=== PATIENT | female | born 1955 | race Caucasian/White ===

== ENCOUNTER → 2019-05-02 13:11 | Outpatient (CLI) | payer OTHER, SELFPAY ==
--- NOTE | ~2019-05-02 | MM_ITS ---
EXAMINATION: MM screening boo BI w jocelyn HISTORY: Screening mammogram TECHNIQUE: Craniocaudal and mediolateral oblique 3-D tomosynthesis images were obtained and synthetic 2-D images were generated. CAD analysis was submitted and interpreted. COMPARISON: No prior mammogram is available for comparison at this institution. BREAST PARENCHYMAL COMPOSITION: The breasts are heterogeneously dense, which may obscure small masses . FINDINGS: Scattered bilateral benign calcifications. There is no evidence of suspicious mass, calcifi cation, or architectural distortion to suggest malignancy in either breast. There has been no suspici ous interval change. IMPRESSION: 1. No mammographic evidence of malignancy. 2. Recommend routine screening mammography in one year. BI-RADS Category 2: Benign finding(s). Reviewed, dictated and finalized at location A. RIBUTION DRIVER
--- NOTE | ~2019-05-02 | DEXA_ITS ---
Bone Density Report Name: Yessenia Wallis Age: 63 Sex: Female Ethnicity: White Date of : 1955 Indication: postmenopausal; screening for osteoporosis; parental hip fracture; height loss; hysterectomy; Referring Provider: Domo, Rosette Study: Bone densitometry was performed. Exam Date: May 02, 2019 Accession number: [id number] Bone Density: Region BMD T-score Z-score Classification AP Spine (L1-L4) 0.911 -1.2 0.5 Osteopenia Femoral Neck (Left) 0.848 0.0 1.5 Normal Total Hip (Left) 0.998 0.5 1.6 Normal Femoral Neck (Right) 0.786 -0.6 0.9 Normal Total Hip (Right) 0.979 0.3 1.5 Normal Total Hip Mean 0.989 0.4 1.6 Normal World Health Organization criteria for BMD impression classify patients as: Normal (T-score at or above -1.0), Osteopenia (T-score between -1.0 and -2.5), or Osteoporosis (T-score at or below -2.5). 10-year Fracture Risk: FRAX not reported because: Treated for osteoporosis Clinical Information Provided by Patient: Parent has had a hip fracture Smokes Is being treated for osteoporosis Has used the following medications: HRT (i.e. estrogen/hormone therapy) Has the following medical conditions: Hysterectomy Patient maximum height was 69 Menopause Age: 41 No regular weight bearing exercise Drinks caffeinated beverages Onset of menses at age 14 Number of children 1 Impression: The patient has low bone mass, based on the Total Spine T-score. The patient has risk factors, including: parental hip fracture, smoking. Discussion: It is important to ask patients whether they are taking their medications and to encourage continued and appropriate compliance with their osteoporosis therapies to reduce fracture risk. It is also important to review their risk factors and encourage appropriate calcium and vitamin D intakes, exercise, fall prevention and other lifestyle measures. Follow-Up: Consider a repeat BMD and Vertebral Fracture Assessment (VFA) exam in 2 years or sooner if medically necessary, to reassess this patient's status. Reported by: DUDLEY on 05/02/2019 1:47:00 PM. Reviewed, dictated and finalized at location AAisha AVINA
== END ==
PROVIDERS: Visit Provider Nurse Practitioner Family
DX: M85.88 Other specified disorders of bone density and structure, other site (principal); Z78.0 Asymptomatic menopausal state; Z12.31 Encounter for screening mammogram for malignant neoplasm of breast
CPT/HCPCS: 77063; 77067; 77080

== ENCOUNTER 2020-01-08 10:59 | Outpatient (CLI) | payer MEDICARE, OTHER, SELFPAY ==
--- NOTE | ~2020-01-08 | CT_ITS ---
EXAMINATION:CT lung screening DATE: 01/08/2020 11:23 INDICATION: Personal history of tobacco dependence. Current smoker with 40 pack year history. TECHNIQUE: Computed tomography (CT) of the chest was performed without intravenous contrast. Automate d exposure control and iterative reconstruction technique were employed. The dose-length product (DLP ) was 73.13 mGy-cm. COMPARISON: None. FINDINGS: There is mild scarring at the lung apices. There is mild emphysema. There is a 3.4 x 2.8 cm mass in the lingula, consistent with primary bronchogenic carcinoma. There is a 15 mm nodule in left upper lobe, consistent with primary bronchogenic carcinoma versus metastatic disease. There are grea ter than 15 other scattered nodules in the lungs measuring up to 7 mm, consistent with granulomatous disease versus metastatic disease. A calcified right lung nodule and calcified hilar lymph nodes are consistent with old granulomatous disease. There are a few small scattered groundglass opacities in t he lungs, likely benign. No pleural effusion. The heart size is normal. No pericardial effusion. Ther e are changes of cholecystectomy. There is a 13 mm calcified nodule in the thyroid, likely not clinic ally significant. There is mild thoracic spondylosis. IMPRESSION: 1. Lung-RADS category 4X: Very suspicious. CT-guided biopsy of the lingular mass is recommended. I ca lled this result to Dr. Lewis on 01/08/20 at 11:38 AM. Reviewed, dictated and finalized at location A. IMPRESSION: 1. Lung-RADS category 4X: Very suspicious. CT-guided biopsy of the lingular mas s is recommended. I called this result to Dr. Lewis on 01/08/20 at 11:38 AM.
== END 2020-01-08 11:00 | disposition home or self-care (01) ==
PROVIDERS: PCP Internal Medicine Gastroenterology; Visit Provider Internal Medicine Hematology & Oncology
DX: Z12.2 Encounter for screening for malignant neoplasm of respiratory organs (principal); Z87.891 Personal history of nicotine dependence
CPT/HCPCS: G0297

== ENCOUNTER 2020-01-10 07:28 | Outpatient (CLI) | payer MEDICARE, OTHER, SELFPAY ==
--- NOTE | ~2020-01-10 | US_ITS ---
US abdomen complete EXAMINATION: US Abdomen Complete INDICATION: Increased SGOT PROCEDURE: Realtime High Resolution abdomen ultrasound. COMPARISON: No prior studies for comparison FINDINGS: Gallbladder is surgically absent. Common bile duct measures 4 mm. Liver echotexture within normal limits without focal mass. Liver surface is a nodular appearance, master picious for cirrhosis. Pancreas within normal limits. Pancreatic tail is obscured by bowel gas. Spl een is unremarkeable. Renal echotexture is within normal limits bilaterally without hydronephrosis, c ontour deforming mass or renal stone. Right kidney measures 10.6 cm. Left kidney measures 11.1 cm. Visualized aspects of the aorta and IVC are within normal limits. Portal vein is patent. No sonograph ic Ott's sign indicated by the technologist. IMPRESSION: 1: Nodular appearing liver surface, suspicious for cirrhosis. Reviewed, dictated and finalized at location B.
== END 2020-01-10 07:29 | disposition home or self-care (01) ==
PROVIDERS: PCP Internal Medicine Gastroenterology; Visit Provider Nurse Practitioner Adult Health
DX: R74.01 Elevation of levels of liver transaminase levels (principal)
CPT/HCPCS: 76700

== ENCOUNTER 2020-01-17 02:46 | Outpatient (CLI) | payer MEDICARE, OTHER, SELFPAY ==
[2020-01-17 18:02] LABS: SARS-CoV-2 RNA PCR Negative
== END 2020-01-17 02:47 | disposition home or self-care (01) ==
LOC: ANHCOVIDDT 02:46
PROVIDERS: PCP Internal Medicine Gastroenterology; Visit Provider Internal Medicine Hematology & Oncology
DX: Z01.812 Encounter for preprocedural laboratory examination (principal); Z20.828 Contact with and (suspected) exposure to other viral communicable diseases
CPT/HCPCS: 87635; C9803; U0003

== ENCOUNTER 2020-01-20 09:25 | Outpatient (CLI) | payer MEDICARE, OTHER, SELFPAY ==
[2020-01-13 09:50] VITALS: BMI 24.0
[2020-01-20] VITALS (10 sets, daily range): BP systolic 131–154; BP diastolic 73–92; PULSE 72–110; RESP 16–19; O2SAT 95–99
--- NOTE | ~2020-01-20 | XR_ITS ---
EXAMINATION: XR chest 1V DATE: 01/20/2020 12:07 INDICATION: Status post left lung biopsy TECHNIQUE: frontal view of the chest was obtained. COMPARISON: CT dated 01/08/2020 FINDINGS: The biopsied lingular mass projects over the left midlung zone. There is a smaller left upper lobe no dule projecting slightly cephalad to the aortic arch. No other airspace opacities, pulmonary edema, p leural effusion or pneumothorax. The cardiomediastinal silhouette is normal. IMPRESSION: 1. Nodules at the left upper lobe and lingula which are concerning for malignancy. No pneumothorax or other acute cardiopulmonary disease post biopsy of the larger lingular nodule. Reviewed, dictated and finalized at location A. ITY MAINTENANCE WORKER IMPRESSION: 1. Nodules at the left upper lobe and lingula which are concerning for malignan cy. No pneumothorax or other acute cardiopulmonary disease post biopsy of the l arger lingular nodule.
--- NOTE | ~2020-01-20 | CT_ITS ---
EXAMINATION: CT biopsy lung DATE: 01/20/2020 12:18 INDICATION: Left lung mass TECHNIQUE: The procedure including the risks and benefits was discussed with the patient. Risks discu ssed included infection, approximately 1/20 risk of symptomatic hemorrhage beyond mild hemoptysis, ap proximately 1/3 risk of pneumothorax, and approximately 1/10 risk of pneumothorax severe enough to wa rrant chest tube placement. The patient understood the risks and agreed to proceed. The patient was p laced supine in a slight RPO position. The skin overlying the lateral left chest wall was prepped an d draped in sterile fashion. Anesthetic was administered with 1% lidocaine subcutaneously. A 19 gau ge outer needle was advanced under CT guidance to the lesion of interest. A 20 gauge core biopsy need le was then used to obtain 5 core biopsy specimens. The needle was removed and the entry site was turner aned and dressed. There were no immediate complications. The dose-length product was 98.04 mGy-cm. FINDINGS: CT images demonstrate the outer needle tip adjacent to a 3.2 x 2.7 cm spiculated mass at th e posterior lingula. IMPRESSION: 1. Successful CT-guided biopsy of 3.2 cm mass at the lingula. Reviewed, dictated and finalized at location A. NESS SERVICES SPECIALIST SALES
--- NOTE | ~2020-01-20 | XR_ITS ---
EXAMINATION: XR chest 1V portable DATE: 01/20/2020 14:52 INDICATION: Left lung mass status post percutaneous biopsy. TECHNIQUE: A single frontal view of the chest was obtained. COMPARISON: Chest single view at 100 p.m. FINDINGS: There is a mass in lingula. There is a nodule in left upper lobe. No pleural effusion or pn eumothorax. The heart size is normal. IMPRESSION: 1. Mass and nodule in left lung suspicious for malignancy. Reviewed, dictated and finalized at location A. STRATION SPECIALIST
--- NOTE | ~2020-01-20 | XR_ITS ---
EXAMINATION: XR chest 1V portable DATE: 01/20/2020 13:10 INDICATION: Left lung mass status post percutaneous biopsy. TECHNIQUE: A single frontal view of the chest was obtained on 2 radiographs. COMPARISON: Chest single view at 12:02 PM FINDINGS: There is a mass in the lingula. There is a nodule in left upper lobe. No pleural effusion o r pneumothorax. The heart size is normal. IMPRESSION: 1. Mass and nodule in left lung suspicious for malignancy. Reviewed, dictated and finalized at location A. ICER
[2020-01-20 09:47] LABS: Basophils Absolute Auto 0.1 K/mm3 (0.0-0.1); Basophils Percent Auto 1.1 % (0.2-1.2); Eosinophils Absolute Auto 0.1 K/mm3 (0-0.3); Eosinophils Percent Auto 0.8 % (0-4.4); Hematocrit 50.5 % (37.0-47.0); Hemoglobin 17.2 g/dL (12.0-15.0); Immature Granulocyte Absolute 0.01 K/mm3 (0.00-0.031); Immature Granulocyte Percent A 0.1 % (0-0.5); Lymphocytes Absolute Auto 2.07 K/mm3 (0.9-3.2); Lymphocytes Percent Auto 27.8 % (18.3-44.2); Mean Corpuscular HGB Conc 34.1 g/dl (32-36); Mean Corpuscular Hemoglobin 33.5 pg (26-34); Mean Corpuscular Volume 98.4 fl (80-100); Mean Platelet Volume 9.7 fl (7.4-10.4); Monocytes Absolute Auto 0.6 K/mm3 (0.1-0.6); Monocytes Percent Auto 7.4 % (2.6-8.5); Neutrophils Absolute Auto 4.7 K/mm3 (1.3-6.7); Neutrophils Percent Auto 62.8 % (45.5-73.1); Platelet Count Result 266 k/mm3 (150-375); Red Blood Count 5.13 M/mm3 (4.2-5.4); Red Cell Distribution Width 12.1 % (11.5-14.5); White Blood Count 7.5 K/mm3 (4.5-10.0)
[2020-01-20 09:59] LABS: Prothrombin Time 13.2 Seconds (11.1-14.7)
--- NOTE | 2020-01-20 13:13 | SUR.PHASEII ---
PORTABLE CXR DONE.
--- NOTE | 2020-01-20 13:18 | SUR.PHASEII ---
1300; pt awake and alert. denies pain to lt chest. c/o headache. asking for coffee. cxr done at bedside. e 1305; report given to elvin lucero
--- NOTE | 2020-01-20 13:29 | SUR.PHASEII ---
DR. POLI GENTILE'S PT TO HAVE COFFEE ONCE 1300 XRAY IS DONE AND NO PNEUMOTHORAX.
--- NOTE | 2020-01-20 15:40 | SUR.PHASEII ---
DR. ASHTON CAME TO SEE PT PRIOR TO DISCHARGE.
== END 2020-01-20 15:30 | disposition home or self-care (01) ==
PROVIDERS: Radiology Diagnostic Radiology; PCP Internal Medicine Gastroenterology; Visit Provider Internal Medicine Hematology & Oncology
DX: C34.92 Malignant neoplasm of unspecified part of left bronchus or lung (principal)
CPT/HCPCS: 32405; 36415; 71045; 77012; 85025; 85610; 88305; 88342

== ENCOUNTER 2020-02-18 10:24 | Outpatient (CLI) | payer MEDICARE, OTHER, SELFPAY ==
--- NOTE | ~2020-02-18 | MR_ITS ---
EXAMINATION: MR brain/brain stem wo/w con DATE: 02/18/2020 11:47 INDICATION: Non-small cell cancer of left lung. TECHNIQUE: Magnetic resonance imaging (MRI) of the brain and brainstem was performed without with 13 mL MultiHance intravenous contrast. Sequences included sagittal and axial T1-weighted FSE, axial diff usion-weighted FS EPI, axial T2*-weighted GRE, axial T2-weighted FLAIR Propeller, and axial T2-weight ed Propeller. Postcontrast sequences included axial, sagittal, and coronal T1-weighted FSE. Apparent diffusion coefficient (ADC) maps were created. COMPARISON: None. FINDINGS: There is no intracranial hemorrhage, acute infarction, or abnormal intracranial mass lesion . 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 The ventricles are normal in size. The re is mild mucosal thickening in right maxillary sinus. The mastoid air cells are normal. The orbits are normal. IMPRESSION: 1. Normal brain. No evidence of metastatic disease. Reviewed, dictated and finalized at location A. ER THIRD
[2020-02-18 11:22] LABS: Estimated Glomerular Filt Rate > 60
== END 2020-02-18 10:25 | disposition home or self-care (01) ==
PROVIDERS: PCP Internal Medicine Gastroenterology; Visit Provider Internal Medicine Hematology & Oncology
DX: C34.92 Malignant neoplasm of unspecified part of left bronchus or lung (principal)
CPT/HCPCS: 70553; A9577

== ENCOUNTER 2020-03-05 08:56 | Outpatient (CLI) | payer MEDICARE, OTHER, SELFPAY ==
--- NOTE | ~2020-03-05 | PE_ITS ---
EXAMINATION: PET skull to mid thigh DATE: 03/05/2020 11:05 INDICATION: Non-small cell cancer of the left lung TECHNIQUE: mCi of 18-fluorodeoxyglucose (18-FDG) was administered i.v. Low dose computed tomography ( CT) images were acquired from the base of the brain to the proximal thighs for attenuation correction and anatomic localization. Positron emission tomography (PET) images were acquired after injection. Images including fused PET/CT images were reconstructed in axial, coronal, and sagittal planes. Autom atic exposure control is employed as a dose reduction technique. COMPARISON: CT dated 01/08/2020 FINDINGS: Head/neck: There is mild symmetric mucosal uptake in the neck without associated mass, likely physiologic. No ce rvical lymphadenopathy. Chest: There is a 1.4 cm left upper lobe nodule with maximum SUV of 6.4. There is a 3.7 x 2.9 cm lingular ma ss with maximum SUV of 7.34. Mild emphysema. There are additional scattered pulmonary nodules measuri ng up to 7 mm without abnormal FDG uptake there are areas of FDG uptake in the extrapleural fat poste riorly, likely physiologic. No associated mass. No thoracic lymphadenopathy. Scattered groundglass op acities are nonspecific, although likely benign. No significant pleural or pericardial effusion. Ther e is FDG uptake overlying multiple left posterior ribs. Considerations include misregistration artifa ct from adjacent uptake in the fat or less likely osseous metastases. No associated sclerotic or danica tic lesions are identified. Abdomen/pelvis/proximal thighs: No hypermetabolic activity is identified in the abdomen or pelvis. There are cholecystectomy clips. T he liver, spleen, pancreas, adrenal glands and kidneys are unremarkable. Nonobstructive bowel gas pat tern. No abnormal pelvic masses or fluid collections. IMPRESSION: 1. Left upper lobe masses are identified, largest in the lingula measuring 3.7 cm maximum axial dimen shelley. Both masses exhibit abnormal FDG uptake, consistent with malignancy, likely primary bronchogeni c carcinoma and/or metastatic disease. Multiple additional smaller pulmonary nodules measuring 7 mm o r less are identified without associated FDG uptake. This finding is nonspecific, although due to the ir small size. 2: FDG uptake overlying multiple left posterior ribs. Considerations include misregistration artifact from adjacent uptake in the fat or less likely osseous metastases. No associated sclerotic or blasti c lesions are identified. Consider correlation with nuclear bone scan. Reviewed, dictated and finalized at location A. GER FIBER IMPRESSION: 1. Left upper lobe masses are identified, largest in the lingula measuring 3.7 cm maximum axial dimension. Both masses exhibit abnormal FDG uptake, consistent with malignancy, likely primary bronchogenic carcinoma and/or metastatic disea se. Multiple additional smaller pulmonary nodules measuring 7 mm or less are id entified without associated FDG uptake. This finding is nonspecific, although d ue to their small size. 2: FDG uptake overlying multiple left posterior ribs. Considerations include mi sregistration artifact from adjacent uptake in the fat or less likely osseous m etastases. No associated sclerotic or blastic lesions are identified. Consider correlation with nuclear bone scan.
[2020-03-05 09:29] LABS: Glucose Point of Care 105 (65-105)
== END 2020-03-05 08:57 | disposition home or self-care (01) ==
PROVIDERS: PCP Internal Medicine Gastroenterology; Visit Provider Internal Medicine Hematology & Oncology
DX: C34.12 Malignant neoplasm of upper lobe, left bronchus or lung (principal)
CPT/HCPCS: 78815; A9552

== ENCOUNTER 2020-03-18 08:30 | Outpatient (CLI) | payer MEDICARE, OTHER, SELFPAY ==
--- NOTE | ~2020-03-18 | NM_ITS ---
EXAMINATION: NM bone scan whole body DATE: 03/18/2020 12:35 INDICATION: Malignant neoplasm of the left upper lobe TECHNIQUE: 25.2 mCi Tc-99m HDP was administered intravenously. Delayed whole-body scintigrams were o btained. COMPARISON: There are no relevant imaging studies at our institution. FINDINGS: Mild likely degenerative facet joint centered uptake on the left at C4-C5 and on the right at C2-C3. No abnormal uptake at the medial aspect of the bilateral posterior ribs at the sites of prior increas ed FDG uptake. Small focus of increased uptake in the region of the left ethmoid sinus likely related to sinus disease. Small focus of uptake at the left antecubital fossa likely at the site of radiotra cer injection. Mild lumbar levocurvature. IMPRESSION: 1. No evident metastatic disease. Reviewed, dictated and finalized at location A. H MIXER HELPER
== END 2020-03-18 08:31 | disposition home or self-care (01) ==
PROVIDERS: PCP Internal Medicine Gastroenterology; Visit Provider Internal Medicine Hematology & Oncology
DX: C34.12 Malignant neoplasm of upper lobe, left bronchus or lung (principal)
CPT/HCPCS: 78306; A9561

== ENCOUNTER 2020-03-30 00:38 | Outpatient (CLI) | payer MEDICARE, OTHER, SELFPAY ==
[2020-03-30 19:06] LABS: SARS-CoV-2 RNA PCR Positive
== END 2020-03-30 00:39 | disposition home or self-care (01) ==
LOC: ANHCOVIDDT 00:38
PROVIDERS: PCP Internal Medicine Gastroenterology; Visit Provider Surgery
DX: U07.1 COVID-19 (principal); Z01.812 Encounter for preprocedural laboratory examination
CPT/HCPCS: C9803; U0003

== ENCOUNTER 2020-03-31 09:30 | Outpatient (CLI) | payer MEDICARE, OTHER, SELFPAY ==
--- NOTE | 2020-03-31 09:34 | ECG_ITS ---
Measurements Intervals [place] Rate: 78 P: 78 SD: 161 QRS: -3 QRSD: 123 T: 98 QT: 389 QTc: 444 Interpretive Statements SINUS RHYTHM ATRIAL PREMATURE COMPLEXES LEFT BUNDLE BRANCH BLOCK ANTEROSEPTAL INFARCT OR DUE TO LBBB BASELINE ARTIFACT- I, II, AVR ABNORMAL ECG Electronically Signed On 03-31-2020 9:52:35 DIGITAL HARDWARE DESIGN ENGINEER by Jesus Garcia D.O.
[2020-03-31 10:02] LABS: Basophils Percent Auto 0.8 % (0.2-1.2); Eosinophils Percent Auto 0.8 % (0-4.4); Hematocrit 48.9 % (37.0-47.0); Hemoglobin 16.6 g/dL (12.0-15.0); Immature Granulocyte Absolute 0.02 K/mm3 (0.00-0.031); Immature Granulocyte Percent A 0.4 % (0-0.5); Lymphocytes Absolute Auto 1.47 K/mm3 (0.9-3.2); Lymphocytes Percent Auto 29.5 % (18.3-44.2); Mean Corpuscular HGB Conc 33.9 g/dl (32-36); Mean Corpuscular Volume 94.2 fl (80-100); Mean Platelet Volume 10.4 fl (7.4-10.4); Monocytes Absolute Auto 0.4 K/mm3 (0.1-0.6); Monocytes Percent Auto 8.8 % (2.6-8.5); Neutrophils Percent Auto 59.7 % (45.5-73.1); Platelet Count Result 156 k/mm3 (150-375); Red Blood Count 5.19 M/mm3 (4.2-5.4); Red Cell Distribution Width 13.9 % (11.5-14.5)
[2020-03-31 10:08] LABS: INR 0.9
[2020-03-31 10:09] LABS: Partial Thromboplastin Time 26.3 SECONDS (22.3-36.8)
== END 2020-03-31 09:31 | disposition home or self-care (01) ==
LOC: ANHSURGERY 09:34
PROVIDERS: PCP Internal Medicine Gastroenterology; Visit Provider Surgery
DX: Z01.818 Encounter for other preprocedural examination (principal); C34.90 Malignant neoplasm of unspecified part of unspecified bronchus or lung; Z51.81 Encounter for therapeutic drug level monitoring; Z79.899 Other long term (current) drug therapy; I44.7 Left bundle-branch block, unspecified
CPT/HCPCS: 36415; 85025; 85610; 85730; 93005

== ENCOUNTER 2020-05-11 00:26 | Day surgery (SDC) | payer MEDICARE, OTHER, SELFPAY ==
[2020-03-30 13:25] VITALS: BMI 23.6
[2020-04-30 14:00] VITALS: BMI 23.6
--- NOTE | ~2020-05-11 | XR_ITS ---
EXAMINATION: XR fl guide central line place EXAM DATE: 05/11/2020 13:00 INDICATION: Xander catheter insertion. TECHNIQUE: Fluoroscopy used during XR fl guide central line place performed by Dr. Jose Angel Washington MD. The DAP for this procedure was 1.6 mGym2. FINDINGS: Single frontal image demonstrating right-sided portacatheter, tip projecting over the expe cted location of the cavoatrial junction. Correlate with procedure note. IMPRESSION: Fluoroscopy used during XR fl guide central line place. Reviewed, dictated and finalized at location B. CE SUPPORT CLERK
--- NOTE | ~2020-05-11 | XR_ITS ---
EXAMINATION: XR chest port-a-cath/central EXAM DATE: 05/11/2020 13:23 INDICATION: Xander catheter insertion. TECHNIQUE: Portable AP frontal chest x-ray was obtained. Comparison is made to prior examination from 01/20/2020. FINDINGS: There is a right-sided portacatheter, tip projecting over the SVC, adequate. There is appro ximately 3 cm left midlung zone masslike density. Severe chronic hyperinflation. There is no pneumoth orax suspected. There are no pleural effusions. Cardiomediastinal silhouette is normal. IMPRESSION: 1. No evidence postprocedure pneumothorax. 2. Left midlung zone mass. Reviewed, dictated and finalized at location B. TERER HELPER
[2020-05-11 10:08] VITALS: BP 140/79; PULSE 88; RESP 18; TEMP 37.3; O2SAT 97
[2020-05-11] MEDS: LACTATED RINGERS 1,000 ML 30 ML IV CONT (10:25)
--- NOTE | 2020-05-11 11:31 | WPDANESEPPF ---
Anes - Initial Pre Proc Eval Procedure: Operation Date: 05/11/20 12:00 Proposed Procedures p Insertion Xander Cath - Jose Angel [place] MD Date/Time: 05/11/20 11:31 Surgeon: Jose Angel [place] MD Pre Op Diagnosis: Malignant Neoplasm Upper Lobe of Left Lung Patient Data Age: 64 Gender: F Height: 5 ft 8 in Weight: 68.8 kg Last Vital Signs Temp 37.3 C 05/11/20 10:08 Pulse 88 05/11/20 10:08 Resp 18 05/11/20 10:08 BP 140/79 05/11/20 10:08 Pulse Ox 97 05/11/20 10:08 Allergies Allergy/AdvReac Type Severity Reaction Status Date / Time pentazocine [From Anjali] Allergy Irritable Verified 05/11/20 10:31 Home Medications Medication Instructions Recorded Confirmed Type acetaminophen [Tylenol] 325 mg PO DAILY PRN 11/15/19 05/11/20 History aspirin 81 mg PO DAILY 11/15/19 05/11/20 History ibuprofen [Advil] 200 mg PO Q6H PRN 11/15/19 05/11/20 History lisinopril 5 mg PO DAILY 11/15/19 05/11/20 History fluticasone propionate [Flonase] 1 spray INTRANASAL DAILY 01/13/20 05/11/20 History ascorbic acid (vitamin C) [Vitamin 1 g PO DAILY 04/16/20 05/11/20 History C] zinc 50 mg PO DAILY 04/16/20 05/11/20 History alprazolam [Xanax] 0.25 mg PO BID 04/30/20 05/11/20 History dexamethasone See Rx Instructions .ROUTE .COMPLEX 04/30/20 05/11/20 History folic acid 1 mg PO DAILY 04/30/20 05/11/20 History ondansetron HCl [Zofran] 4 mg PO Q8H PRN 04/30/20 05/11/20 History Patient hx anesthesia problems: none Family hx anesthesia problems: none PMFSH Past Medical History Medical History Erythrocytosis HTN (hypertension) Lung cancer Family History Family History Grandparent Lung cancer Mother Breast cancer Small bowel cancer FH: kidney cancer Skin cancer Mother No problems noted. Father Skin cancer Social History Social History Smoking packs per day: 2 Smoking cigarettes per day: 40.0 Years smoked: 40 Smoking pack-years: 80.00 Smoking status: Current every day smoker Tobacco type: cigarettes Second hand tobacco smoke exposure: No Additional smoking assessment comments: cutting back since diagnosis Substance use: never Substance use type: does not use Living arrangements: with family Gender identity (if verbalized by the patient): Female Spiritual care concerns: No Anes - Eval Final PreProcedure Day of Procedure 05/11/20 11:31 Patient weight: normal Heart: regular rate and rhythm Lungs: decreased breath sounds Airway: Mallampati scale class II Neurological: alert and oriented Last oral intake: >/= 8 hours ASA classification: III Emergent: no Anesthetic plan: proceed Anesthesia type and monitoring: general GIVS and standard monitoring Informed Consent: The patient's anesthetic plan and its attendant risks and benefits were discussed with the patient/family/POA. Questions were solicited and answers provided to the satisfaction of the patient/family/POA.
--- NOTE | 2020-05-11 11:49 | PM.HPGS ---
History of Present Illness History of Present Illness Consent: Risks, benefits, and alternatives f placement of a Port-A-Cath have been discussed and questions answered. Patient agrees to proceed with procedure. Chief complaint: Malignant Neoplasm Upper Lobe of Left Lung Narrative: Yessenia Wallis is a 64 year old female who initially presented with an abnormal CT lung screening on 01/08/2020 which showed a 3.4 x 2.8 cm mass in the lingula, consistent with primary bronchogenic carcinoma. There is a 15 mm nodule in left upper lobe, consistent with primary bronchogenic carcinoma versus metastatic disease. There are greater than 15 other scattered nodules in the lungs measuring up to 7 mm, consistent with granulomatous disease versus metastatic disease. A calcified right lung nodule and calcified hilar lymph nodes are consistent with old granulomatous disease. Of note, she has a smoking history of 1 pack of cigarettes per day for over 40 years. She was being followed by Dr. Lewis for erythrocytosis. On 01/20/2020, she underwent a CT-guided biopsy of the left lung mass which revealed non-small cell carcinoma, favor adenocarcinoma. MRI of the brain on 02/18/2020 was negative for metastatic disease. PET scan on 03/05/2020 showed a 1.4 cm left upper lobe nodule with maximum SUV of 6.4, as well as a 3.7 x 2.9 cm lingular mass with maximum SUV of 7.34. There were no other FDG-avid lung findings. Multiple additional smaller pulmonary nodules did not have FDG uptake. There was some concern of FDG uptake overlying ribs, thought however to be misregistration artifact. Bone scan on 03/18/2020 confirmed no evidence of metastatic disease. She is referred now for a discussion regarding her radiotherapy options. Clinically, she is asymptomatic of her lung cancer and has a good performance status. She continues to smoke but has been cutting back since her diagnosis. She denies shortness of breath, chest pain, cough, headaches, numbness and weakness. She does have anxiety related to her diagnosis and upcoming treatment. She presents today for placement of a Port-A-Cath so that she could have combined chemo and radiation. Review of Systems Constitutional: Constitutional: Reports no additional constitutional complaints, Reports fatigue and Denies malaise Eyes: Eyes: Denies change in vision and Denies loss of vision ENT: Reports Normal hearing present, Denies change in voice, Denies dizziness, Denies hoarseness and Denies sore throat Cardiovascular: Cardiovascular: Denies chest pain, Denies leg edema and Denies dyspnea Respiratory: Respiratory: Denies cough, Denies dyspnea and Denies wheezing Comments: Patient has a 40 pack-year history of smoking cigarettes. Gastrointestinal: Gastrointestinal: Denies hematochezia, Denies change in bowel habits and Denies heartburn Comments: History of previos Lap caridad and ALEXANDRA BSO. Had no anesthesia problems. Genitourinary: Genitourinary: Denies urinary frequency and Denies urinary incontinence Neurologic: Reports Normal hearing present, Denies confusion, Denies dizziness, Denies loss of vision, Denies memory loss and Denies seizure-like activity Psychiatric: Psychiatric: Denies confusion, Denies depression and Denies memory loss Endocrine: Endocrine: Denies cold intolerance and Reports fatigue Hematologic/Lymphatic: Hematologic/Lymphatic: Denies easy bleeding and Denies easy bruising Allergic/Immunologic: Allergic/Immunologic: Denies wheezing PMFSH Past Medical History Medical History (Updated 05/11/20 @ 11:56 by Jose Angel Washington MD) Erythrocytosis HTN (hypertension) Lung cancer Family History Family History Grandparent Lung cancer Mother Breast cancer Small bowel cancer FH: kidney cancer Skin cancer Mother No problems noted. Father Skin cancer Social History Social History Smoking packs per
[2020-05-11] MEDS: KETOROLAC 15 MG/ML VIAL (*BKC) IV PUSH (12:03)
--- NOTE | 2020-05-11 12:10 | WPDHPUPDATE1 ---
History and Physical Update Update Date/Time: 05/11/20 12:10 History and Physical has been reviewed, including an updated exam of the patient. There are NO changes in the patient's condition. Risks, benefits, and alternatives have been discussed and questions answered. Patient agrees to proceed with procedure.
[2020-05-11] MEDS: ceFAZolin 2 GM/D5W 50 ML 2 GM/50 ML BAG IVPB (12:14)
[2020-05-11] MEDS: BUPIVACAINE/EPINEPHRINE 0.5% 30 ML VIAL INFILTRATE (12:42)
[2020-05-11] MEDS: HEPARIN SODIUM 5,000 UNITS/ML VIAL 5000 UNITS IRRIGATION (12:43)
[2020-05-11 13:09] VITALS: BP 158/72; PULSE 72; RESP 12; O2SAT 100
--- NOTE | 2020-05-11 13:21 | PM.PROC ---
Procedure Note - Detailed Date of procedure: 05/11/20 Pre-op diagnosis: Malignant Neoplasm Upper Lobe of Left Lung Procedure performed: Ultrasound-guided placement of Port-A-Cath Description of procedure: Patient was seen and marked in the pre-op area prior to coming to the OR. Patient was brought to the operating room. He was placed supine on the operating table and general IV sedation was induced. The nurse cost and sales record supervisor provided oxygen and IV sedation. Patient's head was carefully turned to the left side while in the supine position and the patient's entire neck and anterior chest on both sides was prepped and draped in the usual sterile fashion. Following this the appropriate time-out was completed confirming procedure and patient. We confirmed that all the needed equipment was present in the room. Following this the ultrasound probe was draped into the field and using the probe we carefully identified the carotid artery and jugular vein on the right neck. I marked the skin directly over the Rt. internal jugular vein. Following this, using the continuous ultrasound guidance, a Cook needle was placed through the skin into this vein. I then was able to draw back good dark blood. Once this was completed a guidewire using a J-tip was advanced through the needle and then the needle and the guidewire cover were withdrawn. C-arm fluoroscopy was used to confirm that the guidewire was nicely in the venous system. Once this was confirmed with the C - arm I preceded on by making the pocket for the port on the patient's anterior right chest approximately 3 centimeters below the clavicle overlying the chest wall. Local anesthetic was infiltrated into the skin where there was a transverse incision marked out. Incision was made and we made a pocket inferior to the incision with just a little dissection superior. The low-profile port was tried in the pocket and seemed to fit well. Following this the catheter which had been placed on a tunneling device was tunneled from the port site on the anterior right chest up to the right neck where a small incision had been made with an #11 blade knife. Then the catheter was pulled through so that we would have 15 centimeters to put into the central venous system once the dilation took place. Following this we placed the dilator and sheath over the guidewire in the jugular vein and carefully dilated the tract into the central venous system. The guidewire and dilator were then removed, carefully covering the end of the sheath to prevent air embolus. The end of the catheter which had been cut off straight across and the tip checked was then inserted into the sheath and into the neck. I then carefully pulled the 2 arms of the tear-away sheath away as the manufacturing assistant held the catheter in position with a DeBakey forceps. Following this we checked the position of the catheter with C-arm fluoroscopy confirming that the tip seemed to be in the distal superior vena cava near the junction with the right atrium. I felt that it was in good position and so the rest of the catheter was pulled down toward the feet into the port site. We then measured to the appropriate position to cut the catheter to attach it to the port stem. Then the connector sealing device for the catheter port was placed onto the catheter and then the catheter cut to the appropriate length and inserted onto the stem of the port. Then the connector was advanced onto the stem over the catheter sealing it to the port. A single 3- 0 Prolene suture was also used during this to suture the connector to the port and to the underlying musculature. Following this at one other site the port was sutured to the underlying musculature with the 3-0 Proline. Both prior to connecting the catheter to the port and then using a straight Jang needle following this connection, the port was aspirated of good dark blood and flushed with heparinized saline to keep the catheter from having any air in it
[2020-05-11 13:25] VITALS: BP 161/89; PULSE 55; RESP 16; O2SAT 100
--- NOTE | 2020-05-11 13:45 | SUR.PHASEII ---
1345- Dr. Carvalho notified patient's HR into 30's but not sustaining. Patient asymptomatic at this time. Dr. Carvalho to bedside to assess patient who denies symptoms and HR noted to be in the 80's. No new orders.
[2020-05-11 13:50] VITALS: BP 176/96; PULSE 85; RESP 16; O2SAT 100
[2020-05-11 14:10] VITALS: BP 179/83; PULSE 72; RESP 16
== END 2020-05-11 14:22 | disposition home or self-care (01) ==
PROVIDERS: PCP Internal Medicine Gastroenterology; Visit Provider Surgery
PROC: (CPT 36561; principal; 2020-05-11 12:00)
DX: C34.12 Malignant neoplasm of upper lobe, left bronchus or lung (principal); Z79.82 Long term (current) use of aspirin; I10 Essential (primary) hypertension; D75.1 Secondary polycythemia; F17.210 Nicotine dependence, cigarettes, uncomplicated
CPT/HCPCS: 36561; 77001; C1788; J0690; J1644; J1885; J2250; J2704; J3010; J7040; J7120

== ENCOUNTER 2020-07-20 07:31 | Outpatient (CLI) | payer MEDICARE, OTHER, SELFPAY ==
--- NOTE | ~2020-07-20 | CT_ITS ---
EXAMINATION: CT diagnostic chest w con DATE: 07/20/2020 08:07 INDICATION: Non-small cell cancer of the left lung TECHNIQUE: Transaxial computed tomographic images of the chest were obtained after the administration of 75 cc of Omnipaque 350 intravenous contrast. The dose-length product (DLP) was 146.05 mGy-cm. Ite rative reconstruction was used. COMPARISON: 01/08/2020 FINDINGS: A 4.7 x 3.4 cm mass of the lingula previously measured 3.4 x 2.8 cm. A 1.5 cm nodule of the left upper lobe is stable. There are multiple additional nodules scattered throughout the lungs. Sev eral of the nodules have increased in size. For instance a 6 mm nodule of the right middle lobe on im age 89 previously measured 5 mm and an 11 mm nodule of the right lower lobe previously measured 7 mm. There is no pleural effusion or pneumothorax. There is mild emphysema. A few stable groundglass nodu les are seen throughout the lungs. The heart size is normal. No pathologically enlarged thoracic lymp h nodes are identified. A right internal jugular Port-A-Cath ends with its tip in the distal superior vena cava. There is mild thoracic spondylosis. IMPRESSION: 1. Enlarging lingular mass and multiple enlarging pulmonary nodules, consistent with history of non-s mall cell lung cancer with likely metastatic disease. Reviewed, dictated and finalized at location A. IMPRESSION: 1. Enlarging lingular mass and multiple enlarging pulmonary nodules, consistent with history of non-small cell lung cancer with likely metastatic disease.
== END 2020-07-20 07:32 | disposition home or self-care (01) ==
PROVIDERS: PCP Internal Medicine Gastroenterology; Visit Provider Internal Medicine Hematology & Oncology
DX: C34.92 Malignant neoplasm of unspecified part of left bronchus or lung (principal)
CPT/HCPCS: 71260; Q9967

== ENCOUNTER 2020-09-17 06:33 | Outpatient (CLI) | payer MEDICARE, OTHER, SELFPAY ==
--- NOTE | ~2020-09-17 | CT_ITS ---
EXAMINATION: CT diagnostic chest w con DATE: 09/17/2020 07:00 INDICATION: Lung cancer TECHNIQUE: Transaxial computed tomographic images of the chest were obtained after the administration of 75 cc of Omnipaque 350 intravenous contrast. The dose-length product (DLP) was 150.82 mGy-cm. Ite rative reconstruction was used. COMPARISON: 07/20/2020 FINDINGS: A 4.3 x 3.2 cm mass of the lingula is not significantly changed since the comparison examin ation. A 1.5 cm spiculated nodule of the left upper lobe is also not significantly changed. There are several additional stable solid and groundglass nodules scattered throughout the lungs. No new pulmo nary nodules are identified. There is mild atelectasis of the lower lobes. No pleural effusion or pne umothorax is identified. There is mild emphysema. No pathologically enlarged thoracic lymph nodes are identified. The heart size is normal. Calcified nodules of the left thyroid are noted. A right inter nal jugular Port-A-Cath ends with its tip in the distal superior vena cava. There is mild thoracic sp ondylosis. Cholecystectomy clips are noted. IMPRESSION: 1. Stable lingular mass and multiple stable pulmonary nodules, consistent with history of non-small c ell lung cancer and metastatic disease. Reviewed, dictated and finalized at location B. IMPRESSION: 1. Stable lingular mass and multiple stable pulmonary nodules, consistent with history of non-small cell lung cancer and metastatic disease.
== END 2020-09-17 06:34 | disposition home or self-care (01) ==
LOC: ANHIMG 06:39
PROVIDERS: PCP Internal Medicine Gastroenterology; Visit Provider Internal Medicine Hematology & Oncology
DX: C34.92 Malignant neoplasm of unspecified part of left bronchus or lung (principal)
CPT/HCPCS: 71260; Q9967

== ENCOUNTER 2020-12-21 07:01 | Outpatient (CLI) | payer MEDICARE, OTHER, SELFPAY ==
--- NOTE | ~2020-12-21 | CT_ITS ---
EXAMINATION: CT diagnostic chest w con EXAM DATE: 12/21/2020 07:36 INDICATION: NSCC of the left lung. TECHNIQUE: Spiral CT of the chest following intravenous injection of 75 mL Omnipaque 350. Axial, cor onal and sagittal images of the chest were reviewed. Coronal maximum intensity pixel images of chest reviewed. The dose-length product (DLP) for this examination was 154.79 mGy-cm. The exposure was t ailored according to patient size (auto mA exposure control), and iterative reconstruction (ASIR) was used as additional dose reduction technique. Comparison is made to prior examination from 09/17/2020. FINDINGS: Mild interval decrease in the volume of the lingular mass now measuring about 3.4 x 2.3 cm . The spiculated nodule in the left upper lobe measures about 1.1 cm, also slight interval decrease i n volume suspected. There is a right-sided portacatheter. Some scattered basilar predominant nodules probably metastatic disease have also slightly decreased in size. There is mild to moderate emphysema and hyperinflation. There are no pleural or pericardial effusions . Tracheobronchial tree is patent. There is no mediastinal, hilar or axillary lymphadenopathy. There is no pneumothorax. Heart normal in size. No evidence of coronary arterial calcification. There are cholecystectomy clips. There is thoracic spondylosis without osteoblastic or osteolytic le sions identified. IMPRESSION: 1. Lingular mass, scattered pulmonary metastases with modest interval improvement in sizes. 2. Mild to moderate emphysema and hyperinflation. Reviewed, dictated and finalized at location A. IMPRESSION: 1. Lingular mass, scattered pulmonary metastases with modest interval improvem ent in sizes. 2. Mild to moderate emphysema and hyperinflation.
== END 2020-12-21 07:02 | disposition home or self-care (01) ==
LOC: ANHIMG 07:04
PROVIDERS: PCP Internal Medicine Gastroenterology; Visit Provider Internal Medicine Hematology & Oncology
DX: C34.92 Malignant neoplasm of unspecified part of left bronchus or lung (principal); J43.9 Emphysema, unspecified; R91.8 Other nonspecific abnormal finding of lung field
CPT/HCPCS: 71260; Q9967

== ENCOUNTER 2021-04-05 07:23 | Outpatient (CLI) | payer MEDICARE, OTHER, SELFPAY ==
--- NOTE | ~2021-04-05 | CT_ITS ---
EXAMINATION:CT diagnostic chest w con DATE: 04/05/2021 08:06 INDICATION: Non-small cell cancer of lung. TECHNIQUE: Computed tomography (CT) of the chest was performed with 75 mL Omnipaque 350 intravenous c ontrast. Automated exposure control and iterative reconstruction technique were employed. The dose-le ngth product (DLP) was 151.17 mGy-cm. COMPARISON: CT chest 12/21/2020, 01/08/2020 FINDINGS: There is mild scarring at the lung apices. There is mild emphysema. Calcified right lung no dules and calcified right hilar lymph nodes are consistent with old granulomatous disease. There is a 5.5 x 2.8 cm airspace and groundglass mass with air bronchograms in left upper lobe. There are great er than 10 scattered nodules in the lungs. For example, an 8 mm nodule in left lower lobe is unchange d. A 10 mm nodular in right lower lobe is unchanged. No pleural effusion. A 12 mm nodule in left uppe r lobe is unchanged. Again seen are a few scattered groundglass opacities in the lungs. No acute grou ndglass opacities to correlate with the recent positive COVID-19 test. No pleural effusion. The heart size is normal. No pericardial effusion. There is a right internal jugular port with tip in superior vena cava. There is mild thoracic spondylosis. IMPRESSION: 1. Stable mass in left lung upper lobe, consistent with primary breast carcinoma and changes of radia tion therapy. 2. Greater than 10 scattered pulmonary nodules measuring up to 12 mm, stable from 12/21/2020, but wors ened from 01/08/2020, consistent with metastatic disease. 3. Mild emphysema. Reviewed, dictated and finalized at location A. PROCESSOR IMPRESSION: 1. Stable mass in left lung upper lobe, consistent with primary breast carcinom a and changes of radiation therapy. 2. Greater than 10 scattered pulmonary nodules measuring up to 12 mm, stable fr om 12/21/2020, but worsened from 01/08/2020, consistent with metastatic disease. 3. Mild emphysema.
== END 2021-04-05 07:24 | disposition home or self-care (01) ==
LOC: ANHIMG 07:28
PROVIDERS: PCP Internal Medicine Gastroenterology; Visit Provider Internal Medicine Hematology & Oncology
DX: C34.92 Malignant neoplasm of unspecified part of left bronchus or lung (principal); J43.9 Emphysema, unspecified; R91.8 Other nonspecific abnormal finding of lung field
CPT/HCPCS: 71260; Q9967

== ENCOUNTER 2021-06-28 06:34 | Outpatient (CLI) | payer MEDICARE, OTHER, SELFPAY ==
--- NOTE | ~2021-06-28 | CT_ITS ---
EXAMINATION: CT diagnostic chest w con DATE: 06/28/2021 07:00 INDICATION: Non-small cell cancer of the left lung TECHNIQUE: Transaxial computed tomographic images of the chest were obtained after the administration of 75 cc of Omnipaque 350 intravenous contrast. The dose-length product (DLP) was 156.01 mGy-cm. Ite rative reconstruction was used. COMPARISON: 04/05/2021 FINDINGS: There is a stable mass of the left upper lobe measuring approximately 5.2 x 2.8 cm. Again n oted are multiple additional nodules scattered throughout the lungs measuring up to 12 mm in the left upper lobe. No new pulmonary nodules are identified. Groundglass opacities scattered throughout the lungs are also stable. There is no pleural effusion or pneumothorax. A right internal jugular Port-A- Cath ends with its tip in the distal superior vena cava. No pathologically enlarged thoracic lymph no laureano are identified. The heart size is normal. There is mild emphysema. The gallbladder is surgically absent. There is mild thoracic spondylosis. IMPRESSION: 1. Stable left upper lobe mass, consistent with primary bronchogenic carcinoma. 2. Multiple stable nodules scattered throughout the lungs, consistent with metastatic disease. Reviewed, dictated and finalized at location A. IMPRESSION: 1. Stable left upper lobe mass, consistent with primary bronchogenic carcinoma. 2. Multiple stable nodules scattered throughout the lungs, consistent with meta static disease.
== END 2021-06-28 06:35 | disposition home or self-care (01) ==
PROVIDERS: PCP Internal Medicine Gastroenterology; Visit Provider Internal Medicine Hematology & Oncology
DX: C34.92 Malignant neoplasm of unspecified part of left bronchus or lung (principal); R91.8 Other nonspecific abnormal finding of lung field
CPT/HCPCS: 71260; Q9967

== ENCOUNTER 2021-09-16 06:37 | Outpatient (CLI) | payer MEDICARE, OTHER, SELFPAY ==
--- NOTE | ~2021-09-16 | CT_ITS ---
EXAMINATION: CT diagnostic chest w con DATE: 09/16/2021 07:05 INDICATION: Non-small cell cancer of the left lung TECHNIQUE: Computed tomography (CT) of the chest was performed with 75 CC Omnipaque 350 intravenous c ontrast. Automated exposure control and iterative reconstruction technique were employed. Exam dose: 151.48 mGy-cm total exam DLP. COMPARISON: 06/28/2021 CT chest FINDINGS: Moderate emphysematous changes of the lungs. Interval mild increased size of lingular irregular mass lesion and mild interval increase of left upp er lobe mass, previously 12 mm, currently up to 13.7 mm. Stable peripheral 3.5 mm right upper lobe nodule. There are 5 stable up to proxy 4 mm middle lobe opacities Occasional stable right lower lobe masses measuring up to 7 mm and 9.7 mm. Stable approximate 5 mm peripheral left upper lobe nodule. Stable occasional additional smaller perip heral left upper lobe opacities. Slightly increased size of a posterolateral peripheral left lower lobe nodule (series 4 image 95), me asuring approximately 6.1 mm compared to 5.3 mm on 06/28/2021. There are at least 6 additional 8 mm or smaller left lower lobe opacities which are stable since 06/28. Normal heart size. No pericardial effusion. No thoracic aortic aneurysm or dissection. No hilar or me diastinal mass lesion or lymphadenopathy. Calcified right hilar nodes consistent with old granulomato us disease. Right Port-A-Cath catheter tip in lower aspect of superior vena cava. Normal morphology of the adrenal glands. Status post cholecystectomy No suspicious osteolytic or osteoblastic lesions are noted. Osteopenia. IMPRESSION: Interval mild increased size of irregular lingular mass and interval slight increased si ze of left upper lobe mass since 06/28/2021 Slightly increased size of the posterolateral peripheral left lower lobe nodule from 5.3 mm on 022 to 6.1 mm currently Multiple additional bilateral pulmonary nodules are stable Moderate emphysema Right Port-A-Cath catheter in superior vena cava Reviewed, dictated and finalized at Location A. Reviewed, dictated and finalized at location B. IMPRESSION: Interval mild increased size of irregular lingular mass and interv al slight increased size of left upper lobe mass since 06/28/2021 Slightly increased size of the posterolateral peripheral left lower lobe nodule from 5.3 mm on 06/28/2021 to 6.1 mm currently Multiple additional bilateral pulmonary nodules are stable Moderate emphysema Right Port-A-Cath catheter in superior vena cava
== END 2021-09-16 06:38 | disposition home or self-care (01) ==
PROVIDERS: PCP Internal Medicine Gastroenterology; Visit Provider Internal Medicine Hematology & Oncology
DX: C34.92 Malignant neoplasm of unspecified part of left bronchus or lung (principal); J43.9 Emphysema, unspecified
CPT/HCPCS: 71260; Q9967

== ENCOUNTER 2021-11-23 06:36 | Outpatient (CLI) | payer MEDICARE, OTHER, SELFPAY ==
--- NOTE | ~2021-11-23 | CT_ITS ---
EXAMINATION: CT diagnostic chest w con DATE: 11/23/2021 07:23 INDICATION: Non-small cell cancer of the left lung TECHNIQUE: Transaxial computed tomographic images of the chest were obtained after the administration of 75 cc of Omnipaque 350 intravenous contrast. The dose-length product (DLP) was 150.37 mGy-cm. Ite rative reconstruction was used. COMPARISON: 09/16/2021 FINDINGS: There is a stable mass of the left orbital lobe/lingula measuring up to 5.5 cm. A 1.4 cm no dule of the left upper lobe previously measured 1.2 cm. A 9 mm nodule in the medial aspect of the rig ht lower lobe previously measured 5 mm (image 82). There are multiple additional stable solid and tarik undglass nodules throughout the lungs. No pleural effusion or pneumothorax. A right internal jugular Port-A-Cath ends with its tip in the distal superior vena cava. No pathologically enlarged thoracic l ymph nodes are identified. The heart size is normal. The gallbladder is surgically absent. There is m ild thoracic spondylosis. IMPRESSION: 1. Stable left upper lobe mass, consistent with primary bronchogenic carcinoma. 2. Interval increase in size of nodules in the left upper lobe and right lower lobe. 3. Multiple additional stable nodules, consistent with metastatic disease. 4. Multiple stable groundglass nodules. Reviewed, dictated and finalized at location B.
== END 2021-11-23 06:37 | disposition home or self-care (01) ==
PROVIDERS: PCP Internal Medicine Gastroenterology; Visit Provider Internal Medicine Hematology & Oncology
DX: C34.92 Malignant neoplasm of unspecified part of left bronchus or lung (principal); R91.8 Other nonspecific abnormal finding of lung field
CPT/HCPCS: 71260; Q9967

== ENCOUNTER 2022-01-25 06:35 | Outpatient (CLI) | payer MEDICARE, OTHER, SELFPAY ==
--- NOTE | ~2022-01-25 | CT_ITS ---
EXAMINATION: CT diagnostic chest w con DATE: 01/25/2022 06:53 INDICATION: Non-small cell cancer of the left lung TECHNIQUE: Transaxial computed tomographic images of the chest were obtained after the administration of 75 cc of Omnipaque 350 intravenous contrast. The dose-length product (DLP) was 151.26 mGy-cm. Ite rative reconstruction was used. COMPARISON: 11/23/2021 FINDINGS: Again seen is a stable mass of the left lower lobe/lingula measuring up to 5.5 cm. A 1.4 cm nodule in the medial aspect of the left upper lobe is stable. A 1.6 cm nodule in the medial aspect o f the right lower lobe previously measured 9 mm. Again noted are multiple smaller stable solid and gr oundglass nodules throughout the lungs. There is mild emphysema. No pleural effusion or pneumothorax. No pathologically enlarged thoracic lymph nodes are identified. The heart size is normal. A right in ternal jugular Port-A-Cath ends with its tip in the distal superior vena cava. There is mild thoracic spondylosis. The gallbladder is surgically absent. IMPRESSION: 1. Stable left upper lobe mass, consistent with primary bronchogenic carcinoma. 2. Stable right upper lobe nodule and enlarging right lower lobe nodule as well as multiple additiona l stable solid nodules, consistent with metastatic disease 3. Multiple stable groundglass nodules. Reviewed, dictated and finalized at location B. IFE PRACTITIONER IMPRESSION: 1. Stable left upper lobe mass, consistent with primary bronchogenic carcinoma. 2. Stable right upper lobe nodule and enlarging right lower lobe nodule as well as multiple additional stable solid nodules, consistent with metastatic diseas e 3. Multiple stable groundglass nodules.
== END 2022-01-25 06:36 | disposition home or self-care (01) ==
LOC: ANHIMG 06:38
PROVIDERS: PCP Internal Medicine Gastroenterology; Visit Provider Internal Medicine Hematology & Oncology
DX: C34.92 Malignant neoplasm of unspecified part of left bronchus or lung (principal); R91.8 Other nonspecific abnormal finding of lung field
CPT/HCPCS: 71260; Q9967

== ENCOUNTER 2022-05-31 06:33 | Outpatient (CLI) | payer MEDICARE, OTHER, SELFPAY ==
--- NOTE | ~2022-05-31 | CT_ITS ---
EXAMINATION:CT diagnostic chest w con DATE: 05/31/2022 07:16 INDICATION: Non-small cell lung cancer on the left. TECHNIQUE: Computed tomography (CT) of the chest was performed with 75 mL Omnipaque 350 intravenous c ontrast. Automated exposure control and iterative reconstruction technique were employed. The dose-le ngth product (DLP) was 147.19 mGy-cm. COMPARISON: Chest CT 01/25/2022, 07/20/20, 01/08/20, PET/CT 03/05/20 FINDINGS: There is mild scarring at the lung apices. There is mild emphysema. Calcified right lung no dules and calcified right hilar lymph nodes are consistent with old granulomatous disease. There is m ild atelectasis bilaterally. There is a 6.1 x 3.3 cm mass in with air bronchograms in lingula that pr eviously measured 5.9 x 2.9 cm. Again seen are scattered small groundglass opacities in the lungs. Th ere is a 1.4 cm nodule in left upper lobe without change. There are greater than 10 other scattered n odules in the lungs measuring up to 10 mm in right lower lobe without change. No pleural effusion. Th e heart size is normal. No pericardial effusion. There is a 14 mm mass in right adrenal gland measuri ng soft tissue attenuation. There is 11 mm mass in left adrenal gland measuring soft tissue attenuati on. These masses are stable from 03/05/2021 when PET was negative for increased activity, likely shaji omas. There is mild thoracic spondylosis. IMPRESSION: 1. Stable mass in lingula and multiple stable pulmonary nodules, consistent with primary bronchogenic carcinoma and metastatic disease. Reviewed, dictated and finalized at location A. IMPRESSION: 1. Stable mass in lingula and multiple stable pulmonary nodules, consistent wit h primary bronchogenic carcinoma and metastatic disease.
== END 2022-05-31 06:34 | disposition home or self-care (01) ==
PROVIDERS: PCP Internal Medicine Gastroenterology; Visit Provider Internal Medicine Hematology & Oncology
DX: C34.92 Malignant neoplasm of unspecified part of left bronchus or lung (principal)
CPT/HCPCS: 71260; Q9967

== ENCOUNTER 2022-09-01 08:50 | Outpatient (CLI) | payer MEDICARE, OTHER, SELFPAY ==
--- NOTE | ~2022-09-01 | CT_ITS ---
EXAMINATION: CT abdomen pelvis w con DATE: 09/01/2022 09:37 INDICATION: Non-small cell cancer of left lung. TECHNIQUE: Computed tomography (CT) of the abdomen and pelvis was performed with 100 mL Omnipaque 350 intravenous contrast. Automated exposure control and iterative reconstruction technique were employe d. The dose-length product was 453.53 mGy-cm. COMPARISON: Chest CT 05/31/2022, 01/25/2022, 01/08/20, PET CT 03/05/2020 FINDINGS: The visualized portions of the lung bases demonstrate greater than 10 scattered pulmonary n odules measuring up to 9 mm in right lower lobe. No pleural effusion. The heart size is normal. No pe ricardial effusion. The liver is normal. There are changes of cholecystectomy. The spleen and pancrea s are normal. There is chronic thickening of the adrenal glands, likely benign. The kidneys are malik l. There are no dilated loops of bowel. The appendix is normal. Aortic atherosclerosis is noted. Ther e are no pathologically enlarged lymph nodes. There is no free intraperitoneal fluid. There is mild l umbar spondylosis. IMPRESSION: 1. Pulmonary nodules in the visualized portions of the lung bases, stable from 01/08/2020, consistent with granulomatous disease and/or metastatic disease. Reviewed, dictated and finalized at location A.
== END 2022-09-01 08:51 | disposition home or self-care (01) ==
PROVIDERS: PCP Internal Medicine Gastroenterology; Visit Provider Internal Medicine Hematology & Oncology
DX: C34.92 Malignant neoplasm of unspecified part of left bronchus or lung (principal); R91.8 Other nonspecific abnormal finding of lung field
CPT/HCPCS: 74177; Q9967

== ENCOUNTER 2022-09-28 06:37 | Outpatient (CLI) | payer MEDICARE, OTHER, SELFPAY ==
--- NOTE | ~2022-09-28 | CT_ITS ---
Clinical Indication: Lung cancer CT Scan of the Chest with Contrast: Technique: Contiguous sections were acquired throughout the chest after intravenous administration of 75 cc of Omnipaque 350. Dose reduction technique was used on this scan by utilizing automated exposu re control and iterative reconstruction technique. The dose-length product (DLP) was 169.19 mGy-cm. COMPARISON: 05/31/2022 Findings: There is no evidence of any significant mediastinal, hilar or axillary lymphadenopathy. There is no f illing defect in the pulmonary arterial tree to suggest pulmonary embolus. There is no evidence of ao rtic dissection or aneurysm. There is no evidence of pleural or pericardial effusion. Dominant irregular masslike consolidation at the lingula is similar to prior exam, measuring approxim ately 5.5 cm in maximum diameter (axial image 74). 1.3 cm left upper lobe anteromedially pulmonary no dule is essentially unchanged from prior exam (axial image 39). Multiple bilateral subcentimeter asira d and groundglass pulmonary nodules/opacities are also stable from prior exam. Mild emphysema noted. Images through the upper abdomen reveal stable probable small bilateral adrenal nodules. Impression: Dominant masslike consolidation in the lingula is similar to prior exam. Numerous additional smaller pulmonary nodules, both solid and groundglass lesions, are also essentially stable from prior exam. F indings are consistent with neoplasm and/or metastatic disease. Mild emphysema. Stable small bilateral adrenal nodules. Reviewed, dictated and finalized at location . Impression: Dominant masslike consolidation in the lingula is similar to prior exam. Rober us additional smaller pulmonary nodules, both solid and groundglass lesions, ar e also essentially stable from prior exam. Findings are consistent with neoplas m and/or metastatic disease. Mild emphysema. Stable small bilateral adrenal nodules.
== END 2022-09-28 06:38 | disposition home or self-care (01) ==
PROVIDERS: PCP Internal Medicine Gastroenterology; Visit Provider Internal Medicine Hematology & Oncology
DX: C34.92 Malignant neoplasm of unspecified part of left bronchus or lung (principal); J43.9 Emphysema, unspecified; D35.01 Benign neoplasm of right adrenal gland; D35.02 Benign neoplasm of left adrenal gland
CPT/HCPCS: 71260; Q9967

== ENCOUNTER 2022-12-27 06:37 | Outpatient (CLI) | payer MEDICARE, OTHER, SELFPAY ==
--- NOTE | ~2022-12-27 | CT_ITS ---
Clinical Indication: Non-small cell carcinoma left lung CT Scan of the Chest, Abdomen, and Pelvis with Contrast: Technique: Contiguous sections were acquired throughout the chest, abdomen, and pelvis after intraven ous administration of 100 cc of Omnipaque 350. Dose reduction technique was used on this scan by uti lizing automated exposure control and iterative reconstruction technique. The dose-length product (DL P) was 609.31 mGy-cm. COMPARISON: 09/28/2022 and 09/01/2022 Findings: Right-sided Mediport present. There is no evidence of any significant mediastinal, hilar or axillary lymphadenopathy. The mediastin al soft tissues appear normal. There is no evidence of pleural or pericardial effusion. Irregular lingular pulmonary mass is similar to prior exam, measuring approximately 4.8 x 4.2 cm in t ransverse dimensions (axial image 71). Additional 1.4 cm left upper lobe pulmonary nodule is essentia lly unchanged (axial image 39). Stable 5 mm groundglass pulmonary nodule left upper lobe (axial image 48). Several additional tiny subcentimeter left lung pulmonary nodules are unchanged. Additional tarik undglass nodules in the left lower lobe are unchanged. There is mild emphysema. 1.1 cm right lower lo be pulmonary nodules unchanged (axial image 110). The liver, spleen, pancreas, adrenals and kidneys are within normal limits. Cholecystectomy clips are present. No evidence of aortic aneurysm. No lymphadenopathy. No bowel obstruction or bowel wall thickening. There is no evidence to suggest acute appendicitis. Urinary bladder is unremarkable. No pelvic mass evident. No ascites. Impression: 4.8 cm dominant lingular pulmonary mass is similar to prior exam. Multiple additional pulmonary nodul es and groundglass pulmonary lesions are also essentially stable from prior exam, as detailed above. Findings are consistent with neoplastic/metastatic disease. Mild emphysema. Reviewed, dictated and finalized at [facility]. Impression: 4.8 cm dominant lingular pulmonary mass is similar to prior exam. Multiple kelly tional pulmonary nodules and groundglass pulmonary lesions are also essentially stable from prior exam, as detailed above. Findings are consistent with neopla stic/metastatic disease. Mild emphysema.
[2022-12-27 07:17] LABS: Estimated Glomerular Filt Rate > 60
== END 2022-12-27 06:38 | disposition home or self-care (01) ==
LOC: ANHIMG 06:37
PROVIDERS: PCP Internal Medicine Gastroenterology; Visit Provider Internal Medicine Hematology & Oncology
DX: C34.92 Malignant neoplasm of unspecified part of left bronchus or lung (principal); J43.9 Emphysema, unspecified
CPT/HCPCS: 71260; 74177; Q9967

== ENCOUNTER 2023-04-03 06:37 | Outpatient (CLI) | payer MEDICARE, OTHER, SELFPAY ==
--- NOTE | ~2023-04-03 | CT_ITS ---
Clinical Indication: Lung cancer CT Scan of the Chest with Contrast: Technique: Contiguous sections were acquired throughout the chest after intravenous administration of 75 cc of Omnipaque 350. Dose reduction technique was used on this scan by utilizing automated exposu re control and iterative reconstruction technique. The dose-length product (DLP) was 151.26 mGy-cm. COMPARISON: 12/27/2022 Findings: There is no evidence of any significant mediastinal, hilar or axillary lymphadenopathy. There is no f illing defect in the pulmonary arterial tree to suggest pulmonary embolus. There is no evidence of ao rtic dissection or aneurysm. There is no evidence of pleural or pericardial effusion. There are stable subcentimeter nodules at the right lower lobe and right middle lobe, largest the rig ht lower lobe measuring 8 mm. Multiple subcentimeter pulmonary nodules in the left lower lobe are unc hanged. Pulmonary mass at the lingula is essentially unchanged, measuring up to approximately 5.7 cm in maximum diameter. Additional subcentimeter left upper lobe pulmonary nodules are unchanged. Stable 1.6 cm spiculated nodule at the medial left upper lobe (axial image 33). Mild emphysema noted. Images through the upper abdomen reveal no abnormalities. Impression: Stable dominant lingular pulmonary mass with numerous additional bilateral pulmonary nodules. Finding s are consistent with neoplastic/metastatic disease. Mild emphysema. Reviewed, dictated and finalized at location . [facility] [employer] Impression: Stable dominant lingular pulmonary mass with numerous additional bilateral pulm onary nodules. Findings are consistent with neoplastic/metastatic disease. Mild emphysema.
[2023-04-03 08:30] LABS: Estimated Glomerular Filt Rate > 60
== END 2023-04-03 06:38 | disposition home or self-care (01) ==
PROVIDERS: PCP Internal Medicine Gastroenterology; Visit Provider Internal Medicine Hematology & Oncology
DX: C34.92 Malignant neoplasm of unspecified part of left bronchus or lung (principal); J43.9 Emphysema, unspecified
CPT/HCPCS: 71260; Q9967

== ENCOUNTER 2023-06-19 06:32 | Outpatient (CLI) | payer MEDICARE, OTHER, SELFPAY ==
--- NOTE | ~2023-06-19 | CT_ITS ---
Clinical Indication: Non-small cell carcinoma of the left lung CT Scan of the Chest with Contrast: Technique: Contiguous sections were acquired throughout the chest after intravenous administration of 75 cc of Omnipaque 350. Dose reduction technique was used on this scan by utilizing automated exposu re control and iterative reconstruction technique. The dose-length product (DLP) was 168.18 mGy-cm. COMPARISON: 04/03/2023 Findings: There is no evidence of any significant mediastinal, hilar or axillary lymphadenopathy. There is no f illing defect in the pulmonary arterial tree to suggest pulmonary embolus. There is no evidence of ao rtic dissection or aneurysm. There is no evidence of pleural or pericardial effusion. 1.4 cm left upper lobe pulmonary nodule (axial image 46), essentially unchanged. Stable vague subcent imeter nodules peripherally in the left upper lobe (axial image 56, 58). Additional subcentimeter nod ules or inferiorly in the left upper lobe are also unchanged (axial image 70, 72, 75). Dominant left upper lobe mass measuring 5.3 x 3.7 cm is overall similar to prior exam, probably without significant interval change. Subcentimeter left lower lobe pulmonary nodules are unchanged. Right lower lobe pul monary nodule measuring 9 mm is unchanged (axial image 116). Additional subcentimeter right lower lob e pulmonary nodules also unchanged. Mild emphysema. Images through the upper abdomen reveal no abnormalities. Impression: Overall, no significant change from prior exam. Dominant left upper lobe mass inferiorly measures jorge roximately 5.3 x 3.7 cm in size. Multiple additional scattered subcentimeter pulmonary nodules bilate rally are unchanged, suggestive of metastatic disease. Reviewed, dictated and finalized at [facility]. Impression: Overall, no significant change from prior exam. Dominant left upper lobe mass i nferiorly measures approximately 5.3 x 3.7 cm in size. Multiple additional scat tered subcentimeter pulmonary nodules bilaterally are unchanged, suggestive of metastatic disease.
[2023-06-20 08:54] LABS: Estimated Glomerular Filt Rate 55
== END 2023-06-19 06:33 | disposition home or self-care (01) ==
PROVIDERS: PCP Internal Medicine Gastroenterology; Visit Provider Internal Medicine Hematology & Oncology
DX: C34.92 Malignant neoplasm of unspecified part of left bronchus or lung (principal)
CPT/HCPCS: 71260; Q9967

== ENCOUNTER 2023-09-25 06:32 | Outpatient (CLI) | payer MEDICARE, OTHER, SELFPAY ==
--- NOTE | ~2023-09-25 | CT_ITS ---
Clinical Indication: Lung cancer CT Scan of the Chest, Abdomen, and Pelvis with Contrast: Technique: Contiguous sections were acquired throughout the chest, abdomen, and pelvis after intraven ous administration of 100 cc of Omnipaque 350. Dose reduction technique was used on this scan by uti lizing automated exposure control and iterative reconstruction technique. The dose-length product (DL P) was 936.52 mGy-cm. COMPARISON: 06/19/2023, 12/27/2022 Findings: There is no evidence of any significant mediastinal, hilar or axillary lymphadenopathy. The mediastin al soft tissues appear normal. Small to small moderate left pleural effusion present, new from prior exam. No right pleural effusion . No pericardial effusion. Dominant lingular mass is increased in size from prior exam, now measuring approximately 5.5 cm in di ameter, abutting the left pleural surface, now extending to the left hilum. There are several subcent imeter satellite nodules of the dominant lesion which are similar to prior exam. 1.8 cm spiculated no dule in the medial left upper lobe abutting the mediastinum is mildly increased from prior exam (axia l image 44). Mild emphysema present. Stable 5 mm nodule in the superior segment right lower lobe. Sta ble 4 mm nodule in the right middle lobe. Stable pleural-based nodule right lower lobe (axial image 9 4). Stable additional subcentimeter right middle lobe pulmonary nodules. Stable 1 cm right lower lobe pulmonary nodule (axial image 112). Several subcentimeter left basilar pulmonary nodules or unchange d. Probable diffuse hepatic steatosis with heterogeneous hepatic parenchyma, but no distinct hepatic mas s identified. The spleen, pancreas, gallbladder, adrenals and kidneys are within normal limits. There are atherosclerotic calcifications of the aorta. No lymphadenopathy. No bowel obstruction or bowel wall thickening. There is no evidence to suggest acute appendicitis. Urinary bladder is unremarkable. No pelvic mass seen. No ascites. Impression: Probable mild interval progression of disease. Dominant lingular mass is mildly increased in extent f rom prior exam. Additional 1.8 cm spiculated left upper lobe nodule is also mildly increased. Numerou s additional bilateral pulmonary nodules measuring up to maximum 1 cm in diameter are otherwise simil ar to prior exam. New small to small moderate left pleural effusion. Mild emphysema. No definite metastatic disease in the abdomen or pelvis. Probable diffuse hepatic steatosis. Reviewed, dictated and finalized at location M. Impression: Probable mild interval progression of disease. Dominant lingular mass is mildly increased in extent from prior exam. Additional 1.8 cm spiculated left upper l obe nodule is also mildly increased. Numerous additional bilateral pulmonary no dules measuring up to maximum 1 cm in diameter are otherwise similar to prior e xam. New small to small moderate left pleural effusion. Mild emphysema. No definite metastatic disease in the abdomen or pelvis. Probable diffuse hepatic steatosis.
[2023-09-25 07:11] LABS: Estimated Glomerular Filt Rate > 60
== END 2023-09-25 06:33 | disposition home or self-care (01) ==
PROVIDERS: PCP Internal Medicine Gastroenterology; Visit Provider Internal Medicine Hematology & Oncology
DX: C34.92 Malignant neoplasm of unspecified part of left bronchus or lung (principal); J90 Pleural effusion, not elsewhere classified; J43.9 Emphysema, unspecified
CPT/HCPCS: 71260; 74177; Q9967

== ENCOUNTER 2023-10-12 07:32 | Outpatient (CLI) | payer MEDICARE, OTHER, SELFPAY ==
--- NOTE | ~2023-10-12 | PE_ITS ---
EXAMINATION: PET skull to mid thigh DATE: 10/12/2023 10:31 INDICATION: Lung cancer TECHNIQUE: Blood glucose level was 107 mg/dL. 10.836 mCi of 18-fluorodeoxyglucose (18-FDG) was admini stered i.v. Low dose computed tomography (CT) images were acquired from the base of the brain to the proximal thighs for attenuation correction and anatomic localization. Positron emission tomography (P ET) images were acquired in the same distribution beginning 57 minutes after injection. Images includ ing fused PET/CT images were reconstructed in axial, coronal, and sagittal planes. Automated exposure control technique was employed. The dose-length product was 781.35mGy-cm. COMPARISON: None FINDINGS: Head/neck: There is symmetric increased activity in the oral cavity, palatine tonsils and ocular muscles without CT correlate, likely physiologic. No pathologically enlarged cervical lymphadenopathy or suspicious foci of increased FDG uptake in the visualized head or neck. Chest: Mild emphysema. 1.8 x 1.6 cm FDG avid spiculated left upper lobe nodule with maximal SUV of 5.2 with spiculations abutting the mediastinum. There is a larger 5.3 x 4.8 cm spiculated mass at the lingula with maximal SUV of 12.5. There is a projection of the region of increased FDG activity which extends centrally towards the right hilum, it is unclear whether this represents a direct extension of the m ass were potentially a metastatic left hilar lymph node. There is consolidation extending peripherall y from the mass in the posterior lingula within which are couple small regions of mildly increased up take relative to the adjacent collapsed lung which could represent either additional metastatic lesio ns or postobstructive pneumonia. There are several additional pulmonary nodules with smooth margins m ay be pleural-based or subpleural in the bilateral lower lungs which are without increased FDG uptake or more likely sequela of old granulomatous disease. There are also a few unchanged groundglass nodu les the largest in the right upper lobe and in the left lower lobe which are all without appreciable increased FDG uptake. Small left pleural effusion. Small calcified nodules in the collapsed portion o f the lingula along with calcified right hilar lymph nodes consistent with old granulomatous disease. Heart size is normal. Small pericardial effusion. Right internal jugular central venous port cathete r with distal tip at the caudal superior vena cava. Abdomen/pelvis/proximal thighs: Physiologic renal accumulation and excretion of FDG activity in the kidneys, bladder and along portio ns of ureters. Normal degree and heterogenous pattern of increased uptake throughout the liver withou t radiologic correlate or dominant FDG avid lesion. Cholecystectomy clips at the gallbladder fossa. T he pancreas, spleen and bilateral adrenal glands are normal. Minimal to mild uptake scattered through out the bowels without radiologic correlate, also likely physiologic. No other abnormal foci of incre ased FDG uptake or pathologically enlarged lymphadenopathy in the abdomen, pelvis or proximal thighs. Musculoskeletal: Mild increased FDG uptake associated with severe arthrosis at the right C4-C5 facet joint. Mild uptak e overlying the right greater trochanter consistent with trochanteric bursitis. No suspicious lytic, blastic or other PSMA avid bone lesions. IMPRESSION: 1. Moderate increased uptake associated with a 5.3 cm mass at the lingula with extension of small reg ion of increased uptake towards the left hilum which could represent either direct extension of the m ass or potentially metastatic left hilar lymph nodes. 2. 1.8 cm spiculated left upper lobe nodule consistent with primary lung cancer in either metastatic disease or second synchronous primary cancer. 3. Partial collapse of the posterior lingula peripheral to the mass with a couple small regions of re latively increase
[2023-10-12 07:57] LABS: Glucose Point of Care 107 mg/dl (65-105)
== END 2023-10-12 07:33 | disposition home or self-care (01) ==
PROVIDERS: PCP Internal Medicine Gastroenterology; Visit Provider Internal Medicine Hematology & Oncology
DX: C34.12 Malignant neoplasm of upper lobe, left bronchus or lung (principal)
CPT/HCPCS: 78815; A9552

== ENCOUNTER 2023-10-14 10:51 | Inpatient (IN) | payer MEDICARE, OTHER, SELFPAY ==
[2023-10-14] VITALS (24 sets, daily range): BP systolic 100–139; BP diastolic 47–105; PULSE 86–141; RESP 18–33; TEMP 36.1–36.8; O2SAT 83–100; BMI 24.1
--- NOTE | ~2023-10-14 | XR_ITS ---
EXAMINATION: XR chest 1V portable DATE: 10/18/2023 08:39 INDICATION: Congestive heart failure. TECHNIQUE: A single frontal view of the chest was obtained. COMPARISON: Chest 2 views 10/14/2023, chest CT 10/14/2023 FINDINGS: The patient is rotated to her left. There are lucencies in the lungs, consistent with emphy sema. There is mild scarring at the lung apices. A nodule and a mass are noted in the left upper lobe . There are airspace opacities in the lower lung zones. There are small pleural effusions. Jessy B-l darrin are noted, consistent with mild pulmonary edema. No pneumothorax. The heart size is normal. Ther e is a right internal jugular port with tip in superior vena cava. IMPRESSION: 1. Mild pulmonary edema with small pleural effusions. 2. Airspace opacities in the lower lung zones with worsening on the left, consistent with atelectasis or less likely pneumonia. 3. Nodule and mass in left lung, consistent with metastatic disease. 4. Emphysema. Reviewed, dictated and finalized at location A. IMPRESSION: 1. Mild pulmonary edema with small pleural effusions. 2. Airspace opacities in the lower lung zones with worsening on the left, consi stent with atelectasis or less likely pneumonia. 3. Nodule and mass in left lung, consistent with metastatic disease. 4. Emphysema.
--- NOTE | ~2023-10-14 | XR_ITS ---
XR chest 2V 10/14/2023 13:26 Indication: Dyspnea. Non-small cell lung cancer. Procedure: AP and lateral views of the chest Comparison: Comparison to multiple prior studies sequentially, with oldest reviewed study dated 04/2019. Findings: Portacatheter tip in the SVC. Cardiomegaly with interstitial edema. There is a mass in the left mid thorax, consistent with known malignancy. No pneumothorax. Impression: 1: Cardiomegaly with interstitial edema. 2: Mass left mid thorax, consistent with known malignancy. Reviewed, dictated and finalized at location B. Impression: 1: Cardiomegaly with interstitial edema. 2: Mass left mid thorax, consistent with known malignancy.
--- NOTE | ~2023-10-14 | CT_ITS ---
EXAMINATION: CTA chest PE protocol DATE: 10/14/2023 13:32 CDT INDICATION: History of atrial fibrillation. Non-small cell lung cancer. TECHNIQUE: Computed tomographic angiography (CTA) of the chest was performed with 100 mL Omnipaque-35 0 intravenous contrast. The dose-length product was 295.33 mGy-cm. Maximum intensity projection 3D-re constructions of the aorta and other arteries were constructed by the technologist on a separate work station. COMPARISON: CT dated 09/25/2023. FINDINGS: Study technically adequate without evidence for pulmonary embolism. Moderate pleural effusi ons. Cardiomegaly. There is a left upper lobe mass which extends to the left hilum, consistent with k nown malignancy. There are groundglass opacities in the upper lobes with interlobular septal thickeni ng, suspicious for edema versus pneumonia. There is a 9 mm right lower lobe nodule, stable there are additional scattered nodules in both lungs, consistent with metastatic disease.. IMPRESSION: 1. No evidence for pulmonary embolism. 2: Moderate pleural effusions. 3: Left upper lobe mass, consistent with known malignancy. Multiple additional scattered nodules are present in both lungs, consistent with metastatic disease. 4: Scattered groundglass opacities with interlobular septal thickening which may reflect edema or pne umonia. Reviewed, dictated and finalized at location B. IMPRESSION: 1. No evidence for pulmonary embolism. 2: Moderate pleural effusions. 3: Left upper lobe mass, consistent with known malignancy. Multiple additional scattered nodules are present in both lungs, consistent with metastatic diseas e. 4: Scattered groundglass opacities with interlobular septal thickening which ma y reflect edema or pneumonia.
--- NOTE | ~2023-10-14 | US_ITS ---
US venous doppler [facility] DATE: 10/15/2023 07:51 INDICATION: Bilateral lower extremity edema TECHNIQUE: Real-time and color flow imaging and Doppler analysis of the veins of both lower extremiti es COMPARISON: None FINDINGS: The greater saphenous veins are patent. There is spontaneous and phasic flow and normal aug mentation and color flow signal and normal compression of the deep veins of both lower extremities. IMPRESSION: No evidence of deep venous thrombosis in the lower extremities Reviewed, dictated and finalized at Location A. Reviewed, dictated and finalized at location J.
--- NOTE | 2023-10-14 11:27 | ECG_ITS ---
Test Date: 2023-10-14 11:28:51 Measurements Intervals [place] Rate: 142 P: 0 MD: 0 QRS: 101 QRSD: 129 T: 58 QT: 315 QTc: 484 Interpretive Statements ATRIAL FIBRILLATION WITH RAPID VENTRICULAR RESPONSE RIGHT AXIS DEVIATION LEFT BUNDLE BRANCH BLOCK BASELINE ARTIFACT- I, III, AVR, AVL, AVF, V1 ABNORMAL ECG No previous ECG available for comparison Electronically Signed On 10-14-2023 19:41:49 CDT by Jesus Garcia D.O.
[2023-10-14 11:56] LABS: Basophils Percent Auto 0.5 % (0.2-1.2); Eosinophils Percent Auto 0.3 % (0-4.4); Hematocrit 47.6 % (37.0-47.0); Immature Granulocyte Absolute 0.02 K/mm3 (0.00-0.031); Immature Granulocyte Percent A 0.3 % (0-0.5); Lymphocytes Absolute Auto 0.77 K/mm3 (0.9-3.2); Lymphocytes Percent Auto 12.6 % (18.3-44.2); Mean Corpuscular HGB Conc 33.6 g/dl (32-36); Mean Corpuscular Hemoglobin 34.8 pg (26-34); Mean Corpuscular Volume 103.5 fl (80-100); Mean Platelet Volume 10.2 fl (7.4-10.4); Monocytes Absolute Auto 0.4 K/mm3 (0.1-0.6); Neutrophils Absolute Auto 4.9 K/mm3 (1.3-6.7); Neutrophils Percent Auto 80.3 % (45.5-73.1); Platelet Count Result 186 k/mm3 (150-375); Red Cell Distribution Width 14.7 % (11.5-14.5); White Blood Count 6.1 K/mm3 (4.5-10.0)
[2023-10-14] MEDS: dilTIAZem HCl INJ 25 MG/5 ML VIAL 18 MG IV PUSH (12:02)
[2023-10-14] MEDS: LACTATED RINGERS 1,000 ML 999 ML IV CONT (12:03)
--- NOTE | 2023-10-14 12:07 | ECG_ITS ---
Test Date: 2023-10-14 14:46:12 Measurements Intervals [place] Rate: 102 P: 0 [place]: 0 QRS: 112 QRSD: 126 T: 76 QT: 381 QTc: 497 Interpretive Statements SINUS RHYTHM CHANGES TO ATRIAL TACHYCARDIA THEN CHANGES TO SINUS RHYTHM RIGHT AXIS DEVIATION LEFT BUNDLE BRANCH BLOCK BASELINE ARTIFACT- I, II, III, AVR, AVL, AVF, V1 ABNORMAL ECG Compared to ECG 10/14/2023 11:28:51 CHANGES IN RHYTHM NOW PRESENT Electronically Signed On 10-14-2023 19:34:20 CDT by Jesus Garcia D.O.
[2023-10-14 12:13] LABS: Alanine Aminotransferase 25 U/L (6-35); Albumin Level 3.9 g/dL (3.5-5.1); Alkaline Phosphatase 89 U/L (38-126); Anion Gap 6 mmol/L (4-12); Aspartate Amino Transferase 610 U/L (14-36); Blood Urea Nitrogen 19 mg/dL (7-17); Calcium 8.7 mg/dL (8.4-10.2); Carbon Dioxide 29 mmol/L (22-30); Chloride 93 mmol/L (98-107); Estimated CRCL calculation 77 ml/min; Estimated Glomerular Filt Rate > 60; Glucose 142 mg/dL (65-110); Potassium 4.5 mmol/L (3.4-5.0); Sodium 128 mmol/L (137-145)
[2023-10-14] MEDS: ENOXAPARIN 80 MG/0.8 ML SYRINGE 70 MG SUB-Q (12:48)
[2023-10-14] MEDS: dilTIAZem HCL 30 MG TABLET PO (13:33)
[2023-10-14] MEDS: dilTIAZem HCl INJ 25 MG/5 ML VIAL IV PUSH (14:01)
[2023-10-14] MEDS: dilTIAZem 100 MG/100 ML 100 MG/100 ML BAG IV CONT (14:04)
[2023-10-14 14:11] LABS: NT Pro B Type Natriuretic Pept 16400 pg/mL (19.9-100); Troponin I 0.013 ng/mL (0.000-0.034)
--- NOTE | 2023-10-14 14:30 | ED.SOB ---
HPI - SOB/Dyspnea General Chief Complaint: Shortness of Breath/Dyspnea Stated Complaint: trouble breathing, b/l LE edema Time Seen by Provider: 10/14/23 11:43 History of Present Illness HPI Narrative: This is a 67-year-old female with a past medical history including stage IV non-small cell lung cancer. Today she presents to the emergency department with a chief complaint of dyspnea ongoing for last 1 month radiation associated with worsening swelling in her legs and subjective shortness of breath has worsened over last few days. She denies any chest pain or discomfort sensation is as well as denies any nauseousness, vomiting, headache, vision changes. She has recently underwent PET scans and is monitoring CT scans of her chest which showed small progression of her lung cancer despite chemotherapy and radiation therapy. Patient states that her shortness of breath is worse with exertion but not worse with lying flat or positional changes otherwise. She has a history of DVT or PE or atrial fibrillation in her past but is in atrial fibrillation with RVR initial triage vitals. Denies any other recent illnesses and states that she feels like she is having a cold. Related Data Home Medications Medication Instructions Recorded Confirmed acetaminophen 325 mg tablet 325 mg PO DAILY PRN Pain 11/15/19 09/12/22 (Tylenol) aspirin 81 mg tablet,delayed 81 mg PO DAILY 11/15/19 09/12/22 release ibuprofen 200 mg tablet (Advil) 200 mg PO Q6H PRN Pain 11/15/19 09/12/22 lisinopril 5 mg tablet 5 mg PO DAILY 11/15/19 09/12/22 fluticasone propionate 50 1 spray intranasal DAILY 01/13/20 09/12/22 mcg/actuation nasal spray,suspension ascorbic acid (vitamin C) 1,000 mg 1 g PO DAILY 04/16/20 09/12/22 tablet (Vitamin C) alprazolam 0.25 mg tablet (Xanax) 0.25 mg PO BID 04/30/20 09/12/22 gabapentin 300 mg tablet 300 mg PO HS 06/06/22 09/12/22 Allergies Allergy/AdvReac Type Severity Reaction Status Date / Time pentazocine [From Anjali] Allergy Irritable Verified 10/14/23 11:19 Review of Systems Review of Systems: As reviewed above in the HPI [facility] Past Medical History Medical History Erythrocytosis HTN (hypertension) Lung cancer Family History Family History Grandparent Lung cancer Mother Breast cancer Small bowel cancer FH: kidney cancer Skin cancer Mother No problems noted. Father Skin cancer Social History Social History Smoking packs per day: 2 Smoking cigarettes per day: 40.0 Years smoked: 40 Smoking pack-years: 80.00 Smoking status: Current every day smoker Tobacco type: cigarettes Second hand tobacco smoke exposure: No Additional smoking assessment comments: cutting back since diagnosis Substance use: never Substance use type: does not use Living arrangements: with family Gender identity (if verbalized by the patient): Female Spiritual care concerns: No Exam Narrative: GENERAL: [Well-appearing, well-nourished, and in no acute distress.] HEAD: [Normocephalic, atraumatic.] EYES: [PERRLA and EOMI.] ENT: Nares clear, no rhinorrhea or epistaxis. Mucous membranes moist. NECK: Supple. CHEST: [Clear to auscultation. No respiratory distress.] HEART: Irregular rate and rhythm, rapid ventricular response. No murmur heard. [Normal peripheral pulses.] ABDOMEN: [Soft, nondistended], [nontender], [No rigidity or guarding] EXTREMITIES: Normal range of motion. 2+ peripheral edema, no asymmetry in the legs SKIN: Warm, dry, no rash. NEURO: [No focal deficits]. Alert and oriented [x3.] PSYCH: [Normal mood and affect.] Course Vital Signs Vital signs: Vital Signs Temperature 36.8 C 10/14/23 11:16 Pulse Rate 110 H 10/14/23 11:16 Respiratory Rate 20 10/14/23 11:16 Blood Pressure 130
[2023-10-14] MEDS: FUROSEMIDE INJ 40 MG/4 ML VIAL IV PUSH (14:32)
--- NOTE | 2023-10-14 15:14 | PM.IMHP ---
H&P: HPI History of Present Illness Date/Time: 10/14/23 16:00 Chief Complaint: Shortness of breath. Narrative: This is a pleasant 67-year-old female smoker with non-small cell carcinoma arising status post chemoradiation and immunotherapy, hypertension, peripheral neuropathy, and anxiety who presented to the emergency department for evaluation of shortness of breath. The patient provides the following history. About a month ago she had a chest cold and the cough never went away and it is still occasionally productive of clear sputum. She has felt more short of breath than normal since that infection and that seems to have gotten worse over the last several days. Her legs have been swelling and she feels short of breath when lying supine. She denies fever, chills, sweats, chest pain, pleuritic pain, sensations of racing heart, palpitations, nausea, vomiting, syncope, near syncope, and calf pain. She has no known history of cardiac disease, cardiac dysrhythmia, or venous thromboembolism. In the ED: She was in rapid atrial fibrillation with a rate of 135 on arrival which is a new diagnosis for her. She has been afebrile and blood pressures are stable. Labs were significant for WBC count of 6.1, hemoglobin 16.0, platelet 186, sodium 128, chloride 93, BUN 19, creatinine 0.60, AST 610, proBNP 66188, troponin 0.013. Chest CTA was negative for PE but showed moderate pleural effusions, findings of edema or pneumonia, and left upper lobe mass this is with no malignancy with multiple metastases to both lungs. She was started on a diltiazem drip with improvement in her rates and was given 1 mg/kg enoxaparin and she is being admitted in this setting for further treatment and evaluation. Review of Systems Review of Systems: 12 systems were reviewed and are negative except for as per HPI. [facility] Past Medical History Medical History (Updated 10/14/23 @ 21:48 by Rossi Will PA-C) Anxiety Hypertension Non-small cell lung cancer (02/2020) Arising in the left lung with multiple pulmonary lesions (no extrapulmonary disease) status post chemo radiation and immunotherapy. Tobacco dependence Surgical History Surgical History (Updated 10/14/23 @ 15:25 by Rossi Will PA-C) History of cholecystectomy (1998) History of hysterectomy (1997) History of laparoscopy History of tonsillectomy (1965) Family History Family History Grandparent Lung cancer Mother Breast cancer Small bowel cancer FH: kidney cancer Skin cancer Mother No problems noted. Father Skin cancer Social History Social History (Updated 10/14/23 @ 21:41 by Rossi Will PA-C) Social History: Surrogate medical decision maker: Elliott Wallis, spouse Code status: Do not resuscitate. Smoking packs per day: 1 Smoking cigarettes per day: 20.0 Years smoked: 40 Smoking pack-years: 40.00 Smoking status: Current every day smoker Tobacco type: cigarettes Second hand tobacco smoke exposure: No Additional smoking assessment comments: cutting back since diagnosis Alcohol intake: never Substance use: never Substance use type: does not use Do You Feel Safe in your Home?: Yes Lack of Transportation: No Lack of Food: Never True Current Housing: I Have Housing Concerned About Future Housing: No Difficulty Paying Gas/Electric Bills: No Difficulty Paying for Meds: No Currently Unemployed: No Education: High School Diploma/GED Difficulty w/ Childcare or Family Care: No Living arrangements: with family Spiritual care concerns: No Meds Home Medications and Allergies Home Medications Medication Instructions Recorded Confirmed Type aspirin 81 mg tablet,delayed 81 mg PO DAILY 11/15/19 10/14/23 History release ibuprofen 200 mg tablet (Advil) 200 mg PO Q6H PRN Pain 11/15/19 10/14/23 History lisinopril 5 mg tablet 5 mg PO DAILY 11/15/19 10/14/23 History fl
[2023-10-14 15:25] LABS: Troponin I 0.016 ng/mL (0.000-0.034)
--- NOTE | 2023-10-14 15:49 | ADMGEN ---
This patient, Yessenia Wallis, was admitted to IMU Room 202-. Patient/family oriented to hospital policies and general routines including ID bracelet, bed and alarms, visiting hours, pain management, procedures, bathroom and other care routines, personal items, smoking policy, room service/diet, and visiting hours. Information on how to activate the Rapid Response Team has been discussed. Patient/Family are encouraged to report perceived risks to care and to ask questions if they do not understand what they are told or what they should do.
--- NOTE | 2023-10-14 18:56 | ECG_ITS ---
Test Date: 2023-10-14 19:36:17 Measurements Intervals [place] Rate: 127 P: -31 [place]: 217 QRS: 105 QRSD: 126 T: 23 QT: 342 QTc: 498 Interpretive Statements ATRIAL TACHYCARDIA WITH RAPID VENTRICULAR RESPONSE RIGHT AXIS DEVIATION LEFT BUNDLE BRANCH BLOCK BASELINE ARTIFACT- I, II, III, AVR, AVL, V1 ABNORMAL ECG Compared to ECG 10/14/2023 14:46:12 ATRIAL TACHYCARDIA NOW PRESENT Electronically Signed On 10-15-2023 07:59:53 CDT by Jesus Garcia D.O.
[2023-10-14] MEDS: NICOTINE (*PBKC) 21 MG PATCH 1 PATCH TRANSDERM (20:03)
[2023-10-14] MEDS: CENTRAL LINE FLUSH 10 ML IV PUSH (20:09)
[2023-10-14 20:27] LABS: Anion Gap 5 mmol/L (4-12); Blood Urea Nitrogen 19 mg/dL (7-17); Calcium 8.6 mg/dL (8.4-10.2); Carbon Dioxide 35 mmol/L (22-30); Chloride 90 mmol/L (98-107); Estimated CRCL calculation 67 ml/min; Estimated Glomerular Filt Rate > 60; Glucose 104 mg/dL (65-110); Magnesium 1.6 mg/dL (1.6-2.3); Sodium 130 mmol/L (137-145)
[2023-10-14] MEDS: diphenhydrAMINE HCl CAP 25 MG CAPSULE PO (20:47)
[2023-10-14] MEDS: GABAPENTIN 300 MG CAPSULE PO (20:47)
[2023-10-14] MEDS: IBUPROFEN 200 MG TABLET PO (20:47)
[2023-10-14] MEDS: ALPRAZolam (*CRX) 0.25 MG TABLET PO (21:51)
[2023-10-15] VITALS (24 sets, daily range): BP systolic 80–108; BP diastolic 56–78; PULSE 74–135; RESP 16–20; TEMP 36.1–36.8; O2SAT 88–99
[2023-10-15] MEDS: CENTRAL LINE FLUSH 10 ML IV PUSH ×2 (04:41→20:43)
[2023-10-15 04:45] LABS: Hemoglobin 15.4 g/dL (12.0-15.0); Mean Corpuscular HGB Conc 34.2 g/dl (32-36); Mean Corpuscular Hemoglobin 35.1 pg (26-34); Mean Corpuscular Volume 102.5 fl (80-100); Mean Platelet Volume 10.4 fl (7.4-10.4); Platelet Count Result 163 k/mm3 (150-375); Red Blood Count 4.39 M/mm3 (4.2-5.4); Red Cell Distribution Width 14.7 % (11.5-14.5); White Blood Count 4.9 K/mm3 (4.5-10.0)
[2023-10-15 05:09] LABS: Alanine Aminotransferase 23 U/L (6-35); Albumin Level 3.3 g/dL (3.5-5.1); Alkaline Phosphatase 83 U/L (38-126); Anion Gap 4 mmol/L (4-12); Aspartate Amino Transferase 545 U/L (14-36); Bilirubin,Total 0.8 mg/dL (0.2-1.3); Blood Urea Nitrogen 16 mg/dL (7-17); Calcium 8.5 mg/dL (8.4-10.2); Carbon Dioxide 33 mmol/L (22-30); Chloride 91 mmol/L (98-107); Estimated CRCL calculation 67 ml/min; Estimated Glomerular Filt Rate > 60; Glucose 84 mg/dL (65-110); Magnesium 1.7 mg/dL (1.6-2.3); Potassium 3.8 mmol/L (3.4-5.0); Sodium 128 mmol/L (137-145)
[2023-10-15] MEDS: NICOTINE (*PBKC) 21 MG PATCH 1 PATCH TRANSDERM (08:23)
[2023-10-15] MEDS: FUROSEMIDE INJ 40 MG/4 ML VIAL IV PUSH ×2 (08:23→17:13)
[2023-10-15] MEDS: ALPRAZolam (*CRX) 0.25 MG TABLET PO ×2 (08:25→22:03)
[2023-10-15] MEDS: ASCORBIC ACID 500 MG TABLET 1000 MG PO (08:25)
[2023-10-15] MEDS: dilTIAZem 100 MG/100 ML 100 MG/100 ML BAG IV CONT (08:25)
[2023-10-15] MEDS: lisinopriL 5 MG TABLET PO (08:25)
[2023-10-15] MEDS: FLUTICASONE PROPIONATE 0.05% NA SPR 16 GM BTL (*BKC) 1 SPRAY NASAL (08:25)
[2023-10-15] MEDS: ASPIRIN 81 MG ENTERIC TABLET PO (08:26)
--- NOTE | 2023-10-15 10:07 | PM.IMPN ---
Progress Note: A&P Assessment and Plan (1) Atrial fibrillation with rapid ventricular response: Code(s): I48.91 - Unspecified atrial fibrillation Status: Acute (2) Congenital heart failure: Code(s): I50.9 - Heart failure, unspecified Status: Acute (3) Hyponatremia: Code(s): E87.1 - Hypo-osmolality and hyponatremia Status: Acute (4) Elevated aspartate aminotransferase level: Code(s): R74.01 - Elevation of levels of liver transaminase levels Status: Acute (5) Non-small cell lung cancer: Onset Date: 02/2020 Code(s): C34.90 - Malignant neoplasm of unspecified part of unspecified bronchus or lung Status: Acute (6) Hypertension: Code(s): I10 - Essential (primary) hypertension Status: Acute (7) Anxiety: Code(s): F41.9 - Anxiety disorder, unspecified Status: Acute (8) Tobacco dependence: Code(s): F17.200 - Nicotine dependence, unspecified, uncomplicated Status: Acute Plan The patient presented to the emergency department for evaluation of increasing shortness of breath, orthopnea, and lower extremity edema AFib RVR She was in rapid atrial fibrillation on arrival to the ED and has been started on a diltiazem drip. At times it appears that she reverts to a sinus rhythm before returning back into atrial fibrillation Chest CTA was negative for pulmonary embolism. Director Pharmacology recommended continuing the Cardizem drip overnight, no changed to metoprolol 25 mg b.i.d. Pending echocardiogram in the morning. Check TSH Director Pharmacology considers cardioversion congestive heart failure Patient has orthopnea, lower extremity edema, pleural effusions, and pulmonary edema with a markedly elevated proBNP. Continue Lasix 40 mg b.i.d. IV push Follow-up input output Monitor renal function, and electrolytes. Hyponatremia Possible hypervolemic hyponatremia Sodium low and stable Transaminitis AST is high however has been running high for quite some time and she is being followed by liver specialist at [facility] thus no further workup is being pursued at this time. She has been cutting back on smoking and smoking cessation is imperative and was discussed. Nicotine patch ordered for patient request. Her home medications will be reviewed and resumed as appropriate. Findings and treatment plan were discussed with the patient. Questions were solicited and answered to satisfaction. The patient's medical management will be taken over by the hospitalist team in a.m. Subjective Date/time seen: 10/15/23 10:07 Interval history: I saw examined the patient in presents of patient's son with patient's permission. Patient still has palpitation, but the shortness breath is improving. Patient has a cough without phlegm. And patient is afebrile, blood pressure stable. Patient denies lightheadedness and chest pain Exam Narrative: GENERAL: Pleasant, in no acute distress. Well-nourished. - EYES: EOMI. Anicteric. - HENT: Moist mucous membranes. - LUNGS: Coarse breath sound bilateral base, - CARDIOVASCULAR: Irregular irregular rhythm, tachycardia, No murmur. No JVD. - ABDOMEN: Soft, non-tender and non-distended. No palpable masses. - EXTREMITIES: No edema. Peripheral pulses 2+. Non-tender. - NEUROLOGIC: No focal neurological deficits. CN II-XII grossly intact. - PSYCHIATRIC: Awake, Alert and oriented x 3. Appropriate mood and affect. - SKIN: No rashes or lesions. Warm. - LYMPH: No cervical lymphadenopathy. Objective Data Vital Signs Vital Signs: Vital Signs - 24 hr 10/14/23 11:16 10/14/23 11:48 10/14/23 12:51 Temperature 98.2 F Pulse Rate 110 H 140 H Respiratory Rate 20 Blood Pressure 130/95 H Pulse Oximetry 96 92 Oxygen Delivery Room Air Room Air Oxygen Flow Rate Fraction of Inspired Oxygen 10/14/23 11:31 10/14/23 11:46 10/14/23 12:03 Temperature Pulse Rate 141 H 141 H 97 Respiratory Rate 24 H 29 H 23 H Bl
--- NOTE | 2023-10-15 13:16 | PM.CNCAR ---
Assessment and Plan Assessment and plan (1) Atrial fibrillation with rapid ventricular response: Code(s): I48.91 - Unspecified atrial fibrillation Status: Acute Plan Acute on chronic congestive heart failure AFib/atrial flutter with RVR Smoker History of lung cancer with chemo radiotherapy 2021 in remission Hypertension Plan Lasix 40 mg IV b.i.d. Change diltiazem to metoprolol 25 mg q.i.d. Consider cardioversion if the patient is not optimally controlled, ANGELA guided Transthoracic echocardiogram Continue anticoagulation with Lovenox and plan shift to oral anticoagulation Follow-up kidney function electrolytes History of Present Illness History of Present Illness Consult date/time: 10/15/23 13:16 Reason For Visit: Afib RVR Narrative: 67-year-old female patient presented to the hospital with progressive shortness of breath. Shortness of breath was moderate to severe present with mild activity. There was no shortness of breath at rest. She also noted bilateral lower extremity swelling for last 1 week. She has been having symptoms of upper respiratory tract infection for 1 month associated with dry cough. She was admitted to the hospital with an with CHF started on Lasix with improvement in her symptoms. She also mentions he had midsternal chest pain radiating burning in character moderate in severity happened 2 times in the last month. Review of Systems Review of Systems: All systems reviewed & are unremarkable except as noted in HPI and below PMFSH Past Medical History Medical History (Updated 10/14/23 @ 21:48 by Rossi Will PA-C) Anxiety Hypertension Non-small cell lung cancer (02/2020) Arising in the left lung with multiple pulmonary lesions (no extrapulmonary disease) status post chemo radiation and immunotherapy. Tobacco dependence Surgical History Surgical History (Updated 10/14/23 @ 15:25 by Rossi Will PA-C) History of cholecystectomy (1998) History of hysterectomy (1997) History of laparoscopy History of tonsillectomy (1965) Family History Family History Grandparent Lung cancer Mother Breast cancer Small bowel cancer FH: kidney cancer Skin cancer Mother No problems noted. Father Skin cancer Social History Social History (Updated 10/14/23 @ 21:41 by Rossi Will PA-C) Social History: Surrogate medical decision maker: Elliott Wallis, spouse Code status: Do not resuscitate. Smoking packs per day: 1 Smoking cigarettes per day: 20.0 Years smoked: 40 Smoking pack-years: 40.00 Smoking status: Current every day smoker Tobacco type: cigarettes Second hand tobacco smoke exposure: No Additional smoking assessment comments: cutting back since diagnosis Alcohol intake: never Substance use: never Substance use type: does not use Do You Feel Safe in your Home?: Yes Lack of Transportation: No Lack of Food: Never True Current Housing: I Have Housing Concerned About Future Housing: No Difficulty Paying Gas/Electric Bills: No Difficulty Paying for Meds: No Currently Unemployed: No Education: High School Diploma/GED Difficulty w/ Childcare or Family Care: No Living arrangements: with family Spiritual care concerns: No Meds Home Medications and Allergies Home Medications Medication Instructions Recorded Confirmed Type aspirin 81 mg tablet,delayed 81 mg PO DAILY 11/15/19 10/14/23 History release ibuprofen 200 mg tablet (Advil) 200 mg PO Q6H PRN Pain 11/15/19 10/14/23 History lisinopril 5 mg tablet 5 mg PO DAILY 11/15/19 10/14/23 History fluticasone propionate 50 1 spray intranasal DAILY 01/13/20 10/14/23 History mcg/actuation nasal spray,suspension ascorbic acid (vitamin C) 1,000 mg 1 g PO DAILY 04/16/20 10/14/23 History tablet (Vitamin C) alprazolam 0.25 mg tablet (Xanax) 0.25 mg PO BID PRN Anxiety 04/30/20 10/14/23 History
[2023-10-15] MEDS: METOPROLOL TARTRATE 25 MG TABLET PO ×2 (13:47→19:33)
[2023-10-15] MEDS: diphenhydrAMINE HCl CAP 25 MG CAPSULE PO (20:42)
[2023-10-15] MEDS: GABAPENTIN 300 MG CAPSULE PO (20:42)
[2023-10-16] VITALS (20 sets, daily range): BP systolic 86–101; BP diastolic 64–79; PULSE 65–129; RESP 16–28; TEMP 36.3–37.2; O2SAT 92–100
--- NOTE | 2023-10-16 | ECHO_ITS ---
Patient Info Name: Yessenia Wallis Age: 67 years : 1955 Gender: Female Ht: 68 in Wt: 155 lbs BSA: 1.84 m2 HR: 57 bpm BP: 101 / 77 mmHg Heart Rhythm: Sinus Rhythm Technical Quality: Good Exam Date: 10/16/2023 8:10 AM Exam Location: Echo Lab Patient Status: Inpatient Admit Date: 10/14/2023 Staff Ordering Physician: Rossi Will PA-C Nursing Unit Clerk: Lyndsay Ely RDCS Attending Provider: Pastor Lou MD Referring Physician: Nicolette GALLOWAY; Exam Type: CA echo doppler color flow Study Info Indications - new onset afib, and chf Complete two-dimensional, color flow and Doppler transthoracic echocardiogram is performed. Strain analysis performed. Summary 1. Complete two-dimensional, color flow and Doppler transthoracic echocardiogram is performed. 2. Mild left ventricular enlargement with severe global systolic hypokinesia and low ejection fraction. 3. Mild to moderate mitral regurgitation. 4. Trivial aortic regurgitation. 5. Right ventricular systolic dysfunction. 6. No significant pericardial effusion seen. Left Ventricle Left ventricular chamber dimension is mildly enlarged. Left ventricular systolic function is severely reduced, estimated at 20-25%. The left ventricular diastolic function is normal. Right Ventricle Right ventricular chamber dimension is mildly enlarged. Right ventricular systolic function is reduced. Left Atria Left atrial chamber dimension is moderately enlarged. Right Atria Right atrial chamber dimension is mildly enlarged. Aortic Valve The aortic valve is normal. There is trace aortic valve regurgitation. Pulmonic Valve The pulmonic valve is not well visualized. Mitral Valve The mitral valve has normal leaflets. There is mild to moderate mitral valve regurgitation. Tricuspid Valve The tricuspid valve leaflets are normal. There is mild tricuspid valve regurgitation. Pericardium/Pleural The pericardium appears normal. Aorta The aortic root size at the sinus of Valsalva is normal. Left Ventricular Outflow Tract Name Value Normal LVOT 2D LVOT Diameter 2.0 cm LVOT Doppler LVOT Peak Gradient 2 mmHg LVOT Mean Gradient 1 mmHg LVOT VTI 10 cm LVOT VTI/AV VTI Ratio 0.8 LVOT Stroke Volume 30 ml LVOT CO 2.4 l/min LVOT CI 1.3 l/min/m2 Pulmonic Valve Name Value Normal RVOT Doppler RVOT Peak Gradient 1 mmHg PV Doppler PV Peak Gradient 2 mmHg Mitral Valve Name Value Normal MV Doppler -----
[2023-10-16] MEDS: CENTRAL LINE FLUSH 10 ML IV PUSH ×2 (06:13→20:37)
[2023-10-16] MEDS: METOPROLOL TARTRATE 25 MG TABLET PO (06:13)
[2023-10-16] MEDS: ALPRAZolam (*CRX) 0.25 MG TABLET PO ×2 (09:18→22:01)
[2023-10-16] MEDS: NICOTINE (*PBKC) 21 MG PATCH 1 PATCH TRANSDERM (09:18)
[2023-10-16] MEDS: FUROSEMIDE INJ 40 MG/4 ML VIAL IV PUSH (09:21)
[2023-10-16] MEDS: ASCORBIC ACID 500 MG TABLET 1000 MG PO (09:21)
[2023-10-16] MEDS: ASPIRIN 81 MG ENTERIC TABLET PO (09:21)
[2023-10-16] MEDS: FLUTICASONE PROPIONATE 0.05% NA SPR 16 GM BTL (*BKC) 1 SPRAY NASAL (09:21)
--- NOTE | 2023-10-16 10:04 | PM.IMPN ---
Progress Note: A&P Assessment and Plan (1) Atrial fibrillation with rapid ventricular response: Code(s): I48.91 - Unspecified atrial fibrillation Status: Acute (2) Congenital heart failure: Code(s): I50.9 - Heart failure, unspecified Status: Acute (3) Hyponatremia: Code(s): E87.1 - Hypo-osmolality and hyponatremia Status: Acute (4) Elevated aspartate aminotransferase level: Code(s): R74.01 - Elevation of levels of liver transaminase levels Status: Acute (5) Non-small cell lung cancer: Onset Date: 02/2020 Code(s): C34.90 - Malignant neoplasm of unspecified part of unspecified bronchus or lung Status: Acute (6) Hypertension: Code(s): I10 - Essential (primary) hypertension Status: Acute (7) Anxiety: Code(s): F41.9 - Anxiety disorder, unspecified Status: Acute (8) Tobacco dependence: Code(s): F17.200 - Nicotine dependence, unspecified, uncomplicated Status: Acute Plan The patient presented to the emergency department for evaluation of increasing shortness of breath, orthopnea, and lower extremity edema AFib RVR She was in rapid atrial fibrillation on arrival to the ED and has been started on a diltiazem drip. At times it appears that she reverts to a sinus rhythm before returning back into atrial fibrillation Chest CTA was negative for pulmonary embolism. Circus Performer recommended continuing the Cardizem drip overnight, on metoprolol 25 mg b.i.d. per medical intern Pending echocardiogram in the morning. Check TSH Hold metoprolol and start sotalol medical intern congestive heart failure Patient has orthopnea, lower extremity edema, pleural effusions, and pulmonary edema with a markedly elevated proBNP. Continue Lasix 40 mg b.i.d. IV push Follow-up input output Monitor renal function, and electrolytes. Blood pressure is low Hold furosemide Hyponatremia Possible hypervolemic hyponatremia Sodium low and stable Transaminitis AST is high however has been running high for quite some time and she is being followed by liver specialist at [facility] thus no further workup is being pursued at this time. Hypotension Patient has history of hypertension No blood pressure is low Hold lisinopril, She has been cutting back on smoking and smoking cessation is imperative and was discussed. Nicotine patch ordered for patient request. Her home medications will be reviewed and resumed as appropriate. Findings and treatment plan were discussed with the patient. Questions were solicited and answered to satisfaction. The patient's medical management will be taken over by the hospitalist team in a.m. Subjective Date/time seen: 10/16/23 10:04 Interval history: I saw examined the patient . Patient has no new issue even overnight, patient has intermittent palpitation, denies shortness breath Patient has a cough without phlegm. And patient is afebrile, blood pressure stable. Patient denies lightheadedness and chest pain Exam Narrative: GENERAL: Pleasant, in no acute distress. Well-nourished. - EYES: EOMI. Anicteric. - HENT: Moist mucous membranes. - LUNGS: Coarse breath sound bilateral base, - CARDIOVASCULAR: Irregular irregular rhythm, tachycardia, No murmur. No JVD. - ABDOMEN: Soft, non-tender and non-distended. No palpable masses. - EXTREMITIES: No edema. Peripheral pulses 2+. Non-tender. - NEUROLOGIC: No focal neurological deficits. CN II-XII grossly intact. - PSYCHIATRIC: Awake, Alert and oriented x 3. Appropriate mood and affect. - SKIN: No rashes or lesions. Warm. - LYMPH: No cervical lymphadenopathy. Objective Data Vital Signs Vital Signs: Vital Signs - 24 hr 10/15/23 12:00 10/15/23 12:00 10/15/23 12:00 Temperature 98.2 F Pulse Rate 104 H 130 H Respiratory Rate 18 Blood Pressure 101/71 Pulse Oximetry 99 93 Oxygen Delivery Room Air Fraction of Inspired Oxygen 10/15/23 13:47 10/15/23
--- NOTE | 2023-10-16 10:15 | PC.NURSE ---
Updated Dr. Lou on vital signs, hold on AM Lisinopril and patient transfer to room 200.
--- NOTE | 2023-10-16 10:56 | PM.PNCARD ---
Progress Note: A&P Assessment and Plan (1) Atrial fibrillation with rapid ventricular response: Code(s): I48.91 - Unspecified atrial fibrillation Status: Acute Plan 67-year-old lady with paroxysmal atrial fibrillation almost certainly a consequence of her chest malignancy. Will transition her from metoprolol to sotalol today in hopes of more effectively maintaining sinus rhythm. She should be systemic anticoagulated as well I am going to start her on apixaban today. Obviously her prognosis is very poor with respect to her malignancy. Regan Peraza MD [facility] Subjective Date/time seen: Date of service: 10/16/23 10:56 Interval history: Follow-up visit in this 67-year-old lady with: Paroxysmal atrial fibrillation in the setting of metastatic non-small cell lung cancer. Despite metoprolol she still is going in and out of atrial fib although she is essentially asymptomatic of her arrhythmia. Exam Const: General: comfortable and no acute distress Other: Able to lie flat HENMT: Face/Nose/Sinus: Normal nares present and no epistaxis Mouth: Yes moist mucous membranes Eyes: Sclera: sclerae normal Pupils: Equal, round and reactive pupils present Neck: Neck: supple and no JVD Carotids: no bruits Resp: Auscultation: clear to auscultation bilaterally and lung sounds not diminished Other: No chest wall tenderness Cardio: Rate: regular rate Rhythm: regular rhythm Heart sounds: no gallops, no murmurs and no rubs GI: Auscultation: normal bowel sounds Skin: General skin exam: normal color, rashes and/or lesions noted and no erythema Other: Warm Neuro: Cranial nerves: Yes Equal, round and reactive pupils present Speech: normal speech Other: No obvious focal deficit or facial asymmetry Extrem: General: no edema Other: Normal capillary refills Intact distal pulses. Objective Data Vital Signs Vital Signs: Vital Signs - 24 hr 10/15/23 12:00 10/15/23 12:00 10/15/23 12:00 Temperature 36.8 C Pulse Rate 104 H 130 H Respiratory Rate 18 Blood Pressure 101/71 Pulse Oximetry 99 93 Oxygen Delivery Room Air Fraction of Inspired Oxygen 10/15/23 13:47 10/15/23 14:00 10/15/23 14:00 Temperature Pulse Rate 130 H 120 H 135 H Respiratory Rate Blood Pressure 105/78 Pulse Oximetry Oxygen Delivery Fraction of Inspired Oxygen 10/15/23 14:00 10/15/23 16:00 10/15/23 16:00 Temperature 36.1 C L Pulse Rate 106 H Respiratory Rate 18 Blood Pressure 105/78 82/68 L Pulse Oximetry 99 97 Oxygen Delivery Room Air Fraction of Inspired Oxygen 10/15/23 16:00 10/15/23 16:50 10/15/23 18:00 Temperature Pulse Rate 74 126 H Respiratory Rate Blood Pressure 105/70 Pulse Oximetry Oxygen Delivery Fraction of Inspired Oxygen 10/15/23 19:33 10/15/23 19:37 10/15/23 20:00 Temperature 36.5 C Pulse Rate 128 H 127 H 126 H Respiratory Rate 20 Blood Pressure 93/74 L Pulse Oximetry 94 Oxygen Delivery Fraction of Inspired Oxygen 10/15/23 20:00 10/15/23 22:00 10/15/23 23:54 Temperature Pulse Rate 126 H 104 H 106 H Respiratory Rate 20 Blood Pressure Pulse Oximetry 94 Oxygen Delivery Room Air Fraction of Inspired Oxygen 10/15/23 23:54 10/15/23 23:54 10/16/23 02:00 Temperature 36.6 C Pulse Rate 106 H 106 H 111 H Respiratory Rate 20 20 Blood Pressure 80/56 L Pulse Oximetry 94 98 Oxygen Delivery Room Air Fraction of Inspired Oxygen 10/16/23 04:00 10/16/23 04:00 10/16/23 04:00 Temperature 36.9 C Pulse Rate 114 H 76 76 Respiratory Rate 16 16 Blood Pressure 86/64 L Pulse Oximetry 98 98 Oxygen Delivery Room Air Fraction of Inspired Oxygen 10/16/23 06:09 10/16/23 06:13 10/16/23 06:00 Temperature Pulse Rate 122 H 122 H Respiratory Rate Blood Pressure 101/77 Pulse Oximetry Oxygen Delivery Fraction of Inspired Oxygen
[2023-10-16] MEDS: SOTALOL HCL 80 MG TABLET PO ×2 (11:38→20:37)
--- NOTE | 2023-10-16 20:32 | ECG_ITS ---
Test Date: 2023-10-16 20:53:48 Measurements Intervals [place] Rate: 68 P: 76 TX: 186 QRS: 104 QRSD: 136 T: 118 QT: 445 QTc: 476 Interpretive Statements SINUS RHYTHM WITH SINUS ARRHYTHMIA RIGHT AXIS DEVIATION POSSIBLE LEFT ATRIAL ENLARGEMENT LEFT BUNDLE BRANCH BLOCK BASELINE WANDER- AVR, AVL, AVF, V2 ABNORMAL ECG Compared to ECG 10/14/2023 19:36:17 SINUS RHYTHM NOW PRESENT Electronically Signed On 10-17-2023 06:16:38 CDT by Jesus Garcia D.O.
[2023-10-16] MEDS: diphenhydrAMINE HCl CAP 25 MG CAPSULE PO (20:37)
[2023-10-16] MEDS: GABAPENTIN 300 MG CAPSULE PO (20:37)
[2023-10-16] MEDS: APIXABAN 5 MG TABLET PO (20:37)
[2023-10-17] VITALS (14 sets, daily range): BP systolic 94–115; BP diastolic 63–71; PULSE 56–81; RESP 14–20; TEMP 36.4–37; O2SAT 83–98
[2023-10-17] MEDS: CENTRAL LINE FLUSH 10 ML IV PUSH ×3 (04:03→21:43)
[2023-10-17] MEDS: NICOTINE (*PBKC) 21 MG PATCH 1 PATCH TRANSDERM (08:26)
[2023-10-17] MEDS: APIXABAN 5 MG TABLET PO ×2 (08:27→20:24)
[2023-10-17] MEDS: FLUTICASONE PROPIONATE 0.05% NA SPR 16 GM BTL (*BKC) 1 SPRAY NASAL (08:27)
[2023-10-17] MEDS: SOTALOL HCL 80 MG TABLET PO (08:27)
[2023-10-17] MEDS: ASCORBIC ACID 500 MG TABLET 1000 MG PO (08:27)
--- NOTE | 2023-10-17 08:56 | PM.IMPN ---
Progress Note: A&P Assessment and Plan (1) Atrial fibrillation with rapid ventricular response: Code(s): I48.91 - Unspecified atrial fibrillation Status: Acute (2) Congenital heart failure: Code(s): I50.9 - Heart failure, unspecified Status: Acute (3) Hyponatremia: Code(s): E87.1 - Hypo-osmolality and hyponatremia Status: Acute (4) Elevated aspartate aminotransferase level: Code(s): R74.01 - Elevation of levels of liver transaminase levels Status: Acute (5) Non-small cell lung cancer: Onset Date: 02/2020 Code(s): C34.90 - Malignant neoplasm of unspecified part of unspecified bronchus or lung Status: Acute (6) Hypertension: Code(s): I10 - Essential (primary) hypertension Status: Acute (7) Anxiety: Code(s): F41.9 - Anxiety disorder, unspecified Status: Acute (8) Tobacco dependence: Code(s): F17.200 - Nicotine dependence, unspecified, uncomplicated Status: Acute Plan The patient presented to the emergency department for evaluation of increasing shortness of breath, orthopnea, and lower extremity edema AFib RVR She was in rapid atrial fibrillation on arrival to the ED Chest CTA was negative for pulmonary embolism. echocardiogram Complete two-dimensional, color flow and Doppler transthoracic echocardiogram is performed. 2. Mild left ventricular enlargement with severe global systolic hypokinesia and low ejection fraction. 3. Mild to moderate mitral regurgitation. 4. Trivial aortic regurgitation. 5. Right ventricular systolic dysfunction. 6. No significant pericardial effusion seen. Left Ventricle Left ventricular chamber dimension is mildly enlarged. Left ventricular systolic function is severely reduced, estimated at 20-25%. The left ventricular diastolic function is normal. Patient has sinus rhythm now Sizing Machine And Drier Operator recommend to stop Sotalol (had received only total of 3 doses). Start back low dose Metoprolol. s/w Amiodarone 200mg once daily for maintenance of sinus rhythm. Continue Eliquis. congestive heart failure Patient has orthopnea, lower extremity edema, pleural effusions, and pulmonary edema with a markedly elevated proBNP. Received Lasix 40 mg b.i.d. IV push Follow-up input output Monitor renal function, and electrolytes. Blood pressure is low Euvolemic Continue Lasix 40 mg daily p.o. Hyponatremia Possible hypervolemic hyponatremia Sodium low and stable Transaminitis AST is high however has been running high for quite some time and she is being followed by liver specialist at [facility] thus no further workup is being pursued at this time. Hypotension Patient has history of hypertension Blood pressure stable now lung cancer Left upper lobe mass, consistent with known malignancy. Multiple additional scattered nodules are present in both lungs, consistent with metastatic disease. No sign of infection Patient will follow-up with oncologist in the office Subjective Date/time seen: 10/17/23 08:56 Interval history: I saw examined the patient . Patient has no new issue even overnight, patient denies palpitation, shortness of breath breath Patient has a cough without phlegm. And patient is afebrile, blood pressure stable. Patient denies lightheadedness and chest pain Exam Narrative: GENERAL: Pleasant, in no acute distress. Well-nourished. - EYES: EOMI. Anicteric. - HENT: Moist mucous membranes. - LUNGS: Lungs clear - CARDIOVASCULAR: Irregular irregular rhythm, tachycardia, No murmur. No JVD. - ABDOMEN: Soft, non-tender and non-distended. No palpable masses. - EXTREMITIES: No edema. Peripheral pulses 2+. Non-tender. - NEUROLOGIC: No focal neurological deficits. CN II-XII grossly intact. - PSYCHIATRIC: Awake, Alert and oriented x 3. Appropriate mood and affect. - SKIN: No rashes or lesions. Warm. - LYMPH: No cervical lymphadenopathy. Objective Data Vital Signs
--- NOTE | 2023-10-17 09:30 | ECG_ITS ---
Test Date: 2023-10-17 09:31:33 Measurements Intervals [place] Rate: 88 P: 48 MS: 192 QRS: 97 QRSD: 134 T: 122 QT: 457 QTc: 555 Interpretive Statements SINUS RHYTHM RIGHT AXIS DEVIATION POSSIBLE LEFT ATRIAL ENLARGEMENT LEFT BUNDLE BRANCH BLOCK ABNORMAL ECG Compared to ECG 10/16/2023 20:53:48 NO SIGNIFICANT CHANGE Electronically Signed On 10-17-2023 09:39:07 CDT by Jesus Garcia D.O.
--- NOTE | 2023-10-17 10:00 | PM.PNCARD ---
Progress Note: A&P Assessment and Plan (1) Acute heart failure with reduced ejection fraction (HFrEF, <= 40%): Code(s): I50.21 - Acute systolic (congestive) heart failure Status: Acute Assessment and Plan: Admitted with decompensated heart failure. Diuresed well on IV Lasix, now appears euvolemic. Will start Lasix 40mg once daily to maintain euvolemia. Echocardiogram shows LVEF 20-25%. Will start low-dose Toprol. Will see how her pressures do with the Lasix and Toprol. Her blood pressures are currently on the lower side, and may not tolerate heart failure GDMT. (2) Atrial fibrillation with rapid ventricular response: Code(s): I48.91 - Unspecified atrial fibrillation Status: Acute Assessment and Plan: Given her decompensated heart failure with severely reduced LVEF, not an appropriate candidate for Sotalol. Will stop Sotalol (had received only total of 3 doses). Start back low dose Metoprolol. Will do Amiodarone 200mg once daily for maintenance of sinus rhythm. Continue Eliquis. (3) HTN (hypertension): Code(s): I10 - Essential (primary) hypertension Status: Acute Assessment and Plan: Will see how her pressures do with the Lasix and Toprol. Her blood pressures are currently on the lower side, and may not tolerate heart failure GDMT. Plan Recommendations and plan discussed with Hospitalist. Subjective Date/time seen: 10/17/23 10:00 Interval history: Reason for visit: Atrial fibrillation with RVR, cardiomyopathy HPI: 67-year-old female patient presented to the hospital with progressive shortness of breath. Shortness of breath was moderate to severe present with mild activity. There was no shortness of breath at rest. She also noted bilateral lower extremity swelling for last 1 week. She has been having symptoms of upper respiratory tract infection for 1 month associated with dry cough. She was admitted to the hospital with an with CHF started on Lasix with improvement in her symptoms. She also mentions he had midsternal chest pain radiating burning in character moderate in severity happened 2 times in the last month. Date of service 10/15: Paroxysmal atrial fibrillation in the setting of metastatic non-small cell lung cancer. Despite metoprolol she still is going in and out of atrial fib although she is essentially asymptomatic of her arrhythmia. Date of service 10/16: Feeling much better today. No longer having shortness of breath. Tele with sinus rhythm. Review of Systems Review of Systems: All systems reviewed & are unremarkable except as noted in HPI and below (HPI) Exam Const: General: comfortable and no acute distress HENMT: Mouth: Yes moist mucous membranes Eyes: General: appearance normal, both eyes and all related structures Sclera: sclerae normal Resp: Effort & Inspection: normal respiratory effort Auscultation: clear to auscultation bilaterally Cardio: Rate: regular rate Rhythm: regular rhythm Heart sounds: no murmurs Other: Trace bilateral lower extremity edema Skin: General skin exam: normal color Neuro: Speech: normal speech Psych: Mental Status: mental status grossly normal Affect: normal affect Objective Data Vital Signs Vital Signs: Vital Signs - 24 hr 10/16/23 11:38 10/16/23 11:59 10/16/23 12:00 Temperature 36.7 C Pulse Rate 129 H 122 H 125 H Respiratory Rate 28 H Blood Pressure 91/76 L Pulse Oximetry 92 Oxygen Delivery Oxygen Flow Rate Fraction of Inspired Oxygen 10/16/23 12:00 10/16/23 14:00 10/16/23 15:40 Temperature 36.3 C L Pulse Rate 69 71 Respiratory Rate 20 Blood Pressure 92/66 L Pulse Oximetry 92 100 Oxygen Delivery Room Air Oxygen Flow Rate Fraction of Inspired Oxygen 10/16/23 16:00 10/16/23 16:00 10/16/23 18:00 Temperature Pulse Rate 76 74 Respiratory Rate Blood Pressure Pulse Oximetry 93 Oxygen Delivery Room Air Oxygen Flow Rate F
[2023-10-17] MEDS: FUROSEMIDE 40 MG TABLET PO (10:52)
[2023-10-17] MEDS: METOPROLOL SUCCINATE EXT REL 25 MG TABCR PO (10:52)
[2023-10-17 17:55] LABS: Basophils Absolute Auto 0.1 K/mm3 (0.0-0.1); Basophils Percent Auto 0.9 % (0.2-1.2); Eosinophils Absolute Auto 0.2 K/mm3 (0-0.3); Eosinophils Percent Auto 3.1 % (0-4.4); Hematocrit 45.6 % (37.0-47.0); Hemoglobin 15.6 g/dL (12.0-15.0); Immature Granulocyte Absolute 0.02 K/mm3 (0.00-0.031); Immature Granulocyte Percent A 0.3 % (0-0.5); Lymphocytes Absolute Auto 1.34 K/mm3 (0.9-3.2); Lymphocytes Percent Auto 20.8 % (18.3-44.2); Mean Corpuscular HGB Conc 34.2 g/dl (32-36); Mean Corpuscular Hemoglobin 35.1 pg (26-34); Mean Corpuscular Volume 102.7 fl (80-100); Mean Platelet Volume 10.5 fl (7.4-10.4); Monocytes Absolute Auto 0.5 K/mm3 (0.1-0.6); Monocytes Percent Auto 7.9 % (2.6-8.5); Neutrophils Absolute Auto 4.3 K/mm3 (1.3-6.7); Platelet Count Result 186 k/mm3 (150-375); Red Blood Count 4.44 M/mm3 (4.2-5.4); Red Cell Distribution Width 14.3 % (11.5-14.5); White Blood Count 6.4 K/mm3 (4.5-10.0)
--- NOTE | 2023-10-17 18:03 | PC.NURSE ---
This patient, Yessenia Wallis, was received from IMU on 10/17/23 at 1803. Patient/family oriented to unit policies and routines. Report from Gracia OCASIO.
[2023-10-17 18:05] LABS: Anion Gap 6 mmol/L (4-12); Blood Urea Nitrogen 25 mg/dL (7-17); Calcium 8.9 mg/dL (8.4-10.2); Carbon Dioxide 35 mmol/L (22-30); Chloride 88 mmol/L (98-107); Estimated CRCL calculation 59 ml/min; Estimated Glomerular Filt Rate > 60; Glucose 173 mg/dL (65-110); Potassium 3.9 mmol/L (3.4-5.0); Sodium 129 mmol/L (137-145)
--- NOTE | 2023-10-17 18:34 | PC.NURSE ---
This patient, Yessenia Wallis, was transferred to [facility] on 10/17/23 at 1755. Personal belongings sent with patient. Report given to Jeane. Appropriate documentation sent with patient.
[2023-10-17] MEDS: diphenhydrAMINE HCl CAP 25 MG CAPSULE PO (20:24)
[2023-10-17] MEDS: GABAPENTIN 300 MG CAPSULE PO (20:25)
[2023-10-17] MEDS: ALPRAZolam (*CRX) 0.25 MG TABLET PO (21:43)
[2023-10-18] VITALS: PULSE 68
[2023-10-18 04:00] VITALS: BP 107/68; PULSE 60; PULSE 65; RESP 18; TEMP 36.5; O2SAT 91
[2023-10-18] MEDS: CENTRAL LINE FLUSH 10 ML IV PUSH (05:56)
--- NOTE | 2023-10-18 07:38 | PM.IMPN ---
Progress Note: A&P Assessment and Plan (1) Atrial fibrillation with rapid ventricular response: Code(s): I48.91 - Unspecified atrial fibrillation Status: Acute (2) Congenital heart failure: Code(s): I50.9 - Heart failure, unspecified Status: Acute (3) Hyponatremia: Code(s): E87.1 - Hypo-osmolality and hyponatremia Status: Acute (4) Elevated aspartate aminotransferase level: Code(s): R74.01 - Elevation of levels of liver transaminase levels Status: Acute (5) Non-small cell lung cancer: Onset Date: 02/2020 Code(s): C34.90 - Malignant neoplasm of unspecified part of unspecified bronchus or lung Status: Acute (6) Hypertension: Code(s): I10 - Essential (primary) hypertension Status: Acute (7) Anxiety: Code(s): F41.9 - Anxiety disorder, unspecified Status: Acute (8) Tobacco dependence: Code(s): F17.200 - Nicotine dependence, unspecified, uncomplicated Status: Acute Plan The patient presented to the emergency department for evaluation of increasing shortness of breath, orthopnea, and lower extremity edema AFib RVR She was in rapid atrial fibrillation on arrival to the ED Chest CTA was negative for pulmonary embolism. echocardiogram Complete two-dimensional, color flow and Doppler transthoracic echocardiogram is performed. 2. Mild left ventricular enlargement with severe global systolic hypokinesia and low ejection fraction. 3. Mild to moderate mitral regurgitation. 4. Trivial aortic regurgitation. 5. Right ventricular systolic dysfunction. 6. No significant pericardial effusion seen. Left Ventricle Left ventricular chamber dimension is mildly enlarged. Left ventricular systolic function is severely reduced, estimated at 20-25%. The left ventricular diastolic function is normal. Patient has sinus rhythm now Sealing Machine Operator recommend to stop Sotalol (had received only total of 3 doses). Start back low dose Metoprolol. s/w Amiodarone 200mg once daily for maintenance of sinus rhythm. Continue Eliquis. congestive heart failure Patient has orthopnea, lower extremity edema, pleural effusions, and pulmonary edema with a markedly elevated proBNP. Received Lasix 40 mg b.i.d. IV push Follow-up input output Monitor renal function, and electrolytes. Blood pressure is low Euvolemic Continue Lasix 40 mg daily p.o. Hyponatremia Possible hypervolemic hyponatremia Sodium low and stable Transaminitis AST is high however has been running high for quite some time and she is being followed by liver specialist at [facility] thus no further workup is being pursued at this time. Hypotension Patient has history of hypertension Blood pressure stable now lung cancer Left upper lobe mass, consistent with known malignancy. Multiple additional scattered nodules are present in both lungs, consistent with metastatic disease. No sign of infection Patient will follow-up with oncologist in the office Subjective Date/time seen: 10/18/23 07:38 Interval history: I saw examined the patient . Patient has no new issue or events overnight, patient denies palpitation, shortness of breath breath. patient is afebrile, blood pressure stable. Exam Narrative: GENERAL: Pleasant, in no acute distress. Well-nourished. - EYES: EOMI. Anicteric. - HENT: Moist mucous membranes. - LUNGS: Clear to auscultation bilaterally, no wheezing, rhonchi, or rales. - CARDIOVASCULAR: Regular rate and rhythm. No murmur. No JVD. - ABDOMEN: Soft, non-tender and non-distended. No palpable masses. - EXTREMITIES: No edema. Peripheral pulses 2+. Non-tender. - NEUROLOGIC: No focal neurological deficits. CN II-XII grossly intact. - PSYCHIATRIC: Awake, Alert and oriented x 3. Appropriate mood and affect. - SKIN: No rashes or lesions. Warm. - LYMPH: No cervical lymphadenopathy. Objective Data Vital Signs Vital Signs: Vital Signs - 24 hr 07
[2023-10-18 08:00] VITALS: BP 109/72; PULSE 90; RESP 18; TEMP 36.1; O2SAT 93
[2023-10-18 08:40] VITALS: PULSE 75; O2SAT 94
[2023-10-18] MEDS: ASCORBIC ACID 500 MG TABLET 1000 MG PO (08:40)
[2023-10-18] MEDS: APIXABAN 5 MG TABLET PO (08:40)
[2023-10-18] MEDS: METOPROLOL SUCCINATE EXT REL 25 MG TABCR PO (08:40)
[2023-10-18] MEDS: NICOTINE (*PBKC) 21 MG PATCH 1 PATCH TRANSDERM (08:40)
[2023-10-18] MEDS: AMIODARONE HCL 200 MG TABLET PO (08:40)
[2023-10-18] MEDS: FUROSEMIDE 40 MG TABLET PO (08:40)
[2023-10-18] MEDS: ALPRAZolam (*CRX) 0.25 MG TABLET PO (08:47)
[2023-10-18 09:16] LABS: NT Pro B Type Natriuretic Pept 13100 pg/mL (19.9-100)
--- NOTE | 2023-10-18 09:42 | PM.PNCARD ---
Progress Note: A&P Assessment and Plan (1) Acute heart failure with reduced ejection fraction (HFrEF, <= 40%): Code(s): I50.21 - Acute systolic (congestive) heart failure Status: Acute Assessment and Plan: Admitted with decompensated heart failure. Diuresed well on IV Lasix, now appears euvolemic. Started Lasix 40mg once daily to maintain euvolemia. Echocardiogram shows LVEF 20-25%. Started low-dose Toprol. Will see how her pressures do with the Lasix and Toprol. Her blood pressures are currently on the lower side, and may not tolerate heart failure GDMT. Thus far, she is tolerating them well. Will do optimization of heart failure regimen as an outpatient. (2) Atrial fibrillation with rapid ventricular response: Code(s): I48.91 - Unspecified atrial fibrillation Status: Acute Assessment and Plan: Given her decompensated heart failure with severely reduced LVEF, not an appropriate candidate for Sotalol. Stopped Sotalol (had received only total of 3 doses). Started back low dose Metoprolol. Will do Amiodarone 200mg once daily for maintenance of sinus rhythm. Continue Eliquis. (3) HTN (hypertension): Code(s): I10 - Essential (primary) hypertension Status: Acute Assessment and Plan: Stable Plan Okay to discharge home from a cardiology standpoint. Will arrange follow up in our office. Recommendations and plan discussed with Hospitalist. Subjective Date/time seen: 10/18/23 09:42 Interval history: Reason for visit: Atrial fibrillation with RVR, cardiomyopathy HPI: 67-year-old female patient presented to the hospital with progressive shortness of breath. Shortness of breath was moderate to severe present with mild activity. There was no shortness of breath at rest. She also noted bilateral lower extremity swelling for last 1 week. She has been having symptoms of upper respiratory tract infection for 1 month associated with dry cough. She was admitted to the hospital with an with CHF started on Lasix with improvement in her symptoms. She also mentions he had midsternal chest pain radiating burning in character moderate in severity happened 2 times in the last month. Date of service 10/15: Paroxysmal atrial fibrillation in the setting of metastatic non-small cell lung cancer. Despite metoprolol she still is going in and out of atrial fib although she is essentially asymptomatic of her arrhythmia. Date of service 10/16: Feeling much better today. No longer having shortness of breath. Tele with sinus rhythm. Date of service 10/17: Feeling well today, wants to go home. Review of Systems Review of Systems: All systems reviewed & are unremarkable except as noted in HPI and below (HPI) Exam Const: General: comfortable and no acute distress HENMT: Mouth: Yes moist mucous membranes Eyes: General: appearance normal, both eyes and all related structures Sclera: sclerae normal Resp: Effort & Inspection: normal respiratory effort Cardio: Rate: regular rate Rhythm: regular rhythm Skin: General skin exam: normal color Neuro: Speech: normal speech Psych: Mental Status: mental status grossly normal Affect: normal affect Objective Data Vital Signs Vital Signs: Vital Signs - 24 hr 10/17/23 10:00 10/17/23 11:34 10/17/23 12:00 Temperature 36.4 C L Pulse Rate 81 63 66 Respiratory Rate 17 Blood Pressure 102/63 Pulse Oximetry 92 Oxygen Delivery 10/17/23 15:44 10/17/23 16:00 10/17/23 20:00 Temperature 36.6 C 37.0 C Pulse Rate 67 69 65 Respiratory Rate 16 18 Blood Pressure 115/71 98/66 L Pulse Oximetry 93 90 Oxygen Delivery 10/17/23 20:00 10/17/23 20:00 10/17/23 23:54 Temperature 36.5 C Pulse Rate 65 63 Respiratory Rate 18 Blood Pressure 100/67 Pulse Oximetry 83 L Oxygen Delivery Room Air 10/18/23 00:00 10/18/23 04:00 10/18/23 04:00 Temperature 36.5 C Pulse Rate 68 60 65 Respiratory Rate 18 Blood Pressure 1
--- NOTE | 2023-10-18 09:54 | PM.DS ---
DS: Admitting Diagnosis Discharge Date 10/17 Admitting Diagnosis (1) Atrial fibrillation with rapid ventricular response: Code(s): I48.91 - Unspecified atrial fibrillation Status: Acute (2) Congenital heart failure: Code(s): I50.9 - Heart failure, unspecified Status: Acute (3) Hyponatremia: Code(s): E87.1 - Hypo-osmolality and hyponatremia Status: Acute (4) Elevated aspartate aminotransferase level: Code(s): R74.01 - Elevation of levels of liver transaminase levels Status: Acute (5) Non-small cell lung cancer: Onset Date: 02/2020 Code(s): C34.90 - Malignant neoplasm of unspecified part of unspecified bronchus or lung Status: Acute (6) Hypertension: Code(s): I10 - Essential (primary) hypertension Status: Acute (7) Anxiety: Code(s): F41.9 - Anxiety disorder, unspecified Status: Acute (8) Tobacco dependence: Code(s): F17.200 - Nicotine dependence, unspecified, uncomplicated Status: Acute DS: Discharge Diagnosis Discharge Diagnosis (1) Atrial fibrillation with rapid ventricular response: Code(s): I48.91 - Unspecified atrial fibrillation Status: Acute (2) Congenital heart failure: Code(s): I50.9 - Heart failure, unspecified Status: Acute (3) Hyponatremia: Code(s): E87.1 - Hypo-osmolality and hyponatremia Status: Acute (4) Elevated aspartate aminotransferase level: Code(s): R74.01 - Elevation of levels of liver transaminase levels Status: Acute (5) Non-small cell lung cancer: Onset Date: 02/2020 Code(s): C34.90 - Malignant neoplasm of unspecified part of unspecified bronchus or lung Status: Acute (6) Hypertension: Code(s): I10 - Essential (primary) hypertension Status: Acute (7) Anxiety: Code(s): F41.9 - Anxiety disorder, unspecified Status: Acute (8) Tobacco dependence: Code(s): F17.200 - Nicotine dependence, unspecified, uncomplicated Status: Acute DS: Summary Hospital Course Hospital Course: Per H&P, 67-year-old female smoker with non-small cell carcinoma arising status post chemoradiation and immunotherapy, hypertension, peripheral neuropathy, and anxiety who presented to the emergency department for evaluation of shortness of breath. The patient provides the following history. About a month ago she had a chest cold and the cough never went away and it is still occasionally productive of clear sputum. She has felt more short of breath than normal since that infection and that seems to have gotten worse over the last several days. Her legs have been swelling and she feels short of breath when lying supine. In the ED: She was in rapid atrial fibrillation with a rate of 135 on arrival which is a new diagnosis for her. She has been afebrile and blood pressures are stable. Labs were significant for WBC count of 6.1, hemoglobin 16.0, platelet 186, sodium 128, chloride 93, BUN 19, creatinine 0.60, AST 610, proBNP 76335, troponin 0.013. Chest CTA was negative for PE but showed moderate pleural effusions, findings of edema or pneumonia, and left upper lobe mass this is with no malignancy with multiple metastases to both lungs. She was started on a diltiazem drip with improvement in her rates and was given 1 mg/kg enoxaparin and she is being admitted in this setting for further treatment and evaluation. The following med issues have been addressed during hospitalization AFib RVR She was in rapid atrial fibrillation on arrival to the ED Chest CTA was negative for pulmonary embolism. echocardiogram Complete two-dimensional, color flow and Doppler transthoracic echocardiogram is performed. 2. Mild left ventricular enlargement with severe global systolic hypokinesia and low ejection fraction. 3. Mild to moderate mitral regurgitation. 4. Trivial aortic regurgitation. 5. Right ventricular systolic dysfunctio
[2023-10-18] MEDS: HEPARIN SODIUM LOCK FLUSH 500 UNITS/5 ML SYRINGE IV PUSH (11:57)
== END 2023-10-18 12:20 | disposition home or self-care (01) | DRG 308 ==
LOC: ANHED 14:30 → ANHIMU 15:48 → ANH2MED 10-17 17:45
PROVIDERS: Emergency Medicine; Physician Assistant; Admitting Provider Hospitalist; Emergency Provider Student in an Organized Health Care Education/Training Program; PCP Internal Medicine Gastroenterology; Visit Provider Hospitalist
DX: I48.0 Paroxysmal atrial fibrillation (principal); I50.23 Acute on chronic systolic (congestive) heart failure; C34.90 Malignant neoplasm of unspecified part of unspecified bronchus or lung; E87.1 Hypo-osmolality and hyponatremia; I11.0 Hypertensive heart disease with heart failure; F41.9 Anxiety disorder, unspecified; F17.210 Nicotine dependence, cigarettes, uncomplicated; G62.9 Polyneuropathy, unspecified; I95.9 Hypotension, unspecified; R74.01 Elevation of levels of liver transaminase levels; Z66 Do not resuscitate; Z79.82 Long term (current) use of aspirin; Z92.21 Personal history of antineoplastic chemotherapy
CPT/HCPCS: 36415; 71045; 71046; 71275; 78815; 80048; 80053; 83735; 83880; 84443; 84484; 85025; 85027; 93005; 93306; 93970; 96361; 96365; 96372; 96376; 99285; A9270; A9552; J1642; J1650; J1940; J7120; Q9967

== ENCOUNTER 2024-03-25 06:34 | Outpatient (CLI) | payer MEDICARE, OTHER, SELFPAY ==
--- NOTE | ~2024-03-25 | CT_ITS ---
Clinical Indication: Lung cancer CT Scan of the Chest with Contrast: Technique: Contiguous sections were acquired throughout the chest after intravenous administration of 75 cc of Omnipaque 350. Dose reduction technique was used on this scan by utilizing automated exposu re control and iterative reconstruction technique. The dose-length product (DLP) was 151.64 mGy-cm. COMPARISON: 10/14/2023 Findings: There is no evidence of any significant mediastinal, hilar or axillary lymphadenopathy. There is no f illing defect in the pulmonary arterial tree to suggest pulmonary embolus. There is no evidence of ao rtic dissection or aneurysm. There is no evidence of pleural or pericardial effusion. 1.7 cm spiculated nodule in the medial left upper lobe is similar to prior exam (axial image 34). Lar kutr mass seen on prior exam towards the lingula is significantly decreased in size, measuring approxi mately 2.6 cm in diameter on the current exam, with surrounding somewhat wedgelike consolidation, whi ch could reflect posttreatment change or chronic atelectasis. Stable left lower lobe pleural-based no dule measuring 1 cm (axial image 94). Several additional subcentimeter left lower lobe pulmonary nodu les are also present (axial images 101-105). Stable 8 mm right lower lobe pulmonary nodule (axial ced ge 107). Several subcentimeter right middle lobe pulmonary nodules are similar to prior exam. There i s mild emphysema. Images through the upper abdomen reveal no abnormalities. Impression: Dominant left upper lobe mass/nodule is significantly decreased in size, now measuring approximately 2.6 cm in diameter, with surrounding chronic atelectasis or post obstructive pneumonia. Additional smaller pulmonary nodules bilaterally are essentially unchanged, suspicious for metastatic disease, with largest such nodule measuring 1.7 cm in the medial left upper lobe. Mild emphysema. Reviewed, dictated and finalized at location [facility] Impression: Dominant left upper lobe mass/nodule is significantly decreased in size, now me asuring approximately 2.6 cm in diameter, with surrounding chronic atelectasis or post obstructive pneumonia. Additional smaller pulmonary nodules bilaterally are essentially unchanged, master picious for metastatic disease, with largest such nodule measuring 1.7 cm in th e medial left upper lobe. Mild emphysema.
[2024-03-25 07:06] LABS: Estimated Glomerular Filt Rate > 60
== END 2024-03-25 06:35 | disposition home or self-care (01) ==
PROVIDERS: PCP Internal Medicine Hematology & Oncology; Visit Provider Internal Medicine Hematology & Oncology
DX: C34.92 Malignant neoplasm of unspecified part of left bronchus or lung (principal); J43.9 Emphysema, unspecified
CPT/HCPCS: 71260; Q9967

== ENCOUNTER 2024-04-07 16:01 | Emergency (ER) | payer MEDICARE, OTHER, SELFPAY ==
[2024-04-07] VITALS (7 sets, daily range): BP systolic 154–164; BP diastolic 84–93; PULSE 80–95; RESP 16–25; TEMP 37.1; O2SAT 95–100
--- NOTE | ~2024-04-07 | XR_ITS ---
EXAMINATION: XR ribs BI 3V w CXR 2V Exam Date/Time: 04/07/2024 16:52 [facility] HISTORY: Bilateral lower chest pain Comparison: 10/18/2023; CT chest 03/25/2024. RESULT: Lines, tubes, and devices: Right chest implanted port terminating in the SVC. Lungs and pleura: Left midlung pulmonary mass. Subcentimeter left lower lung pulmonary nodules. Subc entimeter right lower lung pulmonary nodule. Cardiothymic silhouette: Stable. Other: Osteopenia. No rib fracture detected. Mild anterior wedge deformity of a lower thoracic verteb ral body, likely T10. No acute upper abdominal finding. IMPRESSION: Redemonstration of a left midlung mass with multiple pulmonary nodules. No acute osseous finding in the ribs. Mild anterior wedge deformity of a lower thoracic vertebral body, likely T10, correlate for pain/tend erness. Reviewed, dictated and finalized at location [facility] IMPRESSION: Redemonstration of a left midlung mass with multiple pulmonary nodules. No acute osseous finding in the ribs. Mild anterior wedge deformity of a lower thoracic vertebral body, likely T10, c orrelate for pain/tenderness.
[2024-04-07 16:30] LABS: Hematocrit 47.9 % (37.0-47.0); Hemoglobin 15.4 g/dL (12.0-15.0); Mean Corpuscular HGB Conc 32.2 g/dl (32-36); Mean Corpuscular Volume 115.1 fl (80-100); Mean Platelet Volume 9.5 fl (7.4-10.4); Platelet Count Result 178 k/mm3 (150-375); Red Blood Count 4.16 M/mm3 (4.2-5.4); Red Cell Distribution Width 12.7 % (11.5-14.5); White Blood Count 5.9 K/mm3 (4.5-10.0)
[2024-04-07 16:44] LABS: Alanine Aminotransferase 17 U/L (6-35); Albumin Level 4.2 g/dL (3.5-5.1); Alkaline Phosphatase 88 U/L (38-126); Anion Gap 10 mmol/L (4-12); Aspartate Amino Transferase 623 U/L (14-36); Bilirubin,Total 0.7 mg/dL (0.2-1.3); Blood Urea Nitrogen 18 mg/dL (7-17); Calcium 8.6 mg/dL (8.4-10.2); Carbon Dioxide 28 mmol/L (22-30); Chloride 101 mmol/L (98-107); Estimated CRCL calculation 67 ml/min; Estimated Glomerular Filt Rate > 60; Glucose 110 mg/dL (65-110); Lipase 80 U/L (23-300); Potassium 3.8 mmol/L (3.4-5.0); Sodium 139 mmol/L (137-145)
[2024-04-07 16:49] LABS: Add Urine Microscopic? YES; Appearance Urine Clear (Clear); Bacteria Urine None Seen /hpf; Bilirubin Urine Negative (Negative); Blood Urine Non-Hemolyzed Trace (Negative); Color Urine Yellow (Yellow); Glucose Urine UA Negative (Negative); Ketones Urine Negative (Negative); Leukocyte Esterase Ur Negative LEU/UL (Negative); Nitrate Urine Negative (Negative); Non Pathogenic Casts 0-2; Protein Urine Trace mg/dL (Negative); Specific Grav Ur 1.015 (1.001-1.035); Squamous Epithelial Cell Urine None Seen /hpf (Few); Urobilinogen Urine 0.2 mg/dL (<2.0); WBC Urine 0-5 /hpf (0-3)
--- NOTE | 2024-04-07 16:51 | ED.ABDPAIN ---
HPI - Abdominal Pain General Chief Complaint: Abdominal Pain Stated Complaint: abd pain? Time Seen by Provider: 04/07/24 16:10 Source: patient Mode of arrival: ambulatory Limitations: no limitations History of Present Illness HPI narrative: This is a 68-year-old female with history of hypertension, non-small cell lung cancer and anxiety, who presents emergency department complaining of bilateral inferior rib margin pain for the past 3 days. She describes pain as sharp, aggravated by specific movements and alleviated by remaining still. She states in the 4 days leading up to her symptoms, she had been moving heavy boxes, disassembling [employer] decorations and carrying other heavy equipment. she denies trauma, fevers, chills, cough or other chest pain. She has no other complaints at this time. Related Data Home Medications ?Medication ?Instructions ?Recorded ?Confirmed ?Last Taken ?Type aspirin 81 mg tablet,delayed 81 mg PO DAILY 11/15/19 10/14/23 01/12/20 History release fluticasone propionate 50 1 spray intranasal DAILY 01/13/20 10/14/23 Unknown History mcg/actuation nasal spray,suspension ascorbic acid (vitamin C) 1,000 mg 1 g PO DAILY 04/16/20 10/14/23 Unknown History tablet (Vitamin C) alprazolam 0.25 mg tablet (Xanax) 0.25 mg PO BID PRN Anxiety 04/30/20 10/14/23 Unknown History diphenhydramine HCl 25 mg capsule 25 mg PO HS 10/14/23 10/14/23 Unknown History (Benadryl) gabapentin 300 mg capsule 300 mg PO HS 10/14/23 10/14/23 Unknown History hydrocodone 5 mg-acetaminophen 325 1 tablet PO Q6H PRN Pain (Scale 10/14/23 10/14/23 Unknown History mg tablet Score 7-10) Allergies Allergy/AdvReac Type Severity Reaction Status Date / Time pentazocine (From Anjali) Allergy Irritable Verified 04/07/24 16:08 Review of Systems Review of Systems: All systems reviewed & are unremarkable except as noted in HPI and below PMFSH Past Medical History Medical History Anxiety Tobacco dependence Non-small cell lung cancer (02/2020) Arising in the left lung with multiple pulmonary lesions (no extrapulmonary disease) status post chemo radiation and immunotherapy. Hypertension Surgical History Surgical History History of laparoscopy History of hysterectomy (1997) History of tonsillectomy (1965) History of cholecystectomy (1998) Family History Family History Grandparent Lung cancer Mother Breast cancer Small bowel cancer FH: kidney cancer Skin cancer Mother No problems noted. Father Skin cancer Social History Social History Social History: Surrogate medical decision maker: Elliott Wallis, spouse Code status: Do not resuscitate. Smoking packs per day: 1 Smoking cigarettes per day: 20.0 Years smoked: 40 Smoking pack-years: 40.00 Smoking status: Current every day smoker Tobacco type: cigarettes Second hand tobacco smoke exposure: No Additional smoking assessment comments: cutting back since diagnosis Alcohol intake: never Substance use: never Substance use type: does not use Do You Feel Safe in your Home?: Yes Lack of Transportation: No Lack of Food: Never True Current Housing: I Have Housing Concerned About Future Housing: No Difficulty Paying Gas/Electric Bills: No Difficulty Paying for Meds: No Currently Unemployed: No Education: High School Diploma/GED Difficulty w/ Childcare or Family Care: No Living arrangements: with family Spiritual care concerns: No Exam Narrative: GENERAL: Well-developed, well-nourished, and in no acute distress. Appears uncomfortable HEAD: Normocephalic, atraumatic. EYES: PERRLA and EOMI. CHEST: Clear to auscultation. No respiratory distress. No wheezes rales or rhonchi. Mild tenderness to palpation at the inferior costal margin bilaterally without step-off or crepitus. HEART: Regular rate and rhythm. No murmur heard. Normal peripheral pulses. ABDOMEN: Soft, mild tenderness to palpation at the inferior costal margin as noted above, otherwise nontender, nondistended, normal active bowel sounds. no CVA tenderness EXTREMITIES: Normal range of motion. No edema. SKIN: Warm, dry, no rash. NEURO: Alert and oriented x3. No focal deficit. Moving all 4 limbs spontaneously PSYCH: Normal mood and affect. Course Course Emergency Course: 17:50 - Urinalysis demonstrates 3-5 RBCs but is otherwise unremarkable. Chemistries demonstrate chronically elevated AST but is otherwise unremarkable. CBC demonstrates chronically elevated hemoglobin of 15.4 but is otherwise unremarkable. The patient's chest x-ray and rib series demonstrate left midlung mass with multiple pulmonary nodules as well as a anterior wedge deformity of T10 but are otherwise not concerning for fracture, acute consolidation or pneumothorax. I suspect musculoskeletal strain as the cause of the patient's pain. Will discharge with pain medications, muscle relaxers, lidocaine patches and recommendation for primary care follow-up. I advised the patient of the importance of deep breathing to reduce risk of pneumonia. I discussed the findings and recommendations with the patient. Discussed return and emergency precautions including signs/symptoms of ACS, pneumonia respiratory distress. The patient voiced understanding and agreement with the plan. All questions answered to her satisfaction. Vital Signs Vital signs: Vital Signs Temperature 98.7 F 04/07/24 16:04 Pulse Rate 85 04/07/24 16:04 Respiratory Rate 16 04/07/24 16:04 Blood Pressure 159/93 H 04/07/24 16:04 Pulse Oximetry 100 04/07/24 16:04 Oxygen Delivery Room Air 04/07/24 16:04 Temperature 98.7 F 04/07/24 16:04 Pulse Rate 80 04/07/24 17:46 Respiratory Rate 19 04/07/24 17:46 Blood Pressure 154/84 H 04/07/24 17:46 Pulse Oximetry 97 04/07/24 17:46 Oxygen Delivery Room Air 04/07/24 16:04 MDM - Abdominal Pain MDM Narrative Medical decision making narrative: Plan: Imaging, labs, pain control, reassess Differential Diagnosis Differential diagnosis: Likely other ( UTI, pyelonephritis, pneumothorax, costochondritis, musculoskeletal strain, other) Lab Data 04/07/24 16:24 04/07/24 16:24 Labs: Lab Results 04/07/24 Range/Units 16:24 WBC 5.9 (4.5-10.0) K/mm3 RBC 4.16 L (4.2-5.4) M/mm3 Hgb 15.4 H (12.0-15.0) g/dL Hct 47.9 H (37.0-47.0) % MCV 115.1 H (80-100) fl MCH 37.0 H (26-34) pg MCHC 32.2 (32-36) g/dl RDW 12.7 (11.5-14.5) % Plt Count 178 (150-375) k/mm3 MPV 9.5 (7.4-10.4) fl Immature Gran % (Auto) Not Reportable Neut % (Auto) Not Reportable Lymph % (Auto) Not Reportable Nicholas % (Auto) Not Reportable Eos % (Auto) Not Reportable Baso % (Auto) Not Reportable Lymph # (Auto) Not Reportable Nicholas # (Auto) Not Reportable Eos # (Auto) Not Reportable Baso # (Auto) Not Reportable Abs Immat Gran (auto) Not Reportable Absolute Neuts (auto) Not Reportable Absolute Nucleated RBC Not Reportable Total Counted 100 Neutrophils % (Manual) 73 (46-73) % Band Neutrophils % 5 (0-6) % Lymphocytes % (Manual) 16.0 L (18-44) % Monocytes % (Manual) 6 (3-9) % Nucleated RBC % Not Reportable Abs Neuts (Manual) 4.60 (1.7-7.2) K/mm3 Abs Lymphs (Manual) 0.94 L (1.1-4.5) K/mm3 Abs Monocytes (Manual) 0.35 (0.1-0.90) K/mm3 Platelet Estimate Adequate (Adequate) Macrocytosis 1+ (NORMAL) Schistocytes None seen Sodium 139 (137-145) mmol/L Potassium 3.8 (3.4-5.0) mmol/L Chloride 101 (98-107) mmol/L Carbon Dioxide 28 (22-30) mmol/L Anion Gap 10 (4-12) mmol/L BUN 18 H (7-17) mg/dL Creatinine 0.69 L (0.7-1.0) mg/dL Estim Creat Clear Calc 67 ml/min Estimated GFR > 60 (59 - ) Glucose 110 (65-110) mg/dL Calcium 8.6 (8.4-10.2) mg/dL Total Bilirubin 0.7 (0.2-1.3) mg/dL AST 623 H (14-36) U/L ALT 17 (6-35) U/L Alkaline Phosphatase 88 (38-126) U/L Total Protein 7.0 (6.3-8.2) g/dL Albumin 4.2 (3.5-5.1) g/dL Lipase 80 (23-300) U/L Urine Color Yellow (Yellow) Urine Appearance Clear (Clear) Urine pH 6.0 (5.0-9.0) Ur Specific [place] 1.015 (1.001-1.035) Urine Protein Trace (Negative) mg/dL Urine Glucose (UA) Negative (Negative) mg/dL Urine Ketones Negative (Negative) mg/dL Ur Blood (Man) Non-hemolyzed trace H (Negative) Urine Nitrate Negative (Negative) Urine Bilirubin Negative (Negative) Urine Urobilinogen 0.2 (<2.0) mg/dL Leukocyte Esterase Rfl Negative (Negative) ISHAN/UL Urine RBC 3-5 H (0-2) /hpf Urine WBC 0-5 (0-3) /hpf Ur Squamous Epith Cells None seen (Few) /hpf Urine Bacteria None seen /hpf Urine Casts 0-2 Imaging Data Radiologist's impression: ITS Impressions Ribs w/Chest X-Ray 04/07/24 17:16 IMPRESSION: Redemonstration of a left midlung mass with multiple pulmonary nodules. No acute osseous finding in the ribs. Mild anterior wedge deformity of a lower thoracic vertebral body, likely T10, correlate for pain/tenderness. Discharge Plan Discharge Clinical Impression: Acute costochondritis, Wedge deformity on x-ray of spine Strain of abdominal wall Qualifiers: Encounter type: initial encounter Qualified Code(s): S39.011A - Strain of muscle, fascia and tendon of abdomen, initial encounter Patient Disposition: Home, Self-Care Condition: Stable Instructions: Antibiotic Form, Costochondritis (ED) Additional Instructions: You were seen in the emergency department. Your labs show a chronic, slightly elevated hemoglobin of 15. Your liver and kidney function tests demonstrate a chronic elevation of AST without other concerning changes. A chest x-ray was not concerning for rib fracture in showed a deformity in the T10 vertebra. If you develop new or worsening chest pain, shortness of breath, loss of consciousness, or if you have other emergent concerns for life, limb, or eyesight, return to the emergency department. Patient Language: Armenian Prescriptions: New hydrocodone-acetaminophen 5-325 mg tablet 1 tablet PO BID PRN (Reason: pain, severe) Qty: 8 0RF cyclobenzaprine 5 mg tablet 5 mg PO BID PRN (Reason: muscle spasm) Qty: 10 0RF lidocaine 5 % adhesive patch,medicated 2 patch topical DAILY Qty: 30 0RF Rx Instructions: leave on most painful area for up to 12 hrs No Action aspirin 81 mg Tablet,Delayed Release (Dr/Ec) 81 mg PO DAILY ascorbic acid (vitamin C) [Vitamin C] 1,000 mg Tablet 1 g PO DAILY alprazolam [Xanax] 0.25 mg Tablet 0.25 mg PO BID PRN (Reason: Anxiety) gabapentin 300 mg Capsule 300 mg PO HS hydrocodone-acetaminophen 5-325 mg tablet 1 tablet PO Q6H PRN (Reason: Pain (Scale Score 7-10)) diphenhydramine HCl [Benadryl] 25 mg Capsule 25 mg PO HS amiodarone [Pacerone] 200 mg Tablet 200 mg PO DAILY@0800 Qty: 30 1RF Eliquis 5 mg Tablet 5 mg PO Q12HR Qty: 60 1RF furosemide 40 mg Tablet 40 mg PO DAILY Qty: 30 0RF metoprolol succinate [Toprol XL] 25 mg Tablet Extended Release 24 Hr 25 mg PO QAM Qty: 30 0RF fluticasone propionate 50 mcg/actuation Murray,Suspension 1 spray INTRANASAL DAILY Follow-up/Referrals: Malik Lewis MD [Primary Care Provider] - 2 Weeks Time of Disposition: 17:50
[2024-04-07 16:53] LABS: Band Neutrophils Percent 5 % (0-6); Lymphocytes Absolute Manual 0.94 K/mm3 (1.1-4.5); Monocytes Absolute Manual 0.35 K/mm3 (0.1-0.90); Monocytes Percent Manual 6 % (3-9); Neutrophils Percent Manual 73 % (46-73); Platelet Estimate Adequate (Adequate); Total Cells Counted 100
[2024-04-07 16:54] LABS: Macrocytosis 1+ (NORMAL); Schistocytes None Seen
[2024-04-07] MEDS: KETOROLAC 30 MG/ML VIAL (*BKC) IV PUSH (17:12)
[2024-04-07] MEDS: CYCLOBENZAPRINE HCL 5 MG TABLET PO (17:12)
--- OUTSIDE RECORDS SUMMARY | 2024-04-11 10:47 | XMS_ITS | Data Portability ---
Author Organization [facility] Address [address] [place] [address] Assessment No assessment recorded. Plan of Treatment Reminders Order Date Submit Date Provider Last Modified By Organization Details Last Modified Time Details Appointments None recorded. Lab CMP, serum or plasma 2019 [facility], [address] [place] [address], [address], [place], [address], 0 07:08:45 CBC 2019 [facility], [address] [place] [address], [address], [place], [address], 0 07:08:46 lipid panel, serum 2019 [facility], [address] [place] [address], [address], [place], [address], 0 07:08:46 TSH, ultra-sens itive, serum 2019 [facility], [address] [place] [address], [address], [place], [address], 0 14:50:00 TSH + free T4, serum 2019 [facility], [address] [place] [address], [address], [place], [address], 0 07:08:45 T3, free, serum or plasma 2019 020 [facility], [address] [facility], [address], [place], [address], 0 07:08:47 Referral None recorded. Procedures None recorded. Surgeries None recorded. Imaging None recorded. Medication Orders hydrochlor othiazide 12.5 mg capsule 2019 020 [facility], [address] [place], [address], 0 12:10:54 lisinopril 5 mg tablet 2019 020 [facility][id number], [address], [place], [place], [id number], 0 13:02:45 hydroxyzin e HCl 25 mg tablet 2019 020 [facility] #[id number], [address], [place], [place], [id number], 2 15:58:36 lisinopril 5 mg tablet 2021 022 [facility][id number], [address], [place], [place], [id number], 2 16:31:34 Patient TargetsNo targets recorded. Patient Instructions Encounter Date Encounter Id Patient Instructions Last Modified By Organization Details Last Modified Time 08/18/2022 [id number] learning about high blood pressure [email or web address] Not available 08/18/2022 13:29:19 Reason for Referral None Reported. Results Created Date Observation Date Name Description Value Unit Range Abnormal Flag Note LastModifiedBy Organization Detail LastModifiedTime 06/17/19 20 06/18/2019 TSH + free T4, serum TSH 1.630 uIU/m L 0.450- 4.500 Not Available [facility] ([facility]) [address], [place], [address], 06/18/2019 07:08:45 06/17/19 20 06/18/2019 TSH + free T4, serum T4,free(dire ct) 1.43 NG/dL 0.82-1 .77 Not Available [facility] ([facility]) [address] [place], [address], 06/18/2019 07:08:45 06/17/19 20 06/18/2019 CMP, serum or plasm a glucose 94 mg/dL 65-99 Not Available [facility] ([facility]) [address] [place], [address], 06/18/2019 07:08:45 06/17/19 20 06/18/2019 CMP, serum or plasm a BUN 13 mg/dL 8-27 Not Available [facility] ([facility]) [address] [place], [address], 06/18/2019 07:08:45 06/17/19 20 06/18/2019 CMP, serum or plasm a creatinine 0.85 mg/dL 0.57-1 .00 Not Available [facility] ([facility]) [address] [place], [address], 06/18/2019 07:08:45 06/17/19 20 06/18/2019 CMP, serum or plasm a eGFR if nonafricn AM 73 mL/mi n/1.7 3 >59 Not Available [facility] ([facility]) [address] [place], [address], 06/18/2019 07:08:45 06/17/19 20 06/18/2019 CMP, serum or plasm a eGFR if africn AM 84 mL/mi n/1.7 3 >59 Not Available [facility] ([facility]) [address] [place], [address], 06/18/2019 07:08:45 06/17/19 20 06/18/2019 CMP, serum or plasm a BUN/creatini ne ratio 15 12-28 Not Available [facility] ([facility]) [address] [place], [address], 06/18/2019 07:08:45 06/17/1906/18/2019 CMP, serum or plasm a sodium 140 mmol/ L 134-14 4 Not Available [facility] ([facility]) [address] [place], [address], 06/18/2019 07:08:45 06/17/1906/18/2019 CMP, serum or plasm a potassium 4.5 mmol/ L 3.5-5. 2 Not Available [facility] ([facility]) [address] [place], [address], 06/18/2019 07:08:45 06/17/1906/18/2019 CMP, serum or plasm a chloride 100 mmol/ L 96-106 Not Available [facility] ([facility]) [address] [place], [address], 06/18/2019 07:08:45 06/17/1906/18/2019 CMP, serum or plasm a carbon dioxide, total 25 mmol/ L 20- Not Available [facility] ([facility]) [address] [place], [address], 06/18/2019 07:08:45 06/17/1906/18/2019 CMP, serum or plasm a calcium 9.2 mg/dL 8.7-10 .3 Not Available [facility] ([facility]) [address] [place], [address], 06/18/2019 07:08:45 06/17/1906/18/2019 CMP, serum or plasm a protein, total 6.5 g/dL 6.0-8. 5 Not Available [facility] ([facility]) [address] [place], [address], 06/18/2019 07:08:45 06/17/1906/18/2019 CMP, serum or plasm a albumin 4.1 g/dL 3.8-4. 8 Not Available [facility] ([facility]) [address] [facility] [place], [address], 06/18/2019 07:08:45 06/17/19 20 06/18/2019 CMP, serum or plasm a globulin, total 2.4 g/dL 1.5-4. 5 Not Available [facility] ([facility]) [address] [place], [address], 06/18/2019 07:08:45 06/17/19 20 06/18/2019 CMP, serum or plasm a A/G ratio 1.7 1.2-2. 2 Not Available [facility] ([facility]) [address] [facility] [place], [address], 06/18/2019 07:08:45 06/17/19 20 06/18/2019 CMP, serum or plasm a bilirubin, total 0.3 mg/dL 0.0-1. 2 Not Available [facility] ([facility]) [address] [facility] [place], [address], 06/18/2019 07:08:45 06/17/19 20 06/18/2019 CMP, serum or plasm a alkaline phosphatase 66 IU/L 39-117 Not Available [facility]) [address] [place], [address], 06/18/2019 07:08:45 06/17/19 20 06/18/2019 CMP, serum or plasm a AST (SGOT) 21 IU/L 0-40 Not Available [facility] ([facility]) [address] [facility] [place], [address], 06/18/2019 07:08:45 06/17/19 20 06/18/2019 CMP, serum or plasm a ALT (SGPT) 11 IU/L 0-32 Not Available [facility] ([facility]) [address] [place], [address], 06/18/2019 07:08:45 06/17/19 20 06/18/2019 CBC WBC 7.3 x10e3 /uL 3.4-10 .8 Not Available [facility] ([facility]) [address] [facility] [place], [address], 06/18/2019 07:08:46 06/17/19 20 06/18/2019 CBC RBC 4.96 x10e6 /uL 3.77-5 .28 Not Available [facility] ([facility]) [address] [facility] [place], [address], 06/18/2019 07:08:46 06/17/19 20 06/18/2019 CBC hemoglobin 17.0 g/dL 11.1-1 5.9 above high normal Not Available [facility] ([facility]) [address] [facility] [place], [address], 06/18/2019 07:08:46 06/17/19 20 06/18/2019 CBC hematocrit 48.9 % 34.0-4 6.6 above high normal Not Available [facility] ([facility]) [address] [facility] [place], [address], 06/18/2019 07:08:46 06/17/19 20 06/18/2019 CBC MCV 99 fL 79-97 above high normal Not Available [facility] ([facility]) [address] [facility] [place], [address], 06/18/2019 07:08:46 06/17/19 20 06/18/2019 CBC MCH 34.3 pg 26.6-3 3.0 above high normal Not Available [facility] ([facility]) [address] [facility] [place], [address], 06/18/2019 07:08:46 06/17/19 20 06/18/2019 CBC MCHC 34.8 g/dL 31.5-3 5.7 Not Available [facility] ([facility]) [address] [place], [address], 06/18/2019 07:08:46 06/17/19 20 06/18/2019 CBC RDW 11.8 % 11.7-1 5.4 Not Available [facility] ([facility]) [address], [place], [address], 06/18/2019 07:08:46 06/17/19 20 06/18/2019 CBC platelets 190 x10e3 /uL 150-45 0 Not Available [facility] ([facility]) [address], [place], [address], 06/18/2019 07:08:46 06/17/19 20 06/18/2019 CBC NRBC BIOSTATISTICS DIRECTOR Not Available [facility] ([facility]) [address], [place], [address], 06/18/2019 07:08:46 06/17/19 20 06/18/2019 lipid panel , serum cholesterol, total 177 mg/dL 100-19 9 Not Available [facility] ([facility]) [address], [place], [address], 06/18/2019 07:08:46 06/17/19 20 06/18/2019 lipid panel , serum triglyceride s 74 mg/dL 0-149 Not Available [facility] ([facility]) [address], [place], [address], 06/18/2019 07:08:46 06/17/19 20 06/18/2019 lipid panel , serum HDL cholesterol 66 mg/dL >39 Not Available [facility] ([facility]) [address], [place], [address], 06/18/2019 07:08:46 06/17/19 20 06/18/2019 lipid panel , serum VLDL cholesterol po 15 mg/dL 5-40 Not Available [facility] ([facility]) [address], [place], [address], 06/18/2019 07:08:46 03/30/20 20 06/18/2019 lipid panel , serum LDL cholesterol calc 96 mg/dL 0-99 Not Available [facility] ([facility]) [address] [place], [address], 06/18/2019 07:08:46 06/17/19 20 06/18/2019 lipid panel , serum comment: BIOSTATISTICS DIRECTOR Not Available [facility] ([facility]) [address] [facility], [place], [address], 06/18/2019 07:08:46 06/17/19 20 06/18/2019 lipid panel , serum LDL/HDL ratio 1.5 ratio 0.0-3. 2 LDL/H DL Ratio Men Women 1/2 Avg.R isk 1.0 1.5 Avg.R isk 3.6 3.2 2X Avg.R isk 6.2 5.0 3X Avg.R isk 8.0 6.1 Not Available [facility] ([facility]) [address] [facility], [place], [address], 06/18/2019 07:08:46 06/17/19 20 06/18/2019 T3, free, serum or plasm a triiodothyro nine (T3), free 2.5 pg/mL 2.0-4. 4 Not Available [facility] ([facility]) [address] [place], [address], 06/18/2019 07:08:47 01/09/20 20 01/08/2020 CT, chest , w/o contr ast No observ ation record ed. [address], [place], [address], 01/14/2020 12:32:15 01/10/20 20 01/10/2020 US, liver No observ ation record ed. [facility] [address] [facility] [address], [place], [address], 01/14/2020 12:32:16 01/15/20 20 01/08/2020 LDCT, chest , for lung cance r alix bhatti No observ ation record ed. [email or web address] Not Available 2019 12:48:24 01/20/20 20 01/20/2020 XR, chest No observ ation record ed. [address] [address], [place], [address], 01/24/2020 13:38:28 01/20/20 20 01/20/2020 biops y, lung, ct lizandro nce (PROC ) No observ ation record ed. [address] [address], [place], [address], 01/24/2020 13:38:17 01/20/20 20 01/20/2020 XR, chest No observ ation record ed. [address] [address], [place], [address], 01/24/2020 13:37:58 01/24/20 20 01/20/2020 XR, chest No observ ation record ed. [email or web address] Not Available 2019 12:48:25 02/18/20 20 02/18/2020 MRI, brain + brain stem, w/wo contr ast No observ ation record ed. [address] [address], [place], [address], 03/05/2020 18:03:36 03/05/20 20 03/05/2020 PET-C T, skull base to mid-t high scan No observ ation record ed. [address] (Imaging) [address] [place] [address], [place], [address], 03/05/2020 20:23:44 03/18/20 20 03/18/2020 NM, bone scan No observ ation record ed. [address] [address], [place], [address], 03/19/2020 11:08:17 05/27/19 21 05/11/2020 fluor oscop y (PROC ) No observ ation record ed. [email or web address] [id number] Not Available 2020 17:35:41 05/27/19 21 05/11/2020 XR, chest No observ ation record ed. [email or web address] Not Available 2020 17:35:56 07/21/19 21 07/20/2020 CT, chest , w/ contr ast No observ ation record ed. [address], [address], 07/29/2020 14:29:30 09/18/19 21 09/17/2020 CT, chest , w/ contr ast No observ ation record ed. [address], [address], 10/07/2020 18:18:43 12/22/19 21 12/21/2020 CT, chest , w/ contr ast No observ ation record ed. [address], [address], 12/24/2020 11:13:51 04/05/19 22 04/05/2021 imagi ng/di agnos tic resul t No observ ation record ed. [address] [address], [place], [address], 04/26/2021 16:15:38 06/29/19 22 06/28/2021 CT, angio gram, chest , w/ contr ast No observ ation record ed. [address] [facility], [place], [address], 06/29/2021 09:22:34 09/17/19 22 09/16/2021 CT, chest , w/ contr ast No observ ation record ed. [address] [address], [place], [address], 10/04/2021 12:53:12 09/20/19 22 09/16/2021 CT, chest , w/ contr ast No observ ation record ed. [address], [place], [address], 10/04/2021 12:53:40 11/24/19 22 11/23/2021 CT, angio gram, chest , w/ contr ast No observ ation record ed. [address], [place], [address], 11/25/2021 11:09:08 01/26/20 22 01/25/2022 CT, angio gram, chest , w/ contr ast No observ ation record ed. [address] [facility], [place], [address], 01/25/2022 14:27:42 06/01/19 23 05/31/2022 CT, chest , w/ contr ast No observ ation record ed. [address] [address], [place], [address], 06/07/2022 10:02:02 09/03/19 23 09/01/2022 CT, abdom en + pelvi s, w/ contr ast No observ ation record ed. [address] [address], [place], [address], 09/06/2022 16:43:15 09/29/19 23 09/28/2022 CT, chest , w/ contr ast No observ ation record ed. [address] [facility], [place], [address], 10/01/2022 16:09:11 12/28/19 23 12/27/2022 CT, chest + abdom en + pelvi s, w/ contr ast No observ ation record ed. [address] [address], [place], [address], 12/27/2022 14:15:52 04/03/19 24 04/03/2023 CT, chest , w/ contr ast No observ ation record ed. [address] [address], [place], [address], 04/12/2023 05:40:43 06/21/19 24 06/19/2023 CT, chest , w/ contr ast No observ ation record ed. [address] [address], [place], [address], 07/07/2023 10:11:02 06/22/19 24 06/19/2023 CT, chest , w/ contr ast No observ ation record ed. [address] [address], [place], [address], 07/07/2023 10:13:20 09/25/19 24 09/25/2023 CT, abdom en + pelvi s, w/ contr ast No observ ation record ed. [address] [address], [place], [address], 10/04/2023 05:18:05 10/13/19 24 10/12/2023 PET, skull base to mid-t high No observ ation record ed. [address] [address], [place], [address], 10/16/2023 10:39:34 10/14/19 24 10/14/2023 XR, chest , 2 view No observ ation record ed. [address] [address], [place], [address], 10/16/2023 10:42:31 10/14/19 24 10/14/2023 CT, angio gram, chest , w/ contr ast No observ ation record ed. [address] [address], [place], [address], 10/16/2023 10:42:52 10/15/19 24 10/15/2023 US, duple x, venou s, lower extre mity No observ ation record ed. [address] [address], [place], [address], 10/16/2023 10:43:07 10/16/19 24 10/16/2023 CT, heart , w/o contr ast, w/ coron andrea calci um score No observ ation record ed. [address], [place], [address], 10/16/2023 17:48:39 10/18/19 24 10/18/2023 XR, chest , 2 view No observ ation record ed. [place] [id number] [facility] [address], [place], [address], 10/29/2023 07:39:48 Result Notes None recorded. Problems Name Problem SNOMED Code Status Onset Date Resolution Date Notes Provider Name and Address Organization Details Recorded Time Essential hypertension 39457871 Active 2019 Freddy Gallagher MD Attn: Dionte han,[address] [facility], [place], [address], [place] [facility] 0 14:45:57 Multiple bruising 131461213 Active 2019 Freddy Gallagher MD Attn: Dionte han,[address] [facility], [place], [address], [place] [facility] 0 14:47:00 Palmar erythema 59818617 Active 2019 Freddy Gallagher MD Attn: Dionte han,[address] [facility], [place], [address], [place] [facility] 0 14:47:22 Erythrocytosis 775173270 Active 2019 Freddy Gallagher MD Attn: Dionte han,[address] [facility], [place], [address], [place] [facility] 0 18:03:17 Disease of liver 332452113 Active 2019 Freddy Gallagher MD Attn: Dionte han,[address] [facility], [place], [address], [place] [facility] 0 11:30:11 Anxiety 87412989 Active 2019 Freddy Gallagher MD Attn: Dionte han,[address], [place], [address], [facility] 0 12:59:08 Adenocarcinoma of lung 709689376 Active 2022 Freddy Gallagher MD Attn: Dionte han,[address], [place], [address], [facility] - [facility] 3 13:24:53 Problem Notes None recorded. Procedures Surgical History Date Name Laterality Status Provider Name and Address Organization Details Recorded Time Tonsillectomy completed Esmer Wallis [place] [facility] 06/17/2019 13:57:56 Total hysterectomy completed Esmer Wallis MA [place] [facility] 06/17/2019 13:58:01 cholecystectomy completed Esmer vázquez MA [place] - [facility] 06/17/2019 13:58:20 Imaging Results Imaging Date Name Status [facility]Modified by [email or web address] Details LastModified Time 01/08/2020 CT, chest, w/o contrast completed [address], [address], 01/14/2020 12:32:15 01/10/2020 US, liver completed [address], [address], 01/14/2020 12:32:16 01/08/2020 LDCT, chest, for lung cancer screening [email or web address] [id number] Information not available 01/24/2020 12:48:24 01/20/2020 XR, chest completed [address], [address], 01/24/2020 13:38:28 01/20/2020 biopsy, lung, ct guidance (PROC) completed [address], [address], 01/24/2020 13:38:17 01/20/2020 XR, chest completed [address], [address], 01/24/2020 13:37:58 01/20/2020 XR, chest completed [email or web address] Information no t available 01/24/2020 12:48:25 02/18/2020 MRI, brain + brain stem, w/wo contrast completed [address] [facility], [place], [address], 03/05/2020 18:03:36 03/05/2020 PET-CT, skull base to mid-thigh scan completed [address] (Imaging) [address] [place] [address] [address] [facility], [place], [address], 03/05/2020 20:23:44 03/18/2020 NM, bone scan completed [address] [address], [place], [address], 03/19/2020 11:08:17 05/11/2020 fluoroscopy (PROC) completed Information not available 06/04/2020 17:35:41 05/11/2020 XR, chest completed [email or web address] Information no t available 06/04/2020 17:35:56 07/20/2020 CT, chest, w/ contrast completed [address] [facility], [place], [address], 07/29/2020 14:29:30 09/17/2020 CT, chest, w/ contrast completed [address] [facility], [place], [address], 10/07/2020 18:18:43 12/21/2020 CT, chest, w/ contrast completed [address] [place] [address], [address], 12/24/2020 11:13:51 04/05/2021 imaging/diagnos tic result completed [address], [place], [address], 04/26/2021 16:15:38 06/28/2021 CT, angiogram, chest, w/ contrast completed [address], [place], [address], 06/29/2021 09:22:34 09/16/2021 CT, chest, w/ contrast completed [address], [place], [address], 10/04/2021 12:53:12 09/16/2021 CT, chest, w/ contrast completed [address], [place], [address], 10/04/2021 12:53:40 11/23/2021 CT, angiogram, chest, w/ contrast completed [address], [place], [address], 11/25/2021 11:09:08 01/25/2022 CT, angiogram, chest, w/ contrast completed [address], [place], [address], 01/25/2022 14:27:42 05/31/2022 CT, chest, w/ contrast completed [address], [place], [address], 06/07/2022 10:02:02 09/01/2022 CT, abdomen + pelvis, w/ contrast completed [address], [place], [address], 09/06/2022 16:43:15 09/28/2022 CT, chest, w/ contrast completed [address], [place], [address], 10/01/2022 16:09:11 12/27/2022 CT, chest + abdomen + pelvis, w/ contrast completed [address], [place], [address], 12/27/2022 14:15:52 04/03/2023 CT, chest, w/ contrast completed [address], [place], [address], 04/12/2023 05:40:43 06/19/2023 CT, chest, w/ contrast completed [address], [place], [address], 07/07/2023 10:11:02 06/19/2023 CT, chest, w/ contrast completed [address], [place], [address], 07/07/2023 10:13:20 09/25/2023 CT, abdomen + pelvis, w/ contrast completed [address] [address], [place], [address], 10/04/2023 05:18:05 10/12/2023 PET, skull base to mid-thigh completed [address] [facility], [place], [address], 10/16/2023 10:39:34 10/14/2023 XR, chest, 2 view completed [address] [facility], [place], [address], 10/16/2023 10:42:31 10/14/2023 CT, angiogram, chest, w/ contrast completed [address] [facility], [place], [address], 10/16/2023 10:42:52 10/15/2023 US, duplex, venous, lower extremity completed [address] [place] [address], [address], 10/16/2023 10:43:07 10/16/2023 CT, heart, w/o contrast, w/ coronary calcium score completed [address] [place] [address], [address], 10/16/2023 17:48:39 10/18/2023 XR, chest, 2 view completed [address], [place], [address], 10/29/2023 07:39:48 Procedure Notes None recorded. Medical Equipment None Reported. Allergies Allergen ID Allergen Name Allergen Category Reaction Reaction Severity Criticality Documentation Date Start Date Code Code System Note Provider Name and Address Organization Details Recorded Time [id number] sertralin e medicatio n abdominal pain severe Not available 01/28/2020 40314 RxNorm Not Available Not Available Not Available Medications Name Sig Start Date Stop Date Status Note LastModified by Organization Details LastModified Time amoxicillin 500 mg capsule 05/04 completed Not Available Not Available Not Available hydrocodone 5 mg-acetamin ophen 325 mg tablet TAKE 1 TABLET BY MOUTH EVERY 4-6 HOURS NEEDED PAIN 08/18 completed Not Available Not Available Not Available penicillin V potassium 500 mg tablet TAKE 1 TABLET BY MOUTH FOUR TIMES DAILY 08/18 completed Not Available Not Available Not Available aspirin 81 mg tablet,herbert yed release Take 1 tablet every day by oral route. active Not Available Not Available No t Available alprazolam 0.25 mg tablet TAKE 1 TABLET BY MOUTH EVERY 6 TO 8 HOURS NEEDED active Not Available Not Available No t Available potassium chloride ER 20 mEq tablet,exte nded release(par t/cryst) 05/04 completed Not Available Not Available Not Available PreviDent 1.1 % gel 01/27 completed Not Available Not Available Not Available hydrochloro thiazide 12.5 mg capsule Take 1 capsule every day by oral route. 01/27 completed Not Available Not Available Not Available gabapentin 300 mg capsule TAKE 1 CAPSULE BY MOUTH DAILY AT BEDTIME active Not Available Not Available No t Available folic acid 1 mg tablet 05/04 completed Not Available Not Available Not Available hydroxyzine HCl 25 mg tablet Take 1 tablet twice a day by oral route as needed. 05/04 completed Not Available Not Available Not Available lisinopril 5 mg tablet TAKE 1 TABLET BY MOUTH DAILY active Not Available Not Available No t Available methylpredn isolone 4 mg tablets in a dose pack FOLLOW PACKAGE DIRECTION S 06/01 /2023 completed Not Available Not Available Not Available ondansetron 4 mg disintegrat ing tablet DISSOLVE ONE TABLET ON TOP OF TONGUE EVERY 8 HOURS NEEDED FOR NAUSEA /EMESIS 05/04 completed Not Available Not Available Not Available Premarin 1.25 mg tablet 01/27 completed Not Available Not Available Not Available Vitals Date Recorded Body height Provider Name an d Address Organization Details Last Updated DateTime 06/17/2019 172.72 cm Esmer Wallis MA [facility] 0 13:56:48 Date Recorded Body mass index (BMI) Body weight Provider Name and Address Organization Details Last Updated DateTime 06/17/2019 27.5 kg/m2 61991.22 g Esmer Wallis MA [facility] 0 06/17/2019 13:56:50 Date Recorded Body temperature Provider Name a nd Address Organization Details Last Updated DateTime 06/17/2019 98.1 [degF] Esmer Wallis MA [facility] 06/17/19 20 13:56:55 Date Recorded Oxygen saturation Oxygen saturation in Arterial blood by Pulse oximetry Provider Name and Address Organization Details Last Updated DateTime 06/17/2019 96 % 96 % Esmer Wallis MA [facility] 06/17/2019 13:58:59 Date Recorded Heart rate Provider Name an d Address Organization Details Last Updated DateTime 06/17/2019 81 /min Esmer Wallis MA [facility] JANICE 0 13:59:03 Date Recorded Body height Provider Name an d Address Organization Details Last Updated DateTime 01/28/2020 172.72 cm Esmer Wallis MA [facility] 0 12:09:47 Date Recorded Body height Provider Name an d Address Organization Details Last Updated DateTime 05/04/2021 172.72 cm Esmer Wallis MA [place] [facility] 2 15:53:48 Date Recorded Body mass index (BMI) Body weight Provider Name and Address Organization Details Last Updated DateTime 05/04/2021 23 kg/m2 67209.45 g Esmer Wallis [place] 15:57:50 Date Recorded Body temperature Provider Name a nd Address Organization Details Last Updated DateTime 05/04/2021 98.1 [degF] Esmer [place]is [place] 05/04/19 22 15:57:56 Date Recorded Heart rate Provider Name an d Address Organization Details Last Updated DateTime 05/04/2021 108 /min Esmer Wallis [place] [facility] 2 15:58:07 Date Recorded Oxygen saturation Oxygen saturation in Arterial blood by Pulse oximetry Provider Name and Address Organization Details Last Updated DateTime 05/04/2021 99 % 99 % Esmer Wallis [place] 05/04/2021 15:58:10 Date Recorded Body height Provider Name an d Address Organization Details Last Updated DateTime 08/18/2022 172.72 cm Esmer [place]is [place] 12:35:47 Date Recorded Body mass index (BMI) Body weight Provider Name and Address Organization Details Last Updated DateTime 08/18/2022 23.1 kg/m2 22458.04 g Esmer Wallis MA [facility] 0 08/18/2022 12:49:44 Date Recorded Heart rate Provider Name an d Address Organization Details Last Updated DateTime 08/18/2022 101 /min Esmer [place]is [place] 12:50:53 Date Recorded Body temperature Provider Name a nd Address Organization Details Last Updated DateTime 08/18/2022 98.1 [degF] Esmer [place]is [place] 08/19/19 12:50:57 Date Recorded Oxygen saturation Oxygen saturation in Arterial blood by Pulse oximetry Provider Name and Address Organization Details Last Updated DateTime 08/18/2022 98 % 98 % Esmer [place]is [place] [facility] [place] 08/18/2022 12:51:03 Date Recorded Systolic blood pressure Diastolic blood pressure Provider Name and Address Organization Details Last Updated DateTime 06/17/2019 138 mm[Hg] 92 mm[Hg] Esmer [place]is [place] [facility] [place] 06/17/2019 13:59:53 Date Recorded Systolic blood pressure Diastolic blood pressure Provider Name and Address Organization Details Last Updated DateTime 05/04/2021 110 mm[Hg] 60 mm[Hg] Esmer [place]is [place] 05/04/2021 16:00:04 Date Recorded Systolic blood pressure Diastolic blood pressure Provider Name and Address Organization Details Last Updated DateTime 08/18/2022 126 mm[Hg] 78 mm[Hg] Esmer [place]is [place] [facility] 08/18/2022 12:50:49 Social History Question Answer Notes LastModified by Organizat ion Details LastModified Time Tobacco Smoking Status Current Every Day Smoker Esmer Wallis MA null, [facility] 06/17/2019 13:57:04 What Was The Date Of Your Most Recent Tobacco Screening? 08/18/2022 Information not available 08/18/2022 How Much Tobacco Do You Smoke? 1 PPD Information not available 06/17/2019 Has Tobacco Cessation Counseling Been Provided? Yes Information not available 08/18/2022 On What Date Was Tobacco Cessation Counseling Provided? 08/18/2022 Information not available 08/18/2022 How Many Years Have You Smoked Tobacco? 40 Information not available 06/17/2019 Do You Or Have You Ever Used Any Other Forms Of Tobacco Or Nicotine? No Information not available 08/18/2022 Sex: Unknown Functional Status None recorded. Mental Status None recorded. Family History Relationship Description Onset Age of this Age Resolved Age Notes LastModified by Organization Details LastModified Time Mother Heart disease [email or web address] Not available 2019 13:57:26 Mother Hypertensive disorder [email or web address] Not available 2019 13:57:42 Father Heart disease [email or web address] Not available 2019 13:57:26 Father Spinal stenosis [email or web address] Not available 2019 13:57:36 Medical History No medical history recorded. Gynecological HistoryNo gynecological history recorded. Obstetrics History GPAL:G 0 P 0 0 0 0 Past Encounters Encounter ID Performer Location Encounter Start Date Encounter Closed Date Diagnosis/Indication Diagnosis SNOMED-CT Code Diagnosis ICD10 Code Diagnosis Note [id number] [facility] [address] [place] [phone] 06/17/2019 13:44:23 06/18/2019 16:59:43 Essential hypertension 26231030 I10 Newly diagnosed Will start HCTZ 12.5 mg/d Multiple bruising 514836 006 T14.8XXA Palmar erythema 16481369 L53.8 [id number] MD Severiano Butterfield (Adult Med) [address] [place] [phone] 07/15/2019 12:28:58 07/16/2019 16:42:08 Essential hypertension 19462706 I10 Stop HCTZ. Check BP daily. Call in three days. Reevaluate [id number] MD Severiano Butterfield (Adult Med) [address] [place] [address] [phone] 01/28/2020 11:39:06 01/29/2020 11:05:44 Essential hypertension 00318804 I10 Disease of liver 3292923 03 K76.9 Anxiety 03575768 F41.9 [id number] MD Severiano Butterfield (Adult Med) [address] [place] [address] [phone] 05/04/2021 15:50:21 05/05/2021 14:24:36 Essential hypertension 30737835 I10 Cont current regime [id number] [facility] [address] [place] [address] [phone] 08/18/2022 12:33:29 08/19/2022 13:57:28 Essential hypertension 11454093 I10 Cont current regime Labs drawn regularly by oncology Disease of liver 2102225 03 K76.9 Adenocarci noma of lung 555978365 C34.90 F/U oncology as scheduled Health Concerns Section Related Observation LastModified by Organization Detai ls LastModified Time None Recorded Concern Status LastModified by Organization Details LastModified Time None Recorded Advance Directives Directive None Recorded Payers Encounter Date Sequence Insurance Name Policy Number Policy Hensley Covered Member ID Hensley Member ID Guarantor Name 06/17/2019 1 [employer] (POS) [id number] Yessenia Wallis [id number] Yessenia Wallis 07/15/2019 1 [employer] (POS) [id number] Yessenia Wallis [id number] Yessenia Wallis 01/28/2020 1 *SELF PAY* Dayana Wallis 01/28/2020 1 [place] Yessenia Wallis [id number] Yessenia Wallis 05/04/2021 1 [place] Yessenia Wallis [id number] Yessenia Wallis 05/04/2021 [place] [facility] Yessenia Wallis [id number] Yessenia Wallis 08/18/2022 1 [place] Yessenia Wallis [id number] Yessenia Wallis 08/18/2022 [address] [facility] [place]MEDICARE SUPPLE[place]) Yessenia Wallis [id number] Yessenia Wallis Notes Date Note Type Note Provider Name and Address Organization Details Recorded Time 06/17/2019 text/html Concerned about alternating blood pressure readings. Her BP at the dentist's office in Mar was 168/100. She has been checking her BP since then and noticed a mild headache occasionally when the BP is high. Pressure has ranged from 121/77 to175/105. No abnormal sensations Freddy Gallagher MD Attn: [address] [facility], [place], [address], [facility] - [facility] 06/17/2019 15:01:07 07/15/2019 text/html Telephone visit due to Covid-19 precautions. Pt has been unable to tolerate 12.5 mg HCTZ. Feels weak, lightheaded about four hours after med is taken. She takes her BP daily. Systolic averages 130's while diastolic 85 - 92. Freddy Gallagher MD Attn: [address] [place], [address], [facility] - [facility] 07/15/2019 13:09:34 01/28/2020 text/html Telephone visit due to Covid-19 precautions. She is requesting refills on BP meds. Recently diagnosed with non-small cell ca lung. Experiencing anxiety off and on Freddy Gallagher MD Attn: [address] [facility], [place], [address], [place] [facility] 01/28/2020 13:03:03 05/04/2021 text/html Needs refills on BP meds. Currently being treaed for adenoca left lung Freddy Gallagher MD Attn: [address] [place], [address], [place] [facility] 05/04/2021 16:31:53 08/18/2022 text/html Here for regular visit. She feels good Freddy Gallagher MD Attn: [address] [place], [address], [facility] - [facility] 08/18/2022 13:30:20 OBGyn Episode No OBEpisode recorded.
--- OUTSIDE RECORDS SUMMARY | 2024-04-11 10:49 | XMS_ITS | Encounter Summary ---
Author Organization [facility] [employer] Address [address] [place] [address] Care Team Providers Care Automation And Control Engineer Name Role Phone Freddy Gallagher MD Primary Care Provider Reason for Visit * Reason Onset Date Comments Medication Refill 09/05/2022 Encounter Details Date Type Department Care Team ([facility] Contact Info) Description 09/05/2022 Telephone [facility] Oncology and Hematology - [place] [place] [address] Malik Lewis MD [address] [place], [place] [address] [place] [phone] Medication Refill Social History Tobacco Use Types Packs/Day Years Used Date Smoking Tobacco: Every Day Cigarettes 1 40 Smokeless Tobacco: Never Alcohol Use Standard Drinks/Week Comments Yes 0 (1 standard drink = 0.6 oz pur e alcohol) Comments No Sex and Gender Information Value Date Recorded Sex Assigned at Not on file Legal Sex Female 11:18 AM CDT Gender Identity Not on file Sexual Orientation Not on file documented as of this encounter Plan of Treatment Upcoming Encounters Date Type Department Care Team ([facility] Contact Info) Description 05/16/2024 9:15 AM DIE SINKER Office Visit [facility] Oncology and Hematology - [place] [address] [place] [address] Malik Lewis MD [facility] [employer] [address] [place] [phone] documented as of this encounter Visit Diagnoses Not on filedocumented in this encounter Care Teams Automation And Control Engineer Relationship Specialty Start Date End Date Freddy Gallagher MD [address] [place] [phone] PCP - General Gastroenterology 09/24/19 documented as of this encounter
--- OUTSIDE RECORDS SUMMARY | 2024-04-11 10:49 | XMS_ITS | Continuity of Care Document ---
Author Organization [facility] Address [address] [place] [address] Phone Care Team Providers Care Core Machine Tender Name Role Phone Beronica Morgan Unavailable Unavailable Advance Directives Directive Yes / No Effective Date File Name No Information Encounters Encounter Description Practice Location Reason(s) For Visit Diagnoses Date Provider Providers Copied on Encounter [facility], [address], [place], [place], [id number], [place] tel:[phone] [facility] No Information Apr-3 0-200 1 Cathy Loco. [address] , [address], [place], [address], [place]. tel:[phone] Family History Family Member Type Diagnosis Age [...]
--- OUTSIDE RECORDS SUMMARY | 2024-04-11 10:49 | XMS_ITS | Referral Summary ---
Author Organization [facility] Address [address] [place] [address] Care Team Providers Care Marketing Support Manager Name Role Phone Freddy Gallagher MD Primary Care Provider Malik Lewis MD Unavailable [phone] Source Comments [facility],non-owned Affiliates and Associated Physician Practices is amultiple site organization consisting of ambulatory clinics and hospital sitesin [place], [place], [place] and [place]. This disclosure is being madepursuant to the Care Everywhere program and may not contain all information available regarding this patient. Last updated 17.[facility] Allergies No known active allergies Medications * Be aware that medications may not be up to date on this document. Alwaysverify current medications with the patient. Medication Sig Dispensed Refills Start Date End Date Status ascorbic acid (Vitamin C) 500 MG tablet Take 1 (one) tablet by mouth once daily Active ALPRAZolam (Xanax) 0.25 MG tablet Take 1 (one) tablet by mouth 2 times daily 07/06/2023 Active gabapentin (Neurontin) 300 MG capsule Take 1 (one) capsule by mouth at bedtime 07/03/2023 Active docusate sodium (Colace) 50 MG capsule Take 1 (one) capsule by mouth once daily as needed Active amiodarone (Cordarone) 200 MG tablet Take 1 (one) tablet by mouth once daily 10/18/2023 Active furosemide (Lasix) 40 MG tablet Take 1 (one) tablet by mouth once daily 10/18/2023 Active metoprolol succinate XL 24hr (Toprol XL) 25 MG tablet Take 1 (one) tablet by mouth once daily 10/18/2023 Active apixaban (Eliquis) 5 MG tablet Take 1 (one) tablet by mouth 2 times daily Active Active Problems Problem Noted Date Diagnosed Date Non-small cell cancer of left lung 03/27/2020 Elevated SGOT (AST) 11/15/2019 Encounter for screening for lung cancer 11/15/19 20 Erythrocytosis 11/15/2019 Social History Tobacco Use Types Packs/Day Years Used Date Smoking Tobacco: Former Cigarettes Q uit: 10/14/2023 Alcohol Use Standard Drinks/Week Comments Never 0 (1 standard drink = 0.6 oz pur e alcohol) Sex and Gender Information Value Date Recorded Sex Assigned at Not on file Gender Identity Not on file Sexual Orientation Not on file Last Filed Vital Signs Vital Sign Reading Time Taken Comments Blood Pressure 122/73 11/01/2023 3:03 PM CDT Pulse 66 11/01/2023 3:03 PM CDT Temperature 36.6 ??C (97.8 ??F) 11/01/2023 3:03 PM CD T Respiratory Rate 20 02/03/2016 4:24 PM SUBMARINE DIVER Oxygen Saturation 96% 11/01/2023 3:03 PM CDT Inhaled Oxygen Concentration - - Weight 63.2 kg (139 lb 6.4 oz) 11/01/2023 3:03 P M CDT Height 172.7 cm (5' 8 ) 11/01/2023 3:03 PM CDT Body Mass Index 21.2 11/01/2023 3:03 PM CDT Plan of Treatment Upcoming Encounters Date Type Department Care Team (Late st Contact Info) Description 11/07/2024 12:00 PM CDT Office Visit [facility] - [facility] [address] [place] [address] Crissy Kowalski MD [address] [place] [phone] Goals Goal Patient Goal Type Associated Problems Recent Progress Patient-Stated? Author Medication Management General No Maryjane Bazan, RN Note: Expected end date: Ongoing Interventions: Take all medications as prescribed Let your doctor know right away about any changes in your medications Make sure to request a refill of your medication at least one week prior to your last dose Care Teams Marketing Support Manager Relationship Specialty Start Date End Date Freddy Gallagher MD [address] [place] [address] PCP - General 01/28/20 Malik Lewis MD [address] [place] [address] [place] [phone] Medical Oncology 01/11/24
--- OUTSIDE RECORDS SUMMARY | 2024-04-11 10:49 | XMS_ITS | Patient Health Summary ---
Author Organization [facility] Address [address] [place] [address] Care Team Providers Care Imaging Administrator Name Role Phone Freddy Gallagher MD Primary Care Provider [phone] Malik Lewis MD Unavailable [phone] Note from [facility],non-owned Affiliates and Associated Physician Practices is amultiple site organization consisting of ambulatory clinics and hospital sitesin [place], [place], [place] and [place]. This disclosure is being madepursuant to the Care Everywhere program and may not contain all information available regarding this patient. Last updated 17.[facility] Allergies No known active allergies Medications * Be aware that medications may not be up to date on this document. Alwaysverify current medications with the patient. * ascorbic acid (Vitamin C) 500 MG tablet Take 1 (one) tablet by mouth once daily * ALPRAZolam (Xanax) 0.25 MG tablet(Started 07/06/2023) Take 1 (one) tablet by mouth 2 times daily * gabapentin (Neurontin) 300 MG capsule(Started 07/03/2023) Take 1 (one) capsule by mouth at bedtime * docusate sodium (Colace) 50 MG capsule Take 1 (one) capsule by mouth once daily as needed * amiodarone (Cordarone) 200 MG tablet(Started 10/18/2023) Take 1 (one) tablet by mouth once daily * furosemide (Lasix) 40 MG tablet(Started 10/18/2023) Take 1 (one) tablet by mouth once daily * metoprolol succinate XL 24hr (Toprol XL) 25 MG tablet(Started 10/18/2023) Take 1 (one) tablet by mouth once daily * apixaban (Eliquis) 5 MG tablet Take 1 (one) tablet by mouth 2 times daily Active Problems Problem Noted Date Diagnosed Date [...] T Respiratory Rate 20 02/03/2016 4:24 PM ELECTRONICS PROCESSOR Oxygen Saturation 96% 11/01/2023 3:03 PM CDT Inhaled Oxygen Concentration - - Weight 63.2 kg (139 lb 6.4 oz) 11/01/2023 3:03 P M CDT Height 172.7 cm (5' 8 ) 11/01/2023 3:03 PM CDT Body Mass Index 21.2 11/01/2023 3:03 PM CDT Procedures * LAB MISC TEST(Performed 11/01/2023) Performed for High serum aspartate aminotransferase (AST) level, Elevation of levels of liver transaminase levels * COMPREHENSIVE METABOLIC PANEL(Performed 11/01/2023) Performed for High serum aspartate aminotransferase (AST) level * IGM BLOOD(Performed 08/03/2023) Performed for Elevation of levels of liver transaminase levels * IGG BLOOD(Performed 08/03/2023) Performed for Elevation of levels of liver transaminase levels * LAB MISC TEST(Performed 08/03/2023) Performed for Elevation of levels of liver transaminase levels * GGT(Performed 08/03/2023) Performed for Elevated liver function tests, Elevation of levels of liver transaminase levels * CK BLOOD(Performed 08/03/2023) Performed for Elevated liver function tests * COMPREHENSIVE METABOLIC PANEL(Performed 08/03/2023) Performed for Elevated liver function tests * CBC W AUTO DIFFERENTIAL(Performed 08/03/2023) Performed for Elevated liver function tests Results * LAB MISC TEST (11/01/2023 4:30 PM CDT) Only the most recent of2 resultswithin the time period is included. [facility] Test Name Mis Chemistry Test 11/09/2023 10:48 AM CDT Checkout10 Test Result See Scanned Report 11/09/2023 10:48 AM CDT Checkout10 Comment Ref Lab WINTERS 11/09/2023 10:48 AM CDT Checkout10 Blood BLOOD SPECIMEN / Unknown Lab Venipuncture / Unknown 11/01/2023 4:30 PM CDT 11/01/2023 4:58 PM CDT Crissy Kowalski MD LAB SEND OUT [employer] [address] [place] [address] * (ABNORMAL) COMPREHENSIVE METABOLIC PANEL (11/01/2023 4:30 PM CDT) Only the most recent of2 resultswithin the time period is included. [facility] BUN 18 7 - 26 mg/dL 11/01/2023 5:32 PM CDT [facility] Creatinine 1.00(H) 0.56 - 0.96 mg/dL 11/01/2023 5:32 PM [facility] Sodium 137 136 - 145 mmol/L 11/01/2023 5:32 PM [facility] Potassium 4.2 3.5 - 4.5 mmol/L 11/01/2023 5:32 PM [facility] Chloride 97(L) 98 - 107 mmol/L 11/01/2023 5:32 PM [facility] CO2 31(H) 22 - 29 mmol/L 11/01/2023 5:32 PM [facility] Glucose 89 70 - 115 mg/dL 11/01/2023 5:32 PM [facility] Calcium 9.4 8.4 - 10.2 mg/dL 11/01/2023 5:32 PM [facility] Protein Total 6.8 6.0 - 8.3 g/dL 11/01/2023 5:32 PM [facility] Albumin 3.8 3.4 - 5.0 g/dL 11/01/2023 5:32 PM [facility] Bilirubin Total 0.5 0.2 - 1.2 mg/dL 11/01/2023 5:32 PM [facility] Alkaline Phosphatase 86 40 - 150 U/L 11/01/2023 5:32 PM [facility] ALT 15 5 - 55 U/L 11/01/2023 5:32 PM [facility] AST 152(H) 5 - 34 U/L 11/01/2023 5:32 PM [facility] Anion Gap 9 6 - 16 11/01/2023 5:32 PM [facility] BUN/Creatinine Ratio 18 7 - 23 11/01/2023 5:32 PM [facility] Osmolality Calculated 285 275 - 295 mOsm/kg 11/01/2023 5:32 PM [facility] Albumin/Globulin Ratio 1.3 1.1 - 2.3 11/01/2023 5:32 PM [facility] eGFR by CKD-EPI 61(L) >=90 mL/min/1.7 3 m2 11/01/2023 5:32 PM [facility] Blood BLOOD SPECIMEN / Unknown Lab Venipuncture / Unknown 11/01/2023 4:30 PM CDT 11/01/2023 5:03 PM CDT Crissy Kowalski MD LAB - CHEMISTRY LEIGHANN COUCH [address] [address], [facility] [phone] * (ABNORMAL) CBC W/ DIFFERENTIAL (08/03/2023 3:42 PM CDT) WBC 7.1 4.0 - 10.7 x10E9/L 08/03/2023 4:40 PM [facility] RBC Count 5.06 3.90 - 5.20 x10E12/L 08/03/2023 4:40 PM [facility] Hemoglobin 17.2(H) 11.9 - 15.8 g/dL 08/03/2023 4:40 PM [facility] Hematocrit 50.5(H) 34.8 - 46.1 % 08/03/2023 4:40 PM [facility] MCV 99.8(H) 80.0 - 98.0 fL 08/03/2023 4:40 PM [facility] MCH 34.0(H) 26.7 - 33.6 pg 08/03/2023 4:40 PM [facility] MCHC 34.1 31.7 - 36.3 g/dL 08/03/2023 4:40 PM [facility] RDW-CV 14.6 11.3 - 14.8 % 08/03/2023 4:40 PM [facility] Platelet Count 164 150 - 420 x10E9/L 08/03/2023 4:40 PM [facility] MPV 10.9 7.8 - 11.4 fL 08/03/2023 4:40 PM [facility] Neutrophil % 77.9(H) 41.0 - 74.0 % 08/03/2023 4:40 PM [facility] Lymphocyte % 12.1(L) 17.0 - 47.0 % 08/03/2023 4:40 PM [facility] Monocyte % 6.5 3.0 - 11.0 % 08/03/2023 4:40 PM [facility] Eosinophil % 2.4 0.0 - 7.0 % 08/03/2023 4:40 PM [facility] Basophil % 0.8 0.0 - 1.6 % 08/03/2023 4:40 PM [facility] Immature Granulocytes % 0.3 0.0 - 1.0 % 08/03/2023 4:40 PM [facility] Neutrophil Absolute 5.55 1.60 - 7.50 x10E9/L 08/03/2023 4:40 PM CDT [facility] Lymphocyte Absolute 0.86(L) 1.00 - 4.40 x10E9/L 08/03/2023 4:40 PM CDT [facility] Monocyte Absolute 0.46 0.15 - 1.00 x10E9/L 08/03/2023 4:40 PM CDT [facility] Eosinophil Absolute 0.17 0.00 - 0.60 x10E9/L 08/03/2023 4:40 PM CDT [facility] Basophil Absolute 0.06 0.00 - 0.13 x10E9/L 08/03/2023 4:40 PM CDT [facility] Blood BLOOD SPECIMEN / Unknown Lab Venipuncture / Unknown 08/03/2023 3:42 PM CDT 08/03/2023 4:36 PM CDT Crissy Kowalski MD LAB - HEMATOLOGY ORD ERABLES [address] [address], [facility] [phone] * GGT (08/03/2023 3:42 PM CDT) GGT 20 9 - 64 Units/L 08/03/2023 5:04 PM CDT [facility] Blood BLOOD SPECIMEN / Unknown Lab Venipuncture / Unknown 08/03/2023 3:42 PM CDT 08/03/2023 4:36 PM CDT Crissy Kowalski MD LAB - CHEMISTRY ORDE RABABDULLAHI [address] [address], [place] [phone] * (ABNORMAL) CK BLOOD (08/03/2023 3:42 PM CDT) CK Total 17(L) 30 - 200 U/L 08/03/2023 5:04 PM CDT [facility] Blood BLOOD SPECIMEN / Unknown Lab Venipuncture / Unknown 08/03/2023 3:42 PM CDT 08/03/2023 4:36 PM CDT Crissy Kowalski MD LAB - CHEMISTRY LEIGHANN COUCH Performing Organization Address City/[facility]/ZIP Co de Phone Number [address] [address], [place] [phone] * IGM BLOOD (08/03/2023 3:42 PM CDT) IgM 82 37 - 286 mg/dL 08/03/2023 5:00 PM CDT [facility] Blood BLOOD SPECIMEN / Unknown Lab Venipuncture / Unknown 08/03/2023 3:42 PM CDT 08/03/2023 4:32 PM CDT Crissy Kowalski MD LAB - CHEMISTRY LEIGHANN COUCH Performing Organization Address [facility] Co de Phone Number [address] [address], [place] [phone] * IGG BLOOD (08/03/2023 3:42 PM CDT) IgG 828 767 - 1,590 mg/dL 08/03/2023 5:00 PM CDT [facility] Blood BLOOD SPECIMEN / Unknown Lab Venipuncture / Unknown 08/03/2023 3:42 PM CDT 08/03/2023 4:32 PM CDT Crissy Kowalski MD LAB - CHEMISTRY LEIGHANN COUCH Performing Organization Address City/[facility]/ZIP Co de Phone Number [address] [address], [place] [phone] Care Teams Imaging Administrator Relationship Specialty Start Date End Date Freddy Gallagher MD [facility] [place] [address] PCP - General 01/28/20 Malik Lewis MD [address] [place] [phone] Medical Oncology 01/11/24
--- OUTSIDE RECORDS SUMMARY | 2024-04-11 10:49 | XMS_ITS | Encounter Summary ---
Author Organization [email or web address] Address [address] [place] [address] Care Team Providers Care Stitcher Around Name Role Phone Freddy Gallagher MD Primary Care Provider Encounter Details Date Type Department Care Team (Late st Contact Info) Description 03/25/2020 Chart Note [facility] Radiation Therapy [address] [place] [address] [place] [address] [place] [address] Social History Tobacco Use Types Packs/Day Years [...] on file Sexual Orientation Not on file COVID-19 Exposure Response Date Recorded In the last month, have you been in contact with someone who was confirmed or suspected to have Coronavirus / COVID-19? 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 FRONT OFFICE JAVA DEVELOPER documented as of this encounter Plan of Treatment Upcoming Encounters Date Type Department Care Team (Late st Contact Info) Description 05/16/2024 9:15 AM FRONT OFFICE JAVA DEVELOPER Office Visit [facility] Oncology and Hematology - [place] [address] [address] [place] [address] Malik Lewis MD [address] [place] [address] documented as of this encounter Visit Diagnoses Not on filedocumented in this encounter Care Teams Stitcher Around Relationship Specialty Start Date End Date Freddy Gallagher MD [address] [place] [address] PCP - General Gastroenterology 09/24/19 documented as of this encounter
--- OUTSIDE RECORDS SUMMARY | 2024-04-11 10:49 | XMS_ITS | Clinical Summary ---
Author Organization [facility] Address [address] [place] [address] Care Team Providers Care Metal Slitter Name Role Phone Freddy Gallagher MD Primary Care Provider Malik Lewis MD Unavailable Source Comments [facility],non-owned Affiliates and Associated Physician Practices is amultiple site organization consisting of ambulatory clinics and hospital sitesin [place], [place], [place] and [place]. This disclosure is being madepursuant to the Care Everywhere program and may not contain all information available regarding this patient. Last updated 17.[facility] Allergies No known active allergies Medications * [...] T Respiratory Rate 20 02/03/2016 4:24 PM MEAT SUPERVISOR Oxygen Saturation 96% 11/01/2023 3:03 PM CDT [...] - GI [address] [place] [address] Crissy Kowalski MD [address] [facility] [address] [place] [phone] Health Maintenance Due Date Last Done Comments BONE DENSITY TESTING 1954 COLOGUARD (AGES 45-75) - COL ON CA SCREENING 1954 COLON MONITORING 1954 COLONOSCOPY - COLON CA SCREENING 1954 CT COLONOGRAPHY - COLON CA SCREENING 1954 Colorectal Cancer Screening 1954 FIT - COLON CA SCREENING 1954 FLEX SIG - COLON CA SCREENING 1954 LIPID TESTING 1954 MAMMOGRAM 1954 MEDICARE AWV ? 12 MONTHS 1954 HEPATITIS C SCREENING 12/18/1972 DTAP/TDAP/TD VACCINES (1 - Tdap) 1973 PNEUMOCOCCAL VACCINE 50+ (1 of 1 - PCV) 2004 ZOSTER VACCINE (1 of 2) 2004 COVID-19 VACCINE (1 - 2023-2 5 season) 2023 INFLUENZA VACCINE (#1) 2023 DEPRESSION SCREENING 03/20/2024 Respiratory Syncytial Virus (RSV) Vaccine Pt: or over 60 yrs (1 - 1-dose 75+ series) 2029 HEPATITIS B VACCINE Aged Out No longe r eligible based on patient's age to complete this topic HIB VACCINE Aged Out No longer eligi ble based on patient's age to complete this topic HPV VACCINE Aged Out No longer eligi ble based on patient's age to complete this topic MENINGOCOCCAL (Group B) VACCINE Aged Out No longer eligible based on patient's age to complete this topic MENINGOCOCCAL VACCINE Aged Out No susu kurt eligible based on patient's age to complete this topic Goals Goal Patient Goal Type Associated Problems Recent Progress Patient-Stated? Author Medication Management General No Maryjane Bazan, RN Note: Expected end date: Ongoing Interventions: Take all medications as prescribed Let your doctor know right away about any changes in your medications Make sure to request a refill of your medication at least one week prior to your last dose Care Teams Metal Slitter Relationship Specialty Start Date End Date Freddy Gallagher MD [facility] [place] [address] PCP - General 01/28/20 Malik Lewis MD [address] [place] [phone] Medical Oncology 01/11/24
--- OUTSIDE RECORDS SUMMARY | 2024-04-11 10:49 | XMS_ITS | Encounter Summary ---
Author Organization [facility] Address [address] [place] [address] Care Team Providers Care Manager Erp Name Role Phone Freddy Gallagher MD Primary Care Provider Encounter Details Date Type Department Care Team (Late Contact Info) Description 04/02/2024 Orders Only [facility] Oncology and Hematology [facility] [address] [place] [address] Malik Lewis MD [address] [facility] [address] [place] [phone] Social History Tobacco Use Types Packs/Day Years Used Date Smoking Tobacco: Some Days Cigarettes 1 40.5 Started: 10/02/2023 Smokeless Tobacco: Never Alcohol Use Standard Drinks/Week [...] st Contact Info) Description 05/16/2024 9:15 AM JUDO TEACHER Office Visit [facility] Oncology and Hematology - Tadeo Alda Arre[address] [place] [address] Malik Lewis MD [address] [facility] [address] [place] [address] documented as of this encounter Procedures Procedure Name Priority Date/Time Associated Diagnosis Comments COMPREHENSIVE METABOLIC PANEL Routine 04/01/2024 2:06 PM JUDO TEACHER CBC WITH DIFFERENTIAL Routine 04/01/2024 1:42 PM JUDO TEACHER documented in this encounter Results * COMPREHENSIVE METABOLIC PANEL (04/01/2024 2:06 PM JUDO TEACHER) Blood us Malik Lewis MD CHEMISTRY ORDERABLES Final Resu lt * CBC WITH DIFFERENTIAL (04/01/2024 1:42 PM JUDO TEACHER) Blood us Malik Lewis MD HEMATOLOGY ORDERABLES Final Res ult documented in this encounter Visit Diagnoses Not on filedocumented in this encounter Care Teams Manager Erp Relationship Specialty Start Date End Date Freddy Gallagher MD [address] [place] [address] PCP - General Gastroenterology 09/24/19 documented as of this encounter
--- OUTSIDE RECORDS SUMMARY | 2024-04-11 10:49 | XMS_ITS | Clinical Summary ---
Author Organization [facility] Forrest pandey Bennie Address [address] [address] Care Team Providers Care Resident Care Aide Name Role Phone Freddy Gallagher MD Primary Care Provider Allergies No known active allergies Medications acetaminophen (TYLENOL) 325 mg tablet Take 325 mg by mouth every 4 hours as needed. Active lidocaine-lynn locaine (EMLA) 2.5-2.5 % Cream Apply to affected area see administration instructions. 25 Gram 1 021 Active ascorbic acid, vitamin C, (VITAMIN C) 500 mg tablet Take 500 mg by mouth daily. Active apixaban (Eliquis) 5 mg tablet Take 5 mg by mouth 2 times daily. Active metoprolol succinate (TOPROL XL) 25 mg Extended Release 24 hour tablet Take 25 mg by mouth daily in the morning. Active furosemide (LASIX) 40 mg tablet Take 1 Tablet by mouth daily. Active sacubitriL-va lsartan (Entresto) 24-26 mg Tablet Take 1 Tablet by mouth 2 times daily. Active simvastatin (ZOCOR) 20 mg tablet Take 20 mg by mouth daily. 024 Active sotorasib (LUMAKRAS) 320 mg Tablet Take 3 Tablets (960 mg) by mouth daily. 90 Tablet 3 024 Active ALPRAZolam (XANAX) 0.25 mg tabletIndicat ions:Anxiety state TAKE 1 TABLET BY MOUTH EVERY 6 TO 8 HOURS NEEDED 90 Tablet 025 Active gabapentin (NEURONTIN) 300 mg capsuleIndica tions:Non-sma ll cell cancer of left lung (CMS/HCC) TAKE 1 CAPSULE BY MOUTH DAILY AT BEDTIME 30 Capsule 2 01/15/2 025 Active gabapentin (NEURONTIN) 300 mg capsuleIndica tions:Non-sma ll cell cancer of left lung (CMS/HCC) Take 1 capsule by mouth daily at bedtime. 30 Capsule 2 024 2024 Discontinued ALPRAZolam (XANAX) 0.25 mg tabletIndicat ions:Anxiety state TAKE 1 TABLET BY MOUTH EVERY 6 TO 8 HOURS NEEDED 90 Tablet 024 2024 Discontinued(R eorder) Active Problems Problem Noted Date Diagnosed Date Non-small cell cancer of left lung 03/27/2020 Erythrocytosis 11/15/2019 Encounter for screening for lung cancer 11/15/19 Elevated SGOT (AST) 11/15/2019 Encounters Date Type Department Care Team Description 04/08/2024 Abstract [facility] Oncology and Hematology - [place] [address] [place] [phone] Malik Lewis MD 04/08/2024 Orders Only [facility] Oncology and Hematology [facility] [address] [place] [phone] Scanning, Provider 04/02/2024 4:30 PM MOBILE LOUNGE DRIVER OR OPERATOR Telephone Check Up [facility] Oncology and Hematology [facility] [address] [place] [phone] Malik Lewis MD Non-small cell cancer of left lung (CMS/HCC) (Primary Dx) 04/02/2024 External Device Data STL ABSTRACTION Provider, Abstract 04/02/2024 Refill [facility] Oncology and Hematology [facility] [address] [place] [address] Malik Lewis MD Non-small cell cancer of left lung (CMS/HCC) 04/02/2024 Orders Only [facility] Oncology and Hematology - [place] [address] [place] [address] Malik Lewis MD 03/29/2024 Orders Only [facility] Oncology and Hematology - [place] [address] [place] [address] Malik Lewis MD 03/28/2024 Refill [facility] Oncology and Hematology - [place] [address] Malik Lewis MD Anxiety state 03/28/2024 Orders Only [facility] Oncology and Hematology - [place] [address] [place] [phone] Malik Lewis MD 03/05/2024 Refill [facility] Oncology and Hematology - [place] [address] [place] [phone] Malik Lewis MD 02/20/2024 Orders Only [facility] Oncology and Hematology - [place] Bennie [address] Malik Lewis MD 02/19/2024 9:00 AM MOBILE LOUNGE DRIVER OR OPERATOR Office Visit [facility] Oncology and Hematology - [place] Bennie [address] [place] [phone] Malik Lewis MD Non-small cell cancer of left lung (CMS/HCC) (Primary Dx) 02/14/2024 Refill [facility] Oncology and Hematology - [place] [address]ie [address] [place] [phone] Malik Lewis MD Anxiety state 01/22/2024 Telephone [facility] Oncology and Hematology - [place] Alda [address] [place] [phone] Malik Lewis MD Research facility missed call from Last 3 Months Family History Medical History Relation Name Comments Cancer Father Heart Disease Father Cancer Mother Heart Disease Mother Relation Name Status Comments Brother Alive Father Mother Sister Alive Social History Tobacco Use Types Packs/Day Years Used Date Smoking Tobacco: Some Days Cigarettes 1 40.5 Started: 10/02/2023 Smokeless Tobacco: Never Tobacco Cessation:Ready to Q uit: Not Asked; Counseling Given: Not Answered Alcohol Use Standard Drinks/Week Comments Yes 0 (1 standard drink = 0.6 oz pur e alcohol) Comments No Sex and Gender Information Value Date Recorded Sex Assigned at Not on file Legal Sex Female 11:18 AM CDT Gender Identity Not on file Sexual Orientation Not on file Last Filed Vital Signs Vital Sign Reading Time Taken Comments Blood Pressure 129/76 02/19/2024 8:45 AM MOBILE LOUNGE DRIVER OR OPERATOR Pulse 71 02/19/2024 8:45 AM MOBILE LOUNGE DRIVER OR OPERATOR Temperature 36.4 ??C (97.6 ??F) 02/19/2024 8:45 AM CS T Respiratory Rate 16 02/19/2024 8:45 AM MOBILE LOUNGE DRIVER OR OPERATOR Oxygen Saturation 94% 02/19/2024 8:45 AM MOBILE LOUNGE DRIVER OR OPERATOR Inhaled Oxygen Concentration - - Weight 72.5 kg (159 lb 12.8 oz) 02/19/2024 8:45 AM MOBILE LOUNGE DRIVER OR OPERATOR Height 172.7 cm (5' 8 ) 01/10/2022 10:3 3 AM CDT Body Mass Index 24.3 01/10/2022 10:33 AM CDT Plan of Treatment Upcoming Encounters Date Type Department Care Team (Late st Contact Info) Description 05/16/2024 9:15 AM MOBILE LOUNGE DRIVER OR OPERATOR Office Visit [facility] Oncology and Hematology - [place] [address] [facility] [address] [place] [address] Malik Lewis MD [address] [facility] [address] [place] [address] Health Maintenance Due Date Last Done Comments DTAP/TDAP/TD VACCINES (1 - Tdap) 1973 PNEUMOCOCCAL VACCINE 65+ YEARS (1 of 2 - PCV) 12/23/18 74 Traditional Medicare (O) Annual Wellness Visit 12/23 BREAST CANCER SCREENING 1994 COLORECTAL SCREENING 12/24/1999 Colorectal Cancer Screening 12/24/1999 FIT-DNA Q 3 years 12/24/1999 FIT/FOBT Q 1 year 12/24/1999 Flex Sig/CT Colonography Q 5 years 12/24/1999 ZOSTER VACCINE (1 of 2) 2004 OSTEOPOROSIS SCREENING 12/24/2019 INFLUENZA VACCINE (#1) 2023 RSV VACCINE (60+ or ) (1 - 1-dose 75+ series) 2029 Procedures Procedure Name Priority Date/Time Associated Diagnosis Comments COMPREHENSIVE METABOLIC PANEL Routine 04/07/2024 11:39 AM MOBILE LOUNGE DRIVER OR OPERATOR URINE CULTURE Routine 04/07/2024 11:34 AM MOBILE LOUNGE DRIVER OR OPERATOR COMPREHENSIVE METABOLIC PANEL Routine 04/01/2024 2:06 PM MOBILE LOUNGE DRIVER OR OPERATOR CBC WITH DIFFERENTIAL Routine 04/01/2024 1:42 PM MOBILE LOUNGE DRIVER OR OPERATOR CT CHEST W CONTRAST Routine 03/25/2024 1 :11 PM MOBILE LOUNGE DRIVER OR OPERATOR CREATININE Routine 03/25/2024 12:47 PM MOBILE LOUNGE DRIVER OR OPERATOR COMPREHENSIVE METABOLIC PANEL Routine 02/19/2024 11:44 AM MOBILE LOUNGE DRIVER OR OPERATOR CBC WITH DIFFERENTIAL Routine 02/19/2024 11:04 AM MOBILE LOUNGE DRIVER OR OPERATOR from Last 3 Months Results * COMPREHENSIVE METABOLIC PANEL (04/07/2024 11:39 AM MOBILE LOUNGE DRIVER OR OPERATOR) Only the most recent of3 resultswithin the time period is included. Blood us Malik Lewis MD CHEMISTRY ORDERABLES Final Resu lt * URINE CULTURE (04/07/2024 11:34 AM MOBILE LOUNGE DRIVER OR OPERATOR) Urine Provider Scanning MICROBIOLOGY - GENERAL ORDERAB LES Final Result * CBC WITH DIFFERENTIAL (04/01/2024 1:42 PM MOBILE LOUNGE DRIVER OR OPERATOR) Only the most recent of2 resultswithin the time period is included. Blood us Malik Lewis MD HEMATOLOGY ORDERABLES Final Res ult * CT CHEST W CONTRAST (03/25/2024 1:11 PM MOBILE LOUNGE DRIVER OR OPERATOR) Anatomical Region Laterality Modality Chest Other us Malik Lewis MD CT ORDERABLES Final Result * CREATININE (03/25/2024 12:47 PM MOBILE LOUNGE DRIVER OR OPERATOR) Blood Malik Lewis MD CHEMISTRY ORDERABLES Final Resu lt from Last 3 Months Insurance MEDICARE PART A AND B [employer] Medicare Part D Care Teams Resident Care Aide Relationship Specialty [place] [address] [place] [phone] PCP - General Gastroenterology 09/24/19
== END 2024-04-07 18:05 | disposition home or self-care (01) ==
PROVIDERS: Emergency Provider Preventive Medicine Aerospace Medicine; PCP Internal Medicine Hematology & Oncology
DX: M94.0 Chondrocostal junction syndrome [Tietze] (principal); S39.011A Strain of muscle, fascia and tendon of abdomen, initial encounter; R93.7 Abnormal findings on diagnostic imaging of other parts of musculoskeletal system; I10 Essential (primary) hypertension; F41.9 Anxiety disorder, unspecified; F17.210 Nicotine dependence, cigarettes, uncomplicated; Z66 Do not resuscitate; Z85.118 Personal history of other malignant neoplasm of bronchus and lung; Z92.3 Personal history of irradiation; Z92.21 Personal history of antineoplastic chemotherapy; Z90.710 Acquired absence of both cervix and uterus; Z90.49 Acquired absence of other specified parts of digestive tract; X50.0XXA Overexertion from strenuous movement or load, initial encounter
CPT/HCPCS: 36415; 71046; 71110; 80053; 81001; 83690; 85025; 96374; 99284; A9270; J1885

== ENCOUNTER 2024-06-20 06:32 | Outpatient (CLI) | payer MEDICARE, OTHER, SELFPAY ==
--- NOTE | ~2024-06-20 | CT_ITS ---
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 Dose reduction technique was used on this scan by utilizing automated exposu re control and iterative reconstruction technique. The dose-length product (DLP) was 154.06 mGy-cm. COMPARISON: 03/25/2024 Findings: There is no evidence of any significant mediastinal, hilar or axillary lymphadenopathy. There is no f illing defect in the pulmonary arterial tree to suggest pulmonary embolus. There is no evidence of ao rtic dissection or aneurysm. There is no evidence of pleural or pericardial effusion. Moderate emphysema present. Anteromedial left upper lobe pulmonary nodule measures 1.5 cm similar to prior exam (axial image 42). Probable 3.7 cm left upper lobe mass abutting the fissure with adjacent consolidation, similar overall to prior exam (axial image 67). Additional 4 mm lingular nodules uncha nged (axial image 76). Left lower lobe pulmonary nodules (axial images 82, 88, 91, 103) are stable fr om prior exam. Stable 9 mm right lower lobe nodule (axial image 101). Stable additional 8 mm pleural- based nodule medial right lower lobe (axial image 82). Images through the upper abdomen reveal no abnormalities. There is new severe compression fracture deformity of T10. There is new mild compression fracture for a T9. Impression: Dominant 3.7 cm left upper lobe mass with adjacent consolidation, with numerous additional bilateral pulmonary nodules, as detailed above. These finds are similar to prior exam, compatible with neoplast ic/metastatic disease. New severe compression fracture deformity of T10 with new mild compression fracture of T9. Reviewed, dictated and finalized at [facility]. Impression: Dominant 3.7 cm left upper lobe mass with adjacent consolidation, with numerous additional bilateral pulmonary nodules, as detailed above. These finds are sim ilar to prior exam, compatible with neoplastic/metastatic disease. New severe compression fracture deformity of T10 with new mild compression frac ture of T9.
--- OUTSIDE RECORDS SUMMARY | 2024-06-20 06:35 | XMS_ITS | Encounter Summary ---
Author Organization [facility] [employer] Address [address] [place] [address] Care Team Providers Care Front Edger Name Role Phone Freddy Gallagher MD Primary Care Provider Reason for Visit * Reason Onset Date Comments Medication Refill 09/05/2022 Encounter Details Date Type Department Care Team ([facility] Contact Info) Description 09/05/2022 Telephone [facility] Oncology and Hematology - [place] [address] [place] [address] Malik Lewis MD [address] [place], [place] [address] [address] [place] [address] Medication Refill Social History Tobacco Use [...] Care Team ([facility] Contact Info) Description 07/04/2024 2:00 PM CDT Office Visit [facility] Oncology and Hematology - [place] [address] [place] [address] Malik Lewis MD [facility] [employer] [address] [place] [address] documented as of this encounter Visit Diagnoses Not on filedocumented in this encounter Care Teams Front Edger Relationship Specialty Start Date End Date Freddy Gallagher MD [address] [place] [phone] PCP - General Gastroenterology 09/24/19 05/15/24 documented as of this encounter
--- OUTSIDE RECORDS SUMMARY | 2024-06-20 06:35 | XMS_ITS | Encounter Summary ---
Author Organization [facility] Address [address] [place] [address] Care Team Providers Care Supervisor Doping Name Role Phone Freddy Gallagher MD Primary Care Provider Encounter Details Date Type Department Care Team (Late st Contact Info) Description 03/25/2020 Chart Note [facility] Radiation Therapy [address] [place] [address] [place] [address] [place] [address] Social History Tobacco Use Types [...] COVID-19? 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 ARTIFICIAL FLOWERS DYER documented as of this encounter Plan of Treatment Upcoming Encounters Date Type Department Care Team (Late st Contact Info) Description 07/04/2024 2:00 PM CDT Office Visit [facility] Oncology and Hematology - [place] [address] [facility] [address] [place] [address] Malik Lewis MD [address] [facility] [address] [place] [address] documented as of this encounter Visit Diagnoses Not on filedocumented in this encounter Care Teams Supervisor Doping Relationship Specialty Start Date End Date Freddy Gallagher MD [address] [place] [address] PCP - General Gastroenterology 09/24/19 05/15/24 documented as of this encounter
--- OUTSIDE RECORDS SUMMARY | 2024-06-20 06:35 | XMS_ITS | Clinical Summary ---
Author Organization [facility] Forrest pandey Roshniferedward Address [address] [place] [address] Care Team Providers Care Refrigeration Service Technician Name Role Phone Unavailable Primary Care Provider Unavailabl e Allergies No known active allergies Medications acetaminophen (TYLENOL) 325 mg tablet Take 325 mg by mouth every 4 hours as needed. Active lidocaine-pril ocaine (EMLA) 2.5-2.5 % Cream Apply to affected area see administration instructions. 25 Gram 1 1 Active ascorbic acid, vitamin C, (VITAMIN C) 500 mg tablet Take 500 mg by mouth daily. Active apixaban (Eliquis) 5 mg tablet Take 5 mg by mouth 2 times daily. Active metoprolol succinate (TOPROL XL) 25 mg Extended Release 24 hour tablet Take 25 mg by mouth daily in the morning. 4 Active furosemide (LASIX) 40 mg tablet Take 1 Tablet by mouth daily. 4 Active sacubitriL-tonny sartan (Entresto) 24-26 mg Tablet Take 1 Tablet by mouth 2 times daily. Active simvastatin (ZOCOR) 20 mg tablet Take 20 mg by mouth daily. 4 Active sotorasib (LUMAKRAS) 320 mg Tablet Take 3 Tablets (960 mg) by mouth daily. 90 Tablet 3 4 Active gabapentin (NEURONTIN) 300 mg capsuleIndicat ions:Non-small cell cancer of left lung (CMS/HCC) TAKE 1 CAPSULE BY MOUTH DAILY AT BEDTIME 30 Capsule 2 5 Active ALPRAZolam (XANAX) 0.25 mg tabletIndicati ons:Anxiety state TAKE 1 TABLET BY MOUTH EVERY 6 TO 8 HOURS NEEDED 90 Tablet 5 Active OTHER 2 times daily. CBD pain relief cream Active lidocaine (LIDODERM) 5 % Adhesive Patch, Medicated Apply 1 Patch to affected area every 24 hours. Active HYDROcodone-ac etaminophen (NORCO) 5-325 mg tabletIndicati ons:Non-small cell cancer of left lung (CMS/HCC) Take 1 Tablet by mouth every 4 hours as needed for Pain, Moderate. Max Daily Amount: 6 Tablets 20 Tablet 5 Active naloxone (NARCAN) 4 mg/spray [place], Non-Aerosol EMERGENCY USE ONLY: Administer 1 spray (4 mg) in one nostril one time. May repeat in alternating nostrils every 2-3 min until responsive or EMS arrives. 2 Each 3 5 Active Active Problems Problem Noted Date Diagnosed Date Non-small cell cancer of left lung 03/27/2020 Erythrocytosis 11/15/2019 Encounter for screening for lung cancer 11/15/19 20 Elevated SGOT (AST) 11/15/2019 Encounters Date Type Department Care Team Description 05/27/2024 Orders Only [facility] Oncology [facility] Hematology [facility] [address] [place] [address] Malik Lewis MD 05/21/2024 External Device Data STL ABSTRACTION Provider, Abstract 05/16/2024 9:15 AM NURSING PROGRAM COORDINATOR Office Visit [facility] Oncology [facility] Hematology [facility] [address] [place] [address] Malik Lewis MD Non-small cell cancer of left lung (CMS/HCC) (Primary Dx) 05/13/2024 Refill [facility] Oncology and Hematology [facility] [address] [place] [address] Malik Lewis MD Anxiety state 05/12/2024 Refill [facility] Oncology and Hematology [facility] [address] [place] [address] Malik Lewis MD Anxiety state 05/10/2024 Abstract [facility] Oncology [facility] Hematology [facility] [address] [place] [address] Malik Lewis MD 05/08/2024 External Device Data STL ABSTRACTION Provider, Abstract 05/08/2024 External Device Data STL ABSTRACTION Provider, Abstract 04/16/2024 External Device Data STL ABSTRACTION Provider, Abstract 04/08/2024 Abstract [facility] Oncology and Hematology - [place] [address] [place] [phone] Malik Lewis MD 04/08/2024 Orders Only [facility] Oncology and Hematology - [place] [address] [place] [address] Scanning, Provider 04/02/2024 4:30 PM NURSING PROGRAM COORDINATOR Telephone Check Up [facility] Oncology and Hematology - [place] [address] [place] [address] Malik Lewis MD Non-small cell cancer of left lung (CMS/HCC) (Primary Dx) 04/02/2024 External Device Data STL ABSTRACTION Provider, Abstract 04/02/2024 Refill [facility] Oncology and Hematology - [place] [address] [place] [phone] Malik Lewis MD Non-small cell cancer of left lung (CMS/HCC) 04/02/2024 Orders Only [facility] Oncology and Hematology - [place] [address] Malik Lewis MD 03/29/2024 Orders Only [facility] Oncology and Hematology - [place] [address] Malik Lewis MD 03/28/2024 Refill [facility] Oncology and Hematology - [place] [address] Malik Lewis MD Anxiety state 03/28/2024 Orders Only [facility] Oncology and Hematology - [place] [address] Malik Lewis MD from Last 3 Months Family History Medical History Relation Name Comments Cancer Father Heart Disease Father Cancer Mother Heart Disease Mother Relation Name Status Comments Brother Alive Father Mother Sister Alive Social History Tobacco Use Types Packs/Day Years Used Date Smoking Tobacco: Some Days Cigarettes 1 40.7 Started: 10/02/2023 Smokeless Tobacco: Never Tobacco Cessation:Ready [...] Sign Reading Time Taken Comments Blood Pressure 127/85 05/16/2024 9:33 AM NURSING PROGRAM COORDINATOR Pulse 83 05/16/2024 9:27 AM NURSING PROGRAM COORDINATOR Temperature 36.9 C (98.5 F) 05/16/2024 9:27 AM NURSING PROGRAM COORDINATOR Respiratory Rate 15 05/16/2024 9:27 AM NURSING PROGRAM COORDINATOR Oxygen Saturation 94% 05/16/2024 9:27 AM NURSING PROGRAM COORDINATOR Inhaled Oxygen Concentration - - Weight 68.7 kg (151 lb 6.4 oz) 05/16/2024 9:27 A M NURSING PROGRAM COORDINATOR Height 172.7 cm (5' 8 ) 01/10/2022 10:33 AM CDT Body Mass Index 23.02 01/10/2022 10:33 AM CDT Plan of Treatment Upcoming Encounters Date Type Department Care Team (Late st Contact Info) Description 07/04/2024 2:00 PM CDT Office Visit [facility] Oncology and Hematology [facility] [address] [place] [address] [facility] [address] [place] [address] Malik Lewis MD [address] [facility] [address] [place] [address] Health Maintenance Due Date Last Done Comments DTAP/TDAP/TD VACCINES (1 - Tdap) 1973 PNEUMOCOCCAL VACCINE 50+ YEARS (1 of 2 - PCV) 12/23/18 74 Traditional Medicare (ACO) Annual Wellness Visit 12/23 BREAST CANCER SCREENING [...] Procedure Name Priority Date/Time Associated Diagnosis Comments CBC WITH DIFFERENTIAL Routine 05/14/2024 4:26 PM NURSING PROGRAM COORDINATOR COMPREHENSIVE METABOLIC PANEL Routine 04/07/2024 11:39 AM NURSING PROGRAM COORDINATOR URINE CULTURE Routine 04/07/2024 11:34 AM NURSING PROGRAM COORDINATOR COMPREHENSIVE METABOLIC PANEL Routine 04/01/2024 2:06 PM NURSING PROGRAM COORDINATOR CBC WITH DIFFERENTIAL Routine 04/01/2024 1:42 PM [address] PROGRAM COORD[address] CT CHEST W CONTRAST Routine 03/25/2024 1 :11 PM NURSING PROGRAM COORDINATOR CREATININE Routine 03/25/2024 12:47 PM NURSING PROGRAM COORDINATOR from Last 3 Months Results * CBC WITH DIFFERENTIAL (05/14/2024 4:26 PM NURSING PROGRAM COORDINATOR) Only the most recent of2 resultswithin the time period is included. Blood Malik Lewis MD HEMATOLOGY ORDERABLES Final Res ult * COMPREHENSIVE METABOLIC PANEL (04/07/2024 11:39 AM NURSING PROGRAM COORDINATOR) Only the most recent of2 resultswithin the time period is included. Blood Malik Lewis MD CHEMISTRY ORDERABLES Final Resu lt * URINE CULTURE (04/07/2024 11:34 AM NURSING PROGRAM COORDINATOR) Urine us Provider Scanning MICROBIOLOGY - GENERAL ORDERAB LES Final Result * CT CHEST W CONTRAST (03/25/2024 1:11 PM NURSING PROGRAM COORDINATOR) Anatomical Region Laterality Modality Chest Computed Tomogra phy us Malik Lewis MD CT ORDERABLES Final Result * CREATININE (03/25/2024 12:47 PM NURSING PROGRAM COORDINATOR) Blood Malik Lewis MD CHEMISTRY ORDERABLES Final Resu lt from Last 3 Months Insurance MEDICARE PART A AND B [facility] RX [employer] Medicare Part D
--- OUTSIDE RECORDS SUMMARY | 2024-06-20 06:35 | XMS_ITS | Referral Summary ---
Author Organization [facility] [address] [facility] [address] Address [address] [place] [address] Care Team Providers Care Bosom Presser Name Role Phone Freddy Gallagher MD Primary Care Provider Encounters Date Type Department Care Team Description 05/21/2024 10:45 AM DUMP ATTENDANT Office Visit [facility] Cardiology at [address] [place] [address] Regan Peraza MD HFrEF (heart failure with reduced ejection fraction) (HCC) (Primary Dx); Dilated cardiomyopathy (HCC); Paroxysmal atrial fibrillation (HCC) from Last 3 Months Allergies Active Allergy Reactions Criticality Noted Date Comments Pentazocine Itching Low 11/14/2023 Medications ALPRAZolam (XANAX) 0.25 mg tablet TAKE 1 TABLET BY MOUTH EVERY 6 TO 8 HOURS NEEDED Active ascorbic acid 500 mg tablet,chewable Take 1 tablet/chew tab (500 mg total) by mouth daily Active gabapentin (NEURONTIN) 300 mg capsule TAKE 1 CAPSULE BY MOUTH DAILY AT BEDTIME Active sotorasib (LUMAKRAS) 320 mg tablet Take 3 tablets (960 mg total) by mouth daily 11/15/19 24 Active simvastatin (ZOCOR) 20 mg tabletIndications: Lipid screening,Coronary artery disease involving [place] coronary artery of [place] heart without angina pectoris Take 1 tablet (20 mg total) by mouth nightly 30 tablet 11 01/10/20 24 025 Active metoprolol XL (TOPROL-XL) 25 mg extended release tablet TAKE 1 TABLET(25 MG) BY MOUTH EVERY MORNING 90 tablet 3 02/12/20 24 Active sacubitriL-valsart an (Entresto) 24-26 mg tabletIndications: Dilated cardiomyopathy (HCC) TAKE 1 TABLET BY MOUTH TWICE DAILY 180 tablet 1 03/26/19 25 Active Eliquis 5 mg tablet TAKE 1 TABLET(5 MG) BY MOUTH EVERY 12 HOURS 180 tablet 1 06/12/19 25 Active Eliquis 5 mg tablet Take 1 tablet (5 mg total) by mouth every 12 (twelve) hours 180 tablet 1 12/14/19 24 025 Discontinued Active Problems Problem Noted Date Diagnosed Date Hospital discharge follow-up 11/29/2023 HFrEF (heart failure with reduced ejection fract ion) 11/29/2023 Dilated cardiomyopathy 11/29/2023 Paroxysmal atrial fibrillation 11/29/2023 Social History Tobacco Use Types Packs/Day Years Used Date Smoking Tobacco: Former Cigarettes Smokeless Tobacco: Never Tobacco Cessation:Counseling Given: Not Answered Comments Unknown Sex and Gender Information Value Date Recorded Sex Assigned at Not on file Legal Sex Female 6:00 AM DUMP ATTENDANT Gender Identity Not on file Sexual Orientation Not on file Last Filed Vital Signs Vital Sign Reading Time Taken Comments Blood Pressure 128/82 05/21/2024 10:59 AM DUMP ATTENDANT Pulse 86 05/21/2024 10:59 AM DUMP ATTENDANT Temperature - - Respiratory Rate - - Oxygen Saturation 90% 05/21/2024 10:59 AM DUMP ATTENDANT Inhaled Oxygen Concentration - - Weight 68.9 kg (152 lb) 05/21/2024 10:59 AM DUMP ATTENDANT Height 172.7 cm (5' 8 ) 05/21/2024 10:59 AM DUMP ATTENDANT Body Mass Index 23.11 05/21/2024 10:59 AM DUMP ATTENDANT Plan of Treatment Not on file Insurance MEDICARE [employer] Care Teams Bosom Presser Relationship Specialty Start Date End Date Freddy Gallagher MD [address] [address] PCP - General Gastroenterology 10/14/23
--- OUTSIDE RECORDS SUMMARY | 2024-06-20 06:35 | XMS_ITS | Continuity of Care Document ---
Author Organization [facility] Address [address] [place] [address] Phone Care Team Providers Care Tire Servicer Name Role Phone Beronica Morgan Unavailable Unavailable Advance Directives Directive Yes / No Effective Date File Name No Information Encounters Encounter Description Practice Location Reason(s) For Visit Diagnoses Date Provider Providers Copied on Encounter [facility], [address], [place], [place], [id number], [place] tel:[phone] [facility] No Information Apr-3 0-200 1 Cathy Loco. [address] [facility] , [address], [place], [address], [place]. tel:[phone] Family History Family Member Type Diagnosis Age [...]
--- OUTSIDE RECORDS SUMMARY | 2024-06-20 06:35 | XMS_ITS | Clinical Summary ---
Author Organization [facility] Address [address] [place] [address] Care Team Providers Care Landcare Facilitator Name Role Phone Freddy Gallagher MD Primary Care Provider [phone] Malik Lewis MD Unavailable [phone] Source Comments [facility],non-owned Affiliates and Associated Physician Practices is amultiple site organization consisting of ambulatory clinics and hospital sitesin [place], [place], [place] and [place]. This disclosure is being madepursuant to the Care Everywhere program and may not contain all information available regarding this patient. Last updated 17.[facility] Allergies No known active allergies Medications * [...] 65 11/01/2023 3:03 PM CDT Temperature 36.6 C (97.8 F) 11/01/2023 3:03 PM CDT Respiratory Rate 20 02/03/2016 4:24 PM SPECIAL SHOPPER Oxygen Saturation 96% 11/01/2023 3:03 PM CDT [...] Visit [facility] [address] [place] [address] Crissy Kowalski MD [address] [place] [id number] Health Maintenance Due Date Last Done Comments BONE DENSITY TESTING 1954 COLOGUARD (AGES 45-75) - COL ON CA SCREENING 1954 COLON MONITORING 1954 COLONOSCOPY - COLON CA SCREENING 1954 CT COLONOGRAPHY - COLON CA SCREENING 1954 Colorectal Cancer Screening 1954 FIT - COLON CA SCREENING 1954 FLEX SIG - COLON CA SCREENING 1954 MAMMOGRAM 1954 MEDICARE AWV 12 MONTHS 1954 HEPATITIS C SCREENING 12/18/1972 DTAP/TDAP/TD VACCINES (1 - Tdap) 1973 PNEUMOCOCCAL VACCINE 50+ (1 of 1 - PCV) 2004 ZOSTER VACCINE (1 of 2) 2004 COVID-19 VACCINE (1 - 2023-2 5 season) 2023 INFLUENZA VACCINE (#1) 2023 DEPRESSION SCREENING 03/20/2024 LIPID TESTING 01/09/2029 01/10/2024 Respiratory Syncytial Virus (RSV) Vaccine Pt: or [...] to complete this topic MENINGOCOCCAL (Group B) VACC INE SHARED DECISION-MAKING Aged Out No longer eligibl e based on patient's age to complete this topic MENINGOCOCCAL GROUPS A/C/Y/W VACCINE Aged Out No longer eligible b ased on patient's age to complete this topic [...] prior to your last dose Care Teams Landcare Facilitator Relationship Specialty Start Date End Date Freddy Gallagher MD [address] [place] [phone] PCP - General 01/28/20 [place] [address] [place] [phone] Medical Oncology 01/11/24
--- OUTSIDE RECORDS SUMMARY | 2024-06-20 06:35 | XMS_ITS | Clinical Summary ---
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 pectoris Take 1 tablet [...] Dilated cardiomyopathy 11/29/2023 Paroxysmal atrial fibrillation 11/29/2023 Encounters Date Type Department Care Team Description 05/21/2024 10:45 AM CREEL CLERK Office Visit [facility] Cardiology at [address] [place] [address] Regan Peraza MD HFrEF (heart failure with reduced ejection fraction) (HCC) (Primary Dx); Dilated cardiomyopathy (HCC); Paroxysmal atrial fibrillation (HCC) from Last 3 Months Surgical History Surgery Date Site/Laterality Comments TONSILLECTOMY Bilateral HYSTERECTOMY CHOLECYSTECTOMY Medical History Medical History Date Comments Hypertension Cardiac rhythm disturbance COPD (chronic obstructive pulmonary disease) (HC C) Family History Medical History Relation Name Comments Blood Clot Sister Relation Name Status Comments Father Mother Sister Social History Tobacco Use Types Packs/Day Years Used Date Smoking Tobacco: Former Cigarettes Smokeless Tobacco: Never Tobacco Cessation:Counseling Given: Not Answered Comments Unknown Sex and Gender Information Value Date Recorded Sex Assigned at Not on file Legal Sex Female 6:00 AM CREEL CLERK Gender Identity Not on file Sexual Orientation Not on file Obstetrics History Last Filed Vital Signs Vital Sign Reading Time Taken Comments Blood Pressure 128/82 05/21/2024 10:59 AM CREEL CLERK Pulse 86 05/21/2024 10:59 AM CREEL CLERK Temperature - - Respiratory Rate - - Oxygen Saturation 90% 05/21/2024 10:59 AM CREEL CLERK Inhaled Oxygen Concentration - - Weight 68.9 kg (152 lb) 05/21/2024 10:59 AM CREEL CLERK Height 172.7 cm (5' 8 ) 05/21/2024 10:59 AM CREEL CLERK Body Mass Index 23.11 05/21/2024 10:59 AM CREEL CLERK Plan of Treatment Health Maintenance Due Date Last Done Comments Breast Cancer Screening-Mammogram 1954 Colon Cancer Screening-Colonoscopy 1954 Depression Screening 1954 Fall Risk Assessment 1954 Hepatitis C Screening 1954 Osteoporosis Screening-Bone Density Scan 1954 DTaP/Tdap/Td Vaccine (1 - Tdap) 1965 Hepatitis B Screening 1972 Pneumococcal vaccine 65+ (1 of 2 - PCV) 1973 Zoster Vaccine (1 of 2) 1973 Well Visit 65+ 12/24/2019 Influenza Vaccine Completed 11/22/2023, , 12/30/2021, Additional history exists Insurance [facility] Care Teams Accounting Manager Cpa Relationship Specialty Start Date End Date Freddy Gallagher MD [address] [place] [id number] PCP - General Gastroenterology 10/14/23
--- OUTSIDE RECORDS SUMMARY | 2024-06-20 06:35 | XMS_ITS | Data Portability ---
Author Organization [facility] Address [address] [place] [address] Assessment No assessment recorded. Plan of Treatment Reminders Order Date Submit Date Provider Last Modified By Organization Details Last Modified Time Details Appointments None recorded. Lab CMP, serum or plasma 2019 [facility], [address] [place] [address], [address], [place], [address], 0 07:08:45 CBC [facility], [address] [place] [address], [address], [place], [address], 0 07:08:46 lipid panel, serum 2019 [facility], [address] [place] [address], [address], [place], [address], 0 07:08:46 TSH, ultra-sens itive, serum 2019 [facility], [address] [place] [address], [address], [place], [address], 0 14:50:00 TSH + free T4, serum 2019 [facility], [address] [place] [address], [address], [place], [address], 0 07:08:45 T3, free, serum or plasma 2019 020 [facility], [address] [facility], [address], [place], [address], 0 07:08:47 Referral None recorded. Procedures None recorded. Surgeries None recorded. Imaging None recorded. Medication Orders lisinopril 5 mg tablet 2021 022 [facility][id number], [address], [place], [place], [id number], 2 16:31:34 lisinopril 5 mg tablet 2019 020 [facility] #[id number], [address], [place], [place], [id number], 0 13:02:45 hydroxyzin e HCl 25 mg tablet 2019 020 [facility] #[id number], [address], [place], [place], [id number], 2 15:58:36 hydrochlor othiazide 12.5 mg capsule 2019 020 [facility], [address] [place], [address], 0 12:10:54 Patient TargetsNo targets recorded. Patient Instructions Encounter Date Encounter Id Patient Instructions Last Modified By Organization Details Last Modified Time 08/18/2022 [id number] learning about high blood pressure [email or web address] Not available 08/18/2022 13:29:19 Reason for Referral None Reported. Results Created Date Observation Date Name Description Value Unit Range Abnormal Flag Note LastModifiedBy Organization Detail LastModifiedTime 06/17/19 20 06/18/2019 TSH + free T4, serum TSH 1.630 uIU/m L 0.450- 4.500 Not Available [facility] ([facility]) [address], [place], [address], 06/18/2019 07:08:45 06/17/19 20 06/18/2019 TSH + free T4, serum T4,free(dire ct) 1.43 NG/dL 0.82-1 .77 Not Available [facility] ([facility]) [address] [place], [address], 06/18/2019 07:08:45 06/17/19 20 06/18/2019 CMP, serum or plasm a glucose 94 mg/dL 65-99 Not Available [facility] ([facility]) [address] [place], [address], 06/18/2019 07:08:45 06/17/19 20 06/18/2019 CMP, serum or plasm a BUN 13 mg/dL 8-27 Not Available [facility] ([facility]) [address] [place], [address], 06/18/2019 07:08:45 06/17/19 20 06/18/2019 CMP, serum or plasm a creatinine 0.85 mg/dL 0.57-1 .00 Not Available [facility] ([facility]) [address] [place], [address], 06/18/2019 07:08:45 06/17/19 20 06/18/2019 CMP, serum or plasm a eGFR if nonafricn AM 73 mL/mi n/1.7 3 >59 Not Available [facility] ([facility]) [address] [place], [address], 06/18/2019 07:08:45 06/17/19 20 06/18/2019 CMP, serum or plasm a eGFR if africn AM 84 mL/mi n/1.7 3 >59 Not Available [facility] ([facility]) [address] [place], [address], 06/18/2019 07:08:45 06/17/19 20 06/18/2019 CMP, serum or plasm a BUN/creatini ne ratio 15 12-28 Not Available [facility] ([facility]) [address] [place], [address], 06/18/2019 07:08:45 06/17/1906/18/2019 CMP, serum or plasm a sodium 140 mmol/ L 134-14 4 Not Available [facility] ([facility]) [address] [place], [address], 06/18/2019 07:08:45 06/17/1906/18/2019 CMP, serum or plasm a potassium 4.5 mmol/ L 3.5-5. 2 Not Available [facility] ([facility]) [address] [place], [address], 06/18/2019 07:08:45 06/17/1906/18/2019 CMP, serum or plasm a chloride 100 mmol/ L 96-106 Not Available [facility] ([facility]) [address] [place], [address], 06/18/2019 07:08:45 06/17/1906/18/2019 CMP, serum or plasm a carbon dioxide, total 25 mmol/ L 20- Not Available [facility] ([facility]) [address] [place], [address], 06/18/2019 07:08:45 06/17/1906/18/2019 CMP, serum or plasm a calcium 9.2 mg/dL 8.7-10 .3 Not Available [facility] ([facility]) [address] [place], [address], 06/18/2019 07:08:45 06/17/1906/18/2019 CMP, serum or plasm a protein, total 6.5 g/dL 6.0-8. 5 Not Available [facility] ([facility]) [address] [place], [address], 06/18/2019 07:08:45 06/17/1906/18/2019 CMP, serum or plasm a albumin 4.1 g/dL 3.8-4. 8 Not Available [facility] ([facility]) [address] [facility] [place], [address], 06/18/2019 07:08:45 06/17/19 20 06/18/2019 CMP, serum or plasm a globulin, total 2.4 g/dL 1.5-4. 5 Not Available [facility] ([facility]) [address] [place], [address], 06/18/2019 07:08:45 06/17/19 20 06/18/2019 CMP, serum or plasm a A/G ratio 1.7 1.2-2. 2 Not Available [facility] ([facility]) [address] [facility] [place], [address], 06/18/2019 07:08:45 06/17/19 20 06/18/2019 CMP, serum or plasm a bilirubin, total 0.3 mg/dL 0.0-1. 2 Not Available [facility] ([facility]) [address] [facility] [place], [address], 06/18/2019 07:08:45 06/17/19 20 06/18/2019 CMP, serum or plasm a alkaline phosphatase 66 IU/L 39-117 Not Available [facility]) [address] [place], [address], 06/18/2019 07:08:45 06/17/19 20 06/18/2019 CMP, serum or plasm a AST (SGOT) 21 IU/L 0-40 Not Available [facility] ([facility]) [address] [facility] [place], [address], 06/18/2019 07:08:45 06/17/19 20 06/18/2019 CMP, serum or plasm a ALT (SGPT) 11 IU/L 0-32 Not Available [facility] ([facility]) [address] [place], [address], 06/18/2019 07:08:45 06/17/19 20 06/18/2019 CBC WBC 7.3 x10e3 /uL 3.4-10 .8 Not Available [facility] ([facility]) [address] [facility] [place], [address], 06/18/2019 07:08:46 06/17/19 20 06/18/2019 CBC RBC 4.96 x10e6 /uL 3.77-5 .28 Not Available [facility] ([facility]) [address] [facility] [place], [address], 06/18/2019 07:08:46 06/17/19 20 06/18/2019 CBC hemoglobin 17.0 g/dL 11.1-1 5.9 above high normal Not Available [facility] ([facility]) [address] [facility] [place], [address], 06/18/2019 07:08:46 06/17/19 20 06/18/2019 CBC hematocrit 48.9 % 34.0-4 6.6 above high normal Not Available [facility] ([facility]) [address] [facility] [place], [address], 06/18/2019 07:08:46 06/17/19 20 06/18/2019 CBC MCV 99 fL 79-97 above high normal Not Available [facility] ([facility]) [address] [facility] [place], [address], 06/18/2019 07:08:46 06/17/19 20 06/18/2019 CBC MCH 34.3 pg 26.6-3 3.0 above high normal Not Available [facility] ([facility]) [address] [facility] [place], [address], 06/18/2019 07:08:46 06/17/19 20 06/18/2019 CBC MCHC 34.8 g/dL 31.5-3 5.7 Not Available [facility] ([facility]) [address] [place], [address], 06/18/2019 07:08:46 06/17/19 20 06/18/2019 CBC RDW 11.8 % 11.7-1 5.4 Not Available [facility] ([facility]) [address], [place], [address], 06/18/2019 07:08:46 06/17/19 20 06/18/2019 CBC platelets 190 x10e3 /uL 150-45 0 Not Available [facility] ([facility]) [address], [place], [address], 06/18/2019 07:08:46 06/17/19 20 06/18/2019 CBC NRBC LOSS PREVENTION REPRESENTATIVE Not Available [facility] ([facility]) [address], [place], [address], 06/18/2019 07:08:46 06/17/19 20 06/18/2019 lipid panel , serum cholesterol, total 177 mg/dL 100-19 9 Not Available [facility] ([facility]) [address], [place], [address], 06/18/2019 07:08:46 06/17/19 20 06/18/2019 lipid panel , serum triglyceride s 74 mg/dL 0-149 Not Available [facility] ([facility]) [address], [place], [address], 06/18/2019 07:08:46 06/17/19 20 06/18/2019 lipid panel , serum HDL cholesterol 66 mg/dL >39 Not Available [facility]) [address], [place], [address], 06/18/2019 07:08:46 06/17/19 20 06/18/2019 lipid panel , serum VLDL cholesterol po 15 mg/dL 5-40 Not Available [facility] ([facility]) [address], [place], [address], 06/18/2019 07:08:46 03/30/20 20 06/18/2019 lipid panel , serum LDL cholesterol calc 96 mg/dL 0-99 Not Available [facility] ([facility]) [address] [place], [address], 06/18/2019 07:08:46 06/17/19 20 06/18/2019 lipid panel , serum comment: LOSS PREVENTION REPRESENTATIVE Not Available [facility] ([facility]) [address] [facility], [place], [address], 06/18/2019 07:08:46 06/17/19 20 06/18/2019 lipid panel , serum LDL/HDL ratio 1.5 ratio 0.0-3. 2 LDL/H DL Ratio Men Women 1/2 Avg.R isk 1.0 1.5 Avg.R isk 3.6 3.2 2X Avg.R isk 6.2 5.0 3X Avg.R isk 8.0 6.1 Not Available [facility] ([facility]) [address] [facility], [place], [address], 06/18/2019 07:08:46 06/17/19 20 06/18/2019 T3, free, serum or plasm a triiodothyro nine (T3), free 2.5 pg/mL 2.0-4. 4 Not Available [facility] ([facility]) [address] [place], [address], 06/18/2019 07:08:47 01/09/20 20 01/08/2020 CT, chest , w/o contr ast No observ ation record ed. [address], [place], [address], 01/14/2020 12:32:15 01/10/20 20 01/10/2020 US, liver No observ ation record ed. [facility] [address] [facility] [address], [place], [address], 01/14/2020 12:32:16 01/15/20 20 01/08/2020 LDCT, chest , for lung cance r alix bhatti No observ ation record ed. [email or web address] Not Available 2019 12:48:24 01/20/20 20 01/20/2020 XR, chest No observ ation record ed. [address] [address], [place], [address], 01/24/2020 13:38:28 01/20/20 20 01/20/2020 biops y, lung, ct lizandro nce (PROC ) No observ ation record ed. [address] [address], [place], [address], 01/24/2020 13:38:17 01/20/20 20 01/20/2020 XR, chest No observ ation record ed. [address] [address], [place], [address], 01/24/2020 13:37:58 01/24/20 20 01/20/2020 XR, chest No observ ation record ed. [email or web address] Not Available 2019 12:48:25 02/18/20 20 02/18/2020 MRI, brain + brain stem, w/wo contr ast No observ ation record ed. [address] [address], [place], [address], 03/05/2020 18:03:36 03/05/20 20 03/05/2020 PET-C T, skull base to mid-t high scan No observ ation record ed. [address] (Imaging) [address] [place] [address], [place], [address], 03/05/2020 20:23:44 03/18/20 20 03/18/2020 NM, bone scan No observ ation record ed. [address] [address], [place], [address], 03/19/2020 11:08:17 05/27/19 21 05/11/2020 fluor oscop y (PROC ) No observ ation record ed. [email or web address] Not Available 2020 17:35:41 05/27/19 21 05/11/2020 XR, chest No observ ation record ed. [email or web address] Not Available 2020 17:35:56 07/21/19 21 07/20/2020 CT, chest , w/ contr ast No observ ation record ed. [address], [address], 07/29/2020 14:29:30 09/18/19 21 09/17/2020 CT, chest , w/ contr ast No observ ation record ed. [address], [address], 10/07/2020 18:18:43 12/22/19 21 12/21/2020 CT, chest , w/ contr ast No observ ation record ed. [address], [address], 12/24/2020 11:13:51 04/05/19 22 04/05/2021 imagi ng/di agnos tic resul t No observ ation record ed. [address] [address], [place], [address], 04/26/2021 16:15:38 06/29/19 22 06/28/2021 CT, angio gram, chest , w/ contr ast No observ ation record ed. [address] [facility], [place], [address], 06/29/2021 09:22:34 09/17/19 22 09/16/2021 CT, chest , w/ contr ast No observ ation record ed. [address] [address], [place], [address], 10/04/2021 12:53:12 09/20/19 22 09/16/2021 CT, chest , w/ contr ast No observ ation record ed. [address], [place], [address], 10/04/2021 12:53:40 11/24/19 22 11/23/2021 CT, angio gram, chest , w/ contr ast No observ ation record ed. [address], [place], [address], 11/25/2021 11:09:08 01/26/20 22 01/25/2022 CT, angio gram, chest , w/ contr ast No observ ation record ed. [address] [facility], [place], [address], 01/25/2022 14:27:42 06/01/19 23 05/31/2022 CT, chest , w/ contr ast No observ ation record ed. [address] [address], [place], [address], 06/07/2022 10:02:02 09/03/19 23 09/01/2022 CT, abdom en + pelvi s, w/ contr ast No observ ation record ed. [address] [address], [place], [address], 09/06/2022 16:43:15 09/29/19 23 09/28/2022 CT, chest , w/ contr ast No observ ation record ed. [address] [facility], [place], [address], 10/01/2022 16:09:11 12/28/19 23 12/27/2022 CT, chest + abdom en + pelvi s, w/ contr ast No observ ation record ed. [address] [address], [place], [address], 12/27/2022 14:15:52 04/03/19 24 04/03/2023 CT, chest , w/ contr ast No observ ation record ed. [address] [address], [place], [address], 04/12/2023 05:40:43 06/21/19 24 06/19/2023 CT, chest , w/ contr ast No observ ation record ed. [address] [address], [place], [address], 07/07/2023 10:11:02 06/22/19 24 06/19/2023 CT, chest , w/ contr ast No observ ation record ed. [address] [address], [place], [address], 07/07/2023 10:13:20 09/25/19 24 09/25/2023 CT, abdom en + pelvi s, w/ contr ast No observ ation record ed. [address] [address], [place], [address], 10/04/2023 05:18:05 10/13/19 24 10/12/2023 PET, skull base to mid-t high No observ ation record ed. [address] [address], [place], [address], 10/16/2023 10:39:34 10/14/19 24 10/14/2023 XR, chest , 2 view No observ ation record ed. [address] [address], [place], [address], 10/16/2023 10:42:31 10/14/19 24 10/14/2023 CT, angio gram, chest , w/ contr ast No observ ation record ed. [address] [address], [place], [address], 10/16/2023 10:42:52 10/15/19 24 10/15/2023 US, duple x, venou s, lower extre mity No observ ation record ed. [address] [address], [place], [address], 10/16/2023 10:43:07 10/16/19 24 10/16/2023 CT, heart , w/o contr ast, w/ coron andrea calci um score No observ ation record ed. [address], [place], [address], 10/16/2023 17:48:39 10/18/19 24 10/18/2023 XR, chest , 2 view No observ ation record ed. [id number] [facility] [address], [place], [address], 10/29/2023 07:39:48 Result Notes None recorded. Problems Name Problem SNOMED Code Status Onset Date Resolution Date Notes Provider Name and Address Organization Details Recorded Time Essential hypertension 05272320 Active 2019 Freddy Gallagher MD Attn: Dionte han,[address] [facility], [place], [address], [place] [facility] 0 14:45:57 Multiple bruising 529257541 Active 2019 Freddy Gallagher MD Attn: Dionte han,[address] [facility], [place], [address], [place] [facility] 0 14:47:00 Palmar erythema 15569986 Active 2019 Freddy Gallagher MD Attn: Dionte han,[address] [facility], [place], [address], [place] [facility] 0 14:47:22 Erythrocytosis 253704041 Active 2019 Freddy Gallagher MD Attn: Dionte han,[address] [facility], [place], [address], [place] [facility] 0 18:03:17 Disease of liver 775153175 Active 2019 Freddy Gallagher MD Attn: Dionte han,[address] [facility], [place], [address], [place] [facility] 0 11:30:11 Anxiety 74564081 Active 2019 Freddy Gallagher MD Attn: Dionte han,[address], [place], [address], [facility] 0 12:59:08 Adenocarcinoma of lung 280548911 Active 2022 Freddy Gallagher MD Attn: Dionte han,[address], [place], [address], [facility] - [facility] 3 13:24:53 Problem Notes None recorded. Procedures Surgical History Date Name Laterality Status Provider Name and Address Organization Details Recorded Time Tonsillectomy completed Esmer Wallis [facility] 06/17/2019 13:57:56 Total hysterectomy completed Esmer Wallis [facility] 06/17/2019 13:58:01 cholecystectomy completed Esmer vázquez MA [facility] 06/17/2019 13:58:20 Imaging Results Imaging Date Name Status LastModified by Organ [facility] Details LastModified Time 01/08/2020 CT, chest, w/o contrast completed [address], [address], 01/14/2020 12:32:15 01/10/2020 US, liver completed [address], [address], 01/14/2020 12:32:16 01/08/2020 LDCT, chest, for lung cancer screening [place] [email or web address] Information not available 01/24/2020 12:48:24 01/20/2020 XR, chest completed [address], [address], 01/24/2020 13:38:28 01/20/2020 biopsy, lung, ct guidance (PROC) completed [address], [address], 01/24/2020 13:38:17 01/20/2020 XR, chest completed [address], [address], 01/24/2020 13:37:58 01/20/2020 XR, chest completed [email or web address] Information no t available 01/24/2020 12:48:25 02/18/2020 MRI, brain + brain stem, w/wo contrast completed [address] [facility], [place], [address], 03/05/2020 18:03:36 03/05/2020 PET-CT, skull base to mid-thigh scan completed [address] (Imaging) [address] [place] [address] [address] [facility], [place], [address], 03/05/2020 20:23:44 03/18/2020 NM, bone scan completed [address] [address], [place], [address], 03/19/2020 11:08:17 05/11/2020 fluoroscopy (PROC) completed [email or web address] Information not available 06/04/2020 17:35:41 05/11/2020 XR, chest completed [email or web address] Information no t available 06/04/2020 17:35:56 07/20/2020 CT, chest, w/ contrast completed [address] [facility], [place], [address], 07/29/2020 14:29:30 09/17/2020 CT, chest, w/ contrast completed [address] [facility], [place], [address], 10/07/2020 18:18:43 12/21/2020 CT, chest, w/ contrast completed [address] [place] [address], [address], 12/24/2020 11:13:51 04/05/2021 imaging/diagnos tic result completed [address], [address], 04/26/2021 16:15:38 06/28/2021 CT, angiogram, chest, w/ contrast completed [address], [place], [address], 06/29/2021 09:22:34 09/16/2021 CT, chest, w/ contrast completed [address], [place], [address], 10/04/2021 12:53:12 09/16/2021 CT, chest, w/ contrast completed [address], [place], [address], 10/04/2021 12:53:40 11/23/2021 CT, angiogram, chest, w/ contrast completed [address], [place], [address], 11/25/2021 11:09:08 01/25/2022 CT, angiogram, chest, w/ contrast completed [address], [place], [address], 01/25/2022 14:27:42 05/31/2022 CT, chest, w/ contrast completed [address], [place], [address], 06/07/2022 10:02:02 09/01/2022 CT, abdomen + pelvis, w/ contrast completed [address], [place], [address], 09/06/2022 16:43:15 09/28/2022 CT, chest, w/ contrast completed [address], [place], [address], 10/01/2022 16:09:11 12/27/2022 CT, chest + abdomen + pelvis, w/ contrast completed [address], [place], [address], 12/27/2022 14:15:52 04/03/2023 CT, chest, w/ contrast completed [address], [place], [address], 04/12/2023 05:40:43 06/19/2023 CT, chest, w/ contrast completed [address], [place], [address], 07/07/2023 10:11:02 06/19/2023 CT, chest, w/ contrast completed [address], [place], [address], 07/07/2023 10:13:20 09/25/2023 CT, abdomen + pelvis, w/ contrast completed [address] [address], [place], [address], 10/04/2023 05:18:05 10/12/2023 PET, skull base to mid-thigh completed [address] [facility], [place], [address], 10/16/2023 10:39:34 10/14/2023 XR, chest, 2 view completed [address] [facility], [place], [address], 10/16/2023 10:42:31 10/14/2023 CT, angiogram, chest, w/ contrast completed [address] [facility], [place], [address], 10/16/2023 10:42:52 10/15/2023 US, duplex, venous, lower extremity completed [address] [place] [address], [address], 10/16/2023 10:43:07 10/16/2023 CT, heart, w/o contrast, w/ coronary calcium score completed [address] [place] [address], [address], 10/16/2023 17:48:39 10/18/2023 XR, chest, 2 view completed [address], [place], [address], 10/29/2023 07:39:48 Procedure Notes None recorded. Medical Equipment None Reported. Allergies Allergen ID Allergen Name Allergen Category Reaction Reaction Severity Criticality Documentation Date Start Date Code Code System Note Provider Name and Address Organization Details Recorded Time 451751 sertralin e medicatio n abdominal pain severe Not available 01/28/2020 42957 RxNorm Not Available Not Available Not Available [...] a dose pack FOLLOW PACKAGE DIRECTION S 08/18 completed Not Available Not Available Not Available ondansetron 4 mg disintegrat ing tablet DISSOLVE ONE TABLET ON TOP OF TONGUE EVERY 8 HOURS NEEDED FOR NAUSEA /EMESIS 05/04 completed Not Available Not Available Not Available Premarin 1.25 mg tablet 01/27 completed Not Available Not Available Not Available Vitals Date Recorded Body height Body mass index (BMI) Body weight Body temperature Oxygen saturation Oxygen saturation in Arterial blood by Pulse oximetry Heart rate Systolic blood pressure Diastolic blood pressure Provider Name and Address Organization Details Last Updated DateTime 0 172.72 cm 27.5 kg/m2 92586.2 2 g 98.1 [degF] 96 % 96 % 81 /min 138 mm[Hg] 92 mm[Hg] Esmer Wallis MA [facility] 0 13:59:53 Date Recorded Body height Provider Name an d Address Organization Details Last Updated DateTime 01/28/2020 172.72 cm Esmer Wallis MA [facility] 0 12:09:47 Date Recorded Body height Body mass index (BMI) Body weight Body temperature Heart rate Oxygen saturation Oxygen saturation in Arterial blood by Pulse oximetry Systolic blood pressure Diastolic blood pressure Provider Name and Address Organization Details Last Updated DateTime 2 172.72 cm 23 kg/m2 06035.4 5 g 98.1 [degF] 108 /min 99 % 99 % 110 mm[Hg] 60 mm[Hg] Esmer Wallis MA [facility] 2 16:00:04 Date Recorded Body height Body mass index (BMI) Body weight Heart rate Body temperature Oxygen saturation Oxygen saturation in Arterial blood by Pulse oximetry Systolic blood pressure Diastolic blood pressure Provider Name and Address Organization Details Last Updated DateTime 3 172.72 cm 23.1 kg/m2 10105.0 4 g 101 /min 98.1 [degF] 98 % 98 % 126 mm[Hg] 78 mm[Hg] Esmer Wallis MA [facility] 3 12:50:49 Social History Question Answer Notes LastModified by Organizat ion Details LastModified Time Tobacco Smoking Status Current Every Day Smoker Esmer Wallis MA [facility] 06/17/2019 13:57:04 What Was The Date Of [...] SNOMED-CT Code Diagnosis ICD10 Code Diagnosis Note [id number] [facility] [address] [place] [phone] 06/17/2019 13:44:23 06/18/2019 16:59:43 Essential hypertension 43006474 I10 Newly diagnosed Will start HCTZ 12.5 mg/d Multiple bruising 043740 006 T14.8XXA Palmar erythema 52908083 L53.8 [id number] MD Severiano Butterfield (Adult Med) [address] [place] [phone] 07/15/2019 12:28:58 07/16/2019 16:42:08 Essential hypertension 99597039 I10 Stop HCTZ. Check BP daily. Call in three days. Reevaluate [id number] MD Severiano Butterfield (Adult Med) [address] [place] [phone] 01/28/2020 11:39:06 01/29/2020 11:05:44 Essential hypertension [id number] I10 Disease of liver 7816227 03 K76.9 Anxiety [id number] F41.9 [id number] MD Severiano Butterfield (Adult Med) [address] [place] [phone] 05/04/2021 15:50:21 05/05/2021 14:24:36 Essential hypertension 17809699 I10 Cont current regime [id number] MD Severiano Butterfield (Adult Med) [address] [place] [phone] 0 08/18/2022 12:33:29 08/19/2022 13:57:28 Essential hypertension 28825109 I10 Cont current regime Labs drawn regularly by oncology Disease of liver 1297399 03 K76.9 Adenocarci noma of lung 287768202 C34.90 F/U oncology as scheduled Health Concerns Section Related Observation LastModified by Organization Detai ls LastModified Time None Recorded Concern Status LastModified by Organization Details LastModified Time None Recorded Advance Directives Directive None Recorded Payers Encounter Date Sequence Insurance Name Policy Number Policy Hensley Covered Member ID Hensley Member ID Guarantor Name 06/17/2019 1 [employer] (POS) [id number] Yessenia Wallis [id number] Yessenia Wallis 07/15/2019 1 [employer] (POS) [id number] Yessenia Wallis [id number] Yessenia Wallis 01/28/2020 1 *SELF PAY* Dayana Wallis 01/28/2020 1 [place] Yessenia Wallis [id number] Yessenia Wallis 05/04/2021 1 [place] Yessenia Wallis [id number] Yessenia Wallis 05/04/2021 [place] N[place] - RHC - FQ Yessenia Wallis [id number] Yessenia Wallis 08/18/2022 1 [place] Yessenia Wallis [id number] Yessenia Wallis 08/18/2022 2 [employer] (MEDICARE SUPPLEMENT) Yessenia Wallis [id number] Yessenia Wallis Notes Date Note Type [...] Gallagher MD Attn: Accounting,[address] [facility], [place], [address], [place] [facility] 06/17/2019 15:01:07 07/15/2019 text/html Telephone visit due to Covid-19 precautions. Pt has been unable to tolerate 12.5 mg HCTZ. Feels weak, lightheaded about four hours after med is taken. She takes her BP daily. Systolic averages 130's while diastolic 85 - 92. Freddy Gallagher MD Attn: Accounting,[address] [facility], [place], [address], [place] [facility] 07/15/2019 13:09:34 01/28/2020 text/html Telephone visit due to Covid-19 precautions. She is requesting refills on BP meds. Recently diagnosed with non-small cell ca lung. Experiencing anxiety off and on Freddy Gallagher MD Attn: Accounting,[address] [facility], [place], [address], [place] [facility] 01/28/2020 13:03:03 05/04/2021 text/html Needs refills on BP meds. Currently being treaed for adenoca left lung Freddy Gallagher MD Attn: Accounting[address] [place], [address], [place] [facility] 05/04/2021 16:31:53 08/18/2022 text/html Here for regular visit. She feels good Freddy Gallagher MD Attn: Accounting,[address] [facility], [place], [address], [place] [facility] 08/18/2022 13:30:20 OBGyn Episode No OBEpisode recorded.
[2024-06-20 07:02] LABS: Estimated Glomerular Filt Rate > 60
== END 2024-06-20 06:33 | disposition home or self-care (01) ==
PROVIDERS: PCP Internal Medicine Hematology & Oncology; Visit Provider Internal Medicine Hematology & Oncology
DX: R91.8 Other nonspecific abnormal finding of lung field (principal); C34.91 Malignant neoplasm of unspecified part of right bronchus or lung
CPT/HCPCS: 71260; Q9967

== ENCOUNTER 2024-07-25 06:43 | Outpatient (CLI) | payer MEDICARE, OTHER, SELFPAY ==
--- NOTE | ~2024-07-25 | MR_ITS ---
Procedure: MR thoracic spine wo/w con Ordering provider: Malik Lewis MD History: . COMPRESSION FX OF T10 VERTEBRA INITIAL ENCOUNTER . Comparison: None. Technique: MRI thoracic spine with and without contrast. 14 mL of ProHance was given IV. The FINDINGS: SPINAL CORD: Normal. No abnormal enhancement of the spinal cord or spinal canal. VERTEBRAL BODIES: Compression fracture is seen in T9 and T10 with loss of height by about 50% in T9 a nd 70% in T10. No retropulsed fragments seen. Areas of hypointense signal is seen on T1-weighted imag es with hyperintense signal on T2 and STIR weighted images in the 2 vertebrae. Postcontrast enhanceme nt is seen which raises the possibility of pathological fractures most likely due to metastatic disea se. Follow-up and further evaluation is advised. Extension of the edema and enhancement throughout th e the pedicles is noted. DISK SPACES: Narrowing of the disc T9-T10 and T10-T11 is noted. Otherwise, normal. STENOSIS: None. PARASPINOUS SOFT TISSUES: Minimal enhancement is seen anterior to the T9 and T10 vertebrae. Minimal e nhancement seen anterior to T12. IMPRESSION: Compression fracture of T9 and T10 with postcontrast enhancement which raises the possibility of pat hological fractures. Further evaluation and follow-up advised Reviewed, dictated and finalized at location A. IMPRESSION: Compression fracture of T9 and T10 with postcontrast enhancement which raises the possibility of pathological fractures. Further evaluation and follow-up adv ised
--- OUTSIDE RECORDS SUMMARY | 2024-07-25 06:46 | XMS_ITS | Encounter Summary ---
Author Organization [employer] Address [address] [place] [address] Care Team Providers Care Advisory Internship Name Role Phone Freddy Gallagher MD Primary Care Provider Encounter Details Date Type Department Care Team (Late st Contact Info) Description 03/25/2020 Chart Note [facility] Radiation Therapy [address] [place] [phone] [place] [address] [place] [address] Social History Tobacco Use Types [...] COVID-19? 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
--- OUTSIDE RECORDS SUMMARY | 2024-07-25 06:46 | XMS_ITS | Clinical Summary ---
Author Organization [facility] [email or web address] Address [address] [place] [address] Care Team Providers Care Apparel Trimmings Sales Representative Name Role Phone Freddy Gallagher MD Primary Care Provider Malik Lewis MD Unavailable [phone] Source Comments [facility],non-owned Affiliates and Associated Physician Practices is amultiple site organization consisting of ambulatory clinics and hospital sitesin [place], [place], [place] and [place]. This disclosure is being madepursuant to the Care Everywhere program and may not contain all information available regarding this patient. Last updated 17.[facility] [email or web address] Allergies No known active allergies Medications * Be aware that medications may not be up to date on this document. Alwaysverify current medications with the patient. 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 [place] [address] Crissy Kowalski MD [address] [facility] [address] [place] [address] Health Maintenance Due Date Last Done Comments [...] VACCINE (1 - 2023-2 5 season) 2023 DEPRESSION SCREENING 03/20/2024 INFLUENZA VACCINE (Season Ended) 2024 LIPID TESTING 01/09/2029 01/10/2024 Respiratory Syncytial Virus [...] Recent Progress Patient-Stated? Author Medication Management General Maryjane Ospina, RN Note: Expected end date: Ongoing Interventions: Take all medications as prescribed Let your doctor know right away about any changes in your medications Make sure to request a refill of your medication at least one week prior to your last dose Insurance MEDICARE MEDICARE [employer] Care Teams [employer] Sales Representative Relationship Specialty Start Date End Date Freddy Gallagher MD [address] [place] [phone] PCP - General 01/28/20 Malik Lewis MD [address] [place] [phone] Medical Oncology 01/11/24
--- OUTSIDE RECORDS SUMMARY | 2024-07-25 06:46 | XMS_ITS | Encounter Summary ---
Author Organization [facility] [employer] Address [address] [place] [address] Care Team Providers Care Funeral Workers Name Role Phone Freddy Gallagher MD Primary Care Provider Reason for Visit * Reason Onset Date Comments Medication Refill 09/05/2022 Encounter Details Date Type Department Care Team (Late st Contact Info) Description 09/05/2022 Telephone [facility] Oncology and Hematology - [place] [address] [facility] [address] [place] [address] Malik Lewis MD [address] [facility] [address] [place] [address] Medication Refill Social History Tobacco Use [...] on filedocumented in this encounter Care Teams Funeral Workers Relationship Specialty Start Date End Date Freddy Gallagher MD [address] [place] [phone] PCP - General Gastroenterology 09/24/19 05/15/24 documented as of this encounter
--- OUTSIDE RECORDS SUMMARY | 2024-07-25 06:46 | XMS_ITS | Data Portability ---
Author Organization [facility] Address [address] [place] [address] Assessment No assessment recorded. Plan of Treatment Reminders Order Date Submit Date Provider Last Modified By Organization Details Last Modified Time Details Appointments None recorded. Lab CMP, serum or plasma 2019 [facility], [address] [place] [address], [address], [place], [address], 0 07:08:45 CBC 2019 [facility], [address] [place] [address], [address], [place], [address], 0 07:08:46 lipid panel, serum 2019 [facility], [address] [place] [address], [address], [place], [address], 0 07:08:46 TSH, ultra-sens itive, serum 2019 [facility], [address] [place] [address], [address], [place], [address], 0 14:50:00 TSH + free T4, serum 2019 [facility], [address] [place] [address], [address], [place], [address], 0 07:08:45 T3, free, serum or plasma 2019 020 [facility], [address] [facility], [address], [place], [address], 0 07:08:47 Referral None recorded. Procedures None recorded. Surgeries None recorded. Imaging None recorded. Medication Orders lisinopril 5 mg tablet 2021 022 [facility][id number], [address], [place], [place], [id number], 2 16:31:34 lisinopril 5 mg tablet 2019 020 [facility] #[id number], [address], [place], [place], [id number], 0 13:02:45 hydroxyzin e HCl 25 mg tablet 2019 020 [facility][id number], [address], [place], [place], [id number], 2 15:58:36 hydrochlor othiazide 12.5 mg capsule 2019 020 [facility], [address] [place], [address], 0 12:10:54 Patient TargetsNo targets recorded. Patient Instructions Encounter Date Encounter Id Patient Instructions Last Modified By Organization Details Last Modified Time 08/18/2022 [id number] learning about high blood pressure Not available 08/18/2022 13:29:19 Reason for Referral None Reported. Results Created Date Observation Date Name Description Value Unit Range Abnormal Flag Note LastModifiedBy Organization Detail LastModifiedTime 06/17/19 20 06/18/2019 TSH + free T4, serum TSH 1.630 uIU/m L 0.450- 4.500 Not Available [facility] ([facility]) [address], [place], [address], 06/18/2019 07:08:45 06/17/19 20 06/18/2019 TSH + free T4, serum T4,free(dire ct) 1.43 NG/dL 0.82-1 .77 Not Available [facility] ([facility]) [address] [place], [address], 06/18/2019 07:08:45 06/17/19 20 06/18/2019 CMP, serum or plasm a glucose 94 mg/dL 65-99 Not Available [facility] ([facility]) [address] [place], [address], 06/18/2019 07:08:45 06/17/19 20 06/18/2019 CMP, serum or plasm a BUN 13 mg/dL 8-27 Not Available [facility] ([facility]) [address] [place], [address], 06/18/2019 07:08:45 06/17/19 20 06/18/2019 CMP, serum or plasm a creatinine 0.85 mg/dL 0.57-1 .00 Not Available [facility] ([facility]) [address] [place], [address], 06/18/2019 07:08:45 06/17/19 20 06/18/2019 CMP, serum or plasm a eGFR if nonafricn AM 73 mL/mi n/1.7 3 >59 Not Available [facility] ([facility]) [address] [place], [address], 06/18/2019 07:08:45 06/17/19 20 06/18/2019 CMP, serum or plasm a eGFR if africn AM 84 mL/mi n/1.7 3 >59 Not Available [facility] ([facility]) [address] [place], [address], 06/18/2019 07:08:45 06/17/19 20 06/18/2019 CMP, serum or plasm a BUN/creatini ne ratio 15 12-28 Not Available [facility] ([facility]) [address] [place], [address], 06/18/2019 07:08:45 06/17/1906/18/2019 CMP, serum or plasm a sodium 140 mmol/ L 134-14 4 Not Available [facility] ([facility]) [address] [place], [address], 06/18/2019 07:08:45 06/17/1906/18/2019 CMP, serum or plasm a potassium 4.5 mmol/ L 3.5-5. 2 Not Available [facility] ([facility]) [address] [place], [address], 06/18/2019 07:08:45 06/17/1906/18/2019 CMP, serum or plasm a chloride 100 mmol/ L 96-106 Not Available [facility] ([facility]) [address] [place], [address], 06/18/2019 07:08:45 06/17/1906/18/2019 CMP, serum or plasm a carbon dioxide, total 25 mmol/ L 20- Not Available [facility] ([facility]) [address] [place], [address], 06/18/2019 07:08:45 06/17/1906/18/2019 CMP, serum or plasm a calcium 9.2 mg/dL 8.7-10 .3 Not Available [facility] ([facility]) [address] [place], [address], 06/18/2019 07:08:45 06/17/1906/18/2019 CMP, serum or plasm a protein, total 6.5 g/dL 6.0-8. 5 Not Available [facility] ([facility]) [address] [place], [address], 06/18/2019 07:08:45 06/17/1906/18/2019 CMP, serum or plasm a albumin 4.1 g/dL 3.8-4. 8 Not Available [facility] ([facility]) [address] [facility] [place], [address], 06/18/2019 07:08:45 06/17/19 20 06/18/2019 CMP, serum or plasm a globulin, total 2.4 g/dL 1.5-4. 5 Not Available [facility] ([facility]) [address] [place], [address], 06/18/2019 07:08:45 06/17/19 20 06/18/2019 CMP, serum or plasm a A/G ratio 1.7 1.2-2. 2 Not Available [facility] ([facility]) [address] [facility] [place], [address], 06/18/2019 07:08:45 06/17/19 20 06/18/2019 CMP, serum or plasm a bilirubin, total 0.3 mg/dL 0.0-1. 2 Not Available [facility] ([facility]) [address] [facility] [place], [address], 06/18/2019 07:08:45 06/17/19 20 06/18/2019 CMP, serum or plasm a alkaline phosphatase 66 IU/L 39-117 Not Available [facility] ([facility]) [address] [place], [address], 06/18/2019 07:08:45 06/17/19 20 06/18/2019 CMP, serum or plasm a AST (SGOT) 21 IU/L 0-40 Not Available [facility] ([facility]) [address] [facility] [place], [address], 06/18/2019 07:08:45 06/17/19 20 06/18/2019 CMP, serum or plasm a ALT (SGPT) 11 IU/L 0-32 Not Available [facility] ([facility]) [address] [place], [address], 06/18/2019 07:08:45 06/17/19 20 06/18/2019 CBC WBC 7.3 x10e3 /uL 3.4-10 .8 Not Available [facility] ([facility]) [address] [facility] [place], [address], 06/18/2019 07:08:46 06/17/19 20 06/18/2019 CBC RBC 4.96 x10e6 /uL 3.77-5 .28 Not Available [facility] ([facility]) [address] [facility] [place], [address], 06/18/2019 07:08:46 06/17/19 20 06/18/2019 CBC hemoglobin 17.0 g/dL 11.1-1 5.9 above high normal Not Available [facility] ([facility]) [address] [facility] [place], [address], 06/18/2019 07:08:46 06/17/19 20 06/18/2019 CBC hematocrit 48.9 % 34.0-4 6.6 above high normal Not Available [facility] ([facility]) [address] [facility] [place], [address], 06/18/2019 07:08:46 06/17/19 20 06/18/2019 CBC MCV 99 fL 79-97 above high normal Not Available [facility] ([facility]) [address] [facility] [place], [address], 06/18/2019 07:08:46 06/17/19 20 06/18/2019 CBC MCH 34.3 pg 26.6-3 3.0 above high normal Not Available [facility] ([facility]) [address] [facility] [place], [address], 06/18/2019 07:08:46 06/17/19 20 06/18/2019 CBC MCHC 34.8 g/dL 31.5-3 5.7 Not Available [facility] ([facility]) [address] [place], [address], 06/18/2019 07:08:46 06/17/19 20 06/18/2019 CBC RDW 11.8 % 11.7-1 5.4 Not Available [facility] ([facility]) [address], [place], [address], 06/18/2019 07:08:46 06/17/19 20 06/18/2019 CBC platelets 190 x10e3 /uL 150-45 0 Not Available [facility] ([facility]) [address], [place], [address], 06/18/2019 07:08:46 06/17/19 20 06/18/2019 CBC NRBC LABOR CONCILIATOR Not Available [facility] ([facility]) [address], [place], [address], 06/18/2019 07:08:46 06/17/19 20 06/18/2019 lipid panel , serum cholesterol, total 177 mg/dL 100-19 9 Not Available [facility] ([facility]) [address], [place], [address], 06/18/2019 07:08:46 06/17/19 20 06/18/2019 lipid panel , serum triglyceride s 74 mg/dL 0-149 Not Available [facility] ([facility]) [address], [place], [address], 06/18/2019 07:08:46 06/17/19 20 06/18/2019 lipid panel , serum HDL cholesterol 66 mg/dL >39 Not Available [facility] ([facility]) [address], [place], [address], 06/18/2019 07:08:46 06/17/19 20 06/18/2019 lipid panel , serum VLDL cholesterol po 15 mg/dL 5-40 Not Available [facility] ([facility]) [address], [place], [address], 06/18/2019 07:08:46 03/30/20 20 06/18/2019 lipid panel , serum LDL cholesterol calc 96 mg/dL 0-99 Not Available [facility] ([facility]) [address] [place], [address], 06/18/2019 07:08:46 06/17/19 20 06/18/2019 lipid panel , serum comment: LABOR CONCILIATOR Not Available [facility] ([facility]) [address] [facility], [place], [address], 06/18/2019 07:08:46 06/17/19 20 06/18/2019 lipid panel , serum LDL/HDL ratio 1.5 ratio 0.0-3. 2 LDL/H DL Ratio Men Women 1/2 Avg.R isk 1.0 1.5 Avg.R isk 3.6 3.2 2X Avg.R isk 6.2 5.0 3X Avg.R isk 8.0 6.1 Not Available [facility] ([facility]) [address] [facility], [place], [address], 06/18/2019 07:08:46 06/17/19 20 06/18/2019 T3, free, serum or plasm a triiodothyro nine (T3), free 2.5 pg/mL 2.0-4. 4 Not Available [facility] ([facility]) [address] [place], [address], 06/18/2019 07:08:47 01/09/20 20 01/08/2020 CT, chest , w/o contr ast No observ ation record ed. [address], [place], [address], 01/14/2020 12:32:15 01/10/20 20 01/10/2020 US, liver No observ ation record ed. [facility] [address] [facility] [address], [place], [address], 01/14/2020 12:32:16 01/15/20 20 01/08/2020 LDCT, chest , for lung cance r alix bhatti No observ ation record ed. [email or web address] Not Available 2019 12:48:24 01/20/20 20 01/20/2020 XR, chest No observ ation record ed. [address] [address], [place], [address], 01/24/2020 13:38:28 01/20/20 20 01/20/2020 biops y, lung, ct lizandro nce (PROC ) No observ ation record ed. [address] [address], [place], [address], 01/24/2020 13:38:17 01/20/20 20 01/20/2020 XR, chest No observ ation record ed. [address] [address], [place], [address], 01/24/2020 13:37:58 01/24/20 20 01/20/2020 XR, chest No observ ation record ed. [email or web address] Not Available 2019 12:48:25 02/18/20 20 02/18/2020 MRI, brain + brain stem, w/wo contr ast No observ ation record ed. [address] [address], [place], [address], 03/05/2020 18:03:36 03/05/20 20 03/05/2020 PET-C T, skull base to mid-t high scan No observ ation record ed. [address] (Imaging) [address] [place] [address], [place], [address], 03/05/2020 20:23:44 03/18/20 20 03/18/2020 NM, bone scan No observ ation record ed. [address] [address], [place], [address], 03/19/2020 11:08:17 05/27/19 21 05/11/2020 fluor oscop y (PROC ) No observ ation record ed. [place] [id number] Not Available 2020 17:35:41 05/27/19 21 05/11/2020 XR, chest No observ ation record ed. [email or web address] Not Available 2020 17:35:56 07/21/19 21 07/20/2020 CT, chest , w/ contr ast No observ ation record ed. [address], [address], 07/29/2020 14:29:30 09/18/19 21 09/17/2020 CT, chest , w/ contr ast No observ ation record ed. [address], [address], 10/07/2020 18:18:43 12/22/19 21 12/21/2020 CT, chest , w/ contr ast No observ ation record ed. [address], [address], 12/24/2020 11:13:51 04/05/19 22 04/05/2021 imagi ng/di agnos tic resul t No observ ation record ed. [address] [address], [place], [address], 04/26/2021 16:15:38 06/29/19 22 06/28/2021 CT, angio gram, chest , w/ contr ast No observ ation record ed. [address] [facility], [place], [address], 06/29/2021 09:22:34 09/17/19 22 09/16/2021 CT, chest , w/ contr ast No observ ation record ed. [address] [address], [place], [address], 10/04/2021 12:53:12 09/20/19 22 09/16/2021 CT, chest , w/ contr ast No observ ation record ed. [address], [place], [address], 10/04/2021 12:53:40 11/24/19 22 11/23/2021 CT, angio gram, chest , w/ contr ast No observ ation record ed. [address], [place], [address], 11/25/2021 11:09:08 01/26/20 22 01/25/2022 CT, angio gram, chest , w/ contr ast No observ ation record ed. [address] [facility], [place], [address], 01/25/2022 14:27:42 06/01/19 23 05/31/2022 CT, chest , w/ contr ast No observ ation record ed. [address] [address], [place], [address], 06/07/2022 10:02:02 09/03/19 23 09/01/2022 CT, abdom en + pelvi s, w/ contr ast No observ ation record ed. [address] [address], [place], [address], 09/06/2022 16:43:15 09/29/19 23 09/28/2022 CT, chest , w/ contr ast No observ ation record ed. [address] [facility], [place], [address], 10/01/2022 16:09:11 12/28/19 23 12/27/2022 CT, chest + abdom en + pelvi s, w/ contr ast No observ ation record ed. [address] [address], [place], [address], 12/27/2022 14:15:52 04/03/19 24 04/03/2023 CT, chest , w/ contr ast No observ ation record ed. [address] [address], [place], [address], 04/12/2023 05:40:43 06/21/19 24 06/19/2023 CT, chest , w/ contr ast No observ ation record ed. [address] [address], [place], [address], 07/07/2023 10:11:02 06/22/19 24 06/19/2023 CT, chest , w/ contr ast No observ ation record ed. [address] [address], [place], [address], 07/07/2023 10:13:20 09/25/19 24 09/25/2023 CT, abdom en + pelvi s, w/ contr ast No observ ation record ed. [address] [address], [place], [address], 10/04/2023 05:18:05 10/13/19 24 10/12/2023 PET, skull base to mid-t high No observ ation record ed. [address] [address], [place], [address], 10/16/2023 10:39:34 10/14/19 24 10/14/2023 XR, chest , 2 view No observ ation record ed. [address] [address], [place], [address], 10/16/2023 10:42:31 10/14/19 24 10/14/2023 CT, angio gram, chest , w/ contr ast No observ ation record ed. [address] [address], [place], [address], 10/16/2023 10:42:52 10/15/19 24 10/15/2023 US, duple x, venou s, lower extre mity No observ ation record ed. [address] [address], [place], [address], 10/16/2023 10:43:07 10/16/19 24 10/16/2023 CT, heart , w/o contr ast, w/ coron andrea calci um score No observ ation record ed. [address], [place], [address], 10/16/2023 17:48:39 10/18/19 24 10/18/2023 XR, chest , 2 view No observ ation record ed. [place] [id number] [facility] [address], [place], [address], 10/29/2023 07:39:48 Result Notes None recorded. Problems Name Problem SNOMED Code Status Onset Date Resolution Date Notes Provider Name and Address Organization Details Recorded Time Essential hypertension 30722800 Active 2019 Freddy Gallagher MD Attn: Dionte han,[address] [facility], [place], [address], [place] [facility] 0 14:45:57 Multiple bruising 490659763 Active 2019 Freddy Gallagher MD Attn: Dionte han,[address] [facility], [place], [address], [place] [facility] 0 14:47:00 Palmar erythema 23085674 Active 2019 Freddy Gallagher MD Attn: Dionte han,[address] [facility], [place], [address], [place] [facility] 0 14:47:22 Erythrocytosis 331154703 Active 2019 Freddy Gallagher MD Attn: Dionte han,[address] [facility], [place], [address], [place] [facility] 0 18:03:17 Disease of liver 678869635 Active 2019 Freddy Gallagher MD Attn: Dionte han,[address] [facility], [place], [address], [place] [facility] 0 11:30:11 Anxiety 30861885 Active 2019 Freddy Gallagher MD Attn: Dionte han,[address], [place], [address], [facility] 0 12:59:08 Adenocarcinoma of lung 170811465 Active 2022 Freddy Gallagher MD Attn: Dionte han,[address], [place], [address], [facility] - [facility] 3 13:24:53 Problem Notes None recorded. Procedures Surgical History Date Name Laterality Status Provider Name and Address Organization Details Recorded Time Tonsillectomy completed Esmer Wallis [place] [facility] 06/17/2019 13:57:56 Total hysterectomy completed Esmer Wallis MA [place] [facility] 06/17/2019 13:58:01 cholecystectomy completed Esmer vázquez MA [place] - [facility] 06/17/2019 13:58:20 Imaging Results Imaging Date Name Status [facility]Modified by [facility] Details LastModified Time 01/08/2020 CT, chest, w/o contrast completed [address], [address], 01/14/2020 12:32:15 01/10/2020 US, liver completed [address], [address], 01/14/2020 12:32:16 01/08/2020 LDCT, chest, for lung cancer screening [place] [id number] Information not available 01/24/2020 12:48:24 01/20/2020 XR, chest completed [address], [address], 01/24/2020 13:38:28 01/20/2020 biopsy, lung, ct guidance (PROC) completed [address], [address], 01/24/2020 13:38:17 01/20/2020 XR, chest completed [address], [address], 01/24/2020 13:37:58 01/20/2020 XR, chest completed [email or web address] Information no t available 01/24/2020 12:48:25 02/18/2020 MRI, brain + brain stem, w/wo contrast completed [address] [facility], [place], [address], 03/05/2020 18:03:36 03/05/2020 PET-CT, skull base to mid-thigh scan completed [address] (Imaging) [address] [place] [address] [address] [facility], [place], [address], 03/05/2020 20:23:44 03/18/2020 NM, bone scan completed [address] [address], [place], [address], 03/19/2020 11:08:17 05/11/2020 fluoroscopy (PROC) completed [email or web address] Information not available 06/04/2020 17:35:41 05/11/2020 XR, chest completed [email or web address] Information no t available 06/04/2020 17:35:56 07/20/2020 CT, chest, w/ contrast completed [address] [facility], [place], [address], 07/29/2020 14:29:30 09/17/2020 CT, chest, w/ contrast completed [address] [facility], [place], [address], 10/07/2020 18:18:43 12/21/2020 CT, chest, w/ contrast completed [address] [place] [address], [address], 12/24/2020 11:13:51 04/05/2021 imaging/diagnos tic result completed [address], [address], 04/26/2021 16:15:38 06/28/2021 CT, angiogram, chest, w/ contrast completed [address], [place], [address], 06/29/2021 09:22:34 09/16/2021 CT, chest, w/ contrast completed [address], [place], [address], 10/04/2021 12:53:12 09/16/2021 CT, chest, w/ contrast completed [address], [place], [address], 10/04/2021 12:53:40 11/23/2021 CT, angiogram, chest, w/ contrast completed [address], [place], [address], 11/25/2021 11:09:08 01/25/2022 CT, angiogram, chest, w/ contrast completed [address], [place], [address], 01/25/2022 14:27:42 05/31/2022 CT, chest, w/ contrast completed [address], [place], [address], 06/07/2022 10:02:02 09/01/2022 CT, abdomen + pelvis, w/ contrast completed [address], [place], [address], 09/06/2022 16:43:15 09/28/2022 CT, chest, w/ contrast completed [address], [place], [address], 10/01/2022 16:09:11 12/27/2022 CT, chest + abdomen + pelvis, w/ contrast completed [address], [place], [address], 12/27/2022 14:15:52 04/03/2023 CT, chest, w/ contrast completed [address], [place], [address], 04/12/2023 05:40:43 06/19/2023 CT, chest, w/ contrast completed [address], [place], [address], 07/07/2023 10:11:02 06/19/2023 CT, chest, w/ contrast completed [address], [place], [address], 07/07/2023 10:13:20 09/25/2023 CT, abdomen + pelvis, w/ contrast completed [address] [address], [place], [address], 10/04/2023 05:18:05 10/12/2023 PET, skull base to mid-thigh completed [address] [facility], [place], [address], 10/16/2023 10:39:34 10/14/2023 XR, chest, 2 view completed [address] [facility], [place], [address], 10/16/2023 10:42:31 10/14/2023 CT, angiogram, chest, w/ contrast completed [address] [facility], [place], [address], 10/16/2023 10:42:52 10/15/2023 US, duplex, venous, lower extremity completed [address] [place] [address], [address], 10/16/2023 10:43:07 10/16/2023 CT, heart, w/o contrast, w/ coronary calcium score completed [address] [place] [address], [address], 10/16/2023 17:48:39 10/18/2023 XR, chest, 2 view completed [address], [place], [address], 10/29/2023 07:39:48 Procedure Notes None recorded. Medical Equipment None Reported. Allergies Allergen ID Allergen Name Allergen Category Reaction Reaction Severity Criticality Documentation Date Start Date Code Code System Note Provider Name and Address Organization Details Recorded Time 172982 sertralin e medicatio n abdominal pain severe Not available 01/28/2020 20662 RxNorm Freddy Gallagher MD Attn: Dionte han,[address], [place], [address], [facility] - [facility] 0 12:48:26 Medications Name Sig Start Date Stop Date [...] Updated DateTime 0 172.72 cm 27.5 kg/m2 30911.2 2 g 98.1 [degF] 96 % 96 % 81 /min 138 mm[Hg] 92 mm[Hg] Esmer Wallis MA [facility] 0 13:59:53 Date Recorded Body height Provider Name an d Address Organization Details Last Updated DateTime 01/28/2020 172.72 cm Esmer Wallis MA [facility] 0 12:09:47 Date Recorded Body height Body mass index (BMI) Body weight Body temperature Heart rate Oxygen saturation Oxygen saturation in Arterial blood by Pulse oximetry Systolic blood pressure Diastolic blood pressure Provider Name and Address Organization Details Last Updated DateTime 2 172.72 cm 23 kg/m2 24815.4 5 g 98.1 [degF] 108 /min 99 % 99 % 110 mm[Hg] 60 mm[Hg] Esmer Wallis MA [facility] 2 16:00:04 Date Recorded Body height Body mass index (BMI) Body weight Heart rate Body temperature Oxygen saturation Oxygen saturation in Arterial blood by Pulse oximetry Systolic blood pressure Diastolic blood pressure Provider Name and Address Organization Details Last Updated DateTime 3 172.72 cm 23.1 kg/m2 85695.0 4 g 101 /min 98.1 [degF] 98 % 98 % 126 mm[Hg] 78 mm[Hg] Esmer Wallis MA [facility] 3 12:50:49 Social History Question Answer Notes LastModified by Organizat ion Details LastModified Time Tobacco Smoking Status Current Every Day Smoker Esmer Wallis MA null, [facility] 06/17/2019 13:57:04 What Was The Date Of [...] SNOMED-CT Code Diagnosis ICD10 Code Diagnosis Note [id number] [facility] [address] [place] [phone] 06/17/2019 13:44:23 06/18/2019 16:59:43 Essential hypertension 07696853 I10 Newly diagnosed Will start HCTZ 12.5 mg/d Multiple bruising 535424 006 T14.8XXA Palmar erythema 52714232 L53.8 [id number] MD Severiano Butterfield (Adult Med) [address] [place] [phone] 07/15/2019 12:28:58 07/16/2019 16:42:08 Essential hypertension 35797384 I10 Stop HCTZ. Check BP daily. Call in three days. Reevaluate [id number] MD Severiano Butterfield (Adult Med) [address] [place] [address] 01/28/2020 11:39:06 01/29/2020 11:05:44 Essential hypertension 76382509 I10 Disease of liver 0317481 03 K76.9 Anxiety 25242486 F41.9 [id number] MD Severiano Butterfield (Adult Med) [address] [place] [phone] 05/04/2021 15:50:21 05/05/2021 14:24:36 Essential hypertension [id number] I10 Cont current regime [id number] MD Severiano Butterfield (Adult Med) [address] [place] [id number] 08/18/2022 12:33:29 08/19/2022 13:57:28 Essential hypertension [id number] I10 Cont current regime Labs drawn regularly by oncology Disease of liver 5521504 03 K76.9 Adenocarci noma of lung 593524556 C34.90 F/U oncology as scheduled Health Concerns Section Related Observation LastModified by Organization Detai ls LastModified Time None Recorded Concern Status LastModified by Organization Details LastModified Time None Recorded Advance Directives Directive None Recorded Payers Encounter Date Sequence Insurance Name Policy Number Policy Hensley Covered Member ID Hensley Member ID Guarantor Name 06/17/2019 1 [employer] (POS) [id number] Yessenia Wallis [id number] Yessenia Wallis 07/15/2019 1 [employer] (POS) [id number] Yessenia Wallis [id number] Yessenia Wallis 01/28/2020 1 *SELF PAY* Dayana Wallis 01/28/2020 1 [place] Yessenia Wallis [id number] Yessenia Wallis 05/04/2021 1 [place] Yessenia Wallis [id number] Yessenia Wallis 05/04/2021 [place] [facility] Yessenia Wallis [id number] Yessenia Wallis 08/18/2022 1 [place] Yessenia Wallis [id number] Yessenia Wallis 08/18/2022 2 [employer] (MEDICARE SUPPLEMENT) Yessenia Wallis [id number] Yessenia Wallis Notes Date Note Type [...] No abnormal sensations Freddy Gallagher MD Attn: Accounting, [address] [facility], [place], [address], [facility] - [facility] 06/17/2019 15:01:07 07/15/2019 text/html Telephone visit due to Covid-19 precautions. Pt has been unable to tolerate 12.5 mg HCTZ. Feels weak, lightheaded about four hours after med is taken. She takes her BP daily. Systolic averages 130's while diastolic 85 - 92. Freddy Gallagher MD Attn: Accounting, [address] [place], [address], [facility] - [facility] 07/15/2019 13:09:34 01/28/2020 text/html Telephone visit due to Covid-19 precautions. She is requesting refills on BP meds. Recently diagnosed with non-small cell ca lung. Experiencing anxiety off and on Freddy Gallagher MD Attn: Accounting, [address] [place], [address], [place] 01/28/2020 13:03:03 05/04/2021 text/html Needs refills on BP meds. Currently being treaed for adenoca left lung Freddy Gallagher MD Attn: Accounting, [address] [place], [address], [place] 05/04/2021 16:31:53 08/18/2022 text/html Here for regular visit. She feels good Freddy Gallagher MD Attn: Accounting, [address] [place], [address], [place] 08/18/2022 13:30:20 OBGyn Episode No OBEpisode recorded.
--- OUTSIDE RECORDS SUMMARY | 2024-07-25 06:46 | XMS_ITS | Continuity of Care Document ---
Author Organization [facility] Address [address] [place] [address] Phone Care Team Providers Care Guest Room Attendant Name Role Phone Beronica Morgan Unavailable Unavailable Advance Directives Directive Yes / No Effective Date File Name No Information Encounters Encounter Description Practice Location Reason(s) For Visit Diagnoses Date Provider Providers Copied on Encounter [facility], [address], [place], [place], [id number], [place] tel:[phone] [facility] No Information Apr-3 0-200 1 Cathy Loco. [address] [facility] , [address], [place], [address], [place]. tel:[phone] Family History Family Member Type Diagnosis Age At Onset No Information Payers Payer name Insurance type Covered green party ID Authoriza tion(s) No Information Social [...]
--- OUTSIDE RECORDS SUMMARY | 2024-07-25 06:46 | XMS_ITS | Clinical Summary ---
Author Organization [facility] Address [address] [place] [address] Care Team Providers Care Golf Player Assistant Name Role Phone Unavailable Primary Care Provider Unavailabl e Allergies No known active allergies Medications acetaminophen (TYLENOL) 325 mg tablet Take 325 mg by mouth every 4 hours as needed. Active lidocaine-lynn locaine (EMLA) 2.5-2.5 % Cream Apply to affected area see administration instructions. 25 Gram 1 03/27/19 21 Active ascorbic acid, vitamin C, (VITAMIN C) 500 mg tablet Take 500 mg by mouth daily. Active apixaban (Eliquis) 5 mg tablet Take 5 mg by mouth 2 times daily. Active metoprolol succinate (TOPROL XL) 25 mg Extended Release 24 hour tablet Take 25 mg by mouth daily in the morning. 10/18/19 24 Active furosemide (LASIX) 40 mg tablet Take 1 Tablet by mouth daily. 10/18/19 24 Active sacubitriL-va lsartan (Entresto) 24-26 mg Tablet Take 1 Tablet by mouth 2 times daily. Active simvastatin (ZOCOR) 20 mg tablet Take 20 mg by mouth daily. 01/10/20 24 Active sotorasib (LUMAKRAS) 320 mg Tablet Take 3 Tablets (960 mg) by mouth daily. 90 Tablet 3 03/05/20 24 Active OTHER 2 times daily. CBD pain relief cream Active lidocaine (LIDODERM) 5 % Adhesive Patch, Medicated Apply 1 Patch to affected area every 24 hours. Active naloxone (NARCAN) 4 mg/spray [place], Non-Aerosol EMERGENCY USE ONLY: Administer 1 spray (4 mg) in one nostril one time. May repeat in alternating nostrils every 2-3 min until responsive or EMS arrives. 2 Each 3 05/16/19 25 Active ALPRAZolam (XANAX) 0.25 mg tabletIndicat ions:Anxiety state TAKE 1 TABLET BY MOUTH EVERY 6 TO 8 HOURS NEEDED 90 Tablet 06/21/19 25 Active HYDROcodone-a cetaminophen (NORCO) 5-325 mg tabletIndicat ions:Non-smal l cell cancer of left lung (CMS/HCC) Take 1 Tablet by mouth every 4 hours as needed for Pain, Moderate. Max Daily Amount: 6 Tablets 20 Tablet 06/21/19 25 Active gabapentin (NEURONTIN) 300 mg capsuleIndica tions:Non-sma ll cell cancer of left lung (CMS/HCC) TAKE 1 CAPSULE BY MOUTH DAILY AT BEDTIME 30 Capsule 2 07/05/19 25 Active gabapentin (NEURONTIN) 300 mg capsuleIndica tions:Non-sma ll cell cancer of left lung (CMS/HCC) TAKE 1 CAPSULE BY MOUTH DAILY AT BEDTIME 30 Capsule 2 04/03/19 25 2024 Discontinued Active Problems Problem Noted Date Diagnosed Date Non-small cell cancer of left lung 03/27/2020 Erythrocytosis 11/15/2019 Encounter for screening for lung cancer 11/15/19 20 Elevated SGOT (AST) 11/15/2019 Encounters Date Type Department Care Team Description 07/04/2024 2:00 PM CDT Office Visit [facility] On[facility]ology [facility] [address] [place] [address] Malik Lewis MD Compression fracture of T9 vertebra with routine healing, subsequent encounter (Primary Dx) 07/04/2024 Refill [facility] [place] [address] [place] [address] Malik Lewis MD Non-small cell cancer of left lung (CMS/HCC) 07/03/2024 Orders Only [facility] Hematology [place] [place] [address] Malik Lewis MD Compression fracture of T10 vertebra, initial encounter ([facility]) (Primary Dx) 07/02/2024 External Device Data STL ABSTRACTION Provider, Abstract 07/02/2024 Orders Only [facility] H[facility]ology [place] [place] [id number] Malik Lewis MD 06/20/2024 Orders Only [facility] Oncology and Hematology - [place] [address] [place] [address] Malik Lewis MD 06/20/2024 Refill [facility] and Hematology - [place] [address] Malik Lewis MD Anxiety state; Non-small cell cancer of left lung (CMS/HCC) 05/27/2024 Orders Only [facility]ematology - [place] [address] Malik Lewis MD 05/21/2024 External Device Data STL ABSTRACTION Provider, Abstract 05/16/2024 9:15 AM FRINGE MAKER Office Visit [facility] Hematology - [place] [address] [place] [address] Malik Lewis MD Non-small cell cancer of left lung (CMS/HCC) (Primary Dx) 05/13/2024 Refill [facility]ology - [place] [address] [place] [address] Malik Lewis MD Anxiety state 05/12/2024 Refill [facility]ematology - [place] [address] [place] [address] Malik Lewis MD Anxiety state 05/10/2024 Abstract [facility] - [place] [address] [place] [address] Malik Lewis MD 05/08/2024 External Device Data STL ABSTRACTION Provider, Abstract 05/08/2024 External Device Data STL ABSTRACTION Provider, Abstract from Last 3 Months Family History Medical History Relation Name Comments Cancer Father Heart Disease Father Cancer Mother Heart Disease Mother Relation Name Status Comments Brother Alive Father Mother Sister Alive Social History Tobacco Use Types Packs/Day Years Used Date Smoking Tobacco: Some Days Cigarettes 1 40.8 Started: 10/02/2023 Smokeless Tobacco: Never Tobacco Cessation:Ready [...] Sign Reading Time Taken Comments Blood Pressure 137/85 07/04/2024 1:49 PM CDT Pulse 84 07/04/2024 1:49 PM CDT Temperature 36.5 C (97.7 F) 07/04/2024 1:49 PM CDT Respiratory Rate 15 07/04/2024 1:49 PM CDT Oxygen Saturation 93% 07/04/2024 1:49 PM CDT Inhaled Oxygen Concentration - - Weight 67.9 kg (149 lb 12.8 oz) 07/04/2024 1:49 PM CDT Height 172.7 cm (5' 8 ) 01/10/2022 10:3 3 AM CDT Body Mass Index 22.78 01/10/2022 10:33 AM CDT Plan of Treatment Health Maintenance Due Date Last Done Comments DTAP/TDAP/TD VACCINES (1 - Tdap) 1974 PNEUMOCOCCAL VACCINE 50+ YEARS (1 of 2 - PCV) 12/23/18 74 BREAST CANCER SCREENING 1994 COLORECTAL SCREENING 12/24/1999 Colorectal Cancer Screening 12/24/1999 FIT-DNA Q 3 years 12/24/1999 FIT/FOBT Q 1 year 12/24/1999 Flex Sig/CT Colonography Q 5 years 12/24/1999 ZOSTER VACCINE (1 of 2) 2004 OSTEOPOROSIS SCREENING 12/24/2019 INFLUENZA VACCINE (#1) 2023 RSV VACCINE (60+ or ) (1 - 1-dose 75+ series) 2029 Procedures Procedure Name Priority Date/Time Associated Diagnosis Comments CBC MIXED CELL DIFFERENTIAL Routine 07/02/2024 3:44 PM CDT COMPREHENSIVE METABOLIC PANEL Routine 07/02/2024 7:59 AM CDT CREATININE Routine 06/20/2024 3:[address] CHEST W CONTRAST Routine 06/20/2024 1 0:42 AM CDT CBC WITH DIFFERENTIAL Routine 05/14/2024 4:26 PM FRINGE MAKER from Last 3 Months Results * CBC MIXED CELL DIFFERENTIAL (07/02/2024 3:44 PM CDT) Blood us Malik Lewis MD HEMATOLOGY ORDERABLES Final Res ult * COMPREHENSIVE METABOLIC PANEL (07/02/2024 7:59 AM CDT) Blood us Malik Lewis MD CHEMISTRY ORDERABLES Final Resu lt * CREATININE (06/20/2024 3:09 PM CDT) Blood us Malik Lewis MD CHEMISTRY ORDERABLES Final Resu lt * CT CHEST W CONTRAST (06/20/2024 10:42 AM CDT) Anatomical Region Laterality Modality Chest Computed Tomogra phy us Malik Lewis MD CT ORDERABLES Final Result * CBC WITH DIFFERENTIAL (05/14/2024 4:26 PM FRINGE MAKER) Blood us Malik Lewis MD HEMATOLOGY ORDERABLES Final Res ult from Last 3 Months Insurance MEDICARE PART A AND B [employer] Medicare Part D
--- OUTSIDE RECORDS SUMMARY | 2024-07-25 06:47 | XMS_ITS | Referral Summary ---
Author Organization [facility] [address] [facility] [address] Address [address] [place] [address] Care Team Providers Care Shafting Cleaner Name Role Phone Melida Ibarra NP Primary Care Provider [phone] Encounters Date Type Department Care Team Description 05/21/2024 10:45 AM TIMBER CRUISER Office Visit [facility] Cardiology at [address] [place] [address] Regan Peraza MD HFrEF (heart [...] tablets (960 mg total) by mouth daily 4 Active simvastatin (ZOCOR) 20 mg tabletIndications:L ipid screening,Coronary artery disease involving [place] coronary artery of [place] heart without angina pectoris Take 1 tablet (20 mg total) by mouth nightly 30 tablet 11 4 01/10/20 25 Active metoprolol XL (TOPROL-XL) 25 mg extended release tablet TAKE 1 TABLET(25 MG) BY MOUTH EVERY MORNING 90 tablet 3 4 Active sacubitriL-valsarta n (Entresto) 24-26 mg tabletIndications:D ilated cardiomyopathy (HCC) TAKE 1 TABLET BY MOUTH TWICE DAILY 180 tablet 1 5 Active Eliquis 5 mg tablet TAKE 1 TABLET(5 MG) BY MOUTH EVERY 12 HOURS 180 tablet 1 5 Active Active Problems Problem Noted Date [...] on file Legal Sex Female 6:00 AM TIMBER CRUISER Gender Identity Not on file Sexual Orientation Not on file Last Filed Vital Signs Vital Sign Reading Time Taken Comments Blood Pressure 128/82 05/21/2024 10:59 AM TIMBER CRUISER Pulse 86 05/21/2024 10:59 AM TIMBER CRUISER Temperature - - Respiratory Rate - - Oxygen Saturation 90% 05/21/2024 10:59 AM TIMBER CRUISER Inhaled Oxygen Concentration - - Weight 68.9 kg (152 lb) 05/21/2024 10:59 AM TIMBER CRUISER Height 172.7 cm (5' 8 ) 05/21/2024 10:59 AM TIMBER CRUISER Body Mass Index 23.11 05/21/2024 10:59 AM TIMBER CRUISER Plan of Treatment Not on file Insurance MEDICARE PH[employer]ICIANS [facility] [place] Care Teams Shafting Cleaner Relationship Specialty Start Date End Date Melida Ibarra NP [address] [place] [address] [address] PCP - General Cardiovascular Disease 07/02/24
--- OUTSIDE RECORDS SUMMARY | 2024-07-25 06:47 | XMS_ITS | Clinical Summary ---
Author Organization [facility] [address] Address [address] [place] [address] Care Team Providers Care Bone Cooking Operator Name Role Phone Melida Ibarra NP Primary Care Provider [phone] Allergies Active Allergy Reactions Criticality Noted Date [...] mg tabletIndications:L ipid screening,Coronary artery disease involving [place] coronary artery of [place] heart without angina pectoris Take 1 tablet [...] Department Care Team Description 05/21/2024 10:45 AM DIRECTOR SOCIAL SERVICE Office Visit [facility] Medical [facility] Cardiology at [address] [place] [address] Regan Peraza MD HFrEF (heart [...] on file Legal Sex Female 6:00 AM DIRECTOR SOCIAL SERVICE Gender Identity Not on file Sexual Orientation Not on file Obstetrics History Last Filed Vital Signs Vital Sign Reading Time Taken Comments Blood Pressure 128/82 05/21/2024 10:59 AM DIRECTOR SOCIAL SERVICE Pulse 86 05/21/2024 10:59 AM DIRECTOR SOCIAL SERVICE Temperature - - Respiratory Rate - - Oxygen Saturation 90% 05/21/2024 10:59 AM DIRECTOR SOCIAL SERVICE Inhaled Oxygen Concentration - - Weight 68.9 kg (152 lb) 05/21/2024 10:59 AM DIRECTOR SOCIAL SERVICE Height 172.7 cm (5' 8 ) 05/21/2024 10:59 AM DIRECTOR SOCIAL SERVICE Body Mass Index 23.11 05/21/2024 10:59 AM DIRECTOR SOCIAL SERVICE Plan of Treatment Health Maintenance Due Date [...] 12/30/2021, Additional history exists Insurance MEDICARE [facility] [place] Care Teams Bone Cooking Operator Relationship Specialty Start Date End Date Melida Ibarra NP [address] [place] [address] [address] PCP - General Cardiovascular Disease 07/02/24
== END 2024-07-25 06:44 | disposition home or self-care (01) ==
PROVIDERS: PCP Clinical Nurse Specialist; Visit Provider Internal Medicine Hematology & Oncology
DX: S22.070A Wedge compression fracture of T9-T10 vertebra, initial encounter for closed fracture (principal); X58.XXXA Exposure to other specified factors, initial encounter
CPT/HCPCS: 72157; A9579

== ENCOUNTER 2024-08-12 14:56 | Inpatient (IN) | payer MEDICARE, OTHER, SELFPAY ==
[2024-08-12] VITALS (13 sets, daily range): BP systolic 110–152; BP diastolic 59–100; PULSE 103–159; RESP 16–26; TEMP 36.7–37.3; O2SAT 78–98; BMI 22.3
--- NOTE | ~2024-08-12 | CT_ITS ---
EXAMINATION: CTA chest PE protocol DATE: 08/13/2024 11:15 INDICATION: Tachycardia. Acute hypoxia. TECHNIQUE: Computed tomography (CT) pulmonary angiogram of the chest was performed with 100 mL Omnipa que-350 intravenous contrast. Additional 3D reconstructions utilizing coronal maximum intensity proje ction (MIP) were performed. Automated exposure control and iterative reconstruction technique were em ployed. The dose-length product was 341.51 mGy-cm. COMPARISON: Chest CT dated 08/12/2024 FINDINGS: No pulmonary embolism. Moderate emphysema. There are small bilateral pleural effusions. Left perihila r masslike region of consolidation in the dependent left lower lobe in size since CT dated 09/25/2023 c onsistent with response to reported treatment of a primary non-small cell lung cancer. There are nadine ons of tree-in-bud opacities in the lingula and bilateral lower lobes along with small regions of dep endent consolidation the bilateral lower lobes which is new since recent CT dated 06/20/2024 and most c onsistent with pneumonia. There are a few larger pulmonary nodules probably smooth margins in the victorino ateral lower lobes the largest in the right lower lobe measuring 8-9 mm which are without significant interval change since 12/27/2022 consistent with old granulomatous disease. Heart size is normal. No pericardial effusion. Right internal jugular central venous port catheter with distal tip at the sup erior cavoatrial junction. Thoracic aorta is normal in caliber with no dissection. No pathologically enlarged thoracic lymphadenopathy. Cholecystectomy clips the gallbladder fossa. Visualized upper abdo men is otherwise unremarkable. Again seen are relatively recent-appearing T9 and T10 compression frac tures. IMPRESSION: 1. No pulmonary embolism. 2. Moderate emphysema. 3. Mass in the posterior lingula consistent with treated lung cancer. 4. Increasing tree-in-bud opacities in the lingula and bilateral lower lobes bladder with small regio ns of dependent consolidation consistent with worsening pneumonia. 5. Small bilateral pleural effusions. Reviewed, dictated and finalized at location A. IMPRESSION: 1. No pulmonary embolism. 2. Moderate emphysema. 3. Mass in the posterior lingula consistent with treated lung cancer. 4. Increasing tree-in-bud opacities in the lingula and bilateral lower lobes bl adder with small regions of dependent consolidation consistent with worsening p neumonia. 5. Small bilateral pleural effusions.
--- NOTE | ~2024-08-12 | XR_ITS ---
XR chest 1V portable Ordering provider: Demarcus Khan MD History: 68 years Female with . SOB . Comparison: April 07, 2024 FINDINGS: MEDIASTINUM: The cardiac silhouette is slightly enlarged. Right permacath with the tip overlying the superior vena cava. Device is projected over the left hemithorax. Congestive belem. LUNGS: No effusions or pneumothorax. Bilateral interstitial and alveolar opacification suggestive of pulmonary edema versus pneumonia. Clinical correlation advised. OTHER: No free air under the diaphragm. Degenerative changes of the spine. IMPRESSION: Bilateral pneumonia versus pulmonary edema. Reviewed, dictated and finalized at location A.
--- NOTE | ~2024-08-12 | CT_ITS ---
CT diagnostic chest wo con Ordering provider: Minh Watson MD History: 68 years Female with . Shortness of breath . Comparison: July 17, 2024 Technique: CT chest without IV contrast. Radiation reduction technique utilized. The dose-length product was 172.44 mGy-cm. FINDINGS: VISUALIZED THORACIC INLET: Right Port-A-Cath with the tip in the superior vena cava. MEDIASTINUM: Aorta/coronary arteries: Mild atheromatous disease. Heart/other: The heart is not enlarged. Trace of pericardial effusion seen anteriorly. Lymph nodes: No mediastinal or hilar adenopathy. LUNGS: Atelectasis versus pneumonia is seen in the left upper lobe with underlying mass is marked exc luded. Right lower lobe and to a lesser extent the left lower lobe atelectasis is versus pneumonia l aterally.. Nodule is seen in the lingula, right lower lobe, and left lower lobe which are unchanged f rom previous examination on the largest in the left upper lobe measures 1.5 cm suggestive of metastat ic lesions.. No pulmonary masses. No effusions. No pneumothorax. Underlying emphysematous changes. VISUALIZED UPPER ABDOMEN: Status post cholecystectomy. Otherwise, the visualized upper abdomen is nor mal. MUSCULOSKELETAL: Soft tissues: The superficial soft tissues are normal. Bones: Compression fracture of T9 and T10 with sclerotic changes is noted in the superior endplate of T9 which is not seen in the previous study suggestive of acute compression fracture.. No change in t he compression fracture of T10.. MRI evaluation advised. Age appropriate degenerative changes of the spine. IMPRESSION: 1. Atelectasis versus pneumonia seen in the left upper lobe unchanged from previous examination. Und erlying mass is not excluded. 2. Focal areas of atelectasis versus pneumonia seen in the right and left lower lobe. 3. Multiple nodules unchanged from previous examination. 4. Underlying emphysematous changes. 5. Compression fractures of T9 and T10 with increased compression and T9 compared to previous study. Reviewed, dictated and finalized at location A. IMPRESSION: 1. Atelectasis versus pneumonia seen in the left upper lobe unchanged from pre vious examination. Underlying mass is not excluded. 2. Focal areas of atelectasis versus pneumonia seen in the right and left lowe r lobe. 3. Multiple nodules unchanged from previous examination. 4. Underlying emphysematous changes. 5. Compression fractures of T9 and T10 with increased compression and T9 mihai red to previous study.
--- NOTE | ~2024-08-12 | XR_ITS ---
CHEST RADIOGRAPH, PA AND LATERAL CLINICAL HISTORY: pneumonia . COMPARISON: 08/12/2024 TECHNIQUE: PA and lateral views of the chest. FINDINGS The cardiomediastinal silhouette is unremarkable. Redemonstration of bilateral asymmetry, pulmonary nodules, and hyperexpansion, consistent with patien t's history. Small bilateral pleural effusions persist, along with interstitial thickening bilaterally. Right internal jugular central venous port catheter identified with its tip projecting over the cavoa trial junction. Generator for a pacemaker projects over the left mid chest wall, with absence of the pacemaker leads. IMPRESSION: Small bilateral pleural effusions (unchanged) with a bilateral interstitial thickening, asymmetry and hyperexpansion. Reviewed, dictated and finalized at location A. IMPRESSION: Small bilateral pleural effusions (unchanged) with a bilateral interstitial thi ckening, asymmetry and hyperexpansion.
--- OUTSIDE RECORDS SUMMARY | 2024-08-12 14:58 | XMS_ITS | Continuity of Care Document ---
Author Organization [facility] Address [address] [place] [address] Phone Care Team Providers Care Associate Professor Of Art History Name Role Phone Beronica Morgan Unavailable Unavailable Advance Directives Directive Yes / No Effective Date File Name No Information Encounters Encounter Description Practice Location Reason(s) For Visit Diagnoses Date Provider Providers Copied on Encounter [facility], [address], [place], [place], [id number], [place] tel:[phone] [facility] No Information Apr-3 0-200 1 Cathy Loco. [address] , [address], [place], [address], [place]. tel:[phone] Family History Family Member Type Diagnosis Age [...]
--- OUTSIDE RECORDS SUMMARY | 2024-08-12 14:58 | XMS_ITS | Data Portability ---
Author Organization [facility] Address [address] [place] [address] Assessment No assessment recorded. Plan of Treatment Reminders Order Date Submit Date Provider Last Modified By Organization Details Last Modified Time Details Appointments None recorded. Lab CMP, serum or plasma 2019 [facility], [address] [place] [address], [address], [place], [address], 0 07:08:45 CBC 2019 [facility], [address] [place] [address], [address], [place], [address], 0 07:08:46 lipid panel, serum 2019 [facility], [address] [place] [address], [address], [place], [address], 0 07:08:46 TSH, ultra-sens itive, serum 2019 [facility], [address] [place] [address], [address], [place], [address], 0 14:50:00 TSH + free T4, serum 2019 [facility], [address] [place] [address], [address], [place], [address], 0 07:08:45 T3, free, serum or plasma 2019 020 [facility], [address] [facility], [address], [place], [address], 0 07:08:47 Referral None recorded. Procedures None recorded. Surgeries None recorded. Imaging None recorded. Medication Orders lisinopril 5 mg tablet 2021 022 [facility][id number], [address], [place], [place], [id number], 2 16:31:34 lisinopril 5 mg tablet [address] [facility] #[id number], [address], [place], [place], [id number], 0 13:02:45 hydroxyzin e HCl 25 mg tablet 2019 020 [facility] #[id number], [address], [place], [place], [id number], 2 15:58:36 hydrochlor othiazide 12.5 mg capsule 2019 020 [facility], [address] [place], [address], 0 12:10:54 Patient TargetsNo targets recorded. Patient Instructions Encounter Date Encounter Id Patient Instructions Last Modified By Organization Details Last Modified Time 08/18/2022 [id number] learning about high blood pressure [email or web address] Not available 08/18/2022 13:29:19 Reason for Referral None Reported. Results Created Date Observation Date Name Description Value Unit Range Abnormal Flag Note LastModifiedBy Organization Detail LastModifiedTime 06/17/19 20 06/18/2019 TSH + free T4, serum TSH 1.630 uIU/m L 0.450- 4.500 Not Available [facility] ([facility]) [address], [place], [address], 06/18/2019 07:08:45 06/17/19 20 06/18/2019 TSH + free T4, serum T4,free(dire ct) 1.43 NG/dL 0.82-1 .77 Not Available [facility] ([facility]) [address] [place], [address], 06/18/2019 07:08:45 06/17/19 20 06/18/2019 CMP, serum or plasm a glucose 94 mg/dL 65-99 Not Available [facility] ([facility]) [address] [place], [address], 06/18/2019 07:08:45 06/17/19 20 06/18/2019 CMP, serum or plasm a BUN 13 mg/dL 8-27 Not Available [facility] ([facility]) [address] [place], [address], 06/18/2019 07:08:45 06/17/19 20 06/18/2019 CMP, serum or plasm a creatinine 0.85 mg/dL 0.57-1 .00 Not Available [facility] ([facility]) [address] [place], [address], 06/18/2019 07:08:45 06/17/19 20 06/18/2019 CMP, serum or plasm a eGFR if nonafricn AM 73 mL/mi n/1.7 3 >59 Not Available [facility] ([facility]) [address] [place], [address], 06/18/2019 07:08:45 06/17/19 20 06/18/2019 CMP, serum or plasm a eGFR if africn AM 84 mL/mi n/1.7 3 >59 Not Available [facility] ([facility]) [address] [place], [address], 06/18/2019 07:08:45 06/17/19 20 06/18/2019 CMP, serum or plasm a BUN/creatini ne ratio 15 12-28 Not Available [facility] ([facility]) [address] [place], [address], 06/18/2019 07:08:45 06/17/1906/18/2019 CMP, serum or plasm a sodium 140 mmol/ L 134-14 4 Not Available [facility] ([facility]) [address] [place], [address], 06/18/2019 07:08:45 06/17/1906/18/2019 CMP, serum or plasm a potassium 4.5 mmol/ L 3.5-5. 2 Not Available [facility] ([facility]) [address] [place], [address], 06/18/2019 07:08:45 06/17/1906/18/2019 CMP, serum or plasm a chloride 100 mmol/ L 96-106 Not Available [facility] ([facility]) [address] [place], [address], 06/18/2019 07:08:45 06/17/1906/18/2019 CMP, serum or plasm a carbon dioxide, total 25 mmol/ L 20- Not Available [facility] ([facility]) [address] [place], [address], 06/18/2019 07:08:45 06/17/1906/18/2019 CMP, serum or plasm a calcium 9.2 mg/dL 8.7-10 .3 Not Available [facility] ([facility]) [address] [place], [address], 06/18/2019 07:08:45 06/17/1906/18/2019 CMP, serum or plasm a protein, total 6.5 g/dL 6.0-8. 5 Not Available [facility] ([facility]) [address] [place], [address], 06/18/2019 07:08:45 06/17/1906/18/2019 CMP, serum or plasm a albumin 4.1 g/dL 3.8-4. 8 Not Available [facility] ([facility]) [address] [place], [address], 06/18/2019 07:08:45 06/17/19 20 06/18/2019 CMP, serum or plasm a globulin, total 2.4 g/dL 1.5-4. 5 Not Available [facility] ([facility]) [address] [place], [address], 06/18/2019 07:08:45 06/17/19 20 06/18/2019 CMP, serum or plasm a A/G ratio 1.7 1.2-2. 2 Not Available [facility] ([facility]) [address] [place], [address], 06/18/2019 07:08:45 06/17/19 20 06/18/2019 CMP, serum or plasm a bilirubin, total 0.3 mg/dL 0.0-1. 2 Not Available [facility] ([facility]) [address] [place], [address], 06/18/2019 07:08:45 06/17/19 20 06/18/2019 CMP, serum or plasm a alkaline phosphatase 66 IU/L 39-117 Not Available [facility] ([facility]) [address] [place], [address], 06/18/2019 07:08:45 06/17/19 20 06/18/2019 CMP, serum or plasm a AST (SGOT) 21 IU/L 0-40 Not Available [facility] ([facility]) [address] [place], [address], 06/18/2019 07:08:45 06/17/19 20 06/18/2019 CMP, serum or plasm a ALT (SGPT) 11 IU/L 0-32 Not Available [facility] ([facility]) [address] [place], [address], 06/18/2019 07:08:45 06/17/19 20 06/18/2019 CBC WBC 7.3 x10e3 /uL 3.4-10 .8 Not Available [facility] ([facility]) [address] [place], [address], 06/18/2019 07:08:46 06/17/19 20 06/18/2019 CBC RBC 4.96 x10e6 /uL 3.77-5 .28 Not Available [facility] ([facility]) [address] [place], [address], 06/18/2019 07:08:46 06/17/19 20 06/18/2019 CBC hemoglobin 17.0 g/dL 11.1-1 5.9 above high normal Not Available [facility] ([facility]) [address] [place], [address], 06/18/2019 07:08:46 06/17/19 20 06/18/2019 CBC hematocrit 48.9 % 34.0-4 6.6 above high normal Not Available [facility] ([facility]) [address] [place], [address], 06/18/2019 07:08:46 06/17/19 20 06/18/2019 CBC MCV 99 fL 79-97 above high normal Not Available [facility] ([facility]) [address] [place], [address], 06/18/2019 07:08:46 06/17/19 20 06/18/2019 CBC MCH 34.3 pg 26.6-3 3.0 above high normal Not Available [facility] ([facility]) [address] [place], [address], 06/18/2019 07:08:46 06/17/19 20 06/18/2019 CBC MCHC 34.8 g/dL 31.5-3 5.7 Not Available [facility] ([facility]) [address] [place], [address], 06/18/2019 07:08:46 06/17/19 20 06/18/2019 CBC RDW 11.8 % 11.7-1 5.4 Not Available [facility] ([facility]) [address], [place], [address], 06/18/2019 07:08:46 06/17/19 20 06/18/2019 CBC platelets 190 x10e3 /uL 150-45 0 Not Available [facility] ([facility]) [address], [place], [address], 06/18/2019 07:08:46 06/17/19 20 06/18/2019 CBC NRBC HEAD 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 ENGINEER Not Available [facility] ([facility]) [address], [place], [address], 06/18/2019 07:08:46 06/17/19 20 06/18/2019 lipid panel , serum cholesterol, total 177 mg/dL 100-19 9 Not Available [facility] ([facility]) [address], [place], [address], 06/18/2019 07:08:46 06/17/19 20 06/18/2019 lipid panel , serum triglyceride s 74 mg/dL 0-149 Not Available [facility] ([facility]) [address], [place], [address], 06/18/2019 07:08:46 06/17/19 20 06/18/2019 lipid panel , serum HDL cholesterol 66 mg/dL >39 Not Available [facility] ([facility]) [address], [place], [address], 06/18/2019 07:08:46 06/17/19 20 06/18/2019 lipid panel , serum VLDL cholesterol po 15 mg/dL 5-40 Not Available [facility] ([facility]) [address], [place], [address], 06/18/2019 07:08:46 03/30/20 20 06/18/2019 lipid panel , serum LDL cholesterol calc 96 mg/dL 0-99 Not Available [facility] ([facility]) [address] [place], [address], 06/18/2019 07:08:46 06/17/19 20 06/18/2019 lipid panel , serum comment: HEAD 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 ENGINEER Not Available [facility] ([facility]) [address] [facility], [place], [address], 06/18/2019 07:08:46 06/17/19 20 06/18/2019 lipid panel , serum LDL/HDL ratio 1.5 ratio 0.0-3. 2 LDL/H DL Ratio Men Women 1/2 Avg.R isk 1.0 1.5 Avg.R isk 3.6 3.2 2X Avg.R isk 6.2 5.0 3X Avg.R isk 8.0 6.1 Not Available [facility] ([facility]) [address] [facility], [place], [address], 06/18/2019 07:08:46 06/17/19 20 06/18/2019 T3, free, serum or plasm a triiodothyro nine (T3), free 2.5 pg/mL 2.0-4. 4 Not Available [facility] ([facility]) [address] [place], [address], 06/18/2019 07:08:47 01/09/20 20 01/08/2020 CT, chest , w/o contr ast No observ ation record ed. [address], [place], [address], 01/14/2020 12:32:15 01/10/20 20 01/10/2020 US, liver No observ ation record ed. [facility] [address] [facility] [address], [place], [address], 01/14/2020 12:32:16 01/15/20 20 01/08/2020 LDCT, chest , for lung cance r alix bhatti No observ ation record ed. [email or web address] Not Available 2019 12:48:24 01/20/20 20 01/20/2020 XR, chest No observ ation record ed. [address] [address], [place], [address], 01/24/2020 13:38:28 01/20/20 20 01/20/2020 biops y, lung, ct lizandro nce (PROC ) No observ ation record ed. [address] [address], [place], [address], 01/24/2020 13:38:17 01/20/20 20 01/20/2020 XR, chest No observ ation record ed. [address] [address], [place], [address], 01/24/2020 13:37:58 01/24/20 20 01/20/2020 XR, chest No observ ation record ed. [email or web address] Not Available 2019 12:48:25 02/18/20 20 02/18/2020 MRI, brain + brain stem, w/wo contr ast No observ ation record ed. [address] [address], [place], [address], 03/05/2020 18:03:36 03/05/20 20 03/05/2020 PET-C T, skull base to mid-t high scan No observ ation record ed. [address] (Imaging) [address] [place] [address], [place], [address], 03/05/2020 20:23:44 03/18/20 20 03/18/2020 NM, bone scan No observ ation record ed. [address] [address], [place], [address], 03/19/2020 11:08:17 05/27/19 21 05/11/2020 fluor oscop y (PROC ) No observ ation record ed. [id number] Not Available 2020 17:35:41 05/27/19 21 05/11/2020 XR, chest No observ ation record ed. Not Available 2020 17:35:56 07/21/19 21 07/20/2020 CT, chest , w/ contr ast No observ ation record ed. [address], [address], 07/29/2020 14:29:30 09/18/19 21 09/17/2020 CT, chest , w/ contr ast No observ ation record ed. [address], [address], 10/07/2020 18:18:43 12/22/19 21 12/21/2020 CT, chest , w/ contr ast No observ ation record ed. [address], [address], 12/24/2020 11:13:51 04/05/19 22 04/05/2021 imagi ng/di agnos tic resul t No observ ation record ed. [address] [address], [place], [address], 04/26/2021 16:15:38 06/29/19 22 06/28/2021 CT, angio gram, chest , w/ contr ast No observ ation record ed. [address] [facility], [place], [address], 06/29/2021 09:22:34 09/17/19 22 09/16/2021 CT, chest , w/ contr ast No observ ation record ed. [address] [address], [place], [address], 10/04/2021 12:53:12 09/20/19 22 09/16/2021 CT, chest , w/ contr ast No observ ation record ed. [address], [place], [address], 10/04/2021 12:53:40 11/24/19 22 11/23/2021 CT, angio gram, chest , w/ contr ast No observ ation record ed. [address], [place], [address], 11/25/2021 11:09:08 01/26/20 22 01/25/2022 CT, angio gram, chest , w/ contr ast No observ ation record ed. [address] [facility], [place], [address], 01/25/2022 14:27:42 06/01/19 23 05/31/2022 CT, chest , w/ contr ast No observ ation record ed. [address] [address], [place], [address], 06/07/2022 10:02:02 09/03/19 23 09/01/2022 CT, abdom en + pelvi s, w/ contr ast No observ ation record ed. [address] [address], [place], [address], 09/06/2022 16:43:15 09/29/19 23 09/28/2022 CT, chest , w/ contr ast No observ ation record ed. [address] [facility], [place], [address], 10/01/2022 16:09:11 12/28/19 23 12/27/2022 CT, chest + abdom en + pelvi s, w/ contr ast No observ ation record ed. [address] [address], [place], [address], 12/27/2022 14:15:52 04/03/19 24 04/03/2023 CT, chest , w/ contr ast No observ ation record ed. [address] [address], [place], [address], 04/12/2023 05:40:43 06/21/19 24 06/19/2023 CT, chest , w/ contr ast No observ ation record ed. [address] [address], [place], [address], 07/07/2023 10:11:02 06/22/19 24 06/19/2023 CT, chest , w/ contr ast No observ ation record ed. [address] [address], [place], [address], 07/07/2023 10:13:20 09/25/19 24 09/25/2023 CT, abdom en + pelvi s, w/ contr ast No observ ation record ed. [address] [address], [place], [address], 10/04/2023 05:18:05 10/13/19 24 10/12/2023 PET, skull base to mid-t high No observ ation record ed. [address] [address], [place], [address], 10/16/2023 10:39:34 10/14/19 24 10/14/2023 XR, chest , 2 view No observ ation record ed. [address] [address], [place], [address], 10/16/2023 10:42:31 10/14/19 24 10/14/2023 CT, angio gram, chest , w/ contr ast No observ ation record ed. [address] [address], [place], [address], 10/16/2023 10:42:52 10/15/19 24 10/15/2023 US, duple x, venou s, lower extre mity No observ ation record ed. [address] [address], [place], [address], 10/16/2023 10:43:07 10/16/19 24 10/16/2023 CT, heart , w/o contr ast, w/ coron andrea calci um score No observ ation record ed. [address], [place], [address], 10/16/2023 17:48:39 10/18/19 24 10/18/2023 XR, chest , 2 view No observ ation record ed. [id number] [facility] [address], [place], [address], 10/29/2023 07:39:48 Result Notes None recorded. Problems Name Problem SNOMED Code Status Onset Date Resolution Date Notes Provider Name and Address Organization Details Recorded Time Essential hypertension 06898767 Active 2019 Freddy Gallagher MD Attn: Dionte han,[address] [facility], [place], [address], [place] [facility] 0 14:45:57 Multiple bruising 966317713 Active 2019 Freddy Gallagher MD Attn: Dionte han,[address] [facility], [place], [address], [place] [facility] 0 14:47:00 Palmar erythema 41579922 Active 2019 Freddy Gallagher MD Attn: Dionte han,[address] [facility], [place], [address], [place] [facility] 0 14:47:22 Erythrocytosis 561793385 Active 2019 Freddy Gallagher MD Attn: Dionte han,[address] [facility], [place], [address], [place] [facility] 0 18:03:17 Disease of liver 786162099 Active 2019 Freddy Gallagher MD Attn: Dionte han,[address] [facility], [place], [address], [place] [facility] 0 11:30:11 Anxiety 47904773 Active 2019 Freddy Gallagher MD Attn: Dionte han,[address] [place], [address], [facility] 0 12:59:08 Adenocarcinoma of lung 023080417 Active 2022 Freddy Gallagher MD Attn: Dionte han,[address] [facility], [place], [address], [facility] 3 13:24:53 Problem Notes None recorded. Procedures Surgical History Date Name Laterality Status Provider Name and Address Organization Details Recorded Time Tonsillectomy completed Esmer Wallis MA [facility] 06/17/2019 13:57:56 Total hysterectomy completed Esmer Wallis MA [facility] 06/17/2019 13:58:01 cholecystectomy completed Esmer vázquez MA [facility] 06/17/2019 13:58:20 Imaging Results None recorded. Procedure Notes None recorded. Medical Equipment None Reported. Allergies Allergen ID Allergen Name Allergen Category Reaction Reaction Severity Criticality Documentation Date Start Date Code Code System Note Provider Name and Address Organization Details Recorded Time 602593 sertralin e medicatio n abdominal pain severe Not available 01/28/2020 73112 RxNorm Freddy Gallagher MD Attn: Dionte han,[address] [facility], [place], [address], [facility] 0 12:48:26 Medications Name Sig Start Date [...] in Arterial blood by Pulse oximetry Systolic And Diastolic Provider Name and Address Organization Details Last Updated DateTime 2 172.72 cm 23 kg/m2 01252.4 5 g 98.1 [degF] 108 /min 99 % 99 % 110/60 mm[Hg] Esmer Wallis MA [facility] 2 16:00:04 Date Recorded Body height Body mass index (BMI) Body weight Body temperature Oxygen saturation Oxygen saturation in Arterial blood by Pulse oximetry Heart rate Systolic And Diastolic Provider Name and Address Organization Details Last Updated DateTime 0 172.72 cm 27.5 kg/m2 87211.2 2 g 98.1 [degF] 96 % 96 % 81 /min 138/92 mm[Hg] Esmer Wallis MA [facility] 0 13:59:53 Date Recorded Body height Body mass index (BMI) Body weight Heart rate Body temperature Oxygen saturation Oxygen saturation in Arterial blood by Pulse oximetry Systolic And Diastolic Provider Name and Address Organization Details Last Updated DateTime 3 172.72 cm 23.1 kg/m2 93002.0 4 g 101 /min 98.1 [degF] 98 % 98 % 126/78 mm[Hg] Esmer Wallis MA [facility] 3 12:50:49 Date Recorded Body height Provider Name an d Address Organization Details Last Updated DateTime 01/28/2020 172.72 cm Esmer Wallis MA [facility] 0 12:09:47 Social History Question Answer Notes LastModified by Organizat ion Details LastModified Time Tobacco Smoking Status Current Every Day Smoker Esmer Wallis MA null, [facility] 06/17/2019 13:57:04 What Was The Date [...] Smoked Tobacco? 40 Information not available 06/17/2019 Sex: Unknown Functional Status Question Answer Note LastModified by Organization D etails LastModified Time Do you or have you ever used any other forms of tobacco or nicotine? No Information not available 08/18/2022 Mental Status None recorded. Family History Relationship [...] SNOMED-CT Code Diagnosis ICD10 Code Diagnosis Note [id number] MD Severiano Butterfield (Adult Med) [address] [place] [address] 06/17/2019 13:44:23 06/18/2019 16:59:43 Essential hypertension 09114233 I10 Newly diagnosed Will start HCTZ 12.5 mg/d Multiple bruising 009676 006 T14.8XXA Palmar erythema 23455128 L53.8 [id number] MD Severiano Butterfield (Adult Med) [address] [place] [address] 07/15/2019 12:28:58 07/16/2019 16:42:08 Essential hypertension 43585028 I10 Stop HCTZ. Check BP daily. Call in three days. Reevaluate [id number] MD Severiano Butterfield (Adult Med) [address] [place] [address] 01/28/2020 11:39:06 01/29/2020 11:05:44 Essential hypertension 74855072 I10 Disease of liver 6070127 03 K76.9 Anxiety 90317523 F41.9 [id number] MD Severiano Butterfield (Adult Med) [address] [place] [address] 05/04/2021 15:50:21 05/05/2021 14:24:36 Essential hypertension 64119020 I10 Cont current regime [id number] MD Severiano Butterfield (Adult Med) [address] [place] [address] 08/18/2022 12:33:29 08/19/2022 13:57:28 Essential hypertension 42624068 I10 Cont current regime Labs drawn regularly by oncology Disease of liver 5484948 03 K76.9 Adenocarci noma of lung 900644649 C34.90 F/U oncology as scheduled Health Concerns Section Related Observation LastModified by Organization Detai ls LastModified Time None Recorded Concern Status LastModified by Organization Details LastModified Time None Recorded Advance Directives Directive None Recorded Payers Encounter Date Sequence Insurance Name Policy Number Policy Hensley Covered Member ID Hensley Member ID Guarantor Name 06/17/2019 1 [employer] (POS) [id number] Yessenia Wallis [id number] Yessenia Wallis 07/15/2019 1 [employer] (POS) [id number] Yessenia Wallis [id number] Yessenia Wallis 01/28/2020 1 *SELF PAY* Dayana Wallis 01/28/2020 1 [place] Yessenia Wallis [id number] Yessenia Wallis 05/04/2021 1 [place] Yessenia Wallis [id number] Yessenia Wallis 05/04/2021 [place] [facility] - [facility] Yessenia Wallis [id number] Yessenia Wallis 08/18/2022 1 [place] Yessenia Wallis [id number] Yessenia Wallis 08/18/2022 2 [employer] (MEDICARE SUPPLEMENT) Yessenia Wallis [id number] Yessenia Wallis Notes Date Note Type [...] sensations Freddy Gallagher MD Attn: Accounting,[address] [facility], [place], [address], [facility] 06/17/2019 15:01:07 07/15/2019 text/html Telephone visit due to Covid-19 precautions. Pt has been unable to tolerate 12.5 mg HCTZ. Feels weak, lightheaded about four hours after med is taken. She takes her BP daily. Systolic averages 130's while diastolic 85 - 92. Freddy Gallagher MD Attn: Accounting,[address] [facility], [place], [address], [place] [facility] 07/15/2019 13:09:34 01/28/2020 text/html Telephone visit due to Covid-19 precautions. She is requesting refills on BP meds. Recently diagnosed with non-small cell ca lung. Experiencing anxiety off and on Freddy Gallagher MD Attn: Accounting,[address] [facility], [place], [address], [place] [facility] 01/28/2020 13:03:03 05/04/2021 text/html Needs refills on BP meds. Currently being treaed for adenoca left lung Freddy Gallagher MD Attn: Accounting,[address] [facility], [place], [address], [facility] 05/04/2021 16:31:53 08/18/2022 text/html Here for regular visit. She feels good Freddy Gallagher MD Attn: Accounting[address] [facility], [place], [address], [facility] 08/18/2022 13:30:20 OBGyn Episode No OBEpisode recorded.
--- OUTSIDE RECORDS SUMMARY | 2024-08-12 14:58 | XMS_ITS | Encounter Summary ---
Author Organization [employer] Address [address] [place] [address] Care Team Providers Care Box Blank Machine Operator Name Role Phone Freddy Gallagher MD Primary Care Provider Encounter Details Date Type Department Care Team (Late st Contact Info) Description 03/25/2020 Chart Note [facility] Radiation Therapy [address] [place] [phone] [place] [address] [place] [address] Social History Tobacco Use Types [...] COVID-19? 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
--- OUTSIDE RECORDS SUMMARY | 2024-08-12 14:58 | XMS_ITS | Clinical Summary ---
Author Organization [facility] Address [address] [address] Care Team Providers Care Front Clerk Name Role Phone Unavailable Primary Care Provider Unavailabl e Allergies Active Allergy Reactions Criticality Noted Date Comments Rhteufj-Ljp-Ivl Reductase Inhibitors Muscle Pain Low 08/09/2024 Medications acetaminophen (TYLENOL) 325 mg tablet Take [...] daily in the morning. 10/18/19 24 Active sacubitriL-tonny sartan (Entresto) 24-26 mg Tablet Take 1 Tablet by mouth 2 times daily. Active sotorasib (LUMAKRAS) 320 mg Tablet Take 3 Tablets (960 mg) by mouth daily. 90 Tablet 3 03/05/20 24 Active OTHER 2 times daily. CBD pain relief cream Active lidocaine (LIDODERM) 5 % Adhesive Patch, Medicated Apply 1 Patch to affected area every 24 hours. Active naloxone (NARCAN) 4 mg/spray [place], Non-Aerosol EMERGENCY USE ONLY: Administer 1 spray (4 mg) in one nostril one time. May repeat in alternating nostrils every 2-3 min until responsive or EMS arrives. 2 Each 3 05/16/19 25 Active HYDROcodone-ac etaminophen (NORCO) 5-325 mg tabletIndicati ons:Non-small cell cancer of left lung (CMS/HCC) Take 1 Tablet by mouth every 4 hours as needed for Pain, Moderate. Max Daily Amount: 6 Tablets 20 Tablet 06/21/19 25 Active gabapentin (NEURONTIN) 300 mg capsuleIndicat ions:Non-small cell cancer of left lung (CMS/HCC) TAKE 1 CAPSULE BY MOUTH DAILY AT BEDTIME 30 Capsule 2 07/05/19 25 Active ibuprofen (ADVIL;MOTRIN) 100 mg/5 mL suspension Take 200 mg by mouth every 6 hours as needed for Pain, Mild. Active OTHER THC pain relief salve. Active ALPRAZolam (XANAX) 0.25 mg tabletIndicati ons:Anxiety state TAKE 1 TABLET BY MOUTH EVERY 6 TO 8 HOURS NEEDED 90 Tablet 08/06/19 25 Active ALPRAZolam (XANAX) 0.25 mg tabletIndicati ons:Anxiety state TAKE 1 TABLET BY MOUTH EVERY 6 TO 8 HOURS NEEDED 90 Tablet 06/21/19 25 025 Discontin ued(Reord er) Active Problems Problem Noted Date Diagnosed Date Low back pain 08/09/2024 Heart failure with reduced ejection fraction History of lung cancer 08/09/2024 Anxiety 08/09/2024 Atrial flutter 08/09/2024 Non-small cell cancer of left lung 03/27/2020 Erythrocytosis 11/15/2019 Encounter for screening for lung cancer 11/15/19 20 Elevated SGOT (AST) 11/15/2019 Resolved Problems Problem Noted Date Diagnosed Date Resolved Date Paroxysmal atrial fibrillati on with rapid ventricular response 08/09/2024 08/09/2024 Encounters Date Type Department Care Team Description 08/09/2024 11:07 AM CDT - 08/10/2024 4:42 PM CDT Hospital Encounter [facility] Unit [address] [place] [address] Amanuel Loredo MD Habtu, Danni Yemane, DO Gravely, Sean Eric, DO Paroxysmal atrial fibrillation with rapid ventricular response ([facility]/HCC) Discharge Disposition: Home or Self Care 08/09/2024 10:59 AM CDT Anesthesia Event [facility] Interventional Radiology S [facility] [address] [place] [address] Kae Gomez MD 08/09/2024 9:38 AM CDT - 08/09/2024 10:55 AM CDT Hospital Encounter [facility] [address] [place] [id number] Malik Lewis MD 5, [facility], [facility] Ir Sandy, Karissa Ramirez, FRANKY-C Kae Gomez MD Compression fracture of T9 vertebra with routine healing, subsequent encounter Discharge Disposition: Home or Self Care 08/09/2024 Travel 08/07/2024 External Device Data STL ABSTRACTION Provider, Abstract 08/06/2024 External Device Data [facility] ABSTRACTION Provider, Abstract 08/05/2024 Refill [facility] - [address] [place] [address] Malik Lewis MD Anxiety state 07/26/2024 Orders Only [facility] - [address] [place] [address] Malik Lewis MD 07/04/2024 2:00 PM CDT Office Visit [facility] - [address] [place] [address] Malik Lewis MD Compression fracture of T9 vertebra with routine healing, subsequent encounter (Primary Dx) 07/04/2024 Refill [facility] - [address] [place] [address] Malik Lewis MD Non-small cell cancer of left lung (CMS/HCC) 07/03/2024 Orders Only [facility] - [address] [place] [address] Malik Lewis MD Compression fracture of T10 vertebra, initial encounter (CMS/HCC) (Primary Dx) 07/02/2024 External Device Data STL ABSTRACTION Provider, Abstract 07/02/2024 Orders Only [facility] - [address] [place] [phone] Malik Lewis MD 06/20/2024 Orders Only [facility] - [address] [place] [phone] Malik Lewis MD 06/20/2024 Refill [facility] - [address] Malik Lewis MD Anxiety state; Non-small cell cancer of left lung (CMS/HCC) 05/27/2024 Orders Only [facility] - [address] Malik Lewis MD 05/21/2024 External Device Data STL ABSTRACTION Provider, Abstract 05/16/2024 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 Office Visit [facility] - [address] [place] [phone] Malik Lewis MD Non-small cell cancer of left lung (CMS/HCC) (Primary Dx) from Last 3 Months Family History Medical History Relation Name Comments Cancer Father Heart Disease Father Cancer Mother Heart Disease Mother Relation Name Status Comments Brother Alive Father Mother Sister Alive Social History Tobacco Use Types Packs/Day Years Used Date Smoking Tobacco: Some Days Cigarettes 1 40.9 Started: 10/02/2023 Smokeless Tobacco: Never Tobacco Cessation:Ready to Q uit: Not Asked; Counseling Given: Not Answered Alcohol Use Standard Drinks/Week Comments Not Currently 0 (1 standard drink = 0.6 oz pur e alcohol) Feeling Safe Answer Date Recorded Are you in a relationship wi th someone who hurts you emotionally and/or physically? No 08/09/2024 Food Insecurity Answer Date Recorded Patient needs follow up regardin 08/10/2024 Transportation Needs Answer Date Record ed Patient needs follow up regardin 08/10/2024 Utility Needs Answer Date Recorded Patient needs follow up regardin 08/10/2024 Comments No Sex and Gender Information Value Date Recorded Sex Assigned at Not on file Legal Sex Female 11:18 AM CDT Gender Identity Not on file Sexual Orientation Not on file Last Filed Vital Signs Vital Sign Reading Time Taken Comments Blood Pressure 133/81 08/10/2024 12:28 PM CDT Pulse 76 08/10/2024 8:31 AM CDT Temperature 37.1 C (98.7 F) 08/10/2024 12:28 PM CDT Respiratory Rate 20 08/10/2024 12:28 PM CDT Oxygen Saturation 95% 08/10/2024 12:28 PM CDT Inhaled Oxygen Concentration - - Weight 66.7 kg (147 lb) 08/09/2024 9:55 AM CDT Height 172.7 cm (5' 8) 01/10/2022 10:33 AM CDT Body Mass Index 22.35 01/10/2022 10:33 AM CDT Plan of Treatment Health Maintenance Due Date Last Done Comments DTAP/TDAP/TD VACCINES (1 - Tdap) 1973 PNEUMOCOCCAL VACCINE 50+ YEARS (1 of 2 - PCV) 12/23/18 74 Traditional Medicare ([facility]) Annual Wellness Visit 12/23 BREAST CANCER SCREENING [...] Procedure Name Priority Date/Time Associated Diagnosis Comments ECHO COMPLETE Pending Discharge 08/10/2024 8:33 AM CDT CBC WITHOUT DIFFERENTIAL Routine 08/10/2024 2:11 AM CDT MAGNESIUM LEVEL Routine 08/10/2024 2:11 AM CDT BASIC METABOLIC PANEL Routine 08/10/2024 2:11 AM CDT LIPID PANEL Routine 08/10/2024 2:11 AM CDT EKG 12-LEAD Stat 08/09/2024 12:54 PM CDT XR CHEST PA OR AP 1 VW Stat 08/09/2024 12:48 PM CDT EXTRA TUBE (URINE CONTAINER) Stat 08/09/2024 12:42 PM CDT EKG 12-LEAD Stat 08/09/2024 12:19 PM CDT CRITICAL CARE Routine 08/09/2024 11:24 AM CDT EKG 12-LEAD Stat 08/09/2024 11:01 AM CDT TSH Routine 08/09/2024 10:07 AM CDT HEMOGLOBIN A1C Stat 08/09/2024 10:07 AM CDT MAGNESIUM LEVEL Stat 08/09/2024 10:07 AM CDT BASIC METABOLIC PANEL Stat 08/09/2024 10:07 AM CDT CBC WITH DIFFERENTIAL Stat 08/09/2024 10:07 AM CDT MRI THORACIC W WO CONTRAST Routine 07/25/2024 8:40 AM CDT CBC MIXED CELL DIFFERENTIAL Routine 07/02/2024 3:44 PM CDT COMPREHENSIVE METABOLIC PANEL Routine 07/02/2024 7:59 AM CDT CREATININE Routine 06/20/2024 3:[address] CHEST W CONTRAST Routine 06/20/2024 1 0:42 AM CDT from Last 3 Months Results * ECHO COMPLETE - CONTRAST AND STRAIN IF INDICATED (08/10/2024 8:33 AM CDT) EJECTION FRACTION 52 INTERFACE SYSTEM 08/10/2024 6:58 AM CDT Narrative INTERFACE SYSTEM - 08/10/2024 10:48 AM CDT [address] [place] [address] [email or web address] Transthoracic Echocardiogram Patient: Yessenia Clement Study ID: ECHO COMPLETE - Gender: F : 1955 Age: 68 Race: ROBERT Height 172.7cm Study Date: 08/10/2024 Weight: 66.7kg Access. #: [id number] BP: *Referring Physician:* Manuel Bryan *Ordering Physician:* Manuel Bryan gear keeper: Nurse: Indications: Atrial fibrillation/flutter. STUDY CONCLUSIONS: SUMMARY: - Left ventricle: The cavity size was normal. Wall thickness was normal. Global systolic function is normal. For Epic reporting: the left ventricular ejection fraction is 52% . Diastolic function assessment consistent with abnormal left ventricular relaxation (grade 1 diastolic dysfunction). - Ventricular septum: Paradoxical septal motion. - Mitral valve: Mild regurgitation. - Left atrium: The atrium is normal in size. - Right ventricle: The cavity size is normal. Systolic function is normal. - Tricuspid valve: Trivial regurgitation. - Pulmonary arteries: The peak systolic pressure is 29mm Hg. Cardiac Anatomy: LEFT VENTRICLE: The cavity size was normal. Wall thickness was normal. Global systolic function is normal. For Epic reporting: the left ventricular ejection fraction is 52% . Global longitudinal strain was -15.6% (GLS is abnormal if greater than -16, i.e. -15). Diastolic function assessment consistent with abnormal left ventricular relaxation (grade 1 diastolic dysfunction). AORTIC VALVE: Structurally normal valve. Trileaflet. No significant regurgitation. The mean systolic gradient is 8mm Hg. The peak systolic gradient is 14mm Hg. The LVOT to aortic valve VTI ratio is 0.82. The valve area is 2.6cm^2. The ratio of LVOT to aortic valve peak velocity is 0.81. AORTA: Aortic root: The root is normal-sized. MITRAL VALVE: Mild regurgitation. The mean diastolic gradient is 2mm Hg. The peak diastolic gradient is 6mm Hg. LEFT ATRIUM: The atrium is normal in size. RIGHT VENTRICLE: The cavity size is normal. Systolic function is normal. VENTRICULAR SEPTUM: Paradoxical septal motion. PULMONIC VALVE: Structurally normal valve. No significant regurgitation. TRICUSPID VALVE: Trivial regurgitation. RIGHT ATRIUM: The atrium was normal in size. SYSTEMIC VEINS: Inferior vena cava: The IVC is normal-sized. PERICARDIUM: There is no pericardial effusion. Measurements Left ventricle Value Ref GLS, 2D -15.6 % --------- IVS, ED, LAX (N) 0.9 cm 0.6 - 0.9 NANY, LAX (L) 3.5 cm 3.8 - 5.2 NANY/bsa, LAX (L) 2.0 cm/m^2 2.3 - 3.1 NANY, LAX chord (N) 4.8 cm 3.8 - 5.2 ESD, LAX chord (N) 3.5 cm 2.2 - 3.5 NANY/bsa, LAX chord (N) 2.7 cm/m^2 2.3 - 3.1 ESD/bsa, LAX chord (N) 2.0 cm/m^2 1.3 - 2.1 FS, LAX chord (N) 27 % 27 - 45 IVS, ED (N) 0.9 cm 0.6 - 0.9 PW, ED (N) 0.8 cm 0.6 - 0.9 EDV, 2-p (H) 150 ml 46 - 106 ESV, 2-p (H) 52 ml 14 - 42 SV, 2-p 98 ml --------- SV/bsa, 2-p 54.7 ml/m^2 --------- E', lat ashwin, TDI (L) 9.3 cm/sec >=10.0 E/e', lat aswhin, TDI (N) 9 <=13 E', med ashwin, TDI (L) 6.2 cm/sec >=7.0 E/e', med ashwin, TDI 14 --------- E', avg, TDI 7.7 cm/sec --------- E/e', avg, TDI (N) 11 <=14 LVOT Value Ref Diam, S 2.0 cm --------- Area 3.1 cm^2 --------- Peak omari, S 1.54 m/sec --------- VTI, S 30.1 cm --------- Peak grad, S 9 mm Hg --------- Right ventricle Value Ref NANY minor ax, A4C base (H) 4.3 cm 2.5 - 4.1 NANY minor ax, A4C mid (N) 3.2 cm 1.9 - 3.5 NANY major ax, A4C (H) 9.0 cm 5.9 - 8.3 TAPSE, MM (N) 2.5 cm >=1.7 Pressure, S 33 mm Hg --------- S' lateral (N) 13.7 cm/sec >=9.5 Left atrium Value Ref AP dim, ES (N) 2.9 cm 2.7 - 3.8 AP dim index, ES (N) 1.6 cm/m^2 1.5 - 2.3 SI dim, A4C 6.1 cm --------- Area ES, A4C (N) 19 cm^2 <=20 Area/bsa ES, A4C 10.56 cm^2/m^2 --------- SI dim, A2C 5.7 cm --------- SI dim, shorter 5.7 cm --------- Vol, ES, 1-p A2C (N) 51 ml 22 - 52 Vol/bsa, ES, 1-p A2C (N) 29 ml/m^2 13 - 40 Vol, ES, 2-p 51 ml --------- Vol/bsa, ES, 2-p (N) 29 ml/m^2 16 - 34 LA/Ao root ratio 0.97 --------- Right atrium Value Ref SI dim, ES, A4C (N) 5.0 cm 3.4 - 5.3 SI dim/bsa, ES, A4C (N) 2.8 cm/m^2 1.9 - 3.1 Area, ES, A4C (N) 15 cm^2 10 - 18 Vol, ES, 1-p A4C 35 ml --------- Vol/bsa, ES, 1-p A4C (N) 20 ml/m^2 9 - 33 Aortic valve Value Ref Peak v, S 1.9 m/sec --------- Mean v, S 1.27 m/sec --------- VTI, S 36.5 cm --------- Mean grad, S 8 mm Hg --------- Peak grad, S 14 mm Hg --------- LVOT/AV, VTI ratio 0.82 --------- JABIER, VTI 2.6 cm^2 --------- JABIER/bsa, VTI 1.45 cm^2/m^2 --------- LVOT/AV, Vpeak ratio 0.81 --------- JABIER, Vmax 2.6 cm^2 --------- JABIER/bsa, Vmax 1.43 cm^2/m^2 --------- Mitral valve Value Ref Mean v, D 0.73 m/sec --------- Peak E 0.86 m/sec --------- Peak A 1.11 m/sec --------- Decel time 185 ms --------- Mean grad, D 2 mm Hg --------- Peak grad, D 6 mm Hg --------- Peak E/A ratio 0.8 --------- A-VTI 27.6 cm --------- Pulmonic valve Value Ref Peak v, S 1.04 m/sec --------- Peak grad, S 4 mm Hg --------- Tricuspid valve Value Ref TR peak v (N) 2.4 m/sec <=2.8 Peak RV-RA grad, S 23 mm Hg --------- Aortic root Value Ref Root diam, 3.0 cm --------- Ascending aorta Value Ref AAo AP diam, S 3.3 cm --------- AAo AP diam/bsa, S 1.8 cm/m^2 --------- Pulmonary artery Value Ref Pressure, S 29 mm Hg --------- Systemic veins Value Ref Estimated RA pressure 10 mm Hg --------- Legend: (L) and (H) rony values outside specified reference range. (N) gutierrez values inside specified reference range. Procedure data: Procedure information: A transthoracic echocardiogram was performed. Scanning was performed from the parasternal, apical, and subcostal acoustic windows. Transthoracic echocardiogram. Complete 2D, complete spectral Doppler, and color Doppler. Birthdate: Patient birthdate: 1955. Age: Patient is 68year(s) old. Sex: gender: female. Height: 172.7cm. 68in. Weight: 66.7kg. 147lb. Body mass index: 22.4kg/m^2. Body surface area: 1.79m^2. Study date: Study date: 08/10/2024. Study time: 06:58 AM. Prepared and Electronically Authenticated Khloe Wilkes Bruce [id number] Procedure Note Eder Wilkes MD - 08/10/2024 [place] [address] [email or web address] Transthoracic Echocardiogram Patient: Yessenia Clement Study ID: ECHO COMPLETE - Gender: F : 1955 Age: 68 Race: CAU Height 172.7cm Study Date: 08/10/2024 Weight: 66.7kg Access. #: [id number] BP: *Referring Physician:* Manuel Bryan *Ordering Physician:* Manuel Bryan gear keeper: Nurse: Indications: Atrial fibrillation/flutter. STUDY CONCLUSIONS: SUMMARY: - Left ventricle: The cavity size was normal. Wall thickness was normal. Global systolic function is normal. For Epic reporting: the leftventricular ejection fraction is 52% . Diastolic function assessment consistentwith abnormal left ventricular relaxation (grade 1 diastolic dysfunction). - Ventricular septum: Paradoxical septal motion. - Mitral valve: Mild regurgitation. - Left atrium: The atrium is normal in size. - Right ventricle: The cavity size is normal. Systolic function isnormal. - Tricuspid valve: Trivial regurgitation. - Pulmonary arteries: The peak systolic pressure is 29mm Hg. Cardiac Anatomy: LEFT VENTRICLE: The cavity size was normal. Wall thickness was normal.Global systolic function is normal. For Epic reporting: the left ventricularejection fraction is 52% . Global longitudinal strain was -15.6% (GLS is abnormalif greater than -16, i.e. -15). Diastolic function assessment consistentwith abnormal left ventricular relaxation (grade 1 diastolic dysfunction). AORTIC VALVE: Structurally normal valve. Trileaflet. No significant regurgitation. The mean systolic gradient is 8mm Hg. The peak systolic gradient is 14mm Hg. The LVOT to aortic valve VTI ratio is 0.82. Thevalve area is 2.6cm^2. The ratio of LVOT to aortic valve peak velocity is0.81. AORTA: Aortic root: The root is normal-sized. MITRAL VALVE: Mild regurgitation. The mean diastolic gradient is 2mm Hg.The peak diastolic gradient is 6mm Hg. LEFT ATRIUM: The atrium is normal in size. RIGHT VENTRICLE: The cavity size is normal. Systolic function isnormal. VENTRICULAR SEPTUM: Paradoxical septal motion. PULMONIC VALVE: Structurally normal valve. No significantregurgitation. TRICUSPID VALVE: Trivial regurgitation. RIGHT ATRIUM: The atrium was normal in size. SYSTEMIC VEINS: Inferior vena cava: The IVC is normal-sized. PERICARDIUM: There is no pericardial effusion. Measurements Left ventricle Value Ref GLS, 2D -15.6 % --------- IVS, ED, LAX (N) 0.9 cm 0.6 - 0.9 NANY, LAX (L) 3.5 cm 3.8 - 5.2 NANY/bsa, LAX (L) 2.0 cm/m^2 2.3 - 3.1 NANY, LAX chord (N) 4.8 cm 3.8 - 5.2 ESD, LAX chord (N) 3.5 cm 2.2 - 3.5 NANY/bsa, LAX chord (N) 2.7 cm/m^2 2.3 - 3.1 ESD/bsa, LAX chord (N) 2.0 cm/m^2 1.3 - 2.1 FS, LAX chord (N) 27 % 27 - 45 IVS, ED (N) 0.9 cm 0.6 - 0.9 PW, ED (N) 0.8 cm 0.6 - 0.9 EDV, 2-p (H) 150 ml 46 - 106 ESV, 2-p (H) 52 ml 14 - 42 SV, 2-p 98 ml --------- SV/bsa, 2-p 54.7 ml/m^2 --------- E', lat ashwin, TDI (L) 9.3 cm/sec >=10.0 E/e', lat ashwin, TDI (N) 9 <=13 E', med ashwin, TDI (L) 6.2 cm/sec >=7.0 E/e', med ashwin, TDI 14 --------- E', avg, TDI 7.7 cm/sec --------- E/e', avg, TDI (N) 11 <=14 LVOT Value Ref Diam, S 2.0 cm --------- Area 3.1 cm^2 --------- Peak omari, S 1.54 m/sec --------- VTI, S 30.1 cm --------- Peak grad, S 9 mm Hg --------- Right ventricle Value Ref NANY minor ax, A4C base (H) 4.3 cm 2.5 - 4.1 NANY minor ax, A4C mid (N) 3.2 cm 1.9 - 3.5 NANY major ax, A4C (H) 9.0 cm 5.9 - 8.3 TAPSE, MM (N) 2.5 cm >=1.7 Pressure, S 33 mm Hg --------- S' lateral (N) 13.7 cm/sec >=9.5 Left atrium Value Ref AP dim, ES (N) 2.9 cm 2.7 - 3.8 AP dim index, ES (N) 1.6 cm/m^2 1.5 - 2.3 SI dim, A4C 6.1 cm --------- Area ES, A4C (N) 19 cm^2 <=20 Area/bsa ES, A4C 10.56 cm^2/m^2 --------- SI dim, A2C 5.7 cm --------- SI dim, shorter 5.7 cm --------- Vol, ES, 1-p A2C (N) 51 ml 22 - 52 Vol/bsa, ES, 1-p A2C (N) 29 ml/m^2 13 - 40 Vol, ES, 2-p 51 ml --------- Vol/bsa, ES, 2-p (N) 29 ml/m^2 16 - 34 LA/Ao root ratio 0.97 --------- Right atrium Value Ref SI dim, ES, A4C (N) 5.0 cm 3.4 - 5.3 SI dim/bsa, ES, A4C (N) 2.8 cm/m^2 1.9 - 3.1 Area, ES, A4C (N) 15 cm^2 10 - 18 Vol, ES, 1-p A4C 35 ml --------- Vol/bsa, ES, 1-p A4C (N) 20 ml/m^2 9 - 33 Aortic valve Value Ref Peak v, S 1.9 m/sec --------- Mean v, S 1.27 m/sec --------- VTI, S 36.5 cm --------- Mean grad, S 8 mm Hg --------- Peak grad, S 14 mm Hg --------- LVOT/AV, VTI ratio 0.82 --------- JABIER, VTI 2.6 cm^2 --------- JABIER/bsa, VTI 1.45 cm^2/m^2 --------- LVOT/AV, Vpeak ratio 0.81 --------- JABIER, Vmax 2.6 cm^2 --------- JABIER/bsa, Vmax 1.43 cm^2/m^2 --------- Mitral valve Value Ref Mean v, D 0.73 m/sec --------- Peak E 0.86 m/sec --------- Peak A 1.11 m/sec --------- Decel time 185 ms --------- Mean grad, D 2 mm Hg --------- Peak grad, D 6 mm Hg --------- Peak E/A ratio 0.8 --------- A-VTI 27.6 cm --------- Pulmonic valve Value Ref Peak v, S 1.04 m/sec --------- Peak grad, S 4 mm Hg --------- Tricuspid valve Value Ref TR peak v (N) 2.4 m/sec <=2.8 Peak RV-RA grad, S 23 mm Hg --------- Aortic root Value Ref Root diam, 3.0 cm --------- Ascending aorta Value Ref AAo AP diam, S 3.3 cm --------- AAo AP diam/bsa, S 1.8 cm/m^2 --------- Pulmonary artery Value Ref Pressure, S 29 mm Hg --------- Systemic veins Value Ref Estimated RA pressure 10 mm Hg --------- Legend: (L) and (H) rony values outside specified reference range. (N) gutierrez values inside specified reference range. Procedure data: Procedure information: A transthoracic echocardiogram was performed.Scanning was performed from the parasternal, apical, and subcostal acousticwindows. Transthoracic echocardiogram. Complete 2D, complete spectralDoppler, and color Doppler. Birthdate: Patient birthdate: 1955. Age:Patient is 68year(s) old. Sex: gender: female. Height: 172.7cm. 68in. Weight: 66.7kg. 147lb. Body mass index: 22.4kg/m^2. Body surfacearea: 1.79m^2. Study date: Study date: 08/10/2024. Study time: 06:58 AM. Prepared and Electronically Authenticated Khloe Wilkes Bruce [id number] us Manuelbillie Bryan MD ORDERABLES Tawny durham Result INTERFACE SYSTEM Refer to clinic/hospital department * (ABNORMAL) CBC WITHOUT DIFFERENTIAL (08/10/2024 2:11 AM CDT) WBC 5.5 4.0 - 9.8 K/uL 08/10/2024 2:55 AM CDT [facility] RBC 3.99 3.90 - 4.90 M/uL 08/10/2024 2:55 AM CDT [facility] HEMOGLOBIN 14.1 11.8 - 14.8 g/dL 08/10/2024 2:55 AM CDT [facility] HEMATOCRIT 44.4(H) 35.5 - 44.0 % 08/10/2024 2:55 AM CDT [facility] MCV 111.3(H) 82.0 - 99.0 fL 08/10/2024 2:55 AM CDT [facility] MCH 35.3(H) 27.2 - 32.6 pg 08/10/2024 2:55 AM CDT [facility] MCHC 31.8 31.5 - 35.5 g/dL 08/10/2024 2:55 AM CDT [facility] PLATELETS 210 140 - 350 K/uL 08/10/2024 2:55 AM CDT [facility] MPV 9.4 9.3 - 12.4 fL 08/10/2024 2:55 AM CDT [facility] [facility] RDW 13.8 11.5 - 14.5 % 08/10/2024 2:55 AM CDT [facility] RDW-STDEV 57.5(H) 37.1 - 48.7 fL 08/10/2024 2:55 AM CDT [facility] Blood Venipuncture / Unknown 08/10/2024 2:11 AM CDT 08/10/2024 2:32 AM CDT us Manuel Bryan MD HEMATOLOGY ORDERABLE S Final Result [facility] [id number] [address] [place] [address] * MAGNESIUM LEVEL (08/10/2024 2:11 AM CDT) Only the most recent of2 resultswithin the time period is included. MAGNESIUM 1.8 1.6 - 2.4 mg/dL 08/10/2024 3:28 AM CDT [facility] [employer] [facility] Blood Venipuncture / Unknown 08/10/2024 2:11 AM CDT 08/10/2024 2:31 AM CDT Manuel Bryan MD CHEMISTRY ORDERABLES Final Result Performing Organization Address City/State/[facility] Co de Phone Number [facility] [employer] [facility] [id number] [address] [place] [address] * (ABNORMAL) LIPID PANEL (08/10/2024 2:11 AM CDT) CHOLESTEROL 167 <200 mg/dL 08/10/2024 3:28 AM CDT [facility] [employer] [facility] TRIGLYCERIDE 78 <150 mg/dL 08/10/2024 3:28 AM CDT [facility] [employer] [facility] HDL 43 40 - 59 mg/dL 08/10/2024 3:28 AM CDT [facility] [employer] [facility] LDL CALCULATED 108(H) <100 mg/dL 08/10/2024 3:28 AM CDT [facility] [employer] [facility] NON-HDL CHOLESTEROL 124 <130 mg/dL 08/10/2024 3:28 AM CDT [facility] [employer] [facility] Blood Venipuncture / Unknown 08/10/2024 2:11 AM CDT 08/10/2024 2:31 AM CDT Narrative [facility] - 08/10/2024 3:28 AM CDT TOTAL CHOLESTEROL mg/dL Desirable <200 Borderline high 200-239 High >=240 TRIGLYCERIDES mg/dL Normal <150 Borderline high 150-199 High 200-499 Very high >=500 HDL CHOLESTEROL mg/dL Low <40 Normal 40-59 Desirable >=60 NON HDL CHOLESTEROL mg/dL Optimal <130 Near Optimal 130-159 Borderline High 160-189 Very High >=190 CALCULATED LDL mg/dL LDL <70, OPTIMAL if have Atherosclerotic cardiovascular disease (ASCVD) or intermediate or higher (>7.5%) 10 year risk of ASCVD including most adults with diabetes. LDL <100, Optimal in adult patients with low (<7.5%) 10 year ASCVD risk LDL 100-160, Suboptimal LDL >160, High LDL >190, Very high LDL calculated using the Friedewald equation. ATPIII Guidelines Reference Ranges for Lipid Panels (NCEP/AMA) . Manuel Bryan MD CHEMISTRY ORDERABLES Final Result [facility]# [id number] 5 [facility] [address] * BASIC METABOLIC PANEL (08/10/2024 2:11 AM CDT) Only the most recent of2 resultswithin the time period is included. SODIUM 136 136 - 145 mmol/L 08/10/2024 3:28 AM T [facility] - . [place] POTASSIUM 4.7 3.5 - 5.0 mmol/L 08/10/2024 3:28 AM T [facility] - . [facility] CHLORIDE 100 98 - 107 mmol/L 08/10/2024 3:28 AM CDT [facility] - [facility] CO2 28 22 - 29 mmol/L 08/10/2024 3:28 AM CDT [facility] - . [place] CALCIUM 9.2 8.6 - 10.2 mg/dL 08/10/2024 3:28 AM CDT [facility] - [facility] BUN 13 8 - 23 mg/dL 08/10/2024 3:28 AM T [facility] - . [place] CREATININE 0.75 0.51 - 0.95 mg/dL 08/10/2024 3:28 AM CDT [facility] - . [place] GLUCOSE 76 74 - 99 mg/dL 08/10/2024 3:28 AM CDT [facility] GFR >60 >=60 mL/min/1.7 3 sq meter 08/10/2024 3:28 AM CDT [facility] Comment:eGFR calculated with 2020 CKD-EPI equation. Vegetarian diet, extremely high or low muscle mass, and may affect results. Cystatin C with Glomerular Filtration Rate is a suitable alternative for these patients. ANION GAP 8 8 - 16 mmol/L 08/10/2024 3:28 AM CDT [facility] Blood Venipuncture / Unknown 08/10/2024 2:11 AM CDT 08/10/2024 2:31 AM CDT us Manuel Bryan MD CHEMISTRY ORDERABLES Final Result [facility] CLIA# [id number] [address] [place] [address] * EKG 12-LEAD (08/09/2024 12:54 PM CDT) Only the most recent of3 resultswithin the time period is included. 08/09/2024 12:5 4 PM CDT Narrative INTERFACE SYSTEM - 08/09/2024 5:03 PM CDT [facility] [address] [place] [address] Test Date: 2024-08-09 Pat Name: YESSENIA CLEMENT Department: 40 Room: 3080 Gender: F Low Voltage Electrician: [email or web address] : 1955 Requested By: AMANUEL Jolley Order Number: [id number] Reading MD: Ian Cottrell Measurements Intervals [place] Rate: 75 P: 61 DC: 175 QRS: -64 QRSD: 114 T: 87 QT: 407 QTc: 455 Interpretive Statements Sinus rhythm Left anterior fascicular block Anterior infarct, old Electronically Signed On 08-09-2024 17:03:44 CDT by Ian Cottrell Procedure Note Ian Cottrell MD - 08/09/2024 [facility] [address] , [place] [address] Test Date: 2024-08-09 Pat Name: YESSENIA CLEMENT Department: 40 Room: 3080 Gender: F Low Voltage Electrician: [email or web address] : 1955 Requested By: AMANUEL Jolley Order Number: [id number] Reading MD: Ian Cottrell Measurements Intervals [place] Rate: 75 P: 61 DC: 175 QRS: -64 QRSD: 114 T: 87 QT: 407 QTc: 455 Interpretive Statements Sinus rhythm Left anterior fascicular block Anterior infarct, old Electronically Signed On 08-09-2024 17:03:44 CDT by Ian Cottrell us Amanuel Loredo MD ECG ORDERABLES Final Result INTERFACE SYSTEM Refer to clinic/hospital department * XR CHEST PA OR AP 1 VW (08/09/2024 12:48 PM CDT) Anatomical Region Laterality Modality Chest Computed Radiogr aphy 08/09/2024 12:4 8 PM CDT Impressions 08/09/2024 12:58 PM CDT IMPRESSION: Interstitial and nodular opacities seen at the right lung base. Prior CT chest demonstrated subcentimeter right lower lobe nodules and scarring/atelectasis. Findings could represent worsening of these findings. A 4.7 cm left midlung masslike opacity corresponds with the masslike opacity along the fissure seen on prior CTs. Consider follow-up with CT chest as indicated. DICTATION LOCATION: Location 4 Narrative 08/09/2024 12:58 PM CDT AP VIEW OF THE CHEST DATE: 08/09/2024 12:48 PM HISTORY: Palpitations COMPARISON: Outside facility CT chest 06/20/2024 and 09/25/2023 FINDINGS: The right Port-A-Cath terminates in SVC. There are mild interstitial and somewhat nodular opacities at the right lung base. There is a masslike opacity in the left midlung measuring up to 4.7 cm. No pleural effusion or pneumothorax is identified. The cardiomediastinal silhouette is within normal limits. Procedure Note Maegan Ovalle MD - 08/09/2024 AP VIEW OF THE CHEST DATE: 08/09/2024 12:48 PM HISTORY: Palpitations COMPARISON: Outside facility CT chest 06/20/2024 and 09/25/2023 FINDINGS: The right Port-A-Cath terminates in SVC. There are mild interstitial and somewhat nodular opacities at the right lung base. There is a masslike opacity in the left midlung measuring up to 4.7 cm. No pleural effusion or pneumothorax is identified. The cardiomediastinal silhouette is within normal limits. IMPRESSION: Interstitial and nodular opacities seen at the right lung base. Prior CT chest demonstrated subcentimeter right lower lobe nodules and scarring/atelectasis. Findings could represent worsening of these findings. A 4.7 cm left midlung masslike opacity corresponds with the masslike opacity along the fissure seen on prior CTs. Consider follow-up with CT chest as indicated. DICTATION LOCATION: Location 4 us Amanuel Loredo MD DIAGNOSTIC IMAGING ORDERABLE S Final Result * EXTRA TUBE (URINE CONTAINER) (08/09/2024 12:42 PM CDT) Urine URINE SPECIMEN OBTAINED BY CLEAN CATCH PROCEDURE / Unknown Collection / Unknown 08/09/2024 12:42 PM CDT 08/09/2024 12:42 PM CDT us Protocol [facility] MD URINE ORDERABLES Fin al Result Performing Organization Address [facility]/State/[facility] Co de Phone Number [facility]# [id number] [address] [facility] [place] [address] * Critical Care (08/09/2024 11:24 AM CDT) Narrative Amanuel Loredo MD - 08/09/2024 11:24 AM CDT Amanuel Loredo MD 08/10/2024 11:22 PM Critical Care Performed by: Amanuel Loredo MD Authorized by: Amanuel Loredo MD Critical care provider statement: Critical care time (minutes): 35 Critical care time was exclusive of: Separately billable procedures and treating other patients Critical care was necessary to treat or prevent imminent or life-threatening deterioration of the following conditions: Cardiac failure Critical care was time spent personally by me on the following activities: Development of treatment plan with patient or surrogate, discussions with consultants, evaluation of patient's response to treatment, examination of patient, ordering and performing treatments and interventions, ordering and review of laboratory studies, ordering and review of radiographic studies, pulse oximetry, re-evaluation of patient's condition, review of old charts and obtaining history from patient or surrogate I assumed direction of critical care for this patient from another provider in my specialty: no Care discussed with: admitting provider us Amanuel Loredo MD PROCEDURE/MINOR SURGICAL ORD ERABLES Final Result * (ABNORMAL) CBC WITH DIFFERENTIAL (08/09/2024 10:07 AM CDT) [facility] WBC 5.5 4.0 - 9.8 K/uL 08/09/2024 10:35 AM CDT [facility] - [facility] RBC 4.55 3.90 - 4.90 M/uL 08/09/2024 10:35 AM CDT [facility] - [facility] HEMOGLOBIN 16.0(H) 11.8 - 14.8 g/dL 08/09/2024 10:35 AM CDT [facility] - [facility] HEMATOCRIT 50.2(H) 35.5 - 44.0 % 08/09/2024 10:35 AM CDT [facility] - [facility] MCV 110.3(H) 82.0 - 99.0 fL 08/09/2024 10:35 AM CDT [facility] - [facility] MCH 35.2(H) 27.2 - 32.6 pg 08/09/2024 10:35 AM CDT [facility] - [facility] MCHC 31.9 31.5 - 35.5 g/dL 08/09/2024 10:35 AM CDT [facility] RDW 13.9 11.5 - 14.5 % 08/09/2024 10:35 AM CDT [facility] - [facility] RDW-STDEV 57.7(H) 37.1 - 48.7 fL 08/09/2024 10:35 AM CDT [facility] PLATELETS 232 140 - 350 K/uL 08/09/2024 10:35 AM CDT [facility] MPV 9.7 9.3 - 12.4 fL 08/09/2024 10:35 AM CDT [facility] - . [facility] NEUTROPHILS 71 % 08/09/2024 10:35 AM CDT [facility] - . [facility] LYMPHOCYTES 21 % 08/09/2024 10:35 AM CDT [facility] - . [place] MONOCYTES 8 % 08/09/2024 10:35 AM CDT [facility] - . [place] EOSINOPHILS 0 % 08/09/2024 10:35 AM CDT [facility] - . [place] BASOPHILS 0 % 08/09/2024 10:35 AM CDT [facility] - [facility] IMMATURE GRANULOCYTES 0 % 08/09/2024 10:35 AM CDT [facility] [facility] - . [facility] NEUTROPHIL ABSOLUTE 3.88 1.90 - 7.00 K/uL 08/09/2024 10:35 AM CDT [facility] - . [facility] LYMPHOCYTE ABSOLUTE 1.16 0.70 - 4.50 K/uL 08/09/2024 10:35 AM CDT [facility] - . [facility] MONOCYTE ABSOLUTE 0.41 0.10 - 1.30 K/uL 08/09/2024 10:35 AM CDT [facility] - . [place] EOSINOPHIL ABSOLUTE 0.01 0.00 - 0.70 K/uL 08/09/2024 10:35 AM CDT [facility] - . [place] BASOPHILS ABSOLUTE 0.01 0.00 - 0.20 K/uL 08/09/2024 10:35 AM T [facility] - . [facility] IMMATURE GRANULOCYTES ABSOLUTE 0.02 0.00 - 0.03 K/uL 08/09/2024 10:35 AM T [facility] - [facility] Blood Venipuncture / Unknown 08/09/2024 10:07 AM CDT 08/09/2024 10:21 AM CDT us Mejia Davila MD HEMATOLOGY ORDERABLES Final R esult [facility] [employer] [facility] - [facility]# [id number] [address] [place] [address] * TSH (08/09/2024 10:07 AM CDT) Pathologist [facility] TSH 1.24 0.27 - 4.20 uIU/mL 08/09/2024 6:19 PM CDT [facility] Blood Venipuncture / Unknown 08/09/2024 10:07 AM CDT 08/09/2024 10:21 AM CDT Katlin Quesada DO CHEMISTRY ORDERABLES Final Result Performing Organization Address [facility]/ZIP Co de Phone Number [facility]# [id number] [address] [place] [address] * HEMOGLOBIN A1C (08/09/2024 10:07 AM CDT) [facility] HEMOGLOBIN A1C 5.6 <5.7 % 08/09/2024 3:58 PM CDT [facility] EST. AVG GLUCOSE, A1C 114 mg/dL 08/09/2024 3:58 PM CDT [facility] Blood Venipuncture / Unknown 08/09/2024 10:07 AM CDT 08/09/2024 10:21 AM CDT Narrative [facility] - 08/09/2024 3:58 PM CDT HGB A1C INTERPRETATION NORMAL: <5.7% PRE-DIABETES: 5.7 - 6.4% DIABETES: 6.5% OR GREATER Manuel Bryan MD CHEMISTRY ORDERABLES Final Result Performing Organization Address City/[facility]/ZIP Co de Phone Number [facility]# [id number] [address] [place] [address] * MRI THORACIC W WO CONTRAST (07/25/2024 8:40 AM CDT) Anatomical Region Laterality Modality Spine Magnetic Resonan ce us Malik Lewis MD MR ORDERABLES Final Result * CBC MIXED CELL DIFFERENTIAL (07/02/2024 3:44 [...] Malik Lewis MD CT ORDERABLES Final Result from Last 3 Months Insurance MEDICARE PART A AND B PH[employer]ICIANS [facility] [employer] Medicare Part D MEDICARE PART A AND B [employer] [facility] Advance Directives For more information, please contact: [phone] * Full Code (Latest Code Status on File) Date Activated Date Inactivated Comments 08/09/2024 2:42 PM 08/10/2024 6:47 PM
--- OUTSIDE RECORDS SUMMARY | 2024-08-12 14:58 | XMS_ITS | Encounter Summary ---
Author Organization [facility] [employer] Address [address] [place] [address] Care Team Providers Care Photoengraving Photographer Name Role Phone Freddy Gallagher MD Primary Care Provider Reason for Visit * Reason Onset Date Comments Medication Refill 09/05/2022 Encounter Details Date Type Department Care Team (Late st Contact Info) Description 09/05/2022 Telephone [facility] Oncology and Hematology - [place] [address] [facility] [address] [place] [address] Malik Lewis MD [address] [facility] [address] [place] [address] Medication Refill Social History Tobacco [...] on filedocumented in this encounter Care Teams Photoengraving Photographer Relationship Specialty Start Date End Date Freddy Gallagher MD [address] [place] [id number] PCP - General Gastroenterology 09/24/19 05/15/24 documented as of this encounter
--- OUTSIDE RECORDS SUMMARY | 2024-08-12 14:59 | XMS_ITS | Clinical Summary ---
Author Organization [facility] [employer] Address [address] [place] [address] Care Team Providers Care Patient Accounts Specialist Name Role Phone Freddy Gallagher MD Primary Care Provider [phone] Malik Lewis MD Unavailable [phone] Source Comments [facility],non-owned Affiliates and Associated Physician Practices is amultiple site organization consisting of ambulatory clinics and hospital sitesin [place], [place], [place]. This disclosure is being madepursuant to the Care Everywhere program and may not contain all information available regarding this patient. 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 FARE COLLECTOR Oxygen Saturation 96% 11/01/2023 3:03 PM CDT Inhaled Oxygen Concentration - - Weight 63.2 kg (139 lb 6.4 oz) 11/01/2023 3:03 P M CDT Height 172.7 cm (5' 8) 11/01/2023 3:03 PM CDT Body Mass Index 21.2 11/01/2023 3:03 PM CDT Plan of Treatment Upcoming Encounters Date Type Department Care Team (Late st Contact Info) Description 11/07/2024 12:00 PM CDT Office Visit [facility] - [facility] [address] [facility] [place] [address] Crissy Kowalski MD [address] [facility] [address] [place] [phone] Health Maintenance Due Date Last Done Comments [...] last dose Insurance MEDICARE MEDICARE [employer] Member Subscriber Plan / Payer (Ef fective 2019-Present) Name:ClementYessenia Relation to Subscriber:Self Name:Dayana Clementyce Grisel Payer ID:Not on file Group ID:Not on file Type:[employer] Address: [address] [place] [address] Care Teams Patient Accounts Specialist Relationship Specialty Start Date End Date Freddy Gallagher MD [address] [place] [phone] PCP - General 01/28/20 Malik Lewis MD [address] [place] [address] Medical Oncology 01/11/24
--- NOTE | 2024-08-12 15:01 | ECG_ITS ---
Test Date: 2024-08-12 15:09:02 Measurements Intervals [place] Rate: 111 P: 77 VA: 172 QRS: -20 QRSD: 132 T: 68 QT: 347 QTc: 472 Interpretive Statements SINUS TACHYCARDIA POSSIBLE LEFT ATRIAL ENLARGEMENT [-0.1mV P WAVE IN V1/V2] LEFT BUNDLE BRANCH BLOCK Compared to ECG 10/17/2023 09:31:33 NO SIGNIFICANT CHANGES Electronically Signed On 08-12-2024 20:34:19 CDT by Franco Perdomo M.D.
[2024-08-12 15:31] LABS: Hematocrit 44.8 % (37.0-47.0); Hemoglobin 14.2 g/dL (12.0-15.0); Mean Corpuscular HGB Conc 31.7 g/dl (32-36); Mean Corpuscular Hemoglobin 34.9 pg (26-34); Mean Corpuscular Volume 110.1 fl (80-100); Platelet Count Result 168 k/mm3 (150-375); Red Blood Count 4.07 M/mm3 (4.2-5.4); Red Cell Distribution Width 13.6 % (11.5-14.5); White Blood Count 6.3 K/mm3 (4.5-10.0)
[2024-08-12 15:40] LABS: Alanine Aminotransferase 20 U/L (6-35); Albumin Level 3.4 g/dL (3.5-5.1); Alkaline Phosphatase 92 U/L (38-126); Anion Gap 8 mmol/L (4-12); Aspartate Amino Transferase 389 U/L (14-36); Bilirubin,Total 0.6 mg/dL (0.2-1.3); Blood Urea Nitrogen 10 mg/dL (7-17); Calcium 8.4 mg/dL (8.4-10.2); Carbon Dioxide 27 mmol/L (22-30); Chloride 98 mmol/L (98-107); Estimated CRCL calculation 83 ml/min; Estimated Glomerular Filt Rate > 60; Glucose 136 mg/dL (65-110); Sodium 133 mmol/L (137-145)
[2024-08-12 16:04] LABS: Band Neutrophils Percent 11 % (0-6); Lymphocytes Absolute Manual 0.44 K/mm3 (1.1-4.5); Monocytes Absolute Manual 0.63 K/mm3 (0.1-0.90); Monocytes Percent Manual 10 % (3-9); Neutrophils Absolute Manual 5.22 K/mm3 (1.7-7.2); Neutrophils Percent Manual 72 % (46-73); Total Cells Counted 100
[2024-08-12 16:05] LABS: Anisocytosis 1+; Hypochromasia 1+; Macrocytosis 1+ (NORMAL); Platelet Estimate Adequate (Adequate); Schistocytes None Seen
--- NOTE | 2024-08-12 18:06 | ED.SOB ---
HPI - SOB/Dyspnea General Chief Complaint: Shortness of Breath/Dyspnea Stated Complaint: SOB Time Seen by Provider: 08/12/24 18:01 Source: patient Mode of arrival: ambulatory Limitations: no limitations History of Present Illness HPI Narrative: 68 years old white female came to the ED by private car from home complaining of sudden onset of shortness of breath last night with productive cough if yellowish sputum. She denies any fever or chills or nausea or vomiting or chest pain. Patient is not on oxygen at home. History of hyperlipidemia not taking medicine, AFib on Eliquis, congestive heart failure,, T9 and T10 compression fracture, diagnosed on June 2024, nontraumatic currently on hydrocodone. , lung cancer is stage III, on chemotherapy finished radiation therapy, Dr. dixon. Patient went to [facility] days ago for kyphoplasty, had tachyarrhythmia at that time and was discharged on event monitor without surgery. Related Data Home Medications ?Medication ?Instructions ?Recorded ?Confirmed ?Last Taken ?Type alprazolam 0.25 mg tablet (Xanax) 0.25 mg PO BID PRN Anxiety 04/30/20 08/12/24 Unknown History diphenhydramine HCl 25 mg capsule 25 mg PO HS 10/14/23 08/12/24 Unknown History (Benadryl) gabapentin 300 mg capsule 300 mg PO HS 10/14/23 08/12/24 Unknown History fluticasone propionate 50 1 spray intranasal DAILY PRN 06/28/24 08/12/24 Unknown History mcg/actuation nasal allergy symptoms spray,suspension ibuprofen 200 mg tablet (Advil) 400 mg PO Q6H PRN fever or pain 06/28/24 08/12/24 08/12/24 History sacubitril 24 mg-valsartan 26 mg 1 tablet PO BID 06/28/24 08/12/24 Unknown History tablet (Entresto) sotorasib 320 mg tablet (Lumakras) 960 mg PO QHS 06/28/24 08/12/24 Unknown History lidocaine 5 % topical patch 2 patch topical DAILY 08/12/24 08/12/24 Unknown History Allergies Allergy/AdvReac Type Severity Reaction Status Date / Time pentazocine (From Anjali) Allergy Irritable Verified 08/12/24 14:57 [facility] Past Medical History Medical History Chronic anticoagulation Due to atrial fibrillation Paroxysmal atrial fibrillation 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 Hypertension Surgical History Surgical History History of insertion of tunneled central venous catheter (CVC) with port (04/2020) History of laparoscopy History of hysterectomy (1997) History of tonsillectomy (1965) History of cholecystectomy (1998) Family History Family History Grandparent Lung cancer Mother Breast cancer Small bowel cancer FH: kidney cancer Skin cancer Mother No problems noted. Father Skin cancer Social History Social History Social History: Patient lives at home with her of 50 years. She has 1 son. 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 She used to smoke a some much as 2 packs of cigarettes per day and started smoking around age 19. She cut back significantly on her smoking after cancer diagnosis in 2020. She still smokes 1 or 2 cigarettes a day. She denies any history of alcohol use or illicit substance use. Surrogate medical decision maker: Elliott Wallis, spouse Code status: DNR/DNI Smoking packs per day: 0.5 Smoking cigarettes per day: 10.0 Years smoked: 40 Smoking pack-years: 20.00 Smoking status: Current some day smoker Tobacco type: cigarettes Second hand tobacco smoke exposure: No Additional smoking assessment comments: cutting back since diagnosis Alcohol intake: never Substance use: never Substance use type: does not use Do You Feel Safe in your Home?: Yes Lack of Transportation: No Lack of Food: Never True Current Housing: I Have Housing Concerned About Future Housing: No Difficulty Paying Gas/Electric Bills: No Difficulty Paying for Meds: No Currently Unemployed: No Education: Trade/Vocational Certificate Difficulty w/ Childcare or Family Care: No Living arrangements: with family Spiritual care concerns: No Exam Narrative: General appearance: Well-developed, well-nourished Skin: Normal color Head: Normocephalic, nontraumatic Eyes: Clear conjunctiva ENT: Oropharynx normal, ears normal, nose normal Neck: Supple, nontender Chest and respiratory: Airway patent, mild respiratory distress, diminution of air entry bilaterally, no rhonchi or wheezing Heart: Tachycardia Abdomen: Soft, nontender, no organomegaly, quiet bowel sounds Vascular: Normal peripheral pulses, normal capillary refill. Musculoskeletal: Normal range of motion, nontender back Neurologic: Alert and oriented ?3, GAS DESULFURIZER is normal as tested, no gross motor deficit Course Vital Signs Vital signs: Vital Signs Temperature 36.7 C 08/12/24 15:00 Pulse Rate 111 H 08/12/24 15:00 Respiratory Rate 26 H 08/12/24 15:00 Blood Pressure 141/100 H 08/12/24 15:00 Pulse Oximetry 78 L 08/12/24 15:00 Oxygen Delivery Room Air 08/12/24 15:00 Temperature 36.8 C 08/13/24 20:00 Pulse Rate 77 08/13/24 22:00 Respiratory Rate 97 H 08/13/24 20:35 Blood Pressure 112/60 08/13/24 22:00 Pulse Oximetry 97 08/13/24 20:01 Oxygen Delivery Nasal Cannula 08/13/24 20:01 Oxygen Flow Rate 2 08/13/24 20:01 Fraction of Inspired Oxygen 28 08/13/24 20:01 MDM - SOB/Dyspnea MDM Narrative Medical decision making narrative: 68 years old white female came with shortness of breath started yesterday Vital signs showing blood pressure 141/100, heart rate 111 AFib with RVR, respiratory rate 26, saturation on room air 78%. Physical examination showing labored breathing, restless complaining of back pain and would like to as some pain medication. Differential diagnosis include coronary artery disease, pneumonia, pleural effusion, pneumothorax, congestive heart failure. Blood workup today includes CBC, CMP, troponin, proBNP, blood culture, CRP showed sodium 133,, AST 389, proBNP 2930, Blood gas on 2 L showing pH 7.35, pCO2 48.3, PO2 53.6, bicarb 26.4, oxygen saturation on 2 L 86.2. Oxygen increased to 4 liter/minute. Chest x-ray showed bilateral pneumonia versus CHF In the ED patient received Rocephin 1 g, zihraomycin 500 mg, Lasix 60 mg, Dilaudid 0.5 mg, Zofran 4 mg IV. Diagnosis CHF versus pneumonia Admit to hospitalist. Differential Diagnosis Differential diagnosis: Likely other (As above) Medical Records Attestation: I reviewed the patient's medical records. Lab Data Attestation: I reviewed the patient's lab results. 08/13/24 06:05 08/13/24 06:05 Labs: Lab Results 08/12/24 08/12/24 08/12/24 Range/Units 15:26 18:35 23:43 WBC 6.3 (4.5-10.0) K/mm3 RBC 4.07 L (4.2-5.4) M/mm3 Hgb 14.2 (12.0-15.0) g/dL Hct 44.8 (37.0-47.0) % MCV 110.1 H (80-100) fl MCH 34.9 H (26-34) pg MCHC 31.7 L (32-36) g/dl RDW 13.6 (11.5-14.5) % Plt Count 168 (150-375) k/mm3 MPV 9.0 (7.4-10.4) fl Immature Gran % (Auto) Not Reportable Neut % (Auto) Not Reportable Lymph % (Auto) Not Reportable [place] % (Auto) Not Reportable Eos % (Auto) Not Reportable Baso % (Auto) Not Reportable Lymph # (Auto) Not Reportable [place] # (Auto) Not Reportable Eos # (Auto) Not Reportable Baso # (Auto) Not Reportable Abs Immat Gran (auto) Not Reportable Absolute Neuts (auto) Not Reportable Absolute Nucleated RBC Not Reportable Total Counted 100 Neutrophils % (Manual) 72 (46-73) % Band Neutrophils % 11 H (0-6) % Lymphocytes % (Manual) 7.0 L (18-44) % Monocytes % (Manual) 10 H (3-9) % Nucleated RBC % Not Reportable Abs Neuts (Manual) 5.22 (1.7-7.2) K/mm3 Abs Lymphs (Manual) 0.44 L (1.1-4.5) K/mm3 Abs Monocytes (Manual) 0.63 (0.1-0.90) K/mm3 Platelet Estimate Adequate (Adequate) Hypochromasia 1+ Anisocytosis 1+ Macrocytosis 1+ (NORMAL) Schistocytes None seen Sodium 133 L (137-145) mmol/L Potassium 4.0 (3.4-5.0) mmol/L Chloride 98 (98-107) mmol/L Carbon Dioxide 27 (22-30) mmol/L Anion Gap 8 (4-12) mmol/L BUN 10 D (7-17) mg/dL Creatinine 0.54 L (0.7-1.0) mg/dL Estim Creat Clear Calc 83 ml/min Estimated GFR > 60 (59 - ) Glucose 136 H (65-110) mg/dL Lactic Acid 0.9 (0.7-2.0) mmol/L Calcium 8.4 (8.4-10.2) mg/dL Magnesium (1.6-2.3) mg/dL Total Bilirubin 0.6 (0.2-1.3) mg/dL AST 389 H (14-36) U/L ALT 20 (6-35) U/L Alkaline Phosphatase 92 (38-126) U/L NT-Pro-B Natriuret Pep 2930 H (19.9-100) pg/mL Total Protein 6.0 L (6.3-8.2) g/dL Albumin 3.4 L (3.5-5.1) g/dL Nasal MRSA (PCR) Not detected (NOT DETECTE) Influenza A (RT-PCR) Negative (Negative) Influenza B (RT-PCR) Negative (Negative) SARS-CoV-2 RNA (RT-PCR) Negative (Negative) 08/13/24 08/13/24 Range/Units 06:05 06:05 WBC 3.9 L (4.5-10.0) K/mm3 RBC 3.73 L (4.2-5.4) M/mm3 Hgb 13.2 (12.0-15.0) g/dL Hct 41.4 (37.0-47.0) % MCV 111.0 H (80-100) fl MCH 35.4 H (26-34) pg MCHC 31.9 L (32-36) g/dl RDW 13.7 (11.5-14.5) % Plt Count 165 (150-375) k/mm3 MPV 9.3 (7.4-10.4) fl Immature Gran % (Auto) 0.3 Neut % (Auto) 67.4 Lymph % (Auto) 13.2 L [place] % (Auto) 18.8 H Eos % (Auto) 0.0 Baso % (Auto) 0.3 Lymph # (Auto) 0.52 L [place] # (Auto) 0.7 H Eos # (Auto) 0.0 Baso # (Auto) 0.0 Abs Immat Gran (auto) 0.01 Absolute Neuts (auto) 2.7 Absolute Nucleated RBC 0.000 Total Counted Neutrophils % (Manual) (46-73) % Band Neutrophils % Not Reportable (0-6) % Lymphocytes % (Manual) (18-44) % Monocytes % (Manual) (3-9) % Nucleated RBC % 0.0 Abs Neuts (Manual) (1.7-7.2) K/mm3 Abs Lymphs (Manual) (1.1-4.5) K/mm3 Abs Monocytes (Manual) (0.1-0.90) K/mm3 Platelet Estimate Adequate (Adequate) Hypochromasia 1+ Anisocytosis Macrocytosis 1+ (NORMAL) Schistocytes None seen Sodium 133 L (137-145) mmol/L Potassium 4.0 (3.4-5.0) mmol/L Chloride 96 L (98-107) mmol/L Carbon Dioxide 33 H (22-30) mmol/L Anion Gap 4 (4-12) mmol/L BUN 11 (7-17) mg/dL Creatinine 0.68 L (0.7-1.0) mg/dL Estim Creat Clear Calc 68 ml/min Estimated GFR > 60 (59 - ) Glucose 94 (65-110) mg/dL Lactic Acid (0.7-2.0) mmol/L Calcium 7.8 L (8.4-10.2) mg/dL Magnesium 1.6 Cancelled (1.6-2.3) mg/dL Total Bilirubin (0.2-1.3) mg/dL AST (14-36) U/L ALT (6-35) U/L Alkaline Phosphatase (38-126) U/L NT-Pro-B Natriuret Pep (19.9-100) pg/mL Total Protein (6.3-8.2) g/dL Albumin (3.5-5.1) g/dL Nasal MRSA (PCR) (NOT DETECTE) Influenza A (RT-PCR) (Negative) Influenza B (RT-PCR) (Negative) SARS-CoV-2 RNA (RT-PCR) (Negative) ABG Data ABG results: 08/12/24 18:19 Puncture Site Right brachial ABG pH 7.355 ABG pCO2 48.3 H ABG pO2 53.6 L ABG PO2/FiO2 Ratio 1.91 ABG HCO3 26.4 H ABG O2 Saturation 86.2 L* ABG O2 Content 17.5 ABG Base Excess 0.2 A-a Gradient 89.0 Oxyhemoglobin 85.0 L* Total Hemoglobin 14.7 O2 Delivery Device Nasal cannula O2 Liters/Min 2.0 FiO2 28 Attestation: I personally reviewed and interpreted this ABG as follows: Interpretation: Acute hypoxic respiratory failure Imaging Data Attestation: I personally reviewed and interpreted this imaging study as follows: Radiologist's impression: Impressions Chest X-Ray 08/12/24 15:32 IMPRESSION: Bilateral pneumonia versus pulmonary edema. ECG Data EKG #1: Attestation: I personally reviewed and interpreted this ECG as follows: ECG completion date: 08/12/24 Interpretation: AFib, RVR at 111 a.m., left atrial enlargement, anterior myocardial infarction of indeterminate age, compared to EKG on 10/17/2023 interventricular conduction delay now present. Myocardial infarction finding now present, sinus rhythm no longer present Critical Care Time Critical Care Time Critical Care Time: Yes Total Critical Care Time: 30 Discharge Plan Discharge Clinical Impression: CHF (congestive heart failure) Qualifiers: Heart failure type: biventricular Qualified Code(s): I50.82 - Biventricular heart failure Pneumonia Qualifiers: Pneumonia type: due to unspecified organism Laterality: bilateral Lung location: unspecified part of lung Qualified Code(s): J18.9 - Pneumonia, unspecified organism Patient Disposition: Still a Patient Condition: Guarded Prognosis
[2024-08-12 18:22] LABS: Base Excess ABG 0.2 mEq/l (+/-2.0); Fractional Inspired Oxygen 28 %; HCO3 ABG 26.4 mEq/l (22.0-26.0); Oxygen Content ABG 17.5 %vol (16.0-22.0); PCO2 ABG 48.3 mmHg (35.0-45.0); PO2 ABG 53.6 mmHg (80.0-100.0); PO2 FiO2 Ratio Arterial Blood 1.91 %; Total Hemoglobin 14.7 g/dL (12.0-18.0); pH ABG 7.355 (7.350-7.450)
[2024-08-12 18:23] LABS: NT Pro B Type Natriuretic Pept 2930 pg/mL (19.9-100)
[2024-08-12 18:23] LABS: Oxygen Saturation ABG 86.2 % (95.0-100.0); Site Drawn RIGHT BRACHIAL
[2024-08-12 18:24] LABS: Device NASAL CANNULA
--- OUTSIDE RECORDS SUMMARY | 2024-08-12 18:47 | XMS_ITS | Clinical Summary ---
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 Take 1 tablet [...] Date Type Department Care Team Description 08/09/2024 Telephone [facility] Medical [facility] Cardiology [address] [place] [address] Regan Peraza MD 05/21/2024 10:45 AM ADMISSION DISCHARGE RN Office Visit [facility] Medical [facility] Cardiology at [address] [place] [address] Regan Peraza MD HFrEF (heart [...] on file Legal Sex Female 6:00 AM ADMISSION DISCHARGE RN Gender Identity Not on file Sexual Orientation Not on file Obstetrics History Last Filed Vital Signs Vital Sign Reading Time Taken Comments Blood Pressure 128/82 05/21/2024 10:59 AM ADMISSION DISCHARGE RN Pulse 86 05/21/2024 10:59 AM ADMISSION DISCHARGE RN Temperature - - Respiratory Rate - - Oxygen Saturation 90% 05/21/2024 10:59 AM ADMISSION DISCHARGE RN Inhaled Oxygen Concentration - - Weight 68.9 kg (152 lb) 05/21/2024 10:59 AM ADMISSION DISCHARGE RN Height 172.7 cm (5' 8) 05/21/2024 10:59 AM ADMISSION DISCHARGE RN Body Mass Index 23.11 05/21/2024 10:59 AM ADMISSION DISCHARGE RN Plan of Treatment Health Maintenance Due Date [...] 12/30/2021, Additional history exists Insurance MEDICARE [facility] [place] Care Teams Automotive Painter Relationship Specialty Start Date End Date Melida Ibarra NP [address] [place] [address] [address] PCP - General Cardiovascular Disease 07/02/24
--- OUTSIDE RECORDS SUMMARY | 2024-08-12 18:47 | XMS_ITS | Continuity of Care Document ---
Author Organization [facility] Address [address] [place] [address] Phone Care Team Providers Care Manager Shell Name Role Phone Beronica Morgan Unavailable Unavailable Advance Directives Directive Yes / No Effective Date File Name No Information Encounters Encounter Description Practice Location Reason(s) For Visit Diagnoses Date Provider Providers Copied on Encounter [facility], [address], [place], [place], [id number], [place] tel:[phone] [facility] No Information Apr-3 0-200 1 Cathy Loco. [address] , [address], [place], [address], [place]. tel:[phone] Family History Family Member Type Diagnosis Age [...]
--- OUTSIDE RECORDS SUMMARY | 2024-08-12 18:47 | XMS_ITS | Encounter Summary ---
Author Organization [facility] Address [address] [place] [address] Care Team Providers Care Resolute Professional Name Role Phone Melida Ibarra NP Primary Care Provider Encounter Details Date Type Department Care Team (Late st Contact Info) Description 08/09/[address] [facility] Medical Group Cardiology [address] [facility] [address] [place] [address] Regan Peraza MD [address] [facility] [address] [place] [address] Social History Tobacco Use Types Packs/Day Years Used Date Smoking Tobacco: Former Cigarettes Smokeless Tobacco: Never Comments Unknown Sex and Gender Information Value Date Recorded Sex Assigned at Not on file Legal Sex Female 6:00 AM ICE CREAM FREEZER HELPER Gender Identity Not on file Sexual Orientation Not on file documented as of this encounter Miscellaneous Notes * Telephone Encounter - Kae Ramirez RN - 08/09/2024 3:30 PM CDT Spoke with Breann. Breann states the physician that called is gone for the day but she was just calling to notify us that pt was there in the ER. * Telephone Encounter - Breann Hargrove - 08/09/2024 3:22 PM CDT Breann called back as she said when she spoke to Kae Ramon While I was waiting to see if Kaewas available she hung up. Please advise thank you Contact: opt 2 * Telephone Encounter - Kae Ramirez RN - 08/09/2024 3:05 PM CDT Called [facility], staff state that the physician is currently in doing a procedure and will call back once available. * Telephone Encounter - Breann Hargrove - 08/09/2024 12:31 PM CDT Ayde hunter/ Mariama called the pt is there for an abnormal EKG and Dr. Loredo at [facility] is asking to speak with either MJF or an TERRAZZO MECHANIC HELPER. Please advise thank you Contact: opt 2 documented in this encounter Plan of Treatment Not on file documented as of this encounter Visit Diagnoses Not on filedocumented in this encounter Care Teams Resolute Professional Relationship Specialty Start Date End Date Melida Ibarra, TERRAZZO MECHANIC HELPER [facility] [place] [address] [place] [address] PCP - General Cardiovascular Disease 07/02/24 documented as of this encounter
--- OUTSIDE RECORDS SUMMARY | 2024-08-12 18:47 | XMS_ITS | Clinical Summary ---
Author Organization [facility] Address [address] [place] [address] Care Team Providers Care Pastrycook Name Role Phone Freddy Gallagher MD Primary Care Provider [phone] Malik Lewis MD Unavailable Source Comments [facility],non-owned Affiliates and Associated Physician Practices is amultiple site organization consisting of ambulatory clinics and hospital sitesin [place], [place], [place] and [place]. This disclosure is being madepursuant to the Care Everywhere program and may not contain all information available regarding this patient. Last updated 17.[facility] Allergies No known active allergies Medications * [...] on file Legal Sex Female 11:10 AM RISK INVESTIGATOR Gender Identity Not on file Sexual Orientation Not on file Last Filed Vital Signs Vital Sign Reading Time Taken Comments Blood Pressure 122/73 11/01/2023 3:03 PM CDT Pulse 66 11/01/2023 3:03 PM CDT Temperature 36.6 C (97.8 F) 11/01/2023 3:03 PM CDT Respiratory Rate 20 02/03/2016 4:24 PM RISK INVESTIGATOR Oxygen Saturation 96% 11/01/2023 3:03 PM CDT [...] Visit [facility] [address] [facility] [place] [address] Crissy Kowalski MD [address] [facility] [address] [place] [address] Health Maintenance Due Date Last Done Comments [...] Insurance MEDICARE [employer] Care Teams Pastrycook Relationship Specialty Start Date End Date Freddy Gallagher MD [address] [place] [phone] PCP - General 01/28/20 Malik Lewis MD [address] [place] [phone] Medical Oncology 01/11/24
--- OUTSIDE RECORDS SUMMARY | 2024-08-12 18:47 | XMS_ITS | Encounter Summary ---
Author Organization [facility] Address [address] [place] [address] Care Team Providers Care Vehicle Inspector Name Role Phone Freddy Gallagher MD Primary Care Provider Encounter Details Date Type Department Care Team (Late st Contact Info) Description 03/25/2020 Chart Note [facility] Radiation Therapy [address] [place] [phone] [place] [address] [place] [address] Social History Tobacco Use Types [...] COVID-19? 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 MEDICAL INSURANCE COLLECTOR documented as of this encounter Plan of Treatment Not on file documented as of this encounter Visit Diagnoses Not on filedocumented in this encounter Care Teams Vehicle Inspector Relationship Specialty Start Date End Date Freddy Gallagher MD [address] [place] [address] PCP - General Gastroenterology 09/24/19 05/15/24 documented as of this encounter
--- OUTSIDE RECORDS SUMMARY | 2024-08-12 18:47 | XMS_ITS | Clinical Summary ---
Author Organization [facility] Forrest Reddyedward Address [address] [place] [address] Care Team Providers Care Perlite Grinder Name Role Phone Unavailable Primary Care Provider Unavailabl e Allergies Active Allergy Reactions Criticality Noted Date Comments Mgmqakd-Uav-Vmy Reductase Inhibitors Muscle Pain Low 08/09/2024 Medications [...] 24 hours. Active naloxone (NARCAN) 4 mg/spray Hunter, Non-Aerosol EMERGENCY USE ONLY: Administer 1 spray [...] - 08/10/2024 4:42 PM CDT Hospital Encounter [facility] [address] [place] [address] Amanuel Loredo MD Habtu, Danni Yemane, DO Gravely, Sean Eric, DO Paroxysmal atrial fibrillation with rapid ventricular response ([facility]/HCC) Discharge Disposition: Home or Self Care 08/09/2024 10:59 AM CDT Anesthesia Event [facility] Interventional Radiology S [facility] [address] [place] [address] Kae Gomez MD 08/09/2024 9:38 AM CDT - 08/09/2024 10:55 AM CDT Hospital Encounter [facility] [address] [place] [address] Malik Lewis MD 5, [facility], [facility] Ir Sandy, Karissa Ramirez, FRANKY-C Kae Gomez MD Compression fracture of T9 vertebra with routine healing, subsequent encounter Discharge Disposition: Home or Self Care 08/09/2024 Travel 08/07/2024 External Device Data STL ABSTRACTION Provider, Abstract 08/06/2024 External Device Data STL ABSTRACTION Provider, Abstract 08/05/2024 Refill [facility] Oncology and Hematology - Tadeo [address] [place] [address] Malik Lewis MD Anxiety state 07/26/2024 Orders Only [facility] Oncology and Hematology - Tadeo [address] [place] [address] Malik Lewis MD 07/04/2024 2:00 PM CDT Office Visit [facility] Oncology and Hematology - [address]ade[address] [place] [address] Malik Lewis MD Compression fracture of T9 vertebra with routine healing, subsequent encounter (Primary Dx) 07/04/2024 Refill [facility] Oncology and Hematology - Tadeo [address] [place] [address] Malik Lewis MD Non-small cell cancer of left lung (CMS/HCC) 07/03/2024 Orders Only [facility] Oncology and Hematology - Tadeo [address] [place] [address] Malik Lewis MD Compression fracture of T10 vertebra, initial encounter (CMS/HCC) (Primary Dx) 07/02/2024 External Device Data STL ABSTRACTION Provider, Abstract 07/02/2024 Orders Only [facility] Oncology and Hematology - Tadeo [address] [place] [phone] Malik Lewis MD 06/20/2024 Orders Only [facility] Oncology and Hematology - Tadeo [address] [place] [phone] Malik Lewis MD 06/20/2024 Refill [facility] Oncology and Hematology - [address]adeo [address] Malik Lewis MD Anxiety state; Non-small cell cancer of left lung (CMS/HCC) 05/27/2024 Orders Only [facility] Oncology and Hematology - [address]adeo [address] Malik Lewis MD 05/21/2024 External Device Data STL ABSTRACTION Provider, Abstract 05/16/2024 9:15 AM RESEARCH MECHANIC Office Visit [facility] Oncology and Hematology - Tadeo [address] [place] [phone] Malik Lewis MD Non-small cell cancer of [...] 2 - PCV) 12/23/18 74 Traditional Medicare ([facility]) Annual Wellness Visit 12/23 BREAST CANCER SCREENING [...] INTERFACE SYSTEM - 08/10/2024 10:48 AM CDT [address] [place] [address] [email or web address] Transthoracic Echocardiogram Patient: Yessenia Clement Study ID: ECHO COMPLETE - Gender: F : 1955 Age: 68 Race: ROBERT Height 172.7cm Study Date: 08/10/2024 Weight: 66.7kg Access. #: [id number] BP: *Referring Physician:* Manuel Bryan *Ordering Physician:* Manuel Bryan client service and consulting manager: Nurse: Indications: Atrial fibrillation/flutter. STUDY CONCLUSIONS: SUMMARY: [...] Prepared and Electronically Authenticated Khloe Wilkes Bruce [id number] Procedure Note Eder Wilkes MD - 08/10/2024 [place] [address] [email or web address] Transthoracic Echocardiogram Patient: Yessenia Clement Study ID: ECHO COMPLETE - Gender: F : 1955 Age: 68 Race: CAU Height 172.7cm Study Date: 08/10/2024 Weight: 66.7kg Access. #: [id number] BP: *Referring Physician:* Manuel Bryan *Ordering Physician:* Manuel Bryan client service and consulting manager: Nurse: Indications: Atrial fibrillation/flutter. STUDY CONCLUSIONS: SUMMARY: [...] Prepared and Electronically Authenticated Khloe Wilkes Bruce [id number] us Manuelbillie Bryan MD ORDERABLES Tawny durham Result INTERFACE SYSTEM Refer to clinic/hospital department * (ABNORMAL) CBC WITHOUT DIFFERENTIAL (08/10/2024 2:11 AM CDT) WBC 5.5 4.0 - 9.8 K/uL 08/10/2024 2:55 AM CDT [facility] RBC 3.99 3.90 - 4.90 M/uL 08/10/2024 2:55 AM CDT [facility] HEMOGLOBIN 14.1 11.8 - 14.8 g/dL 08/10/2024 2:55 AM CDT [facility] HEMATOCRIT 44.4(H) 35.5 - 44.0 % 08/10/2024 2:55 AM CDT [facility] MCV 111.3(H) 82.0 - 99.0 fL 08/10/2024 2:55 AM CDT [facility] MCH 35.3(H) 27.2 - 32.6 pg 08/10/2024 2:55 AM CDT [facility] MCHC 31.8 31.5 - 35.5 g/dL 08/10/2024 2:55 AM CDT [facility] PLATELETS 210 140 - 350 K/uL 08/10/2024 2:55 AM CDT [facility] MPV 9.4 9.3 - 12.4 fL 08/10/2024 2:55 AM CDT [facility] [employer] - [facility] RDW 13.8 11.5 - 14.5 % 08/10/2024 2:55 AM CDT [facility] RDW-STDEV 57.5(H) 37.1 - 48.7 fL 08/10/2024 2:55 AM CDT [facility] Blood Venipuncture / Unknown 08/10/2024 2:11 AM CDT 08/10/2024 2:32 AM CDT us Manuel Bryan MD HEMATOLOGY ORDERABLE S Final Result [facility] [id number] [address] [place] [address] * MAGNESIUM LEVEL (08/10/2024 2:11 AM CDT) Only the most recent of2 resultswithin the time period is included. MAGNESIUM 1.8 1.6 - 2.4 mg/dL 08/10/2024 3:28 AM CDT [facility] Blood Venipuncture / Unknown 08/10/2024 2:11 AM CDT 08/10/2024 2:31 AM CDT Manuel Bryan MD CHEMISTRY ORDERABLES Final Result Performing Organization Address City/State/[facility] Co de Phone Number [facility] [id number] [address] [place] [address] * (ABNORMAL) LIPID PANEL (08/10/2024 2:11 AM CDT) CHOLESTEROL 167 <200 mg/dL 08/10/2024 3:28 AM CDT [facility] TRIGLYCERIDE 78 <150 mg/dL 08/10/2024 3:28 AM CDT [facility] HDL 43 40 - 59 mg/dL 08/10/2024 3:28 AM CDT [facility] LDL CALCULATED 108(H) <100 mg/dL 08/10/2024 3:28 AM CDT [facility] NON-HDL CHOLESTEROL 124 <130 mg/dL 08/10/2024 3:28 AM CDT [facility] Blood Venipuncture / Unknown 08/10/2024 2:11 AM CDT 08/10/2024 2:31 AM CDT Narrative [facility] - 08/10/2024 3:28 AM CDT TOTAL CHOLESTEROL [...] Manuel Bryan MD CHEMISTRY ORDERABLES Final Result [facility]OR[facility] SERVICES [facility]# [id number] [address] [facility] [place] [address] * BASIC METABOLIC PANEL (08/10/2024 2:11 AM CDT) Only the most recent of2 resultswithin the time period is included. SODIUM 136 136 - 145 mmol/L 08/10/2024 3:28 AM T [facility] - . [facility] POTASSIUM 4.7 3.5 - 5.0 mmol/L 08/10/2024 3:28 AM T [facility] - . [facility] CHLORIDE 100 98 - 107 mmol/L 08/10/2024 3:28 AM CDT [facility] CO2 28 22 - 29 mmol/L 08/10/2024 3:28 AM CDT [facility] - . [facility] CALCIUM 9.2 8.6 - 10.2 mg/dL 08/10/2024 3:28 AM CDT [facility] BUN 13 8 - 23 mg/dL 08/10/2024 3:28 AM T [facility] - . [facility] CREATININE 0.75 0.51 - 0.95 mg/dL 08/10/2024 3:28 AM CDT [facility] - . [facility] GLUCOSE 76 74 - 99 mg/dL 08/10/2024 3:[address] [facility] GFR >60 >=60 mL/min/1.7 3 sq meter 08/10/2024 3:[address] [facility] Comment:eGFR calculated with 2020 CKD-EPI equation. Vegetarian diet, extremely high or low muscle mass, and may affect results. Cystatin C with Glomerular Filtration Rate is a suitable alternative for these patients. ANION GAP 8 8 - 16 mmol/L 08/10/2024 3:[address] [facility] Blood Venipuncture / Unknown 08/10/2024 2:11 AM CDT 08/10/2024 2:31 AM CDT us Manuel Bryan MD CHEMISTRY ORDERABLES Final Result [facility] CLIA# [id number] [address] [place] [address] * EKG 12-LEAD (08/09/2024 12:54 PM CDT) Only the most recent of3 resultswithin the time period is included. 08/09/2024 12:5 4 PM CDT Narrative INTERFACE SYSTEM - 08/09/2024 5:03 PM CDT [facility] [address] [place] [address] Test Date: 2024-08-09 Pat Name: YESSENIA CLEMENT Department: 40 Room: 3080 Gender: F [employer] Intermediary: [email or web address] : 1955 Requested By: AMANUEL Jolley Order Number: [id number] Reading MD: Ian Cottrell Measurements Intervals [place] Rate: 75 P: 61 HI: 175 QRS: -64 QRSD: 114 T: 87 QT: 407 QTc: 455 Interpretive Statements Sinus rhythm Left anterior fascicular block Anterior infarct, old Electronically Signed On 08-09-2024 17:03:44 CDT by Ian Cottrell Procedure Note Ian Cottrell MD - 08/09/2024 [facility] [address] , [place] [address] Test Date: 2024-08-09 Pat Name: YESSENIA CLEMENT Department: 40 Room: 3080 Gender: F [employer] Intermediary: [email or web address] : 1955 Requested By: AMANUEL Jolley Order Number: [id number] Reading MD: Ian Cottrell Measurements Intervals [place] Rate: 75 P: 61 HI: 175 QRS: -64 QRSD: 114 T: 87 [...] CDT 08/09/2024 12:42 PM CDT us Protocol [facility] Emergency MD URINE ORDERABLES Fin al Result Performing Organization Address [facility]/State/[facility] Co de Phone Number [facility]ATORY [facility]# [id number] [address] [facility] [place] [address] * Critical Care (08/09/2024 11:24 AM CDT) [...] CBC WITH DIFFERENTIAL (08/09/2024 10:07 AM CDT) [facility] WBC 5.5 4.0 - 9.8 K/uL 08/09/2024 10:35 AM CDT [facility] RBC 4.55 3.90 - 4.90 M/uL 08/09/2024 10:35 AM CDT [facility] HEMOGLOBIN 16.0(H) 11.8 - 14.8 g/dL 08/09/2024 10:35 AM CDT [facility] HEMATOCRIT 50.2(H) 35.5 - 44.0 % 08/09/2024 10:35 AM CDT [facility] MCV 110.3(H) 82.0 - 99.0 fL 08/09/2024 10:35 AM CDT [facility] MCH 35.2(H) 27.2 - 32.6 pg 08/09/2024 10:35 AM CDT [facility] MCHC 31.9 31.5 - 35.5 g/dL 08/09/2024 10:35 AM CDT [facility] RDW 13.9 11.5 - 14.5 % 08/09/2024 10:35 AM CDT [facility] RDW-STDEV 57.7(H) 37.1 - 48.7 fL 08/09/2024 10:35 AM CDT [facility] PLATELETS 232 140 - 350 K/uL 08/09/2024 10:35 AM CDT [facility] MPV 9.7 9.3 - 12.4 fL 08/09/2024 10:35 AM CDT [facility] - . [facility] NEUTROPHILS 71 % 08/09/2024 10:35 AM CDT [facility] - . [facility] LYMPHOCYTES 21 % 08/09/2024 10:35 AM CDT [facility] - . [facility] MONOCYTES 8 % 08/09/2024 10:35 AM CDT [facility] - . [facility] EOSINOPHILS 0 % 08/09/2024 10:35 AM CDT [facility] - . [facility] BASOPHILS 0 % 08/09/2024 10:35 AM CDT [facility] - [facility] IMMATURE GRANULOCYTES 0 % 08/09/2024 10:35 AM CDT [facility] - . [facility] NEUTROPHIL ABSOLUTE 3.88 1.90 - 7.00 K/uL 08/09/2024 10:35 AM CDT [facility] - . [facility] LYMPHOCYTE ABSOLUTE 1.16 0.70 - 4.50 K/uL 08/09/2024 10:35 AM CDT [facility] - . [facility] MONOCYTE ABSOLUTE 0.41 0.10 - 1.30 K/uL 08/09/2024 10:35 AM CDT [facility] - . [facility] EOSINOPHIL ABSOLUTE 0.01 0.00 - 0.70 K/uL 08/09/2024 10:35 AM CDT [facility] - . [facility] BASOPHILS ABSOLUTE 0.01 0.00 - 0.20 K/uL 08/09/2024 10:35 AM T [facility] - . [facility] IMMATURE GRANULOCYTES ABSOLUTE 0.02 0.00 - 0.03 K/uL 08/09/2024 10:35 AM T [facility] - [facility] Blood Venipuncture / Unknown 08/09/2024 10:07 AM CDT 08/09/2024 10:21 AM CDT us Mejia Davila MD HEMATOLOGY ORDERABLES Final R esult [facility] SERVICES - [facility]# [id number] [address] [place] [address] * TSH (08/09/2024 10:07 AM CDT) Pathologist [facility] TSH 1.24 0.27 - 4.20 uIU/mL 08/09/2024 6:19 PM CDT [facility] Blood Venipuncture / Unknown 08/09/2024 10:07 AM CDT 08/09/2024 10:21 AM CDT Katlin Quesada DO CHEMISTRY ORDERABLES Final Result Performing Organization Address [facility]/ZIP Co de Phone Number [facility]# [id number] [address] [place] [address] * HEMOGLOBIN A1C (08/09/2024 10:07 AM CDT) [facility] HEMOGLOBIN A1C 5.6 <5.7 % 08/09/2024 3:58 PM CDT [facility] EST. AVG GLUCOSE, A1C 114 mg/dL 08/09/2024 3:58 PM CDT [facility] Blood Venipuncture / Unknown 08/09/2024 10:07 AM CDT 08/09/2024 10:21 AM CDT Narrative [facility] - 08/09/2024 3:58 PM CDT HGB A1C INTERPRETATION NORMAL: <5.7% PRE-DIABETES: 5.7 - 6.4% DIABETES: 6.5% OR GREATER Manuel Bryan MD CHEMISTRY ORDERABLES Final Result Performing Organization Address City/[facility]/ZIP Co de Phone Number [facility]# [id number] [address] [place] [address] * MRI THORACIC W WO CONTRAST (07/25/2024 [...] Insurance MEDICARE PART A AND B PH[facility]ICIANS [facility] [employer] Medicare Part D MEDICARE PART A AND B PH[employer] [facility] Advance Directives For more information, please contact: [phone] * Full Code (Latest Code Status on File) Date Activated Date Inactivated Comments 08/09/2024 2:42 PM 08/10/2024 6:47 PM
--- OUTSIDE RECORDS SUMMARY | 2024-08-12 18:47 | XMS_ITS | Encounter Summary ---
Author Organization [facility] [employer] Address [address] [place] [address] Care Team Providers Care Cable Engineer Name Role Phone Freddy Gallagher MD Primary Care Provider Reason for Visit * Reason Onset Date Comments Medication Refill 09/05/2022 Encounter Details Date Type Department Care Team (Late st Contact Info) Description 09/05/2022 Telephone [facility] Oncology and Hematology - Tadeo [address] [facility] [address] [place] [address] Malik Lewis MD [address] [facility] [address] [place] [address] Medication Refill Social History Tobacco [...] on filedocumented in this encounter Care Teams Cable Engineer Relationship Specialty Start Date End Date Freddy Gallagher MD [address] [place] [phone] PCP - General Gastroenterology 09/24/19 05/15/24 documented as of this encounter
--- OUTSIDE RECORDS SUMMARY | 2024-08-12 18:47 | XMS_ITS | Referral Summary ---
Author Organization [facility] [address] [facility] [address] Address [address] [place] [address] Care Team Providers Care Hand I Cutter Name Role Phone Melida Ibarra NP Primary Care Provider [phone] Encounters Date Type Department Care Team Description 08/09/2024 Telephone [facility] Cardiology [address] [facility] [address] [place] [address] Regan Peraza MD 05/21/2024 10:45 AM ART CONSULTANT Office Visit [facility] Cardiology at [address] [place] [address] Regan Peraza MD HFrEF (heart [...] mg tabletIndications:L ipid screening,Coronary artery disease involving [place] coronary artery of [place] heart without angina pectoris Take 1 tablet [...] on file Legal Sex Female 6:00 AM ART CONSULTANT Gender Identity Not on file Sexual Orientation Not on file Last Filed Vital Signs Vital Sign Reading Time Taken Comments Blood Pressure 128/82 05/21/2024 10:59 AM ART CONSULTANT Pulse 86 05/21/2024 10:59 AM ART CONSULTANT Temperature - - Respiratory Rate - - Oxygen Saturation 90% 05/21/2024 10:59 AM ART CONSULTANT Inhaled Oxygen Concentration - - Weight 68.9 kg (152 lb) 05/21/2024 10:59 AM ART CONSULTANT Height 172.7 cm (5' 8) 05/21/2024 10:59 AM ART CONSULTANT Body Mass Index 23.11 05/21/2024 10:59 AM ART CONSULTANT Plan of Treatment Not on file Insurance MEDICARE [employer] Care Teams Hand I Cutter Relationship Specialty Start Date End Date Melida Ibarra NP [address] [place] [phone] [address] PCP - General Cardiovascular Disease 07/02/24
[2024-08-12 19:03] LABS: Lactic Acid Reflex 0.9 mmol/L (0.7-2.0)
[2024-08-12] MEDS: ONDANSETRON INJ 4 MG/2 ML VIAL IV PUSH (19:32)
[2024-08-12] MEDS: HYDROmorphone HCL INJ (*CRX) 2 MG/ML VIAL 0.5 MG IV PUSH (19:34)
[2024-08-12] MEDS: FUROSEMIDE INJ 40 MG/4 ML VIAL 60 MG IV PUSH (19:38)
[2024-08-12] MEDS: AZITHROMYCIN 500 MG/NS 250 ML 500 MG/250 ML BAG 250 MG IVPB (19:39)
--- NOTE | 2024-08-12 20:24 | P.HP_ITS ---
H&P: HPI History of Present Illness Date/Time: 08/12/24 20:24 Chief Complaint: Shortness of breath Narrative: 68-year-old female with a past medical history of dilated cardiomyopathy resulting in biventricular congestive heart failure with EF of 20-25%, paroxysmal atrial fibrillation/flutter, non-small cell lung cancer status post chemo, radiation and immunotherapy, essential hypertension, peripheral neuropathy and anxiety who presents to the ER via private vehicle for evaluation of shortness of breath. In triage patient was noted to be satting 70% on room air. Patient does not use supplemental oxygen at baseline. She reports that she developed cough productive of yellow sputum yesterday. She has been having intermittent hot flashes with some episodes of feeling chilled but she reports that she frequently feels chilled at baseline. She denies any recent ill contacts. She denies noticing having any wheezing but on exam was noted to have some anterior wheezes end-expiratory. She reports that when she had her lung biopsy the radiologist told her that she did not have any evidence of emphysema which she is unsure if she has COPD. Does not use inhalers at home. She is still on a oral oncologic medication for her lung cancer. She had to stop Keytruda last year due to Keytruda affecting unintended organ systems. She reports chronic back pain since March of this year. She has known compression fractures of T9-T10. She went to [facility] last week to have a kyphoplasty but the procedure had to be canceled due to rapid heart rate. She had an event monitor placed. She is supposed to follow-up with Dr. Peraza as outpatient she denies any chest pain or palpitations. In the ER patient was noted to have several brief episodes of a flutter RVR. X-ray in the ER demonstrated pulmonary edema versus pneumonia. Patient was initially given a 60 mg IV push of Lasix due to elevated BNP. After arrival to the intermediate unit patient did have more prolonged episodes of a flutter with heart rates in the 140s and 150s. One episode was approximately hour long. A gave order for IV Lopressor 5 mg with improvement in heart rate. Patient was sent for CT scan of the chest without contrast which demonstrated findings more consistent with pneumonia. Patient had a normal white count but had bandemia. She was given doses of Rocephin and azithromycin in the ER for empiric coverage of community-acquired pneumonia. She has a history of dilated cardiomyopathy presumed due to chemotherapeutic agents. Her EF in 2023 was 20-25%. She had a stress test in November of 2023 which demonstrated improved ejection fraction up to 52%. Review of Systems 2 Review of Systems: 12 systems were reviewed with pertinent positives and negatives per HPI. Except as documented in the HPI, all other systems were reviewed and are negative. [facility] Past Medical History Medical History Chronic anticoagulation Due to atrial fibrillation Paroxysmal atrial fibrillation 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 Hypertension Surgical History Surgical History History of insertion of tunneled central venous catheter (CVC) with port (04/2020) History of laparoscopy History of hysterectomy (1997) History of tonsillectomy (1965) History of cholecystectomy (1998) Family History Family History Grandparent Lung cancer Mother Breast cancer Small bowel cancer FH: kidney cancer Skin cancer Mother No problems noted. Father Skin cancer Social History Social History Social History: Patient lives at home with her of 50 years. She has 1 son. 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 She used to smoke a some much as 2 packs of cigarettes per day and started smoking around age 19. She cut back significantly on her smoking after cancer diagnosis in 2020. She still smokes 1 or 2 cigarettes a day. She denies any history of alcohol use or illicit substance use. Surrogate medical decision maker: Elliott Wallis, spouse Code status: DNR/DNI Smoking packs per day: 0.5 Smoking cigarettes per day: 10.0 Years smoked: 40 Smoking pack-years: 20.00 Smoking status: Current some day smoker Tobacco type: cigarettes Second hand tobacco smoke exposure: No Additional smoking assessment comments: cutting back since diagnosis Alcohol intake: never Substance use: never Substance use type: does not use Do You Feel Safe in your Home?: Yes Lack of Transportation: No Lack of Food: Never True Current Housing: I Have Housing Concerned About Future Housing: No Difficulty Paying Gas/Electric Bills: No Difficulty Paying for Meds: No Currently Unemployed: No Education: Trade/Vocational Certificate Difficulty w/ Childcare or Family Care: No Living arrangements: with family Spiritual care concerns: No Meds Home Medications and Allergies Home Medications ?Medication ?Instructions ?Recorded ?Confirmed ?Type alprazolam 0.25 mg tablet (Xanax) 0.25 mg PO BID PRN Anxiety 04/30/20 08/12/24 History diphenhydramine HCl 25 mg capsule 25 mg PO HS 10/14/23 08/12/24 History (Benadryl) gabapentin 300 mg capsule 300 mg PO HS 10/14/23 08/12/24 History apixaban 5 mg tablet (Eliquis) 5 mg PO Q12HR #60 tabs 10/18/23 08/12/24 Rx metoprolol succinate 25 mg 25 mg PO QAM #30 tabs 10/18/23 08/12/24 Rx tablet,extended release 24 hr (Toprol XL) fluticasone propionate 50 1 spray intranasal DAILY PRN 06/28/24 08/12/24 History mcg/actuation nasal allergy symptoms spray,suspension ibuprofen 200 mg tablet (Advil) 400 mg PO Q6H PRN fever or pain 06/28/24 08/12/24 History sacubitril 24 mg-valsartan 26 mg 1 tablet PO BID 06/28/24 08/12/24 History tablet (Entresto) sotorasib 320 mg tablet (Lumakras) 960 mg PO QHS 06/28/24 08/12/24 History hydrocodone 5 mg-acetaminophen 325 1 tablet PO BID PRN pain, severe 07/15/24 08/12/24 Rx mg tablet #60 tabs lidocaine 5 % topical patch 2 patch topical DAILY 08/12/24 08/12/24 History Allergies Allergy/AdvReac Type Severity Reaction Status Date / Time pentazocine (From Anjali) Allergy Irritable Verified 08/12/24 14:57 Vital Signs Vital Signs - 24 hr 08/12/24 15:00 08/12/24 15:05 08/12/24 15:11 Temperature 98.0 F Pulse Rate 111 H Respiratory Rate 26 H Blood Pressure 141/100 H Pulse Oximetry 78 L 85 L 96 Oxygen Delivery Room Air Room Air Nasal Cannula Oxygen Flow Rate 2 08/12/24 15:17 08/12/24 19:00 Temperature Pulse Rate 104 H 103 H Respiratory Rate 20 16 Blood Pressure 152/89 H 147/87 H Pulse Oximetry 94 93 Oxygen Delivery Oxygen Flow Rate Exam 2 Narrative: Weight 66.5 kg BMI 22.3 Const: Other: Mildly ill-appearing but otherwise No overt distress, well-developed well- nourished HENMT: Other: Mucous membranes are dry, no oral pharyngeal erythema Eyes: Other: No scleral icterus, no conjunctival pallor Neck: Other: No JVD, no lymphadenopathy Resp: Other: Wheezing in anterior lung broderick, coarse crackles at bilateral base Cardio: Other: Mildly tachycardic, 2+ bilateral radial pedal pulses, no JVD GI: Other: Soft, nontender, nondistended, positive bowel sounds Back/Spine/Pelvis: Other: Marked thoracic kyphosis Skin: Other: No pallor, non jaundice Neuro: Other: Alert orient x4, speech is clear, no facial asymmetry, no localizing neurologic deficits noted during the course of conversation Extrem: Other: No clubbing, cyanosis or edema Psych: Other: Appropriate mood and affect, pleasant and cooperative, judgment and insight intact H&P: Results Labs Labs: Laboratory Tests 08/12/24 15:26 08/12/24 15:26 08/12/24 08/12/24 08/12/24 15:26 18:19 18:35 WBC 6.3 RBC 4.07 L Hgb 14.2 Hct 44.8 MCV 110.1 H MCH 34.9 H MCHC 31.7 L RDW 13.6 Plt Count 168 MPV 9.0 Immature Gran % (Auto) Not Reportable Neut % (Auto) Not Reportable Lymph % (Auto) Not Reportable [place] % (Auto) Not Reportable Eos % (Auto) Not Reportable Baso % (Auto) Not Reportable Lymph # (Auto) Not Reportable [place] # (Auto) Not Reportable Eos # (Auto) Not Reportable Baso # (Auto) Not Reportable Abs Immat Gran (auto) Not Reportable Absolute Neuts (auto) Not Reportable Absolute Nucleated RBC Not Reportable Total Counted 100 Neutrophils % (Manual) 72 Band Neutrophils % 11 H Lymphocytes % (Manual) 7.0 L Monocytes % (Manual) 10 H Nucleated RBC % Not Reportable Abs Neuts (Manual) 5.22 Abs Lymphs (Manual) 0.44 L Abs Monocytes (Manual) 0.63 Platelet Estimate Adequate Hypochromasia 1+ Anisocytosis 1+ Macrocytosis 1+ Schistocytes None seen Puncture Site Right brachial ABG pH 7.355 ABG pCO2 48.3 H ABG pO2 53.6 L ABG PO2/FiO2 Ratio 1.91 ABG HCO3 26.4 H ABG O2 Saturation 86.2 L* ABG O2 Content 17.5 ABG Base Excess 0.2 A-a Gradient 89.0 Oxyhemoglobin 85.0 L* Total Hemoglobin 14.7 O2 Delivery Device Nasal cannula O2 Liters/Min 2.0 FiO2 28 Sodium 133 L Potassium 4.0 Chloride 98 Carbon Dioxide 27 Anion Gap 8 BUN 10 D Creatinine 0.54 L Estim Creat Clear Calc 83 Estimated GFR > 60 Glucose 136 H Lactic Acid 0.9 Calcium 8.4 Total Bilirubin 0.6 AST 389 H ALT 20 Alkaline Phosphatase 92 NT-Pro-B Natriuret Pep 2930 H Total Protein 6.0 L Albumin 3.4 L Impressions Chest X-Ray 08/12/24 15:32 IMPRESSION: Bilateral pneumonia versus pulmonary edema. EKG: Sinus tachycardia rate 111, left atrial enlargement, intraventricular conduction delay, anterior WA indeterminate age with new intraventricular conduction delay and WA finding compared to prior EKG from September 2023 prior EKG had also demonstrated right axis deviation S2 no longer present and left bundle- branch block no longer present. EKG awaiting cardiology interpretation All imaging and EKGs personally reviewed and interpreted. And unless stated otherwise agree with radiologic and cardiology interpretation. Assessment and Plan Assessment and plan (1) Acute hypoxic on chronic hypercapnic respiratory failure: Code(s): J96.01 - Acute respiratory failure with hypoxia; J96.12 - Chronic respiratory failure with hypercapnia Status: Acute (2) CHF (congestive heart failure): Qualifiers: Heart failure type: biventricular Qualified Code(s): I50.82 - Biventricular heart failure Code(s): I50.9 - Heart failure, unspecified Status: Acute (3) Chronic anticoagulation: Code(s): Z79.01 - [facility] (current) use of anticoagulants Status: Acute (4) Non-small cell lung cancer: Onset Date: 02/2020 Qualifiers: Laterality: unspecified laterality Qualified Code(s): C34.90 - Malignant neoplasm of unspecified part of unspecified bronchus or lung Code(s): C34.90 - Malignant neoplasm of unspecified part of unspecified bronchus or lung Status: Acute Assessment and Plan: On immunotherapy (5) Pneumonia: Qualifiers: Laterality: bilateral Lung location: unspecified part of lung P neumonia type: due to unspecified organism Qualified Code(s): J18.9 - Pneumonia, unspecified organism Code(s): J18.9 - Pneumonia, unspecified organism Status: Acute Plan The patient has acute hypoxic respiratory failure due to pneumonia. Patient been placed on empiric antibiotic therapy with Rocephin and azithromycin. Blood cultures have been obtained and are pending. Will obtain urine Legionella pneumococcal antigen studies. Will wean oxygen as tolerated. Patient appear to have some mild hypercapnic respiratory failure at baseline. No evidence of acute exacerbation but the patient is actively wheezing. Will add scheduled nebulizer treatment to help with pulmonary toilet. Will send sputum for Gram stain and culture. Patient does have a history of dilated cardiomyopathy the with systolic dysfunction however her EF is significantly improved compared to initial diagnosis re if is 52%. The patient had received Lasix in the ER but the patient actually appears intervascular volume depleted and mucous membranes are dry.The patient is having intermittent bouts of tachycardia. I suspect underlying episodes of atrial flutter. Although there may be some component of sinus tachycardia underlying due to sepsis and volume depletion. I did give the patient 1 dose of IV Lopressor with improvement in her heart rate. Several hours later she she did develop hypotension. Given that she appeared intervascular volume depleted in the setting tachycardia hypotension a 1 L fluid bolus was given over 2 hours. The patient did have significant improvement in her blood pressures. Her pediatric pathologist CC more consistent with sinus tachycardia at that time and given her good response fluids an additional 1 Liter over 4 hours. Will monitor strict I&O's and re-evaluate fluid status. The patient has had 1.4 L of urine output since arrival to the IMU. If she still appears volume depleted she may benefit from 1 more L. the patient is established with Dr. Peraza and I feel the patient would benefit from evaluation given that she has had also been having these episodes of tachycardia prior to her kyphoplasty last week. The hospitalist group pad requested a CTA of the chest to rule out pulmonary embolism from the ER but test was ordered in the ER. The patient is on chronic anticoagulation with Eliquis but she did have her Eliquis held for possible procedure. I do not really want to expose patient to more radiation but the risks of a missed PE much higher than the risks of radiation exposure. Will order CTA of the chest with PE protocol. Patient could still have come some component of CHF exacerbation better clinical picture seems more consistent with infectious process. Although her bandemia could very well be due to her antineoplastic medication. Will repeat CBC and electrolyte panel in a.m.. Quality VTE Prophylaxis VTE prophylaxis: pharmacologic ordered (Continue home Eliquis.) Hospitalist MIPS Advance Care Plan I have confirmed that the patient's Advanced Care Plan is present, code status is documented, or surrogate decision maker is listed in patient medical record.: Yes Medication Reconciliation I have utilized all available resources to obtain, update and review the patients current medications (includes all prescriptions, OTC, herbals, cannabis, and nutritional supplements).: Yes
[2024-08-12] MEDS: IPRATROPIUM 0.5 MG/ALBUTEROL SULFATE 2.5 MG AMPUL.NEB 3 ML INHALATION (20:25)
--- NOTE | 2024-08-12 20:56 | PCRCNOTE ---
Breathing Tx was unacknowledged and called pharmacy.
--- NOTE | 2024-08-12 21:25 | ADMGEN ---
This patient, Yessenia Wallis, was admitted to IMU Room 210-01. Patient/family oriented to hospital policies and general routines including ID bracelet, bed and alarms, visiting hours, pain management, procedures, bathroom and other care routines, personal items, smoking policy, room service/diet, and visiting hours. Information on how to activate the Rapid Response Team has been discussed. Patient/Family are encouraged to report perceived risks to care and to ask questions if they do not understand what they are told or what they should do.
[2024-08-12] MEDS: SACUBITRIL/VALSARTAN 24-26 MG TABLET 1 TAB PO (21:58)
[2024-08-12] MEDS: APIXABAN 5 MG TABLET PO (21:58)
[2024-08-12] MEDS: GABAPENTIN 300 MG CAPSULE PO (21:58)
--- NOTE | 2024-08-12 22:41 | ECG_ITS ---
Test Date: 2024-08-12 22:50:48 Measurements Intervals [place] Rate: 114 P: 82 CA: 161 QRS: -41 QRSD: 130 T: 76 QT: 347 QTc: 479 Interpretive Statements SINUS TACHYCARDIA POSSIBLE LEFT ATRIAL ENLARGEMENT [-0.1mV P WAVE IN V1/V2] MARKED LEFT AXIS DEVIATION [QRS AXIS < -30] INCOMPLETE LEFT BUNDLE BRANCH BLOCK Compared to ECG 08/12/2024 15:09:02 NO SIGNIFICANT CHANGES Electronically Signed On 08-13-2024 14:03:05 CDT by Kayli Doe M.D.
[2024-08-12] MEDS: METOPROLOL TARTRATE INJ 5 MG/5 ML VIAL IV PUSH (23:02)
[2024-08-13] VITALS (29 sets, daily range): BP systolic 77–115; BP diastolic 51–67; PULSE 60–159; RESP 18–97; TEMP 36.7–37.4; O2SAT 86–100; BMI 22.3
[2024-08-13] MEDS: HYDROcodone/acetaminophen (*CRX) 5-325 MG TABLET 1 TAB PO ×3 (00:05→20:49)
[2024-08-13 00:30] LABS: Influenza A QL RT-PCR Negative (Negative); Influenza B QL RT-PCR Negative (Negative); SARS-CoV-2 RNA PCR Negative (Negative)
[2024-08-13 01:05] LABS: MRSA (PCR) NOT DETECTED (NOT DETECTE)
[2024-08-13] MEDS: LEVALBUTEROL NEB 1.25 MG/3 ML INHALATION ×4 (03:08→19:58)
[2024-08-13] MEDS: IPRATROPIUM BR 0.02% INH SOLN 0.5 MG/2.5 ML VIAL INHALATION ×4 (03:08→19:58)
[2024-08-13] MEDS: SODIUM CHLORIDE 0.9% IV 1,000 ML 500 ML IV CONT (03:15)
[2024-08-13] MEDS: SODIUM CHLORIDE 0.9% IV 1,000 ML 250 ML IV CONT (05:32)
[2024-08-13 06:22] LABS: Basophils Percent Auto 0.3 % (0.2-1.2); Hematocrit 41.4 % (37.0-47.0); Hemoglobin 13.2 g/dL (12.0-15.0); Immature Granulocyte Absolute 0.01 K/mm3 (0.00-0.031); Immature Granulocyte Percent A 0.3 % (0-0.5); Lymphocytes Absolute Auto 0.52 K/mm3 (0.9-3.2); Lymphocytes Percent Auto 13.2 % (18.3-44.2); Mean Corpuscular HGB Conc 31.9 g/dl (32-36); Mean Corpuscular Hemoglobin 35.4 pg (26-34); Mean Platelet Volume 9.3 fl (7.4-10.4); Monocytes Absolute Auto 0.7 K/mm3 (0.1-0.6); Monocytes Percent Auto 18.8 % (2.6-8.5); Neutrophils Absolute Auto 2.7 K/mm3 (1.3-6.7); Neutrophils Percent Auto 67.4 % (45.5-73.1); Platelet Count Result 165 k/mm3 (150-375); Red Blood Count 3.73 M/mm3 (4.2-5.4); Red Cell Distribution Width 13.7 % (11.5-14.5); White Blood Count 3.9 K/mm3 (4.5-10.0)
[2024-08-13 06:46] LABS: Anion Gap 4 mmol/L (4-12); Blood Urea Nitrogen 11 mg/dL (7-17); Calcium 7.8 mg/dL (8.4-10.2); Carbon Dioxide 33 mmol/L (22-30); Chloride 96 mmol/L (98-107); Estimated CRCL calculation 68 ml/min; Estimated Glomerular Filt Rate > 60; Glucose 94 mg/dL (65-110); Sodium 133 mmol/L (137-145)
[2024-08-13 06:47] LABS: Platelet Estimate Adequate (Adequate)
[2024-08-13 06:48] LABS: Hypochromasia 1+; Macrocytosis 1+ (NORMAL); Schistocytes None Seen
[2024-08-13 06:52] LABS: Magnesium 1.6 mg/dL (1.6-2.3)
[2024-08-13] MEDS: APIXABAN 5 MG TABLET PO ×2 (09:19→20:46)
[2024-08-13] MEDS: LIDOCAINE 5% PATCH 2 PATCH TOPICAL (09:19)
[2024-08-13] MEDS: METOPROLOL SUCCINATE EXT REL 25 MG TABCR PO (09:35)
--- NOTE | 2024-08-13 09:42 | P.CONCA_ITS ---
Assessment and Plan Assessment and plan (1) Paroxysmal atrial fibrillation with rapid ventricular response: Code(s): I48.0 - Paroxysmal atrial fibrillation Status: Acute Plan 1. Paroxysmal atrial fibrillation with RVR 2. Pneumonia 3. Heart failure with improved LVEF (52% per nuclear stress test 11/2023) 4. Non-small cell lung cancer s/p chemoradiation/immunotherapy 5. Hypertension 6. Peripheral neuropathy 7. Anxiety PLAN: -Continue Toprol 25mg once daily. -Given soft blood pressures, will start IV Amiodarone drip for RVR. -Continue Eliquis 5mg BID. -Of note, if patient does need to undergo cardioversion during this hospitalization, it will need to be ANGELA-guided DCCV as patient was required to hold her Eliquis for planned kyphoplasty last week. -Given soft blood pressures, will hold her Entresto for now. Resume when blood pressures improve. -Antibiotic management for pneumonia as per Hospitalist. Anticipate her AFIB will improve as her pneumonia improves. Recommendations and plan discussed with Hospitalist. History of Present Illness History of Present Illness Consult date/time: 08/13/24 09:42 Requesting physician: Rocío Emmanuel DO Consult reason: atrial fibrillation Reason For Visit: CHF, Pneumonia, Acute hypoxic respiratory failure Narrative: Yessenia is a 68 year old female with heart failure with improved LVEF (52% per nuclear stress test 11/2023), paroxysmal atrial fibrillation, non-small cell lung cancer s/p chemoradiation/immunotherapy, hypertension, peripheral neuropathy, anxiety who presented to [facility] for evaluation of shortness of breath. She was supposed to get kyphoplasty done last week, however, had elevated heart rates, so was sent to the ER instead, where she was discharged from a few hours later once she returned to normal sinus. Has developed a productive cough. She is currently admitted for treatment of pneumonia. In the ED, patient noted to have episodes of atrial flutter with RVR. Given IV Metoprolol with improvement. Workup here shows: CT Chest: Atelectasis versus pneumonia seen in the left upper lobe unchanged from previous examination. Underlying mass is not excluded. Focal areas of atelectasis versus pneumonia seen in the right and left lower lobe. Multiple nodules unchanged from previous examination. Underlying emphysematous changes. Compression fractures of T9 and T10 with increased compression and T9 compared to previous study. EKGs with sinus tachycardia, however, telemetry currently shows atrial fibrillation with RVR with heart rates in the 160s. Review of Systems 2 Review of Systems: All systems reviewed & are unremarkable except as noted in HPI and below (HPI) [facility] Past Medical History Medical History Chronic anticoagulation Due to atrial fibrillation Paroxysmal atrial fibrillation 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 Hypertension Surgical History Surgical History History of insertion of tunneled central venous catheter (CVC) with port (04/2020) History of laparoscopy History of hysterectomy (1997) History of tonsillectomy (1965) History of cholecystectomy (1998) Family History Family History Grandparent Lung cancer Mother Breast cancer Small bowel cancer FH: kidney cancer Skin cancer Mother No problems noted. Father Skin cancer Social History Social History Social History: Patient lives at home with her of 50 years. She has 1 son. 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 She used to smoke a some much as 2 packs of cigarettes per day and started smoking around age 19. She cut back significantly on her smoking after cancer diagnosis in 2020. She still smokes 1 or 2 cigarettes a day. She denies any history of alcohol use or illicit substance use. Surrogate medical decision maker: Elliott Wallis, spouse Code status: DNR/DNI Smoking packs per day: 0.5 Smoking cigarettes per day: 10.0 Years smoked: 40 Smoking pack-years: 20.00 Smoking status: Current some day smoker Tobacco type: cigarettes Second hand tobacco smoke exposure: No Additional smoking assessment comments: cutting back since diagnosis Alcohol intake: never Substance use: never Substance use type: does not use Do You Feel Safe in your Home?: Yes Lack of Transportation: No Lack of Food: Never True Current Housing: I Have Housing Concerned About Future Housing: No Difficulty Paying Gas/Electric Bills: No Difficulty Paying for Meds: No Currently Unemployed: No Education: Trade/Vocational Certificate Difficulty w/ Childcare or Family Care: No Living arrangements: with family Spiritual care concerns: No Meds Home Medications and Allergies Home Medications ?Medication ?Instructions ?Recorded ?Confirmed ?Type alprazolam 0.25 mg tablet (Xanax) 0.25 mg PO BID PRN Anxiety 04/30/20 08/12/24 History diphenhydramine HCl 25 mg capsule 25 mg PO HS 10/14/23 08/12/24 History (Benadryl) gabapentin 300 mg capsule 300 mg PO HS 10/14/23 08/12/24 History apixaban 5 mg tablet (Eliquis) 5 mg PO Q12HR #60 tabs 10/18/23 08/12/24 Rx metoprolol succinate 25 mg 25 mg PO QAM #30 tabs 10/18/23 08/12/24 Rx tablet,extended release 24 hr (Toprol XL) fluticasone propionate 50 1 spray intranasal DAILY PRN 06/28/24 08/12/24 History mcg/actuation nasal allergy symptoms spray,suspension ibuprofen 200 mg tablet (Advil) 400 mg PO Q6H PRN fever or pain 06/28/24 08/12/24 History sacubitril 24 mg-valsartan 26 mg 1 tablet PO BID 06/28/24 08/12/24 History tablet (Entresto) sotorasib 320 mg tablet (Lumakras) 960 mg PO QHS 06/28/24 08/12/24 History hydrocodone 5 mg-acetaminophen 325 1 tablet PO BID PRN pain, severe 07/15/24 08/12/24 Rx mg tablet #60 tabs lidocaine 5 % topical patch 2 patch topical DAILY 08/12/24 08/12/24 History Allergies Allergy/AdvReac Type Severity Reaction Status Date / Time pentazocine (From Anjali) Allergy Irritable Verified 08/12/24 14:57 Vital Signs Vital Signs - 24 hr 08/12/24 15:00 08/12/24 15:05 08/12/24 15:11 Temperature 36.7 C Pulse Rate 111 H Respiratory Rate 26 H Blood Pressure 141/100 H Pulse Oximetry 78 L 85 L 96 Oxygen Delivery Room Air Room Air Nasal Cannula Oxygen Flow Rate 2 Fraction of Inspired Oxygen 08/12/24 15:17 08/12/24 19:00 08/12/24 20:27 Temperature Pulse Rate 104 H 103 H 120 H Respiratory Rate 20 16 20 Blood Pressure 152/89 H 147/87 H Pulse Oximetry 94 93 Oxygen Delivery Oxygen Flow Rate Fraction of Inspired Oxygen 08/12/24 20:29 08/12/24 20:46 08/12/24 20:54 Temperature Pulse Rate 124 H 124 H Respiratory Rate 25 H 25 H Blood Pressure 143/85 H 143/85 H Pulse Oximetry 98 97 97 Oxygen Delivery Nasal Cannula Oxygen Flow Rate 4 Fraction of Inspired Oxygen 36 08/12/24 21:17 08/12/24 22:00 08/12/24 23:02 Temperature 36.8 C Pulse Rate 131 H 122 H 151 H Respiratory Rate 22 H Blood Pressure 110/59 L Pulse Oximetry 93 Oxygen Delivery Oxygen Flow Rate Fraction of Inspired Oxygen 08/12/24 23:15 08/13/24 00:00 08/13/24 00:00 Temperature 37.3 C Pulse Rate 159 H 92 92 Respiratory Rate 22 H 22 H Blood Pressure 111/60 Pulse Oximetry 92 92 Oxygen Delivery Nasal Cannula Oxygen Flow Rate 2 Fraction of Inspired Oxygen 08/13/24 00:03 08/13/24 02:00 08/13/24 02:58 Temperature Pulse Rate 159 H 148 H 148 H Respiratory Rate 22 H Blood Pressure Pulse Oximetry 86 L Oxygen Delivery Nasal Cannula Oxygen Flow Rate 2 Fraction of Inspired Oxygen 08/13/24 02:58 08/13/24 02:58 08/13/24 03:10 Temperature Pulse Rate 148 H 147 H 126 H Respiratory Rate 24 H 20 Blood Pressure 88/53 L Pulse Oximetry 86 L Oxygen Delivery Oxygen Flow Rate Fraction of Inspired Oxygen 08/13/24 03:12 08/13/24 03:19 08/13/24 04:00 Temperature Pulse Rate 123 H 147 H 153 H Respiratory Rate 20 20 20 Blood Pressure Pulse Oximetry 90 96 Oxygen Delivery Nasal Cannula Nasal Cannula Oxygen Flow Rate 4 4 Fraction of Inspired Oxygen 36 08/13/24 04:00 08/13/24 04:00 08/13/24 06:00 Temperature 37.4 C Pulse Rate 153 H 153 H 149 H Respiratory Rate 22 H Blood Pressure 115/67 Pulse Oximetry 96 Oxygen Delivery Oxygen Flow Rate Fraction of Inspired Oxygen 08/13/24 08:00 08/13/24 08:23 08/13/24 08:24 Temperature 37.1 C Pulse Rate 152 H 156 H 156 H Respiratory Rate 20 20 20 Blood Pressure 77/51 L Pulse Oximetry 93 94 Oxygen Delivery Nasal Cannula Oxygen Flow Rate 4 Fraction of Inspired Oxygen 36 08/13/24 09:12 Temperature Pulse Rate Respiratory Rate Blood Pressure 95/65 L Pulse Oximetry Oxygen Delivery Oxygen Flow Rate Fraction of Inspired Oxygen Exam 2 Const: General: no acute distress HENMT: Mouth: Yes moist mucous membranes Eyes: General: appearance normal, both eyes and all related structures S clera: sclerae normal Resp: Effort & Inspection: normal respiratory effort Cardio: Rate: tachycardic Rhythm: abnormal rhythm irregularly irregular Heart sounds: no murmurs Skin: General skin exam: normal color Psych: Mental Status: mental status grossly normal Affect: normal affect Results Labs and Meds 08/13/24 06:05 08/13/24 06:05 Lab results: Cardiac Enzymes 08/12/24 Range/Units 15:26 AST 389 H (14-36) U/L CBC 08/12/24 08/13/24 Range/Units 15:26 06:05 WBC 6.3 3.9 L (4.5-10.0) K/mm3 RBC 4.07 L 3.73 L (4.2-5.4) M/mm3 Hgb 14.2 13.2 (12.0-15.0) g/dL Hct 44.8 41.4 (37.0-47.0) % Plt Count 168 165 (150-375) k/mm3 Lymph # (Auto) Not Reportable 0.52 L [place] # (Auto) Not Reportable 0.7 H Eos # (Auto) Not Reportable 0.0 Baso # (Auto) Not Reportable 0.0 Comprehensive Metabolic Panel 08/12/24 08/13/24 Range/Units 15:26 06:05 Sodium 133 L 133 L (137-145) mmol/L Potassium 4.0 4.0 (3.4-5.0) mmol/L Chloride 98 96 L (98-107) mmol/L Carbon Dioxide 27 33 H (22-30) mmol/L BUN 10 D 11 (7-17) mg/dL Creatinine 0.54 L 0.68 L (0.7-1.0) mg/dL Glucose 136 H 94 (65-110) mg/dL Calcium 8.4 7.8 L (8.4-10.2) mg/dL AST 389 H (14-36) U/L ALT 20 (6-35) U/L Alkaline Phosphatase 92 (38-126) U/L Total Protein 6.0 L (6.3-8.2) g/dL Albumin 3.4 L (3.5-5.1) g/dL Intake and Output 08/12/24 08/13/24 08/13/24 23:59 07:59 15:59 Intake Total 716 080 5187 Balance 658 415 5205 Intake: IV 300 1000 Sodium Chloride 0.9% IV 1,000 1000 ml @ 250 mls/hr IV CONT .Q4H ONE Rx#:[id number] Azithromycin 500 mg/Ns 250 ml 250 500 mg In 250 ml @ 250 mls/hr IVPB ONCE ONE Rx#:[id number] cefTRIAXone 1 GM/NS 50 ML 1 gm 50 In 50 ml @ 100 mls/hr IVPB ONCE ONE Rx#:[id number] Oral 200 480 Other: # Unmeasured Voids 1 Patient Weight 08/13/24 23:59 Weight 66.5 kg
[2024-08-13] MEDS: AMIODARONE 150 MG/D5W 100 ML 150 MG/100 ML BAG 600 MG IV CONT (10:26)
[2024-08-13] MEDS: AMIODARONE 360 MG/D5W 200 ML 360 MG/200 ML BAG 33.33 MG IV CONT (10:27)
--- NOTE | 2024-08-13 12:45 | P.PNIM_ITS ---
Progress Note: A&P Assessment and Plan (1) Pneumonia: Qualifiers: Laterality: bilateral Lung location: unspecified part of lung Pneumonia type: due to unspecified organism Qualified Code(s): J18.9 - Pneumonia, unspecified organism Code(s): J18.9 - Pneumonia, unspecified organism Status: Acute Assessment and Plan: * CXR: Bilateral pneumonia versus pulmonary edema * started on CAP tx: azithromycin & ceftriaxone * Viral PCR: negative for Flu/COVID/RSV * Pending legionella, mycoplasma and pneumococcal * Nasal MRSA negative * Supplemental O2 requirement: 4L NC, wean as appropriate * supportive treatment (2) Acute hypoxic on chronic hypercapnic respiratory failure: Code(s): J96.01 - Acute respiratory failure with hypoxia; J96.12 - Chronic respiratory failure with hypercapnia Status: Acute Assessment and Plan: * Symptoms: Shortness of breath * SpO2: 94% * Oxygen supplementation: 4 L nasal cannula * Suspected cause: Pneumonia * ABG: PH 7.355, pCO2 48.3, PO2 53.6, HC03 26.4, O2 saturation 86.2, oxyhemoglobin 85 * EKG: Sinus tachycardia, possible left atrial enlargement, left bundle branch block * Chest XR: Bilateral pneumonia versus pulmonary edema * Chest CTA: Atelectasis versus pneumonia in left upper lobe, focal areas of atelectasis versus pneumonia in right and left lower lobe. Multiple nodules unchanged from previous examination, underlying emphysematous changes (3) CHF (congestive heart failure): Qualifiers: Heart failure type: biventricular Qualified Code(s): I50.82 - Biventricular heart failure Code(s): I50.9 - Heart failure, unspecified Status: Acute Assessment and Plan: * Symptoms: Shortness of breath * BNP: 2930 * EKG: Sinus tachycardia, possible left atrial enlargement, left bundle branch block * Chest XR: Bilateral pneumonia versus pulmonary edema * Echo: Pending at this time * Monitor vital signs, I&Os, BUN/creatinine, daily weights, neuro status and patient is a fall risk * Monitor serum electrolytes, Keep serum Potassium>4 and serum Magnesium>2 and CBC * Cardiology consulted, appreciate recommendations (4) Paroxysmal atrial fibrillation with rapid ventricular response: Code(s): I48.0 - Paroxysmal atrial fibrillation Status: Acute Assessment and Plan: * Keep serum potassium >4 and keep magnesium >2 * Consult Cardiology for further management, appreciate assistance and recommendations * Amiodarone drip, titrate as needed per protocol * Heparin initated * Echocardiogram ordered * Start Xarelto on discharge * Continue Toprol 25 mg daily and Eliquis 5 mg b.i.d. 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 (6) Non-small cell lung cancer: Onset Date: 02/2020 Qualifiers: Laterality: unspecified laterality Qualified Code(s): C34.90 - Malignant neoplasm of unspecified part of unspecified bronchus or lung Code(s): C34.90 - Malignant neoplasm of unspecified part of unspecified bronchus or lung Status: Acute Assessment and Plan: * On immunotherapy * Imaging shows unchanged nodules and mass Time Spent With Patient Time: Subjective Date/time seen: 08/13/24 12:45 Interval history: 68-year-old female with a past medical history of dilated cardiomyopathy resulting in biventricular congestive heart failure with EF of 20-25%, paroxysmal atrial fibrillation/flutter, non-small cell lung cancer status post chemo, radiation and immunotherapy, HTN, peripheral neuropathy and anxiety who presents to the ER with SOB. 08/13/2024 Patient sitting comfortably in bed at time of examination. Reports her breat nakia has improved greatly since admission. Seen by Cardiology this morning who placed patient on amiodarone IV drip due to patient being in AFib with RVR. Her rate now in the 80s. Denies any shortness of breath, chest pain, dizziness, nausea/vomiting or abdominal pain at this time. Still has a productive cough.Will continue IV antibiotics with O2 supplementation, with the hope of weaning down supplementation over the next few days. Echocardiogram pending at this time. Cardiology following. Legionella pneumophila and pneumococcal antigen pending. Otherwise patient endorses significant improvement in overall symptoms and has no complaints at this time. Review of Systems Review of Systems: 12 systems were reviewed with pertinent positives and negatives per HPI. Except as documented in the HPI, all other systems were reviewed and are negative. Exam Narrative: Weight 66.5 kg BMI 22.3 Const: Other: Mildly ill-appearing but otherwise No overt distress, well-developed well- nourished HENMT: Other: Mucous membranes are dry, no oral pharyngeal erythema Eyes: Other: No scleral icterus, no conjunctival pallor Neck: Other: No JVD, no lymphadenopathy Resp: Other: Wheezing in anterior lung [place]der[place], coarse crackles at bilateral base Cardio: Other: Mildly tachycardic, 2+ bilateral radial pedal pulses, no JVD GI: Other: Soft, nontender, nondistended, positive bowel sounds Back/Spine/Pelvis: Other: Marked thoracic kyphosis Skin: Other: No pallor, non jaundice Neuro: Other: Alert orient x4, speech is clear, no facial asymmetry, no localizing neurologic deficits noted during the course of conversation Extrem: Other: No clubbing, cyanosis or edema Psych: Other: Appropriate mood and affect, pleasant and cooperative, judgment and insight intact Objective Data Vital Signs Vital Signs: Vital Signs - 24 hr 08/12/24 15:00 08/12/24 15:05 08/12/24 15:11 Temperature 98.0 F Pulse Rate 111 H Respiratory Rate 26 H Blood Pressure 141/100 H Pulse Oximetry 78 L 85 L 96 Oxygen Delivery Room Air Room Air Nasal Cannula Oxygen Flow Rate 2 Fraction of Inspired Oxygen 08/12/24 15:17 08/12/24 19:00 08/12/24 20:27 Temperature Pulse Rate 104 H 103 H 120 H Respiratory Rate 20 16 20 Blood Pressure 152/89 H 147/87 H Pulse Oximetry 94 93 Oxygen Delivery Oxygen Flow Rate Fraction of Inspired Oxygen 08/12/24 20:29 08/12/24 20:46 08/12/24 20:54 Temperature Pulse Rate 124 H 124 H Respiratory Rate 25 H 25 H Blood Pressure 143/85 H 143/85 H Pulse Oximetry 98 97 97 Oxygen Delivery Nasal Cannula Oxygen Flow Rate 4 Fraction of Inspired Oxygen 36 08/12/24 21:17 08/12/24 22:00 08/12/24 23:02 Temperature 98.3 F Pulse Rate 131 H 122 H 151 H Respiratory Rate 22 H Blood Pressure 110/59 L Pulse Oximetry 93 Oxygen Delivery Oxygen Flow Rate Fraction of Inspired Oxygen 08/12/24 23:15 08/13/24 00:00 08/13/24 00:00 Temperature 99.2 F Pulse Rate 159 H 92 92 Respiratory Rate 22 H 22 H Blood Pressure 111/60 Pulse Oximetry 92 92 Oxygen Delivery Nasal Cannula Oxygen Flow Rate 2 Fraction of Inspired Oxygen 08/13/24 00:03 08/13/24 02:00 08/13/24 02:58 Temperature Pulse Rate 159 H 148 H 148 H Respiratory Rate 22 H Blood Pressure Pulse Oximetry 86 L Oxygen Delivery Nasal Cannula Oxygen Flow Rate 2 Fraction of Inspired Oxygen 08/13/24 02:58 08/13/24 02:58 08/13/24 03:10 Temperature Pulse Rate 148 H 147 H 126 H Respiratory Rate 24 H 20 Blood Pressure 88/53 L Pulse Oximetry 86 L Oxygen Delivery Oxygen Flow Rate Fraction of Inspired Oxygen 08/13/24 03:12 08/13/24 03:19 08/13/24 04:00 Temperature Pulse Rate 123 H 147 H 153 H Respiratory Rate 20 20 20 Blood Pressure Pulse Oximetry 90 96 Oxygen Delivery Nasal Cannula Nasal Cannula Oxygen Flow Rate 4 4 Fraction of Inspired Oxygen 36 08/13/24 04:00 08/13/24 04:00 08/13/24 06:00 Temperature 99.3 F Pulse Rate 153 H 153 H 149 H Respiratory Rate 22 H Blood Pressure 115/67 Pulse Oximetry 96 Oxygen Delivery Oxygen Flow Rate Fraction of Inspired Oxygen 08/13/24 08:00 08/13/24 08:00 08/13/24 08:00 Temperature 98.8 F Pulse Rate 152 H 156 H Respiratory Rate 20 Blood Pressure 77/51 L Pulse Oximetry 93 96 Oxygen Delivery Nasal Cannula Oxygen Flow Rate 4 Fraction of Inspired Oxygen 08/13/24 08:23 08/13/24 08:24 08/13/24 09:12 Temperature Pulse Rate 156 H 156 H Respiratory Rate 20 20 Blood Pressure 95/65 L Pulse Oximetry 94 Oxygen Delivery Nasal Cannula Oxygen Flow Rate 4 Fraction of Inspired Oxygen 36 08/13/24 10:00 08/13/24 10:26 08/13/24 10:27 Temperature Pulse Rate 86 155 H 155 H Respiratory Rate Blood Pressure 95/65 L 95/65 L Pulse Oximetry Oxygen Delivery Oxygen Flow Rate Fraction of Inspired Oxygen 08/13/24 12:00 08/13/24 12:00 08/13/24 12:13 Temperature 98.1 F Pulse Rate 84 82 Respiratory Rate 20 Blood Pressure 85/55 L Pulse Oximetry 94 94 Oxygen Delivery Nasal Cannula Oxygen Flow Rate 4 Fraction of Inspired Oxygen Intake/Output Intake/Output: Intake & Output 08/10/24 08/11/24 08/12/24 08/13/24 23:59 23:59 23:59 23:59 Intake Total 300 1680 Balance 300 1680 Meds/Results Medications: Active Medications Generic Name Dose Route Start Last Admin Trade Name Freq PRN Reason Stop Dose Admin Acetaminophen 650 mg 08/12/24 19:52 Acetaminophen 325 Mg Tablet PO Q4H PRN Mild Pain (1-3) or Fever Hydrocodone Bitart/Acetaminophen 1 tab 08/12/24 20:35 08/13/24 06:14 Hydrocodone/Acetaminophen (*Crx) 5-325 Mg Tablet PO 1 tab Q6H PRN Administration Pain 7-10 Alprazolam 0.25 mg 08/12/24 20:35 Alprazolam (*Crx) 0.25 Mg Tablet PO BID PRN Anxiety Apixaban 5 mg 08/12/24 21:00 08/13/24 09:19 Apixaban 5 Mg Tablet PO 5 mg Q12HR BRANT Administration Diphenhydramine HCl 25 mg 08/13/24 21:00 Diphenhydramine Hcl Cap 25 Mg Capsule PO HS BRANT Fluticasone Propionate 1 spray 08/13/24 01:57 Fluticasone Propionate 0.05% Na Spr 16 Gm Btl (*Bkc) NASAL DAILY PRN allergy symptoms Gabapentin 300 mg 08/12/24 21:00 08/12/24 21:58 Gabapentin 300 Mg Capsule PO 300 mg HS BRANT Administration Heparin Sodium (Beef Lung) 50 units 08/13/24 09:00 08/13/24 09:17 Heparin Flush 50 Units/5 Ml Syringe IV PUSH Not Given QAM [facility] Heparin Sodium (Beef Lung) 50 units 08/13/24 07:42 Heparin Flush 50 Units/5 Ml Syringe IV PUSH PRN PRN after intermittent infusion Heparin Sodium (Beef Lung) 50 units 08/13/24 07:42 Heparin Flush 50 Units/5 Ml Syringe IV PUSH PRN PRN after blood draws Heparin Sodium (Porcine) 500 units 08/13/24 07:42 Heparin Sodium Lock Flush 500 Units/5 Ml Syringe IV PUSH PRN PRN see comments below Ceftriaxone Sodium 1 gm in 50 mls @ 100 mls/hr 08/13/24 20:00 Rocephin 1 Gm/Ns 50 Ml IVPB Q24H BRANT Azithromycin 500 mg in 250 mls @ 250 mls/hr 08/13/24 20:00 Zithromax IVPB Q24H BRANT Amiodarone HCl/Dextrose 360 mg in 200 mls @ 33.333 mls/hr 08/13/24 09:32 08/13/24 10:27 Nexterone 360 Mg/D5w 200 Ml IV CONT 08/13/24 15:31 1 mg/min .Q6H ONE 33.33 mls/hr Administration 1 MG/MIN Amiodarone HCl/Dextrose 360 mg in 200 mls @ 16.667 mls/hr 08/13/24 15:32 Nexterone 360 Mg/D5w 200 Ml IV CONT .Q12H BRANT 0.5 MG/MIN Ibuprofen 400 mg 08/13/24 01:57 Ibuprofen 400 Mg Tablet PO Q8H PRN Pain 4-6 or fever Ipratropium [place] 0.5 mg 08/13/24 02:00 08/13/24 08:21 Ipratropium Br 0.02% Inh Soln 0.5 Mg/2.5 Ml Vial INHALATION 0.5 mg Q6HRT BRANT Administration Levalbuterol HCl 1.25 mg 08/13/24 02:00 08/13/24 08:22 Levalbuterol Neb 1.25 Mg/3 Ml INHALATION 1.25 mg Q6HRT BRANT Administration Lidocaine 2 patch 08/13/24 09:00 08/13/24 09:19 Lidocaine 5% Patch TOPICAL 2 patch DAILY BRANT Administration Metoprolol Succinate 25 mg 08/13/24 09:00 08/13/24 09:35 Metoprolol Succinate Ext Rel 25 Mg Tabcr PO 25 mg QAM BRANT Administration Miscellaneous Information 1 each 08/13/24 00:01 Please Send Trangnina To Pharmacy For Verification When Available XX 09/12/24 00:00 CLARIFY BRANT Non-Formulary Medication 960 mg 08/12/24 21:00 Sotorasib [Lumakras] PO 09/11/24 20:59 QHS BRANT Sacubitril/Valsartan 1 tab 08/12/24 21:00 08/13/24 10:27 Sacubitril/Valsartan 24-26 Mg Tablet PO Not Given Q12HR BRANT Sodium Chloride 10 ml 08/13/24 14:00 Central Line Flush IV PUSH Q8HR BRANT Radiology Results: ITS Impressions Chest X-Ray 08/12/24 15:32 IMPRESSION: Bilateral pneumonia versus pulmonary edema. Chest CT 08/12/24 21:25 IMPRESSION: 1. Atelectasis versus pneumonia seen in the left upper lobe unchanged from pre vious examination. Underlying mass is not excluded. 2. Focal areas of atelectasis versus pneumonia seen in the right and left lower lobe. 3. Multiple nodules unchanged from previous examination. 4. Underlying emphysematous changes. 5. Compression fractures of T9 and T10 with increased compression and T9 compared to previous study. Chest CTA 08/13/24 11:23 IMPRESSION: 1. No pulmonary embolism. 2. Moderate emphysema. 3. Mass in the posterior lingula consistent with treated lung cancer. 4. Increasing tree-in-bud opacities in the lingula and bilateral lower lobes bladder with small regions of dependent consolidation consistent with worsening pneumonia. 5. Small bilateral pleural effusions. Labs Labs: Laboratory Results - last 24 hr 08/12/24 08/12/24 08/12/24 15:26 18:19 18:35 WBC 6.3 RBC 4.07 L Hgb 14.2 Hct 44.8 MCV 110.1 H MCH 34.9 H MCHC 31.7 L RDW 13.6 Plt Count 168 MPV 9.0 Immature Gran % (Auto) Not Reportable Neut % (Auto) Not Reportable Lymph % (Auto) Not Reportable [place] % (Auto) Not Reportable Eos % (Auto) Not Reportable Baso % (Auto) Not Reportable Lymph # (Auto) Not Reportable [place] # (Auto) Not Reportable Eos # (Auto) Not Reportable Baso # (Auto) Not Reportable Abs Immat Gran (auto) Not Reportable Absolute Neuts (auto) Not Reportable Absolute Nucleated RBC Not Reportable Total Counted 100 Neutrophils % (Manual) 72 Band Neutrophils % 11 H Lymphocytes % (Manual) 7.0 L Monocytes % (Manual) 10 H Nucleated RBC % Not Reportable Abs Neuts (Manual) 5.22 Abs Lymphs (Manual) 0.44 L Abs Monocytes (Manual) 0.63 Platelet Estimate Adequate Hypochromasia 1+ Anisocytosis 1+ Macrocytosis 1+ Schistocytes None seen Puncture Site Right brachial ABG pH 7.355 ABG pCO2 48.3 H ABG pO2 53.6 L ABG PO2/FiO2 Ratio 1.91 ABG HCO3 26.4 H ABG O2 Saturation 86.2 L* ABG O2 Content 17.5 ABG Base Excess 0.2 A-a Gradient 89.0 Oxyhemoglobin 85.0 L* Total Hemoglobin 14.7 O2 Delivery Device Nasal cannula O2 Liters/Min 2.0 FiO2 28 Sodium 133 L Potassium 4.0 Chloride 98 Carbon Dioxide 27 Anion Gap 8 BUN 10 D Creatinine 0.54 L Estim Creat Clear Calc 83 Estimated GFR > 60 Glucose 136 H Lactic Acid 0.9 Calcium 8.4 Magnesium Total Bilirubin 0.6 AST 389 H ALT 20 Alkaline Phosphatase 92 NT-Pro-B Natriuret Pep 2930 H Total Protein 6.0 L Albumin 3.4 L Nasal MRSA (PCR) Influenza A (RT-PCR) Influenza B (RT-PCR) SARS-CoV-2 RNA (RT-PCR) 08/12/24 08/13/24 08/13/24 23:43 06:05 06:05 WBC 3.9 L RBC 3.73 L Hgb 13.2 Hct 41.4 MCV 111.0 H MCH 35.4 H MCHC 31.9 L RDW 13.7 Plt Count 165 MPV 9.3 Immature Gran % (Auto) 0.3 Neut % (Auto) 67.4 Lymph % (Auto) 13.2 L [place] % (Auto) 18.8 H Eos % (Auto) 0.0 Baso % (Auto) 0.3 Lymph # (Auto) 0.52 L [place] # (Auto) 0.7 H Eos # (Auto) 0.0 Baso # (Auto) 0.0 Abs Immat Gran (auto) 0.01 Absolute Neuts (auto) 2.7 Absolute Nucleated RBC 0.000 Total Counted Neutrophils % (Manual) Band Neutrophils % Not Reportable Lymphocytes % (Manual) Monocytes % (Manual) Nucleated RBC % 0.0 Abs Neuts (Manual) Abs Lymphs (Manual) Abs Monocytes (Manual) Platelet Estimate Adequate Hypochromasia 1+ Anisocytosis Macrocytosis 1+ Schistocytes None seen Puncture Site ABG pH ABG pCO2 ABG pO2 ABG PO2/FiO2 Ratio ABG HCO3 ABG O2 Saturation ABG O2 Content ABG Base Excess A-a Gradient Oxyhemoglobin Total Hemoglobin O2 Delivery Device O2 Liters/Min FiO2 Sodium 133 L Potassium 4.0 Chloride 96 L Carbon Dioxide 33 H Anion Gap 4 BUN 11 Creatinine 0.68 L Estim Creat Clear Calc 68 Estimated GFR > 60 Glucose 94 Lactic Acid Calcium 7.8 L Magnesium 1.6 Cancelled Total Bilirubin AST ALT Alkaline Phosphatase NT-Pro-B Natriuret Pep Total Protein Albumin Nasal MRSA (PCR) Not detected Influenza A (RT-PCR) Negative Influenza B (RT-PCR) Negative SARS-CoV-2 RNA (RT-PCR) Negative Quality VTE Prophylaxis VTE prophylaxis: pharmacologic ordered (Continue home Eliquis.)
[2024-08-13] MEDS: IBUPROFEN 400 MG TABLET PO (12:55)
[2024-08-13] MEDS: SODIUM CHLORIDE 0.9% IV 1,000 ML 200 ML IV CONT (16:23)
[2024-08-13] MEDS: CENTRAL LINE FLUSH 10 ML IV PUSH ×2 (16:28→21:00)
[2024-08-13] MEDS: AMIODARONE 360 MG/D5W 200 ML 360 MG/200 ML BAG 16.67 MG IV CONT (16:28)
[2024-08-13] MEDS: GABAPENTIN 300 MG CAPSULE PO (20:46)
[2024-08-13] MEDS: diphenhydrAMINE HCl CAP 25 MG CAPSULE PO (20:46)
[2024-08-13] MEDS: AZITHROMYCIN 500 MG/NS 250 ML 500 MG/250 ML BAG 250 MG IVPB (20:51)
[2024-08-14] VITALS (24 sets, daily range): BP systolic 98–124; BP diastolic 54–76; PULSE 64–86; RESP 16–22; TEMP 36.4–37.2; O2SAT 92–97
--- NOTE | 2024-08-14 | ECHO_ITS ---
Patient Info Name: Yessenia Wallis Age: 68 years : 1955 Gender: Female Ht: 68 in Wt: 146 lbs BSA: 1.78 m2 HR: 90 bpm BP: 98 / 58 mmHg Technical Quality: Good Exam Date: 08/14/2024 7:54 AM Patient Status: I Admit Date: 08/13/2024 Exam Type: CA echo doppler color flow Complete two-dimensional, color flow and Doppler transthoracic echocardiogram is performed. Staff Referring Physician: Rocío Emmanuel DO Tracer Lathe Set Up Operator: Mariya Ruiz Attending Provider: Rocío Emmanuel DO Summary 1. Left ventricular chamber dimension is normal. 2. Left ventricular systolic function is normal, estimated at 50-55. 3. The left ventricular diastolic function is grade I diastolic dysfunction. 4. Right ventricular systolic function is normal. 5. There is mild to moderate mitral valve regurgitation. 6. There is mild tricuspid valve regurgitation. 7. There is trivial pericardial effusion. Left Ventricle Left ventricular chamber dimension is normal. Left ventricular systolic function is normal, estimated at 50-55. There is no increased left ventricular wall thickness. The left ventricular diastolic function is grade I diastolic dysfunction. Right Ventricle Right ventricular chamber dimension is normal. Right ventricular systolic function is normal. Left Atria Left atrial chamber dimension is normal. Right Atria Right atrial chamber dimension is normal. Atrial Septum Intact interatrial septum visualized by color flow imaging. Aortic Valve The aortic valve is probable trileaflet. There is no aortic valve stenosis. Pulmonic Valve The pulmonic valve is not well visualized. There is trace pulmonic regurgitation. Mitral Valve There is mild to moderate mitral valve regurgitation. Tricuspid Valve There is mild tricuspid valve regurgitation. Pericardium/Pleural There is trivial pericardial effusion. Inferior Vena Cava Normal inferior vena cava with >50% collapse upon inspiration consistent with normal right atrial pressure, 3 mmHg. Aorta The aortic root size at the sinus of Valsalva is normal. Left Ventricular Outflow Tract Name Value Normal LVOT 2D LVOT Diameter 1.9 cm LVOT Doppler LVOT Peak Velocity 170 cm/s LVOT Peak Gradient 12 mmHg LVOT Mean Gradient 7 mmHg LVOT VTI 32 cm LVOT VTI/AV VTI Ratio 0.8 LVOT Stroke Volume 92 ml LVOT CO 7.1 l/min LVOT CI 4.0 l/min/m2 Mitral Valve Name Value Normal MV Regurgitation Doppler MR Peak Gradient 86 mmHg MV Diastolic Function MV E Peak Velocity 102 cm/s MV A Peak Velocity 127 cm/s MV E/A 0.8 MV Decel Time (PW) 205 ms MV Annular TDI MV E/e' (Septal) 14.7 MV E/e' (Lateral) 10.6 MV E/e' (Average) 12.7 Tricuspid Valve Name Value Normal TV Regurgitation Doppler TR Peak Velocity 438 cm/s TR Peak Gradient 77 mmHg Estimated PAP/RSVP RA Pressure 3 mmHg <=5 PA Systolic Pressure 80 mmHg <36 RV Systolic Pressure 80 mmHg <36 TV Annular TDI TV Lateral Gabi s' Velocity 15.9 cm/s >=9.5 Aortic Valve Name Value Normal AV Doppler AV Peak Velocity 203 cm/s AV Peak Gradient 16 mmHg AV Mean Gradient 11 mmHg AV VTI 38 cm AV Area (Cont Eq VTI) 2.4 cm2 >=3.0 AV Area (Cont Eq [place]) 2.4 cm2 AV DI (Zenon) 0.84 AV Regurgitation 2D LVOT Area 2.9 cm2 Ventricles Name Value Normal LV Dimensions 2D/MM IVS Diastolic Thickness (2D) 1.0 cm 0.6-1.0 LVID Diastole (2D) 4.4 cm 3.8-5.2 LVIW Diastolic Thickness (2D) 0.9 cm 0.6-0.9 LVID Systole (2D) 3.3 cm 2.2-3.5 LVOT Diameter 1.9 cm LV Mass (2D Cubed) 141.76 g 67.00-162.00 LV Mass Index (2D Cubed) 79 g/m2 43-95 Relative Wall Thickness (2D) 0.42 <=0.42 LV Fractional Shortening/Ejection Fraction 2D/MM LV Fractional Shortening (2D) 26 % 27-45 LV EF (2D Teichholz) 51 % LV Diastolic Volume (4C MOD) 93 ml LV EF (4C MOD) 53 % LV Diastolic Volume (2C MOD) 125 ml LV EF (2C MOD) 67 % LV Diastolic Volume (BP MOD) 112 ml 46-106 LV Diastolic Volume Index (BP MOD) 63 ml/m2 29-61 LV Systolic Volume (BP MOD) 44 ml 14-42 LV Systolic Volume Index (BP MOD) 25 ml/m2 8-24 LV EF (BP MOD) 61 % 54-74 LV Diastolic Length (4C) 8.7 cm LV Systolic Length (4C) 6.7 cm LV Stroke Volume (4C MOD) 49 ml Atria Name Value Normal LA Dimensions LA Volume (4C A-L) 33 ml LA Volume (BP A-L) 40 ml RA Dimensions RA Systolic Major [place] Length (4C) 4.6 cm 2.2-2.8 RA Area (4C) 14.3 cm2 <=18.0 Report Signatures
[2024-08-14] MEDS: LEVALBUTEROL NEB 1.25 MG/3 ML INHALATION ×4 (01:40→20:35)
[2024-08-14] MEDS: IPRATROPIUM BR 0.02% INH SOLN 0.5 MG/2.5 ML VIAL INHALATION ×4 (01:40→20:35)
[2024-08-14] MEDS: AMIODARONE 360 MG/D5W 200 ML 360 MG/200 ML BAG 16.67 MG IV CONT (04:57)
[2024-08-14] MEDS: HYDROcodone/acetaminophen (*CRX) 5-325 MG TABLET 1 TAB PO ×3 (05:08→21:22)
[2024-08-14] MEDS: CENTRAL LINE FLUSH 10 ML IV PUSH ×3 (05:44→21:24)
--- NOTE | 2024-08-14 09:04 | PM.PNCARD ---
Progress Note: A&P Assessment and Plan (1) Paroxysmal atrial fibrillation with rapid ventricular response: Code(s): I48.0 - Paroxysmal atrial fibrillation Status: Acute Plan 1. Paroxysmal atrial fibrillation with RVR 2. Pneumonia 3. Heart failure with improved LVEF (52% per nuclear stress test 11/2023) 4. Non-small cell lung cancer s/p chemoradiation/immunotherapy 5. Hypertension 6. Peripheral neuropathy 7. Anxiety PLAN: -Continue Toprol 25mg once daily. -Given soft blood pressures, started IV Amiodarone drip. Has now converted to sinus rhythm. Will stop IV Amiodarone drip and start PO Amiodarone 200mg once daily. Please continue PO Amiodarone 200mg once daily upon discharge. -Continue Eliquis 5mg BID. -Given soft blood pressures, hold her Entresto for now. Resume when blood pressures improve. -Antibiotic management for pneumonia as per Hospitalist. Cardiology will sign off at this time, please call us back if needed. Will arrange follow up visit in the office. Recommendations and plan discussed with Hospitalist. Subjective Date/time seen: 08/14/24 09:04 Interval history: Reason for visit: Atrial fibrillation with RVR HPI: Yessenia is a 68 year old female with heart failure with improved LVEF (52% per nuclear stress test 11/2023), paroxysmal atrial fibrillation, non-small cell lung cancer s/p chemoradiation/immunotherapy, hypertension, peripheral neuropathy, anxiety who presented to [place] for evaluation of shortness of breath. She was supposed to get kyphoplasty done last week, however, had elevated heart rates, so was sent to the ER instead, where she was discharged from a few hours later once she returned to normal sinus. Has developed a productive cough. She is currently admitted for treatment of pneumonia. In the ED, patient noted to have episodes of atrial flutter with RVR. Given IV Metoprolol with improvement. Workup here shows: CT Chest: Atelectasis versus pneumonia seen in the left upper lobe unchanged from previous examination. Underlying mass is not excluded. Focal areas of atelectasis versus pneumonia seen in the right and left lower lobe. Multiple nodules unchanged from previous examination. Underlying emphysematous changes. Compression fractures of T9 and T10 with increased compression and T9 compared to previous study. EKGs with sinus tachycardia, however, telemetry currently shows atrial fibrillation with RVR with heart rates in the 160s. Date of service 08/14: Feeling better today. Converted to sinus yesterday. Review of Systems Cardiovascular: Cardiovascular: Reports as per HPI Exam Const: General: comfortable and no acute distress HENMT: Mouth: Yes moist mucous membranes Eyes: General: appearance normal, both eyes and all related structures Sclera: sclerae normal Resp: Effort & Inspection: normal respiratory effort Cardio: Rate: regular rate Rhythm: regular rhythm Skin: General skin exam: normal color Neuro: Speech: normal speech Psych: Mental Status: mental status grossly normal Affect: normal affect Objective Data Vital Signs Vital Signs: Vital Signs - 24 hr 08/13/24 09:12 08/13/24 10:00 08/13/24 10:26 Temperature Pulse Rate 86 155 H Respiratory Rate Blood Pressure 95/65 L 95/65 L Pulse Oximetry Oxygen Delivery Oxygen Flow Rate Fraction of Inspired Oxygen 08/13/24 10:27 08/13/24 12:00 08/13/24 12:00 Temperature Pulse Rate 155 H 84 Respiratory Rate Blood Pressure 95/65 L Pulse Oximetry 94 Oxygen Delivery Nasal Cannula Oxygen Flow Rate 4 Fraction of Inspired Oxygen 08/13/24 12:00 08/13/24 12:13 08/13/24 14:00 Temperature 36.7 C Pulse Rate 82 82 72 Respiratory Rate 20 Blood Pressure 85/55 L 85/55 L 109/64 Pulse Oximetry 94 Oxygen Delivery Oxygen Flow Rate Fraction of Inspired Oxygen 08/13/24 14:00 08/13/24 14:00 08/13/24 14:05 Temperature 36.8 C Pulse Rate 74 81 78 Respiratory Rate 22 H 20 Blood Pressure 109/64 Pulse Oximetry 98 Oxygen Delivery Oxygen Flow Rate Fraction of Inspired Oxygen 08/13/24 16:00 08/13/24 16:00 08/13/24 16:00 Temperature 36.9 C Pulse Rate 69 74 Respiratory Rate 21 H Blood Pressure 90/57 L 90/57 L Pulse Oximetry 90 94 Oxygen Delivery Nasal Cannula Oxygen Flow Rate 4 Fraction of Inspired Oxygen 08/13/24 16:00 08/13/24 16:28 08/13/24 18:00 Temperature Pulse Rate 71 73 73 Respiratory Rate Blood Pressure 90/57 L Pulse Oximetry Oxygen Delivery Oxygen Flow Rate Fraction of Inspired Oxygen 08/13/24 18:00 08/13/24 18:00 08/13/24 20:00 Temperature 36.7 C Pulse Rate 72 72 60 Respiratory Rate 20 97 H Blood Pressure 102/54 L 102/54 L Pulse Oximetry 100 Oxygen Delivery Oxygen Flow Rate Fraction of Inspired Oxygen 08/13/24 20:00 08/13/24 20:00 08/13/24 20:00 Temperature 36.8 C Pulse Rate 67 82 Respiratory Rate 18 Blood Pressure 115/64 115/64 Pulse Oximetry 98 97 Oxygen Delivery Nasal Cannula Oxygen Flow Rate 4 Fraction of Inspired Oxygen 08/13/24 20:00 08/13/24 20:01 08/13/24 20:35 Temperature Pulse Rate 69 72 67 Respiratory Rate 20 97 H Blood Pressure Pulse Oximetry 97 Oxygen Delivery Nasal Cannula Oxygen Flow Rate 2 Fraction of Inspired Oxygen 08/13/24 22:00 08/13/24 22:00 08/13/24 22:00 Temperature Pulse Rate 77 77 65 Respiratory Rate Blood Pressure 112/60 112/60 Pulse Oximetry Oxygen Delivery Oxygen Flow Rate Fraction of Inspired Oxygen 08/13/24 23:50 08/14/24 00:00 08/14/24 00:00 Temperature Pulse Rate 65 65 65 Respiratory Rate Blood Pressure 102/58 L Pulse Oximetry 97 Oxygen Delivery Nasal Cannula Oxygen Flow Rate 4 Fraction of Inspired Oxygen 08/14/24 00:00 08/14/24 01:41 08/14/24 01:50 Temperature 36.4 C Pulse Rate 65 65 70 Respiratory Rate 17 20 Blood Pressure 102/58 L Pulse Oximetry 96 Oxygen Delivery Oxygen Flow Rate Fraction of Inspired Oxygen 08/14/24 02:00 08/14/24 02:00 08/14/24 02:00 Temperature Pulse Rate 67 68 Respiratory Rate Blood Pressure 102/58 L Pulse Oximetry Oxygen Delivery Oxygen Flow Rate Fraction of Inspired Oxygen 08/14/24 03:31 08/14/24 04:00 08/14/24 04:00 Temperature 36.4 C Pulse Rate 68 71 81 Respiratory Rate 16 Blood Pressure 99/54 L Pulse Oximetry 96 97 Oxygen Delivery Nasal Cannula Oxygen Flow Rate 4 Fraction of Inspired Oxygen 08/14/24 04:29 08/14/24 04:57 08/14/24 05:05 Temperature Pulse Rate 83 80 78 Respiratory Rate Blood Pressure Pulse Oximetry Oxygen Delivery Oxygen Flow Rate Fraction of Inspired Oxygen 08/14/24 06:00 08/14/24 06:00 08/14/24 06:03 Temperature Pulse Rate 74 74 Respiratory Rate Blood Pressure 98/58 L 98/58 L Pulse Oximetry Oxygen Delivery Oxygen Flow Rate Fraction of Inspired Oxygen Intake/Output Intake/Output: Intake & Output 08/11/24 08/12/24 08/13/24 08/14/24 23:59 23:59 23:59 23:59 Intake Total 300 2917.3 126.1 Output Total 1150 Balance 300 2917.3 -1023.9 Meds/Results Medications: Active Medications Generic Name Dose Route Start Last Admin Trade Name Freq PRN Reason Stop Dose Admin Acetaminophen 650 mg 08/12/24 19:52 Acetaminophen 325 Mg Tablet PO Q4H PRN Mild Pain (1-3) or Fever Hydrocodone Bitart/Acetaminophen 1 tab 08/12/24 20:35 08/14/24 05:08 Hydrocodone/Acetaminophen (*Crx) 5-325 Mg Tablet PO 1 tab Q6H PRN Administration Pain 7-10 Alprazolam 0.25 mg 08/12/24 20:35 Alprazolam (*Crx) 0.25 Mg Tablet PO BID PRN Anxiety Apixaban 5 mg 08/12/24 21:00 08/13/24 20:46 Apixaban 5 Mg Tablet PO 5 mg Q12HR BRANT Administration Diphenhydramine HCl 25 mg 08/13/24 21:00 08/13/24 20:46 Diphenhydramine Hcl Cap 25 Mg Capsule PO 25 mg HS BRANT Administration Fluticasone Propionate 1 spray 08/13/24 01:57 Fluticasone Propionate 0.05% Na Spr 16 Gm Btl (*Bkc) NASAL DAILY PRN allergy symptoms Gabapentin 300 mg 08/12/24 21:00 08/13/24 20:46 Gabapentin 300 Mg Capsule PO 300 mg HS BRANT Administration Heparin Sodium (Beef Lung) 50 units 08/13/24 09:00 08/13/24 09:17 Heparin Flush 50 Units/5 Ml Syringe IV PUSH Not Given QAM BRANT Heparin Sodium (Beef Lung) 50 units 08/13/24 07:42 Heparin Flush 50 Units/5 Ml Syringe IV PUSH PRN PRN after intermittent infusion Heparin Sodium (Beef Lung) 50 units 08/13/24 07:42 Heparin Flush 50 Units/5 Ml Syringe IV PUSH PRN PRN after blood draws Heparin Sodium (Porcine) 500 units 08/13/24 07:42 Heparin Sodium Lock Flush 500 Units/5 Ml Syringe IV PUSH PRN PRN see comments below Ceftriaxone Sodium 1 gm in 50 mls @ 100 mls/hr 08/13/24 20:00 08/13/24 22:17 Rocephin 1 Gm/Ns 50 Ml IVPB 100 mls/hr Q24H BRANT Administration Azithromycin 500 mg in 250 mls @ 250 mls/hr 08/13/24 20:00 08/13/24 20:51 Zithromax IVPB 250 mls/hr Q24H BRANT Administration Ibuprofen 400 mg 08/13/24 01:57 08/13/24 12:55 Ibuprofen 400 Mg Tablet PO 400 mg Q8H PRN Administration Pain 4-6 or fever Ipratropium [place] 0.5 mg 08/13/24 02:00 08/14/24 09:04 Ipratropium Br 0.02% Inh Soln 0.5 Mg/2.5 Ml Vial INHALATION 0.5 mg Q6HRT BRANT Administration Levalbuterol HCl 1.25 mg 08/13/24 02:00 08/14/24 09:03 Levalbuterol Neb 1.25 Mg/3 Ml INHALATION 1.25 mg Q6HRT BRANT Administration Lidocaine 2 patch 08/13/24 09:00 08/13/24 09:19 Lidocaine 5% Patch TOPICAL 2 patch DAILY BRANT Administration Metoprolol Succinate 25 mg 08/13/24 09:00 08/13/24 09:35 Metoprolol Succinate Ext Rel 25 Mg Tabcr PO 25 mg QAM BRANT Administration Miscellaneous Information 1 each 08/13/24 00:01 08/14/24 01:05 Please Send Lumeliazarras To Pharmacy For Verification When Available XX 09/12/24 00:00 Not Given CLARIFY BRANT Non-Formulary Medication 960 mg 08/12/24 21:00 Sotorasib [Lumakras] PO 09/11/24 20:59 QHS BRANT Perflutren Lipid Microsphere 0 ml 08/13/24 14:38 Perflutren Lipid Microspheres 1.5 Ml Vial Diluted To 10 Ml Total Volume IV PUSH 08/16/24 14:38 ONCE PRN adequate visualization Protocol Sacubitril/Valsartan 1 tab 08/12/24 21:00 08/13/24 10:27 Sacubitril/Valsartan 24-26 Mg Tablet PO Not Given Q12HR BRANT Sodium Chloride 10 ml 08/13/24 14:00 08/14/24 05:44 Central Line Flush IV PUSH 10 ml Q8HR BRANT Administration Radiology Results: ITS Impressions Chest X-Ray 08/12/24 15:32 IMPRESSION: Bilateral pneumonia versus pulmonary edema. Chest CT 08/12/24 21:25 IMPRESSION: 1. Atelectasis versus pneumonia seen in the left upper lobe unchanged from previous examination. Underlying mass is not excluded. 2. Focal areas of atelectasis versus pneumonia seen in the right and left lower lobe. 3. Multiple nodules unchanged from previous examination. 4. Underlying emphysematous changes. 5. Compression fractures of T9 and T10 with increased compression and T9 compared to previous study. Chest CTA 08/13/24 11:23 IMPRESSION: 1. No pulmonary embolism. 2. Moderate emphysema. 3. Mass in the posterior lingula consistent with treated lung cancer. 4. Increasing tree-in-bud opacities in the lingula and bilateral lower lobes bladder with small regions of dependent consolidation consistent with worsening pneumonia. 5. Small bilateral pleural effusions.
[2024-08-14] MEDS: AMIODARONE HCL 200 MG TABLET PO (10:18)
[2024-08-14] MEDS: APIXABAN 5 MG TABLET PO ×2 (10:18→21:22)
[2024-08-14] MEDS: METOPROLOL SUCCINATE EXT REL 25 MG TABCR PO (10:18)
[2024-08-14] MEDS: LIDOCAINE 5% PATCH 2 PATCH TOPICAL (10:18)
--- NOTE | 2024-08-14 10:47 | PHAR ---
Home medication Lumakras 320mg tablets identified and returned to IMU nursing unit
--- NOTE | 2024-08-14 18:34 | PM.IMPN ---
Progress Note: A&P Assessment and Plan (1) Acute hypoxic on chronic hypercapnic respiratory failure: Code(s): J96.01 - Acute respiratory failure with hypoxia; J96.12 - Chronic respiratory failure with hypercapnia Status: Acute (2) CHF (congestive heart failure): Qualifiers: Heart failure type: biventricular Qualified Code(s): I50.82 - Biventricular heart failure Code(s): I50.9 - Heart failure, unspecified Status: Acute (3) Chronic anticoagulation: Code(s): Z79.01 - watermaster (current) use of anticoagulants Status: Acute (4) Non-small cell lung cancer: Onset Date: 02/2020 Qualifiers: Laterality: unspecified laterality Qualified Code(s): C34.90 - Malignant neoplasm of unspecified part of unspecified bronchus or lung Code(s): C34.90 - Malignant neoplasm of unspecified part of unspecified bronchus or lung Status: Acute Assessment and Plan: On immunotherapy (5) Pneumonia: Qualifiers: Laterality: bilateral Lung location: unspecified part of lung Pneumonia type: due to unspecified organism Qualified Code(s): J18.9 - Pneumonia, unspecified organism Code(s): J18.9 - Pneumonia, unspecified organism Status: Acute Plan The patient has acute hypoxic respiratory failure due to pneumonia. Patient been placed on empiric antibiotic therapy with Rocephin and azithromycin. Blood cultures have been obtained and are pending. Will obtain urine Legionella pneumococcal antigen studies. Will wean oxygen as tolerated. Patient appear to have some mild hypercapnic respiratory failure at baseline. No evidence of acute exacerbation but the patient is actively wheezing. Will add scheduled nebulizer treatment to help with pulmonary toilet. Will send sputum for Gram stain and culture. Patient does have a history of dilated cardiomyopathy the with systolic dysfunction however her EF is significantly improved compared to initial diagnosis re if is 52%. The patient had received Lasix in the ER but the patient actually appears intervascular volume depleted and mucous membranes are dry.The patient is having intermittent bouts of tachycardia. I suspect underlying episodes of atrial flutter. Although there may be some component of sinus tachycardia underlying due to sepsis and volume depletion. I did give the patient 1 dose of IV Lopressor with improvement in her heart rate. Several hours later she she did develop hypotension. Given that she appeared intervascular volume depleted in the setting tachycardia hypotension a 1 L fluid bolus was given over 2 hours. The patient did have significant improvement in her blood pressures. Her tuscarora CC more consistent with sinus tachycardia at that time and given her good response fluids an additional 1 Liter over 4 hours. Will monitor strict I&O's and re-evaluate fluid status. The patient has had 1.4 L of urine output since arrival to the IMU. If she still appears volume depleted she may benefit from 1 more L. the patient is established with Dr. Peraza and I feel the patient would benefit from evaluation given that she has had also been having these episodes of tachycardia prior to her kyphoplasty last week. The hospitalist group pad requested a CTA of the chest to rule out pulmonary embolism from the ER but test was ordered in the ER. The patient is on chronic anticoagulation with Eliquis but she did have her Eliquis held for possible procedure. I do not really want to expose patient to more radiation but the risks of a missed PE much higher than the risks of radiation exposure. Will order CTA of the chest with PE protocol. Patient could still have come some component of CHF exacerbation better clinical picture seems more consistent with infectious process. Although her bandemia could very well be due to her antineoplastic medication. Will repeat CBC and electrolyte panel in a.m.. patient with history of cardiomyopathy with EF or 20-25% presented with Atrial fib with RVR, with RVR was intially treated with amiodarone drip and converted to NSR and service technician started the patient on metoprolol. Also patient his of non-small cell lung cancer s/p chemoradiation/immunotherapy is found to have pneumonia and being treated with ceftriaxone and Zithromax, patient stats feel better compared to when she came in, will continue to monitor and have PT/OT evaluate the patient. Subjective Date/time seen: 08/14/24 18:34 Interval history: 68-year-old female with a past medical history of dilated cardiomyopathy resulting in biventricular congestive heart failure with EF of 20-25%, paroxysmal atrial fibrillation/flutter, non-small cell lung cancer status post chemo, radiation and immunotherapy, HTN, peripheral neuropathy and anxiety who presents to the ER with SOB. 08/13/2024 Patient sitting comfortably in bed at time of examination. Reports her breathing has improved greatly since admission. Seen by Cardiology this morning who placed patient on amiodarone IV drip due to patient being in AFib with RVR. Her rate now in the 80s. Denies any shortness of breath, chest pain, dizziness, nausea/vomiting or abdominal pain at this time. Still has a productive cough.Will continue IV antibiotics with O2 supplementation, with the hope of weaning down supplementation over the next few days. Echocardiogram pending at this time. Cardiology following. Legionella pneumophila and pneumococcal antigen pending. Otherwise patient endorses significant improvement in overall symptoms and has no complaints at this time. patient with history of cardiomyopathy with EF or 20-25% presented with Atrial fib with RVR, with RVR was intially treated with amiodarone drip and converted to NSR and service technician started the patient on metoprolol. Also patient his of non-small cell lung cancer s/p chemoradiation/immunotherapy is found to have pneumonia and being treated with ceftriaxone and Zithromax, patient stats feel better compared to when she came in, will continue to monitor and have PT/OT evaluate the patient. Review of Systems Review of Systems: 12 systems were reviewed with pertinent positives and negatives per HPI. Except as documented in the HPI, all other systems were reviewed and are negative. Objective Data Vital Signs Vital Signs: Vital Signs - 24 hr 08/13/24 20:00 08/13/24 20:00 08/13/24 20:00 Temperature 36.8 C Pulse Rate 60 67 82 Respiratory Rate 97 H 18 Blood Pressure 115/64 115/64 Pulse Oximetry 98 Oxygen Delivery Oxygen Flow Rate Fraction of Inspired Oxygen 08/13/24 20:00 08/13/24 20:00 08/13/24 20:01 Temperature Pulse Rate 69 72 Respiratory Rate 20 Blood Pressure Pulse Oximetry 97 97 Oxygen Delivery Nasal Cannula Nasal Cannula Oxygen Flow Rate 4 2 Fraction of Inspired Oxygen 08/13/24 20:35 08/13/24 22:00 08/13/24 22:00 Temperature Pulse Rate 67 77 77 Respiratory Rate 97 H Blood Pressure 112/60 112/60 Pulse Oximetry Oxygen Delivery Oxygen Flow Rate Fraction of Inspired Oxygen 08/13/24 22:00 08/13/24 23:50 08/14/24 00:00 Temperature Pulse Rate 65 65 65 Respiratory Rate Blood Pressure 102/58 L Pulse Oximetry 97 Oxygen Delivery Nasal Cannula Oxygen Flow Rate 4 Fraction of Inspired Oxygen 08/14/24 00:00 08/14/24 00:00 08/14/24 01:41 Temperature 36.4 C Pulse Rate 65 65 65 Respiratory Rate 17 20 Blood Pressure 102/58 L Pulse Oximetry 96 Oxygen Delivery Oxygen Flow Rate Fraction of Inspired Oxygen 08/14/24 01:50 08/14/24 02:00 08/14/24 02:00 Temperature Pulse Rate 70 67 68 Respiratory Rate Blood Pressure Pulse Oximetry Oxygen Delivery Oxygen Flow Rate Fraction of Inspired Oxygen 08/14/24 02:00 08/14/24 03:31 08/14/24 04:00 Temperature Pulse Rate 68 71 Respiratory Rate Blood Pressure 102/58 L Pulse Oximetry 96 Oxygen Delivery Nasal Cannula Oxygen Flow Rate 4 Fraction of Inspired Oxygen 08/14/24 04:00 08/14/24 04:29 08/14/24 04:57 Temperature 36.4 C Pulse Rate 81 83 80 Respiratory Rate 16 Blood Pressure 99/54 L Pulse Oximetry 97 Oxygen Delivery Oxygen Flow Rate Fraction of Inspired Oxygen 08/14/24 05:05 08/14/24 06:00 08/14/24 06:00 Temperature Pulse Rate 78 74 Respiratory Rate Blood Pressure 98/58 L Pulse Oximetry Oxygen Delivery Oxygen Flow Rate Fraction of Inspired Oxygen 08/14/24 06:03 08/14/24 08:00 08/14/24 08:00 Temperature 36.6 C Pulse Rate 74 85 Respiratory Rate 20 Blood Pressure 98/58 L 115/76 Pulse Oximetry 97 94 Oxygen Delivery Nasal Cannula Oxygen Flow Rate 4 Fraction of Inspired Oxygen 08/14/24 08:00 08/14/24 08:00 08/14/24 09:04 Temperature Pulse Rate 64 85 Respiratory Rate Blood Pressure 115/76 Pulse Oximetry 94 Oxygen Delivery Nasal Cannula Oxygen Flow Rate 2 Fraction of Inspired Oxygen 08/14/24 09:04 08/14/24 09:25 08/14/24 10:00 Temperature Pulse Rate 77 85 80 Respiratory Rate 18 18 Blood Pressure 123/68 Pulse Oximetry Oxygen Delivery Oxygen Flow Rate Fraction of Inspired Oxygen 08/14/24 10:00 08/14/24 10:00 08/14/24 11:15 Temperature Pulse Rate 78 80 82 Respiratory Rate Blood Pressure 123/68 123/68 Pulse Oximetry Oxygen Delivery Oxygen Flow Rate Fraction of Inspired Oxygen 08/14/24 12:00 08/14/24 12:00 08/14/24 15:14 Temperature 37.1 C Pulse Rate 78 84 85 Respiratory Rate 18 18 Blood Pressure 124/60 Pulse Oximetry 94 Oxygen Delivery Oxygen Flow Rate Fraction of Inspired Oxygen 08/14/24 15:41 08/14/24 16:00 08/14/24 16:00 Temperature 36.9 C Pulse Rate 86 78 81 Respiratory Rate 18 22 H Blood Pressure 99/55 L Pulse Oximetry 92 Oxygen Delivery Oxygen Flow Rate Fraction of Inspired Oxygen Intake/Output Intake/Output: Intake & Output 08/11/24 08/12/24 08/13/24 08/14/24 23:59 23:59 23:59 23:59 Intake Total 300 2917.3 1972.7 Output Total 2150 Balance 300 2917.3 -177.3 Meds/Results Medications: Active Medications Generic Name Dose Route Start Last Admin Trade Name Freq PRN Reason Stop Dose Admin Acetaminophen 650 mg 08/12/24 19:52 Acetaminophen 325 Mg Tablet PO Q4H PRN Mild Pain (1-3) or Fever Hydrocodone Bitart/Acetaminophen 1 tab 08/12/24 20:35 08/14/24 14:52 Hydrocodone/Acetaminophen (*Crx) 5-325 Mg Tablet PO 1 tab Q6H PRN Administration Pain 7-10 Alprazolam 0.25 mg 08/12/24 20:35 Alprazolam (*Crx) 0.25 Mg Tablet PO BID PRN Anxiety Amiodarone HCl 200 mg 08/14/24 09:05 08/14/24 10:18 Amiodarone Hcl 200 Mg Tablet PO 200 mg DAILY@0800 BRANT Administration Apixaban 5 mg 08/12/24 21:00 08/14/24 10:18 Apixaban 5 Mg Tablet PO 5 mg Q12HR BRANT Administration Diphenhydramine HCl 25 mg 08/13/24 21:00 08/13/24 20:46 Diphenhydramine Hcl Cap 25 Mg Capsule PO 25 mg HS BRANT Administration Fluticasone Propionate 1 spray 08/13/24 01:57 Fluticasone Propionate 0.05% Na Spr 16 Gm Btl (*Bkc) NASAL DAILY PRN allergy symptoms Gabapentin 300 mg 08/12/24 21:00 08/13/24 20:46 Gabapentin 300 Mg Capsule PO 300 mg HS BRANT Administration Heparin Sodium (Beef Lung) 50 units 08/13/24 09:00 08/14/24 14:50 Heparin Flush 50 Units/5 Ml Syringe IV PUSH Not Given QAM BRANT Heparin Sodium (Beef Lung) 50 units 08/13/24 07:42 Heparin Flush 50 Units/5 Ml Syringe IV PUSH PRN PRN after intermittent infusion Heparin Sodium (Beef Lung) 50 units 08/13/24 07:42 Heparin Flush 50 Units/5 Ml Syringe IV PUSH PRN PRN after blood draws Heparin Sodium (Porcine) 500 units 08/13/24 07:42 Heparin Sodium Lock Flush 500 Units/5 Ml Syringe IV PUSH PRN PRN see comments below Ceftriaxone Sodium 1 gm in 50 mls @ 100 mls/hr 08/13/24 20:00 08/13/24 22:17 Rocephin 1 Gm/Ns 50 Ml IVPB 100 mls/hr Q24H BRANT Administration Azithromycin 500 mg in 250 mls @ 250 mls/hr 08/13/24 20:00 08/13/24 20:51 Zithromax IVPB 250 mls/hr Q24H BRANT Administration Ibuprofen 400 mg 08/13/24 01:57 08/13/24 12:55 Ibuprofen 400 Mg Tablet PO 400 mg Q8H PRN Administration Pain 4-6 or fever Ipratropium [place] 0.5 mg 08/13/24 02:00 08/14/24 15:13 Ipratropium Br 0.02% Inh Soln 0.5 Mg/2.5 Ml Vial INHALATION 0.5 mg Q6HRT BRANT Administration Levalbuterol HCl 1.25 mg 08/13/24 02:00 08/14/24 15:13 Levalbuterol Neb 1.25 Mg/3 Ml INHALATION 1.25 mg Q6HRT BRANT Administration Lidocaine 2 patch 08/13/24 09:00 08/14/24 10:18 Lidocaine 5% Patch TOPICAL 2 patch DAILY BRANT Administration Metoprolol Succinate 25 mg 08/13/24 09:00 08/14/24 10:18 Metoprolol Succinate Ext Rel 25 Mg Tabcr PO 25 mg QAM BRANT Administration Sotorasib [Lumakras] 960 mg 08/14/24 21:00 320 Mg Tablet *Use PO 09/13/24 20:59 Home Supply* QHS BRANT Perflutren Lipid Microsphere 0 ml 08/13/24 14:38 Perflutren Lipid Microspheres 1.5 Ml Vial Diluted To 10 Ml Total Volume IV PUSH 08/16/24 14:38 ONCE PRN adequate visualization Protocol Sacubitril/Valsartan 1 tab 08/12/24 21:00 08/13/24 10:27 Sacubitril/Valsartan 24-26 Mg Tablet PO Not Given Q12HR BRANT Sodium Chloride 10 ml 08/13/24 14:00 08/14/24 14:53 Central Line Flush IV PUSH 10 ml Q8HR BRANT Administration Radiology Results: ITS Impressions Chest X-Ray 08/12/24 15:32 IMPRESSION: Bilateral pneumonia versus pulmonary edema. Chest CT 08/12/24 21:25 IMPRESSION: 1. Atelectasis versus pneumonia seen in the left upper lobe unchanged from previous examination. Underlying mass is not excluded. 2. Focal areas of atelectasis versus pneumonia seen in the right and left lower lobe. 3. Multiple nodules unchanged from previous examination. 4. Underlying emphysematous changes. 5. Compression fractures of T9 and T10 with increased compression and T9 compared to previous study. Chest CTA 08/13/24 11:23 IMPRESSION: 1. No pulmonary embolism. 2. Moderate emphysema. 3. Mass in the posterior lingula consistent with treated lung cancer. 4. Increasing tree-in-bud opacities in the lingula and bilateral lower lobes bladder with small regions of dependent consolidation consistent with worsening pneumonia. 5. Small bilateral pleural effusions. Quality VTE Prophylaxis VTE prophylaxis: pharmacologic ordered (Continue home Eliquis.)
--- NOTE | 2024-08-14 19:22 | PC.NURSE ---
1900 pt arrived from IMU in hospital bed. pt belongings at bedside appears comfortable
[2024-08-14] MEDS: GABAPENTIN 300 MG CAPSULE PO (21:22)
[2024-08-14] MEDS: ALPRAZolam (*CRX) 0.25 MG TABLET PO (21:22)
[2024-08-14] MEDS: diphenhydrAMINE HCl CAP 25 MG CAPSULE PO (21:22)
[2024-08-14] MEDS: AZITHROMYCIN 500 MG/NS 250 ML 500 MG/250 ML BAG 250 MG IVPB (21:23)
[2024-08-14] MEDS: [UNRECOGNIZED DRUG - OTHER] 960 EACH PO (21:23)
[2024-08-15] VITALS (22 sets, daily range): BP systolic 110–123; BP diastolic 56–66; PULSE 69–96; RESP 16–20; TEMP 36.6–37; O2SAT 88–96
[2024-08-15] MEDS: IPRATROPIUM BR 0.02% INH SOLN 0.5 MG/2.5 ML VIAL INHALATION ×4 (02:58→22:04)
[2024-08-15] MEDS: LEVALBUTEROL NEB 1.25 MG/3 ML INHALATION ×4 (02:58→22:04)
--- NOTE | 2024-08-15 03:09 | PCRCNOTE ---
Found pt. on room air after using the restroom, Spo2 was 88%. Nasal cannula applied at 1 LPM and Spo2 increased to 90% and bronchodilator neb treatment given. RN was notified.
[2024-08-15] MEDS: HYDROcodone/acetaminophen (*CRX) 5-325 MG TABLET 1 TAB PO ×3 (05:03→20:05)
[2024-08-15] MEDS: CENTRAL LINE FLUSH 10 ML IV PUSH ×3 (05:05→20:49)
[2024-08-15] MEDS: LIDOCAINE 5% PATCH 2 PATCH TOPICAL (08:05)
[2024-08-15] MEDS: APIXABAN 5 MG TABLET PO ×2 (08:05→20:05)
[2024-08-15] MEDS: METOPROLOL SUCCINATE EXT REL 25 MG TABCR PO (08:05)
[2024-08-15] MEDS: AMIODARONE HCL 200 MG TABLET PO (08:05)
[2024-08-15] MEDS: MAGNESIUM OXIDE 400 MG TABLET PO (11:49)
--- NOTE | 2024-08-15 14:03 | PM.IMPN ---
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 Status: Acute (4) Non-small cell lung cancer: Onset Date: 02/2020 Qualifiers: Laterality: unspecified laterality Qualified Code(s): C34.90 - Malignant neoplasm of unspecified part of unspecified bronchus or lung Code(s): C34.90 - Malignant neoplasm of unspecified part of unspecified bronchus or lung Status: Acute Assessment and Plan: On immunotherapy (5) Pneumonia: Qualifiers: Laterality: bilateral Lung location: unspecified part of lung Pneumonia type: due to unspecified organism Qualified Code(s): J18.9 - Pneumonia, unspecified organism Code(s): J18.9 - Pneumonia, unspecified organism Status: Acute Plan The patient has acute hypoxic respiratory failure due to pneumonia. Patient been placed on empiric antibiotic therapy with Rocephin and azithromycin. Blood cultures have been obtained and are pending. Will obtain urine Legionella pneumococcal antigen studies. Will wean oxygen as tolerated. Patient appear to have some mild hypercapnic respiratory failure at baseline. No evidence of acute exacerbation but the patient is actively wheezing. Will add scheduled nebulizer treatment to help with pulmonary toilet. Will send sputum for Gram stain and culture. Patient does have a history of dilated cardiomyopathy the with systolic dysfunction however her EF is significantly improved compared to initial diagnosis re if is 52%. The patient had received Lasix in the ER but the patient actually appears intervascular volume depleted and mucous membranes are dry.The patient is having intermittent bouts of tachycardia. I suspect underlying episodes of atrial flutter. Although there may be some component of sinus tachycardia underlying due to sepsis and volume depletion. I did give the patient 1 dose of IV Lopressor with improvement in her heart rate. Several hours later she she did develop hypotension. Given that she appeared intervascular volume depleted in the setting tachycardia hypotension a 1 L fluid bolus was given over 2 hours. The patient did have significant improvement in her blood pressures. Her [place] CC more consistent with sinus tachycardia at that time and given her good response fluids an additional 1 Liter over 4 hours. Will monitor strict I&O's and re-evaluate fluid status. The patient has had 1.4 L of urine output since arrival to the IMU. If she still appears volume depleted she may benefit from 1 more L. the patient is established with Dr. Peraza and I feel the patient would benefit from evaluation given that she has had also been having these episodes of tachycardia prior to her kyphoplasty last week. The hospitalist group pad requested a CTA of the chest to rule out pulmonary embolism from the ER but test was ordered in the ER. The patient is on chronic anticoagulation with Eliquis but she did have her Eliquis held for possible procedure. I do not really want to expose patient to more radiation but the risks of a missed PE much higher than the risks of radiation exposure. Will order CTA of the chest with PE protocol. Patient could still have come some component of CHF exacerbation better clinical picture seems more consistent with infectious process. Although her bandemia could very well be due to her antineoplastic medication. Will repeat CBC and electrolyte panel in a.m.. patient with history of cardiomyopathy with EF or 20-25% presented with Atrial fib with RVR, with RVR was intially treated with amiodarone drip and converted to NSR and assistant produce manager started the patient on metoprolol. Also patient his of non-small cell lung cancer s/p chemoradiation/immunotherapy is found to have pneumonia and being treated with ceftriaxone and Zithromax, today patient stats feel better compared to when she came in, will continue to monitor and repeat CXR tomorrow, have PT/OT evaluate the patient. Subjective Date/time seen: 08/15/24 14:03 Interval history: 68-year-old female with a past medical history of dilated cardiomyopathy resulting in biventricular congestive heart failure with EF of 20-25%, paroxysmal atrial fibrillation/flutter, non-small cell lung cancer status post chemo, radiation and immunotherapy, HTN, peripheral neuropathy and anxiety who presents to the ER with SOB. 08/13/2024 Patient sitting comfortably in bed at time of examination. Reports her breathing has improved greatly since admission. Seen by Cardiology this morning who placed patient on amiodarone IV drip due to patient being in AFib with RVR. Her rate now in the 80s. Denies any shortness of breath, chest pain, dizziness, nausea/vomiting or abdominal pain at this time. Still has a productive cough.Will continue IV antibiotics with O2 supplementation, with the hope of weaning down supplementation over the next few days. Echocardiogram pending at this time. Cardiology following. Legionella pneumophila and pneumococcal antigen pending. Otherwise patient endorses significant improvement in overall symptoms and has no complaints at this time. patient with history of cardiomyopathy with EF or 20-25% presented with Atrial fib with RVR, with RVR was intially treated with amiodarone drip and converted to NSR and assistant produce manager started the patient on metoprolol. Also patient his of non-small cell lung cancer s/p chemoradiation/immunotherapy is found to have pneumonia and being treated with ceftriaxone and Zithromax, today patient stats feel better compared to when she came in, will continue to monitor and repeat CXR tomorrow, have PT/OT evaluate the patient. Review of Systems Review of Systems: 12 systems were reviewed with pertinent positives and negatives per HPI. Except as documented in the HPI, all other systems were reviewed and are negative. Objective Data Vital Signs Vital Signs: Vital Signs - 24 hr 08/14/24 15:14 08/14/24 15:41 08/14/24 16:00 Temperature 36.9 C Pulse Rate 85 86 78 Respiratory Rate 18 18 22 H Blood Pressure 99/55 L Pulse Oximetry 92 Oxygen Delivery Oxygen Flow Rate Fraction of Inspired Oxygen 08/14/24 16:00 08/14/24 20:00 08/14/24 20:00 Temperature 37.2 C Pulse Rate 81 71 Respiratory Rate 18 Blood Pressure 115/59 L Pulse Oximetry 93 93 Oxygen Delivery Nasal Cannula Oxygen Flow Rate 1 Fraction of Inspired Oxygen 08/14/24 20:00 08/14/24 20:35 08/14/24 20:35 Temperature Pulse Rate 72 80 80 Respiratory Rate 18 18 Blood Pressure Pulse Oximetry 94 Oxygen Delivery Nasal Cannula Oxygen Flow Rate 1 Fraction of Inspired Oxygen 08/14/24 20:50 08/14/24 23:52 08/15/24 00:00 Temperature 36.9 C Pulse Rate 84 73 72 Respiratory Rate 18 18 Blood Pressure 110/57 L Pulse Oximetry 97 Oxygen Delivery Oxygen Flow Rate Fraction of Inspired Oxygen 08/15/24 02:58 08/15/24 02:58 08/15/24 03:15 Temperature Pulse Rate 85 85 88 Respiratory Rate 20 20 20 Blood Pressure Pulse Oximetry 88 L Oxygen Delivery Room Air Oxygen Flow Rate Fraction of Inspired Oxygen 21 08/15/24 04:00 08/15/24 05:00 08/15/24 07:56 Temperature 37.0 C Pulse Rate 69 86 Respiratory Rate 18 Blood Pressure 110/56 L Pulse Oximetry 91 Oxygen Delivery Nasal Cannula Oxygen Flow Rate 1 Fraction of Inspired Oxygen 08/15/24 07:56 08/15/24 08:00 08/15/24 08:03 Temperature 36.6 C Pulse Rate 81 85 81 Respiratory Rate 20 18 Blood Pressure 114/61 Pulse Oximetry 94 Oxygen Delivery Oxygen Flow Rate Fraction of Inspired Oxygen 08/15/24 08:05 08/15/24 08:05 08/15/24 08:08 Temperature Pulse Rate 85 85 84 Respiratory Rate 20 Blood Pressure Pulse Oximetry Oxygen Delivery Oxygen Flow Rate Fraction of Inspired Oxygen 08/15/24 08:13 08/15/24 12:00 08/15/24 12:02 Temperature 36.7 C Pulse Rate 71 82 Respiratory Rate 18 Blood Pressure 120/62 Pulse Oximetry 94 94 Oxygen Delivery Nasal Cannula Oxygen Flow Rate 1 Fraction of Inspired Oxygen Intake/Output Intake/Output: Intake & Output 08/12/24 08/13/24 08/14/24 08/15/24 23:59 23:59 23:59 23:59 Intake Total 300 3217.3 2572.7 920 Output Total 2150 Balance 300 3217.3 422.7 920 Meds/Results Medications: Active Medications Generic Name Dose Route Start Last Admin Trade Name Freq PRN Reason Stop Dose Admin Acetaminophen 650 mg 08/12/24 19:52 Acetaminophen 325 Mg Tablet PO Q4H PRN Mild Pain (1-3) or Fever Hydrocodone Bitart/Acetaminophen 1 tab 08/12/24 20:35 08/15/24 13:44 Hydrocodone/Acetaminophen (*Crx) 5-325 Mg Tablet PO 1 tab Q6H PRN Administration Pain 7-10 Alprazolam 0.25 mg 08/12/24 20:35 08/14/24 21:22 Alprazolam (*Crx) 0.25 Mg Tablet PO 0.25 mg BID PRN Administration Anxiety Amiodarone HCl 200 mg 08/14/24 09:05 08/15/24 08:05 Amiodarone Hcl 200 Mg Tablet PO 200 mg DAILY@0800 BRANT Administration Apixaban 5 mg 08/12/24 21:00 08/15/24 08:05 Apixaban 5 Mg Tablet PO 5 mg Q12HR BRANT Administration Diphenhydramine HCl 25 mg 08/13/24 21:00 08/14/24 21:22 Diphenhydramine Hcl Cap 25 Mg Capsule PO 25 mg HS BRANT Administration Fluticasone Propionate 1 spray 08/13/24 01:57 Fluticasone Propionate 0.05% Na Spr 16 Gm Btl (*Bkc) NASAL DAILY PRN allergy symptoms Gabapentin 300 mg 08/12/24 21:00 08/14/24 21:22 Gabapentin 300 Mg Capsule PO 300 mg HS BRANT Administration Heparin Sodium (Beef Lung) 50 units 08/13/24 09:00 08/15/24 08:05 Heparin Flush 50 Units/5 Ml Syringe IV PUSH 50 units QAM BRANT Administration Heparin Sodium (Beef Lung) 50 units 08/13/24 07:42 Heparin Flush 50 Units/5 Ml Syringe IV PUSH PRN PRN after intermittent infusion Heparin Sodium (Beef Lung) 50 units 08/13/24 07:42 Heparin Flush 50 Units/5 Ml Syringe IV PUSH PRN PRN after blood draws Heparin Sodium (Porcine) 500 units 08/13/24 07:42 Heparin Sodium Lock Flush 500 Units/5 Ml Syringe IV PUSH PRN PRN see comments below Ceftriaxone Sodium 1 gm in 50 mls @ 100 mls/hr 08/13/24 20:00 08/14/24 21:23 Rocephin 1 Gm/Ns 50 Ml IVPB 100 mls/hr Q24H BRANT Administration Azithromycin 500 mg in 250 mls @ 250 mls/hr 08/13/24 20:00 08/14/24 21:23 Zithromax IVPB 250 mls/hr Q24H BRANT Administration Ibuprofen 400 mg 08/13/24 01:57 08/13/24 12:55 Ibuprofen 400 Mg Tablet PO 400 mg Q8H PRN Administration Pain 4-6 or fever Ipratropium [place] 0.5 mg 08/13/24 02:00 08/15/24 07:52 Ipratropium Br 0.02% Inh Soln 0.5 Mg/2.5 Ml Vial INHALATION 0.5 mg Q6HRT BRANT Administration Levalbuterol HCl 1.25 mg 08/13/24 02:00 08/15/24 07:52 Levalbuterol Neb 1.25 Mg/3 Ml INHALATION 1.25 mg Q6HRT BRANT Administration Lidocaine 2 patch 08/13/24 09:00 08/15/24 08:05 Lidocaine 5% Patch TOPICAL 2 patch DAILY BRANT Administration Magnesium Oxide 400 mg 08/15/24 11:20 08/15/24 11:49 Magnesium Oxide 400 Mg Tablet PO 400 mg QAM BRANT Administration Metoprolol Succinate 25 mg 08/13/24 09:00 08/15/24 08:05 Metoprolol Succinate Ext Rel 25 Mg Tabcr PO 25 mg QAM BRANT Administration Sotorasib [Lumakras] 960 mg 08/14/24 21:00 08/14/24 21:23 320 Mg Tablet *Use PO 09/13/24 20:59 960 mg Home Supply* QHS BRANT Administration Perflutren Lipid Microsphere 0 ml 08/13/24 14:38 Perflutren Lipid Microspheres 1.5 Ml Vial Diluted To 10 Ml Total Volume IV PUSH 08/16/24 14:38 ONCE PRN adequate visualization Protocol Sacubitril/Valsartan 1 tab 08/12/24 21:00 08/13/24 10:27 Sacubitril/Valsartan 24-26 Mg Tablet PO Not Given Q12HR BRANT Sodium Chloride 10 ml 08/13/24 14:00 08/15/24 05:05 Central Line Flush IV PUSH 10 ml Q8HR BRANT Administration Radiology Results: ITS Impressions Chest X-Ray 08/12/24 15:32 IMPRESSION: Bilateral pneumonia versus pulmonary edema. Chest CT 08/12/24 21:25 IMPRESSION: 1. Atelectasis versus pneumonia seen in the left upper lobe unchanged from previous examination. Underlying mass is not excluded. 2. Focal areas of atelectasis versus pneumonia seen in the right and left lower lobe. 3. Multiple nodules unchanged from previous examination. 4. Underlying emphysematous changes. 5. Compression fractures of T9 and T10 with increased compression and T9 compared to previous study. Chest CTA 08/13/24 11:23 IMPRESSION: 1. No pulmonary embolism. 2. Moderate emphysema. 3. Mass in the posterior lingula consistent with treated lung cancer. 4. Increasing tree-in-bud opacities in the lingula and bilateral lower lobes bladder with small regions of dependent consolidation consistent with worsening pneumonia. 5. Small bilateral pleural effusions. Quality VTE Prophylaxis VTE prophylaxis: pharmacologic ordered (Continue home Eliquis.)
[2024-08-15] MEDS: GABAPENTIN 300 MG CAPSULE PO (20:05)
[2024-08-15] MEDS: diphenhydrAMINE HCl CAP 25 MG CAPSULE PO (20:05)
[2024-08-15] MEDS: [UNRECOGNIZED DRUG - OTHER] 960 EACH PO (20:07)
[2024-08-15] MEDS: AZITHROMYCIN 500 MG/NS 250 ML 500 MG/250 ML BAG 250 MG IVPB (20:38)
[2024-08-16] VITALS (18 sets, daily range): BP systolic 110–127; BP diastolic 57–92; PULSE 70–115; RESP 16–22; TEMP 36.7–36.8; O2SAT 91–97
[2024-08-16] MEDS: HYDROcodone/acetaminophen (*CRX) 5-325 MG TABLET 1 TAB PO ×2 (02:30→12:38)
[2024-08-16] MEDS: LEVALBUTEROL NEB 1.25 MG/3 ML INHALATION ×3 (03:07→14:27)
[2024-08-16] MEDS: IPRATROPIUM BR 0.02% INH SOLN 0.5 MG/2.5 ML VIAL INHALATION ×3 (03:07→14:27)
[2024-08-16] MEDS: CENTRAL LINE FLUSH 10 ML IV PUSH ×2 (06:12→12:38)
[2024-08-16] MEDS: METOPROLOL SUCCINATE EXT REL 25 MG TABCR PO (08:28)
[2024-08-16] MEDS: AMIODARONE HCL 200 MG TABLET PO (08:28)
[2024-08-16] MEDS: APIXABAN 5 MG TABLET PO (08:28)
[2024-08-16] MEDS: MAGNESIUM OXIDE 400 MG TABLET PO (08:28)
[2024-08-16] MEDS: LIDOCAINE 5% PATCH 2 PATCH TOPICAL (08:28)
[2024-08-16] MEDS: NICOTINE (*PBKC) 21 MG PATCH 1 PATCH TRANSDERM (08:28)
--- NOTE | 2024-08-16 15:53 | PM.DS ---
DS: Admitting Diagnosis Discharge Date 08/16/2024 Admitting Diagnosis Acute hypoxemia respiratory failure Pneumonia DS: Discharge Diagnosis Discharge Diagnosis (1) CHF (congestive heart failure): Qualifiers: Heart failure type: biventricular Qualified Code(s): I50.82 - Biventricular heart failure Code(s): I50.9 - Heart failure, unspecified Status: Acute (2) Paroxysmal atrial fibrillation with rapid ventricular response: Code(s): I48.0 - Paroxysmal atrial fibrillation Status: Acute (3) Acute heart failure with reduced ejection fraction (HFrEF, <= 40%): Code(s): I50.21 - Acute systolic (congestive) heart failure Status: Acute DS: Summary Hospital Course Reason for hospitalization: Copied from [facility] 08/12/24: 68-year-old female with a past medical history of dilated cardiomyopathy resulting in biventricular congestive heart failure with EF of 20-25%, paroxysmal atrial fibrillation/flutter, non-small cell lung cancer status post chemo, radiation and immunotherapy, essential hypertension, peripheral neuropathy and anxiety who presents to the ER via private vehicle for evaluation of shortness of breath. In triage patient was noted to be satting 70% on room air. Patient does not use supplemental oxygen at baseline. She reports that she developed cough productive of yellow sputum yesterday. She has been having intermittent hot flashes with some episodes of feeling chilled but she reports that she frequently feels chilled at baseline. She denies any recent ill contacts. She denies noticing having any wheezing but on exam was noted to have some anterior wheezes end-expiratory. She reports that when she had her lung biopsy the radiologist told her that she did not have any evidence of emphysema which she is unsure if she has COPD. Does not use inhalers at home. She is still on a oral oncologic medication for her lung cancer. She had to stop Keytruda last year due to Keytruda affecting unintended organ systems. She reports chronic back pain since March of this year. She has known compression fractures of T9-T10. She went to [facility] last week to have a kyphoplasty but the procedure had to be canceled due to rapid heart rate. She had an event monitor placed. She is supposed to follow-up with Dr. Peraza as outpatient she denies any chest pain or palpitations. In the ER patient was noted to have several brief episodes of a flutter RVR. X-ray in the ER demonstrated pulmonary edema versus pneumonia. Patient was initially given a 60 mg IV push of Lasix due to elevated BNP. After arrival to the intermediate unit patient did have more prolonged episodes of a flutter with heart rates in the 140s and 150s. One episode was approximately hour long. A gave order for IV Lopressor 5 mg with improvement in heart rate. Patient was sent for CT scan of the chest without contrast which demonstrated findings more consistent with pneumonia. Patient had a normal white count but had bandemia. She was given doses of Rocephin and azithromycin in the ER for empiric coverage of community-acquired pneumonia. She has a history of dilated cardiomyopathy presumed due to chemotherapeutic agents. Her EF in 2023 was 20-25%. She had a stress test in November of 2023 which demonstrated improved ejection fraction up to 52%. Hospital Course: The patient was admitted for a new oxygen requirement, treated for afib with RVR and pneumonia. Admitted to the IMU on an amiodarone drip. Weaned off oxygen. Previously established with Dr. Peraza and cardiology was consulted during admission. Feeling better and weaned off oxygen. No shortness of breath with activity. Planning to follow-up with PCP. Blood pressure 127 systolic. Restarted Entresto for discharge. She denies dizziness. Otherwise a portable home and will follow up with PCP. Should have PFTs if not done previously. Discussed that she likely has COPD as there was emphysema noted on CT. She denies shortness of breath with activity at home so defer starting daily inhaler such as Spiriva to outpatient provider. Acute Hypoxic respiratory failure Pneumonia Acute respiratory failure likely 2/2 AFib with RVR and possible pneumonia. CT no PE Patient started on empiric antibiotic therapy with Rocephin and azithromycin. 08/14 Urine Legionella ag not detected. Continued xopenex prn Wheezing during admission, continued xopenex prn for discharge Paroxysmal atrial fibrillation with RVR Cardiology was consulted and helped with management of Afib/Flutter. Soft blood pressures so managed with IV Amiodarone drip. Changed to PO Amiodarone 200mg once daily. -Continued Toprol 25mg once daily. -Given soft blood pressures, started IV Amiodarone drip. Has now converted to sinus rhythm. Please continue PO Amiodarone 200mg once daily upon discharge. -Continued Eliquis 5mg BID. -Initially held Entresto and resumed when blood pressures imrpoved. --Cardiology arranging follow up in the office Heart failure with improved LVEF (52% per nuclear stress test 11/2023) Likely a component of CHF 2/2 to tachycardia episode Received lasix in the ED, then fluids with improvement in blood pressures Eliquis held pending evaluation by cardiology then resumed. Non-small cell lung cancer --Continued lumakras Other medical conditions stable during admission Status at Discharge Cognitive/behavioral status at discharge: A&Ox4 Time Spent with Patient Time attestation: Total time spent providing and/or coordinating discharge services:42 minutes Exam Narrative: General - Awake and alert. No acute distress Eyes - PERRLA, EOM intact ENT - No thrush, No erythema Neck - No noticeable or palpable swelling Lymph Nodes - No lymphadenopathy Cardiovascular - RRR no m/r/g, no JVD Lungs: Clear to auscultation, No wheezing, use of accessory muscles, no crackles or wheezes. Skin - Skin warm and dry, no wounds or rashes Abdomen - Normal bowel sounds, abdomen soft and nontender Extremities - No edema, cyanosis or clubbing Musculoskeletal - 5/5 strength, normal range of motion, no swollen or erythematous joints. Neurological ? Alert and oriented x 3, CN 2-12 grossly intact. Psych: Normal mood and affect DS: Data Data Completed and Pending Labs on day of discharge: Labs from last 24 hours 08/14/24 02:33 Urine Pneumococcal Ag Not detected Preliminary micro results at discharge 08/15/24 09:53 Sputum Culture - Preliminary Sputum 08/12/24 18:35 Blood Culture - Preliminary Blood 08/12/24 18:35 Blood Culture - Preliminary Blood Discharge Plan Discharge Attending physician on discharge: Ariela Gallagher Consulting providers: Benjy Valentine; Kayli Doe; Suzette De Leon; Franco Perdomo; Eusebia Villanueva; Hal Mcgee; Calvin Garcia Discharging Clinician: Ariela Gallagher Anticipated Discharge Date/Time: 08/16/24 15:51 Patient Disposition: Home Activity: may shower Diet: as tolerated Wound Care Instructions: follow printed instructions Discharge Instructions: Follow up with your PCP in 1-2 weeks. 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 Discuss starting a daily inhaler with your PCP, could wait for pulmonary function testing. OK to take amiodarone and metoprolol together. Best to take both with meals Labs in a week to check a BMP, and magnesium Patient Instructions: Antibiotic Form, Heart Failure (GEN), Pneumonia (GEN) Patient Language: [place] Island[place] Stand Alone Forms: General Discharge Information Follow-up/Referrals: Melida Ibarra, FORM PRESSER-C [Primary Care Provider] - 1 Week Discharge Medications: New amiodarone [Pacerone] 200 mg Tablet 200 mg PO DAILY@0800 Qty: 30 0RF Continued Entresto 24-26 mg tablet 1 tablet PO BID Lumakras 320 mg tablet 960 mg PO QHS ibuprofen [Advil] 200 mg tablet 400 mg PO Q6H PRN (Reason: fever or pain) alprazolam [Xanax] 0.25 mg Tablet 0.25 mg PO BID PRN (Reason: Anxiety) gabapentin 300 mg Capsule 300 mg PO HS diphenhydramine HCl [Benadryl] 25 mg Capsule 25 mg PO HS Eliquis 5 mg Tablet 5 mg PO Q12HR Qty: 60 1RF metoprolol succinate [Toprol XL] 25 mg Tablet Extended Release 24 Hr 25 mg PO QAM Qty: 30 0RF fluticasone propionate 50 mcg/actuation spray,suspension 1 spray INTRANASAL DAILY PRN (Reason: allergy symptoms) lidocaine 5 % adhesive patch,medicated 2 patch topical DAILY Rx Instructions: leave on most painful area for up to 12 hr on ribs and back No Action oxycodone 5 mg tablet 5 mg PO Q6H PRN Patient Comments: To start after [place] done. Increased [place] freq to TID vs. BID so will run out faster. This was on 08/22/24 levalbuterol tartrate [Xopenex HFA] 45 mcg/actuation HFA aerosol inhaler 2 inh inhalation Q6H Qty: 15 1RF hydrocodone-acetaminophen 5-325 mg tablet 1 tablet PO BID PRN (Reason: pain, severe) Qty: 60 0RF Other Ambulatory Orders: Basic Metabolic Panel (Routine) Timeframe: 1 Week Location: Determined by Patient Ordered By: Ariela Gallagher Magnesium (Routine) Timeframe: 1 Week Location: Determined by Patient Ordered By: Ariela Gallagher Date of admission: 08/13/24 09:39 Primary Care Provider: Melida Ibarra Admitting Provider: Rocío Emmanuel Attending physician on admission: Ariela Gallagher Condition: Stable Hospitalist MIPS Heart Failure (Exclusion) Patient has history of Heart Transplant or Left Ventricular Assistive Device?: No IF YES, STOP HERE Heart Failure (Qualifier) Patient has current or prior documentation of LVEF less than or equal to 40%, or mod/servere depressed LVSF?: No IF NO, STOP HERE
[2024-08-16] MEDS: HEPARIN SODIUM LOCK FLUSH 500 UNITS/5 ML SYRINGE IV PUSH (16:52)
[2024-08-16 18:08] LABS: Legionella pneumophila Ag Ur. NOT DETECTED
== END 2024-08-16 17:02 | disposition home or self-care (01) | DRG 193 ==
LOC: ANHED 19:14 → ANHIMU 20:24 → ANH2MED 08-14 19:01
PROVIDERS: Emergency Medicine; Physician Assistant; Admitting Provider Internal Medicine; Emergency Provider Emergency Medicine; PCP Clinical Nurse Specialist; Visit Provider Nurse Practitioner Acute Care
DX: J18.9 Pneumonia, unspecified organism (principal); J96.01 Acute respiratory failure with hypoxia; C34.92 Malignant neoplasm of unspecified part of left bronchus or lung; I48.92 Unspecified atrial flutter; I42.0 Dilated cardiomyopathy; J96.12 Chronic respiratory failure with hypercapnia; I11.0 Hypertensive heart disease with heart failure; I50.82 Biventricular heart failure; I48.0 Paroxysmal atrial fibrillation; T45.1X5A Adverse effect of antineoplastic and immunosuppressive drugs, initial encounter; E78.5 Hyperlipidemia, unspecified; M48.54XD Collapsed vertebra, not elsewhere classified, thoracic region, subsequent encounter for fracture with routine healing; G62.9 Polyneuropathy, unspecified; F41.9 Anxiety disorder, unspecified; Z20.822 Contact with and (suspected) exposure to COVID-19; Z79.01 Long term (current) use of anticoagulants; Z72.0 Tobacco use
CPT/HCPCS: 36415; 36600; 71045; 71046; 71250; 71275; 80048; 80053; 82805; 83605; 83735; 83880; 85018; 85025; 87040; 87070; 87205; 87449; 87636; 87641; 87899; 93005; 93306; 94640; 96365; 96367; 96375; 97161; 97165; 99285; A9270; G0378; J0282; J0456; J0696; J1171; J1642; J1938; J2405; J7030; Q9967

== ENCOUNTER 2024-11-05 06:32 | Outpatient (CLI) | payer MEDICARE, OTHER, SELFPAY ==
--- OUTSIDE RECORDS SUMMARY | 2000-07-17 11:30 | XMS_ITS | Continuity of Care Document ---
Author Organization [facility] Address [address] [facility] [address] [place] [address] Phone Care Team Providers Care Project Development Manager Name Role Phone Beronica Morgan Unavailable Unavailable Advance Directives Directive Yes / No Effective Date File Name No Information Encounters Encounter Description Practice Location Reason(s) For Visit Diagnoses Date Provider Providers Copied on Encounter [facility], [address], [place], [place], [id number], [place] tel:[phone] [facility] No Information Apr-3 0-200 1 Cathy Loco. [address] [facility] , [address], [place], [address], [place]. tel:[phone] Family History Family Member Type Diagnosis Age At Onset No Information Payers Payer name Insurance type Covered democrat ID Authoriza tion(s) No Information Social History [...]
--- NOTE | ~2024-11-05 | CT_ITS ---
Clinical Indication: Lung cancer CT Scan of the Chest with Contrast: Technique: Contiguous sections were acquired throughout the chest after intravenous administration of 75 cc of Omnipaque 350. Dose reduction technique was used on this scan by utilizing automated exposure control and iterative reconstruction technique. The dose-length product (DLP) was 184.83 mGy-cm. COMPARISON: 08/13/2024 Findings: There is no evidence of any significant mediastinal, hilar or axillary lymphadenopathy. There is no filling defect in the pulmonary arterial tree to suggest pulmonary embolus. There is no evidence of aortic dissection or aneurysm. No pericardial effusion. Minimal right pleural effusion present. No left pleural effusion. 1.7 cm nodule in the medial left upper lobe is mildly increased from prior exam. Stable somewhat masslike consolidation in the posterior left upper lobe adjacent to the fissure extending towards the hilum, measuring up to approximately 4.8 x 2.5 cm in extent. Stable 7 mm lingular nodule present (axial image 81). Multiple subcentimeter left lower lobe pulmonary nodules are similar to prior exam. 1 cm right lower lobe nodule is similar to prior exam (axial image 107). Irregular nodular opacity present in the medial right lower lobe, possibly related to paravertebral osteophytes (axial image 82). There is mild to moderate emphysema. Images through the upper abdomen reveal probable 1.5 cm left hepatic lobe hypodense mass. Compression fracture findings of T9-T10 present, with intervertebral vertebroplasty. Impression: 1.7 cm medial left upper lobe nodule is probably mildly increased, which could reflect mild interval progression of disease. 1.5 cm hypodense left hepatic lobe mass, not clearly seen on prior exam. This is suspicious for a new hepatic metastasis, which would represent interval progression of disease. Masslike consolidation in the posterior left upper lobe which isn't the fissure extending towards the hilum is similar to prior exam, as detailed above. Multiple additional subcentimeter pulmonary nodules are similar to prior exam. Mild to moderate emphysema. Minimal right pleural effusion. Reviewed, dictated and finalized at [facility]. Impression: 1.7 cm medial left upper lobe nodule is probably mildly increased, which could reflect mild interval progression of disease. 1.5 cm hypodense left hepatic lobe mass, not clearly seen on prior exam. This i s suspicious for a new hepatic metastasis, which would represent interval progr ession of disease. Masslike consolidation in the posterior left upper lobe which isn't the fissure extending towards the hilum is similar to prior exam, as detailed above. Multiple additional subcentimeter pulmonary nodules are similar to prior exam. Mild to moderate emphysema. Minimal right pleural effusion.
--- OUTSIDE RECORDS SUMMARY | 2024-11-05 06:39 | XMS_ITS | Clinical Summary ---
Author Organization [facility] [employer] Address [address] [place] [address] Care Team Providers Care Coffee Taster Name Role Phone Freddy Gallagher MD Primary Care Provider Malik Lewis MD Unavailable [phone] Source Comments [facility],non-owned Affiliates and Associated Physician Practices is amultiple site organization consisting of ambulatory clinics and hospital sitesin [place], [place], [place] and [place]. This disclosure is being madepursuant to the Care Everywhere program and may not contain all information available regarding this patient. 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 MONITOR Gender Identity Not on file Sexual Orientation Not on file Last Filed Vital Signs Vital Sign Reading Time Taken Comments Blood Pressure 122/73 11/01/2023 3:03 PM CDT Pulse 66 11/01/2023 3:03 PM CDT Temperature 36.6 C (97.8 F) 11/01/2023 3:03 PM CDT Respiratory Rate 20 02/03/2016 4:24 PM YOUTH NUTRITIONAL MONITOR Oxygen Saturation 96% 11/01/2023 3:03 PM CDT Inhaled Oxygen Concentration - - Weight 63.2 kg (139 lb 6.4 oz) 11/01/2023 3:03 P M CDT Height 172.7 cm (5' 8) 11/01/2023 3:03 PM CDT Body Mass Index 21.2 11/01/2023 3:03 PM CDT Plan of Treatment Health Maintenance Due [...] season) 2023 DEPRESSION SCREENING 03/20/2024 INFLUENZA VACCINE (#1) 2024 LIPID TESTING 01/09/2029 01/10/2024 Respiratory Syncytial [...] Insurance MEDICARE [employer]ICARE [employer] Care Teams Coffee Taster Relationship Specialty Start Date End Date Freddy Gallagher MD [address] [place] [id number] PCP - General 01/28/20 Malik Lewis MD [address] [id number] Medical Oncology 01/11/24
--- OUTSIDE RECORDS SUMMARY | 2024-11-05 06:39 | XMS_ITS | Encounter Summary ---
Author Organization [facility] Healthcare Address [address] [place] [address] Care Team Providers Care Per Diem Name Role Phone Melida Ibarra NP Primary Care Provider Encounter Details Date Type Department Care Team (Late st Contact Info) Description 08/13/2024 Orders Only [facility] [place] Health Information Management [address] [place] [id number] Scanning, Provider Social History Tobacco Use Types Packs/Day Years Used Date Smoking Tobacco: Former Cigarettes Smokeless Tobacco: Never Comments Unknown Sex and Gender Information Value Date Recorded Sex Assigned at Not on file Legal Sex Female 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 Gender Identity Not on file Sexual Orientation Not on file documented as of this encounter Plan of Treatment Not on file documented as of this encounter Procedures Procedure Name Priority Date/Time Associated Diagnosis Comments SCAN - RADIOLOGY/IMAGING 08/13/2024 SCAN - LABS 08/13/2024 documented in this encounter Results * SCAN - LABS (08/13/2024) us Provider Scanning Final Result * SCAN - RADIOLOGY/IMAGING (08/13/2024) Anatomical Region Laterality Modality Other us Provider Scanning Final Result documented in this encounter Visit Diagnoses Not on filedocumented in this encounter Care Teams Per Diem Relationship Specialty Start Date End Date Melida Ibarra GENERAL DENTIST/OWNER [id number] [facility] [address] [place] [address] [place] [id number] PCP - General Cardiovascular Disease 07/02/24 documented as of this encounter
--- OUTSIDE RECORDS SUMMARY | 2024-11-05 06:39 | XMS_ITS | Encounter Summary ---
Author Organization [facility] Healthcare Address [address] [place] [address] Care Team Providers Care Account Manager [employer] Name Role Phone Freddy Gallagher MD Primary Care Provider Melida Ibarra NP Primary Care Provider [phone] Encounter Details Date Type Department Care Team (Late st Contact Info) Description 04/01/2024 Orders Only [facility] [place] [address] [place] [address] Scanning, Provider Social History Tobacco Use Types Packs/Day Years Used Date Smoking Tobacco: Former Cigarettes Comments Unknown Sex and Gender Information Value Date Recorded Sex Assigned at Not on file Legal 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 Female 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 IN Gender Identity Not on file Sexual Orientation Not on file documented as of this encounter Plan of Treatment Not on file documented as of this encounter Procedures Procedure Name Priority Date/Time Associated Diagnosis Comments SCAN - LABS 04/01/2024 documented in this encounter Results * SCAN - LABS (04/01/2024) us Provider Scanning Final Result documented in this encounter Visit Diagnoses Not on filedocumented in this encounter Care Teams Account Manager [employer] Relationship Specialty Start Date End Date Freddy Gallagher MD [address] [address] PCP - General Gastroenterology 10/14/23 07/01/24 Melida Ibarra ASSEMBLY STOCK SUPERVISOR [address] [place] [address] [address] PCP - General Cardiovascular Disease 07/02/24 documented as of this encounter
--- OUTSIDE RECORDS SUMMARY | 2024-11-05 06:39 | XMS_ITS | Encounter Summary ---
Author Organization [facility] Address [address] [place] [address] Care Team Providers Care Insole Coverer Name Role Phone Freddy Gallagher MD Primary Care Provider Encounter Details Date Type Department Care Team (Late st Contact Info) Description 03/25/2020 Chart Note [facility] Radiation Therapy [address] [place] [address] [place] [address] [place] [address] Social History Tobacco Use Types [...] COVID-19? 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 METAL GRINDER documented as of this encounter Plan of Treatment Upcoming Encounters Date Type Department Care Team (Late Contact Info) Description 11/13/2024 11:15 AM CDT Office Visit [facility] Oncology and Hematology - [place] [address] [facility] [address] [place] [address] Malik Lewis MD [address] [facility] [address] [place] [address] documented as of this encounter Visit Diagnoses Not on filedocumented in this encounter Care Teams Insole Coverer Relationship Specialty Start Date End Date Freddy Gallagher MD [address] [place] [address] PCP - General Gastroenterology 09/24/19 05/15/24 documented as of this encounter
--- OUTSIDE RECORDS SUMMARY | 2024-11-05 06:39 | XMS_ITS | Clinical Summary ---
Author Organization [facility] Forrest Avery Address [address] [address] Care Team Providers Care Mannequin Sander And Finisher Name Role Phone Unavailable Primary Care Provider Unavailabl e Allergies Active Allergy Reactions Criticality Noted Date Comments Juturgc-Zfn-Dri Reductase Inhibitors Muscle Pain Low 08/09/2024 Medications [...] mg by mouth daily in the morning. 024 Active sacubitriL-va lsartan (Entresto) 24-26 mg Tablet Take 1 Tablet by mouth 2 times daily. Active OTHER 2 times daily. CBD pain relief cream Active lidocaine (LIDODERM) 5 % Adhesive Patch, Medicated Apply 1 Patch to affected area every 24 hours. Active naloxone (NARCAN) 4 mg/spray [place], Non-Aerosol EMERGENCY USE ONLY: Administer 1 spray (4 mg) in one nostril one time. May repeat in alternating nostrils every 2-3 min until responsive or EMS arrives. 2 Each 3 025 Active ibuprofen (ADVIL;MOTRIN ) 100 mg/5 mL suspension Take 200 mg by mouth every 6 hours as needed for Pain, Mild. Active OTHER THC pain relief salve. Active oxyCODONE (ROXICODONE) 5 mg tablet Take 5 mg by mouth every 6 hours as needed for Pain. 025 Active amiodarone (CORDARONE) 200 mg tablet Take 200 mg by mouth daily. 024 Active coenzyme Q10 200 mg Capsule Take 200 mg by mouth daily. Active fluticasone-u meclidinium-v ilanterol (TRELEGY ELLIPTA) 100-62.5-25 mcg Disk with Device Take 1 Puff by inhalation daily. Active gabapentin (NEURONTIN) 300 mg capsuleIndica tions:Non-sma ll cell cancer of left lung (CMS/HCC) TAKE 1 CAPSULE BY MOUTH DAILY AT BEDTIME 30 Capsule 2 025 Active ALPRAZolam (XANAX) 0.25 mg tabletIndicat ions:Anxiety state TAKE 1 TABLET BY MOUTH EVERY 6 TO 8 HOURS NEEDED 30 Tablet 025 Active sotorasib (Lumakras) 320 mg Tablet Take 3 tablets (960 mg) by mouth daily. 90 Tablet 1 025 Active sotorasib (Lumakras) 320 mg Tablet Take 3 tablets (960 mg) by mouth daily. 90 Tablet 2 025 2024 Discontinued ALPRAZolam (XANAX) 0.25 mg tabletIndicat ions:Anxiety state TAKE 1 TABLET BY MOUTH EVERY 6 TO 8 HOURS NEEDED 30 Tablet 1 025 2024 Discontinued(R eorder) ALPRAZolam (XANAX) 0.25 mg tabletIndicat ions:Anxiety state TAKE 1 TABLET BY MOUTH EVERY 6 TO 8 HOURS NEEDED 90 Tablet 025 2024 Discontinued Active Problems Problem Noted Date [...] Encounters Date Type Department Care Team Description 10/31/[address] [facility] Oncology and Hematology - [place] [address] [place] [address] Malik Lewis MD 10/31/2024 Telephone [facility] Imaging Services [facility] [address] [place] [address] [place] [phone] Daria Cason, NADIYA Follow Up 10/30/2024 12:48 PM CDT Anesthesia Event [facility] Interventional Radiology S [facility] [address] [place] [phone] Thom Steele MD Kertz, Maria L, FRANKY-C 10/30/2024 10:09 AM CDT - 10/30/2024 5:33 PM CDT Hospital [facility] [place] [address] [place] [phone] Malik Lewis MD 14, [facility] Thom Steele MD Compression fracture of T9 vertebra with routine healing, subsequent encounter Discharge Disposition: Home or Self Care 10/25/2024 [facility] Oncology and Hematology - [place] [address] [place] [address] Malik Lewis MD Anxiety state 10/[facility] [place] [address] [place] [address] Malik Lewis MD Anxiety state 10/10/[facility] [place] [address] [place] [address] Malik Lewis MD Anxiety state 10/08/2024 9:50 AM CDT - 10/08/2024 11:59 PM CDT Hospital Encounter [facility] S [facility] [address] [place] [address] Melida Ibarra, HEALTH CARE COACH Discharge Disposition: Home or Self Care 10/04/[address] [facility] Oncology and Hematology - [place] [address] [place] [address] Malik Lewis MD Non-small cell cancer of left lung (CMS/HCC) 09/25/[address] [facility] Oncology and Hematology [facility] [address] [place] [address] Malik Lewis MD Anxiety state 09/17/2024 External Device Data STL ABSTRACTION Provider, Abstract 09/16/2024 1:00 PM CDT Office Visit [facility] Oncology and Hematology [facility] [address] [place] [address] Malik Lewis MD Non-small cell cancer of left lung ([facility]/HCC) (Primary Dx) 09/13/[address] [facility] Oncology and [facility] [address] [place] [address] Malik Lewis MD 09/10/2024 External Device Data STL ABSTRACTION Provider, Abstract 09/10/2024 External Device Data STL ABSTRACTION Provider, Abstract 08/20/[address] [facility] Oncology and [facility] [address] [place] [address] Malik Lewis MD 08/13/2024 External Device Data STL ABSTRACTION Provider, Abstract 08/13/2024 External Device Data STL ABSTRACTION Provider, Abstract 08/13/2024 External Device Data STL ABSTRACTION Provider, Abstract 08/09/2024 11:07 AM CDT - 08/10/2024 4:42 PM CDT Hospital Encounter [facility] [address] [place] [phone] Amanuel Loredo MD Habtu, Danni Yemane, DO Gravely, Sean Eric, DO Paroxysmal atrial fibrillation with rapid ventricular response ([facility]/HCC) Discharge Disposition: Home or Self Care 08/09/2024 10:59 AM CDT Anesthesia Event [facility] Interventional Radiology S [facility] [address] [place] [address] Kae Gomez MD 08/09/2024 Travel 08/07/2024 External Device Data STL ABSTRACTION Provider, Abstract 08/06/2024 External Device Data STL ABSTRACTION Provider, Abstract 08/05/[address] [facility] Oncology and Hematology - [place] [address] [place] [phone] Malik Lewis MD Anxiety state from Last 3 Months Family History Medical History Relation Name Comments Cancer Father Heart Disease Father Cancer Mother Heart Disease Mother Relation Name Status Comments Brother Alive Father Mother Sister Alive Social History Tobacco Use Types Packs/Day Years Used Date Smoking Tobacco: Some Days Cigarettes 1 41.1 Started: 10/02/2023 Smokeless Tobacco: Never Tobacco Cessation:Ready [...] Sign Reading Time Taken Comments Blood Pressure 111/60 10/30/2024 4:40 PM CDT Pulse 56 10/30/2024 4:40 PM CDT Temperature 36.4 C (97.6 F) 10/30/2024 3:45 PM CDT Respiratory Rate 18 10/30/2024 3:45 PM CDT Oxygen Saturation 94% 10/30/2024 4:40 PM CDT Inhaled Oxygen Concentration - - Weight 62.1 kg (137 lb) 10/30/2024 10:51 AM CDT Height 172.7 cm (5' 8) 10/30/2024 10:51 AM CDT Body Mass Index 20.83 10/30/2024 10:51 AM CDT Plan of Treatment Upcoming Encounters Date Type Department Care Team (Late st Contact Info) Description 11/13/2024 11:15 AM CDT Office Visit [facility] Oncology and Hematology - [place] [address] [place] [phone] Malik Lewis MD [address] [facility] [address] [place] [address] Health Maintenance Due Date Last [...] 2004 OSTEOPOROSIS SCREENING 12/24/2019 INFLUENZA VACCINE (#1) 2024 RSV VACCINE (60+ or ) (1 - 1-dose 75+ series) 2029 Medical Devices Implanted Type Area Administrative Assistant Office Manager Device Identifier Shelf Expiration Date Model / Serial / Lot Mix Kyphon Cx01b - [id number] Implanted:Qty : 1 on 10/30/2024 by Matthew Thompson MD at [facility] Cement N/A: Spine Thoracic [employer] - SPINAL fka KYPHON [id number] 07/18/2027 [id number] / / [id number] Procedures Procedure Name Priority Date/Time Associated Diagnosis Comments IR SPINAL INTERVENTION Routine 10/30/2024 2:08 PM CDT Compression fracture of T9 vertebra with routine healing, subsequent encounter PATHOLOGY Pathology 10/30/2024 1:45 PM CDT NJ ANES INSERT ENDOTRACHEAL AIRWAY Routine 10/30/2024 1:24 PM CDT BASIC METABOLIC PANEL Routine 09/12/2024 8:45 AM CDT CARDIAC EVENT MONITOR Pending Discharge 09/08/2024 5:00 AM CDT TELEMETRY REPORT 08/13/2024 3:57 PM CDT ECHO COMPLETE Pending Discharge 08/10/2024 8:33 AM [...] (URINE CONTAINER) Stat 08/09/2024 12:42 PM CDT EXTRA TUBE Stat 08/09/2024 12:42 PM CDT EKG 12-LEAD Stat 08/09/2024 12:19 PM CDT CRITICAL CARE Routine 08/09/2024 11:24 AM CDT EKG 12-LEAD Stat 08/09/2024 11:01 AM CDT TSH Routine 08/09/2024 10:07 AM CDT HEMOGLOBIN A1C Stat 08/09/2024 10:07 AM CDT MAGNESIUM LEVEL Stat 08/09/2024 10:07 AM CDT BASIC METABOLIC PANEL Stat 08/09/2024 10:07 AM CDT CBC WITH DIFFERENTIAL Stat 08/09/2024 10:07 AM CDT from Last 3 Months Results * IR SPINAL INTERVENTION (10/30/2024 2:08 PM CDT) Anatomical Region Laterality Modality Spine X-Ray Angiograph y 10/30/2024 2:10 PM CDT Impressions 10/31/2024 9:52 AM CDT IMPRESSION: 1. Fluoroscopic guided kyphoplasty of T9 and T10. 2. Fluoroscopic-guided T9 vertebral body biopsy. DICTATION LOCATION: Location 1, [facility] 10/31/2024 9:52 AM CDT 1. FLUOROSCOPIC-GUIDED PERCUTANEOUS KYPHOPLASTY OF T9 2. FLUOROSCOPIC-GUIDED PERCUTANEOUS KYPHOPLASTY OF T10 3. FLUOROSCOPIC GUIDED PERCUTANEOUS BIOPSY OF T9 DATE: 10/30/2024 2:08 PM HISTORY: 68 year-old female with history of acute T9-T10 compression fractures. Patient reports severe persistent mid to lower back pain. The patient failed conventional pain management and presents for kyphoplasty treatment. IR: Matthew Thompson MD MEDICATION: Antibiotics as documented in patient's chart. ANESTHESIA: 1% lidocaine locally and general anesthesia provided by the Department of Anesthesia. FLUOROSCOPY TIME : 11 minutes REFERENCE AIR KERMA DOSE: 160 mGy ESTIMATED BLOOD LOSS: 5 mL PROCEDURE: After explaining the procedure, benefits and risks (including the risk of bleeding, nerve damage, infection or paralysis) to the patient , informed consent was obtained. General anesthesia was initiated. The patient was then placed in a prone position on the fluoroscopy table. Pre-operative fluoroscopic evaluation of the spine was performed in a biplane fashion. Under direct fluoroscopic guidance, two osteo-introducer needles were advanced into the T9 vertebral body. A biopsy was performed. Through the needles, two balloon tamps were advanced and the fracture was reduced. The void created by the balloons were then filled with a cement mixture containing polymethylmethacrylate and barium. Attention was then turned to the T10 vertebral body. Under direct fluoroscopic guidance, a single osteointroducer needle was advanced into the T10 vertebral body.Through the needle, a balloon tamp was advanced and the fracture was reduced. The void created by the balloon was then filled with a cement mixture containing polymethylmethacrylate and barium. The patient remained in a prone position for 10 minutes. The patient tolerated the procedure well. The patient's neurologic exam was unchanged. Procedure Note Matthew Thompson MD - 10/31/2024 1. FLUOROSCOPIC-GUIDED PERCUTANEOUS KYPHOPLASTY OF T9 2. FLUOROSCOPIC-GUIDED PERCUTANEOUS KYPHOPLASTY OF T10 3. FLUOROSCOPIC GUIDED PERCUTANEOUS BIOPSY OF T9 DATE: 10/30/2024 2:08 PM HISTORY: 68 year-old female with history of acute T9-T10 compression fractures. Patient reports severe persistent mid to lower back pain. The patient failed conventional pain management and presents for kyphoplasty treatment. IR: Matthew Thompson MD MEDICATION: Antibiotics as documented in patient's chart. ANESTHESIA: 1% lidocaine locally and general anesthesia provided by the Department of Anesthesia. FLUOROSCOPY TIME : 11 minutes REFERENCE AIR KERMA DOSE: 160 mGy ESTIMATED BLOOD LOSS: 5 mL PROCEDURE: After explaining the procedure, benefits and risks (including the risk of bleeding, nerve damage, infection or paralysis) to the patient , informed consent was obtained. General anesthesia was initiated. The patient was then placed in a prone position on the fluoroscopy table. Pre-operative fluoroscopic evaluation of the spine was performed in a biplane fashion. Under direct fluoroscopic guidance, two osteo-introducer needles were advanced into the T9 vertebral body. A biopsy was performed. Through the needles, two balloon tamps were advanced and the fracture was reduced. The void created by the balloons were then filled with a cement mixture containing polymethylmethacrylate and barium. Attention was then turned to the T10 vertebral body. Under direct fluoroscopic guidance, a single osteointroducer needle was advanced into the T10 vertebral body.Through the needle, a balloon tamp was advanced and the fracture was reduced. The void created by the balloon was then filled with a cement mixture containing polymethylmethacrylate and barium. The patient remained in a prone position for 10 minutes. The patient tolerated the procedure well. The patient's neurologic exam was unchanged. IMPRESSION: 1. Fluoroscopic guided kyphoplasty of T9 and T10. 2. Fluoroscopic-guided T9 vertebral body biopsy. DICTATION LOCATION: Location 1, [facility] Malik Lewis MD IR ORDERABLES Final Result * PATHOLOGY (10/30/2024 1:45 PM CDT) CASE REPORT Surgical Pathology Report Case: [id number] Authorizing Provider: Matthew Thompson MD Collected: 10/30/2024 01:45 PM Ordering Location: [facility] St Received: 10/31/2024 07:15 AM Dequan Pathologist: Perla Gayle MD Specimen: Bone, T9 bone 5 4:44 PM CDT [facility] FINAL DIAGNOSIS Vertebral body, T9, kyphoplasty with biopsy: - Mild reactive changes and fibrosis, clinical history of fracture. 5 4:44 PM CDT [facility] at 1643 CDT GROSS DESCRIPTION Received in one container labeled Yessenia Clement and T9 bone biopsy is a 1.2 x 0.3 cm cylindrical core of firm boudreaux bone which is entirely submitted in cassette A1 following decalcification. The remaining contents of the container are filtered into a mesh bag and consists of a 1.0 x 1.0 x 0.1 cm aggregate of possible pink-boudreaux tissue which is entirely submitted in cassette A2. Cassette (A1) decalcified in decal ll at the bench. [facility] 5 4:44 PM CDT [facility] MICROSCOPIC DESCRIPTION The slides are labeled [id number] and Yessenia Clement. Sections show a bone core with mild reactive changes and fibrosis. The bone marrow shows trilineage hematopoiesis. Pancytokeratin is negative. CD3 and CD20 shows staining within reactive T and B lymphocytes and CD138 shows staining in scattered plasma cells. There is no evidence of acute inflammation, cytologic atypia or an overt malignant process. 5 4:44 PM CDT [facility] OPERATIVE PROCEDURE T9-T10 kyphoplasty of T9-T10 with biopsy 5 4:44 PM CDT [facility] CLINICAL INFORMATION T9 bone Compression Fracture 5 4:44 PM CDT [facility] COMMENT Special stain, immunohistochemical, and/or in situ hybridization results are interpreted with controls that demonstrate appropriate staining reactions. Note on use of immunohistochemistry reagents and in situ hybridization probes: These tests were developed and their performance characteristics determined by [facility], Department of Laboratory Medicine. It has not been cleared or approved by the U.S. Food and Drug Administration. The FDA has determined that such clearance or approval is not necessary. The test is used for clinical purposes. It should not be regarded as investigational or for research. This laboratory is certified to perform high complexity testing. Frozen section/operating room consultation, gross examination and dissection, and case sign out may have been performed in part or completely in the following laboratories: [facility], [place] #[id number] [address] [place] [address] [facility], [place] #[id number] [address] [place] [address] [facility], [place] #[id number] [address] [place] [address] This report was created with the toucanBox voice-activated dictation system. Inherent to this system is the possibility of syntax, grammar, punctuation and other errors that could impact the interpretation of the report. If there are interpretative questions about aspects of this report, please contact the performing pathologist. 4:44 PM CDT [facility] Tissue ENTIRE BONE ORGAN / Unknown Collection / Unknown 10/30/2024 1:45 PM CDT 10/31/2024 7:15 AM CDT Comment:T9 bone Matthew Thompson MD PATHOLOGY/CYTOLOGY ORDERABLES F inal Result [facility]# [id number] [address] [facility] [place] [address] * NJ ANES INSERT ENDOTRACHEAL AIRWAY (10/30/2024 1:24 PM CDT) Narrative Thom Steele MD - 10/30/2024 1:24 PM CDT Thom Steele MD 10/30/2024 1:25 PM Airway Date/Time: 10/30/2024 1:24 PM Location: OR Plan: elective intubation Patient Identity Confirmed by: Verbally with patient Airway: not difficult Staffing Performed: Anesthesiologist (/) Authorized by: Thom Steele MD Performed by: Thom Steele MD Indications and Patient Condition: Indications for Airway Management: Anesthesia Sedation Level: general anesthesia Preoxygenated: yes Patient Position: Sniffing Mask Difficulty Assessment: 1 - vent by mask Plan to extubate at end of case: Yes Final Airway Details: Final Airway Type: Endotracheal airway ETT Cuffed: Yes Cuff Volume (mL): 7 Technique Used for Successful ETT Placement: Direct laryngoscopy Devices/Methods Used in Placement: Intubating stylet Blade Type: curved blade Blade Size: 3 Insertion Site: Oral ETT Size (mm): 7.0 Measured from: Teeth ETT to Teeth (cm): 22 Tube secured with: Tape Placement Verified by: auscultation, end tidal CO2 and chest rise Cormack-Lehane Classification: Grade IIb - view of arytenoids or posterior of glottis only Number of Attempts at Approach: 1 Additional Procedure Information: atraumatic and dentition unchanged us Thom Steele MD PROCEDURE/MINOR SURGICAL ORD ERABLES Final Result * BASIC METABOLIC PANEL (09/12/2024 8:45 AM CDT) Only the most recent of3 resultswithin the time period is included. Blood us Malik Lewis MD CHEMISTRY ORDERABLES Final Resu lt * CARDIAC EVENT MONITOR (09/08/2024 5:00 AM CDT) 09/08/2024 5:00 AM CDT Narrative INTERFACE SYSTEM - 09/13/2024 10:21 AM CDT 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: : 1955 Requested By: AMANUEL Jolley Order Number: [id number] Poli MD: Marquis Ruiz Interpretive Statements Date Description Findings HR 08/10/2024 20:00:48 CDT Auto Trigger Sinus Rhythm with IVCD 73 08/11/2024 00:33:04 CDT Auto Trigger Sinus Rhythm with IVCD 63 08/12/2024 03:08:23 CDT Auto Trigger Sinus Tachycardia with IVCD Atrial Run(s) and PSVT Onset 166 08/12/2024 03:08:36 CDT Auto Trigger PSVT 167 08/12/2024 14:25:08 CDT Short of Breath Sinus Rhythm with IVCD and PAC(s) 99 08/12/2024 14:28:31 CDT Auto Trigger Sinus Rhythm with IVCD and PSVT Onset 16 beats, Rate 159 BPM 159 08/12/2024 14:28:37 CDT Auto Trigger PSVT 16 beats, Rate 159 BPM Offset into Sinus Rhythm with IVCD 159 08/13/2024 09:23:22 CDT Auto Trigger Supraventricular Tachycardia with IVCD 157 08/13/2024 10:11:43 CDT Heart Racing Supraventricular Tachycardia with IVCD and PVC(s) 156 08/13/2024 20:28:55 CDT Auto Trigger Sinus Rhythm with IVCD 85 08/14/2024 15:17:53 CDT Auto Trigger Sinus Rhythm with IVCD and PAC(s) 75 08/20/2024 13:48:56 CDT Auto Trigger Sinus Bradycardia with IVCD and Junctional Escape Beat(s) 40 08/21/2024 00:24:28 CDT Auto Trigger Sinus Bradycardia with IVCD and 3.0 Second Pause 28 08/22/2024 07:10:20 CDT Auto Trigger Sinus Bradycardia with IVCD and 3.0 Second Pause 36 08/24/2024 14:01:59 CDT Auto Trigger Sinus Bradycardia with 2.1 Second Pause and PAC(s) 37 08/25/2024 06:50:57 CDT Auto Trigger Sinus Arrhythmia with IVCD 2.6 Second Pause and Junctional Escape Beat(s) 29 08/28/2024 03:38:49 CDT Auto Trigger Sinus Rhythm with IVCD 75 08/29/2024 02:27:17 CDT Auto Trigger Sinus Bradycardia with IVCD and 2.4 Second Pause 41 08/31/2024 13:56:08 CDT Auto Trigger Sinus Rhythm with IVCD 63 09/02/2024 23:39:36 CDT Auto Trigger Sinus Rhythm with IVCD and PAC(s) 67 Summary: Underlying rhythm mostly sinus. several runs of SVT noted. Several episodes of sinus loraine with min HR 28bpm with pauses up to 3.0sec noted along with junctional escape beats. PAC/PVCs noted. atrial run noted. Electronically Signed On 09-13-2024 10:21:26 CDT by Marquis Ruiz Procedure Note Marquis Ruiz MD - 09/13/2024 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1955 Requested By: AMANUEL Jolley Order Number: [id number] Reading MD: Marquis Ruiz Interpretive Statements Date Description Findings HR 08/10/2024 20:00:48 CDT Auto Trigger Sinus Rhythm with IVCD 73 08/11/2024 00:33:04 CDT Auto Trigger Sinus Rhythm with IVCD 63 08/12/2024 03:08:23 CDT Auto Trigger Sinus Tachycardia with IVCD Atrial Run(s) and PSVT Onset 166 08/12/2024 03:08:36 CDT Auto Trigger PSVT 167 08/12/2024 14:25:08 CDT Short of Breath Sinus Rhythm with IVCD and PAC(s)99 08/12/2024 14:28:31 CDT Auto Trigger Sinus Rhythm with IVCD and PSVT Onset16 beats, Rate 159 BPM 159 08/12/2024 14:28:37 CDT Auto Trigger PSVT 16 beats, Rate 159 BPM Offsetinto Sinus Rhythm with IVCD 159 08/13/2024 09:23:22 CDT Auto Trigger Supraventricular Tachycardia withIVCD 157 08/13/2024 10:11:43 CDT Heart Racing Supraventricular Tachycardia withIVCD and PVC(s) 156 08/13/2024 20:28:55 CDT Auto Trigger Sinus Rhythm with IVCD 85 08/14/2024 15:17:53 CDT Auto Trigger Sinus Rhythm with IVCD and PAC(s) 75 08/20/2024 13:48:56 CDT Auto Trigger Sinus Bradycardia with IVCD and Junctional Escape Beat(s) 40 08/21/2024 00:24:28 CDT Auto Trigger Sinus Bradycardia with IVCD and 3.0 Second Pause 28 08/22/2024 07:10:20 CDT Auto Trigger Sinus Bradycardia with IVCD and 3.0 Second Pause 36 08/24/2024 14:01:59 CDT Auto Trigger Sinus Bradycardia with 2.1 SecondPause and PAC(s) 37 08/25/2024 06:50:57 CDT Auto Trigger Sinus Arrhythmia with IVCD 2.6 Second Pause and Junctional Escape Beat(s) 29 08/28/2024 03:38:49 CDT Auto Trigger Sinus Rhythm with IVCD 75 08/29/2024 02:27:17 CDT Auto Trigger Sinus Bradycardia with IVCD and 2.4 Second Pause 41 08/31/2024 13:56:08 CDT Auto Trigger Sinus Rhythm with IVCD 63 09/02/2024 23:39:36 CDT Auto Trigger Sinus Rhythm with IVCD and PAC(s) 67 Summary: Underlying rhythm mostly sinus. several runs of SVT noted.Several episodes of sinus loraine with min HR 28bpm with pauses up to 3.0sec noted along with junctional escape beats. PAC/PVCs noted. atrial run noted. Electronically Signed On 09-13-2024 10:21:26 CDT by Marquis Ruiz Damion Guzman DO CARDIAC SERVICES ORDERABLES Final Result INTERFACE SYSTEM Refer to clinic/hospital department * TELEMETRY REPORT (08/13/2024 3:57 PM CDT) us Provider Scanning ECG ORDERABLES Final Result * ECHO COMPLETE - CONTRAST AND STRAIN IF INDICATED (08/10/2024 8:33 AM CDT) EJECTION FRACTION 52 INTERFACE SYSTEM 08/10/2024 6:58 AM CDT Narrative INTERFACE SYSTEM - 08/10/2024 10:48 AM CDT [address] [place] [address] [email or web address] Echocardiogram Patient: Yessenia Clement Study ID: ECHO COMPLETE - Gender: Joya : 1955 Age: 68 Race: ROBERT Height 172.7cm Study Date: 08/10/2024 Weight: 66.7kg Access. #: [id number] BP: *Referring Physician:* Manuel Bryan *Ordering Physician:* Manuel Bryan press loader: Nurse: Indications: Atrial fibrillation/flutter. STUDY CONCLUSIONS: SUMMARY: [...] Prepared and Electronically Authenticated Khloe Wilkes Bruce [id number] Procedure Note Eder Wilkes MD - 08/10/2024 [place] [address] [email or web address] Transthoracic Echocardiogram Patient: Yessenia Clement Study ID: ECHO COMPLETE - Gender: Joya : 1955 Age: 68 Race: CAU Height 172.7cm Study Date: 08/10/2024 Weight: 66.7kg Access. #: [id number] BP: *Referring Physician:* Manuel Bryan *Ordering Physician:* Manuel Bryan press loader: Nurse: Indications: Atrial fibrillation/flutter. STUDY CONCLUSIONS: SUMMARY: [...] 06:58 AM. Prepared and Electronically Authenticated Khloe Wilkes, Eder [id number] Manuel Bryan MD ORDERABLES Tawny durham Result INTERFACE SYSTEM Refer to clinic/hospital department * (ABNORMAL) CBC WITHOUT DIFFERENTIAL (08/10/2024 2:11 AM CDT) [facility] WBC 5.5 4.0 - 9.8 K/uL 08/10/2024 2:55 AM CDT [facility] RBC 3.99 3.90 - 4.90 M/uL 08/10/2024 2:55 AM CDT [facility] - [facility] HEMOGLOBIN 14.1 11.8 - 14.8 g/dL 08/10/2024 2:55 AM CDT [facility] - [facility] HEMATOCRIT 44.4(H) 35.5 - 44.0 % 08/10/2024 2:55 AM CDT [facility] - [facility] MCV 111.3(H) 82.0 - 99.0 fL 08/10/2024 2:55 AM CDT [facility] - [facility] MCH 35.3(H) 27.2 - 32.6 pg 08/10/2024 2:55 AM CDT [facility] - [facility] MCHC 31.8 31.5 - 35.5 g/dL 08/10/2024 2:55 AM CDT [facility] - . [facility] PLATELETS 210 140 - 350 K/uL 08/10/2024 2:55 AM CDT [facility] - . [facility] MPV 9.4 9.3 - 12.4 fL 08/10/2024 2:55 AM CDT [facility] - . [facility] RDW 13.8 11.5 - 14.5 % 08/10/2024 2:55 AM CDT [facility] - [facility] RDW-STDEV 57.5(H) 37.1 - 48.7 fL 08/10/2024 2:55 AM T [facility] - [facility] Blood Venipuncture / Unknown 08/10/2024 2:11 AM CDT 08/10/2024 2:32 AM CDT us Manuel Bryan MD HEMATOLOGY ORDERABLE S Final Result [facility] CLIA# [id number] [address] [id number] * MAGNESIUM LEVEL (08/10/2024 2:11 AM CDT) Only the most recent of2 resultswithin the time period is included. MAGNESIUM 1.8 1.6 - 2.4 mg/dL 08/10/2024 3:28 AM CDT [facility] Blood Venipuncture / Unknown 08/10/2024 2:11 AM CDT 08/10/2024 2:31 AM CDT Manuel Bryan MD CHEMISTRY ORDERABLES Final Result [facility]# [id number] [address] [facility] [place] [address] * (ABNORMAL) LIPID PANEL (08/10/2024 2:11 AM CDT) [facility] CHOLESTEROL 167 <200 mg/dL 08/10/2024 3:28 AM CDT [facility] TRIGLYCERIDE 78 <150 mg/dL 08/10/2024 3:28 AM CDT [facility] HDL 43 40 - 59 mg/dL 08/10/2024 3:28 AM CDT [facility] LDL CALCULATED 108(H) <100 mg/dL 08/10/2024 3:28 AM CDT [facility] NON-HDL CHOLESTEROL 124 <130 mg/dL 08/10/2024 3:28 AM CDT [facility] Blood Venipuncture / Unknown 08/10/2024 2:11 AM CDT 08/10/2024 2:31 AM CDT Narrative [facility] - 08/10/2024 3:28 AM CDT TOTAL CHOLESTEROL [...] Reference Ranges for Lipid Panels (NCEP/AMA) . us Manuel Bryan MD CHEMISTRY ORDERABLES Final Result [facility]# [id number] [address] [facility] [place] [address] * EKG 12-LEAD (08/09/2024 12:54 PM CDT) Only the most recent of3 resultswithin the time period is included. 08/09/2024 12:5 4 PM CDT Narrative INTERFACE SYSTEM - 08/09/2024 5:03 PM CDT 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 [address] [place] [address] Test Date: 2024-08-09 Pat Name: YESSENIA CLEMENT Department: 40 Room: 3080 Gender: F Jeweler Apprentice: [email or web address] : 1955 Requested By: AMANUEL Jolley Order Number: [id number] Poli AGUIAR: Ian Cottrell Measurements Intervals [place] Rate: 75 P: 61 [place]: 175 QRS: -64 QRSD: 114 T: 87 [...] CDT 08/09/2024 12:42 PM CDT us Protocol [facility] Emergency MD URINE ORDERABLES Fin al Result Performing Organization Address [facility] Co de Phone Number [facility]# [id number] [address] [place] [address] * Critical Care (08/09/2024 11:24 AM CDT) [...] CBC WITH DIFFERENTIAL (08/09/2024 10:07 AM CDT) [facility] WBC 5.5 4.0 - 9.8 K/uL 08/09/2024 10:35 AM CDT [facility] - [facility] RBC 4.55 3.90 - 4.90 M/uL 08/09/2024 10:35 AM CDT [facility] - [facility] HEMOGLOBIN 16.0(H) 11.8 - 14.8 g/dL 08/09/2024 10:35 AM CDT [facility] - [facility] HEMATOCRIT 50.2(H) 35.5 - 44.0 % 08/09/2024 10:35 AM CDT [facility] - [facility] MCV 110.3(H) 82.0 - 99.0 fL 08/09/2024 10:35 AM CDT [facility] - [facility] MCH 35.2(H) 27.2 - 32.6 pg 08/09/2024 10:35 AM CDT [facility] - [facility] MCHC 31.9 31.5 - 35.5 g/dL 08/09/2024 10:35 AM CDT [facility] - [facility] RDW 13.9 11.5 - 14.5 % 08/09/2024 10:35 AM CDT [facility] - [facility] RDW-STDEV 57.7(H) 37.1 - 48.7 fL 08/09/2024 10:35 AM CDT [facility] - [facility] PLATELETS 232 140 - 350 K/uL 08/09/2024 10:35 AM CDT [facility] - . [facility] MPV 9.7 9.3 - 12.4 fL 08/09/2024 10:35 AM CDT [facility] - . [facility] NEUTROPHILS 71 % 08/09/2024 10:35 AM CDT [facility] - . [facility] LYMPHOCYTES 21 % 08/09/2024 10:35 AM CDT [facility] - [facility] MONOCYTES 8 % 08/09/2024 10:35 AM CDT [facility] - [facility] EOSINOPHILS 0 % 08/09/2024 10:35 AM CDT [facility] - [facility] BASOPHILS 0 % 08/09/2024 10:35 AM CDT [facility] - . [facility] IMMATURE GRANULOCYTES 0 % 08/09/2024 10:35 AM CDT [facility] - . [facility] NEUTROPHIL ABSOLUTE 3.88 1.90 - 7.00 K/uL 08/09/2024 10:35 AM CDT [facility] - . [facility] LYMPHOCYTE ABSOLUTE 1.16 0.70 - 4.50 K/uL 08/09/2024 10:35 AM CDT [facility] - [facility] MONOCYTE ABSOLUTE 0.41 0.10 - 1.30 K/uL 08/09/2024 10:35 AM CDT [facility] - . [facility] EOSINOPHIL ABSOLUTE 0.01 0.00 - 0.70 K/uL 08/09/2024 10:35 AM CDT [facility] - [facility] BASOPHILS ABSOLUTE 0.01 0.00 - 0.20 K/uL 08/09/2024 10:35 AM CDT [facility] - . [facility] IMMATURE GRANULOCYTES ABSOLUTE 0.02 0.00 - 0.03 K/uL 08/09/2024 10:35 AM T [facility] - [facility] Blood Venipuncture / Unknown 08/09/2024 10:07 AM CDT 08/09/2024 10:21 AM CDT Mejia Davila MD HEMATOLOGY ORDERABLES Final R esult [facility] [id number] [address] [facility] [address] [place], [place] [address] * TSH (08/09/2024 10:07 AM CDT) TSH 1.24 0.27 - 4.20 uIU/mL 08/09/2024 6:19 PM T [facility] - [facility] Blood Venipuncture / Unknown 08/09/2024 10:07 AM CDT 08/09/2024 10:21 AM CDT Katlin Quesada DO CHEMISTRY ORDERABLES Final Result [facility]# [id number] [address] [place] [address] * HEMOGLOBIN A1C (08/09/2024 10:07 AM CDT) HEMOGLOBIN A1C 5.6 <5.7 % 08/09/2024 3:58 PM CDT [facility] EST. AVG GLUCOSE, A1C 114 mg/dL 08/09/2024 3:58 PM CDT [facility] Blood Venipuncture / Unknown 08/09/2024 10:07 AM CDT 08/09/2024 10:21 AM CDT Narrative [facility] - 08/09/2024 3:58 PM CDT HGB A1C INTERPRETATION NORMAL: <5.7% PRE-DIABETES: 5.7 - 6.4% DIABETES: 6.5% OR GREATER Manuel Bryan MD CHEMISTRY ORDERABLES Final Result Performing Organization Address [facility] de Phone Number [facility]# [id number] [address] [place] [address] from Last 3 Months Insurance MEDICARE PART A AND B [employer] Medicare Part D MEDICARE PART A AND B [employer] Advance Directives For more information, please contact: [phone] * Full Code (Latest Code Status on File) Date Activated Date Inactivated Comments 10/30/2024 12:09 PM 10/30/2024 7:34 PM * Full Code Date Activated Date Inactivated Comments 08/09/2024 2:42 PM 08/10/2024 6:47 PM
--- OUTSIDE RECORDS SUMMARY | 2024-11-05 06:39 | XMS_ITS | Clinical Summary ---
Author Organization [facility] [address] Address [address] [place] [address] Care Team Providers Care Armature Connector Name Role Phone Melida Ibarra NP Primary Care Provider Allergies Active Allergy Reactions Criticality Noted Date Comments Pentazocine Itching Low 11/14/2023 Medications ALPRAZolam (XANAX) 0.25 mg tablet TAKE 1 TABLET BY MOUTH EVERY 6 TO 8 HOURS NEEDED Active gabapentin (NEURONTIN) 300 mg capsule TAKE 1 CAPSULE BY MOUTH DAILY AT BEDTIME Active sotorasib (LUMAKRAS) 320 mg tablet Take 3 tablets (960 mg total) by mouth daily 11/15/19 24 Active simvastatin (ZOCOR) 20 mg tabletIndications: Lipid screening,Coronary artery disease involving [place]apache coronary artery of [place]apache heart without angina pectoris Take 1 tablet (20 mg total) by mouth nightly 30 tablet 11 01/10/20 24 025 Active Additional Information Patient not taking.Reason: Side effects, Reported on 09/06/2024 metoprolol XL (TOPROL-XL) 25 mg extended release tablet TAKE 1 TABLET(25 MG) BY MOUTH EVERY MORNING 90 tablet 3 02/12/20 24 Active Eliquis 5 mg tablet TAKE 1 TABLET(5 MG) BY MOUTH EVERY 12 HOURS 180 tablet 1 06/12/19 25 Active sacubitriL-valsart an (Entresto) 24-26 mg tabletIndications: Dilated cardiomyopathy (HCC) TAKE 1 TABLET BY MOUTH TWICE DAILY 180 tablet 2 08/24/19 25 Active amiodarone (PACERONE) 200 mg tablet Take 1 tablet (200 mg total) by mouth daily 08/19/19 25 Active HYDROcodone-acetam inophen (NORCO) 5-325 mg per tablet Take 1 tablet by mouth every 6 (six) hours as needed 08/22/19 25 Active fluticasone-umecli din-vilanter (Trelegy Ellipta) 100-62.5-25 mcg inhaler Inhale 1 puff daily Active Active Problems Problem Noted Date Diagnosed Date Hospital discharge follow-up 11/29/2023 HFrEF (heart failure with reduced ejection fract ion) 11/29/2023 Dilated cardiomyopathy 11/29/2023 Paroxysmal atrial fibrillation 11/29/2023 Encounters Date Type Department Care Team Description 10/10/2024 Telephone [facility] Cardiology [address] [place] [address] [place] [phone] Susan Hucthinson NP 10/08/2024 Telephone [place] [address] [place] [phone] Regan Peraza MD 09/25/2024 Telephone [facility] Cardiology [address] [place] [address] [place] [phone] Regan Peraza MD 09/06/2024 11:30 AM CDT Office Visit [facility] Cardiology [address] [place] [address] [place] [phone] Susan Hutchinson NP Paroxysmal atrial fibrillation (HCC) (Primary Dx); Chronic anticoagulation; Hospital discharge follow-up; Preoperative cardiovascular examination 08/16/2024 Orders Only [facility] Cardiology [address] [place] [address] [place] [phone] Kayli Doe MD 08/15/2024 Orders Only [facility] Health Information Management [address] [place] [address] Scanning, Provider 08/15/2024 Orders Only [facility] Cardiology [address] [place] [address] [place] [phone] Kayli Doe MD 08/13/2024 Orders Only [facility] Health Information Management [address] [place] [address] Scanning, Provider 08/09/2024 Telephone [facility] Cardiology [address] [place] [address] Regan Peraza MD from Last 3 Months Surgical History Surgery Date Site/Laterality Comments TONSILLECTOMY Bilateral HYSTERECTOMY CHOLECYSTECTOMY Medical History Medical History Date Comments Hypertension Cardiac rhythm disturbance COPD (chronic obstructive pulmonary disease) Family History Medical History Relation Name Comments Blood Clot Sister Relation Name Status Comments Father Mother Sister Social History Tobacco Use Types Packs/Day Years Used Date Smoking Tobacco: Former Cigarettes Smokeless Tobacco: Never Tobacco Cessation:Counseling Given: Not Answered Comments Unknown Sex and Gender Information Value Date Recorded Sex Assigned at Not on file 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 Gender Identity Not on file Sexual Orientation Not on file Obstetrics History Last Filed Vital Signs Vital Sign Reading Time Taken Comments Blood Pressure 116/72 09/06/2024 11:38 AM CDT Pulse 84 09/06/2024 11:38 AM CDT Temperature - - Respiratory Rate - - Oxygen Saturation 98% 09/06/2024 11:38 AM CDT Inhaled Oxygen Concentration - - Weight 63 kg (139 lb) 09/06/2024 11:38 AM CDT Height 172.7 cm (5' 8) 09/06/2024 11:38 AM CDT Body Mass Index 21.13 09/06/2024 11:38 AM CDT Plan of Treatment Health Maintenance [...] 1974 Well Visit 65+ 12/24/2019 Influenza Vaccine (#1) 2024 4, 12/15/2022, 12/30/2021, Additional history exists Procedures Procedure Name Priority Date/Time Associated Diagnosis Comments SCAN - RADIOLOGY/IMAGING 08/15/2024 CARDIOLOGY DOCUMENT SCAN Routine 025 11:06 AM CDT CARDIOLOGY DOCUMENT SCAN Routine 08/13/2024 9:11 AM CDT SCAN - LABS 08/13/2024 SCAN - RADIOLOGY/IMAGING 08/13/2024 from Last 3 Months Results * SCAN - RADIOLOGY/IMAGING (08/15/2024) Anatomical Region Laterality Modality Other us Provider Scanning Final Result * Cardiology Document Scan (08/14/2024 11:06 AM CDT) Anatomical Region Laterality Modality Other us Ripa Fermín Doe MD [facility] PRO CEDURES Final Result * Cardiology Document Scan (08/13/2024 9:11 AM CDT) Anatomical Region Laterality Modality Other us Ripa Fermín Doe MD [facility] PRO CEDURES Final Result * SCAN - RADIOLOGY/IMAGING (08/13/2024) Anatomical Region Laterality Modality Other us Provider Scanning Final Result * SCAN - LABS (08/13/2024) us Provider Scanning Final Result from Last 3 Months Insurance MEDICARE [facility] [place] Care Teams Armature Connector Relationship Specialty Start Date End Date Melida Ibarra NP [facility] [address] [address] PCP - General Cardiovascular Disease 07/02/24
--- OUTSIDE RECORDS SUMMARY | 2024-11-05 06:39 | XMS_ITS | Encounter Summary ---
Author Organization [facility] [email or web address] Address [address] [place] [address] Care Team Providers Care Churn Operator Name Role Phone Freddy Gallagher MD Primary Care Provider Reason for Visit * Reason Onset Date Comments Medication Refill 09/05/2022 Encounter Details Date Type Department Care Team ([facility] Contact Info) Description 09/05/2022 Telephone [facility] Oncology and Hematology - [address] [place] [address] Malik Lewis MD [address] [place], [place] [address] [address] [place] [phone] Medication Refill Social History Tobacco Use [...] Upcoming Encounters Date Type Department Care Team ([facility] Contact Info) Description 11/13/2024 11:15 AM CDT Office Visit [facility] Oncology and Hematology - T[address] [place] [address] Malik Lewis MD [facility] [email or web address] [address] [place] [phone] documented as of this encounter Visit Diagnoses Not on filedocumented in this encounter Care Teams Churn Operator Relationship Specialty Start Date End Date Freddy Gallagher MD [address] [place] [phone] PCP - General Gastroenterology 09/24/19 05/15/24 documented as of this encounter
[2024-11-05 07:03] LABS: Estimated Glomerular Filt Rate > 60
== END 2024-11-05 06:33 | disposition home or self-care (01) ==
LOC: ANHIMG 06:37
PROVIDERS: PCP Clinical Nurse Specialist; Visit Provider Internal Medicine Hematology & Oncology
DX: C34.92 Malignant neoplasm of unspecified part of left bronchus or lung (principal); R91.8 Other nonspecific abnormal finding of lung field; R91.1 Solitary pulmonary nodule; R16.0 Hepatomegaly, not elsewhere classified; J43.9 Emphysema, unspecified; J90 Pleural effusion, not elsewhere classified
CPT/HCPCS: 71260; Q9967

== ENCOUNTER 2024-11-16 16:18 | Emergency (ER) | payer MEDICARE, OTHER, SELFPAY ==
--- OUTSIDE RECORDS SUMMARY | 2000-07-17 11:30 | XMS_ITS | Continuity of Care Document ---
[facility] Organization [facility] Address [address] [facility] [address] [place] [address] Phone Care Team Providers Care Rivet Driver Name Role Phone Beronica Morgan Unavailable Unavailable Advance Directives Directive Yes / No Effective Date File Name No Information Encounters Encounter Description Practice Location Reason(s) For Visit Diagnoses Date Provider Providers Copied on Encounter [facility], [address], [place], [place], [id number], [place] tel:[phone] [facility] No Information Apr-3 0-200 1 Cathy Loco. [address] , [address], [place], [address], [place]. tel:[phone] Family History Family Member Type Diagnosis Age At Onset No Information Payers Payer name Insurance type Covered republican ID Authoriza tion(s) No Information Social History Type Description Quantity Date Captured Comments Sex Female Smoking Status No Information Chief Complaint And Reason For Visit No Information Reason For Referral Reason For Referral No Information History Of Present Illness Encounter Date Complaint History Of Prese nt Illness No Information Functional Status Date Functional Assessmen t No Information Instructions Date Instruction Additional Infor mation No Information Assessments Type Assessment Date No Information Patient Care Teams Name Effective Dates (start - stop) Status Members No Information
[2024-11-16] VITALS (24 sets, daily range): BP systolic 75–137; BP diastolic 53–79; PULSE 76–87; RESP 18–31; O2SAT 80–99
--- NOTE | ~2024-11-16 | CT_ITS ---
EXAMINATION: CTA chest PE protocol, 11/16/2024 18:00 CDT HISTORY: CP with SOA COMPARISON: Comparison 11/05/2024. TECHNIQUE: CTA examination is obtained with contrast CTA examination technique is performed with arterial phase of contrast-enhancement. 3-D reconstruction with thin MIP axial and MPR coronal imaging is provided Isovue 300, 92cc injected IV. One or more of the following dose reduction techniques were used: automated exposure control, adjustment of the mA and/or kV according to patient size, use of iterative reconstruction technique. FINDINGS: No significant coronary calcification is present ([id number]) LUNGS: Trace simple appearing pleural effusions. The contrast bolus is adequate, there is no pulmonary embolism identified. No tracheomalacia. No bronchiectasis. Moderate emphysematous changes without bolus change. Bilateral micronodules are noted in the largest in the right lower lobe posteriorly measuring 8 x 9 mm. Scattered areas of groundglass attenuation are evident. Apical scarring bilaterally. Within the left upper lobe medially there is a focus of abnormal density measuring 1.7 x 1.6 cm. There is a large area of abnormal density in the left upper lobe posteriorly which is confluent with the hilum maximally measuring 4.3 x 4 cm. Within the right lower lobe medially focus of abnormal density 1.1 x 1 cm. HEART AND PERICARDIUM: Mild cardiomegaly. AORTA: Normal caliber aorta.. PULMONARY ARTERIES: No pulmonary embolism ADENOPATHY/MEDIASTINUM: None. LIMITED VIEWS OF THE ABDOMEN: Nonspecific heterogeneity of the visualized liver. OSSEOUS STRUCTURES: Kyphoplasty changes noted in the visualized spine. No acute rib fractures. OVERLYING SOFT TISSUES: Right Mediport. THYROID: Calcified left thyroid nodule 1.1 x 1 cm. IMPRESSION: Negative for pulmonary embolism. Metastatic disease detailed above relatively unchanged. There are scattered foci of minimal groundglass attenuation which slightly more prominent possibly infectious. Follow-up recommended to assess resolution Reviewed, dictated and finalized at location A. IMPRESSION: Negative for pulmonary embolism. Metastatic disease detailed above relatively u nchanged. There are scattered foci of minimal groundglass attenuation which sli ghtly more prominent possibly infectious. Follow-up recommended to assess resol ution
--- NOTE | ~2024-11-16 | US_ITS ---
EXAMINATION: US venous doppler LE RT, 11/16/2024 18:07 CDT HISTORY: swelling Comparison: None Technique: Banegas-scale and color Doppler images were attempted of the lower saphenofemoral junction, common femoral vein,superficial femoral vein, proximal deep femoral vein, proximal deep femoral vein, popliteal vein and posterior tibial veins. Findings: Deep Venous System:Normal flow, augmentation and compressibility. No echogenic thrombus identified. The contralateral saphenofemoral junction appears unremarkable. Superficial Venous SystemNo superficial thrombophlebitis. Soft tissues: Soft tissues are unremarkable. Impression: Negative for DVT. Reviewed, dictated and finalized at location A. Impression: Negative for DVT.
--- NOTE | ~2024-11-16 | XR_ITS ---
EXAMINATION: XR chest 2V, 11/16/2024 17:10 CDT HISTORY: CP COMPARISON: No comparisons available. Technique: 2 views obtained. Findings: There is a nodule in the left midlung measuring 2.5 x 2.5 cm. COPD changes are noted. No pneumothorax. Heart is normal size. Mediastinal and hilar contours are within normal limits. Kyphoplasty changes of the spine. Right Mediport terminates in the SVC. Impression: Left lung nodule, please refer to the CT obtained previously. Reviewed, dictated and finalized at location A. Impression: Left lung nodule, please refer to the CT obtained previously.
--- NOTE | 2024-11-16 16:21 | ECG_ITS ---
Test Date: 2024-11-16 16:25:20 Measurements Intervals Patten Rate: 79 P: 52 DE: 176 QRS: -58 QRSD: 132 T: 70 QT: 393 QTc: 451 Interpretive Statements SINUS RHYTHM LEFT AXIS DEVIATION BORDERLINE AV CONDUCTION DELAY LEFT BUNDLE BRANCH BLOCK BASELINE ARTIFACT- I, AVR, AVL, V1 ABNORMAL ECG Compared to ECG 08/12/2024 22:50:48 HEART RATE HAS DECREASED Electronically Signed On 11-16-2024 18:40:10 CDT by Jesus Garcia D.O.
[2024-11-16 16:35] LABS: Hematocrit 44.4 % (37.0-47.0); Hemoglobin 14.1 g/dL (12.0-15.0); Mean Corpuscular HGB Conc 31.8 g/dl (32-36); Mean Corpuscular Hemoglobin 34.7 pg (26-34); Mean Corpuscular Volume 109.4 fl (80-100); Platelet Count Result 132 k/mm3 (150-375); Red Blood Count 4.06 M/mm3 (4.2-5.4); White Blood Count 13.3 K/mm3 (4.5-10.0)
[2024-11-16 16:49] LABS: INR 1.2; Prothrombin Time 15.4 Seconds (11.1-14.7)
[2024-11-16 16:50] LABS: Partial Thromboplastin Time 29.7 Seconds (22.3-36.8)
[2024-11-16 16:51] LABS: Alanine Aminotransferase 12 U/L (6-35); Albumin Level 3.7 g/dL (3.5-5.1); Alkaline Phosphatase 84 U/L (38-126); Anion Gap 6 mmol/L (4-12); Aspartate Amino Transferase 359 U/L (14-36); Bilirubin,Total 0.5 mg/dL (0.2-1.3); Blood Urea Nitrogen 19 mg/dL (7-17); Calcium 8.8 mg/dL (8.4-10.2); Carbon Dioxide 27 mmol/L (22-30); Chloride 101 mmol/L (98-107); Estimated CRCL calculation 44 ml/min; Estimated Glomerular Filt Rate > 60; Glucose 126 mg/dL (65-110); Lipase 48 U/L (23-300); Potassium 4.2 mmol/L (3.4-5.0); Sodium 134 mmol/L (137-145); Total Protein 6.5 g/dL (6.3-8.2)
[2024-11-16 17:00] LABS: Troponin I < 0.012 ng/mL (0.000-0.034)
[2024-11-16 17:04] LABS: Band Neutrophils Percent 9 % (0-6); Lymphocytes Absolute Manual 0.53 K/mm3 (1.1-4.5); Lymphocytes Percent Manual 4.0 % (18-44); Monocytes Absolute Manual 1.19 K/mm3 (0.1-0.90); Monocytes Percent Manual 9 % (3-9); Neutrophils Absolute Manual 11.57 K/mm3 (1.3-6.7); Neutrophils Percent Manual 78 % (46-73); Total Cells Counted 100
[2024-11-16 17:05] LABS: Hypochromasia 1+; Macrocytosis 1+ (NORMAL); Schistocytes None Seen
[2024-11-16 17:06] LABS: Anisocytosis 1+
--- OUTSIDE RECORDS SUMMARY | 2024-11-16 18:32 | XMS_ITS | Encounter Summary ---
Author Organization [facility] Healthcare Address [address] [place] [address] Care Team Providers Care Wildlife Policy Professional Name Role Phone Melida Ibarra NP Primary Care Provider Encounter Details Date Type Department Care Team (Late st Contact Info) Description 08/15/2024 Orders Only [facility] Information Management [address] [place] [phone] Scanning, Provider Social History Tobacco Use Types Packs/Day Years Used Date Smoking Tobacco: Former Cigarettes Smokeless Tobacco: Never Comments Unknown Sex and Gender Information Value Date Recorded Sex Assigned at Not on file 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 Gender Identity Not on file Sexual Orientation Not on file documented as of this encounter Plan of Treatment Not on file documented as of this encounter Procedures Procedure Name Priority Date/Time Associated Diagnosis Comments SCAN - RADIOLOGY/IMAGING 08/15/2024 documented in this encounter Results * SCAN - RADIOLOGY/IMAGING (08/15/2024) Anatomical Region Laterality Modality Other us Provider Scanning Final Result documented in this encounter Visit Diagnoses Not on filedocumented in this encounter Care Teams Wildlife Policy Professional Relationship Specialty Start Date End Date Melida Ibarra NP [address] [facility] [address] [place] [address] [place] [address] PCP - General Cardiovascular Disease 07/02/24 documented as of this encounter
--- OUTSIDE RECORDS SUMMARY | 2024-11-16 18:33 | XMS_ITS | Clinical Summary ---
Author Organization [facility] [address] Address [address] [place] [address] Care Team Providers Care Party Plan Sales Unit Advisor Name Role Phone Melida Ibarra NP Primary [...] mg tabletIndications: Lipid screening,Coronary artery disease involving chevak coronary artery of chevak heart without angina pectoris Take 1 tablet [...] Type Department Care Team Description 10/10/2024 Telephone [facility] Cardiology [address] [place] [address] [place] [phone] Susan Hutchinson NP 10/08/2024 Telephone [facility] Cardiology [address] [place] [address] [place] [phone] Regan Peraza MD 09/25/2024 Telephone [facility] Cardiology [address] [place] [address] [place] [phone] Regan Peraza MD 09/06/2024 11:30 AM CDT Office Visit [facility] Cardiology [address] [place] [address] [place] [phone] Susan Hutchinson NP Paroxysmal atrial fibrillation (HCC) (Primary Dx); Chronic anticoagulation; Hospital discharge follow-up; Preoperative cardiovascular examination 08/16/2024 Orders Only [facility] Cardiology [address] [place] [address] [place] [phone] Kayli Doe MD from Last 3 Months Surgical History [...] on file 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
--- OUTSIDE RECORDS SUMMARY | 2024-11-16 18:33 | XMS_ITS | Encounter Summary ---
Author Organization [facility] [employer] Address [address] [place] [address] Care Team Providers Care Family Helper Name Role Phone Freddy Gallagher MD Primary Care Provider Reason for Visit * Reason Onset Date Comments Medication Refill 09/05/2022 Encounter Details Date Type Department Care Team ([facility] Contact Info) Description 09/05/2022 Telephone [facility] Oncology and Hematology - [place] [place] [address] Malik Lewis MD [address] [facility] [address] [place] [address] Medication Refill Social History Tobacco [...] Encounters Date Type Department Care Team ([facility] Contact Info) Description 11/27/2024 4:00 PM CDT Telephone Check Up [facility] Oncology and Hematology - [place] [address] [place] [address] Kimber Poe MD [address] [place] [address] documented as of this encounter Visit Diagnoses Not on filedocumented in this encounter Care Teams Family Helper Relationship Specialty Start Date End Date Freddy Gallagher MD [address] [place] [address] PCP - General Gastroenterology 09/24/19 05/15/24 documented as of this encounter
--- OUTSIDE RECORDS SUMMARY | 2024-11-16 18:33 | XMS_ITS | Encounter Summary ---
Author Organization [facility] Address [address] [place] [address] Care Team Providers Care Spooling Machine Operator Name Role Phone Freddy Gallagher MD Primary Care Provider Encounter Details Date Type Department Care Team (Late Contact Info) Description 03/25/2020 Chart Note [facility] Radiation Therapy [address] [place] [address] [place] [address] [place] [address] Social History Tobacco Use Types [...] COVID-19? 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 documented as of this encounter Plan of Treatment Upcoming Encounters Date Type Department Care Team (Late Contact Info) Description 11/27/2024 4:00 PM CDT Telephone Check Up [facility] Oncology and Hematology - [place] [address] [place] [address] Kimber Poe MD [address] [place] [address] documented as of this encounter Visit Diagnoses Not on filedocumented in this encounter Care Teams Spooling Machine Operator Relationship Specialty Start Date End Date Freddy Gallagher MD [address] [place] [address] PCP - General Gastroenterology 09/24/19 05/15/24 documented as of this encounter
--- OUTSIDE RECORDS SUMMARY | 2024-11-16 18:33 | XMS_ITS | Encounter Summary ---
Author Organization [facility] [employer] Address [address] [place] [address] Care Team Providers Care Telephone Technician Name Role Phone Unavailable Primary Care Provider Unavailabl e Encounter Details Date Type Department Care Team ( Contact Info) Description 11/12/2024 Orders Only [facility] Oncology and Hematology - [place] [address] [place] [address] Malik Lewis MD [address] [facility] [employer] [address] [place] [address] Social History Tobacco Use Types Packs/Day Years Used Date Smoking Tobacco: Some Days Cigarettes 1 41.1 Started: 10/02/2023 Smokeless Tobacco: Never Alcohol Use Standard Drinks/Week Comments Not Currently [...] 11/27/2024 4:00 PM CDT Telephone Check Up [facility] Oncology and Hematology - [place] [address] [place] [address] Kimber Poe MD [address] [place] [address] documented as of this encounter Procedures Procedure Name Priority Date/Time Associated Diagnosis Comments COMPREHENSIVE METABOLIC PANEL Routine 11/11/2024 10:26 AM CDT documented in this encounter Results * COMPREHENSIVE METABOLIC PANEL (11/11/2024 10:26 AM CDT) Blood Malik Lewis MD CHEMISTRY ORDERABLES Final Resu lt documented in this encounter Visit Diagnoses Not on filedocumented in this encounter
--- OUTSIDE RECORDS SUMMARY | 2024-11-16 18:33 | XMS_ITS | Encounter Summary ---
Author Organization [facility] Address [address] [place] [address] Care Team Providers Care Television Cabinet Finisher Name Role Phone Melida Ibarra NP Primary Care Provider Encounter Details Date Type Department Care Team (Late st Contact Info) Description 08/13/2024 Orders Only [facility] Health Information Management [address] [place] [address] Scanning, Provider Social History Tobacco Use Types Packs/Day Years Used Date Smoking Tobacco: Former Cigarettes Smokeless Tobacco: Never Comments Unknown Sex and Gender Information Value Date Recorded Sex Assigned at Not on file 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
--- OUTSIDE RECORDS SUMMARY | 2024-11-16 18:33 | XMS_ITS | Clinical Summary ---
Author Organization [facility] [employer] Address [address] [place] [address] Care Team Providers Care Fruit Harvest Worker Name Role Phone Freddy Gallagher MD Primary Care Provider [phone] Malik Lewis MD Unavailable [phone] Source Comments [facility],non-owned Affiliates and Associated Physician Practices is amultiple site organization consisting of ambulatory clinics and hospital sitesin [place], [place], [place] and [place]. This disclosure is being madepursuant to the Care Everywhere program and may not contain all information available regarding this patient. 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
--- OUTSIDE RECORDS SUMMARY | 2024-11-16 18:33 | XMS_ITS | Clinical Summary ---
Author Organization [facility] [employer] Address [address] [address] Care Team Providers Care Metallurgical Inspector Name Role Phone Unavailable Primary Care Provider Unavailabl e Allergies Active Allergy Reactions Criticality Noted Date Comments Vgygfva-Vqh-Mll Reductase Inhibitors Muscle Pain Low 08/09/2024 Medications [...] 24 hours. Active naloxone (NARCAN) 4 mg/spray [place], Non-Aerosol EMERGENCY USE ONLY: Administer 1 spray [...] 8 HOURS NEEDED 90 Tablet 025 Active sotorasib (Lumakras) 320 mg Tablet Take 3 tablets (960 mg) by mouth daily. 90 Tablet 025 Active sotorasib (Lumakras) 320 mg Tablet Take 3 tablets (960 mg) by mouth daily. 90 Tablet 2 025 2024 Discontinued ALPRAZolam (XANAX) 0.25 mg tabletIndicat ions:Anxiety state TAKE 1 TABLET BY MOUTH EVERY 6 TO 8 HOURS NEEDED 90 Tablet 025 2024 Discontinued ALPRAZolam (XANAX) 0.25 mg tabletIndicat ions:Anxiety state TAKE 1 TABLET BY MOUTH EVERY 6 TO 8 HOURS NEEDED 30 Tablet 025 2024 Discontinued(R eorder) sotorasib (Lumakras) 320 mg Tablet Take 3 tablets (960 mg) by mouth daily. 90 Tablet 1 025 2024 Discontinued Active Problems Problem Noted [...] Encounters Date Type Department Care Team Description 11/13/2024 11:15 AM CDT Office Visit [facility] Oncology and Hematology - [place] [address] [place] [phone] Malik Lewis MD Liver lesion (Primary Dx) 11/13/[address] [facility] Oncology and Hematology - [place] [address] [place] [address] Malik Lewis MD 11/12/[address] [facility] Oncology and Hematology - [place] [address] [place] [address] Malik Lewis MD 11/11/[address] [facility] Oncology and Hematology - [place] [address] [place] [address] Malik Lewis MD Anxiety state 11/06/2024 External Device Data ST[facility] ABSTRACTION Provider, Abstract 11/05/2024 External Device Data ST[facility] ABSTRACTION Provider, Abstract 11/05/[address] [facility] Oncology and Hematology - [place] [address] [place] [address] Malik Lewis MD 10/31/[address] [facility] Oncology and Hematology - [place] [address] [place] [phone] Malik Lewis MD 10/31/2024 Telephone [facility] Imaging Services [facility] [address] [place] [address] [phone] Daria Cason NP Follow Up 10/30/2024 12:48 PM CDT Anesthesia Event [facility] Interventional Radiology [address] [place] [phone] Thom Steele MD Kertz, Maria L, AA-C 10/30/2024 10:09 AM CDT - 10/30/2024 5:33 PM CDT Hospital Encounter [facility] Prepost Imaging [facility] [address] [place] [address] Malik Lewis MD [address], [facility], [facility] Ir Thom Steele MD Compression fracture of T9 vertebra with routine healing, subsequent encounter Discharge Disposition: Home or Self Care 10/25/[address] [facility] Oncology and Hematology - [place] [address] [place] [address] Malik Lewis MD Anxiety state 10/25/[address] [facility] Oncology and Hematology - [place] [address] [place] [phone] Malik Lewis MD Anxiety state 10/10/[address] [facility] Oncology and Hematology - [place] [address] [place] [address] Malik Lewis MD Anxiety state 10/08/2024 9:50 AM CDT - 10/08/2024 11:59 PM CDT Hospital Encounter [facility] [address] [place] [address] Melida Ibarra, [facility] Discharge Disposition: Home or Self Care 10/04/[address] [facility] Oncology and Hematology - [place] [address] [place] [phone] Malik Lewis MD Non-small cell cancer of left lung (CMS/HCC) 09/25/[address] [facility] Oncology and Hematology - [place] [address] [place] [address] Malik Lewis MD Anxiety state 09/17/2024 External Device Data STL ABSTRACTION Provider, Abstract 09/16/2024 1:00 PM CDT Office Visit [facility] Oncology and Hematology - [place] [address] [place] [phone] Malik Lewis MD Non-small cell cancer of left lung (CMS/HCC) (Primary Dx) 09/13/[address] [facility] Oncology and Hematology [facility] [address] [place] [address] Malik Lewis MD 09/10/2024 External Device Data STL ABSTRACTION Provider, Abstract 09/10/2024 External Device Data STL ABSTRACTION Provider, Abstract 08/20/[address] [facility] Oncology and Hematology [address] [place] [address] Malik Lewis MD from Last 3 Months Family History Medical History Relation Name Comments Cancer Father Heart Disease Father Cancer Mother Heart Disease Mother Relation Name Status Comments Brother Alive Father Mother Sister Alive Social History Tobacco Use Types Packs/Day Years Used Date Smoking Tobacco: Some Days Cigarettes 1 41.1 Started: 10/02/2023 Smokeless Tobacco: Never Tobacco Cessation:Ready to Q uit: Yes; Counseling Given: Yes Alcohol Use Standard Drinks/Week Comments Not Currently [...] Sign Reading Time Taken Comments Blood Pressure 142/68 11/13/2024 11:19 AM CDT Pulse 73 11/13/2024 11:13 AM CDT Temperature 36.8 C (98.3 F) 11/13/2024 11:13 AM CDT Respiratory Rate 12 11/13/2024 11:13 AM CDT Oxygen Saturation 98% 11/13/2024 11:13 AM CDT Inhaled Oxygen Concentration - - Weight 59 kg (130 lb) 11/13/2024 11:13 AM CDT Height 172.7 cm (5' 8) 10/30/2024 10:51 AM CDT Body Mass Index 19.77 10/30/2024 10:51 AM CDT Plan of Treatment Upcoming Encounters Date Type Department Care Team (Late st Contact Info) Description 11/27/2024 4:00 PM CDT Telephone Check Up [facility] Oncology and Hematology - [place] [address] [place] [address] Kimber Poe MD [address] [place] [address] Health Maintenance Due Date Last Done Comments DTAP/TDAP/TD VACCINES (1 - Tdap) 1973 PNEUMOCOCCAL VACCINE 50+ YEA RS (1 of 2 - PCV) 1973 Traditional Medicare (ACO) A nnual Wellness Visit 1973 BREAST CANCER SCREENING 1994 COLORECTAL SCREENING 12/24/1999 Colorectal Cancer Screening 12/24/1999 FIT-DNA Q 3 years 12/24/1999 FIT/FOBT Q 1 year 12/24/1999 Flex Sig/CT Colonography Q 5 years 12/24/1999 ZOSTER VACCINE (1 of 2) 2004 RSV VACCINE (60+ or ) (1 - Risk 60-74 years 1-dose series) 2014 OSTEOPOROSIS SCREENING 12/24/2019 INFLUENZA VACCINE (#1) 2024 , 12/15/2022, 12/30/2021, Additional history exists Medical Devices Implanted Type Area Auto Glass Worker Device Identifier Shelf Expiration Date Model / Serial / Lot Mix Kyphon [id number] - [id number] Implanted:Qty : 1 on 10/30/2024 by Matthew Thompson MD at [facility] Cement N/A: Spine Thoracic [employer] - SPINAL fka KYPHON [id number] 07/18/2027 [id number] / / [id number] Procedures Procedure Name Priority Date/Time Associated Diagnosis Comments COMPREHENSIVE METABOLIC PANEL Routine 11/11/2024 10:[address] CHEST W CONTRAST Routine 11/05/2024 9 :55 AM CDT IR SPINAL INTERVENTION Routine 10/30/2024 2:08 PM CDT Compression fracture of T9 vertebra with routine healing, subsequent encounter PATHOLOGY Pathology 10/30/2024 1:45 PM CDT VT ANES INSERT ENDOTRACHEAL AIRWAY Routine 10/30/2024 1:24 PM CDT BASIC METABOLIC PANEL Routine 09/12/2024 8:45 AM CDT CARDIAC EVENT MONITOR Pending Discharge 09/08/2024 5:00 AM CDT from Last 3 Months Results * COMPREHENSIVE METABOLIC PANEL (11/11/2024 10:26 AM CDT) Blood us Malik Lewis MD CHEMISTRY ORDERABLES Final Resu lt * CT CHEST W CONTRAST (11/05/2024 9:55 AM CDT) Anatomical Region Laterality Modality Chest Computed Tomogra phy us Malik Lewis MD CT ORDERABLES Final Result * IR SPINAL INTERVENTION (10/30/2024 2:08 PM CDT) Anatomical Region Laterality Modality Spine X-Ray Angiograph y 10/30/2024 2:10 PM CDT Impressions 10/31/2024 9:52 AM CDT IMPRESSION: 1. Fluoroscopic guided kyphoplasty of T9 and T10. 2. Fluoroscopic-guided T9 vertebral body biopsy. DICTATION LOCATION: Location 1, [facility] Narrative 10/31/2024 9:52 AM CDT 1. FLUOROSCOPIC-GUIDED PERCUTANEOUS [...] vertebral body biopsy. DICTATION LOCATION: Location 1, [facility] Malik Lewis MD IR ORDERABLES Final Result * PATHOLOGY (10/30/2024 1:45 PM CDT) CASE REPORT Surgical Pathology Report Case: [id number] Authorizing Provider: Matthew Thompson MD Collected: 10/30/2024 01:45 PM Ordering Location: [facility] Received: 10/31/2024 07:15 AM Dequan Pathologist: Perla Gayle MD Specimen: Bone, T9 bone 5 4:44 PM CDT [facility] [employer] [facility] FINAL DIAGNOSIS Vertebral body, T9, kyphoplasty with biopsy: - Mild reactive changes and fibrosis, clinical history of fracture. 5 4:44 PM CDT [facility] at 1643 CDT GROSS DESCRIPTION Received [...] decalcified in decal ll at the bench. [facility] 5 4:44 PM T [facility] MICROSCOPIC DESCRIPTION The slides are labeled [id number] and Yessenia Clement. Sections show a bone core with mild reactive changes and fibrosis. The bone marrow shows trilineage hematopoiesis. Pancytokeratin is negative. CD3 and CD20 shows staining within reactive T and B lymphocytes and CD138 shows staining in scattered plasma cells. There is no evidence of acute inflammation, cytologic atypia or an overt malignant process. 5 4:44 PM T [facility] OPERATIVE PROCEDURE T9-T10 kyphoplasty of T9-T10 with biopsy 5 4:44 PM [facility] CLINICAL INFORMATION T9 bone Compression Fracture 5 4:44 PM [facility] COMMENT Special stain, immunohistochemical, and/or in situ hybridization results are interpreted with controls that demonstrate appropriate staining reactions. Note on use of immunohistochemistry reagents and in situ hybridization probes: These tests were developed and their performance characteristics determined by [facility], Department of Laboratory Medicine. It has not [...] part or completely in the following laboratories: [facility], CLIA #[id number] [address] [place] [address] [facility], [place] #[id number] [address] [place] [address] [facility], [place] #[id number] [address] [place] [address] This report was created with the [place] [employer] voice-activated dictation system. Inherent to this system is the possibility of syntax, grammar, punctuation and other errors that could impact the interpretation of the report. If there are interpretative questions about aspects of this report, please contact the performing pathologist. 4:44 PM CDT [facility] Tissue ENTIRE BONE ORGAN / Unknown Collection / Unknown 10/30/2024 1:45 PM CDT 10/31/2024 7:15 AM CDT Comment:T9 bone us Matthew Thompson MD PATHOLOGY/CYTOLOGY ORDERABLES F inal Result [facility]# [id number] [address] [place] [address] * [place] ANES INSERT ENDOTRACHEAL AIRWAY (10/30/2024 1:24 PM [...] BASIC METABOLIC PANEL (09/12/2024 8:45 AM CDT) Blood us Malik Lewis MD CHEMISTRY ORDERABLES Final Resu lt * CARDIAC EVENT MONITOR (09/08/2024 5:00 AM CDT) 09/08/2024 5:00 AM CDT Narrative INTERFACE SYSTEM - 09/13/2024 10:21 AM CDT [facility] [address] [place] [address] Test Date: 2024-09-08 Pat Name: YESSENIA CLEMENT Department: Room: [facility] Gender: Female Shampooer: : 1955 Requested By: AMANUEL Jolley Order Number: [id number] Poli MD: Marquis Ruiz Interpretive Statements Date [...] Procedure Note Marquis Ruiz MD - 09/13/2024 [facility] [address] [place] [address] Test Date: 2024-09-08 Pat Name: YESSENIA CLEMENT Department: Room: 3080 1 Gender: Female Shampooer: : 1955 Requested By: AMANUEL Jolley Order Number: [id number] Reading MD: Marquis Ruiz Interpretive Statements Date [...] On 09-13-2024 10:21:26 CDT by Marquis Ruiz us Damion Guzman DO CARDIAC SERVICES ORDERABLES Final Result INTERFACE SYSTEM Refer to clinic/hospital department from Last 3 Months Insurance MEDICARE PART A AND B [facility] [employer] Medicare Part D MEDICARE PART A AND B [facility] Advance Directives For more information, please contact: [phone] * Full Code (Latest Code Status on File) Date Activated Date Inactivated Comments 10/30/2024 12:09 PM 10/30/2024 7:34 PM * Full Code Date Activated Date Inactivated Comments 08/09/2024 2:42 PM 08/10/2024 6:47 PM
--- OUTSIDE RECORDS SUMMARY | 2024-11-16 18:33 | XMS_ITS | Encounter Summary ---
Author Organization [facility] Address [address] [place] [address] Care Team Providers Care Box Covering Machine Operator Name Role Phone Freddy Gallagher MD Primary Care Provider Melida Ibarra NP Primary Care Provider [phone] Encounter Details Date Type Department Care Team (Late st Contact Info) Description 04/01/2024 Orders Only [facility] Health Information Management [address] [place] [address] Scanning, Provider Social History Tobacco Use Types Packs/Day Years Used Date Smoking Tobacco: Former Cigarettes Comments Unknown Sex and Gender Information Value Date Recorded Sex Assigned at Not on file 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
--- NOTE | 2024-11-16 19:17 | ECG_ITS ---
Test Date: 2024-11-16 19:24:56 Measurements Intervals [place]ry Rate: 77 P: 46 NM: 172 QRS: -76 QRSD: 126 T: 74 QT: 401 QTc: 455 Interpretive Statements SINUS RHYTHM LEFT AXIS DEVIATION LEFT BUNDLE BRANCH BLOCK BASELINE ARTIFACT- I, III, AVR, AVL ABNORMAL ECG Compared to ECG 11/16/2024 16:25:20 NO SIGNIFICANT CHANGE Electronically Signed On 11-17-2024 07:10:03 CDT by Jesus Garcia D.O.
[2024-11-16] MEDS: MORPHINE SULFATE (*CRX) 4 MG/ML INJ IV PUSH (19:38)
[2024-11-16 19:48] LABS: Troponin I < 0.012 ng/mL (0.000-0.034)
--- NOTE | 2024-11-16 20:00 | ED.GENADULT ---
HPI - General Adult General Chief complaint: Chest Pain Stated complaint: CHEST IS GETTING CRUSHED Time Seen by Provider: 11/16/24 17:23 History of Present Illness HPI narrative: Patient is a 68-year-old female who presents ER with central chest pain. Ongoing since this morning. Feels like pressure in the center of her chest. She has been taking oxycodone. No fevers or chills or productive cough. Known history of lung cancer. She is supposed to get a PET scan next week due to a mass in her liver that is new. She reports her oncologist says her lung nodules are stable. She had been on Keytruda. No abdominal discomfort. No history of heart disease. Patient also has edema to the right lower extremity. She reports chronic since July of this year. She is on anticoagulation but has no history DVT but does have history of AFib. Related Data Home Medications ?Medication ?Instructions ?Recorded ?Confirmed ?Last Taken ?Type alprazolam 0.25 mg tablet (Xanax) 0.25 mg PO BID PRN Anxiety 04/30/20 08/26/24 Unknown History diphenhydramine HCl 25 mg capsule 25 mg PO HS 10/14/23 08/26/24 Unknown History (Benadryl) gabapentin 300 mg capsule 300 mg PO HS 10/14/23 08/26/24 Unknown History fluticasone propionate 50 1 spray intranasal DAILY PRN 06/28/24 08/26/24 Unknown History mcg/actuation nasal allergy symptoms spray,suspension ibuprofen 200 mg tablet (Advil) 400 mg PO Q6H PRN fever or pain 06/28/24 08/26/24 08/12/24 History sacubitril 24 mg-valsartan 26 mg 1 tablet PO BID 06/28/24 08/26/24 Unknown History tablet (Entresto) sotorasib 320 mg tablet (Lumakras) 960 mg PO QHS 06/28/24 08/26/24 Unknown History lidocaine 5 % topical patch 2 patch topical DAILY 08/12/24 08/26/24 Unknown History Allergies Allergy/AdvReac Type Severity Reaction Status Date / Time pentazocine (From Anjali) Allergy Irritable Verified 11/16/24 17:19 Review of Systems Review of Systems: All systems reviewed & are unremarkable except as noted in HPI and below Constitutional: Constitutional: Reports no additional constitutional complaints Cardiovascular: Cardiovascular: Reports no additional cardiovascular complaints Respiratory: Respiratory: Reports no additional respiratory complaints Gastrointestinal: Gastrointestinal: Reports no additional gastrointestinal complaints Genitourinary: Genitourinary: Reports no additional female genitourinary complaints [facility] Past Medical History Medical History Chronic anticoagulation Due to atrial fibrillation Paroxysmal atrial fibrillation 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 Hypertension Surgical History Surgical History History of insertion of tunneled central venous catheter (CVC) with port (04/2020) History of laparoscopy History of hysterectomy (1997) History of tonsillectomy (1965) History of cholecystectomy (1998) Family History Family History Grandparent Lung cancer Mother Breast cancer Small bowel cancer FH: kidney cancer Skin cancer Mother No problems noted. Father Skin cancer Social History Social History Social History: Patient lives at home with her of 50 years. She has 1 son. 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 She used to smoke a some much as 2 packs of cigarettes per day and started smoking around age 19. She cut back significantly on her smoking after cancer diagnosis in 2020. She still smokes 1 or 2 cigarettes a day. She denies any history of alcohol use or illicit substance use. Surrogate medical decision maker: Elliott Wallis, spouse Code status: DNR/DNI Smoking packs per day: 0.5 Smoking cigarettes per day: 10.0 Years smoked: 40 Smoking pack-years: 20.00 Smoking status: Current some day smoker Tobacco type: cigarettes Second hand tobacco smoke exposure: No Additional smoking assessment comments: cutting back since diagnosis Alcohol intake: never Substance use: never Substance use type: does not use Do You Feel Safe in your Home?: Yes Lack of Transportation: No Lack of Food: Never True Current Housing: I Have Housing Concerned About Future Housing: No Difficulty Paying Gas/Electric Bills: No Difficulty Paying for Meds: No Currently Unemployed: No Education: Trade/Vocational Certificate Difficulty w/ Childcare or Family Care: No Living arrangements: with family Spiritual care concerns: No Exam Narrative: GENERAL: Well-appearing, well-nourished, and in no acute distress. HEAD: Normocephalic, atraumatic. ENT: Mucous membranes moist. NECK: Supple. CHEST: Clear to auscultation. No respiratory distress. HEART: Regular rate and rhythm. Normal peripheral pulses. ABDOMEN: Soft, nontender, nondistended. EXTREMITIES: Normal range of motion. 2+ edema right lower extremity. SKIN: Warm, dry, no rash. NEURO: Alert and oriented x3. PSYCH: Normal mood and affect. Course Course Emergency Course: Pain felt to be related to pneumonia that is developing. Will give 1st dose antibiotics here and discharged home with oral antibiotics. Recommend follow-up with PCP. No PE or DVT. Vital Signs Vital signs: Vital Signs Pulse Oximetry 80 L 11/16/24 17:17 Oxygen Delivery Room Air 11/16/24 17:17 Pulse Rate 80 11/16/24 19:03 Respiratory Rate 18 11/16/24 19:03 Blood Pressure 111/74 11/16/24 19:03 Pulse Oximetry 97 11/16/24 19:03 Oxygen Delivery Room Air 11/16/24 17:17 Medical Decision Making Vital Signs Vital Signs: Vital Signs Pulse Oximetry 80 L 11/16/24 17:17 Oxygen Delivery Room Air 11/16/24 17:17 Pulse Rate 80 11/16/24 19:03 Respiratory Rate 18 11/16/24 19:03 Blood Pressure 111/74 11/16/24 19:03 Pulse Oximetry 97 11/16/24 19:03 Oxygen Delivery Room Air 11/16/24 17:17 Lab Data 11/16/24 16:28 11/16/24 16:28 Labs: Lab Results 11/16/24 11/16/24 Range/Units 16:28 19:20 WBC 13.3 H (4.5-10.0) K/mm3 RBC 4.06 L (4.2-5.4) M/mm3 Hgb 14.1 (12.0-15.0) g/dL Hct 44.4 (37.0-47.0) % MCV 109.4 H (80-100) fl MCH 34.7 H (26-34) pg MCHC 31.8 L (32-36) g/dl RDW 13.6 (11.5-14.5) % Plt Count 132 L (150-375) k/mm3 MPV 9.4 (7.4-10.4) fl Immature Gran % (Auto) Not Reportable Neut % (Auto) Not Reportable Lymph % (Auto) Not Reportable Cocke % (Auto) Not Reportable Eos % (Auto) Not Reportable Baso % (Auto) Not Reportable Lymph # (Auto) Not Reportable Cocke # (Auto) Not Reportable Eos # (Auto) Not Reportable Baso # (Auto) Not Reportable Abs Immat Gran (auto) Not Reportable Absolute Neuts (auto) Not Reportable Absolute Nucleated RBC Not Reportable Total Counted 100 Neutrophils % (Manual) 78 H (46-73) % Band Neutrophils % 9 H (0-6) % Lymphocytes % (Manual) 4.0 L (18-44) % Monocytes % (Manual) 9 (3-9) % Nucleated RBC % Not Reportable Abs Neuts (Manual) 11.57 H (1.3-6.7) K/mm3 Abs Lymphs (Manual) 0.53 L (1.1-4.5) K/mm3 Abs Monocytes (Manual) 1.19 H (0.1-0.90) K/mm3 Platelet Estimate Slightly decreased (Adequate) Hypochromasia 1+ Anisocytosis 1+ Macrocytosis 1+ (NORMAL) Schistocytes None seen PT 15.4 H (11.1-14.7) Seconds INR 1.2 APTT 29.7 (22.3-36.8) Seconds Sodium 134 L (137-145) mmol/L Potassium 4.2 (3.4-5.0) mmol/L Chloride 101 (98-107) mmol/L Carbon Dioxide 27 (22-30) mmol/L Anion Gap 6 (4-12) mmol/L BUN 19 H (7-17) mg/dL Creatinine 0.87 (0.7-1.0) mg/dL Estim Creat Clear Calc 44 ml/min Estimated GFR > 60 (59 - ) Glucose 126 H (65-110) mg/dL Calcium 8.8 (8.4-10.2) mg/dL Total Bilirubin 0.5 (0.2-1.3) mg/dL AST 359 H (14-36) U/L ALT 12 (6-35) U/L Alkaline Phosphatase 84 (38-126) U/L Troponin I < 0.012 < 0.012 (0.000-0.034) ng/mL Total Protein 6.5 (6.3-8.2) g/dL Albumin 3.7 (3.5-5.1) g/dL Lipase 48 (23-300) U/L Imaging Data Radiologist's impression: ITS Impressions Chest X-Ray 11/16/24 17:20 Impression: Left lung nodule, please refer to the CT obtained previously. Chest CTA 11/16/24 18:41 IMPRESSION: Negative for pulmonary embolism. Metastatic disease detailed above relatively unchanged. There are scattered foci of minimal groundglass attenuation which slightly more prominent possibly infectious. Follow-up recommended to assess resolution Venous Doppler Study 11/16/24 18:41 Impression: Negative for DVT. Discharge Plan Discharge Clinical Impression: Pneumonia Patient Disposition: Home Condition: Stable Instructions: Pneumonia (ED) Additional Instructions: Please return to the emergency department if you develop severe and persistent chest pain, difficulty breathing, dizziness, leg swelling or if you are coughing up blood as these can be signs of a medical emergency. Please call your doctor for a follow up appointment to determine the need for further testing. Patient Language: Romansh Prescriptions: New doxycycline hyclate 100 mg tablet 100 mg PO BID Qty: 10 0RF amoxicillin-pot clavulanate 875-125 mg tablet 1 tablet PO Q12H Qty: 10 0RF No Action levalbuterol tartrate [Xopenex HFA] 45 mcg/actuation HFA aerosol inhaler 2 inh inhalation Q6H Qty: 15 1RF Entresto 24-26 mg tablet 1 tablet PO BID Lumakras 320 mg tablet 960 mg PO QHS ibuprofen [Advil] 200 mg tablet 400 mg PO Q6H PRN (Reason: fever or pain) alprazolam [Xanax] 0.25 mg Tablet 0.25 mg PO BID PRN (Reason: Anxiety) gabapentin 300 mg Capsule 300 mg PO HS diphenhydramine HCl [Benadryl] 25 mg Capsule 25 mg PO HS Eliquis 5 mg Tablet 5 mg PO Q12HR Qty: 60 1RF metoprolol succinate [Toprol XL] 25 mg Tablet Extended Release 24 Hr 25 mg PO QAM Qty: 30 0RF fluticasone propionate 50 mcg/actuation spray,suspension 1 spray INTRANASAL DAILY PRN (Reason: allergy symptoms) lidocaine 5 % adhesive patch,medicated 2 patch topical DAILY Rx Instructions: leave on most painful area for up to 12 hr on ribs and back amiodarone [Pacerone] 200 mg Tablet 200 mg PO DAILY@0800 Qty: 30 0RF Trelegy Ellipta 100-62.5-25 mcg blister with device 1 inh inhalation Q24H Qty: 60 1RF oxycodone 5 mg tablet 5 mg PO Q6H PRN (Reason: pain) Qty: 90 0RF Follow-up/Referrals: Melida Ibarra SUPERVISOR [employer]ULT [employer]UCATION-[employer] [Primary Care Provider, Internal Medicine]
[2024-11-16] MEDS: DOXYCYCLINE HYCLATE 100 MG TABLET PO (20:33)
== END 2024-11-16 21:07 | disposition home or self-care (01) ==
PROVIDERS: Emergency Provider Emergency Medicine; PCP Clinical Nurse Specialist
DX: J18.9 Pneumonia, unspecified organism (principal); C34.92 Malignant neoplasm of unspecified part of left bronchus or lung; I48.0 Paroxysmal atrial fibrillation; I10 Essential (primary) hypertension; R60.0 Localized edema; F41.9 Anxiety disorder, unspecified; F17.210 Nicotine dependence, cigarettes, uncomplicated; Z66 Do not resuscitate; Z92.21 Personal history of antineoplastic chemotherapy; Z92.3 Personal history of irradiation; Z90.710 Acquired absence of both cervix and uterus; Z90.49 Acquired absence of other specified parts of digestive tract; Z79.01 Long term (current) use of anticoagulants; I44.7 Left bundle-branch block, unspecified; R94.31 Abnormal electrocardiogram [ECG] [EKG]
CPT/HCPCS: 36415; 71046; 71275; 80053; 83690; 84484; 85025; 85610; 85730; 93005; 93971; 96374; 99284; A9270; J2270; Q9967

== ENCOUNTER 2024-11-19 11:55 | Outpatient (CLI) | payer MEDICARE, OTHER, SELFPAY ==
--- OUTSIDE RECORDS SUMMARY | 2000-07-17 11:30 | XMS_ITS | Continuity of Care Document ---
Author Organization [facility] Address [address] [facility] [address] [place] [address] Phone Care Team Providers Care Manager Safe Name Role Phone Beronica Morgan Unavailable Unavailable Advance Directives Directive Yes / No Effective Date File Name No Information Encounters Encounter Description Practice Location Reason(s) For Visit Diagnoses Date Provider Providers Copied on Encounter [facility], [address], [place], [place], [id number], [place] tel:[phone] [facility] No Information Apr-3 0-200 1 Cathy Loco. [address] [facility] , [address], [place], [address], [place]. tel:[phone] Family History Family Member Type Diagnosis Age [...]
--- NOTE | ~2024-11-19 | PE_ITS ---
EXAMINATION: PET skull to mid thigh DATE: 11/19/2024 15:31 INDICATION: Malignant lung neoplasm of the left upper lobe TECHNIQUE: Blood glucose level was 96 mg/dL. 11.103 mCi of 18-fluorodeoxyglucose (18-FDG) was administered i.v. Low dose computed tomography (CT) images were acquired from the base of the brain to the proximal thighs for attenuation correction and anatomic localization. Positron emission tomography (PET) images were acquired in the same distribution beginning 54 minutes after injection. Images including fused PET/CT images were reconstructed in axial, coronal, and sagittal planes. Automated exposure control technique was employed. The dose- length product was 664.65mGy-cm. COMPARISON: Chest CT dated 11/16/2024 and PET/CT dated 10/12/2023 FINDINGS: Head/neck: There is symmetric increased activity in the oral cavity, submandibular glands, laryngeal muscles and ocular muscles without CT correlate, likely physiologic. No pathologically enlarged cervical lymphadenopathy or suspicious foci of increased FDG uptake in the visualized head or neck. Chest: Decrease in size since the prior PET/CT of a previously 5.3 x 4.8 cm, currently 3.7 x 2.6 cm FDG avid mass at the posterior lingula which abuts the major fissure and with maximal SUV of 7.1 consistent with biopsy-proven primary bronchogenic carcinoma. There is also been some decrease in size of a previously 1.8 x 1.6 cm, currently 1.7 x 1.2 cm FDG avid spiculated paramediastinal left upper lobe nodule with maximal SUV of 5.7. Interval increase in size of a previously 4 mm, currently 7 mm nodule more anteroinferiorly in the lingula with minimal FDG uptake with maximal SUV of 1.1 which given the interval growth and minimal uptake raises concern for new metastatic disease. There are several additional unchanged subcentimeter pulmonary nodules with smooth margins in the bilateral lower lungs, the largest the right lower lobe measuring up to 9 mm and which are without increased FDG uptake and most likely sequela of old granulomatous disease. There are calcified right middle lobe nodules and calcified right hilar lymph nodes consistent with old granulomatous disease. Very small right pleural effusion with mild dependent compressive atelectasis in the right lower lobe. Heart size is normal. No pericardial effusion. Thoracic aorta is normal in caliber. Right internal jugular central venous port catheter with distal tip at the caudal superior vena cava. There is mild right hilar lymphadenopathy better distinguish from the adjacent vasculature on the recent prior postcontrast CT of the chest with increased FDG uptake with maximal SUV of 4.3. There are couple additional small FDG avid left infrahilar lymph nodes situated amongst the basilar pulmonary arteries and veins of the right lower lobe certainly better appreciated on prior CT and with maximal SUV of 3.8. Abdomen/pelvis/proximal thighs: 2.5 cm hypodense mass in the left hepatic lobe with prominent increased FDG uptake with maximal SUV of 7.6 consistent with metastatic disease. Cholecystectomy clips at gallbladder fossa. Physiologic renal accumulation and excretion of FDG activity in the kidneys, bladder and along portions of ureters. The pancreas, spleen and bilateral adrenal glands are normal. Mild uptake scattered throughout the bowels without radiologic correlate, also likely physiologic. The uterus is not identified and has likely been surgically resected. No other abnormal foci of increased FDG uptake or pathologically enlarged lymphadenopathy in the abdomen, pelvis or proximal thighs. Musculoskeletal: Again seen are chronic T9 and T10 compression fractures, both with change of prior vertebroplasty and some associated mild increased FDG uptake. There is increased FDG uptake associated with the right transverse process of T10 which without radiologic correlate which could be metastatic or potentially related to response to relatively recent prior vertebroplasty. No other suspicious lytic, blastic or abnormally FDG avid bone lesions. IMPRESSION: 1. Mild increased uptake associated with a 3.7 x 2.6 m mass at the lingula and 1.7 x 1.2 cm left upper lobe nodule the former corresponds to the biopsied mass demonstrating primary bronchogenic carcinoma. Both lesions have decreased in size since the prior PET/CT consistent with response to treatment. 2. Increase in size of a previously 4 mm, currently 7 mm lingular nodule with minimal increased FDG uptake which could be either metastatic or infectious/inflammatory in etiology. 3. Increased FDG uptake such with mild right hilar and infrahilar lymphadenopathy which similarly could be reactive or metastatic. 4. New 2.5 cm FDG avid mass in the left hepatic lobe consistent with metastatic disease. 5. Increased uptake at the T9 and T10 vertebral bodies likely related to compression fractures with recent vertebral plasties at both levels. Additional asymmetric increased uptake at the right transverse process of T9 is without radiologic correlate and could be either metastatic or response to the prior vertebroplasty. Reviewed, dictated and finalized at location A. IMPRESSION: 1. Mild increased uptake associated with a 3.7 x 2.6 m mass at the lingula and 1.7 x 1.2 cm left upper lobe nodule the former corresponds to the biopsied mass demonstrating primary bronchogenic carcinoma. Both lesions have decreased in s ize since the prior PET/CT consistent with response to treatment. 2. Increase in size of a previously 4 mm, currently 7 mm lingular nodule with m inimal increased FDG uptake which could be either metastatic or infectious/infl ammatory in etiology. 3. Increased FDG uptake such with mild right hilar and infrahilar lymphadenopat hy which similarly could be reactive or metastatic. 4. New 2.5 cm FDG avid mass in the left hepatic lobe consistent with metastatic disease. 5. Increased uptake at the T9 and T10 vertebral bodies likely related to compre ssion fractures with recent vertebral plasties at both levels. Additional asymm etric increased uptake at the right transverse process of T9 is without radiolo gic correlate and could be either metastatic or response to the prior vertebrop lasty.
--- OUTSIDE RECORDS SUMMARY | 2024-11-19 12:08 | XMS_ITS | Encounter Summary ---
Author Organization [facility] Healthcare Address [address] [place] [address] Care Team Providers Care Rolled Materials Worker Name Role Phone Freddy Gallagher MD Primary Care Provider Melida Ibarra NP Primary Care Provider [phone] Encounter Details Date Type Department Care Team (Late st Contact Info) Description 04/01/2024 Orders Only [facility] [place] Health Information Management [address] [place] [id number] Scanning, Provider Social History Tobacco Use Types Packs/Day Years Used Date Smoking Tobacco: Former Cigarettes Comments Unknown Sex and Gender Information Value Date Recorded Sex Assigned at Not on file 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
--- OUTSIDE RECORDS SUMMARY | 2024-11-19 12:08 | XMS_ITS | Encounter Summary ---
Author Organization [facility] Healthcare Address [address] [place] [address] Care Team Providers Care Food And Beverage Assistant Name Role Phone Melida Ibarra NP Primary Care Provider Encounter Details Date Type Department Care Team (Late st Contact Info) Description 08/13/2024 Orders Only [facility] [place] Health Information Management [address] [place] [id number] Scanning, Provider Social History Tobacco Use Types Packs/Day Years Used Date Smoking Tobacco: Former Cigarettes Smokeless Tobacco: Never Comments Unknown Sex and Gender Information Value Date Recorded Sex Assigned at Not on file 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
--- OUTSIDE RECORDS SUMMARY | 2024-11-19 12:08 | XMS_ITS | Encounter Summary ---
Author Organization [facility] Healthcare Address [address] [place] [address] Care Team Providers Care Manager Agency Name Role Phone Melida Ibarra NP Primary Care Provider [phone] Encounter Details Date Type Department Care Team (Late st Contact Info) Description 08/15/2024 Orders Only [facility] [place] Health Information Management [address] [place] [id number] Scanning, Provider Social History Tobacco Use Types Packs/Day Years Used Date Smoking Tobacco: Former Cigarettes Smokeless Tobacco: Never Comments Unknown Sex and Gender Information Value Date Recorded Sex Assigned at Not on file 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
--- OUTSIDE RECORDS SUMMARY | 2024-11-19 12:09 | XMS_ITS | Encounter Summary ---
Author Organization [facility] [employer] Address [address] [place] [address] Care Team Providers Care Stud Master/Mistress Name Role Phone Freddy Gallagher MD Primary Care Provider Reason for Visit * Reason Onset Date Comments Medication Refill 09/05/2022 Encounter Details Date Type Department Care Team ([facility] Contact Info) Description 09/05/2022 Telephone [facility] Oncology and Hematology - [place] [address] [place] [address] Malik Lewis MD [address] [facility] [address] [place] [address] Medication Refill Social History Tobacco [...] Upcoming Encounters Date Type Department Care Team ([facility] Contact Info) Description 11/27/2024 4:00 PM CDT Telephone Check Up [facility] Oncology and Hematology - [place] [address] [place] [address] Kimber Poe MD [address] [place] [address] documented as of this encounter Visit Diagnoses Not on filedocumented in this encounter Care Teams Stud Master/Mistress Relationship Specialty Start Date End Date Freddy Gallagher MD [address] [place] [address] PCP - General Gastroenterology 09/24/19 05/15/24 documented as of this encounter
--- OUTSIDE RECORDS SUMMARY | 2024-11-19 12:09 | XMS_ITS | Clinical Summary ---
Author Organization [facility] Forrest Reddyedward Address [address] [place] [address] Care Team Providers Care Cloth Hauler Name Role Phone Unavailable Primary Care Provider Unavailabl e Allergies Active Allergy Reactions Criticality Noted Date Comments Szyhunz-Cmt-Ydp Reductase Inhibitors Muscle Pain Low 08/09/2024 Medications [...] 24 hours. Active naloxone (NARCAN) 4 mg/spray [place], Non-Aerosol EMERGENCY USE ONLY: Administer 1 [...] Description 11/13/2024 11:15 AM CDT Office Visit [facility] Oncology and Hematology - [place] [address] [place] [phone] Malik Lewis MD Liver lesion (Primary Dx) 11/13/2024 Refill [facility] Oncology and Hematology - [place] [address] [place] [address] Malik Lewis MD 11/12/2024 Orders Only [facility] Oncology and Hematology - [place] [address] [place] [address] Malik Lewis MD 11/11/2024 Refill [facility] Oncology and Hematology - [place] [address] [place] [address] Malik Lewis MD Anxiety state 11/06/2024 External Device Data STL ABSTRACTION Provider, Abstract 11/05/2024 External Device Data STL ABSTRACTION Provider, Abstract 11/05/2024 Orders Only [facility] Oncology and Hematology - [place] [address] [place] [address] Malik Lewis MD 10/31/2024 Refill [facility] Oncology and Hematology - [place] [address] [place] [phone] Malik Lewis MD 10/31/2024 Telephone [facility] Imaging Services [facility] [address] [place] [address] [place] [phone] Daria Cason NP Follow Up 10/30/2024 12:48 PM CDT Anesthesia Event [facility] Interventional Radiology [address] [place] [address] [place] [phone] Thom Steele MD Kertz, Maria L, AA-C 10/30/2024 10:09 AM CDT - 10/30/2024 5:33 PM CDT Hospital Encounter [facility] Prepost Imaging [facility] [address] [place] [address] Malik Lewis MD [address], [address] Prepost [place], [facility] Ir Thom Steele MD Compression fracture of T9 vertebra with routine healing, subsequent encounter Discharge Disposition: Home or Self Care 10/25/2024 Refill [facility] Oncology and Hematology - [place] [address] [place] [address] Malik Lewis MD Anxiety state 10/25/2024 Refill [facility] Oncology and Hematology - [place] [address] [place] [address] Malik Lewis MD Anxiety state 10/10/2024 Refill [facility] Oncology and Hematology - [place] [address] [place] [address] Malik Lewis MD Anxiety state 10/08/2024 9:50 AM CDT - 10/08/2024 11:59 PM CDT Hospital Encounter [facility] [address] [place] [address] Melida Ibarra, [facility] Discharge Disposition: Home or Self Care 10/04/2024 Refill [facility] Oncology and Hematology - [place] [address] [place] [address] Malik Lewis MD Non-small cell cancer of left lung (CMS/HCC) 09/25/2024 Refill [facility] Oncology and Hematology - [place] [address] [place] [address] Malik Lewis MD Anxiety state 09/17/2024 External Device Data STL ABSTRACTION Provider, Abstract 09/16/2024 1:00 PM CDT Office Visit [facility] Oncology and Hematology - [place] [address] [place] [address] Malik Lewis MD Non-small cell cancer of left lung (CMS/HCC) (Primary Dx) 09/13/2024 Orders Only [facility] Oncology and Hematology [facility] [address] [place] [address] Malik Lewis MD 09/10/2024 External Device Data STL ABSTRACTION Provider, Abstract 09/10/2024 External Device Data STL ABSTRACTION Provider, Abstract 08/20/2024 Refill [facility] Oncology and Hematology [place] [address] [place] [address] Malik Lewis MD from Last 3 Months [...] 11/27/2024 4:00 PM CDT Telephone Check Up [facility] Oncology and Hematology - [place] [address] [place] [address] Kimber Poe MD [address] [place] [address] Health Maintenance Due Date Last [...] history exists Medical Devices Implanted Type Area Sports Nutritionist Device Identifier Shelf Expiration Date Model / Serial / Lot Mix Kyphon Cx01b - [id number] Implanted:Qty : 1 on 10/30/2024 by Matthew Thompson MD at [facility] Cement N/A: Spine Thoracic [employer] - SPINAL fka KYPHON [id number] 07/18/2027 CX01B / / [id number] Procedures Procedure Name Priority Date/Time Associated Diagnosis Comments COMPREHENSIVE METABOLIC PANEL Routine 11/11/2024 10:[address] CHEST W CONTRAST Routine 11/05/2024 9 :55 AM CDT IR SPINAL INTERVENTION Routine 10/30/2024 2:08 PM CDT Compression fracture of T9 vertebra with routine healing, subsequent encounter PATHOLOGY Pathology 10/30/2024 1:45 PM CDT OR ANES INSERT ENDOTRACHEAL AIRWAY Routine 10/30/2024 1:24 [...] vertebral body biopsy. DICTATION LOCATION: Location 1, [facility] Narrative 10/31/2024 9:52 AM CDT 1. FLUOROSCOPIC-GUIDED [...] vertebral body biopsy. DICTATION LOCATION: Location 1, [facility] Malik Lewis MD IR ORDERABLES Final Result * PATHOLOGY (10/30/2024 1:45 PM CDT) CASE REPORT Surgical Pathology Report Case: [id number] Authorizing Provider: Matthew Thompson MD Collected: 10/30/2024 01:45 PM Ordering Location: [facility] Received: 10/31/2024 07:15 AM Dequan Pathologist: Perla Gayle MD Specimen: Bone, T9 bone 5 4:44 PM CDT [facility] FINAL DIAGNOSIS Vertebral body, T9, kyphoplasty with biopsy: - Mild reactive changes and fibrosis, clinical history of fracture. 5 4:44 PM CDT [facility] at 1643 CDT GROSS DESCRIPTION Received in [...] decalcified in decal ll at the bench. [facility] 5 4:[address] [facility] MICROSCOPIC DESCRIPTION The slides are labeled [id number] and Yessenia Clement. Sections show a bone core with mild reactive changes and fibrosis. The bone marrow shows trilineage hematopoiesis. Pancytokeratin is negative. CD3 and CD20 shows staining within reactive T and B lymphocytes and CD138 shows staining in scattered plasma cells. There is no evidence of acute inflammation, cytologic atypia or an overt malignant process. 5 4:[address] [facility] OPERATIVE PROCEDURE T9-T10 kyphoplasty of T9-T10 with biopsy 5 4:44 PM [facility] CLINICAL INFORMATION T9 bone Compression Fracture 5 4:44 PM [facility] COMMENT Special stain, immunohistochemical, and/or in situ hybridization results are interpreted with controls that demonstrate appropriate staining reactions. Note on use of immunohistochemistry reagents and in situ hybridization probes: These tests were developed and their performance characteristics determined by [facility], Department of Laboratory Medicine. It has [...] part or completely in the following laboratories: [facility], CLIA #[id number] [address] [place] [address] [facility], [place] #[id number] [address] [place] [address] [facility], [place] #[id number] [address] [place] [address] This report was created with the Purple Blue Bo voice-activated dictation system. Inherent to this system is the possibility of syntax, grammar, punctuation and other errors that could impact the interpretation of the report. If there are interpretative questions about aspects of this report, please contact the performing pathologist. 4:[address] 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: : 1955 Requested By: AMANUEL Jolley Order Number: [id number] Poli MD: Marquis Ruiz Interpretive Statements Date [...] CDT by Marquis Ruiz Procedure Note Marquis Ruzi MD - 09/13/2024 [facility] [address] [place] [address] Test Date: 2024-09-08 Pat Name: YESSENIA CLEMENT Department: Room: 3080 1 Gender: Female Coal Deliverer: : 1955 Requested By: AMANUEL Jolley Order Number: [id number] Reading MD: Marquis Ruiz Interpretive Statements Date [...] Insurance MEDICARE PART A AND B PHYSICIANS [facility] RX [employer] Medicare Part D MEDICARE PART A AND B [facility] Affairs [facility] Address: [facility] [address] [id number] Advance Directives For more information, please contact: [phone] * Full Code (Latest Code Status on File) Date Activated Date Inactivated Comments 10/30/2024 12:09 PM 10/30/2024 7:34 PM * Full Code Date Activated Date Inactivated Comments 08/09/2024 2:42 PM 08/10/2024 6:47 PM
--- OUTSIDE RECORDS SUMMARY | 2024-11-19 12:09 | XMS_ITS | Clinical Summary ---
Author Organization [facility] [employer] Address [address] [place] [address] Care Team Providers Care Company Laborer Name Role Phone Freddy Gallagher MD Primary Care Provider Malik Lewis MD Unavailable Source Comments [facility],non-owned Affiliates and Associated Physician Practices is amultiple site organization consisting of ambulatory clinics and hospital sitesin [place], [place], [place] and [place]. This disclosure is being madepursuant to the Care Everywhere program and may not contain all information available regarding this patient. 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 Gender Identity Not on file Sexual Orientation Not on file Last Filed Vital Signs Vital Sign Reading Time Taken Comments Blood Pressure 122/73 11/01/2023 3:03 PM CDT Pulse 66 11/01/2023 3:03 PM CDT Temperature 36.6 C (97.8 F) 11/01/2023 3:03 PM CDT Respiratory Rate 20 02/03/2016 4:24 PM REAL ESTATE DIRECTOR Oxygen Saturation 96% 11/01/2023 3:03 PM CDT [...] Insurance MEDICARE MEDICARE [employer] Care Teams Company Laborer Relationship Specialty Start Date End Date Freddy Gallagher MD [address] [place] [phone] PCP - General 01/28/20 Malik Lewis MD [address] [address] Medical Oncology 01/11/24
--- OUTSIDE RECORDS SUMMARY | 2024-11-19 12:09 | XMS_ITS | Encounter Summary ---
Author Organization [facility] Address [address] [place] [address] Care Team Providers Care Networking Technician Name Role Phone Freddy Gallagher MD Primary Care Provider Encounter Details Date Type Department Care Team (Late Contact Info) Description 03/25/2020 Chart Note [facility] Radiation Therapy [address] [place] [address] [place] [address] [place] [address] Social History Tobacco Use Types [...] COVID-19? 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 documented as of this encounter Plan of Treatment Upcoming Encounters Date Type Department Care Team (Late Contact Info) Description 11/27/2024 4:00 PM CDT Telephone Check Up [facility] Oncology and Hematology - [place] [address] [place] [address] Kimber Poe MD [address] [place] [address] documented as of this encounter Visit Diagnoses Not on filedocumented in this encounter Care Teams Networking Technician Relationship Specialty Start Date End Date Freddy Gallagher MD [address] [place] [address] PCP - General Gastroenterology 09/24/19 05/15/24 documented as of this encounter
--- OUTSIDE RECORDS SUMMARY | 2024-11-19 12:09 | XMS_ITS | Clinical Summary ---
Author Organization [facility] [address] Address [address] [place] [address] Care Team Providers Care Skid Wrapper Name Role Phone Melida Ibarra NP Primary Care Provider [phone] Allergies Active Allergy Reactions Criticality Noted Date [...] mg tabletIndications: Lipid screening,Coronary artery disease involving [place]western [place]one coronary artery of [place]western [place]one heart without angina pectoris Take 1 tablet [...] Type Department Care Team Description 10/10/2024 Telephone [facility] Cardiology [address] [place] [address] [address] [place] [address] Susan Hutchinson NP 10/08/2024 Telephone [facility] Cardiology [address] [place] [address] [address] [place] [address] Regan Peraza MD 09/25/2024 Telephone [facility] Cardiology [address] [place] [address] [place] [address] Regan Peraza MD 09/06/2024 11:30 AM CDT Office Visit [facility] Cardiology [address] [place] [address] [address] [place] [address] Susan Hutchinson NP Paroxysmal atrial fibrillation (HCC) (Primary Dx); Chronic anticoagulation; Hospital discharge follow-up; Preoperative cardiovascular examination from Last 3 Months Surgical History Surgery [...] on file Legal 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 [address] [place] [address] PCP - General Cardiovascular Disease 07/02/24
== END 2024-11-19 11:56 | disposition home or self-care (01) ==
PROVIDERS: PCP Clinical Nurse Specialist; Visit Provider Internal Medicine Hematology & Oncology
DX: C34.12 Malignant neoplasm of upper lobe, left bronchus or lung (principal)
CPT/HCPCS: 78815; A9552

== ENCOUNTER 2025-01-10 10:04 | Outpatient (CLI) | payer MEDICARE, OTHER, SELFPAY ==
--- OUTSIDE RECORDS SUMMARY | 2025-01-10 10:24 | XMS_ITS | Encounter Summary ---
Author Organization [facility] Address [address] [place] [address] Care Team Providers Care Clinical Lab Clerk Name Role Phone Freddy Gallagher MD Primary Care Provider Melida Ibarra NP Primary Care Provider [phone] Encounter Details Date Type Department Care Team (Late st Contact Info) Description 04/01/2024 Orders Only [facility] Health Information Management [address] [place] [address] Scanning, Provider Social History Tobacco Use Types Packs/Day Years Used Date Smoking Tobacco: Former Cigarettes Comments Unknown Sex and Gender Information Value Date Recorded Sex Assigned at Not on file Legal Sex Female 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
--- OUTSIDE RECORDS SUMMARY | 2025-01-10 10:24 | XMS_ITS | Clinical Summary ---
Author Organization [facility] Address [address] [place] [address] Care Team Providers Care Academic Administrator Name Role Phone Freddy Gallagher MD Primary Care Provider [phone] Malik Lewis MD Unavailable [phone] Source Comments [facility],non-owned Affiliates and Associated Physician Practices is amultiple site organization consisting of ambulatory clinics and hospital sitesin [place], [place], [place] and [place]. This disclosure is being madepursuant to the Care Everywhere program and may not contain all information available regarding this patient. Last updated 17.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 Gender Identity Not on file Sexual Orientation Not on file Last Filed Vital Signs Vital Sign Reading Time Taken Comments Blood Pressure 122/73 11/01/2023 3:03 PM CDT Pulse 66 11/01/2023 3:03 PM CDT Temperature 36.6 C (97.8 F) 11/01/2023 3:03 PM CDT Respiratory Rate 20 02/03/2016 4:24 PM ECOLOGIST TECHNICIAN Oxygen Saturation 96% 11/01/2023 3:03 PM CDT [...] 2004 ZOSTER VACCINE (1 of 2) 2004 DEPRESSION SCREENING 03/20/2024 COVID-19 VACCINE (1 - 2023-2 5 season) 2024 INFLUENZA VACCINE (#1) 2024 LIPID TESTING 01/09/2029 [...] Insurance MEDICARE MEDICARE [employer] Care Teams Academic Administrator Relationship Specialty Start Date End Date Freddy Gallagher MD [address] [place] [phone] PCP - General 01/28/20 Malik Lewis MD [address] [address] Medical Oncology 01/11/24
--- OUTSIDE RECORDS SUMMARY | 2025-01-10 10:24 | XMS_ITS | Data Portability ---
Author Organization [facility] Address [address] [place] [address] Assessment No assessment recorded. Plan of Treatment Reminders Order Date Submit Date Provider Last Modified By Organization Details Last Modified Time Details Appointments None recorded. Lab CMP, serum or plasma 2019 [facility], [address] [place] [address], [address], [place], [address], 0 07:08:45 CBC 2019 [facility], [address] [place] [address], [address], [place], [address], 0 07:08:46 lipid panel, serum 2019 [facility], [address] [place] [address], [address], [place], [address], 0 07:08:46 TSH, ultra-sens itive, serum 2019 [facility], [address] [place] [address], [address], [place], [address], 0 14:50:00 TSH + free T4, serum 2019 [facility], [address] [place] [address], [address], [place], [address], 0 07:08:45 T3, free, serum or plasma 2019 020 [facility], [address] [facility] [address], [address], [place], [address], 0 07:08:47 Referral None recorded. Procedures None recorded. Surgeries None recorded. Imaging None recorded. Medication Orders lisinopril 5 mg tablet 2021 022 [id number], [address], [place], [place], [id number], 2 16:31:34 lisinopril 5 mg tablet 2019 020 [facility] #[id number], [address], [place], [place], [id number], 0 13:02:45 hydroxyzin e HCl 25 mg tablet 2019 020 [facility] #[id number], [address], [place], [place], [id number], 2 15:58:36 hydrochlor othiazide 12.5 mg capsule 2019 [facility], [address] [place], [address], 0 12:10:54 Patient TargetsNo targets recorded. Patient Instructions Encounter Date Encounter Id Patient Instructions Last Modified By Organization Details Last Modified Time 08/18/2022 [id number] learning about high blood pressure [email or web address] Not available 08/18/2022 13:29:19 Reason for Referral None Reported. Results Created Date Observation Date Name Description Value Unit Range Abnormal Flag Note LastModifiedBy Organization Detail LastModifiedTime 06/17/19 20 06/18/2019 TSH + free T4, serum TSH 1.630 uIU/m L 0.450- 4.500 Not Available [facility] ([facility]) [address], [place], [address], 06/18/2019 07:08:45 06/17/19 20 06/18/2019 TSH + free T4, serum T4,free(dire ct) 1.43 NG/dL 0.82-1 .77 Not Available [facility] ([facility]) [address] [place], [address], 06/18/2019 07:08:45 06/17/19 20 06/18/2019 CMP, serum or plasm a glucose 94 mg/dL 65-99 Not Available [facility] ([facility]) [address] [place], [address], 06/18/2019 07:08:45 06/17/19 20 06/18/2019 CMP, serum or plasm a BUN 13 mg/dL 8-27 Not Available [facility] ([facility]) [address] [place], [address], 06/18/2019 07:08:45 06/17/19 20 06/18/2019 CMP, serum or plasm a creatinine 0.85 mg/dL 0.57-1 .00 Not Available [facility] ([facility]) [address] [place], [address], 06/18/2019 07:08:45 06/17/19 20 06/18/2019 CMP, serum or plasm a eGFR if nonafricn AM 73 mL/mi n/1.7 3 >59 Not Available [facility] ([facility]) [address] [place], [address], 06/18/2019 07:08:45 06/17/19 20 06/18/2019 CMP, serum or plasm a eGFR if africn AM 84 mL/mi n/1.7 3 >59 Not Available [facility] ([facility]) [address] [place], [address], 06/18/2019 07:08:45 06/17/19 20 06/18/2019 CMP, serum or plasm a BUN/creatini ne ratio 15 12-28 Not Available [facility] ([facility]) [address] [place], [address], 06/18/2019 07:08:45 06/17/19 20 06/18/2019 CMP, serum or plasm a sodium 140 mmol/ L 134-14 4 Not Available [facility] ([facility]) [address] [facility] [place], [address], 06/18/2019 07:08:45 06/17/19 20 06/18/2019 CMP, serum or plasm a potassium 4.5 mmol/ L 3.5-5. 2 Not Available [facility] ([facility]) [address] [facility] [place], [address], 06/18/2019 07:08:45 06/17/19 20 06/18/2019 CMP, serum or plasm a chloride 100 mmol/ L 96-106 Not Available [facility] ([facility]) [address] [place], [address], 06/18/2019 07:08:45 06/17/1906/18/2019 CMP, serum or plasm a carbon dioxide, total 25 mmol/ L 20-29 Not Available [facility] ([facility]) [address] [place], [address], 06/18/2019 07:08:45 06/17/19 20 06/18/2019 CMP, serum or plasm a calcium 9.2 mg/dL 8.7-10 .3 Not Available [facility] ([facility]) [address] [place], [address], 06/18/2019 07:08:45 06/17/1906/18/2019 CMP, serum or plasm a protein, total 6.5 g/dL 6.0-8. 5 Not Available [facility] ([facility]) [address] [place], [address], 06/18/2019 07:08:45 06/17/19 20 06/18/2019 CMP, serum or plasm a albumin 4.1 g/dL 3.8-4. 8 Not Available [facility] ([facility]) [address] [facility] [place], [address], 06/18/2019 07:08:45 06/17/19 20 06/18/2019 CMP, serum or plasm a globulin, total 2.4 g/dL 1.5-4. 5 Not Available [facility] ([facility]) [address] [place], [address], 06/18/2019 07:08:45 06/17/19 20 06/18/2019 CMP, serum or plasm a A/G ratio 1.7 1.2-2. 2 Not Available [facility] ([facility]) [address] [facility] [place], [address], 06/18/2019 07:08:45 06/17/19 20 06/18/2019 CMP, serum or plasm a bilirubin, total 0.3 mg/dL 0.0-1. 2 Not Available [facility] ([facility]) [address] [facility] [place], [address], 06/18/2019 07:08:45 06/17/19 20 06/18/2019 CMP, serum or plasm a alkaline phosphatase 66 IU/L 39-117 Not Available [facility] ([facility]) [address] [place], [address], 06/18/2019 07:08:45 06/17/19 20 06/18/2019 CMP, serum or plasm a AST (SGOT) 21 IU/L 0-40 Not Available [facility] ([facility]) [address] [place], [address], 06/18/2019 07:08:45 06/17/19 20 06/18/2019 CMP, serum or plasm a ALT (SGPT) 11 IU/L 0-32 Not Available [facility] ([facility]) [address] [place], [address], 06/18/2019 07:08:45 06/17/19 20 06/18/2019 CBC WBC 7.3 x10e3 /uL 3.4-10 .8 Not Available [facility] ([facility]) [address] [facility] [place], [address], 06/18/2019 07:08:46 06/17/19 20 06/18/2019 CBC RBC 4.96 x10e6 /uL 3.77-5 .28 Not Available [facility] ([facility]) [address] [facility] [place], [address], 06/18/2019 07:08:46 06/17/19 20 06/18/2019 CBC hemoglobin 17.0 g/dL 11.1-1 5.9 above high normal Not Available [facility] ([facility]) [address] [facility] [place], [address], 06/18/2019 07:08:46 06/17/19 20 06/18/2019 CBC hematocrit 48.9 % 34.0-4 6.6 above high normal Not Available [facility] ([facility]) [address] [facility] [place], [address], 06/18/2019 07:08:46 06/17/19 20 06/18/2019 CBC MCV 99 fL 79-97 above high normal Not Available [facility] ([facility]) [address] [facility] [place], [address], 06/18/2019 07:08:46 06/17/19 20 06/18/2019 CBC MCH 34.3 pg 26.6-3 3.0 above high normal Not Available [facility] ([facility]) [address] [facility] [place], [address], 06/18/2019 07:08:46 06/17/19 20 06/18/2019 CBC MCHC 34.8 g/dL 31.5-3 5.7 Not Available [facility] ([facility]) [address] [facility], [place], [address], 06/18/2019 07:08:46 06/17/19 20 06/18/2019 CBC RDW 11.8 % 11.7-1 5.4 Not Available [facility] ([facility]) [address], [place], [address], 06/18/2019 07:08:46 06/17/19 20 06/18/2019 CBC platelets 190 x10e3 /uL 150-45 0 Not Available [facility] ([facility]) [address], [place], [address], 06/18/2019 07:08:46 06/17/19 20 06/18/2019 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 Not Available [facility] ([facility]) [address] [facility], [place], [address], 06/18/2019 07:08:46 06/17/19 20 06/18/2019 lipid panel , serum cholesterol, total 177 mg/dL 100-19 9 Not Available [facility] ([facility]) [address] [facility], [place], [address], 06/18/2019 07:08:46 06/17/19 20 06/18/2019 lipid panel , serum triglyceride s 74 mg/dL 0-149 Not Available [facility] ([facility]) [address] [facility], [place], [address], 06/18/2019 07:08:46 06/17/19 20 06/18/2019 lipid panel , serum HDL cholesterol 66 mg/dL >39 Not Available [facility] ([facility]) [address] [facility], [place], [address], 06/18/2019 07:08:46 06/17/19 20 06/18/2019 lipid panel , serum VLDL cholesterol po 15 mg/dL 5-40 Not Available [facility] ([facility]) [address] [facility], [place], [address], 06/18/2019 07:08:46 06/17/19 20 06/18/2019 lipid panel , serum LDL cholesterol calc 96 mg/dL 0-99 Not Available [facility] ([facility]) [address] [facility], [place], [address], 06/18/2019 07:08:46 06/17/19 20 06/18/2019 lipid panel , 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 2 LDL/H DL Ratio Men Women 1/2 Avg.R isk 1.0 1.5 Avg.R isk 3.6 3.2 2X Avg.R isk 6.2 5.0 3X Avg.R isk 8.0 6.1 Not Available [facility] ([facility]) [address] [facility], [place], [address], 06/18/2019 07:08:46 06/17/19 20 06/18/2019 T3, free, serum or plasm a triiodothyro nine (T3), free 2.5 pg/mL 2.0-4. 4 Not Available [facility] ([facility]) [address] [facility], [place], [address], 06/18/2019 07:08:47 01/09/20 20 01/08/2020 CT, chest , w/o contr ast No observ ation record ed. [address], [place], [address], 01/14/2020 12:32:15 01/10/20 20 01/10/2020 US, liver No observ ation record ed. [place] [id number] [facility] [address], [place], [address], 01/14/2020 12:32:16 01/15/20 20 01/08/2020 LDCT, chest , for lung cance r alix domingog No observ ation record ed. [email or web address] Not Available 2019 12:48:24 01/20/20 20 01/20/2020 XR, chest No observ ation record ed. [place] [address], [place], [address], 01/24/2020 13:38:28 01/20/20 20 01/20/2020 biops y, lung, ct lizandro nce (PROC ) No observ ation record ed. [address], [place], [address], 01/24/2020 13:38:17 01/20/20 20 01/20/2020 XR, chest No observ ation record ed. [place] [address], [place], [address], 01/24/2020 13:37:58 01/24/20 20 01/20/2020 XR, chest No observ ation record ed. [email or web address] Not Available 2019 12:48:25 02/18/20 20 02/18/2020 MRI, brain + brain stem, w/wo contr ast No observ ation record ed. [place] [address], [place], [address], 03/05/2020 18:03:36 03/05/20 20 03/05/2020 PET-C T, skull base to mid-t high scan No observ ation record ed. [address] (Imaging) [address] [place], [place] [address]e [facility], [place], [address], 03/05/2020 20:23:44 03/18/20 20 03/18/2020 NM, bone scan No observ ation record ed. [address] [facility], [place], [address], 03/19/2020 11:08:17 05/27/19 21 05/11/2020 fluor oscop y (PROC ) No observ ation record ed. [email or web address] Not Available 2020 17:35:41 05/27/19 21 05/11/2020 XR, chest No observ ation record ed. [place] [id number] Not Available 2020 17:35:56 07/21/19 21 07/20/2020 CT, chest , w/ contr ast No observ ation record ed. [place] [address], [place], [address], 07/29/2020 14:29:30 09/18/19 21 09/17/2020 CT, chest , w/ contr ast No observ ation record ed. [place] [address], [place], [address], 10/07/2020 18:18:43 12/22/19 21 12/21/2020 CT, chest , w/ contr ast No observ ation record ed. [place] [address], [place], [address], 12/24/2020 11:13:51 04/05/19 22 04/05/2021 imagi ng/di agnos tic resul t No observ ation record ed. [place] [address], [place], [address], 04/26/2021 16:15:38 06/29/19 22 06/28/2021 CT, angio gram, chest , w/ contr ast No observ ation record ed. [place] [address], [place], [address], 06/29/2021 09:22:34 09/17/19 22 09/16/2021 CT, chest , w/ contr ast No observ ation record ed. [place] [address], [place], [address], 10/04/2021 12:53:12 09/20/19 22 09/16/2021 CT, chest , w/ contr ast No observ ation record ed. [email or web address], [place], [address], 10/04/2021 12:53:40 11/24/19 22 11/23/2021 CT, angio gram, chest , w/ contr ast No observ ation record ed. [address], [place], [address], 11/25/2021 11:09:08 01/26/20 22 01/25/2022 CT, angio gram, chest , w/ contr ast No observ ation record ed. [address], [place], [address], 01/25/2022 14:27:42 06/01/19 23 05/31/2022 CT, chest , w/ contr ast No observ ation record ed. [place] [address], [place], [address], 06/07/2022 10:02:02 09/03/19 23 09/01/2022 CT, abdom en + pelvi s, w/ contr ast No observ ation record ed. [place] [address], [place], [address], 09/06/2022 16:43:15 09/29/19 23 09/28/2022 CT, chest , w/ contr ast No observ ation record ed. [address], [place], [address], 10/01/2022 16:09:11 12/28/19 23 12/27/2022 CT, chest + abdom en + pelvi s, w/ contr ast No observ ation record ed. [address], [place], [address], 12/27/2022 14:15:52 04/03/19 24 04/03/2023 CT, chest , w/ contr ast No observ ation record ed. [address], [place], [address], 04/12/2023 05:40:43 06/21/19 24 06/19/2023 CT, chest , w/ contr ast No observ ation record ed. [address], [place], [address], 07/07/2023 10:11:02 06/22/19 24 06/19/2023 CT, chest , w/ contr ast No observ ation record ed. [place] [address], [place], [address], 07/07/2023 10:13:20 09/25/19 24 09/25/2023 CT, abdom en + pelvi s, w/ contr ast No observ ation record ed. [place] [address], [place], [address], 10/04/2023 05:18:05 10/13/19 24 10/12/2023 PET, skull base to mid-t high No observ ation record ed. [place] [address], [place], [address], 10/16/2023 10:39:34 10/14/19 24 10/14/2023 XR, chest , 2 view No observ ation record ed. [place] [address], [place], [address], 10/16/2023 10:42:31 10/14/19 24 10/14/2023 CT, angio gram, chest , w/ contr ast No observ ation record ed. [place] [address], [place], [address], 10/16/2023 10:42:52 10/15/19 24 10/15/2023 US, duple x, venou s, lower extre mity No observ ation record ed. [place] [address], [place], [address], 10/16/2023 10:43:07 10/16/19 24 10/16/2023 CT, heart , w/o contr ast, w/ coron andrea calci um score No observ ation record ed. [address], [place], [address], 10/16/2023 17:48:39 10/18/19 24 10/18/2023 XR, chest , 2 view No observ ation record ed. [place] [address] [facility] [address], [place], [address], 10/29/2023 07:39:48 Result Notes None recorded. Problems Name Problem SNOMED Code Status Onset Date Resolution Date Notes Provider Name and Address Organization Details Recorded Time Essential hypertension 00908088 Active 2019 Freddy Gallagher MD Attn: Dionte han,[address] [facility], [place], [address], [place] [facility] 0 14:45:57 Multiple bruising 808893407 Active 2019 Freddy Gallagher MD Attn: Dionte han,[address] [facility], [place], [address], [place] [facility] 0 14:47:00 Palmar erythema 18949811 Active 2019 Freddy Gallagher MD Attn: Dionte han,[address] [facility], [place], [address], [place] [facility] 0 14:47:22 Erythrocytosis 736643851 Active 2019 Freddy Gallagher MD Attn: Dionte han,[address] [facility], [place], [address], [place] [facility] 0 18:03:17 Disease of liver 247336613 Active 2019 Freddy Gallagher MD Attn: Dionte han,[address] [facility], [place], [address], [place] [facility] 0 11:30:11 Anxiety 27131642 Active 2019 Freddy Gallagher MD Attn: Dionte han,[address] [facility], [place], [address], [facility] 0 12:59:08 Adenocarcinoma of lung 785636475 Active 2022 Freddy Gallagher MD Attn: Dionte han,[address] [facility], [place], [address], 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 Number on 12/08/2023 through Direct Message along with the following message body content: Patient Name: YESSENIA CLEMENT. Patient : 1955. Patient . Rochelle Brito [facility], [place] - [facility] 01/11/2024 12:17:21 Procedures Surgical History Date Name Laterality Status Provider Name and Address Organization Details Recorded Time Tonsillectomy completed Esmer Clement MA [place] - [facility] 06/17/2019 13:57:56 Total hysterectomy completed Esmer Clement MA [place] - [facility] 06/17/2019 13:58:01 cholecystectomy completed Esmer vázquez MA [place] - [facility] 06/17/2019 13:58:20 Imaging Results None recorded. Procedure Notes None recorded. Medical Equipment None Reported. Allergies Allergen ID Allergen Name Allergen Category Reaction Reaction Severity Criticality Documentation Date Start Date Code Code System Note Provider Name and Address Organization Details Recorded Time 921193 sertralin e medicatio n abdominal pain severe Not available 01/28/2020 19922 RxNorm Freddy Gallagher MD Attn: Dionte han,[address] [facility], [place], [address], [facility] 0 12:48:26 Medications Name Sig [...] Updated DateTime 2 172.72 cm 23 kg/m2 13289.4 5 g 98.1 [degF] 108 /min 99 % 99 % 110/60 mm[Hg] Esmer Clement MA [place] - [facility] 2 16:00:04 Date Recorded Body height Body mass index (BMI) Body weight Body temperature Oxygen saturation Oxygen saturation in Arterial blood by Pulse oximetry Heart rate Systolic And Diastolic Provider Name and Address Organization Details Last Updated DateTime 0 172.72 cm 27.5 kg/m2 17436.2 2 g 98.1 [degF] 96 % 96 % 81 /min 138/92 mm[Hg] Esmer Clement MA [facility] 0 13:59:53 Date Recorded Body height Body mass index (BMI) Body weight Heart rate Body temperature Oxygen saturation Oxygen saturation in Arterial blood by Pulse oximetry Systolic And Diastolic Provider Name and Address Organization Details Last Updated DateTime 3 172.72 cm 23.1 kg/m2 53933.0 4 g 101 /min 98.1 [degF] 98 % 98 % 126/78 mm[Hg] Esmer Clement MA [facility] 3 12:50:49 Date Recorded Body height Provider Name an d Address Organization Details Last Updated DateTime 01/28/2020 172.72 cm Esmer Clement MA [facility] 0 12:09:47 Social History Question Answer Notes LastModified by Organizat ion Details LastModified Time Tobacco Smoking Status Current Every Day Smoker Esmer Clement MA null, [facility] 06/17/2019 13:57:04 What Was The Date [...] Diagnosis SNOMED-CT Code Diagnosis ICD10 Code Diagnosis IMO Codes Diagnosis Note [id number] MD Severiano Butterfield (Adult Med) [address] [place] [phone] 06/17/2019 13:44:23 06/18/2019 16:59:43 Essential hypertension 65927716 I10 Newly diagnosed Will start HCTZ 12.5 mg/d Multiple bruising 688980 006 T14.8XXA Palmar erythema 62170518 L53.8 [id number] MD Severiano Butterfield (Adult Med) [address] [place] [phone] 07/15/2019 12:28:58 07/16/2019 16:42:08 Essential hypertension 72570134 I10 Stop HCTZ. Check BP daily. Call in three days. Reevaluate [id number] MD Severiano Butterfield (Adult Med) [address] [place] [address] 01/28/2020 11:39:06 01/29/2020 11:05:44 Essential hypertension 27550731 I10 Disease of liver 0668684 03 K76.9 Anxiety 54331212 F41.9 [id number] MD Severiano Butterfield (Adult Med) [address] [place] [phone] 05/04/2021 15:50:21 05/05/2021 14:24:36 Essential hypertension 94733694 I10 Cont current regime [id number] MD Severiano Butterfield (Adult Med) [address] [place] [address] 08/18/2022 12:33:29 08/19/2022 13:57:28 Essential hypertension 43861387 I10 Cont current regime Labs drawn regularly by oncology Disease of liver 5969629 03 K76.9 Adenocarci noma of lung 144793178 C34.90 F/U oncology as scheduled Health Concerns Section Related Observation LastModified by Organization Detai ls LastModified Time None Recorded Concern Status LastModified by Organization Details LastModified Time None Recorded Advance Directives Directive None Recorded Payers Insurance Date Sequence Insurance Name Policy Number Policy Hensley Covered Member ID Hensley Member ID Guarantor Name 01/28/2020 1 [employer] (POS) [id number] Yessenia Clement [id number] Yessenia Clement 05/04/2021 1 *SELF PAY* Dayana Clement 12/29/2023 [place] - [facility] Yessenia Clement [id number] Yessenia Clement 12/29/2023 2 [employer] (MEDICARE SUPPLEMENT) Yessenia Clement [id number] Yessenia Clement 12/29/2023 1 [place] Yessenia Clement [id number] Yessenia Clement Notes Date Note Type Note Provider Name [...] sensations Freddy Gallagher MD Attn: Accounting[address] [place], [address], [facility] 06/17/2019 15:01:07 07/15/2019 text/html Telephone visit due to Covid-19 precautions. Pt has been unable to tolerate 12.5 mg HCTZ. Feels weak, lightheaded about four hours after med is taken. She takes her BP daily. Systolic averages 130's while diastolic 85 - 92. Freddy Gallagher MD Attn: [address] [place], [address], [facility] 07/15/2019 13:09:34 01/28/2020 text/html Telephone visit due to Covid-19 precautions. She is requesting refills on BP meds. Recently diagnosed with non-small cell ca lung. Experiencing anxiety off and on Freddy Gallagher MD Attn: Accounting[address] [place], [address], [facility] 01/28/2020 13:03:03 05/04/2021 text/html Needs refills on BP meds. Currently being treaed for adenoca left lung Freddy Gallagher MD Attn: Accounting,[address] [facility], [place], [address], [facility] 05/04/2021 16:31:53 08/18/2022 text/html Here for regular visit. She feels good Freddy Gallagher MD Attn: Accounting,[address], [place], [address], [facility] 08/18/2022 13:30:20 OBGyn Episode No OBEpisode recorded.
--- OUTSIDE RECORDS SUMMARY | 2025-01-10 10:24 | XMS_ITS | Encounter Summary ---
Author Organization [facility] Healthcare Address [address] [place] [address] Care Team Providers Care Network Cable Installer Name Role Phone Melida Ibarra NP Primary Care Provider Encounter Details Date Type Department Care Team (Late st Contact Info) Description 08/15/2024 Orders Only [facility] Health Information Management [address] [place] [phone] Scanning, Provider Social History Tobacco Use Types Packs/Day Years Used Date Smoking Tobacco: Former Cigarettes Smokeless Tobacco: Never Comments Unknown Sex and Gender Information Value Date Recorded Sex Assigned at Not on file 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
--- OUTSIDE RECORDS SUMMARY | 2025-01-10 10:24 | XMS_ITS | Clinical Summary ---
Author Organization [facility] [address] Address [address] [place] [address] Care Team Providers Care Relocation Specialist Name Role Phone Melida Ibarra NP Primary Care Provider [phone] Allergies Active Allergy Reactions Criticality Noted Date Comments Pentazocine Itching Low 11/14/2023 Medications ALPRAZolam (XANAX) 0.25 mg tablet TAKE 1 TABLET BY MOUTH EVERY 6 TO 8 HOURS NEEDED Active gabapentin (NEURONTIN) 300 mg capsule TAKE 1 CAPSULE BY MOUTH DAILY AT BEDTIME Active sotorasib (LUMAKRAS) 320 mg tablet Take 3 tablets (960 mg total) by mouth daily 024 Active simvastatin (ZOCOR) 20 mg tabletIndications :Lipid screening,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 Take 1 tablet (20 mg total) by mouth nightly 30 tablet 11 024 Active Additional Information Patient not taking.Reason: Side effects, Reported on 09/06/2024 metoprolol XL (TOPROL-XL) 25 mg extended release tablet TAKE 1 TABLET(25 MG) BY MOUTH EVERY MORNING 90 tablet 3 024 Active sacubitriL-valsar boudreaux (Entresto) 24-26 mg tabletIndications :Dilated cardiomyopathy (HCC) TAKE 1 TABLET BY MOUTH TWICE DAILY 180 tablet 2 025 Active HYDROcodone-aceta minophen (NORCO) 5-325 mg per tablet Take 1 tablet by mouth every 6 (six) hours as needed 025 Active fluticasone-umecl idin-vilanter (Trelegy Ellipta) 100-62.5-25 mcg inhaler Inhale 1 puff daily Active oxyCODONE (ROXICODONE) 5 mg immediate release tablet Take by mouth every 6 (six) hours as needed Active amiodarone (PACERONE) 200 mg tablet Take 1 tablet (200 mg total) by mouth daily 30 tablet 5 025 2025 Active amiodarone (PACERONE) 200 mg tablet Take 1 tablet (200 mg total) by mouth daily 90 tablet 3 025 Active Eliquis 5 mg tablet TAKE 1 TABLET(5 MG) BY MOUTH EVERY 12 HOURS 180 tablet 1 025 Active Eliquis 5 mg tablet TAKE 1 TABLET(5 MG) BY MOUTH EVERY 12 HOURS 180 tablet 1 025 2024 Discontinued Active Problems Problem Noted Date Diagnosed Date Hospital discharge follow-up 11/29/2023 HFrEF (heart failure with reduced ejection fract ion) 11/29/2023 Dilated cardiomyopathy 11/29/2023 Paroxysmal atrial fibrillation 11/29/2023 Encounters Date Type Department Care Team Description 11/22/2024 9:45 AM CDT Office Visit [facility] Medical [facility] Cardiology [address] [place] [phone] Regan Peraza MD HFrEF (heart failure with reduced ejection fraction) (Primary Dx); Dilated cardiomyopathy (HCC); Paroxysmal atrial fibrillation (HCC) 10/10/2024 Telephone [facility] Medical [facility] Cardiology [address] [place] [phone] Susan Hutchinson NP from Last 3 Months Surgical History Surgery [...] on file 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 Gender Identity Not on file Sexual Orientation Not on file Obstetrics History Last Filed Vital Signs Vital Sign Reading Time Taken Comments Blood Pressure 130/70 11/22/2024 9:35 AM CDT Pulse 73 11/22/2024 9:35 AM CDT Temperature - - Respiratory Rate - - Oxygen Saturation 90% 11/22/2024 9:35 AM CDT Inhaled Oxygen Concentration - - Weight 62.2 kg (137 lb 3.2 oz) 11/22/2024 9:35 A M CDT Height 172.7 cm (5' 8) 11/22/2024 9:35 AM CDT Body Mass Index 20.86 11/22/2024 9:35 AM CDT Plan of Treatment Health Maintenance [...] 12/30/2021, Additional history exists Insurance [employer] [facility] [employer] Care Teams Relocation Specialist Relationship Specialty Start Date End Date Melida Ibarra NP [facility] [facility] [address] SMART [address] [place] [address] PCP - General Cardiovascular Disease 07/02/24
--- OUTSIDE RECORDS SUMMARY | 2025-01-10 10:24 | XMS_ITS | Encounter Summary ---
Author Organization [facility] Healthcare Address [address] [place] [address] Care Team Providers Care Back Order Clerk Name Role Phone Melida Ibarra NP Primary Care Provider Encounter Details Date Type Department Care Team (Late st Contact Info) Description 08/13/2024 Orders Only [facility] Health Information Management [address] [place] [address] Scanning, Provider Social History Tobacco Use Types Packs/Day Years Used Date Smoking Tobacco: Former Cigarettes Smokeless Tobacco: Never Comments Unknown Sex and Gender Information Value Date Recorded Sex Assigned at Not on file 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
--- NOTE | 2025-02-13 12:24 | P.PCNPFT_ITS ---
PFT Procedure Performed PFT Procedure Performed Spirometry with Pre/Post Bronchodilator Plethysmography (Lung Vol) Diffusing Cap (DLCO) Flow Vol Loop PFT Interpretation DOS: 01/10/2025 REQUESTING: Ana Mora MD REASON FOR TESTING: Emphysema PULMONARY FUNCTION TESTS Results are reliable and reproducible. Repeatability of spirometry FEV1 maneuver pre and post bronchodilator is Grade A. Tadeo: GLI 2012 reference equations were used. Spirometry: The pre-bronchodilator FEV1 is 1.35 L, 54%, decreased. The pre- bronchodilator FVC is 2.49 L, 76%, normal. The FEV1/FVC ratio is 54%, decreased, consistent with airflow obstruction. After bronchodilator, the FEV1 is 1.37 L, 54%, +1. After bronchodilator, the FVC is 2.38 L, 73%, -5. The FEV1/FVC ratio is 57%. Lung volumes: The total lung capacity is 6.64 L, 117%, normal. The residual volume is 4.14, 173%, elevated. The RV/TLC is 62%. Airway resistance is increased. Diffusion: DLCO is 10.3, 46%, decreased. The DLCO/VA is 2.73, 66%, decreased. Flow volume loop: The flow volume loop shows coving the expiratory limb. IMPRESSION: This study shows a moderate obstructive ventilatory impairment without significant response to bronchodilator, moderate air trapping, moderate diffusion impairment with partial correction for alveolar volume. Lack of response to bronchodilator should not preclude use if clinically indicated. Ana Mora MD
--- NOTE | 2025-02-13 12:25 | WPDSIXMINUTE ---
Six Minute Walk Procedure Procedure Performed Pulmonary Stress Test (6 min walk) Six Minute Walk Six Minute Walk: DATE OF SERVICE: 01/10/2025 REQUESTING: Ana Mora MD REASON FOR TESTING: Emphysema SIX MINUTE WALK This test was conducted per ATS guidelines. The initial saturation was 98%, and initial heart rate was 81 beats per minute. The patient walked without stopping, completing 304.8 m/1000 beat. The saturation at the end of testing was 96%, and the heart rate was 102 beats per minute. The Nasrin score for fatigue and dyspnea was 1 initially, and 1 at the end of testing. IMPRESSION: This is a normal study. The patient did not require supplemental oxygen with exertion. Ana Mora MD
== END 2025-01-10 10:05 | disposition home or self-care (01) ==
LOC: ANHPFT 10:05
PROVIDERS: PCP Clinical Nurse Specialist; Visit Provider Internal Medicine Critical Care Medicine
DX: C34.92 Malignant neoplasm of unspecified part of left bronchus or lung (principal); J43.9 Emphysema, unspecified
CPT/HCPCS: 94060; 94618; 94726; 94729

== ENCOUNTER 2025-01-17 15:13 | Inpatient (IN) | payer MEDICARE, OTHER, SELFPAY ==
--- OUTSIDE RECORDS SUMMARY | 2000-07-17 11:30 | XMS_ITS | Continuity of Care Document ---
Author Organization formerly [facility] Address [address] [facility] [address] [place] [address] Phone Care Team Providers Care Ferryboat Pilot Name Role Phone Beronica Morgan Unavailable Unavailable Advance Directives Directive Yes / No Effective Date File Name No Information Encounters Encounter Description Practice Location Reason(s) For Visit Diagnoses Date Provider Providers Copied on Encounter [facility], [address], [place], [place], [id number], [place] tel:[phone] [facility] No Information Apr-3 0-200 1 Cathy Loco. [address] , [address], [place], [address], [place]. tel:[phone] Family History Family Member Type Diagnosis Age At Onset No Information Payers Payer name Insurance type Covered alliance party ID Authoriza tion(s) No Information Social History [...]
[2025-01-17] VITALS (28 sets, daily range): BP systolic 81–107; BP diastolic 48–76; PULSE 69–144; RESP 16–33; TEMP 36.2–36.9; O2SAT 89–100; BMI 21.9
--- NOTE | ~2025-01-17 | XR_ITS ---
EXAMINATION: XR chest 2V, 01/17/2025 16:17 CDT HISTORY: shortness of breath COMPARISON: 11/16/2024 Technique: 2 views obtained. Findings: Small basilar infiltrates and effusions. There is a nodule in the left midlung measuring 2.5 x 2.5 cm. No pneumothorax. Moderate cardiomegaly. Mediastinal and hilar contours are within normal limits. Bony thorax no acute abnormality. Right Mediport terminates in the SVC. Impression: Bilateral pneumonia. Left lung nodule. CT suggested to assess. The lung nodule appears increased in size compared to previous CT. Reviewed, dictated and finalized at location P. Impression: Bilateral pneumonia. Left lung nodule. CT suggested to assess. The lung nodule appears increased in size compared to previous CT.
--- NOTE | ~2025-01-17 | US_ITS ---
EXAMINATION: US biopsy liver DATE: 01/22/2025 14:20 INDICATION: Liver mass TECHNIQUE: The procedure including the risks and benefits was discussed with the patient. Risks discussed included bleeding and infection. The patient understood the risks and agreed to proceed. The skin overlying the liver was prepped and draped in usual sterile fashion. Anesthetic was administered with 1% lidocaine subcutaneously. An 18 gauge core biopsy needle was advanced under continuous ultrasound observation to the lesion of interest. 3 core biopsy specimens were obtained. The needle was removed and the entry site was cleaned and dressed. Post procedure ultrasound demonstrated no hemorrhage. FINDINGS: Ultrasound images demonstrate a 4.0 x 3.7 x 2.7 cm slightly hyperechoic mass with hypoechoic halo in the left hepatic lobe. Subsequent images demonstrate biopsy needle advanced into the mass. IMPRESSION: 1. Successful Ultrasound-guided biopsy of a 4.0 cm mass in the left hepatic lobe. Reviewed, dictated and finalized at location A. ENT AFFAIRS DEAN IMPRESSION: 1. Successful Ultrasound-guided biopsy of a 4.0 cm mass in the left hepatic lob e.
--- NOTE | ~2025-01-17 | CT_ITS ---
EXAMINATION: CT diagnostic chest wo con DATE: 01/17/2025 17:02 INDICATION: characterize pna and mass TECHNIQUE: Computed tomography (CT) of the chest was performed without intravenous contrast. Additional 3D reconstructions utilizing coronal maximum intensity projection (MIP) were performed. Automated exposure control and iterative reconstruction technique were employed. The dose-length product was 14 2.43 mGy-cm. COMPARISON: CT dated 11/16/2024 FINDINGS: Mild emphysema. Increase in size of small to moderate-sized posterior layering right pleural effusion and very small posterior layering left pleural effusion. There is associated dependent atelectasis in the bilateral lower lobes, right greater than left. Again seen is an approximately 4.0 x 2.3 cm lenticular mass in the lingula along the major fissure corresponding to biopsy-proven lung cancer. This appears without significant interval change since CT dated 11/16/2024. Also unchanged is a 1.7 x 1.4 cm spiculated paramediastinal nodule in the left upper lobe. No significant change in a 7 mm nodule at the lingula. Is also demonstrated increased FDG uptake on intervening PET/CT dated 11/19/2024 consistent with metastatic disease. There has been interval increase in size of a previously 12 x 9 mm, currently 1.8 x 1.6 mm spiculated mass with some progression in the surrounding reticulonodular opacities at the posterior basilar left lower lobe which could represent progression of metastatic disease with some lymphangitic carcinomatosis versus pneumonia with endobronchial spread. There are a few additional unchanged subcentimeter nodules in the lateral basilar left lower lobe the largest measuring 8 mm which without increased FDG uptake on PET/CT and more likely to represent sequela of old granulomatous disease. Also consistent with old granulomatous disease. Calcite nodules in the right middle lobe and calcified right hilar lymph nodes. Heart size is normal. Moderate-sized pericardial effusion. Thoracic aorta is normal in caliber. No evident pathologically enlarged thoracic lymph nodes although as sessment is more limited on noncontrast imaging. Right internal jugular central venous port catheter with distal tip at the caudal superior vena cava. Visualized upper abdomen is unremarkable on noncontrast imaging. Chronic T9 and T12 compression fracture with change of prior vertebroplasty. IMPRESSION: 1. Increase in size of now small to moderate right and very small left pleural effusions with progression of associated compressive atelectasis in the dependent lower lobes, right greater than left. 2. No significant interval change in a 4.0 x 2.3 cm lenticular mass in the posterior lingula consistent with biopsy-proven lung cancer or cervical scattered pulmonary nodules with increased FDG uptake on prior PET/CT suspicious for metastatic disease. 3. Interval increase in size of a 1.8 x 1.6 cm spiculated nodule with surrounding reticulonodular opacities in the posterior basilar segment of the right lower lobe which could represent progression of metastatic disease with lymphangitic carcinomatosis and/or focal pneumonia with surrounding endobronc hial spread of disease. Reviewed, dictated and finalized at location A. IMPRESSION: 1. Increase in size of now small to moderate right and very small left pleural effusions with progression of associated compressive atelectasis in the depende nt lower lobes, right greater than left. 2. No significant interval change in a 4.0 x 2.3 cm lenticular mass in the post erior lingula consistent with biopsy-proven lung cancer or cervical scattered p ulmonary nodules with increased FDG uptake on prior PET/CT suspicious for metas tatic disease. 3. Interval increase in size of a 1.8 x 1.6 cm spiculated nodule with surroundi ng reticulonodular opacities in the posterior basilar segment of the right lowe r lobe which could represent progression of metastatic disease with lymphangiti c carcinomatosis and/or focal pneumonia with surrounding endobronchial spread o f disease.
--- NOTE | ~2025-01-17 | US_ITS ---
EXAMINATION: US thoracentesis DATE: 01/22/2025 14:24 INDICATION: Moderate-sized right pleural effusion TECHNIQUE: The procedure and its risks and benefits were discussed with the patient. Potential risks discussed included bleeding, infection, and pneumothorax. The patient understood the risks and agreed to proceed. The skin was prepped and draped in sterile fashion. 1% lidocaine was used for local anes thesia. Under ultrasound guidance, a 5 Fr catheter with trochar was advanced into the right pleural effusion. Fluid was aspirated. The catheter was removed, and a dressing was applied. There were no immediate complications. FINDINGS: Ultrasound images demonstrate a moderate-sized right pleural effusion and the catheter within the fluid. IMPRESSION: 1. Successful ultrasound-guided thoracentesis yielding 1100 mL of [id number] fluid. Reviewed, dictated and finalized at location A. ISTIC TECHNICIAN IMPRESSION: 1. Successful ultrasound-guided thoracentesis yielding 1100 mL of reddish-ambe r-colored fluid.
--- NOTE | ~2025-01-17 | XR_ITS ---
EXAMINATION: [id number], 01/22/2025 11:17 DIRECTOR [employer] HISTORY: moderate right pleural effusion COMPARISON: No comparisons available. Technique: Single view. Findings: Small to moderate basilar infiltrates and effusions. No pneumothorax. Heart is normal size. Mediastinal and hilar contours are within normal limits. Bony thorax no acute abnormality. Right Mediport terminates in the SVC. Impression: Bilateral pneumonia. The findings are progressed compared to the previous study Reviewed, dictated and finalized at location P. [employer]OR [employer] Impression: Bilateral pneumonia. The findings are progressed compared to the previous study
--- NOTE | ~2025-01-17 | XR_ITS ---
EXAM/PROCEDURE: XR chest 1V portable HISTORY: incrrased work of breathing COMPARISON: January 22 TECHNIQUE: Portable chest FINDINGS: [id number] left and small right-sided pleural effusions with increase interstitial/infiltrative changes in the mid and lower lung broderick, right worse than left stable to slightly worse on today's exam. Right internal jugular Port-A-Cath stable in position. No pneumothorax or subphrenic free air seen. IMPRESSION: Bilateral effusions with increased vascular congestion and possible worsening pulmonary edema compared to yesterday's exam. Reviewed, dictated and finalized at location A. GEMENT MANAGER IMPRESSION: Bilateral effusions with increased vascular congestion and possible worsening p ulmonary edema compared to yesterday's exam.
--- NOTE | 2025-01-17 15:52 | ECG_ITS ---
Test Date: 2025-01-17 16:04:56 Measurements Intervals [place] Rate: 93 P: 67 CT: 187 QRS: 126 QRSD: 125 T: 41 QT: 373 QTc: 464 Interpretive Statements SINUS RHYTHM RIGHT AXIS DEVIATION LEFT BUNDLE BRANCH BLOCK BASELINE ARTIFACT- I, II, AVR, AVL ABNORMAL ECG Compared to ECG 11/16/2024 19:24:56 NO SIGNIFICANT CHANGE Electronically Signed On 01-17-2025 16:13:14 CDT by Jesus Garcia D.O.
--- NOTE | 2025-01-17 16:05 | ED.SOB ---
HPI - SOB/Dyspnea General Chief Complaint: Shortness of Breath/Dyspnea Stated Complaint: increased SOB. PMH CHF. foot swelling Time Seen by Provider: 01/17/25 15:52 Source: patient Mode of arrival: ambulatory Limitations: no limitations History of Present Illness HPI Narrative: This is a 69-year-old female with history of lung cancer status post chemo now with Mets to the liver who presents the ED for shortness of breath. Patient states that for the past day, she has been having worsening shortness of breath feels similar to her CHF. She has had increasing swelling to her left lower extremity with stable right lower extremity swelling so she takes some hold Lasix that she had from about a year ago. She continued to shortness of breath prompting her to come to the ED. Denies chest pain, nausea vomiting, lightheadedness, dizziness. Related Data Home Medications ?Medication ?Instructions ?Recorded ?Confirmed ?Last Taken ?Type alprazolam 0.25 mg tablet (Xanax) 0.25 mg PO BID PRN Anxiety 04/30/20 12/30/24 Unknown History diphenhydramine HCl 25 mg capsule 25 mg PO HS 10/14/23 12/30/24 Unknown History (Benadryl) gabapentin 300 mg capsule 300 mg PO HS 10/14/23 12/30/24 Unknown History fluticasone propionate 50 1 spray intranasal DAILY PRN 06/28/24 12/30/24 Unknown History mcg/actuation nasal allergy symptoms spray,suspension ibuprofen 200 mg tablet (Advil) 400 mg PO Q6H PRN fever or pain 06/28/24 12/30/24 08/12/24 History sacubitril 24 mg-valsartan 26 mg 1 tablet PO BID 06/28/24 12/30/24 Unknown History tablet (Entresto) sotorasib 320 mg tablet (Lumakras) 960 mg PO QHS 06/28/24 12/30/24 Unknown History lidocaine 5 % topical patch 2 patch topical DAILY 08/12/24 12/30/24 Unknown History Allergies Allergy/AdvReac Type Severity Reaction Status Date / Time pentazocine (From Anjali) Allergy Irritable Verified 12/17/24 09:59 Review of Systems Review of Systems: Gen.: Denies fevers or chills Eyes: Denies eye pain or visual change ENT: Denies congestion Respiratory: As per HPI CV: Denies chest pain or palpitations GI: Denies abdominal pain nausea, emesis or diarrhea denies burning, urgency, frequency or hematuria Musculoskeletal: Denies back pain or muscle pain Neuro: Denies numbness, tingling, weakness or focal weakness Skin: Denies rash Except as documented, all other systems reviewed and negative [facility] Past Medical History Medical History Chronic anticoagulation Due to atrial fibrillation Paroxysmal atrial fibrillation 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 Hypertension Surgical History Surgical History History of insertion of tunneled central venous catheter (CVC) with port (04/2020) History of laparoscopy History of hysterectomy (1997) History of tonsillectomy (1965) History of cholecystectomy (1998) Family History Family History Grandparent Lung cancer Mother Breast cancer Small bowel cancer FH: kidney cancer Skin cancer Mother No problems noted. Father Skin cancer Social History Social History Social History: Patient lives at home with her of 50 years. She has 1 son. 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 She used to smoke a some much as 2 packs of cigarettes per day and started smoking around age 19. She cut back significantly on her smoking after cancer diagnosis in 2020. She still smokes 1 or 2 cigarettes a day. She denies any history of alcohol use or illicit substance use. Surrogate medical decision maker: Elliott Wallis, spouse Code status: DNR/DNI Smoking packs per day: 0.5 Smoking cigarettes per day: 10.0 Years smoked: 40 Smoking pack-years: 20.00 Smoking status: Current some day smoker Tobacco type: cigarettes Second hand tobacco smoke exposure: No Additional smoking assessment comments: cutting back since diagnosis Alcohol intake: never Substance use: never Substance use type: does not use Do You Feel Safe in your Home?: Yes Lack of Transportation: No Lack of Food: Never True Current Housing: I Have Housing Concerned About Future Housing: No Difficulty Paying Gas/Electric Bills: No Difficulty Paying for Meds: No Currently Unemployed: No Education: Trade/Vocational Certificate Difficulty w/ Childcare or Family Care: No Living arrangements: with family Spiritual care concerns: No Exam Narrative: APPEARANCE: No acute distress, nontoxic, resting in bed EYES: EOMI HEENT: Normocephalic, atraumatic, OMM RESPIRATORY: Diminished breath sounds of the rate base Clear to auscultation bilaterally with no rhonchi wheezing or rales. CARDIOVASCULAR: Regular rate and rhythm without murmurs rubs or gallops. ABDOMINAL: Soft, nontender, nondistended, no rebound or guarding MUSCULOSKELETAl: Moves all extremities. No clubbing, cyanosis or edema. NEURO: Awake and alert. Following commands, speech normal, no focal deficits SKIN:: Warm, dry. No rashes lesions or abrasions PSYCHIATRIC: Normal affect/mood, Course Vital Signs Vital signs: Vital Signs Temperature 97.2 F L 01/17/25 15:17 Pulse Rate 96 01/17/25 15:17 Respiratory Rate 22 H 01/17/25 15:17 Blood Pressure 81/60 L 01/17/25 15:17 Pulse Oximetry 92 01/17/25 15:17 Oxygen Delivery Room Air 01/17/25 15:17 Temperature 97.2 F L 01/17/25 15:17 Pulse Rate 75 01/17/25 16:51 Respiratory Rate 22 H 01/17/25 15:17 Blood Pressure 84/58 L 01/17/25 16:51 Pulse Oximetry 100 01/17/25 16:16 Oxygen Delivery Room Air 01/17/25 16:16 MDM - SOB/Dyspnea MDM Narrative Medical decision making narrative: 69-year-old female Presenting for shortness of breath. On initial evaluation patient was in no acute distress afebrile, blood pressures 80s/60s. Differentials include but are not limited to: ACS, CHF Exacerbation, COPD exacerbation, PE, PNA, PTX, bronchitis, viral syndrome Notable exam findings: Diminished breath sounds to be right lower lobe Benny no wheezes. Notable lab findings: Leukocytosis at 34.5. Mild hyponatremia at 1:29 a.m.. AST elevated to 51. BNP elevated at 4600. Notable imaging findings: Chest x-ray showed a right pleural effusion with a stable left pulmonary mass. CT chest showed possible pneumonia to the left middle lobe surrounding the pulmonary mass that could be consistent with growing mass versus pneumonia. After return from CT, patient was found to be in atrial flutter with rate in the 150s. She is already on amiodarone patient was given 150 mg amiodarone IV and did convert to normal sinus rhythm. Her blood pressures were soft so she was not given a dose of Lasix here in the. She is given a 500 mL bolus of normal saline with slight improvement of blood pressures. Patient was feeling short of breath still but remained satting in the mid 90s on room air when she was placed on 2 L nasal cannula for this with improvement to the high 90s. Patient will require admission for CHF exacerbation. Case was discussed with hospitalist who will admit the patient. Medical Records Attestation: I reviewed the patient's medical records. Lab Data Attestation: I reviewed the patient's lab results. 01/17/25 16:11 01/17/25 16:11 Labs: Lab Results 01/17/25 01/17/25 Range/Units 16:11 18:46 WBC 34.5 H (4.5-10.0) K/mm3 RBC 4.33 (4.2-5.4) M/mm3 Hgb 13.5 (12.0-15.0) g/dL Hct 44.0 (37.0-47.0) % MCV 101.6 H (80-100) fl MCH 31.2 (26-34) pg MCHC 30.7 L (32-36) g/dl RDW 14.1 (11.5-14.5) % Plt Count 62 L D (150-375) k/mm3 MPV 10.1 (7.4-10.4) fl Immature Gran % (Auto) Not Reportable Neut % (Auto) Not Reportable Lymph % (Auto) Not Reportable Swain % (Auto) Not Reportable Eos % (Auto) Not Reportable Baso % (Auto) Not Reportable Lymph # (Auto) Not Reportable Swain # (Auto) Not Reportable Eos # (Auto) Not Reportable Baso # (Auto) Not Reportable Abs Immat Gran (auto) Not Reportable Absolute Neuts (auto) Not Reportable Absolute Nucleated RBC Not Reportable Total Counted 100 Neutrophils % (Manual) 84 H (46-73) % Band Neutrophils % 8 H (0-6) % Lymphocytes % (Manual) 4.0 L (18-44) % Monocytes % (Manual) 4 (3-9) % Nucleated RBC % Not Reportable Abs Neuts (Manual) 31.74 H (1.3-6.7) K/mm3 Abs Lymphs (Manual) 1.38 (1.1-4.5) K/mm3 Abs Monocytes (Manual) 1.38 H (0.1-0.90) K/mm3 Platelet Estimate Decreased (Adequate) % Immature Plt Fraction 4.6 (0.9-11.2) % Hypochromasia 1+ Schistocytes None seen Sodium 129 L (137-145) mmol/L Potassium 4.4 (3.4-5.0) mmol/L Chloride 97 L (98-107) mmol/L Carbon Dioxide 29 (22-30) mmol/L Anion Gap 3 L (4-12) mmol/L BUN 17 (7-17) mg/dL Creatinine 1.03 H (0.7-1.0) mg/dL Estim Creat Clear Calc 45 ml/min Estimated GFR 53 L (59 - ) Glucose 111 H (65-110) mg/dL Lactic Acid 1.6 (0.7-2.0) mmol/L Calcium 8.1 L (8.4-10.2) mg/dL Total Bilirubin 0.7 (0.2-1.3) mg/dL AST 251 H (14-36) U/L ALT 17 (6-35) U/L Alkaline Phosphatase 162 H (38-126) U/L NT-Pro-B Natriuret Pep 4630 H (19.9-100) pg/mL Total Protein 5.6 L (6.3-8.2) g/dL Albumin 3.1 L (3.5-5.1) g/dL Imaging Data Attestation: I personally reviewed and interpreted this imaging study as follows: My impression: Chest x-ray: Right pleural effusion, pulmonary vascular congestion, stable appearing left middle field mass, Radiologist's impression: Impressions Chest X-Ray 01/17/25 16:26 Impression: Bilateral pneumonia. Left lung nodule. CT suggested to assess. The lung nodule appears increased in size compared to previous CT. Chest CT 01/17/25 17:21 IMPRESSION: 1. Increase in size of now small to moderate right and very small left pleural effusions with progression of associated compressive atelectasis in the dependent lower lobes, right greater than left. 2. No significant interval change in a 4.0 x 2.3 cm lenticular mass in the posterior lingula consistent with biopsy-proven lung cancer or cervical scattered pulmonary nodules with increased FDG uptake on prior PET/CT suspicious for metastatic disease. 3. Interval increase in size of a 1.8 x 1.6 cm spiculated nodule with surrounding reticulonodular opacities in the posterior basilar segment of the right lower lobe which could represent progression of metastatic disease with lymphangitic carcinomatosis and/or focal pneumonia with surrounding endobronchial spread of disease. ECG Data EKG #1: Attestation: I personally reviewed and interpreted this ECG as follows: ECG completion date: 01/17/25 ECG completion time: 16:04 Interpretation: Normal sinus rhythm rate of 93, right axis deviation, left bundle-branch block, no acute ST or T-wave changes EKG #2: Attestation: I personally reviewed and interpreted this ECG as follows: ECG completion date: 01/17/25 ECG completion time: 16:29 Interpretation: Atrial flutter rate of 28, right axis deviation no acute ST or T-wave changes. Compared to earlier in atrial flutter is new Discharge Plan Discharge Clinical Impression: Atrial fib/flutter, transient, Pleural effusion Acute exacerbation of CHF (congestive heart failure) Qualifiers: Heart failure type: unspecified Qualified Code(s): I50.9 - Heart failure, unspecified Lung cancer Qualifiers: Laterality: left Lung location: unspecified part of lung Qualified Code(s): C34.92 - Malignant neoplasm of unspecified part of left bronchus or lung CAP (community acquired pneumonia) Qualifiers: Laterality: left Lung location: unspecified part of lung Qualified Code(s): J18.9 - Pneumonia, unspecified organism Patient Disposition: Still a Patient Condition: Stable Patient Language: Irish Prescriptions: No Action oxycodone 10 mg tablet 10 mg PO Q6H PRN (Reason: pain) Qty: 120 0RF Entresto 24-26 mg tablet 1 tablet PO BID Lumakras 320 mg tablet 960 mg PO QHS ibuprofen [Advil] 200 mg tablet 400 mg PO Q6H PRN (Reason: fever or pain) alprazolam [Xanax] 0.25 mg Tablet 0.25 mg PO BID PRN (Reason: Anxiety) gabapentin 300 mg Capsule 300 mg PO HS diphenhydramine HCl [Benadryl] 25 mg Capsule 25 mg PO HS Eliquis 5 mg Tablet 5 mg PO Q12HR Qty: 60 1RF metoprolol succinate [Toprol XL] 25 mg Tablet Extended Release 24 Hr 25 mg PO QAM Qty: 30 0RF fluticasone propionate 50 mcg/actuation spray,suspension 1 spray INTRANASAL DAILY PRN (Reason: allergy symptoms) lidocaine 5 % adhesive patch,medicated 2 patch topical DAILY Rx Instructions: leave on most painful area for up to 12 hr on ribs and back amiodarone [Pacerone] 200 mg Tablet 200 mg PO DAILY@0800 Qty: 30 0RF Trelegy Ellipta 100-62.5-25 mcg blister with device 1 inh inhalation Q24H Qty: 60 5RF Follow-up/Referrals: Melida Ibarra, SENIOR J2EE DEVELOPER, [employer] [Primary Care Provider, Internal Medicine]
--- NOTE | 2025-01-17 16:10 | ECG_ITS ---
Test Date: 2025-01-17 16:29:24 Measurements Intervals Kimberly Rate: 128 P: 0 WI: 0 QRS: 127 QRSD: 131 T: 31 QT: 324 QTc: 474 Interpretive Statements ATRIAL FLUTTER/TACHYCARDIA WITH RAPID VENTRICULAR RESPONSE RIGHT AXIS DEVIATION LEFT BUNDLE BRANCH BLOCK BASELINE ARTIFACT- AVR, AVL ABNORMAL ECG Compared to ECG 01/17/2025 16:04:56 SINUS RHTYHM NO LONGER PRESENT Electronically Signed On 01-17-2025 20:10:02 CDT by Jesus Garcia D.O.
[2025-01-17 16:23] LABS: Hematocrit 44.0 % (37.0-47.0); Hemoglobin 13.5 g/dL (12.0-15.0); Immature Platelet Fraction Pct 4.6 % (0.9-11.2); Mean Corpuscular HGB Conc 30.7 g/dl (32-36); Mean Corpuscular Hemoglobin 31.2 pg (26-34); Mean Corpuscular Volume 101.6 fl (80-100); Platelet Count Result 62 k/mm3 (150-375); Red Blood Count 4.33 M/mm3 (4.2-5.4); White Blood Count 34.5 K/mm3 (4.5-10.0)
--- OUTSIDE RECORDS SUMMARY | 2025-01-17 16:23 | XMS_ITS | Encounter Summary ---
Author Organization [facility] Healthcare Address [address] [place] [address] Care Team Providers Care Forestry Technical Officer Name Role Phone Melida Ibarra NP Primary Care Provider Encounter Details Date Type Department Care Team (Late st Contact Info) Description 08/13/2024 Orders Only [facility] Health Information Management [address] [place] [phone] Scanning, Provider Social History Tobacco Use Types Packs/Day Years Used Date Smoking Tobacco: Former Cigarettes Smokeless Tobacco: Never Comments Unknown Sex and Gender Information Value Date Recorded Sex Assigned at Not on file 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
--- OUTSIDE RECORDS SUMMARY | 2025-01-17 16:23 | XMS_ITS | Encounter Summary ---
Author Organization [facility] Healthcare Address [address] [place] [address] Care Team Providers Care Press Operator Carbon Products Name Role Phone Freddy Gallagher MD Primary Care Provider Melida Ibarra NP Primary Care Provider [phone] Encounter Details Date Type Department Care Team (Late st Contact Info) Description 04/01/2024 Orders Only [facility] Health Information Management [address] [place] [address] Scanning, Provider Social History Tobacco Use Types Packs/Day Years Used Date Smoking Tobacco: Former Cigarettes Comments Unknown Sex and Gender Information Value Date Recorded Sex Assigned at Not on file 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
--- OUTSIDE RECORDS SUMMARY | 2025-01-17 16:23 | XMS_ITS | Encounter Summary ---
Author Organization [facility] Healthcare Address [address] [place] [address] Care Team Providers Care Song Plugger Name Role Phone Melida Ibarra NP Primary Care Provider Encounter Details Date Type Department Care Team (Late st Contact Info) Description 08/15/2024 Orders Only [facility] Health Information Management [address] [place] [phone] Scanning, Provider Social History Tobacco Use Types Packs/Day Years Used Date Smoking Tobacco: Former Cigarettes Smokeless Tobacco: Never Comments Unknown Sex and Gender Information Value Date Recorded Sex Assigned at Not on file 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
--- OUTSIDE RECORDS SUMMARY | 2025-01-17 16:23 | XMS_ITS | Encounter Summary ---
Author Organization [facility] Address [address] [place] [address] Care Team Providers Care Side Framer Name Role Phone Freddy Gallagher MD Primary Care Provider Reason for Visit * Reason Onset Date Comments Medication Refill 09/05/2022 Encounter Details Date Type Department Care Team (Late st Contact Info) Description 09/05/2022 Telephone [facility] Oncology and Hematology - Tadeo [address] [facility] [address] [place] [address] Malik Lewis MD [address] [facility] [address] [place] [address] Medication Refill Social History Tobacco [...] on filedocumented in this encounter Care Teams Side Framer Relationship Specialty Start Date End Date Freddy Gallagher MD [address] [place] [phone] PCP - General Gastroenterology 09/24/19 05/15/24 documented as of this encounter
--- OUTSIDE RECORDS SUMMARY | 2025-01-17 16:23 | XMS_ITS | Data Portability ---
Author Organization [facility] Address [address] [place] [address] Assessment No assessment recorded. Plan of Treatment Reminders Order Date Submit Date Provider Last Modified By Organization Details Last Modified Time Details Appointments None recorded. Lab CMP, serum or plasma 2019 [facility], [address] [place] [address], [address], [place], [address], 0 07:08:45 CBC 2019 [facility], [address] [place] [address], [address], [place], [address], 0 07:08:46 lipid panel, serum 2019 [facility], [address] [place] [address], [address], [place], [address], 0 07:08:46 TSH, ultra-sens itive, serum 2019 [facility], [address] [place] [address], [address], [place], [address], 0 14:50:00 TSH + free T4, serum 2019 [facility], [address] [place] [address], [address], [place], [address], 0 07:08:45 T3, free, serum or plasma 2019 020 [facility], [address], [address], [place], [address], 0 07:08:47 Referral None recorded. Procedures None recorded. Surgeries None recorded. Imaging None recorded. Medication Orders lisinopril 5 mg tablet 2021 022 [id number], [address], [place], [place], [id number], 2 16:31:34 lisinopril 5 mg tablet 2019 020 [facility][id number], [address], [place], [place], [id number], 0 13:02:45 hydroxyzin e HCl 25 mg tablet 2019 020 [facility] #[id number], [address], [place], [place], [id number], 2 15:58:36 hydrochlor othiazide 12.5 mg capsule 2019 [facility], [address] [place], [address], 0 12:10:54 Patient TargetsNo targets recorded. Patient Instructions Encounter Date Encounter Id Patient Instructions Last Modified By Organization Details Last Modified Time 08/18/2022 [id number] learning about high blood pressure Not available 08/18/2022 13:29:19 Reason for Referral None Reported. Results Created Date Observation Date Name Description Value Unit Range Abnormal Flag Note LastModifiedBy Organization Detail LastModifiedTime 06/17/19 20 06/18/2019 TSH + free T4, serum TSH 1.630 uIU/m L 0.450- 4.500 Not Available [facility] ([facility]) [address], [place], [address], 06/18/2019 07:08:45 06/17/19 20 06/18/2019 TSH + free T4, serum T4,free(dire ct) 1.43 NG/dL 0.82-1 .77 Not Available [facility] ([facility]) [address] [place], [address], 06/18/2019 07:08:45 06/17/19 20 06/18/2019 CMP, serum or plasm a glucose 94 mg/dL 65-99 Not Available [facility] ([facility]) [address] [place], [address], 06/18/2019 07:08:45 06/17/19 20 06/18/2019 CMP, serum or plasm a BUN 13 mg/dL 8-27 Not Available [facility] ([facility]) [address] [place], [address], 06/18/2019 07:08:45 06/17/19 20 06/18/2019 CMP, serum or plasm a creatinine 0.85 mg/dL 0.57-1 .00 Not Available [facility] ([facility]) [address] [place], [address], 06/18/2019 07:08:45 06/17/19 20 06/18/2019 CMP, serum or plasm a eGFR if nonafricn AM 73 mL/mi n/1.7 3 >59 Not Available [facility] ([facility]) [address] [place], [address], 06/18/2019 07:08:45 06/17/19 20 06/18/2019 CMP, serum or plasm a eGFR if africn AM 84 mL/mi n/1.7 3 >59 Not Available [facility] ([facility]) [address] [place], [address], 06/18/2019 07:08:45 06/17/19 20 06/18/2019 CMP, serum or plasm a BUN/creatini ne ratio 15 12-28 Not Available [facility] ([facility]) [address] [place], [address], 06/18/2019 07:08:45 06/17/19 20 06/18/2019 CMP, serum or plasm a sodium 140 mmol/ L 134-14 4 Not Available [facility] ([facility]) [address] [facility] [place], [address], 06/18/2019 07:08:45 06/17/19 20 06/18/2019 CMP, serum or plasm a potassium 4.5 mmol/ L 3.5-5. 2 Not Available [facility] ([facility]) [address] [facility] [place], [address], 06/18/2019 07:08:45 06/17/19 20 06/18/2019 CMP, serum or plasm a chloride 100 mmol/ L 96-106 Not Available [facility] ([facility]) [address] [place], [address], 06/18/2019 07:08:45 06/17/1906/18/2019 CMP, serum or plasm a carbon dioxide, total 25 mmol/ L 20-29 Not Available [facility] ([facility]) [address] [place], [address], 06/18/2019 07:08:45 06/17/19 20 06/18/2019 CMP, serum or plasm a calcium 9.2 mg/dL 8.7-10 .3 Not Available [facility] ([facility]) [address] [place], [address], 06/18/2019 07:08:45 06/17/1906/18/2019 CMP, serum or plasm a protein, total 6.5 g/dL 6.0-8. 5 Not Available [facility] ([facility]) [address] [place], [address], 06/18/2019 07:08:45 06/17/19 20 06/18/2019 CMP, serum or plasm a albumin 4.1 g/dL 3.8-4. 8 Not Available [facility] ([facility]) [address] [facility] [place], [address], 06/18/2019 07:08:45 06/17/19 20 06/18/2019 CMP, serum or plasm a globulin, total 2.4 g/dL 1.5-4. 5 Not Available [facility] ([facility]) [address] [place], [address], 06/18/2019 07:08:45 06/17/19 20 06/18/2019 CMP, serum or plasm a A/G ratio 1.7 1.2-2. 2 Not Available [facility] ([facility]) [address] [facility] [place], [address], 06/18/2019 07:08:45 06/17/19 20 06/18/2019 CMP, serum or plasm a bilirubin, total 0.3 mg/dL 0.0-1. 2 Not Available [facility] ([facility]) [address] [facility] [place], [address], 06/18/2019 07:08:45 06/17/19 20 06/18/2019 CMP, serum or plasm a alkaline phosphatase 66 IU/L 39-117 Not Available [facility] ([facility]) [address] [place], [address], 06/18/2019 07:08:45 06/17/19 20 06/18/2019 CMP, serum or plasm a AST (SGOT) 21 IU/L 0-40 Not Available [facility] ([facility]) [address] [place], [address], 06/18/2019 07:08:45 06/17/19 20 06/18/2019 CMP, serum or plasm a ALT (SGPT) 11 IU/L 0-32 Not Available [facility] ([facility]) [address] [place], [address], 06/18/2019 07:08:45 06/17/19 20 06/18/2019 CBC WBC 7.3 x10e3 /uL 3.4-10 .8 Not Available [facility] ([facility]) [address] [facility] [place], [address], 06/18/2019 07:08:46 06/17/19 20 06/18/2019 CBC RBC 4.96 x10e6 /uL 3.77-5 .28 Not Available [facility] ([facility]) [address] [facility] [place], [address], 06/18/2019 07:08:46 06/17/19 20 06/18/2019 CBC hemoglobin 17.0 g/dL 11.1-1 5.9 above high normal Not Available [facility] ([facility]) [address] [facility] [place], [address], 06/18/2019 07:08:46 06/17/19 20 06/18/2019 CBC hematocrit 48.9 % 34.0-4 6.6 above high normal Not Available [facility] ([facility]) [address] [facility] [place], [address], 06/18/2019 07:08:46 06/17/19 20 06/18/2019 CBC MCV 99 fL 79-97 above high normal Not Available [facility] ([facility]) [address] [facility] [place], [address], 06/18/2019 07:08:46 06/17/19 20 06/18/2019 CBC MCH 34.3 pg 26.6-3 3.0 above high normal Not Available [facility] ([facility]) [address] [facility] [place], [address], 06/18/2019 07:08:46 06/17/19 20 06/18/2019 CBC MCHC 34.8 g/dL 31.5-3 5.7 Not Available [facility] ([facility]) [address] [facility], [place], [address], 06/18/2019 07:08:46 06/17/19 20 06/18/2019 CBC RDW 11.8 % 11.7-1 5.4 Not Available [facility] ([facility]) [address], [place], [address], 06/18/2019 07:08:46 06/17/19 20 06/18/2019 CBC platelets 190 x10e3 /uL 150-45 0 Not Available [facility] ([facility]) [address], [place], [address], 06/18/2019 07:08:46 06/17/19 20 06/18/2019 CBC NRBC SOFTWARE VERIFICATION ENGINEER Not Available [facility] ([facility]) [address] [facility], [place], [address], 06/18/2019 07:08:46 06/17/19 20 06/18/2019 lipid panel , serum cholesterol, total 177 mg/dL 100-19 9 Not Available [facility] ([facility]) [address] [facility], [place], [address], 06/18/2019 07:08:46 06/17/19 20 06/18/2019 lipid panel , serum triglyceride s 74 mg/dL 0-149 Not Available [facility] ([facility]) [address] [facility], [place], [address], 06/18/2019 07:08:46 06/17/19 20 06/18/2019 lipid panel , serum HDL cholesterol 66 mg/dL >39 Not Available [facility] ([facility]) [address] [facility], [place], [address], 06/18/2019 07:08:46 06/17/19 20 06/18/2019 lipid panel , serum VLDL cholesterol po 15 mg/dL 5-40 Not Available [facility] ([facility]) [address] [facility], [place], [address], 06/18/2019 07:08:46 06/17/19 20 06/18/2019 lipid panel , serum LDL cholesterol calc 96 mg/dL 0-99 Not Available [facility] ([facility]) [address] [facility], [place], [address], 06/18/2019 07:08:46 06/17/19 20 06/18/2019 lipid panel , serum comment: SOFTWARE VERIFICATION ENGINEER Not Available [facility] ([facility]) [address] [facility], [place], [address], 06/18/2019 07:08:46 06/17/19 20 06/18/2019 lipid panel , serum LDL/HDL ratio 1.5 ratio 0.0-3. 2 LDL/H DL Ratio Men Women 1/2 Avg.R isk 1.0 1.5 Avg.R isk 3.6 3.2 2X Avg.R isk 6.2 5.0 3X Avg.R isk 8.0 6.1 Not Available [facility] ([facility]) [address] [facility], [place], [address], 06/18/2019 07:08:46 06/17/19 20 06/18/2019 T3, free, serum or plasm a triiodothyro nine (T3), free 2.5 pg/mL 2.0-4. 4 Not Available [facility] ([facility]) [address] [facility], [place], [address], 06/18/2019 07:08:47 01/09/20 20 01/08/2020 CT, chest , w/o contr ast No observ ation record ed. [address], [place], [address], 01/14/2020 12:32:15 01/10/20 20 01/10/2020 US, liver No observ ation record ed. [place] [id number] [facility] [address], [place], [address], 01/14/2020 12:32:16 01/15/20 20 01/08/2020 LDCT, chest , for lung cance r alix domingog No observ ation record ed. [email or web address] Not Available 2019 12:48:24 01/20/20 20 01/20/2020 XR, chest No observ ation record ed. [place] [address] [address], [place], [address], 01/24/2020 13:38:28 01/20/20 20 01/20/2020 biops y, lung, ct lizandro nce (PROC ) No observ ation record ed. [address], [place], [address], 01/24/2020 13:38:17 01/20/20 20 01/20/2020 XR, chest No observ ation record ed. [place] [address], [place], [address], 01/24/2020 13:37:58 01/24/20 20 01/20/2020 XR, chest No observ ation record ed. [email or web address] Not Available 2019 12:48:25 02/18/20 20 02/18/2020 MRI, brain + brain stem, w/wo contr ast No observ ation record ed. [place] [address], [place], [address], 03/05/2020 18:03:36 03/05/20 20 03/05/2020 PET-C T, skull base to mid-t high scan No observ ation record ed. [address] (Imaging) [address] [place], [place] [address]e [facility], [place], [address], 03/05/2020 20:23:44 03/18/20 20 03/18/2020 NM, bone scan No observ ation record ed. [address] [facility], [place], [address], 03/19/2020 11:08:17 05/27/19 21 05/11/2020 fluor oscop y (PROC ) No observ ation record ed. Not Available 2020 17:35:41 05/27/19 21 05/11/2020 XR, chest No observ ation record ed. [email or web address] [id number] Not Available 2020 17:35:56 07/21/19 21 07/20/2020 CT, chest , w/ contr ast No observ ation record ed. [place] [address], [place], [address], 07/29/2020 14:29:30 09/18/19 21 09/17/2020 CT, chest , w/ contr ast No observ ation record ed. [place] [address], [place], [address], 10/07/2020 18:18:43 12/22/19 21 12/21/2020 CT, chest , w/ contr ast No observ ation record ed. [place] [address], [place], [address], 12/24/2020 11:13:51 04/05/19 22 04/05/2021 imagi ng/di agnos tic resul t No observ ation record ed. [place] [id number], [place], [address], 04/26/2021 16:15:38 06/29/19 22 06/28/2021 CT, angio gram, chest , w/ contr ast No observ ation record ed. [place] [address] [address], [place], [address], 06/29/2021 09:22:34 09/17/19 22 09/16/2021 CT, chest , w/ contr ast No observ ation record ed. [place] [address], [place], [address], 10/04/2021 12:53:12 09/20/19 22 09/16/2021 CT, chest , w/ contr ast No observ ation record ed. [email or web address], [place], [address], 10/04/2021 12:53:40 11/24/19 22 11/23/2021 CT, angio gram, chest , w/ contr ast No observ ation record ed. [address], [place], [address], 11/25/2021 11:09:08 01/26/20 22 01/25/2022 CT, angio gram, chest , w/ contr ast No observ ation record ed. [address], [place], [address], 01/25/2022 14:27:42 06/01/19 23 05/31/2022 CT, chest , w/ contr ast No observ ation record ed. [place] [address] [address], [place], [address], 06/07/2022 10:02:02 09/03/19 23 09/01/2022 CT, abdom en + pelvi s, w/ contr ast No observ ation record ed. [place] [address], [place], [address], 09/06/2022 16:43:15 09/29/19 23 09/28/2022 CT, chest , w/ contr ast No observ ation record ed. [address], [place], [address], 10/01/2022 16:09:11 12/28/19 23 12/27/2022 CT, chest + abdom en + pelvi s, w/ contr ast No observ ation record ed. [address], [place], [address], 12/27/2022 14:15:52 04/03/19 24 04/03/2023 CT, chest , w/ contr ast No observ ation record ed. [address], [place], [address], 04/12/2023 05:40:43 06/21/19 24 06/19/2023 CT, chest , w/ contr ast No observ ation record ed. [address], [place], [address], 07/07/2023 10:11:02 06/22/19 24 06/19/2023 CT, chest , w/ contr ast No observ ation record ed. [place] [address] [address], [place], [address], 07/07/2023 10:13:20 09/25/19 24 09/25/2023 CT, abdom en + pelvi s, w/ contr ast No observ ation record ed. [place] [address], [place], [address], 10/04/2023 05:18:05 10/13/19 24 10/12/2023 PET, skull base to mid-t high No observ ation record ed. [address] [address], [place], [address], 10/16/2023 10:39:34 10/14/19 24 10/14/2023 XR, chest , 2 view No observ ation record ed. [address] [address], [place], [address], 10/16/2023 10:42:31 10/14/19 24 10/14/2023 CT, angio gram, chest , w/ contr ast No observ ation record ed. [address] [address], [place], [address], 10/16/2023 10:42:52 10/15/19 24 10/15/2023 US, duple x, venou s, lower extre mity No observ ation record ed. [place] [address] [address], [place], [address], 10/16/2023 10:43:07 10/16/19 24 10/16/2023 CT, heart , w/o contr ast, w/ coron andrea calci um score No observ ation record ed. [address], [place], [address], 10/16/2023 17:48:39 10/18/19 24 10/18/2023 XR, chest , 2 view No observ ation record ed. [place] [id number] [facility] [address], [place], [address], 10/29/2023 07:39:48 Result Notes None recorded. Problems Name Problem SNOMED Code Status Onset Date Resolution Date Notes Provider Name and Address Organization Details Recorded Time Essential hypertension 30333503 Active 2019 Freddy Gallagher MD Attn: Dionte han,[address] [facility], [place], [address], [place] [facility] 0 14:45:57 Multiple bruising 210871829 Active 2019 Freddy Gallagher MD Attn: Dionte han,[address] [facility], [place], [address], [place] [facility] 0 14:47:00 Palmar erythema 61683295 Active 2019 Freddy Gallagher MD Attn: Dionte han,[address] [facility], [place], [address], [place] [facility] 0 14:47:22 Erythrocytosis 323713328 Active 2019 Freddy Gallagher MD Attn: Dionte han,[address] [facility], [place], [address], [place] [facility] 0 18:03:17 Disease of liver 514069362 Active 2019 Freddy Gallagher MD Attn: Dionte han,[address] [facility], [place], [address], [place] [facility] 0 11:30:11 Anxiety 37012020 Active 2019 Freddy Gallagher MD Attn: Dionte han,[address] [facility], [place], [address], [facility] 0 12:59:08 Adenocarcinoma of lung 859147655 Active 2022 Freddy Gallagher MD Attn: Dionte han,[address] [facility], [place], [address], [facility] 3 13:24:53 Problem Notes Documentation Provider Name and Address Organization Details Recorded Time Banana Room Cutter Consult Note : This document (1 of 1) was received from [email or web address] Rapportive on 12/08/2023 through Direct Message along with the following message body content: Patient Name: YESSENIA CLEMENT. Patient : 1955. Patient . Rochelle Brito [facility], [place] - [facility] 01/11/2024 12:17:21 Procedures Surgical History Date Name Laterality Status Provider Name and Address Organization Details Recorded Time Tonsillectomy completed Esmer Clement [place] - [facility] 06/17/2019 13:57:56 Total hysterectomy completed Esmer Clement [place] - [facility] 06/17/2019 13:58:01 cholecystectomy completed Esmer vázquez [place] - [facility] 06/17/2019 13:58:20 Imaging Results None recorded. Procedure Notes None recorded. Medical Equipment None Reported. Allergies Allergen ID Allergen Name Allergen Category Reaction Reaction Severity Criticality Documentation Date Start Date Code Code System Note Provider Name and Address Organization Details Recorded Time 915134 sertralin e medicatio n abdominal pain severe Not available 01/28/2020 47825 RxNorm Freddy Gallagher MD Attn: Dionte han,[address] [facility], [place], [address], [facility] 0 12:48:26 Medications Name [...] Updated DateTime 2 172.72 cm 23 kg/m2 62146.4 5 g 98.1 [degF] 108 /min 99 % 99 % 110/60 mm[Hg] Esmer Clement [place] - [facility] 2 16:00:04 Date Recorded Body height Body mass index (BMI) Body weight Body temperature Oxygen saturation Oxygen saturation in Arterial blood by Pulse oximetry Heart rate Systolic And Diastolic Provider Name and Address Organization Details Last Updated DateTime 0 172.72 cm 27.5 kg/m2 35864.2 2 g 98.1 [degF] 96 % 96 % 81 /min 138/92 mm[Hg] Esmer Clement MA [facility] 0 13:59:53 Date Recorded Body height Body mass index (BMI) Body weight Heart rate Body temperature Oxygen saturation Oxygen saturation in Arterial blood by Pulse oximetry Systolic And Diastolic Provider Name and Address Organization Details Last Updated DateTime 3 172.72 cm 23.1 kg/m2 80219.0 4 g 101 /min 98.1 [degF] 98 % 98 % 126/78 mm[Hg] Esmer Clement MA [facility] 3 12:50:49 Date Recorded Body height Provider Name an d Address Organization Details Last Updated DateTime 01/28/2020 172.72 cm Esmer Clement MA [facility] 0 12:09:47 Social History Question Answer Notes LastModified by Organizat ion Details LastModified Time Tobacco Smoking Status Current Every Day Smoker Esmer Clement MA null, [facility] 06/17/2019 13:57:04 What Was The [...] ICD10 Code Diagnosis IMO Codes Diagnosis Note [id number] MD Severiano Butterfield (Adult Med) [address] [place] [address] 06/17/2019 13:44:23 06/18/2019 16:59:43 Essential hypertension 66031323 I10 Newly diagnosed Will start HCTZ 12.5 mg/d Multiple bruising 082153 006 T14.8XXA Palmar erythema 05701535 L53.8 [id number] MD Severiaon Butterfield (Adult Med) [address] [place] [address] 07/15/2019 12:28:58 07/16/2019 16:42:08 Essential hypertension 41122197 I10 Stop HCTZ. Check BP daily. Call in three days. Reevaluate [id number] MD Severiano Butterfield (Adult Med) [address] [place] [address] 01/28/2020 11:39:06 01/29/2020 11:05:44 Essential hypertension 45562160 I10 Disease of liver 6711936 03 K76.9 Anxiety 34989461 F41.9 [id number] MD Severiano Butterfield (Adult Med) [address] [place] [address] 05/04/2021 15:50:21 05/05/2021 14:24:36 Essential hypertension 50188798 I10 Cont current regime [id number] MD Severiano Butterfield (Adult Med) [address] [place] [address] 08/18/2022 12:33:29 08/19/2022 13:57:28 Essential hypertension 41255503 I10 Cont current regime Labs drawn regularly by oncology Disease of liver 0050584 03 K76.9 Adenocarci noma of lung 808798754 C34.90 F/U oncology as scheduled Health Concerns Section Related Observation LastModified by Organization Detai ls LastModified Time None Recorded Concern Status LastModified by Organization Details LastModified Time None Recorded Advance Directives Directive None Recorded Payers Insurance Date Sequence Insurance Name Policy Number Policy Hensley Covered Member ID Hensley Member ID Guarantor Name 01/28/2020 1 [employer] (POS) [id number] Yessenia Clement [id number] Yessenia Clement 05/04/2021 1 *SELF PAY* Dayana Clement 12/29/2023 [place]ICARE [place]: N[place] - [facility] Yessenia Clement [id number] Yessenia Clement 12/29/2023 2 [employer] (MEDICARE SUPPLEMENT) Yessenia Clement [id number] Yessenia Clement 12/29/2023 1 [place] Yessenia Clement [id number] Yessenia Clement Notes Date Note Type [...] sensations Freddy Gallagher MD Attn: [address] [place], [address], [facility] 06/17/2019 15:01:07 07/15/2019 text/html Telephone visit due to Covid-19 precautions. Pt has been unable to tolerate 12.5 mg HCTZ. Feels weak, lightheaded about four hours after med is taken. She takes her BP daily. Systolic averages 130's while diastolic 85 - 92. Freddy Gallagher MD Attn: [address] [place], [address], [facility] 07/15/2019 13:09:34 01/28/2020 text/html Telephone visit due to Covid-19 precautions. She is requesting refills on BP meds. Recently diagnosed with non-small cell ca lung. Experiencing anxiety off and on Freddy Gallagher MD Attn: [address] [place], [address], [facility] 01/28/2020 13:03:03 05/04/2021 text/html Needs refills on BP meds. Currently being treaed for adenoca left lung Freddy Gallagher MD Attn: [address]ing[address] [facility], [place], [address], [facility] 05/04/2021 16:31:53 08/18/2022 text/html Here for regular visit. She feels good Freddy Gallagher MD Attn: Accounting,[address], [place], [address], [facility] 08/18/2022 13:30:20 OBGyn Episode No OBEpisode recorded.
--- OUTSIDE RECORDS SUMMARY | 2025-01-17 16:24 | XMS_ITS | Clinical Summary ---
Author Organization [facility] Forrest Avery Address [address] [place] [address] Care Team Providers Care Phone Counselor Name Role Phone Unavailable Primary Care Provider Unavailabl e Allergies Active Allergy Reactions Criticality Noted Date Comments Pzmgwun-Zmw-Tax Reductase Inhibitors Muscle Pain Low 08/09/2024 Medications acetaminophen (TYLENOL) 325 mg tablet Take 325 mg by mouth every 4 hours as needed. Active lidocaine-lynn locaine (EMLA) 2.5-2.5 % Cream Apply to affected area see administration instructions. 25 Gram 1 021 Active apixaban (Eliquis) 5 mg tablet Take [...] 24 hours. Active naloxone (NARCAN) 4 mg/spray [place], Non-Aerosol EMERGENCY USE ONLY: Administer 1 spray [...] 200 mg by mouth daily. 024 Active fluticasone-u meclidinium-v ilanterol (TRELEGY ELLIPTA) 100-62.5-25 mcg Disk with Device Take 1 Puff by inhalation daily. Active sotorasib 240 mg Tablet Take 4 tablets (960 mg) by mouth daily. 120 Tablet 2 025 Active ALPRAZolam (XANAX) 0.25 mg tabletIndicat ions:Anxiety state TAKE 1 TABLET BY MOUTH EVERY 6 TO 8 HOURS NEEDED 90 Tablet 1 025 Active gabapentin (NEURONTIN) 300 mg capsuleIndica tions:Non-sma ll cell cancer of left lung (CMS/HCC) Take 1 capsule by mouth daily at bedtime. 30 Capsule 2 025 Active gabapentin (NEURONTIN) 300 mg capsuleIndica tions:Non-sma ll cell cancer of left lung (CMS/HCC) TAKE 1 CAPSULE BY MOUTH DAILY AT BEDTIME 30 Capsule 2 025 2024 Discontinued(R eorder) ALPRAZolam (XANAX) 0.25 mg tabletIndicat ions:Anxiety state TAKE 1 TABLET BY MOUTH EVERY 6 TO 8 HOURS NEEDED 90 Tablet 025 2024 Discontinued Active Problems Problem Noted Date Diagnosed Date Liver lesion 11/27/2024 Low back pain 08/09/2024 Heart failure with reduced ejection fraction History of lung cancer 08/09/2024 Anxiety 08/09/2024 Atrial flutter 08/09/2024 Non-small cell cancer of left lung 03/27/2020 Erythrocytosis 11/15/2019 Encounter for screening for lung cancer 11/15/19 Elevated SGOT (AST) 11/15/2019 Resolved Problems Problem Noted Date Diagnosed Date Resolved Date Paroxysmal atrial fibrillati on with rapid ventricular response 08/09/2024 08/09/2024 Encounters Date Type Department Care Team Description 01/06/2025 4:30 PM CDT Telephone Check Up [facility] Oncology and Hematology [facility] [address] [place] [address] Malik Lewis MD 01/06/2025 Telephone [facility] Oncology and Hematology [facility] [address] [place] [address] Malik Lewis MD Medication Refill 12/27/2024 Refill [facility] Oncology and Hematology - [place] [address] [place] [address] Malik Lewis MD Anxiety state 12/19/2024 8:30 AM CDT Office Visit [facility] Oncology and Hematology - [place] [address] [place] [address] Malik Lewis MD Non-small cell cancer of left lung (CMS/HCC) (Primary Dx) 12/05/2024 7:43 AM CDT - 12/05/2024 1:46 PM CDT Hospital Encounter [facility] [address] [place] [address] Kimber Poe MD 4, [facility] Liver lesion Discharge Disposition: Home or Self Care 12/05/2024 Refill [facility] Oncology and Hematology [facility] [address] [place] [address] Malik Lewis MD 12/03/2024 External Device Data STL ABSTRACTION Provider, Abstract 11/28/2024 Refill [facility] Oncology and Hematology [facility] [address] [place] [address] Malik Lewis MD 11/27/2024 4:00 PM CDT Telephone Check Up [facility] Oncology and Hematology [facility] [address] [place] [address] Kimber Poe MD Non-small cell cancer of left lung (CMS/HCC) (Primary Dx); Liver lesion 11/26/2024 Orders Only [facility] Oncology and Hematology - [place] [address] [place] [address] Malik Lewis MD 11/13/2024 11:15 AM CDT Office Visit [facility] Oncology and Hematology [facility] [address] [place] [address] Malik Lewis MD Liver lesion (Primary Dx) 11/13/2024 Refill [facility] Oncology and Hematology - [place] [address] [place] [address] Malik Lewis MD 11/12/2024 Orders Only [facility] Oncology and Hematology [facility] [address] [place] [address] Malik Lewis MD 11/11/2024 Refill [facility] Oncology and Hematology - [place] [address] [place] [address] Malik Lewis MD Anxiety state 11/06/2024 External Device Data STL ABSTRACTION Provider, Abstract 11/05/2024 External Device Data STL ABSTRACTION Provider, Abstract 11/05/2024 Orders Only [facility] Oncology and Hematology [facility] [address] [place] [address] Malik Lewis MD 10/31/2024 Refill [facility] Oncology and Hematology [facility] [address] [place] [address] Malki Lewis MD 10/31/2024 Telephone [facility] Imaging Services [facility] [address] [facility] [address] [place] [address] Daria Cason NP Follow Up 10/30/2024 12:48 PM CDT Anesthesia Event [facility] Interventional Radiology S [facility] [address] [place] [address] Thom Steele MD Kertz, Maria L, HODAN 10/30/2024 10:09 AM CDT - 10/30/2024 5:33 PM CDT Hospital Encounter [facility] [address] [place] [address] Malik Lewis MD 14, [facility] Ir Thom Steele MD Compression fracture of T9 vertebra with routine healing, subsequent encounter Discharge Disposition: Home or Self Care 10/25/2024 [facility] Oncology and Hematology [facility] [address] [place] [address] Malik Lewis MD Anxiety state 10/25/2024 [facility] Oncology and Hematology [facility] [address] [place] [address] Malik Lewis MD Anxiety state from Last 3 Months Family History Medical History Relation Name Comments Cancer Father Heart Disease Father Cancer Mother Heart Disease Mother Relation Name Status Comments Brother Alive Father Mother Sister Alive Social History Tobacco Use Types Packs/Day Years Used Date Smoking Tobacco: Some Days Cigarettes 1 41.3 Started: 10/02/2023 Smokeless Tobacco: Never Tobacco Cessation:Ready [...] Sign Reading Time Taken Comments Blood Pressure 130/82 12/19/2024 8:29 AM CDT Pulse 73 12/19/2024 8:27 AM CDT Temperature 36.6 C (97.8 F) 12/19/2024 8:27 AM CDT Respiratory Rate 16 12/19/2024 8:27 AM CDT Oxygen Saturation 90% 12/19/2024 8:27 AM CDT Inhaled Oxygen Concentration - - Weight 61.4 kg (135 lb 6.4 oz) 12/19/2024 8:27 A M CDT Height 172.7 cm (5' 8) 12/05/2024 7:56 AM CDT Body Mass Index 20.59 12/05/2024 7:56 AM CDT Plan of Treatment Health Maintenance Due Date Last Done Comments DTAP/TDAP/TD VACCINES (1 - Tdap) 1973 PNEUMOCOCCAL VACCINE 50+ YEARS (1 of 2 - PCV) 12/23/18 74 BREAST CANCER SCREENING 1994 COLORECTAL SCREENING 12/24/1999 Colorectal Cancer Screening 12/24/1999 FIT-DNA Q 3 years 12/24/1999 FIT/FOBT Q 1 year 12/24/1999 Flex Sig/CT Colonography Q 5 years 12/24/1999 RSV VACCINE (60+ or ) (1 - Risk 50-74 years 1-dose series) 2004 ZOSTER VACCINE (1 of 2) 2004 OSTEOPOROSIS SCREENING 12/24/2019 INFLUENZA VACCINE (#1) 2024 Medical Devices Implanted Type Area Machine Skiver Device Identifier Shelf Expiration Date Model / Serial / Lot Mix Kyphon [id number] - [id number] Implanted:Qty : 1 on 10/30/2024 by Matthew Thompson MD at [facility] Cement N/A: Spine Thoracic [employer] - SPINAL fka KYPHON [id number] 07/18/2027 [id number] / / [id number] Procedures Procedure Name Priority Date/Time Associated Diagnosis Comments [facility] NORMAL BLOOD Routine 10:29 AM CDT Non-small cell cancer of left lung (CMS/HCC) [facility] DNA AND RNA SOLID TUMOR Routine 12/19/2024 10:29 AM CDT Non-small cell cancer of left lung (CMS/HCC) PATHOLOGY Pathology 12/05/2024 11:[address] GUIDED BIOPSY Routine 12/05/2024 11:0 7 AM CDT Liver lesion PROTIME-INR Stat 12/05/2024 8:19 AM CDT CBC WITH DIFFERENTIAL Stat 12/05/2024 8:19 AM CDT PET BONE IMG W CT SKL BSE MID THG Routine 11/19/2024 3:13 PM CDT COMPREHENSIVE METABOLIC PANEL Routine 11/11/2024 10:[address] CHEST W CONTRAST Routine 11/05/2024 9 :55 AM CDT IR SPINAL INTERVENTION Routine 2:08 PM CDT Compression fracture of T9 vertebra with routine healing, subsequent encounter PATHOLOGY Pathology 10/30/2024 1:45 PM CDT [place] ANES INSERT ENDOTRACHEAL AIRWAY Routine 10/30/2024 1:24 PM CDT from Last 3 Months Results * [facility] X[facility] NORMAL BLOOD (12/19/2024 10:29 AM CDT) [facility] 12/19/2024 11:00 PM CDT [facility] Comment:See NGS Report for R esults. Blood specimen (specimen) 12/19/2024 10:29 AM CDT 12/19/2024 10:30 AM CDT Malik Lewis MD MOLECULAR ORDERABLES Final Resu lt [facility] [address], [address] [place] [address], [facility] [address], [address] [place] [address] * PATHOLOGY (12/05/2024 11:21 AM CDT) Only the most recent of2 resultswithin the time period is included. CASE REPORT Surgical Pathology Report Case: [id number] Authorizing Provider: Jihan Doe MD Collected: 12/05/2024 11:21 AM [facility] Received: 12/05/2024 02:14 PM Dequan Pathologist: Perla Gayle MD Specimen: Liver, liver tissue 10:43 AM CDT [facility] ADDENDUM 1 A request for [facility] was received on 12/20/[address] Malik Lewis. This test was performed on tissue from case [id number]. The case report, slides, and blocks for this case were retrieved from archives. The pathologist reviewed the original pathology report, examined candidate slides, and selected the most appropriate block(s). This selected material was forwarded to [facility] where the test was performed. The final report will be issued directly to the requesting physician. 10:43 AM [facility] Addendum electronically signed by Perla Gayle MD on 12/20/2024 at 1042 CDT FINAL DIAGNOSIS Liver, mass, biopsy: - Metastatic poorly differentiated carcinoma. 10:43 AM [facility] at 1703 CDT GROSS DESCRIPTION Received in one container labeled Yessenia Wallis and are 4 soft boudreaux-white tissue cores ranging from 1 to 1.7 cm in length and each measuring less than 0.1 cm in diameter. Entirely submitted labeled A1 through A2. ARC 10:43 AM [facility] MICROSCOPIC DESCRIPTION The slides are labeled [id number] and Yessenia Wallis. Sections show all cores involved by a metastatic poorly differentiated carcinoma, composed of epithelioid cells with hyperchromatic nuclei and scant eosinophilic cytoplasm. There is brisk mitotic activity and apoptosis. Lymphovascular invasion is present. The tumor cells show diffuse positive staining for pancytokeratin, CK7, patchy staining for CD56 and weak nuclear staining for PAX8. The tumor cells are negative for CK20, TTF-1, synaptophysin, chromogranin, Napsin A, GATA3, p16, ER, WT1, p63 and CDX2. The Ki-67 is high, approximately 90% and majority of tumor cells show nuclear staining for p53. The histologic features and immunostaining profile are nonspecific. Please correlate clinically with imaging studies for potential primary site. The patient's clinical history of lung non-small cell carcinoma is noted. However, tumor cells are negative for TTF-1 and Napsin A. Molecular test/[facility] can be performed upon request. 10:43 AM T [facility] OPERATIVE PROCEDURE liver mass biopsy 10:43 AM [facility] CLINICAL INFORMATION Liver mass biopsy Dx: Liver lesion 10:43 AM [facility] COMMENT Special stain, immunohistochemical, and/or in situ hybridization results are interpreted with controls that demonstrate appropriate staining reactions. Note on use of immunohistochemistry reagents and in situ hybridization probes: These tests were developed and their performance characteristics determined by [facility], Department of Laboratory Medicine. It has [...] part or completely in the following laboratories: [facility], [place] #[id number] [address] [place] [address] [facility], [place] #[id number] [address] [place] [address] [facility], [place] #[id number] [place] [address] This report was created with the [employer]est[employer] voice-activated dictation system. Inherent to this system is the possibility of syntax, grammar, punctuation and other errors that could impact the interpretation of the report. If there are interpretative questions about aspects of this report, please contact the performing pathologist. 10:43 AM [facility] Tissue ENTIRE LIVER / Unknown Collection / Unknown 12/05/2024 11:21 AM CDT 12/05/2024 2:14 PM CDT Comment:Liver mass biopsyDx: Liver lesion us Jihan Doe MD PATHOLOGY/CYTOLOGY ORDERABLES Edited Result - Final [facility] CLIA# [id number] [address] [place] [address] * CT GUIDED BIOPSY (12/05/2024 11:07 AM CDT) Anatomical Region Laterality Modality Computed Tomogra phy 12/05/2024 10:5 6 AM CDT Impressions 12/05/2024 11:27 AM CDT IMPRESSION: Successful CT-guided left liver lesion biopsy. PLAN/RECOMMENDATIONS: Patient was advised to follow-up with the referring physician for sampling results. Narrative 12/05/2024 11:27 AM CDT PROCEDURE/EXAM(S): 1. LEFT LIVER LESION BIOPSY. 2. CT GUIDANCE. TIME/DATE: 12/05/2024 11:07 AM. DICTATION LOCATION: Location - [facility] PHYSICIANS: Jihan Doe MD. CLINICAL INFORMATION/INDICATION: Female of 68 years age with See Diagnosis Liver lesion presents for biopsy. CONSENT: The indications, procedures, benefits, and risks (including but not limited to infection, organ damage, and life-threatening bleeding) were discussed and informed consent was obtained for the medical record per protocol. SEDATION: None. TECHNIQUE/FINDINGS: Patient identification and preprocedural timeout was performed per protocol. Maximum sterile technique was utilized for all aspects of the procedure. CT imaging of the targeted lesion was performed with adjustment of mA according to patient size and/or iterative reconstruction technique. CT image(s) before biopsy showed a safe biopsy path to the targeted lesion. The overlying subcutaneous tissues were infiltrated with local anesthetic and the left liver mass was accessed with a 18 gauge biopsy device compatible trocar using CT guidance. CT image(s) showed the biopsy trocar well positioned at the targeted site. Four biopsy core(s) of the targeted lesion were obtained using coaxial technique. At the end of the procedure, the devices were removed and a sterile dressing was applied. The patient tolerated the procedure well. ESTIMATED BLOOD LOSS: < 5 cc. COMPLICATIONS: None. Procedure Note Jihan Doe MD - 12/05/2024 PROCEDURE/EXAM(S): 1. LEFT LIVER LESION BIOPSY. 2. CT GUIDANCE. TIME/DATE: 12/05/2024 11:07 AM. DICTATION LOCATION: Location - [facility] PHYSICIANS: Jihan Doe MD. CLINICAL INFORMATION/INDICATION: Female of 68 years age with See Diagnosis Liver lesion presents for biopsy. CONSENT: The indications, procedures, benefits, and risks (including but not limited to infection, organ damage, and life-threatening bleeding) were discussed and informed consent was obtained for the medical record per protocol. SEDATION: None. TECHNIQUE/FINDINGS: Patient identification and preprocedural timeout was performed per protocol. Maximum sterile technique was utilized for all aspects of the procedure. CT imaging of the targeted lesion was performed with adjustment of mA according to patient size and/or iterative reconstruction technique. CT image(s) before biopsy showed a safe biopsy path to the targeted lesion. The overlying subcutaneous tissues were infiltrated with local anesthetic and the left liver mass was accessed with a 18 gauge biopsy device compatible trocar using CT guidance. CT image(s) showed the biopsy trocar well positioned at the targeted site. Four biopsy core(s) of the targeted lesion were obtained using coaxial technique. At the end of the procedure, the devices were removed and a sterile dressing was applied. The patient tolerated the procedure well. ESTIMATED BLOOD LOSS: < 5 cc. COMPLICATIONS: None. IMPRESSION: Successful CT-guided left liver lesion biopsy. PLAN/RECOMMENDATIONS: Patient was advised to follow-up with the referring physician for sampling results. us Kimber Poe MD CT ORDERABLES Final Resu lt * (ABNORMAL) CBC WITH DIFFERENTIAL (12/05/2024 8:19 AM CDT) WBC 9.4 4.0 - 9.8 K/uL 12/05/2024 10:25 AM CDT [employer] [facility] RBC 3.99 3.90 - 4.90 M/uL 12/05/2024 10:25 AM CDT [employer] [facility] HEMOGLOBIN 13.6 11.8 - 14.8 g/dL 12/05/2024 10:25 AM CDT [employer] [facility] HEMATOCRIT 43.0 35.5 - 44.0 % 12/05/2024 10:[address] [facility] MCV 107.8(H) 82.0 - 99.0 fL 12/05/2024 10:25 AM CDT [employer] [facility] MCH 34.1(H) 27.2 - 32.6 pg 12/05/2024 10:25 AM CDT [employer] [facility] - [facility] MCHC 31.6 31.5 - 35.5 g/dL 12/05/2024 10:25 AM CDT [employer] [facility] RDW 13.5 11.5 - 14.5 % 12/05/2024 10:25 AM CDT [employer] [facility] - [facility] RDW-STDEV 54.1(H) 37.1 - 48.7 fL 12/05/2024 10:25 AM CDT [employer] [facility] PLATELETS 82(L) 140 - 350 K/uL 12/05/2024 10:25 AM [employer] [facility] Comment:Platelets verified b y smear review. MPV 10.5 9.3 - 12.4 fL 12/05/2024 10:25 AM [employer] [facility] - [facility] NEUTROPHILS 78 % 12/05/2024 10:25 AM [employer] [facility] - [facility] LYMPHOCYTES 7 % 12/05/2024 10:25 AM CDT [employer] [facility] - [facility] MONOCYTES 14 % 12/05/2024 10:25 AM CDT [employer] [facility]ORY [facility] - . [facility] EOSINOPHILS 1 % 12/05/2024 10:25 AM [employer] [facility] - [facility] BASOPHILS 0 % 12/05/2024 10:25 AM [employer] [facility] - [facility] IMMATURE GRANULOCYTES 0 % 12/05/2024 10:25 AM [employer] [facility] - [facility] NEUTROPHIL ABSOLUTE 7.28(H) 1.90 - 7.00 K/uL 12/05/2024 10:25 AM CDT [employer] [facility]ATORY [facility] - . [facility] LYMPHOCYTE ABSOLUTE 0.68(L) 0.70 - 4.50 K/uL 12/05/2024 10:25 AM CDT [employer] LABORATORY SERVICES - . [facility] MONOCYTE ABSOLUTE 1.32(H) 0.10 - 1.30 K/uL 12/05/2024 10:25 AM CDT [employer] [facility] - [facility] EOSINOPHIL ABSOLUTE 0.08 0.00 - 0.70 K/uL 12/05/2024 10:25 AM CDT [employer] [facility]ORY [facility] - . [facility] BASOPHILS ABSOLUTE 0.01 0.00 - 0.20 K/uL 12/05/2024 10:25 AM CDT [facility] IMMATURE GRANULOCYTES ABSOLUTE 0.02 0.00 - 0.03 K/uL 12/05/2024 10:25 AM CDT [facility] Blood Venipuncture / Unknown 12/05/2024 8:19 AM CDT 12/05/2024 9:44 AM CDT us Raji Ward MD HEMATOLOGY ORDERABLES F inal Result [facility]# [id number] [address] [facility] [place] [address] * PROTIME-INR (12/05/2024 8:19 AM CDT) PROTIME 14.2 12.7 - 15.1 Seconds 12/05/2024 10:28 AM CDT [facility] INR 1.1 0.9 - 1.1 12/05/2024 10:28 AM CDT [facility] Blood Venipuncture / Unknown 12/05/2024 8:19 AM CDT 12/05/2024 9:44 AM CDT Narrative [facility] - 12/05/2024 10:28 AM CDT INR Therapeutic Range: Adult: 2.0 - 3.0 for pulmonary embolism or prophylaxis against venous thrombosis or systemic embolization. 2.0 - 3.0 for patients with tissue heart valves. 2.5 - 3.5 for patients with mechanical heart valves or post MT. Pediatric (12 years and under): 1.5 - 3.0 Although the target range in children is not well established, INR values of 1.5 - 3.0 are recommended for most patients. Higher values have been used in children with prosthetic cardiac valves and hereditary clotting disorders. Monitor (<3 days) therapeutic ranges have not been established. us Raji Ward MD HEMATOLOGY ORDERABLES F inal Result [facility]# [id number] [place] [address] * PET BONE IMG W CT SKB MDTH (11/19/2024 3:13 PM CDT) Anatomical Region Laterality Modality Positron Emissio n Tomography (PET) us Malik Lewis MD PE ORDERABLES Final Result * COMPREHENSIVE METABOLIC PANEL (11/11/2024 10:26 AM [...] vertebral body biopsy. DICTATION LOCATION: Location 1, [facility] Narrative 10/31/2024 9:52 AM CDT 1. FLUOROSCOPIC-GUIDED [...] T9 vertebral body biopsy. DICTATION LOCATION: Location [facility] Malik Lewis MD IR ORDERABLES Final Result * [place] ANES INSERT ENDOTRACHEAL AIRWAY (10/30/2024 1:24 PM CDT) Narrative Thom Steele MD - 10/30/2024 1:24 PM CDT Thom Steele MD 10/30/2024 1:25 PM Airway Date/Time: 10/30/2024 1:24 PM Location: OR Plan: elective intubation Patient Identity Confirmed by: Verbally with patient Airway: not difficult Staffing Performed: Anesthesiologist (/DO) Authorized by: Thom Steele MD Performed by: [...] Additional Procedure Information: atraumatic and dentition unchanged Thom Steele MD PROCEDURE/MINOR SURGICAL ORD ERABLES Final Result from Last 3 Months Insurance MEDICARE PART A AND B [facility] RX [employer] Medicare Part D MEDICARE PART A AND B [facility] Advance Directives For more information, please contact: [phone] * Full Code (Latest Code Status on File) Date Activated Date Inactivated Comments 10/30/2024 12:09 PM 10/30/2024 7:34 PM * Full Code Date Activated Date Inactivated Comments 08/09/2024 2:42 PM 08/10/2024 6:47 PM
--- OUTSIDE RECORDS SUMMARY | 2025-01-17 16:24 | XMS_ITS | Encounter Summary ---
Author Organization [facility] Address [address] [place] [address] Care Team Providers Care Recruiting Team Lead Name Role Phone Freddy Gallagher MD Primary Care Provider Encounter Details Date Type Department Care Team (Late st Contact Info) Description 03/25/2020 Chart Note [facility] Radiation Therapy [address] [place] [address] [place] [address] [place] [address] Social History Tobacco Use Types [...] COVID-19? 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 [employer] documented as of this encounter Plan of Treatment Not on file documented as of this encounter Visit Diagnoses Not on filedocumented in this encounter Care Teams Recruiting Team Lead Relationship Specialty Start Date End Date Freddy Gallagher MD [address] [place] [address] PCP - General Gastroenterology 09/24/19 05/15/24 documented as of this encounter
--- OUTSIDE RECORDS SUMMARY | 2025-01-17 16:24 | XMS_ITS | Clinical Summary ---
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 Take 1 tablet [...] Description 11/22/2024 9:45 AM CDT Office Visit [facility] [address] [place] [address] Regan Peraza MD HFrEF (heart failure with [...] on file 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
--- OUTSIDE RECORDS SUMMARY | 2025-01-17 16:24 | XMS_ITS | Clinical Summary ---
Author Organization [facility] Address [address] [place] [address] Care Team Providers Care International Broadcast Music Librarian Name Role Phone Freddy Gallagher MD Primary Care Provider Malik Lewis MD Unavailable [phone] Source Comments [facility],non-owned Affiliates and Associated Physician Practices is amultiple site organization consisting of ambulatory clinics and hospital sitesin [place], [place], [place] and [place]. This disclosure is being madepursuant to the Care Everywhere program and may not contain all information available regarding this patient. 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 Oxygen Saturation 96% 11/01/2023 3:03 PM CDT [...] LIPID TESTING 1954 MAMMOGRAM 1954 MEDICARE AWV 12 MONTHS 1954 HEPATITIS C SCREENING 12/18/1972 DTAP/TDAP/TD VACCINES (1 - Tdap) 1973 PNEUMOCOCCAL VACCINE 50+ (1 of 1 - PCV) 2004 ZOSTER VACCINE (1 of 2) 2004 DEPRESSION SCREENING 03/20/2024 COVID-19 VACCINE (1 - 2023-2 5 season) 2024 INFLUENZA VACCINE (#1) 2024 Respiratory Syncytial Virus (RSV) Vaccine Pt: or [...] Insurance MEDICARE [employer]ICARE [employer] Care Teams International [employer]cast Music Librarian Relationship Specialty Start Date End Date Freddy Gallagher MD [address] [place] [address] PCP - General 01/28/20 Malik Lewis MD [address] [address] Medical Oncology 01/11/24
[2025-01-17 16:30] LABS: Alanine Aminotransferase 17 U/L (6-35); Albumin Level 3.1 g/dL (3.5-5.1); Alkaline Phosphatase 162 U/L (38-126); Anion Gap 3 mmol/L (4-12); Aspartate Amino Transferase 251 U/L (14-36); Bilirubin,Total 0.7 mg/dL (0.2-1.3); Blood Urea Nitrogen 17 mg/dL (7-17); Calcium 8.1 mg/dL (8.4-10.2); Carbon Dioxide 29 mmol/L (22-30); Chloride 97 mmol/L (98-107); Estimated CRCL calculation 45 ml/min; Estimated Glomerular Filt Rate 53; Glucose 111 mg/dL (65-110); Potassium 4.4 mmol/L (3.4-5.0); Sodium 129 mmol/L (137-145); Total Protein 5.6 g/dL (6.3-8.2)
[2025-01-17 16:47] LABS: Band Neutrophils Percent 8 % (0-6); Lymphocytes Absolute Manual 1.38 K/mm3 (1.1-4.5); Lymphocytes Percent Manual 4.0 % (18-44); Monocytes Absolute Manual 1.38 K/mm3 (0.1-0.90); Monocytes Percent Manual 4 % (3-9); Neutrophils Absolute Manual 31.74 K/mm3 (1.3-6.7); Neutrophils Percent Manual 84 % (46-73); Total Cells Counted 100
[2025-01-17 16:48] LABS: Hypochromasia 1+; Schistocytes None Seen
[2025-01-17 16:59] LABS: NT Pro B Type Natriuretic Pept 4630 pg/mL (19.9-100)
--- NOTE | 2025-01-17 18:49 | PC.NURSE ---
1set of blood cultures right hand. 2nd set of blood cultures left hand. Both blood cultures drawn via kurin device.
[2025-01-17] MEDS: DOXYCYCLINE IV 100 MG in SODIUM CHLORIDE 0.9% IV 100 ML IVPB (18:52)
[2025-01-17] MEDS: cefTRIAXone 1 GM in SODIUM CHLORIDE 0.9% IV 50 ML 100 ML IVPB (18:52)
[2025-01-17] MEDS: SODIUM CHLORIDE 0.9% IV 500 ML 999 ML IV CONT (18:52)
[2025-01-17] MEDS: ALBUMIN HUMAN 5% 250 ML IV CONT (20:31)
--- NOTE | 2025-01-17 21:39 | ADMGEN ---
This patient, Yessenia Wallis, was admitted to IMU Room 204-01 on 01/17/25 at 2136. Patient/family oriented to hospital policies and general routines including ID bracelet, bed and alarms, visiting hours, pain management, procedures, bathroom and other care routines, personal items, smoking policy, room service/diet, and visiting hours. Information on how to activate the Rapid Response Team has been discussed. Patient/Family are encouraged to report perceived risks to care and to ask questions if they do not understand what they are told or what they should do.
[2025-01-18] VITALS (25 sets, daily range): BP systolic 101–129; BP diastolic 56–76; PULSE 61–130; RESP 20–24; TEMP 36.6–37; O2SAT 90–100
[2025-01-18] MEDS: APIXABAN 5 MG TABLET PO ×3 (00:02→20:12)
[2025-01-18] MEDS: ALPRAZolam (*CRX) 0.25 MG TABLET PO ×3 (00:02→20:13)
[2025-01-18] MEDS: GABAPENTIN 300 MG CAPSULE PO ×2 (00:02→20:12)
[2025-01-18] MEDS: IBUPROFEN 400 MG TABLET PO (00:03)
--- NOTE | 2025-01-18 01:28 | PM.IMHP ---
H&P: HPI History of Present Illness Date/Time: 01/17/25 2300 Chief Complaint: Shortness of breath with dyspnea Narrative: This is a 69-year-old female patient who is receiving oral chemotherapy for non-small cell lung cancer with progressive disease with stage II disease. She stated that her cancer has metastasized to the liver. The patient has been having worsening shortness of breath and does not wear oxygen at home. She stated this is similar to when she had an exacerbation of CHF. She does have some mild edema to her lower extremities. She stated that she was taking some old Lasix from a year ago. Her white count is up to 34.5. Her sodium was 129, creatinine is 1.03, GFR is 53, glucose is 111, and calcium was low at 8.1. Her BNP was noted to be 4630 which had been up to the 16,400 on 10/14/2023. Chest x-ray was read as bilateral pneumonia left lung nodule PT CT suggested to assess. The lung nodule appears increased in size compared to previous CT. Chest CT was read as1. Increase in size of now small to moderate right and very small left pleural effusions with progression of associated compressive atelectasis in the dependent lower lobes, right greater than left. 2. No significant interval change in a 4.0 x 2.3 cm lenticular mass in the posterior lingula consistent with biopsy-proven lung cancer or cervical scattered pulmonary nodules with increased FDG uptake on prior PET/CT suspicious for metastatic disease. 3. Interval increase in size of a 1.8 x 1.6 cm spiculated nodule with surrounding reticulonodular opacities in the posterior basilar segment of the right lower lobe which could represent progression of metastatic disease with lymphangitic carcinomatosis and/or focal pneumonia with surrounding endobronchial spread of disease. The patient was started on Rocephin and doxycycline. The patient is being admitted to inpatient status on the date of service of 01/17/2025. Review of Systems Constitutional: Constitutional: Reports as per HPI and Reports no additional constitutional complaints Eyes: Eyes: Reports as per HPI and Reports no additional eye complaints ENT: Reports system reviewed and no additional complaints, except as documented and Reports Normal hearing present Cardiovascular: Cardiovascular: Reports no additional cardiovascular complaints Respiratory: Respiratory: Reports as per HPI and Reports no additional respiratory complaints Gastrointestinal: Gastrointestinal: Reports as per HPI and Reports no additional gastrointestinal complaints Genitourinary: Genitourinary: Reports no additional female genitourinary complaints Musculoskeletal: Musculoskeletal: Reports no additional musculoskeletal complaints Integumentary/Breasts: Skin/Breast: Reports system reviewed and no additional complaints, except as docu Neurologic: Reports system reviewed and no additional complaints, except as documented and Reports Normal hearing present Psychiatric: Psychiatric: Reports no additional psychiatric complaints and Reports as per HPI Hematologic/Lymphatic: Hematologic/Lymphatic: Reports no additional hematologic/lymphatic complaints Allergic/Immunologic: Allergic/Immunologic: Reports no additional allergic/immunologic complaints [facility] Past Medical History Medical History (Updated 01/21/25 @ 10:09 by Venus Sheehan MD) CHF (congestive heart failure) 08/14/2024 Summary 1. Left ventricular chamber dimension is normal. 2. Left ventricular systolic function is normal, estimated at 50-55. 3. The left ventricular diastolic function is grade I diastolic dysfunction. 4. Right ventricular systolic function is normal. 5. There is mild to moderate mitral valve regurgitation. 6. There is mild tricuspid valve regurgitation. 7. There is trivial pericardial effusion. Port-A-Cath in place Chronic anticoagulation Due to atrial fibrillation Paroxysmal atrial fibrillation 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 Hypertension Surgical History Surgical History History of insertion of tunneled central venous catheter (CVC) with port (04/2020) History of laparoscopy History of hysterectomy (1997) History of tonsillectomy (1965) History of cholecystectomy (1998) Family History Family History Grandparent Lung cancer Mother Skin cancer FH: kidney cancer Breast cancer Small bowel cancer Heart problem Congestive heart failure Pacemaker Mother No problems noted. Father Skin cancer Myocardial infarct Heart problem Pacemaker Cardiac defibrillator in place Sibling Pulmonary embolism Heart problem Coronary artery disease Sibling Arthritis Social History Social History Social History: Patient lives at home with her of 50 years. She has 1 son. 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 She used to smoke a some much as 2 packs of cigarettes per day and started smoking around age 19. She cut back significantly on her smoking after cancer diagnosis in 2020. She still smokes 1 or 2 cigarettes a day. She denies any history of alcohol use or illicit substance use. Surrogate medical decision maker: Elliott Wallis, spouse Code status: DNR/DNI Smoking packs per day: 2 Smoking cigarettes per day: 40.0 Years smoked: 50 Smoking pack-years: 100.00 Smoking status: Current every day smoker Tobacco type: cigarettes Second hand tobacco smoke exposure: No Additional smoking assessment comments: Pt has cut back on smoking, but states she still smokes 2-3 cigarettes/day. Alcohol intake: never Substance use: never Substance use type: does not use Do You Feel Safe in your Home?: Yes Lack of Transportation: No Lack of Food: Never True Current Housing: I Have Housing Concerned About Future Housing: No Difficulty Paying Gas/Electric Bills: No Difficulty Paying for Meds: No Currently Unemployed: No Education: High School Diploma/GED Difficulty w/ Childcare or Family Care: No Living arrangements: with family Spiritual care concerns: No Meds Home Medications and Allergies Home Medications ?Medication ?Instructions ?Recorded ?Confirmed ?Type alprazolam 0.25 mg tablet (Xanax) 0.25 mg PO BID PRN Anxiety 04/30/20 01/17/25 History diphenhydramine HCl 25 mg capsule 25 mg PO HS PRN allergy symptoms 10/14/23 01/17/25 History (Benadryl) gabapentin 300 mg capsule 300 mg PO HS 10/14/23 01/17/25 History apixaban 5 mg tablet (Eliquis) 5 mg PO Q12HR #60 tabs 10/18/23 01/17/25 Rx metoprolol succinate 25 mg 25 mg PO QAM #30 tabs 10/18/23 01/17/25 Rx tablet,extended release 24 hr (Toprol XL) fluticasone propionate 50 1 spray intranasal DAILY PRN 06/28/24 01/17/25 History mcg/actuation nasal allergy symptoms spray,suspension ibuprofen 200 mg tablet (Advil) 400 mg PO Q6H PRN fever or pain 06/28/24 01/17/25 History sacubitril 24 mg-valsartan 26 mg 1 tablet PO BID 06/28/24 01/17/25 History tablet (Entresto) sotorasib 320 mg tablet (Lumakras) 960 mg PO QHS 06/28/24 01/17/25 History lidocaine 5 % topical patch 2 patch topical DAILY 08/12/24 01/17/25 History amiodarone 200 mg tablet (Pacerone) 200 mg PO DAILY@0800 #30 tabs 08/16/24 01/17/25 Rx fluticasone fur. 100 mcg-umeclid 1 inh inhalation Q24H #60 ea 11/29/24 01/17/25 Rx 62.5 mcg-vilant 25 mcg inhalat.powder (Trelegy Ellipta) oxycodone 10 mg tablet 10 mg PO Q6H PRN pain #120 tabs 01/02/25 01/17/25 Rx dimethicone 1 %-zinc oxide 10 1 applic topical 4-6XD PRN skin 01/17/25 01/17/25 History %-vit A and D-aloe vera topical irritation cream (A and D Diaper Rash Cream) nicotine 21 mg/24 hr daily 1 patch transdermal DAILY 01/17/25 01/17/25 History transdermal patch Allergies Allergy/AdvReac Type Severity Reaction Status Date / Time pentazocine (From Anjali) Allergy Irritable Verified 01/18/25 06:07 [id number] Reductase AdvReac Severe Muscle Pain Verified 01/18/25 06:07 Inhibitor Vital Signs Vital Signs - 24 hr 01/17/25 15:17 01/17/25 15:56 01/17/25 16:16 Temperature 97.2 F L Pulse Rate 96 100 100 Respiratory Rate 22 H 24 H Blood Pressure 81/60 L Pulse Oximetry 92 96 Oxygen Delivery Room Air Oxygen Flow Rate 01/17/25 16:16 01/17/25 16:32 01/17/25 16:40 Temperature Pulse Rate 141 H 144 H Respiratory Rate 24 H Blood Pressure 94/76 L Pulse Oximetry 100 Oxygen Delivery Room Air Oxygen Flow Rate 01/17/25 16:51 01/17/25 17:02 01/17/25 17:03 Temperature Pulse Rate 75 73 76 Respiratory Rate 24 H 18 Blood Pressure 84/58 L 84/58 L Pulse Oximetry 92 89 L Oxygen Delivery Oxygen Flow Rate 01/17/25 17:15 01/17/25 17:43 01/17/25 17:45 Temperature Pulse Rate 71 73 73 Respiratory Rate 19 19 21 H Blood Pressure Pulse Oximetry 91 93 94 Oxygen Delivery Oxygen Flow Rate 01/17/25 18:48 01/17/25 19:26 01/17/25 20:00 Temperature Pulse Rate 78 71 72 Respiratory Rate 18 20 23 H Blood Pressure Pulse Oximetry 94 97 95 Oxygen Delivery Oxygen Flow Rate 01/17/25 20:01 01/17/25 20:15 01/17/25 20:26 Temperature Pulse Rate 72 71 69 Respiratory Rate 27 H 20 20 Blood Pressure 84/48 L 96/57 L Pulse Oximetry 96 95 95 Oxygen Delivery Oxygen Flow Rate 01/17/25 20:30 01/17/25 20:31 01/17/25 20:45 Temperature Pulse Rate 70 77 70 Respiratory Rate 19 16 23 H Blood Pressure 88/60 L Pulse Oximetry 95 95 95 Oxygen Delivery Oxygen Flow Rate 01/17/25 21:00 01/17/25 21:01 01/17/25 21:05 Temperature Pulse Rate 69 70 Respiratory Rate 23 H 33 H Blood Pressure 100/72 Pulse Oximetry 96 95 96 Oxygen Delivery Nasal Cannula Oxygen Flow Rate 3 01/17/25 21:45 01/17/25 23:36 01/18/25 00:00 Temperature 98.5 F 98.6 F Pulse Rate 86 69 70 Respiratory Rate 22 H 23 H 20 Blood Pressure 107/61 100/72 112/59 L Pulse Oximetry 100 96 95 Oxygen Delivery Oxygen Flow Rate Exam Const: General: cooperative, no acute distress, well developed, alert, awake, Physically active and ill appearing Nutritional Appearance: average body habitus and well nourished Orientation/consciousness: oriented to person, oriented to place, oriented to time and patient oriented x3 Limitations: no limitations HENMT: Head: normal to inspection, No palpable skull fracture present, normocephalic, atraumatic and abrasion Ears: hearing grossly normal bilaterally and external ears normal Eyes: General: appearance normal, both eyes and all related structures Alignment and Position: alignment normal Conjunctivae: conjunctivae normal Neck: Neck: normal visual inspection and full ROM Chest: Chest palpation & inspection: normal inspection of the chest (Port-A-Cath intact to right upper chest) Resp: Effort & Inspection: normal respiratory effort Auscultation: wheezes scattered wheezes and lower bilaterally Cardio: Palpation: normal PMI Rate: regular rate Rhythm: regular rhythm Heart sounds: S1 normal heart sound present and S2 normal heart sound present Peripheral pulses: Peripheral pulses 2+ throughout GI: Inspection: normal to inspection Auscultation: normal bowel sounds Skin: General skin exam: normal color Lesions: no lesions Rashes: no rashes Trauma: no lacerations or abrasions Wounds: no wounds Hair: normal Nails: normal Neuro: General: oriented to person, oriented to place, oriented to time and patient oriented x3 Cranial nerves: Yes Normal hearing present Cognition (Neuro): normal cognition Speech: normal speech Motor exam (neuro): 5/5 motor strength present throughout Sensory Exam: normal sensation Extrem: General: normal to inspection Right upper extremity: normal to inspection and shoulder/upper arm Left upper extremity: normal to inspection and shoulder/upper arm Right lower extremity: normal to inspection Left lower extremity: normal to inspection Psych: Appearance: grossly normal Mental Status: mental status grossly normal Speech and movement: Normal speech and movement present Affect: normal affect Attitude: cooperative Thought process: Normal thought process present Thought content: Yes Normal thought content present Insight: Good insight present (Psych) Judgement: Good judgement present (Psych) H&P: Results Labs Labs: Short CBC 01/17/25 Range/Units 16:11 WBC 34.5 H (4.5-10.0) K/mm3 Hgb 13.5 (12.0-15.0) g/dL Hct 44.0 (37.0-47.0) % Plt Count 62 L D (150-375) k/mm3 BMP 01/17/25 16:11 Sodium 129 L Potassium 4.4 Chloride 97 L Carbon Dioxide 29 BUN 17 Creatinine 1.03 H Glucose 111 H Calcium 8.1 L Liver Function 01/17/25 Range/Units 16:11 Total Bilirubin 0.7 (0.2-1.3) mg/dL AST 251 H (14-36) U/L ALT 17 (6-35) U/L Alkaline Phosphatase 162 H (38-126) U/L Albumin 3.1 L (3.5-5.1) g/dL ECG Interpretation: test Date: 2025-01-17 16:29:24 Measurements Intervals [place] Rate: 128 P: 0 NH: 0 QRS: 127 QRSD: 131 T: 31 QT: 324 QTc: 474 Interpretive Statements ATRIAL FLUTTER/TACHYCARDIA WITH RAPID VENTRICULAR RESPONSE RIGHT AXIS DEVIATION LEFT BUNDLE BRANCH BLOCK BASELINE ARTIFACT- AVR, AVL ABNORMAL ECG Compared to ECG 01/17/2025 16:04:56 SINUS RHTYHM NO LONGER PRESENT Electronically Signed On 01-17-2025 20:10:02 CDT by Jesus Garcia D.O. Imaging CT scan - chest: Radiologist's impression: Impressions Chest X-Ray 01/17/25 16:26 Impression: Bilateral pneumonia. Left lung nodule. CT suggested to assess. The lung nodule appears increased in size compared to previous CT. Chest CT 01/17/25 17:21 IMPRESSION: 1. Increase in size of now small to moderate right and very small left pleural effusions with progression of associated compressive atelectasis in the dependent lower lobes, right greater than left. 2. No significant interval change in a 4.0 x 2.3 cm lenticular mass in the posterior lingula consistent with biopsy-proven lung cancer or cervical scattered pulmonary nodules with increased FDG uptake on prior PET/CT suspicious for metastatic disease. 3. Interval increase in size of a 1.8 x 1.6 cm spiculated nodule with surrounding reticulonodular opacities in the posterior basilar segment of the right lower lobe which could represent progression of metastatic disease with lymphangitic carcinomatosis and/or focal pneumonia with surrounding endobronchial spread of disease. Assessment and Plan Assessment and plan (1) CAP (community acquired pneumonia): Qualifiers: Laterality: left Lung location: unspecified part of lung Qualified Code(s): J18.9 - Pneumonia, unspecified organism Code(s): J18.9 - Pneumonia, unspecified organism Status: Acute Assessment and Plan: -the patient was started on Rocephin and doxycycline. -sputum and blood cultures are pending. -DuoNebs -the patient is currently on oxygen at 4-5 L per nasal cannula she does not wear oxygen at home. She Opal need to be evaluated for home oxygen prior to discharge. She is afebrile. Her white count is noted to be 34.5. Her chest x-ray was read as pneumonia however under CT scan there is no mention of pneumonia. (2) CHF (congestive heart failure): Qualifiers: Heart failure type: biventricular Qualified Code(s): I50.82 - Biventricular heart failure Code(s): I50.9 - Heart failure, unspecified Status: Acute Assessment and Plan: -last echo was 08/14/2024 ummary 1. Left ventricular chamber dimension is normal. 2. Left ventricular systolic function is normal, estimated at 50-55. 3. The left ventricular diastolic function is grade I diastolic dysfunction. 4. Right ventricular systolic function is normal. 5. There is mild to moderate mitral valve regurgitation. 6. There is mild tricuspid valve regurgitation. 7. There is trivial pericardial effusion. -continue with Entresto (3) Atrial fib/flutter, transient: Code(s): I48.91 - Unspecified atrial fibrillation; I48.92 - Unspecified atrial flutter Status: Acute Assessment and Plan: -continue with patient's amiodarone. -continue with Eliquis. -the patient was given an IV dose of amiodarone in the emergency room to get her heart rate down from 144-70's -she was given a dose of albumin in the emergency room as her blood pressure had been low. It did help to raise her blood pressure. - (4) Hyponatremia: Code(s): E87.1 - Hypo-osmolality and hyponatremia Status: Acute Assessment and Plan: -echo be related to heart failure or could be related to her cancer. -daily BMPs. -check urine sodium and osmolality (5) Non-small cell lung cancer: Onset Date: 02/2020 Qualifiers: Laterality: unspecified laterality Qualified Code(s): C34.90 - Malignant neoplasm of unspecified part of unspecified bronchus or lung Code(s): C34.90 - Malignant neoplasm of unspecified part of unspecified bronchus or lung Status: Acute Assessment and Plan: -Hematology-Oncology consultation greatly be appreciated for further suggestions. -continue with current treatment as per Oncology Quality VTE Prophylaxis VTE prophylaxis: pharmacologic ordered
[2025-01-18 04:55] LABS: Hematocrit 37.2 % (37.0-47.0); Hemoglobin 11.1 g/dL (12.0-15.0); Immature Granulocyte Percent A 0.6 % (0-0.5); Immature Platelet Fraction Pct 3.7 % (0.9-11.2); Lymphocytes Absolute Auto 1.40 K/mm3 (0.9-3.2); Mean Corpuscular HGB Conc 29.8 g/dl (32-36); Mean Corpuscular Hemoglobin 30.5 pg (26-34); Mean Corpuscular Volume 102.2 fl (80-100); Nucleated Red Blood Cells Absolute Auto 0.060 K/mm3 (0.0-0.012); Nucleated Red Blood Cells Perc 0.3 % (0.0-0.2); Platelet Count Result 44 k/mm3 (150-375); Red Blood Count 3.64 M/mm3 (4.2-5.4); White Blood Count 23.6 K/mm3 (4.5-10.0)
[2025-01-18 05:04] LABS: Anion Gap 1 mmol/L (4-12); Blood Urea Nitrogen 15 mg/dL (7-17); Calcium 7.8 mg/dL (8.4-10.2); Carbon Dioxide 29 mmol/L (22-30); Chloride 100 mmol/L (98-107); Estimated CRCL calculation 49 ml/min; Estimated Glomerular Filt Rate 59; Glucose 80 mg/dL (65-110); Potassium 4.3 mmol/L (3.4-5.0); Sodium 130 mmol/L (137-145)
[2025-01-18] MEDS: oxyCODONE HCL (*CRX) 5 MG TAB IR 10 MG PO ×3 (06:24→20:13)
[2025-01-18] MEDS: AMIODARONE HCL 200 MG TABLET PO (08:04)
--- NOTE | 2025-01-18 08:06 | PM.IMPN ---
Progress Note: A&P Assessment and Plan (1) CAP (community acquired pneumonia): Qualifiers: Laterality: left Lung location: unspecified part of lung Qualified Code(s): J18.9 - Pneumonia, unspecified organism Code(s): J18.9 - Pneumonia, unspecified organism Status: Acute Assessment and Plan: -Continue IV Rocephin and doxycycline. -sputum and blood cultures are pending. -DuoNebs -the patient is currently on oxygen at 4-5 L per nasal cannula she does not wear oxygen at home. She may need to be evaluated for home oxygen prior to discharge. She is afebrile. Her chest x-ray was read as pneumonia however under CT scan there is no mention of pneumonia. -WBC 34.5 on admission, now 23.6 -AM labs (2) CHF (congestive heart failure): Qualifiers: Heart failure type: biventricular Qualified Code(s): I50.82 - Biventricular heart failure Code(s): I50.9 - Heart failure, unspecified Status: Acute Assessment and Plan: Continue Entresto not currently on diuretics at home CT chest showed Increase in size of now small to moderate right and very small left pleural effusions with progression of associated compressive atelectasis in the dependent lower lobes, right greater than left give IV furosemide 40 mg x 1 dose repeat CXR in AM (3) Atrial fib/flutter, transient: Code(s): I48.91 - Unspecified atrial fibrillation; I48.92 - Unspecified atrial flutter Status: Acute Assessment and Plan: -continue with patient's amiodarone. -continue with Eliquis. -the patient was given an IV dose of amiodarone in the emergency room to get her heart rate down from 144-70's -she was given a dose of albumin in the emergency room as her blood pressure had been low. It did help to raise her blood pressure. -telemetry (4) Hyponatremia: Code(s): E87.1 - Hypo-osmolality and hyponatremia Status: Acute Assessment and Plan: -could be related to heart failure or could be related to her cancer. -daily BMPs. -check urine sodium and osmolality (5) Non-small cell lung cancer: Onset Date: 02/2020 Qualifiers: Laterality: unspecified laterality Qualified Code(s): C34.90 - Malignant neoplasm of unspecified part of unspecified bronchus or lung Code(s): C34.90 - Malignant neoplasm of unspecified part of unspecified bronchus or lung Status: Acute Assessment and Plan: -Hematology-Oncology consultation greatly be appreciated for further suggestions. Subjective Date/time seen: 01/18/25 08:06 Interval history: Patient seen for a follow up visit. Patient sitting up in bed, in no acute distress. Patient denies acute pain. Patient on 4L O2 by NC, wean as tolerated. Patient does not use oxygen at home. Patient continues on IV Rocephin and IV doxycycline. Oncology is consulted. PT/OT to evaluate patient. AM labs ordered. Review of Systems Review of Systems: All systems reviewed & are unremarkable except as noted in HPI and below Exam Const: General: comfortable and no acute distress HENMT: Face/Nose/Sinus: Normal nares present Mouth: Yes moist mucous membranes Eyes: General: appearance normal, both eyes and all related structures Sclera: sclerae normal Neck: Neck: supple Resp: Other: Wheezing in anterior lung broderick, coarse crackles at bilateral base Cardio: Rate: regular rate Rhythm: regular rhythm GI: GI Palp: Yes Soft to palpation Auscultation: normal bowel sounds Skin: General skin exam: normal color and no rashes or lesions noted Neuro: Speech: normal speech Motor exam (neuro): 5/5 motor strength present throughout Sensory Exam: normal sensation Extrem: Other: 1+ edema BLE Psych: Mental Status: mental status grossly normal Affect: normal affect Objective Data Vital Signs Vital Signs: Vital Signs - 24 hr 01/17/25 15:17 01/17/25 15:56 01/17/25 16:16 Temperature 97.2 F L Pulse Rate 96 100 100 Respiratory Rate 22 H 24 H Blood Pressure 81/60 L Pulse Oximetry 92 96 Oxygen Delivery Room Air Oxygen Flow Rate 01/17/25 16:16 01/17/25 16:32 01/17/25 16:40 Temperature Pulse Rate 141 H 144 H Respiratory Rate 24 H Blood Pressure 94/76 L Pulse Oximetry 100 Oxygen Delivery Room Air Oxygen Flow Rate 01/17/25 16:51 01/17/25 17:02 01/17/25 17:03 Temperature Pulse Rate 75 73 76 Respiratory Rate 24 H 18 Blood Pressure 84/58 L 84/58 L Pulse Oximetry 92 89 L Oxygen Delivery Oxygen Flow Rate 01/17/25 17:15 01/17/25 17:43 01/17/25 17:45 Temperature Pulse Rate 71 73 73 Respiratory Rate 19 19 21 H Blood Pressure Pulse Oximetry 91 93 94 Oxygen Delivery Oxygen Flow Rate 01/17/25 18:48 01/17/25 19:26 01/17/25 20:00 Temperature Pulse Rate 78 71 72 Respiratory Rate 18 20 23 H Blood Pressure Pulse Oximetry 94 97 95 Oxygen Delivery Oxygen Flow Rate 01/17/25 20:01 01/17/25 20:15 01/17/25 20:26 Temperature Pulse Rate 72 71 69 Respiratory Rate 27 H 20 20 Blood Pressure 84/48 L 96/57 L Pulse Oximetry 96 95 95 Oxygen Delivery Oxygen Flow Rate 01/17/25 20:30 01/17/25 20:31 01/17/25 20:45 Temperature Pulse Rate 70 77 70 Respiratory Rate 19 16 23 H Blood Pressure 88/60 L Pulse Oximetry 95 95 95 Oxygen Delivery Oxygen Flow Rate 01/17/25 21:00 01/17/25 21:01 01/17/25 21:05 Temperature Pulse Rate 69 70 Respiratory Rate 23 H 33 H Blood Pressure 100/72 Pulse Oximetry 96 95 96 Oxygen Delivery Nasal Cannula Oxygen Flow Rate 3 01/17/25 21:40 01/17/25 21:45 01/17/25 21:49 Temperature 98.5 F Pulse Rate 86 86 77 Respiratory Rate 22 H 22 H Blood Pressure 107/61 Pulse Oximetry 100 100 Oxygen Delivery Nasal Cannula Oxygen Flow Rate 3 01/17/25 22:00 01/17/25 23:36 01/17/25 23:36 Temperature Pulse Rate 70 69 69 Respiratory Rate 23 H 23 H Blood Pressure 100/72 Pulse Oximetry 96 96 Oxygen Delivery Nasal Cannula Oxygen Flow Rate 4 01/18/25 00:00 01/18/25 00:00 01/18/25 02:00 Temperature 98.6 F Pulse Rate 70 70 62 Respiratory Rate 20 Blood Pressure 112/59 L Pulse Oximetry 95 Oxygen Delivery Oxygen Flow Rate 01/18/25 04:00 01/18/25 04:00 01/18/25 05:21 Temperature 98.5 F Pulse Rate 65 61 65 Respiratory Rate 20 20 Blood Pressure 101/56 L Pulse Oximetry 95 95 Oxygen Delivery Nasal Cannula Oxygen Flow Rate 4 01/18/25 06:00 01/18/25 07:49 01/18/25 08:04 Temperature 98 F Pulse Rate 64 88 74 Respiratory Rate 22 H Blood Pressure 129/63 Pulse Oximetry 94 Oxygen Delivery Oxygen Flow Rate Intake/Output Intake/Output: Intake & Output 01/15/25 01/16/25 01/17/25 01/18/25 23:59 23:59 23:59 23:59 Intake Total 750 550 Output Total 0 300 Balance 750 250 Meds/Results Medications: Active Medications Generic Name Dose Route Start Last Admin Trade Name Freq PRN Reason Stop Dose Admin Albuterol/Ipratropium 3 ml 01/18/25 08:00 Ipratropium 0.5 Mg/Albuterol Sulfate 2.5 Mg (Base) Ampul.Neb 3 Ml INHALATION Q6HRT BRANT Alprazolam 0.25 mg 01/17/25 23:35 01/18/25 00:02 Alprazolam (*Crx) 0.25 Mg Tablet PO 0.25 mg BID PRN Administration Anxiety Amiodarone HCl 200 mg 01/18/25 08:00 01/18/25 08:04 Amiodarone Hcl 200 Mg Tablet PO 200 mg DAILY@0800 BRANT Administration Apixaban 5 mg 01/17/25 23:35 01/18/25 00:02 Apixaban 5 Mg Tablet PO 5 mg Q12HR BRANT Administration Diphenhydramine HCl 25 mg 01/17/25 23:35 Diphenhydramine Hcl Cap 25 Mg Capsule PO HS PRN allergy symptoms Fluticasone Propionate 1 spray 01/17/25 23:35 Fluticasone Propionate 0.05% Na Spr 16 Gm Btl (*Bkc) NASAL DAILY PRN allergy symptoms Fluticasone/Umeclidinium/Vilanterol 1 puff 01/18/25 08:00 Fluticasone/Umeclidin/Vilanter 100-62.5-25 Mcg Ellipta INHALATION On Hold: 01/18/25 08:00 DAILYRT BRANT Comment: HOLD WHILE ON SCHEDULED DUONEB Gabapentin 300 mg 01/17/25 23:50 01/18/25 00:02 Gabapentin 300 Mg Capsule PO 300 mg HS BRANT Administration Ceftriaxone Sodium 1 gm/ 50 mls @ 100 mls/hr 01/18/25 20:00 Sodium Chloride IVPB Q24H BRANT Doxycycline Hyclate 100 mg/ 100 mls @ 100 mls/hr 01/18/25 08:00 Sodium Chloride IVPB 01/22/25 20:59 Q12H BRANT Ibuprofen 400 mg 01/17/25 23:35 01/18/25 00:03 Ibuprofen 400 Mg Tablet PO 400 mg Q6H PRN Administration fever or pain (1-3) Lidocaine 2 patch 01/18/25 09:00 Lidocaine 5% Patch TOPICAL DAILY BRANT Metoprolol Succinate 25 mg 01/18/25 09:00 Metoprolol Succinate Ext Rel 25 Mg Tabcr PO QAM [facility] Miscellaneous Information 0 each 01/18/25 02:15 01/18/25 06:19 Sotorasib [Lumakras] 320 Mg Tablet- Nonformulary. Please Obtain A Home Supply If Possible. XX 02/17/25 02:14 Not Given CLARIFY BRANT Nicotine 1 patch 01/18/25 09:00 Nicotine (*Pbkc) 21 Mg Patch TRANSDERM DAILY [facility] Non-Formulary Medication 960 mg 01/18/25 21:00 Sotorasib [Lumakras] PO 02/17/25 20:59 QHS [facility] Oxycodone HCl 10 mg 01/17/25 23:35 01/18/25 06:24 Oxycodone Hcl (*Crx) 5 Mg Tab Ir PO 10 mg Q6H PRN Administration Pain Sacubitril/Valsartan 1 tab 01/18/25 09:00 Sacubitril/Valsartan 24-26 Mg Tablet PO Q12HR [facility] Vitamin A/Vitamin D 1 applic 01/18/25 02:13 Vitamin A & D Ointment 60 Gm Tube TOPICAL Q4-6H PRN skin irritation Radiology Results: ITS Impressions Chest X-Ray 01/17/25 16:26 Impression: Bilateral pneumonia. Left lung nodule. CT suggested to assess. The lung nodule appears increased in size compared to previous CT. Chest CT 01/17/25 17:21 IMPRESSION: 1. Increase in size of now small to moderate right and very small left pleural effusions with progression of associated compressive atelectasis in the dependent lower lobes, right greater than left. 2. No significant interval change in a 4.0 x 2.3 cm lenticular mass in the posterior lingula consistent with biopsy-proven lung cancer or cervical scattered pulmonary nodules with increased FDG uptake on prior PET/CT suspicious for metastatic disease. 3. Interval increase in size of a 1.8 x 1.6 cm spiculated nodule with surrounding reticulonodular opacities in the posterior basilar segment of the right lower lobe which could represent progression of metastatic disease with lymphangitic carcinomatosis and/or focal pneumonia with surrounding endobronchial spread of disease. Labs Labs: Laboratory Results - last 24 hr 01/17/25 01/17/25 01/18/25 16:11 18:46 04:24 WBC 34.5 H 23.6 H RBC 4.33 3.64 L Hgb 13.5 11.1 L Hct 44.0 37.2 MCV 101.6 H 102.2 H MCH 31.2 30.5 MCHC 30.7 L 29.8 L RDW 14.1 14.4 Plt Count 62 L D 44 L MPV 10.1 10.0 Immature Gran % (Auto) Not Reportable 0.6 H Neut % (Auto) Not Reportable 81.2 H Lymph % (Auto) Not Reportable 5.9 L [place] % (Auto) Not Reportable 12.2 H Eos % (Auto) Not Reportable 0.0 Baso % (Auto) Not Reportable 0.1 L Lymph # (Auto) Not Reportable 1.40 [place] # (Auto) Not Reportable 2.9 H Eos # (Auto) Not Reportable 0.0 Baso # (Auto) Not Reportable 0.0 Abs Immat Gran (auto) Not Reportable 0.14 H Absolute Neuts (auto) Not Reportable 19.2 H Absolute Nucleated RBC Not Reportable 0.060 H Total Counted 100 Neutrophils % (Manual) 84 H Band Neutrophils % 8 H Lymphocytes % (Manual) 4.0 L Monocytes % (Manual) 4 Nucleated RBC % Not Reportable 0.3 H Abs Neuts (Manual) 31.74 H Abs Lymphs (Manual) 1.38 Abs Monocytes (Manual) 1.38 H Platelet Estimate Decreased % Immature Plt Fraction 4.6 3.7 Hypochromasia 1+ Schistocytes None seen Sodium 129 L 130 L Potassium 4.4 4.3 Chloride 97 L 100 Carbon Dioxide 29 29 Anion Gap 3 L 1 L BUN 17 15 Creatinine 1.03 H 0.94 Estim Creat Clear Calc 45 49 Estimated GFR 53 L 59 Glucose 111 H 80 Lactic Acid 1.6 Calcium 8.1 L 7.8 L Total Bilirubin 0.7 AST 251 H ALT 17 Alkaline Phosphatase 162 H NT-Pro-B Natriuret Pep 4630 H Total Protein 5.6 L Albumin 3.1 L Quality VTE Prophylaxis VTE prophylaxis: pharmacologic ordered (Continue home Eliquis.)
[2025-01-18] MEDS: DOXYCYCLINE IV 100 MG in SODIUM CHLORIDE 0.9% IV 100 ML IVPB ×2 (09:08→20:30)
[2025-01-18] MEDS: METOPROLOL SUCCINATE EXT REL 25 MG TABCR PO (09:25)
[2025-01-18] MEDS: SACUBITRIL/VALSARTAN 24-26 MG TABLET 1 TAB PO ×2 (09:26→20:12)
[2025-01-18] MEDS: NICOTINE (*PBKC) 21 MG PATCH 1 PATCH TRANSDERM (11:01)
[2025-01-18] MEDS: LIDOCAINE 5% PATCH 2 PATCH TOPICAL (11:02)
[2025-01-18] MEDS: FUROSEMIDE INJ 40 MG/4 ML VIAL 20 MG IV PUSH (17:38)
[2025-01-18] MEDS: IPRATROPIUM 0.5 MG/ALBUTEROL SULFATE 2.5 MG (BASE) AMPUL.NEB 3 ML INHALATION (18:04)
--- NOTE | 2025-01-18 18:11 | PCRCNOTE ---
Patient tx was delayed. Therapist had no clue about patients tx until nurse called at the end of the shift . last tx was given around 1800
[2025-01-18] MEDS: cefTRIAXone 1 GM in SODIUM CHLORIDE 0.9% IV 50 ML 100 ML IVPB (20:32)
[2025-01-19] VITALS (29 sets, daily range): BP systolic 93–113; BP diastolic 56–71; PULSE 70–102; RESP 16–28; TEMP 36.5–37.1; O2SAT 86–98
[2025-01-19] MEDS: IPRATROPIUM 0.5 MG/ALBUTEROL SULFATE 2.5 MG (BASE) AMPUL.NEB 3 ML INHALATION ×4 (01:25→19:54)
--- NOTE | 2025-01-19 01:48 | PC.NURSE ---
Daylight Savings Time For Daylight Savings Time Ending in the Fall - Clocks are moved back. For Daylight Savings Time Beginning in the Spring - Clocks are moved ahead. For [facility], the time of change occurs at 0200 hrs. Time is taken from the server support technician. This entry on the patient's chart recognizes the change in time reflected during documentation. Example: 2 entries for vital signs may be charted for 0200 hrs.
[2025-01-19] MEDS: oxyCODONE HCL (*CRX) 5 MG TAB IR 10 MG PO ×3 (02:08→17:49)
[2025-01-19 04:30] LABS: Hematocrit 39.6 % (37.0-47.0); Hemoglobin 12.4 g/dL (12.0-15.0); Immature Platelet Fraction Pct 4.4 % (0.9-11.2); Mean Corpuscular HGB Conc 31.3 g/dl (32-36); Mean Corpuscular Hemoglobin 31.3 pg (26-34); Mean Corpuscular Volume 100.0 fl (80-100); Platelet Count Result 43 k/mm3 (150-375); Red Blood Count 3.96 M/mm3 (4.2-5.4); White Blood Count 27.1 K/mm3 (4.5-10.0)
[2025-01-19 04:45] LABS: Alanine Aminotransferase 17 U/L (6-35); Albumin Level 2.8 g/dL (3.5-5.1); Alkaline Phosphatase 136 U/L (38-126); Anion Gap 3 mmol/L (4-12); Aspartate Amino Transferase 221 U/L (14-36); Bilirubin,Total 0.6 mg/dL (0.2-1.3); Blood Urea Nitrogen 16 mg/dL (7-17); Calcium 7.9 mg/dL (8.4-10.2); Carbon Dioxide 29 mmol/L (22-30); Chloride 98 mmol/L (98-107); Estimated CRCL calculation 52 ml/min; Estimated Glomerular Filt Rate > 60; Glucose 93 mg/dL (65-110); Potassium 4.5 mmol/L (3.4-5.0); Sodium 130 mmol/L (137-145); Total Protein 5.2 g/dL (6.3-8.2)
[2025-01-19 05:17] LABS: Band Neutrophils Percent 7 % (0-6); Giant Platelets Present; Lymphocytes Absolute Manual 1.35 K/mm3 (1.1-4.5); Lymphocytes Percent Manual 5.0 % (18-44); Monocytes Absolute Manual 1.35 K/mm3 (0.1-0.90); Monocytes Percent Manual 5 % (3-9); Neutrophils Absolute Manual 24.39 K/mm3 (1.3-6.7); Neutrophils Percent Manual 83 % (46-73); Total Cells Counted 100
[2025-01-19 05:18] LABS: Anisocytosis 1+; Schistocytes None Seen
[2025-01-19 05:19] LABS: Microcytosis 1+ (NORMAL)
[2025-01-19] MEDS: LIDOCAINE 5% PATCH 2 PATCH TOPICAL (08:29)
[2025-01-19] MEDS: NICOTINE (*PBKC) 21 MG PATCH 1 PATCH TRANSDERM (08:29)
[2025-01-19] MEDS: DOXYCYCLINE IV 100 MG in SODIUM CHLORIDE 0.9% IV 100 ML IVPB ×2 (08:31→20:50)
[2025-01-19] MEDS: ALPRAZolam (*CRX) 0.25 MG TABLET PO ×2 (08:32→16:30)
[2025-01-19] MEDS: IBUPROFEN 400 MG TABLET PO ×2 (08:33→15:24)
[2025-01-19] MEDS: SACUBITRIL/VALSARTAN 24-26 MG TABLET 1 TAB PO ×2 (08:33→20:55)
[2025-01-19] MEDS: AMIODARONE HCL 200 MG TABLET PO (08:34)
[2025-01-19] MEDS: APIXABAN 5 MG TABLET PO ×2 (08:34→20:55)
--- NOTE | 2025-01-19 11:03 | P.PNIM_ITS ---
Progress Note: A&P Assessment and Plan (1) CAP (community acquired pneumonia): Qualifiers: Laterality: left Lung location: unspecified part of lung Qualified Code(s): J18.9 - Pneumonia, unspecified organism Code(s): J18.9 - Pneumonia, unspecified organism Status: Acute Assessment and Plan: -Continue IV antibiotics. -sputum and blood cultures are pending. -DuoNebs -the patient is currently on oxygen at 4-5 L per nasal cannula she does not wear oxygen at home. She may need to be evaluated for home oxygen prior to discharge. She is afebrile. Her chest x-ray was read as pneumonia however under CT scan there is no mention of pneumonia. -WBC 34.5 on admission, now 23.6 -AM labs (2) CHF (congestive heart failure): Qualifiers: Heart failure type: biventricular Qualified Code(s): I50.82 - Biventricular heart failure Code(s): I50.9 - Heart failure, unspecified Status: Acute Assessment and Plan: Continue Entresto not currently on diuretics at home CT chest showed Increase in size of now small to moderate right and very small left pleural effusions with progression of associated compressive atelectasis in the dependent lower lobes, right greater than left give IV furosemide 40 mg x 1 dose repeat CXR in AM (3) Atrial fib/flutter, transient: Code(s): I48.91 - Unspecified atrial fibrillation; I48.92 - Unspecified atrial flutter Status: Acute Assessment and Plan: -continue with patient's amiodarone. -continue with Eliquis. -the patient was given an IV dose of amiodarone in the emergency room to get her heart rate down from 144-70's -she was given a dose of albumin in the emergency room as her blood pressure had been low. It did help to raise her blood pressure. -telemetry (4) Hyponatremia: Code(s): E87.1 - Hypo-osmolality and hyponatremia Status: Acute Assessment and Plan: -could be related to heart failure or could be related to her cancer. -daily BMPs. -check urine sodium and osmolality (5) Non-small cell lung cancer: Onset Date: 02/2020 Qualifiers: Laterality: unspecified laterality Qualified Code(s): C34.90 - Malignant neoplasm of unspecified part of unspecified bronchus or lung Code(s): C34.90 - Malignant neoplasm of unspecified part of unspecified bronchus or lung Status: Acute Assessment and Plan: -Hematology-Oncology consultation greatly be appreciated for further suggestions. Subjective Date/time seen: 01/19/25 11:03 Interval history: Patient was seen during morning rounds today. Mild shortness of breath. No chest pain No abdominal pain, nausea, no vomiting. Review of Systems Review of Systems: All systems reviewed & are unremarkable except as noted in HPI and below Constitutional: Constitutional: Reports as per HPI and Reports no additional constitutional complaints Eyes: Eyes: Reports as per HPI and Reports no additional eye complaints ENT: Reports system reviewed and no additional complaints, except as documented and Reports Normal hearing present Cardiovascular: Cardiovascular: Reports no additional cardiovascular complaints Respiratory: Respiratory: Reports as per HPI and Reports no additional respiratory complaints Gastrointestinal: Gastrointestinal: Reports as per HPI and Reports no additional gastrointestinal complaints Genitourinary: Genitourinary: Reports no additional female genitourinary complaints Musculoskeletal: Musculoskeletal: Reports no additional musculoskeletal complaints Integumentary/Breasts: Skin/Breast: Reports system reviewed and no additional complaints, except as docu Neurologic: Reports system reviewed and no additional complaints, except as documented and Reports Normal hearing present Psychiatric: Psychiatric: Reports no additional psychiatric complaints and Reports as per HPI Hematologic/Lymphatic: Hematologic/Lymphatic: Reports no additional hematologic/lymphatic complaints Allergic/Immunologic: Allergic/Immunologic: Reports no additional allergic/immunologic complaints Exam Const: General: cooperative, comfortable, no acute distress, well developed, alert, awake, Physically active, ill appearing, average body habitus and well nourished Nutritional Appearance: average body habitus and well nourished Orientation/consciousness: oriented to person, oriented to place, oriented to time and patient oriented x3 Limitations: no limitations HENMT: Head: normal to inspection, No palpable skull fracture present, normocephalic, atraumatic and abrasion Ears: hearing grossly normal bilaterally and external ears normal Face/Nose/Sinus: Normal nares present Mouth: Yes moist mucous membranes Eyes: General: appearance normal, both eyes and all related structures Alignment and Position: alignment normal Conjunctivae: conjunctivae normal Sclera: sclerae normal Neck: Neck: normal visual inspection, full ROM and supple Chest: Chest palpation & inspection: normal inspection of the chest (Port-A-Cath intact to right upper chest) Resp: Effort & Inspection: normal respiratory effort Auscultation: wheezes scattered wheezes and lower bilaterally Other: Wheezing in anterior lung broderick, coarse crackles at bilateral base Cardio: Palpation: normal PMI Rate: regular rate Rhythm: regular rhythm Heart sounds: S1 normal heart sound present and S2 normal heart sound present Peripheral pulses: Peripheral pulses 2+ throughout GI: Inspection: normal to inspection Auscultation: normal bowel sounds Skin: General skin exam: normal color and no rashes or lesions noted Lesions: no lesions Rashes: no rashes Trauma: no lacerations or abrasions Wounds: no wounds Hair: normal Nails: normal Neuro: General: oriented to person, oriented to place, oriented to time and patient oriented x3 Cranial nerves: Yes Normal hearing present Cognition (Neuro): normal cognition Speech: normal speech Motor exam (neuro): 5/5 motor strength present throughout Sensory Exam: normal sensation Extrem: General: normal to inspection Right upper extremity: normal to inspection and shoulder/upper arm Left upper extremity: normal to inspection and shoulder/upper arm Right lower extremity: normal to inspection Left lower extremity: normal to inspection Other: 1+ edema BLE Psych: Appearance: grossly normal Mental Status: mental status grossly normal Speech and movement: Normal speech and movement present Affect: normal affect Attitude: cooperative Thought process: Normal thought process present Insight: Good insight present (Psych) Judgement: Good judgement present (Psych) Objective Data Vital Signs Vital Signs: Vital Signs - 24 hr 01/18/25 14:00 01/18/25 14:05 01/18/25 15:21 Temperature Pulse Rate 78 Respiratory Rate Blood Pressure Pulse Oximetry 91 Oxygen Delivery High Flow Nasal Cannula High Flow Nasal Cannula Oxygen Flow Rate 2 2 Fraction of Inspired Oxygen 01/18/25 15:32 01/18/25 16:00 01/18/25 18:00 Temperature 36.8 C Pulse Rate 130 H 85 84 Respiratory Rate 24 H Blood Pressure 105/71 Pulse Oximetry 93 Oxygen Delivery Oxygen Flow Rate Fraction of Inspired Oxygen 01/18/25 18:04 01/18/25 18:16 01/18/25 20:00 Temperature 36.8 C Pulse Rate 88 85 Respiratory Rate 20 22 H Blood Pressure 120/76 Pulse Oximetry 100 92 Oxygen Delivery High Flow Therapy with Na Oxygen Flow Rate 2 Fraction of Inspired Oxygen 01/18/25 20:00 01/18/25 20:02 01/18/25 20:10 Temperature Pulse Rate 85 105 H 105 H Respiratory Rate 20 20 Blood Pressure Pulse Oximetry 90 90 Oxygen Delivery High Flow Therapy with Na Nasal Cannula Oxygen Flow Rate 2 2 Fraction of Inspired Oxygen 28 01/18/25 22:00 01/18/25 23:02 01/19/25 00:00 Temperature 36.8 C Pulse Rate 80 78 78 Respiratory Rate 20 20 Blood Pressure 105/70 Pulse Oximetry 93 93 Oxygen Delivery Nasal Cannula Oxygen Flow Rate 2 Fraction of Inspired Oxygen 01/19/25 00:00 01/19/25 01:47 CDT 01/19/25 01:02 [place] Temperature Pulse Rate 90 76 87 Respiratory Rate 20 Blood Pressure Pulse Oximetry 86 L Oxygen Delivery Nasal Cannula Oxygen Flow Rate 2 Fraction of Inspired Oxygen 01/19/25 01:18 [place] 01/19/25 01:25 [place] 01/19/25 01:26 [place] Temperature Pulse Rate 74 78 78 Respiratory Rate 20 20 20 Blood Pressure Pulse Oximetry 87 L 93 Oxygen Delivery Nasal Cannula Nasal Cannula Oxygen Flow Rate 3 4 Fraction of Inspired Oxygen 36 01/19/25 01:36 [place] 01/19/25 02:09 01/19/25 04:00 Temperature Pulse Rate 78 74 78 Respiratory Rate 20 18 Blood Pressure Pulse Oximetry 94 Oxygen Delivery Nasal Cannula Oxygen Flow Rate 4 Fraction of Inspired Oxygen 01/19/25 04:00 01/19/25 04:00 01/19/25 05:25 Temperature 36.9 C Pulse Rate 79 79 73 Respiratory Rate 20 20 Blood Pressure 93/56 L Pulse Oximetry 94 94 Oxygen Delivery Nasal Cannula Oxygen Flow Rate 4 Fraction of Inspired Oxygen 01/19/25 07:01 01/19/25 07:04 01/19/25 08:00 Temperature 37.1 C Pulse Rate 79 79 90 Respiratory Rate 20 20 16 Blood Pressure 111/63 Pulse Oximetry 91 93 Oxygen Delivery Nasal Cannula Oxygen Flow Rate 4 Fraction of Inspired Oxygen 36 01/19/25 08:00 01/19/25 08:00 01/19/25 08:34 Temperature Pulse Rate 90 90 90 Respiratory Rate 20 Blood Pressure Pulse Oximetry 92 Oxygen Delivery Nasal Cannula Oxygen Flow Rate 4 Fraction of Inspired Oxygen 01/19/25 10:00 01/19/25 10:37 Temperature Pulse Rate 76 Respiratory Rate Blood Pressure 111/67 Pulse Oximetry Oxygen Delivery Oxygen Flow Rate Fraction of Inspired Oxygen Intake/Output Intake/Output: Intake & Output 01/16/25 01/17/25 01/18/25 01/19/25 23:59 23:59 23:59 22:59 Intake Total 750 1040 550 Output Total 0 950 400 Balance 750 90 150 Meds/Results Medications: Active Medications Generic Name Dose Route Start Last Admin Trade Name Freq PRN Reason Stop Dose Admin Albuterol/Ipratropium 3 ml 01/19/25 02:00 01/19/25 07:01 Ipratropium 0.5 Mg/Albuterol Sulfate 2.5 Mg (Base) Ampul.Neb 3 Ml INHALATION 3 ml Q6HRT BRANT Administration Alprazolam 0.25 mg 01/17/25 23:35 01/19/25 08:32 Alprazolam (*Crx) 0.25 Mg Tablet PO 0.25 mg BID PRN Administration Anxiety Amiodarone HCl 200 mg 01/18/25 08:00 01/19/25 08:34 Amiodarone Hcl 200 Mg Tablet PO 200 mg DAILY@0800 BRANT Administration Apixaban 5 mg 01/17/25 23:35 01/19/25 08:34 Apixaban 5 Mg Tablet PO 5 mg Q12HR BRANT Administration Diphenhydramine HCl 25 mg 01/17/25 23:35 Diphenhydramine Hcl Cap 25 Mg Capsule PO HS PRN allergy symptoms Fluticasone Propionate 1 spray 01/17/25 23:35 Fluticasone Propionate 0.05% Na Spr 16 Gm Btl (*Bkc) NASAL DAILY PRN allergy symptoms Fluticasone/Umeclidinium/Vilanterol 1 puff 01/18/25 08:00 Fluticasone/Umeclidin/Vilanter 100-62.5-25 Mcg Ellipta INHALATION On Hold: 01/18/25 08:00 DAILYRT BRANT Comment: HOLD WHILE ON SCHEDULED DUONEB Gabapentin 300 mg 01/17/25 23:50 01/18/25 20:12 Gabapentin 300 Mg Capsule PO 300 mg HS BRANT Administration Doxycycline Hyclate 100 mg/ 100 mls @ 100 mls/hr 01/18/25 08:00 01/19/25 09:31 Sodium Chloride IVPB 01/22/25 20:59 Infused Q12H BRANT Infusion Vancomycin HCl 1,000 mg/ 250 mls @ 250 mls/hr 01/19/25 11:00 Sodium Chloride IVPB Q12H BRANT Piperacillin Sod/Tazobactam 50 mls @ 100 mls/hr 01/19/25 11:00 Sod 2.25 gm/ Sodium Chloride IVPB Q8H BRANT Ibuprofen 400 mg 01/17/25 23:35 01/19/25 08:33 Ibuprofen 400 Mg Tablet PO 400 mg Q6H PRN Administration fever or pain (1-3) Lidocaine 2 patch 01/18/25 09:00 01/19/25 08:29 Lidocaine 5% Patch TOPICAL 2 patch DAILY BRANT Administration Metoprolol Succinate 25 mg 01/18/25 09:00 01/19/25 11:00 Metoprolol Succinate Ext Rel 25 Mg Tabcr PO Not Given QAM [facility] Miscellaneous Information 0 each 01/18/25 02:15 01/19/25 01:08 CDT Sotorasib [Lumakras] 320 Mg Tablet- Nonformulary. Please Obtain A Home Supply If Possible. XX 02/17/25 02:14 Not Given CLARIFY BRANT Nicotine 1 patch 01/18/25 09:00 01/19/25 08:29 Nicotine (*Pbkc) 21 Mg Patch TRANSDERM 1 patch DAILY BRANT Administration Non-Formulary Medication 960 mg 01/18/25 21:00 Sotorasib [Lumakras] PO 02/17/25 20:59 QHS BRANT Oxycodone HCl 10 mg 01/17/25 23:35 01/19/25 10:43 Oxycodone Hcl (*Crx) 5 Mg Tab Ir PO 10 mg Q6H PRN Administration Pain Sacubitril/Valsartan 1 tab 01/18/25 09:00 01/19/25 08:33 Sacubitril/Valsartan 24-26 Mg Tablet PO 1 tab Q12HR BRANT Administration Sodium Chloride 1 spray 01/18/25 09:53 Saline 0.65% Lalo Soln 44 Ml Btl NASAL Q6HR PRN Congestion Vancomycin HCl 1 each 01/19/25 11:00 Vancomycin Pharmacist To Dose IVPB PER PROTOCOL BRANT Vitamin A/Vitamin D 1 applic 01/18/25 02:13 Vitamin A & D Ointment 60 Gm Tube TOPICAL Q4-6H PRN skin irritation Radiology Results: ITS Impressions Chest X-Ray 01/17/25 16:26 Impression: Bilateral pneumonia. Left lung nodule. CT suggested to assess. The lung nodule appears increased in size compared to previous CT. Chest CT 01/17/25 17:21 IMPRESSION: 1. Increase in size of now small to moderate right and very small left pleural effusions with progression of associated compressive atelectasis in the dependent lower lobes, right greater than left. 2. No significant interval change in a 4.0 x 2.3 cm lenticular mass in the posterior lingula consistent with biopsy-proven lung cancer or cervical scatt ered pulmonary nodules with increased FDG uptake on prior PET/CT suspicious for metastatic disease. 3. Interval increase in size of a 1.8 x 1.6 cm spiculated nodule with surrounding reticulonodular opacities in the posterior basilar segment of the right lower lobe which could represent progression of metastatic disease with lymphangitic carcinomatosis and/or focal pneumonia with surrounding endobronchial spread of disease. Labs Labs: Laboratory Results - last 24 hr 01/18/25 01/19/25 15:20 03:57 WBC 27.1 H RBC 3.96 L Hgb 12.4 Hct 39.6 MCV 100.0 MCH 31.3 MCHC 31.3 L RDW 14.2 Plt Count 43 L MPV 10.5 H Immature Gran % (Auto) Not Reportable Neut % (Auto) Not Reportable Lymph % (Auto) Not Reportable [place] % (Auto) Not Reportable Eos % (Auto) Not Reportable Baso % (Auto) Not Reportable Lymph # (Auto) Not Reportable [place] # (Auto) Not Reportable Eos # (Auto) Not Reportable Baso # (Auto) Not Reportable Abs Immat Gran (auto) Not Reportable Absolute Neuts (auto) Not Reportable Absolute Nucleated RBC Not Reportable Total Counted 100 Neutrophils % (Manual) 83 H Band Neutrophils % 7 H Lymphocytes % (Manual) 5.0 L Monocytes % (Manual) 5 Nucleated RBC % Not Reportable Abs Neuts (Manual) 24.39 H Abs Lymphs (Manual) 1.35 Abs Monocytes (Manual) 1.35 H Platelet Estimate Decreased Giant Platelets Present % Immature Plt Fraction 4.4 Anisocytosis 1+ Microcytosis 1+ Schistocytes None seen Sodium 130 L Potassium 4.5 Chloride 98 Carbon Dioxide 29 Anion Gap 3 L BUN 16 Creatinine 0.89 Estim Creat Clear Calc 52 Estimated GFR > 60 Glucose 93 Calcium 7.9 L Total Bilirubin 0.6 AST 221 H ALT 17 Alkaline Phosphatase 136 H Total Protein 5.2 L Albumin 2.8 L Ur Random Sodium 40 Quality VTE Prophylaxis VTE prophylaxis: pharmacologic ordered (Continue home Eliquis.)
[2025-01-19] MEDS: PIPERACILLIN/TAZOBACTAM SOD 4.5 GM in SODIUM CHLORIDE 0.9% IV 100 ML 200 ML IVPB ×2 (11:35→17:51)
[2025-01-19] MEDS: VANCOMYCIN 1,750 MG/NS 500 ML 1,750 MG/500 ML BAG 250 MG IVPB (13:23)
[2025-01-19 19:31] LABS: MRSA (PCR) NOT DETECTED (NOT DETECTE)
[2025-01-19] MEDS: GABAPENTIN 300 MG CAPSULE PO (20:55)
[2025-01-19] MEDS: CENTRAL LINE FLUSH 10 ML IV PUSH (22:55)
[2025-01-20] VITALS (24 sets, daily range): BP systolic 84–119; BP diastolic 42–66; PULSE 80–104; RESP 16–20; TEMP 36.6–37; O2SAT 90–97
[2025-01-20] MEDS: PIPERACILLIN/TAZOBACTAM SOD 4.5 GM in SODIUM CHLORIDE 0.9% IV 100 ML 200 ML IVPB ×5 (00:07→23:07)
[2025-01-20] MEDS: IPRATROPIUM 0.5 MG/ALBUTEROL SULFATE 2.5 MG (BASE) AMPUL.NEB 3 ML INHALATION ×4 (01:31→20:00)
[2025-01-20] MEDS: oxyCODONE HCL (*CRX) 5 MG TAB IR 10 MG PO ×4 (01:47→20:17)
[2025-01-20 06:29] LABS: Hematocrit 40.5 % (37.0-47.0); Hemoglobin 12.3 g/dL (12.0-15.0); Immature Platelet Fraction Pct 4.0 % (0.9-11.2); Mean Corpuscular HGB Conc 30.4 g/dl (32-36); Mean Corpuscular Hemoglobin 30.8 pg (26-34); Mean Corpuscular Volume 101.5 fl (80-100); Platelet Count Result 36 k/mm3 (150-375); Red Blood Count 3.99 M/mm3 (4.2-5.4); White Blood Count 25.3 K/mm3 (4.5-10.0)
[2025-01-20] MEDS: CENTRAL LINE FLUSH 10 ML IV PUSH ×3 (06:54→21:31)
[2025-01-20 06:55] LABS: Alanine Aminotransferase 19 U/L (6-35); Albumin Level 2.8 g/dL (3.5-5.1); Alkaline Phosphatase 148 U/L (38-126); Anion Gap 1 mmol/L (4-12); Aspartate Amino Transferase 223 U/L (14-36); Bilirubin,Total 0.6 mg/dL (0.2-1.3); Blood Urea Nitrogen 14 mg/dL (7-17); Calcium 7.9 mg/dL (8.4-10.2); Carbon Dioxide 30 mmol/L (22-30); Chloride 99 mmol/L (98-107); Estimated CRCL calculation 56 ml/min; Estimated Glomerular Filt Rate > 60; Glucose 101 mg/dL (65-110); Potassium 4.2 mmol/L (3.4-5.0); Sodium 130 mmol/L (137-145); Total Protein 5.3 g/dL (6.3-8.2)
[2025-01-20] MEDS: AMIODARONE HCL 200 MG TABLET PO (08:47)
[2025-01-20] MEDS: METOPROLOL SUCCINATE EXT REL 25 MG TABCR PO (08:47)
[2025-01-20] MEDS: SACUBITRIL/VALSARTAN 24-26 MG TABLET 1 TAB PO ×2 (08:47→21:30)
[2025-01-20] MEDS: NICOTINE (*PBKC) 21 MG PATCH 1 PATCH TRANSDERM (08:49)
[2025-01-20] MEDS: LIDOCAINE 5% PATCH 2 PATCH TOPICAL (08:49)
[2025-01-20] MEDS: DOXYCYCLINE IV 100 MG in SODIUM CHLORIDE 0.9% IV 100 ML IVPB ×2 (08:56→21:30)
--- NOTE | 2025-01-20 08:58 | PCWOUND ---
WOCN NOTE Spoke with Magi OCASIO for patient. RN states that patient has a Stage 1 pressure injury to the coccyx that per patient she has been treating it at home. RN states the center of the injury does not [place], and that they put a Mepilex border over area. RN states wound care does not need to assess.
--- NOTE | 2025-01-20 12:12 | P.PNIM_ITS ---
Progress Note: A&P Assessment and Plan (1) CAP (community acquired pneumonia): Qualifiers: Laterality: left Lung location: unspecified part of lung Qualified Code(s): J18.9 - Pneumonia, unspecified organism Code(s): J18.9 - Pneumonia, unspecified organism Status: Acute (2) CHF (congestive heart failure): Qualifiers: Heart failure type: biventricular Qualified Code(s): I50.82 - Biventricular heart failure Code(s): I50.9 - Heart failure, unspecified Status: Acute (3) Atrial fib/flutter, transient: Code(s): I48.91 - Unspecified atrial fibrillation; I48.92 - Unspecified atrial flutter Status: Acute (4) Hyponatremia: Code(s): E87.1 - Hypo-osmolality and hyponatremia Status: Acute (5) Non-small cell lung cancer: Onset Date: 02/2020 Qualifiers: Laterality: unspecified laterality Qualified Code(s): C34.90 - Malignant neoplasm of unspecified part of unspecified bronchus or lung Code(s): C34.90 - Malignant neoplasm of unspecified part of unspecified bronchus or lung Status: Acute Plan 69-year-old female patient with past medical history of lung cancer on oral chemotherapy, metastasized to liver presenting with worsening shortness of breaths. Chest x-ray was read as bilateral pneumonia. CT chest showsIncrease in size of now small to moderate right and very small left pleural effusions with progression of associated compressive atelectasis in the dependent lower lobes, right greater than left. No significant interval change in a 4.0 x 2.3 cm lenticular mass in the posterior lingula consistent with biopsy-proven lung cancer or cervical scattered pulmonary nodules with increased FDG uptake on prior PET/CT suspicious for metastatic disease.Interval increase in size of a 1.8 x 1.6 cm spiculated nodule with surrounding reticulonodular opacities in the posterior basilar segment of the right lower lobe which could represent progression of metastatic disease with lymphangitic carcinomatosis and/or focal pneumonia with surrounding endobronchial spread of disease. Patient does not use oxygen at home. 1. Acute hypoxic respiratory failure: Secondary to community-acquired pneumonia Worsening metastatic disease Continue with O2 support Follow-up blood culture MRSA nares negative Will stop vancomycin Continue with doxycycline, Zosyn Monitor leukocytosis Pulmonary has been consulted Oncology has been consulted as well Continue with Sarah 2. History of atrial fibrillation: Continue with tele monitoring Continue with amiodarone Eliquis on hold due to thrombocytopenia 3. History of diastolic heart failure: Continue with Entresto 4. Code status: DNR 5. DVT prophylaxis: Eliquis on hold due to thrombocytopenia, monitor platelet count likely in setting of infection/ongoing cancer/chemo 6. Disposition: Pending improvement, can be transferred out of IMU Subjective Date/time seen: 01/20/25 12:12 Interval history: No acute events overnight Review of Systems 2 Review of Systems: All systems reviewed & are unremarkable except as noted in HPI and below Exam Const: General: cooperative, comfortable and no acute distress Orientation/consciousness: patient oriented x3 HENMT: Head: normal to inspection, normocephalic and atraumatic Mouth: Yes moist mucous membranes Eyes: Sclera: sclerae normal Neck: Neck: normal visual inspection and supple Chest: Chest palpation & inspection: normal inspection of the chest (Port-A-Cath intact to right upper chest) Resp: Effort & Inspection: normal respiratory effort Other: Wheezing in anterior lung broderick, coarse crackles at bilateral base Cardio: Rate: regular rate Rhythm: regular rhythm GI: Inspection: normal to inspection Auscultation: normal bowel sounds Skin: General skin exam: normal color Neuro: General: oriented to person, oriented to place and oriented to time Extrem: General: normal to inspection Other: 1+ edema BLE Psych: Appearance: grossly normal Mental Status: mental status grossly normal Speech and movement: Normal speech and movement present Affect: normal affect Attitude: cooperative Objective Data Vital Signs Vital Signs: Vital Signs - 24 hr 01/19/25 13:04 01/19/25 13:09 01/19/25 14:00 Temperature Pulse Rate 77 79 74 Respiratory Rate 20 20 Blood Pressure Pulse Oximetry Oxygen Delivery Oxygen Flow Rate Fraction of Inspired Oxygen 01/19/25 16:00 01/19/25 16:00 01/19/25 16:00 Temperature 97.9 F Pulse Rate 80 84 84 Respiratory Rate 16 18 Blood Pressure 108/61 Pulse Oximetry 91 93 Oxygen Delivery Nasal Cannula Oxygen Flow Rate 4 Fraction of Inspired Oxygen 01/19/25 18:00 01/19/25 19:55 01/19/25 20:00 Temperature 98.3 F Pulse Rate 88 84 86 Respiratory Rate 20 18 Blood Pressure 99/62 L Pulse Oximetry 95 Oxygen Delivery Oxygen Flow Rate Fraction of Inspired Oxygen 01/19/25 20:00 01/19/25 20:00 01/19/25 20:04 Temperature Pulse Rate 86 84 Respiratory Rate 20 Blood Pressure Pulse Oximetry 98 94 Oxygen Delivery Nasal Cannula High Flow Nasal Cannula Oxygen Flow Rate 4 4 Fraction of Inspired Oxygen 36 01/19/25 20:05 01/19/25 22:37 01/20/25 00:00 Temperature 98.6 F Pulse Rate 85 70 86 Respiratory Rate 20 18 Blood Pressure 95/62 L Pulse Oximetry 94 Oxygen Delivery Oxygen Flow Rate Fraction of Inspired Oxygen 01/20/25 00:00 01/20/25 00:00 01/20/25 01:32 Temperature Pulse Rate 80 82 Respiratory Rate 20 Blood Pressure Pulse Oximetry 97 Oxygen Delivery Nasal Cannula Oxygen Flow Rate 4 Fraction of Inspired Oxygen 01/20/25 01:42 01/20/25 02:00 01/20/25 04:00 Temperature Pulse Rate 90 90 Respiratory Rate 20 Blood Pressure Pulse Oximetry 94 Oxygen Delivery Nasal Cannula Oxygen Flow Rate 4 Fraction of Inspired Oxygen 01/20/25 04:00 01/20/25 04:00 01/20/25 06:28 Temperature 98.3 F Pulse Rate 85 90 94 Respiratory Rate 18 Blood Pressure 101/60 Pulse Oximetry 97 Oxygen Delivery Oxygen Flow Rate Fraction of Inspired Oxygen 01/20/25 07:35 01/20/25 07:35 01/20/25 07:42 Temperature Pulse Rate 99 98 98 Respiratory Rate 20 20 20 Blood Pressure Pulse Oximetry 96 Oxygen Delivery High Flow Nasal Cannula Oxygen Flow Rate 4 Fraction of Inspired Oxygen 36 01/20/25 07:45 01/20/25 08:00 01/20/25 08:00 Temperature 98.5 F Pulse Rate 96 99 101 H Respiratory Rate 20 20 Blood Pressure 99/57 L Pulse Oximetry 92 91 Oxygen Delivery High Flow Nasal Cannula Oxygen Flow Rate 2 Fraction of Inspired Oxygen 28 01/20/25 08:47 01/20/25 08:47 Temperature Pulse Rate 104 H 104 H Respiratory Rate Blood Pressure Pulse Oximetry Oxygen Delivery Oxygen Flow Rate Fraction of Inspired Oxygen Intake/Output Intake/Output: Intake & Output 01/17/25 01/18/25 01/19/25 01/20/25 23:59 23:59 22:59 23:59 Intake Total 750 1040 2470 740 Output Total 0 950 1000 400 Balance 882 33 5018 340 Meds/Results Medications: Active Medications Generic Name Dose Route Start Last Admin Trade Name Freq PRN Reason Stop Dose Admin Albuterol/Ipratropium 3 ml 01/19/25 02:00 01/20/25 07:35 Ipratropium 0.5 Mg/Albuterol Sulfate 2.5 Mg (Base) Ampul.Neb 3 Ml INHALATION 3 ml Q6HRT BRANT Administration Alprazolam 0.25 mg 01/17/25 23:35 01/19/25 16:30 Alprazolam (*Crx) 0.25 Mg Tablet PO 0.25 mg BID PRN Administration Anxiety Amiodarone HCl 200 mg 01/18/25 08:00 01/20/25 08:47 Amiodarone Hcl 200 Mg Tablet PO 200 mg DAILY@0800 BRANT Administration Apixaban 5 mg 01/17/25 23:35 01/20/25 08:42 Apixaban 5 Mg Tablet PO Not Given Q12HR BRANT Diphenhydramine HCl 25 mg 01/17/25 23:35 Diphenhydramine Hcl Cap 25 Mg Capsule PO HS PRN allergy symptoms Fluticasone Propionate 1 spray 01/17/25 23:35 Fluticasone Propionate 0.05% Na Spr 16 Gm Btl (*Bkc) NASAL DAILY PRN allergy symptoms Fluticasone/Umeclidinium/Vilanterol 1 puff 01/18/25 08:00 Fluticasone/Umeclidin/Vilanter 100-62.5-25 Mcg Ellipta INHALATION On Hold: 01/18/25 08:00 DAILYRT BRANT Comment: HOLD WHILE ON SCHEDULED DUONEB Gabapentin 300 mg 01/17/25 23:50 01/19/25 20:55 Gabapentin 300 Mg Capsule PO 300 mg HS BRANT Administration Heparin Sodium (Beef Lung) 50 units 01/20/25 09:00 Heparin Flush 50 Units/5 Ml Syringe IV PUSH QAM BRANT Heparin Sodium (Beef Lung) 50 units 01/19/25 15:32 Heparin Flush 50 Units/5 Ml Syringe IV PUSH PRN PRN after intermittent infusion Heparin Sodium (Beef Lung) 50 units 01/19/25 15:32 Heparin Flush 50 Units/5 Ml Syringe IV PUSH PRN PRN after blood draws Heparin Sodium (Porcine) 500 units 01/19/25 15:32 Heparin Sodium Lock Flush 500 Units/5 Ml Syringe IV PUSH PRN PRN see comments below Doxycycline Hyclate 100 mg/ 100 mls @ 100 mls/hr 01/18/25 08:00 01/20/25 08:56 Sodium Chloride IVPB 01/22/25 20:59 100 mls/hr Q12H BRANT Administration Piperacillin Sod/Tazobactam 100 mls @ 200 mls/hr 01/19/25 12:00 01/20/25 06:51 Sod 4.5 gm/ Sodium Chloride IVPB 200 mls/hr Q6H BRANT Administration Vancomycin HCl 1,250 mg in 250 mls @ 166.667 mls/hr 01/20/25 13:00 Vancomycin 1,250 Mg/Ns 250 Ml IVPB Q24H BRANT Ibuprofen 400 mg 01/17/25 23:35 01/19/25 15:24 Ibuprofen 400 Mg Tablet PO 400 mg Q6H PRN Administration fever or pain (1-3) Lidocaine 2 patch 01/18/25 09:00 01/20/25 08:49 Lidocaine 5% Patch TOPICAL 2 patch DAILY BRANT Administration Metoprolol Succinate 25 mg 01/18/25 09:00 01/20/25 08:47 Metoprolol Succinate Ext Rel 25 Mg Tabcr PO 25 mg QAM BRANT Administration Miscellaneous Information 0 each 01/18/25 02:15 01/19/25 01:08 CDT Sotorasib [Lumakras] 320 Mg Tablet- Nonformulary. Please Obtain A Home Supply If Possible. XX 02/17/25 02:14 Not Given [facility] Nicotine 1 patch 01/18/25 09:00 01/20/25 08:49 Nicotine (*Pbkc) 21 Mg Patch TRANSDERM 1 patch DAILY BRANT Administration Non-Formulary Medication 960 mg 01/18/25 21:00 Sotorasib [Lumakras] PO 02/17/25 20:59 QHS BRANT Oxycodone HCl 10 mg 01/17/25 23:35 01/20/25 08:40 Oxycodone Hcl (*Crx) 5 Mg Tab Ir PO 10 mg Q6H PRN Administration Pain Sacubitril/Valsartan 1 tab 01/18/25 09:00 01/20/25 08:47 Sacubitril/Valsartan 24-26 Mg Tablet PO 1 tab Q12HR BRANT Administration Sodium Chloride 1 spray 01/18/25 09:53 Saline 0.65% Lalo Soln 44 Ml Btl NASAL Q6HR PRN Congestion Sodium Chloride 10 ml 01/19/25 22:00 01/20/25 06:54 Central Line Flush IV PUSH 10 ml Q8HR BRANT Administration Vitamin A/Vitamin D 1 applic 01/18/25 02:13 Vitamin A & D Ointment 60 Gm Tube TOPICAL Q4-6H PRN skin irritation Radiology Results: ITS Impressions Chest X-Ray 01/17/25 16:26 Impression: Bilateral pneumonia. Left lung nodule. CT suggested to assess. The lung nodule appears increased in size compared to previous CT. Chest CT 01/17/25 17:21 IMPRESSION: 1. Increase in size of now small to moderate right and very small left pleural effusions with progression of associated compressive atelectasis in the dependent lower lobes, right greater than left. 2. No significant interval change in a 4.0 x 2.3 cm lenticular mass in the posterior lingula consistent with biopsy-proven lung cancer or cervical scattered pulmonary nodules with increased FDG uptake on prior PET/CT suspicious for metastatic disease. 3. Interval increase in size of a 1.8 x 1.6 cm spiculated nodule with surrounding reticulonodular opacities in the posterior basilar segment of the right lower lobe which could represent progression of metastatic disease with lymphangitic carcinomatosis and/or focal pneumonia with surrounding endobronchia l spread of disease. Labs Labs: Laboratory Results - last 24 hr 01/19/25 01/20/25 17:43 06:18 WBC 25.3 H RBC 3.99 L Hgb 12.3 Hct 40.5 MCV 101.5 H MCH 30.8 MCHC 30.4 L RDW 14.3 Plt Count 36 L MPV 9.6 % Immature Plt Fraction 4.0 Sodium 130 L Potassium 4.2 Chloride 99 Carbon Dioxide 30 Anion Gap 1 L BUN 14 Creatinine 0.83 Estim Creat Clear Calc 56 Estimated GFR > 60 Glucose 101 Calcium 7.9 L Total Bilirubin 0.6 AST 223 H ALT 19 Alkaline Phosphatase 148 H Total Protein 5.3 L Albumin 2.8 L Nasal MRSA (PCR) Not detected Quality VTE Prophylaxis VTE prophylaxis: mechanical ordered
[2025-01-20] MEDS: IBUPROFEN 400 MG TABLET PO (12:21)
--- NOTE | 2025-01-20 15:21 | WNDPHOTO ---
PHOTO ONLY - See Nursing Notes and/ or assessments for documentation.
[2025-01-20] MEDS: SODIUM CHLORIDE 0.9% IV 500 ML IV CONT ×2 (16:38→18:14)
--- NOTE | 2025-01-20 17:50 | ECG_ITS ---
Test Date: 2025-01-20 18:08:29 Measurements Intervals [place] Rate: 87 P: 28 KS: 172 QRS: 67 QRSD: 141 T: -21 QT: 389 QTc: 470 Interpretive Statements SINUS RHYTHM LEFT BUNDLE BRANCH BLOCK [120+ ms QRS DURATION, 80+ ms Q/S IN V1/V2, 85+ ms R IN I/aVL/V5/V6] Compared to ECG 01/17/2025 16:29:24 Atrial flutter no longer present Right-axis deviation no longer present Electronically Signed On 01-20-2025 18:47:28 [employer] by Alexys Childers M.D.
--- NOTE | 2025-01-20 18:34 | WPDONCCN ---
Assessment and Plan Assessment and plan (1) Lung cancer: Qualifiers: Laterality: left Lung location: unspecified part of lung Qualified Code(s): C34.92 - Malignant neoplasm of unspecified part of left bronchus or lung Code(s): C34.90 - Malignant neoplasm of unspecified part of unspecified bronchus or lung Status: Acute Assessment and Plan: Patient has metastatic non-small cell lung cancer with progressive disease. Patient had previous liver biopsy done but tempus tumor origin testing was not performed due to poor specimen. I will order repeat liver biopsy to perform the testing and follow-up in the office. Patient may need 2 units of platelet transfusion prior to the biopsy due to low platelet counts. Have recommended to continue to hold Eliquis as long as platelet count is less than 100,000. She will follow-up in the office. HPI Data of Consult Date/Time: 01/20/25 18:34 Requesting Physician: Darryl Mederos MD Primary Care Provider: Melida Ibarra APRN Consult Narrative Narrative: Yessenia Wallis is a 69 year old female with history of metastatic non-small cell lung cancer initially diagnosed with stage 2 disease. Patient previously received chemotherapy with carboplatin Keytruda and Ellipta and completed in December 2020. She was started on maintenance treatment with Keytruda but discontinued in August 2022 due to elevated liver enzymes. Patient was started on targeted therapy with sotorasib in November 2023 due to progressive disease but discontinued in October 2024 due to progressive disease. Patient had liver biopsy done in November 2024 came back positive for poorly differentiated carcinoma but TTF was negative. Plan was to order tempus tumor origin testing on the liver biopsy but was not able to do it due to poor specimen. Patient now came into the hospital with shortness of breath along with tiredness and fatigue. CT chest showed small to moderate right and very small left-sided pleural effusion. There was significant change in 4 x 2.3 cm mass in the lingula. There was a concern for lymphangitic carcinomatosis and focal pneumonia. She was started on antibiotics for pneumonia. Labs showed elevated WBC count and the platelet count has dropped to 36,000. She denies any bleeding. No other new complaints. Review of Systems Review of Systems: Twelve point review of system was reviewed [facility] Past Medical History Medical History (Updated 01/18/25 @ 02:06 by Adamaris Robert APRN) CHF (congestive heart failure) 08/14/2024 Summary 1. Left ventricular chamber dimension is normal. 2. Left ventricular systolic function is normal, estimated at 50-55. 3. The left ventricular diastolic function is grade I diastolic dysfunction. 4. Right ventricular systolic function is normal. 5. There is mild to moderate mitral valve regurgitation. 6. There is mild tricuspid valve regurgitation. 7. There is trivial pericardial effusion. Port-A-Cath in place Chronic anticoagulation Due to atrial fibrillation Paroxysmal atrial fibrillation 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 Hypertension Surgical History Surgical History History of insertion of tunneled central venous catheter (CVC) with port (04/2020) History of laparoscopy History of hysterectomy (1997) History of tonsillectomy (1965) History of cholecystectomy (1998) Family History Family History Grandparent Lung cancer Mother Skin cancer FH: kidney cancer Breast cancer Small bowel cancer Heart problem Congestive heart failure Pacemaker Mother No problems noted. Father Skin cancer Myocardial infarct Heart problem Pacemaker Cardiac defibrillator in place Sibling Pulmonary embolism Heart problem Coronary artery disease Sibling Arthritis Social History Social History Social History: Patient lives at home with her of 50 years. She has 1 son. 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 She used to smoke a some much as 2 packs of cigarettes per day and started smoking around age 19. She cut back significantly on her smoking after cancer diagnosis in 2020. She still smokes 1 or 2 cigarettes a day. She denies any history of alcohol use or illicit substance use. Surrogate medical decision maker: Elliott Wallis, spouse Code status: DNR/DNI Smoking packs per day: 2 Smoking cigarettes per day: 40.0 Years smoked: 50 Smoking pack-years: 100.00 Smoking status: Current every day smoker Tobacco type: cigarettes Second hand tobacco smoke exposure: No Additional smoking assessment comments: Pt has cut back on smoking, but states she still smokes 2-3 cigarettes/day. Alcohol intake: never Substance use: never Substance use type: does not use Do You Feel Safe in your Home?: Yes Lack of Transportation: No Lack of Food: Never True Current Housing: I Have Housing Concerned About Future Housing: No Difficulty Paying Gas/Electric Bills: No Difficulty Paying for Meds: No Currently Unemployed: No Education: High School Diploma/GED Difficulty w/ Childcare or Family Care: No Living arrangements: with family Spiritual care concerns: No Meds Home Medications and Allergies Home Medications ?Medication ?Instructions ?Recorded ?Confirmed ?Type alprazolam 0.25 mg tablet (Xanax) 0.25 mg PO BID PRN Anxiety 04/30/20 01/17/25 History diphenhydramine HCl 25 mg capsule 25 mg PO HS PRN allergy symptoms 10/14/23 01/17/25 History (Benadryl) gabapentin 300 mg capsule 300 mg PO HS 10/14/23 01/17/25 History apixaban 5 mg tablet (Eliquis) 5 mg PO Q12HR #60 tabs 10/18/23 01/17/25 Rx metoprolol succinate 25 mg 25 mg PO QAM #30 tabs 10/18/23 01/17/25 Rx tablet,extended release 24 hr (Toprol XL) fluticasone propionate 50 1 spray intranasal DAILY PRN 06/28/24 01/17/25 History mcg/actuation nasal allergy symptoms spray,suspension ibuprofen 200 mg tablet (Advil) 400 mg PO Q6H PRN fever or pain 06/28/24 01/17/25 History sacubitril 24 mg-valsartan 26 mg 1 tablet PO BID 06/28/24 01/17/25 History tablet (Entresto) sotorasib 320 mg tablet (Lumakras) 960 mg PO QHS 06/28/24 01/17/25 History lidocaine 5 % topical patch 2 patch topical DAILY 08/12/24 01/17/25 History amiodarone 200 mg tablet (Pacerone) 200 mg PO DAILY@0800 #30 tabs 08/16/24 01/17/25 Rx fluticasone fur. 100 mcg-umeclid 1 inh inhalation Q24H #60 ea 11/29/24 01/17/25 Rx 62.5 mcg-vilant 25 mcg inhalat.powder (Trelegy Ellipta) oxycodone 10 mg tablet 10 mg PO Q6H PRN pain #120 tabs 01/02/25 01/17/25 Rx dimethicone 1 %-zinc oxide 10 1 applic topical 4-6XD PRN skin 01/17/25 01/17/25 History %-vit A and D-aloe vera topical irritation cream (A and D Diaper Rash Cream) nicotine 21 mg/24 hr daily 1 patch transdermal DAILY 01/17/25 01/17/25 History transdermal patch Allergies Allergy/AdvReac Type Severity Reaction Status Date / Time pentazocine (From Anjali) Allergy Irritable Verified 01/18/25 06:07 [id number] Reductase AdvReac Severe Muscle Pain Verified 01/18/25 06:07 Inhibitor Vital Signs Vital Signs - 24 hr 01/19/25 19:55 01/19/25 20:00 01/19/25 20:00 Temperature 36.8 C Pulse Rate 84 86 Respiratory Rate 20 18 Blood Pressure 99/62 L Pulse Oximetry 95 98 Oxygen Delivery Nasal Cannula Oxygen Flow Rate 4 Fraction of Inspired Oxygen 01/19/25 20:00 01/19/25 20:04 01/19/25 20:05 Temperature Pulse Rate 86 84 85 Respiratory Rate 20 20 Blood Pressure Pulse Oximetry 94 Oxygen Delivery High Flow Nasal Cannula Oxygen Flow Rate 4 Fraction of Inspired Oxygen 36 01/19/25 22:37 01/20/25 00:00 01/20/25 00:00 Temperature 37.0 C Pulse Rate 70 86 Respiratory Rate 18 Blood Pressure 95/62 L Pulse Oximetry 94 97 Oxygen Delivery Nasal Cannula Oxygen Flow Rate 4 Fraction of Inspired Oxygen 01/20/25 00:00 01/20/25 01:32 01/20/25 01:42 Temperature Pulse Rate 80 82 90 Respiratory Rate 20 20 Blood Pressure Pulse Oximetry Oxygen Delivery Oxygen Flow Rate Fraction of Inspired Oxygen 01/20/25 02:00 01/20/25 04:00 01/20/25 04:00 Temperature Pulse Rate 90 85 Respiratory Rate Blood Pressure Pulse Oximetry 94 Oxygen Delivery Nasal Cannula Oxygen Flow Rate 4 Fraction of Inspired Oxygen 01/20/25 04:00 01/20/25 06:28 01/20/25 07:35 Temperature 36.8 C Pulse Rate 90 94 99 Respiratory Rate 18 20 Blood Pressure 101/60 Pulse Oximetry 97 Oxygen Delivery Oxygen Flow Rate Fraction of Inspired Oxygen 01/20/25 07:35 01/20/25 07:42 01/20/25 07:45 Temperature 36.9 C Pulse Rate 98 98 96 Respiratory Rate 20 20 20 Blood Pressure 99/57 L Pulse Oximetry 96 92 Oxygen Delivery High Flow Nasal Cannula Oxygen Flow Rate 4 Fraction of Inspired Oxygen 36 01/20/25 08:00 01/20/25 08:00 01/20/25 08:47 Temperature Pulse Rate 99 101 H 104 H Respiratory Rate 20 Blood Pressure Pulse Oximetry 91 Oxygen Delivery High Flow Nasal Cannula Oxygen Flow Rate 2 Fraction of Inspired Oxygen 28 01/20/25 08:47 01/20/25 12:00 01/20/25 14:27 Temperature Pulse Rate 104 H 92 96 Respiratory Rate 20 Blood Pressure Pulse Oximetry Oxygen Delivery Oxygen Flow Rate Fraction of Inspired Oxygen 01/20/25 14:35 01/20/25 15:41 01/20/25 16:27 Temperature 36.7 C 36.6 C Pulse Rate 98 97 102 H Respiratory Rate 20 20 18 Blood Pressure 99/61 L 86/44 L Pulse Oximetry 96 95 Oxygen Delivery Oxygen Flow Rate Fraction of Inspired Oxygen 01/20/25 17:12 01/20/25 17:53 Temperature Pulse Rate Respiratory Rate Blood Pressure 87/47 L 84/42 L Pulse Oximetry Oxygen Delivery Oxygen Flow Rate Fraction of Inspired Oxygen Exam Narrative: Lungs are clear to auscultation bilaterally Cardiovascular regular rate rhythm no murmurs Abdomen soft nontender nondistended Extremities no edema Results Labs 01/20/25 06:18 01/20/25 06:18 Labs: Short CBC 01/20/25 Range/Units 06:18 WBC 25.3 H (4.5-10.0) K/mm3 Hgb 12.3 (12.0-15.0) g/dL Hct 40.5 (37.0-47.0) % Plt Count 36 L (150-375) k/mm3 BMP 01/20/25 06:18 Sodium 130 L Potassium 4.2 Chloride 99 Carbon Dioxide 30 BUN 14 Creatinine 0.83 Glucose 101 Calcium 7.9 L Liver Function 01/20/25 Range/Units 06:18 Total Bilirubin 0.6 (0.2-1.3) mg/dL AST 223 H (14-36) U/L ALT 19 (6-35) U/L Alkaline Phosphatase 148 H (38-126) U/L Albumin 2.8 L (3.5-5.1) g/dL
[2025-01-20] MEDS: GABAPENTIN 300 MG CAPSULE PO (21:30)
[2025-01-21] VITALS (24 sets, daily range): BP systolic 93–122; BP diastolic 60–77; PULSE 69–134; RESP 16–21; TEMP 36.2–36.6; O2SAT 91–98
[2025-01-21] MEDS: oxyCODONE HCL (*CRX) 5 MG TAB IR 10 MG PO ×4 (02:21→21:16)
[2025-01-21] MEDS: IPRATROPIUM 0.5 MG/ALBUTEROL SULFATE 2.5 MG (BASE) AMPUL.NEB 3 ML INHALATION ×3 (02:47→14:42)
[2025-01-21] MEDS: CENTRAL LINE FLUSH 10 ML IV PUSH ×3 (05:40→21:16)
[2025-01-21] MEDS: PIPERACILLIN/TAZOBACTAM SOD 4.5 GM in SODIUM CHLORIDE 0.9% IV 100 ML 200 ML IVPB ×2 (05:40→12:57)
[2025-01-21 06:03] LABS: Hematocrit 41.8 % (37.0-47.0); Hemoglobin 12.5 g/dL (12.0-15.0); Immature Platelet Fraction Pct 5.2 % (0.9-11.2); Mean Corpuscular HGB Conc 29.9 g/dl (32-36); Mean Corpuscular Hemoglobin 30.6 pg (26-34); Mean Corpuscular Volume 102.5 fl (80-100); Platelet Count Result 36 k/mm3 (150-375); Red Blood Count 4.08 M/mm3 (4.2-5.4); White Blood Count 25.6 K/mm3 (4.5-10.0)
[2025-01-21 06:14] LABS: Anion Gap 2 mmol/L (4-12); Blood Urea Nitrogen 15 mg/dL (7-17); Calcium 8.0 mg/dL (8.4-10.2); Carbon Dioxide 29 mmol/L (22-30); Chloride 100 mmol/L (98-107); Estimated CRCL calculation 60 ml/min; Estimated Glomerular Filt Rate > 60; Glucose 94 mg/dL (65-110); Potassium 4.2 mmol/L (3.4-5.0); Sodium 131 mmol/L (137-145)
[2025-01-21 06:46] LABS: Band Neutrophils Percent 13 % (0-6); Lymphocytes Absolute Manual 1.28 K/mm3 (1.1-4.5); Lymphocytes Percent Manual 5 % (18-44); Monocytes Absolute Manual 2.56 K/mm3 (0.1-0.90); Monocytes Percent Manual 10 % (3-9); Neutrophils Absolute Manual 21.76 K/mm3 (1.3-6.7); Neutrophils Percent Manual 72 % (46-73); Schistocytes None Seen; Total Cells Counted 100
--- NOTE | 2025-01-21 10:08 | P.PNIM_ITS ---
Progress Note: A&P Assessment and Plan (1) CAP (community acquired pneumonia): Qualifiers: Laterality: left Lung location: unspecified part of lung Qualified Code(s): J18.9 - Pneumonia, unspecified organism Code(s): J18.9 - Pneumonia, unspecified organism Status: Acute (2) CHF (congestive heart failure): Qualifiers: Heart failure type: biventricular Qualified Code(s): I50.82 - Biventricular heart failure Code(s): I50.9 - Heart failure, unspecified Status: Acute (3) Atrial fib/flutter, transient: Code(s): I48.91 - Unspecified atrial fibrillation; I48.92 - Unspecified atrial flutter Status: Acute (4) Hyponatremia: Code(s): E87.1 - Hypo-osmolality and hyponatremia Status: Acute (5) Non-small cell lung cancer: Onset Date: 02/2020 Qualifiers: Laterality: unspecified laterality Qualified Code(s): C34.90 - Malignant neoplasm of unspecified part of unspecified bronchus or lung Code(s): C34.90 - Malignant neoplasm of unspecified part of unspecified bronchus or lung Status: Acute (6) Thrombocytopenia: Code(s): D69.6 - Thrombocytopenia, unspecified Status: Acute Plan 69-year-old female patient with past medical history of lung cancer on oral chemotherapy, metastasized to liver presenting with worsening shortness of breaths. Chest x-ray was read as bilateral pneumonia. CT chest showsIncrease in size of now small to moderate right and very small left pleural effusions with progression of associated compressive atelectasis in the dependent lower lobes, right greater than left. No significant interval change in a 4.0 x 2.3 cm lenticular mass in the posterior lingula consistent with biopsy-proven lung cancer or cervical scattered pulmonary nodules with increased FDG uptake on prior PET/CT suspicious for metastatic disease.Interval increase in size of a 1.8 x 1.6 cm spiculated nodule with surrounding reticulonodular opacities in the posterior basilar segment of the right lower lobe which could represent progression of metastatic disease with lymphangitic carcinomatosis and/or focal pneumonia with surrounding endobronchial spread of disease. Patient does not use oxygen at home. 1. Acute hypoxic respiratory failure: likely 2/2 community-acquired pneumonia vs Worsening metastatic disease continue Zosyn and doxycycline Continue with O2 support blood culture no growth to date MRSA nares negative Continue with DuoNebs 2. Non-small cell lung cancer with metastatic disease Oncology has been consulted as well Liver biopsy tomorrow 2 units of platelet order for transfusion 3. Thrombocytopenia Likely secondary to the malignancy Platelet transfusion 4. History of atrial fibrillation: Continue with tele monitoring Continue with amiodarone Eliquis on hold due to thrombocytopenia 5. History of diastolic heart failure: Continue with Entresto 6. Code status: DNR 7. DVT prophylaxis: Eliquis on hold due to thrombocytopenia, monitor platelet count likely in setting of infection/ongoing cancer/chemo 8. Disposition: Pending improvement Time Spent With Patient Time: 40 minutes Subjective Date/time seen: 01/21/25 10:08 Interval history: She still has shortness of breath. She is on 4 L nasal cannula. Hypoxia is new to her. During get a liver biopsy because her platelet was low and she required platelet transfusion. Liver biopsy scheduled for tomorrow. NPO midnight. Review of Systems Review of Systems: All systems reviewed & are unremarkable except as noted in HPI and below Exam Narrative: APPEARANCE: No acute distress, nontoxic. on NC EYES: EOMI HEENT: Normocephalic, atraumatic, OMM RESPIRATORY: No respiratory distress Clear to auscultation bilaterally with no rhonchi wheezing or rales. CARDIOVASCULAR: RRR, S1 and S2 without murmurs rubs or gallops. ABDOMINAL: Soft, nontender, nondistended, no rebound or guarding MSK: 5/5 motor strength throughout her extremities. NEURO: Awake and alert. Following commands, speech normal, no focal deficits SKIN:: Warm, dry. No rashes lesions or abrasions PSYCHIATRIC: Normal affect/mood Objective Data Vital Signs Vital Signs: Vital Signs - 24 hr 01/20/25 12:00 01/20/25 14:27 01/20/25 14:35 Temperature Pulse Rate 92 96 98 Respiratory Rate 20 20 Blood Pressure Pulse Oximetry Oxygen Delivery Oxygen Flow Rate Fraction of Inspired Oxygen 01/20/25 15:41 01/20/25 16:00 01/20/25 16:27 Temperature 36.7 C 36.6 C Pulse Rate 97 104 H 102 H Respiratory Rate 20 18 Blood Pressure 99/61 L 86/44 L Pulse Oximetry 96 95 Oxygen Delivery Oxygen Flow Rate Fraction of Inspired Oxygen 01/20/25 17:12 01/20/25 17:53 01/20/25 19:50 Temperature 36.8 C Pulse Rate 84 Respiratory Rate 16 Blood Pressure 87/47 L 84/42 L 119/66 Pulse Oximetry 92 Oxygen Delivery Oxygen Flow Rate Fraction of Inspired Oxygen 01/20/25 20:00 01/20/25 20:00 01/20/25 20:01 Temperature Pulse Rate 85 87 Respiratory Rate 20 Blood Pressure Pulse Oximetry 93 Oxygen Delivery Nasal Cannula Oxygen Flow Rate 2 Fraction of Inspired Oxygen 01/20/25 20:04 01/20/25 20:11 01/21/25 00:00 Temperature Pulse Rate 87 90 79 Respiratory Rate 20 20 Blood Pressure Pulse Oximetry 90 Oxygen Delivery Nasal Cannula Oxygen Flow Rate 2 Fraction of Inspired Oxygen 28 01/21/25 02:47 01/21/25 02:58 01/21/25 04:00 Temperature Pulse Rate 85 85 89 Respiratory Rate 20 20 Blood Pressure Pulse Oximetry Oxygen Delivery Oxygen Flow Rate Fraction of Inspired Oxygen 01/21/25 05:05 01/21/25 08:00 01/21/25 08:01 Temperature 36.3 C L Pulse Rate 81 87 87 Respiratory Rate 18 20 20 Blood Pressure 93/60 L Pulse Oximetry 93 91 Oxygen Delivery Nasal Cannula Oxygen Flow Rate 2 Fraction of Inspired Oxygen 28 01/21/25 08:05 Temperature Pulse Rate 89 Respiratory Rate 20 Blood Pressure Pulse Oximetry Oxygen Delivery Oxygen Flow Rate Fraction of Inspired Oxygen Intake/Output Intake/Output: Intake & Output 01/18/25 01/19/25 01/20/25 01/21/25 23:59 22:59 23:59 23:59 Intake Total 1040 2470 1820 500 Output Total 950 1000 750 Balance 90 1470 1070 500 Meds/Results Medications: Active Medications Generic Name Dose Route Start Last Admin Trade Name Freq PRN Reason Stop Dose Admin Albuterol/Ipratropium 3 ml 01/19/25 02:00 01/21/25 08:00 Ipratropium 0.5 Mg/Albuterol Sulfate 2.5 Mg (Base) Ampul.Neb 3 Ml INHALATION 3 ml Q6HRT BRANT Administration Alprazolam 0.25 mg 01/17/25 23:35 01/19/25 16:30 Alprazolam (*Crx) 0.25 Mg Tablet PO 0.25 mg BID PRN Administration Anxiety Amiodarone HCl 200 mg 01/18/25 08:00 01/20/25 08:47 Amiodarone Hcl 200 Mg Tablet PO 200 mg DAILY@0800 [facility] Administration Apixaban 5 mg 01/17/25 23:35 01/20/25 08:42 Apixaban 5 Mg Tablet PO Not Given On Hold: 01/20/25 12:21 Q12HR BRANT Diphenhydramine HCl 25 mg 01/17/25 23:35 Diphenhydramine Hcl Cap 25 Mg Capsule PO HS PRN allergy symptoms Fluticasone Propionate 1 spray 01/17/25 23:35 Fluticasone Propionate 0.05% Na Spr 16 Gm Btl (*Bkc) NASAL DAILY PRN allergy symptoms Fluticasone/Umeclidinium/Vilanterol 1 puff 01/18/25 08:00 Fluticasone/Umeclidin/Vilanter 100-62.5-25 Mcg Ellipta INHALATION On Hold: 01/18/25 08:00 DAILYRT BRANT Comment: HOLD WHILE ON SCHEDULED DUONEB Gabapentin 300 mg 01/17/25 23:50 01/20/25 21:30 Gabapentin 300 Mg Capsule PO 300 mg HS BRANT Administration Heparin Sodium (Beef Lung) 50 units 01/20/25 09:00 01/20/25 12:32 Heparin Flush 50 Units/5 Ml Syringe IV PUSH Not Given QAM BRANT Heparin Sodium (Beef Lung) 50 units 01/19/25 15:32 Heparin Flush 50 Units/5 Ml Syringe IV PUSH PRN PRN after intermittent infusion Heparin Sodium (Beef Lung) 50 units 01/19/25 15:32 Heparin Flush 50 Units/5 Ml Syringe IV PUSH PRN PRN after blood draws Heparin Sodium (Porcine) 500 units 01/19/25 15:32 Heparin Sodium Lock Flush 500 Units/5 Ml Syringe IV PUSH PRN PRN see comments below Doxycycline Hyclate 100 mg/ 100 mls @ 100 mls/hr 01/18/25 08:00 01/20/25 22:30 Sodium Chloride IVPB 01/22/25 20:59 Infused Q12H BRANT Infusion Piperacillin Sod/Tazobactam 100 mls @ 200 mls/hr 01/19/25 12:00 01/21/25 06:10 Sod 4.5 gm/ Sodium Chloride IVPB Infused Q6H BRANT Infusion Sodium Chloride 250 mls @ 30 mls/hr 01/21/25 10:02 Normal Saline Iv IV CONT 01/21/25 18:21 .Q8H20M STA Ibuprofen 400 mg 01/17/25 23:35 01/20/25 12:21 Ibuprofen 400 Mg Tablet PO 400 mg Q6H PRN Administration fever or pain (1-3) Lidocaine 2 patch 01/18/25 09:00 01/20/25 08:49 Lidocaine 5% Patch TOPICAL 2 patch DAILY BRANT Administration Metoprolol Succinate 25 mg 01/18/25 09:00 01/20/25 08:47 Metoprolol Succinate Ext Rel 25 Mg Tabcr PO 25 mg QAM BRANT Administration Miscellaneous Information 0 each 01/18/25 02:15 01/20/25 12:32 Sotorasib [Lumakras] 320 Mg Tablet- Nonformulary. Please Obtain A Home Supply If Possible. XX 02/17/25 02:14 Not Given CLARIFY BRANT Nicotine 1 patch 01/18/25 09:00 01/20/25 08:49 Nicotine (*Pbkc) 21 Mg Patch TRANSDERM 1 patch DAILY BRANT Administration Non-Formulary Medication 960 mg 01/18/25 21:00 Sotorasib [Lumakras] PO 02/17/25 20:59 QHS BRANT Oxycodone HCl 10 mg 01/17/25 23:35 01/21/25 08:52 Oxycodone Hcl (*Crx) 5 Mg Tab Ir PO 10 mg Q6H PRN Administration Pain Sacubitril/Valsartan 1 tab 01/18/25 09:00 01/20/25 21:30 Sacubitril/Valsartan 24-26 Mg Tablet PO 1 tab Q12HR BRANT Administration Sodium Chloride 1 spray 01/18/25 09:53 Saline 0.65% Lalo Soln 44 Ml Btl NASAL Q6HR PRN Congestion Sodium Chloride 10 ml 01/19/25 22:00 01/21/25 05:40 Central Line Flush IV PUSH 10 ml Q8HR BRANT Administration Vitamin A/Vitamin D 1 applic 01/18/25 02:13 Vitamin A & D Ointment 60 Gm Tube TOPICAL Q4-6H PRN skin irritation Radiology Results: ITS Impressions Chest X-Ray 01/17/25 16:26 Impression: Bilateral pneumonia. Left lung nodule. CT suggested to assess. The lung nodule appears increased in size compared to previous CT. Chest CT 01/17/25 17:21 IMPRESSION: 1. Increase in size of now small to moderate right and very small left pleural effusions with progression of associated compressive atelectasis in the dependent lower lobes, right greater than left. 2. No significant interval change in a 4.0 x 2.3 cm lenticular mass in the posterior lingula consistent with biopsy-proven lung cancer or cervical scattered pulmonary nodules with increased FDG uptake on prior PET/CT suspicious for metastatic disease. 3. Interval increase in size of a 1.8 x 1.6 cm spiculated nodule with surrounding reticulonodular opacities in the posterior basilar segment of the right lower lobe which could represent progression of metastatic disease with lymphangitic carcinomatosis and/or focal pneumonia with surrounding endobronchial spread of disease. Labs Labs: Laboratory Results - last 24 hr 01/21/25 05:53 WBC 25.6 H RBC 4.08 L Hgb 12.5 Hct 41.8 MCV 102.5 H MCH 30.6 MCHC 29.9 L RDW 14.3 Plt Count 36 L MPV 10.5 H Immature Gran % (Auto) Not Reportable Neut % (Auto) Not Reportable Lymph % (Auto) Not Reportable [place] % (Auto) Not Reportable Eos % (Auto) Not Reportable Baso % (Auto) Not Reportable Lymph # (Auto) Not Reportable [place] # (Auto) Not Reportable Eos # (Auto) Not Reportable Baso # (Auto) Not Reportable Abs Immat Gran (auto) Not Reportable Absolute Neuts (auto) Not Reportable Absolute Nucleated RBC Not Reportable Total Counted 100 Neutrophils % (Manual) 72 Band Neutrophils % 13 H Lymphocytes % (Manual) 5 L Monocytes % (Manual) 10 H Nucleated RBC % Not Reportable Abs Neuts (Manual) 21.76 H Abs Lymphs (Manual) 1.28 Abs Monocytes (Manual) 2.56 H Platelet Estimate Decreased % Immature Plt Fraction 5.2 Schistocytes None seen Sodium 131 L Potassium 4.2 Chloride 100 Carbon Dioxide 29 Anion Gap 2 L BUN 15 Creatinine 0.76 Estim Creat Clear Calc 60 Estimated GFR > 60 Glucose 94 Calcium 8.0 L Quality VTE Prophylaxis VTE prophylaxis: mechanical ordered
[2025-01-21] MEDS: SACUBITRIL/VALSARTAN 24-26 MG TABLET 1 TAB PO ×2 (10:45→20:28)
[2025-01-21] MEDS: AMIODARONE HCL 200 MG TABLET PO (10:46)
[2025-01-21] MEDS: METOPROLOL SUCCINATE EXT REL 25 MG TABCR PO (10:46)
[2025-01-21] MEDS: DOXYCYCLINE IV 100 MG in SODIUM CHLORIDE 0.9% IV 100 ML IVPB ×2 (10:47→20:27)
[2025-01-21] MEDS: LIDOCAINE 5% PATCH 2 PATCH TOPICAL (10:47)
[2025-01-21] MEDS: NICOTINE (*PBKC) 21 MG PATCH 1 PATCH TRANSDERM (10:50)
[2025-01-21] MEDS: SODIUM CHLORIDE 0.9% IV 250 ML 30 ML IV CONT (14:15)
--- NOTE | 2025-01-21 17:09 | ECG_ITS ---
Test Date: 2025-01-21 17:49:30 Measurements Intervals [place] Rate: 133 P: 0 WA: 0 QRS: -62 QRSD: 133 T: 35 QT: 315 QTc: 470 Interpretive Statements ATRIAL FLUTTER/TACHYCARDIA WITH RAPID VENTRICULAR RESPONSE INTRAVENTRICULAR CONDUCTION DELAY [130+ ms QRS DURATION] ANTEROLATERAL MYOCARDIAL INFARCTION [40+ ms Q WAVE IN I/aVL/V3-V6], OF INDETERMINATE AGE Electronically Signed On 01-21-2025 21:28:06 ORDER FILLER by Alexys Childers M.D.
[2025-01-21] MEDS: METOPROLOL TARTRATE INJ 5 MG/5 ML VIAL IV PUSH ×2 (18:30→19:18)
[2025-01-21] MEDS: PIPERACILLIN/TAZOBACTAM SOD 4.5 GM in SODIUM CHLORIDE 0.9% IV 100 ML IVPB ×2 (18:31→23:30)
[2025-01-21] MEDS: ALPRAZolam (*CRX) 0.25 MG TABLET PO (18:52)
[2025-01-21 18:55] LABS: Magnesium 1.7 mg/dL (1.6-2.3)
[2025-01-21] MEDS: GABAPENTIN 300 MG CAPSULE PO (20:28)
[2025-01-22] VITALS (23 sets, daily range): BP systolic 70–104; BP diastolic 52–78; PULSE 73–137; RESP 18–22; TEMP 36.4–36.8; O2SAT 88–100
[2025-01-22] MEDS: PIPERACILLIN/TAZOBACTAM SOD 4.5 GM in SODIUM CHLORIDE 0.9% IV 100 ML IVPB ×2 (05:56→13:52)
[2025-01-22] MEDS: CENTRAL LINE FLUSH 10 ML IV PUSH ×2 (06:04→14:50)
[2025-01-22] MEDS: oxyCODONE HCL (*CRX) 5 MG TAB IR 10 MG PO (06:04)
[2025-01-22 06:10] LABS: Immature Platelet Fraction Pct 3.8 % (0.9-11.2); Platelet Count Result 70 k/mm3 (150-375)
[2025-01-22 06:23] LABS: INR 1.4; Prothrombin Time 17.2 Seconds (11.1-14.7)
[2025-01-22 06:24] LABS: Partial Thromboplastin Time 31.1 Seconds (22.3-36.8)
--- NOTE | 2025-01-22 08:06 | ECG_ITS ---
Test Date: 2025-01-22 08:54:42 Measurements Intervals [place] Rate: 90 P: 25 RI: 212 QRS: 18 QRSD: 141 T: 31 QT: 396 QTc: 486 Interpretive Statements SINUS RHYTHM WITH FIRST DEGREE AV BLOCK WITH FREQUENT SUPRAVENTRICULAR PREMATURE COMPLEXES INDETERMINATE AXIS LEFT BUNDLE-BRANCH BLOCK ABNORMAL ECG Compared to ECG 01/21/2025 17:49:30 First degree AV block now present Indeterminate axis now present Atrial flutter no longer present Myocardial infarct finding no longer present Electronically Signed On 01-22-2025 14:37:42 PROCESS LINE OPERATOR by Ryan Medrano M.D.
[2025-01-22 08:49] LABS: Hematocrit 44.1 % (37.0-47.0); Hemoglobin 13.0 g/dL (12.0-15.0); Immature Granulocyte Percent A 1.1 % (0-0.5); Lymphocytes Absolute Auto 0.78 K/mm3 (0.9-3.2); Mean Corpuscular HGB Conc 29.5 g/dl (32-36); Mean Corpuscular Hemoglobin 30.4 pg (26-34); Mean Corpuscular Volume 103.0 fl (80-100); Nucleated Red Blood Cells Absolute Auto 0.040 K/mm3 (0.0-0.012); Nucleated Red Blood Cells Perc 0.1 % (0.0-0.2); Red Blood Count 4.28 M/mm3 (4.2-5.4); White Blood Count 30.7 K/mm3 (4.5-10.0)
[2025-01-22 08:53] LABS: Hypochromasia Occasional; Schistocytes None Seen
[2025-01-22] MEDS: DOXYCYCLINE IV 100 MG in SODIUM CHLORIDE 0.9% IV 100 ML IVPB ×2 (09:10→21:30)
[2025-01-22 09:11] LABS: Alanine Aminotransferase 28 U/L (6-35); Albumin Level 2.9 g/dL (3.5-5.1); Alkaline Phosphatase 168 U/L (38-126); Anion Gap 2 mmol/L (4-12); Aspartate Amino Transferase 241 U/L (14-36); Bilirubin,Total 0.8 mg/dL (0.2-1.3); Blood Urea Nitrogen 18 mg/dL (7-17); Calcium 8.3 mg/dL (8.4-10.2); Carbon Dioxide 30 mmol/L (22-30); Chloride 99 mmol/L (98-107); Estimated CRCL calculation 58 ml/min; Estimated Glomerular Filt Rate > 60; Glucose 93 mg/dL (65-110); Magnesium 1.8 mg/dL (1.6-2.3); Potassium 4.5 mmol/L (3.4-5.0); Sodium 131 mmol/L (137-145); Total Protein 5.4 g/dL (6.3-8.2)
[2025-01-22] MEDS: NICOTINE (*PBKC) 21 MG PATCH 1 PATCH TRANSDERM (09:14)
[2025-01-22] MEDS: LIDOCAINE 5% PATCH 2 PATCH TOPICAL (09:14)
--- NOTE | 2025-01-22 09:34 | S_PTH ---
PATIENT: Yessenia Wallis LOC: [id number] U#:[id number] AGE/SX: 69/F ROOM: 260 RE01/17/[address]: Mamie Larson MD : 1955 BED: 01 DIS: 01/23/2025 SPEC #: [id number] RECD: 01/22/25 13:10 STATUS: CORDELIA REDeepali #: [id number] JEAN CLAUDE: 01/22/25 09:[address]: Malik Lewis DEPT: [facility] Surgical RECD BY: Maribel Mandel ENTERED: 01/22/25 13:10 SP TYPE: Surgical OTHR DR: MD Darryl Arellano MD Addis Mekonnen, MD Lindsey M. Senci, APRN Samir Shah, MD Tissues: A - Liver Biopsy Procedures: P63 TTF Unstained Slides Hematoxylin and Eosin Stain Gross and Microscopic Level 5 CK 20 CK 7 Napsin A
[2025-01-22] MEDS: diazePAM INJ (*CRX) 10 MG/2 ML SYRINGE 5 MG IV PUSH (09:40)
--- NOTE | 2025-01-22 11:10 | CY_PTH ---
PATIENT: Yessenia Wallis LOC: [id number] U#:[id number] AGE/SX: 69/F ROOM: 260 RE01/17/[address]: Mamie Larson MD : 1955 BED: 01 DIS: 01/23/2025 SPEC #: [id number] RECD: 01/23/25 08:02 STATUS: YURIYIrvin REQ #: [id number] JEAN CLAUDE: 01/22/25 11:[address]: Lance Jang DEPT: [facility] Cytology RECD BY: Maribel Mandel ENTERED: 01/23/25 08:03 SP TYPE: Cytology OTHR DR: MD Ana Caruso MD Aftab A. Khan, MD Addis Mekonnen, MD Lindsey M. Senci, APRN Samir Shah, MD Tissues: A - Pleural Fluid Procedures: Hematoxylin and Eosin Stain Cell Block Cytopathology Cytospin
--- NOTE | 2025-01-22 11:31 | PCPTNOTE ---
Attempted to see patient for PT, however patient was out of the room for testing/procedure.
[2025-01-22] MEDS: SODIUM CHLORIDE 0.9% IV 1,000 ML 999 ML IV CONT (13:19)
--- NOTE | 2025-01-22 13:49 | PM.IMPN ---
Progress Note: A&P Assessment and Plan (1) CAP (community acquired pneumonia): Qualifiers: Laterality: left Lung location: unspecified part of lung Qualified Code(s): J18.9 - Pneumonia, unspecified organism Code(s): J18.9 - Pneumonia, unspecified organism Status: Acute (2) CHF (congestive heart failure): Qualifiers: Heart failure type: biventricular Qualified Code(s): I50.82 - Biventricular heart failure Code(s): I50.9 - Heart failure, unspecified Status: Acute (3) Atrial fib/flutter, transient: Code(s): I48.91 - Unspecified atrial fibrillation; I48.92 - Unspecified atrial flutter Status: Acute (4) Hyponatremia: Code(s): E87.1 - Hypo-osmolality and hyponatremia Status: Acute (5) Non-small cell lung cancer: Onset Date: 02/2020 Qualifiers: Laterality: unspecified laterality Qualified Code(s): C34.90 - Malignant neoplasm of unspecified part of unspecified bronchus or lung Code(s): C34.90 - Malignant neoplasm of unspecified part of unspecified bronchus or lung Status: Acute Assessment and Plan: 69-year-old female patient with past medical history of lung cancer on oral chemotherapy, metastasized to liver presenting with worsening shortness of breaths. Chest x-ray was read as bilateral pneumonia. CT chest showsIncrease in size of now small to moderate right and very small left pleural effusions with progression of associated compressive atelectasis in the dependent lower lobes, right greater than left. No significant interval change in a 4.0 x 2.3 cm lenticular mass in the posterior lingula consistent with biopsy-proven lung cancer or cervical scattered pulmonary nodules with increased FDG uptake on prior PET/CT suspicious for metastatic disease.Interval increase in size of a 1.8 x 1.6 cm spiculated nodule with surrounding reticulonodular opacities in the posterior basilar segment of the right lower lobe which could represent progression of metastatic disease with lymphangitic carcinomatosis and/or focal pneumonia with surrounding endobronchial spread of disease. Patient does not use oxygen at home. 1. Pneumonia with Acute hypoxic respiratory failure: community-acquired pneumonia vs Worsening metastatic disease continue Zosyn and doxycycline Continue with O2 support, weanm to maintain saturations >90% blood culture no growth to date MRSA nares negative Continue with DuoNebs 2. Moderate right sided pleural effusion Chest ct shows worsening pleural effusion Thoracentesis performed with lab work Supplement oxygen weaned down 1100 taken off Treat respiratory status Continuous pulse ox for now 3. Hypotension Most likely related to the thoracentesis Continue current blood pressure 1 L of LR given Trend blood pressure Consider albumin 4. Non-small cell lung cancer with metastatic disease Oncology has been consulted as well Liver biopsy preformed await further results 2 units of platelet order for transfusion 5. Thrombocytopenia with leukocytosis Likely secondary to the malignancy Platelet transfusion Currently 70 from 36 WBCs elevated at 30.7 today Continue to trend Most likely related to malignancy 6. History of atrial fibrillation: Continue with tele monitoring Continue with amiodarone Eliquis on hold due to thrombocytopenia 7. History of diastolic heart failure: Continue with Entresto 8. Code status: DNR 9. DVT prophylaxis: Eliquis on hold due to thrombocytopenia, monitor platelet count likely in setting of infection/ongoing cancer/chemo 9. Disposition: Pending improvement Time Spent With Patient Time: 51 minutes Subjective Date/time seen: 01/22/25 13:49 Objective Data Vital Signs Vital Signs: Vital Signs - 24 hr 01/21/25 14:10 01/21/25 14:30 01/21/25 14:35 Temperature 97.4 F L 97.1 F L Pulse Rate 86 69 84 Respiratory Rate 21 H 20 20 Blood Pressure 116/69 116/71 Pulse Oximetry 97 96 Oxygen Delivery Oxygen Flow Rate 01/21/25 14:42 01/21/25 15:30 01/21/25 16:00 Temperature 97.5 F L 97.7 F Pulse Rate 87 88 81 Respiratory Rate 20 18 16 Blood Pressure 111/69 122/63 Pulse Oximetry 92 98 Oxygen Delivery Oxygen Flow Rate 01/21/25 16:00 01/21/25 16:25 01/21/25 18:30 Temperature 97.3 F L Pulse Rate 86 130 H 134 H Respiratory Rate 20 Blood Pressure 112/77 Pulse Oximetry 97 Oxygen Delivery Oxygen Flow Rate 01/21/25 19:18 01/21/25 20:00 01/21/25 20:00 Temperature Pulse Rate 131 H 81 Respiratory Rate Blood Pressure Pulse Oximetry 93 Oxygen Delivery Nasal Cannula Oxygen Flow Rate 3 01/21/25 20:16 01/21/25 20:21 01/21/25 20:25 Temperature Pulse Rate 81 81 83 Respiratory Rate 20 20 Blood Pressure Pulse Oximetry 98 Oxygen Delivery Nasal Cannula Oxygen Flow Rate 4 01/21/25 21:57 01/22/25 00:00 01/22/25 01:57 Temperature 97.9 F Pulse Rate 84 78 79 Respiratory Rate 20 22 H Blood Pressure 100/70 Pulse Oximetry 97 Oxygen Delivery Oxygen Flow Rate 01/22/25 01:57 01/22/25 02:10 01/22/25 04:00 Temperature Pulse Rate 79 81 73 Respiratory Rate 22 H Blood Pressure Pulse Oximetry 93 Oxygen Delivery Nasal Cannula Oxygen Flow Rate 3 01/22/25 05:51 01/22/25 07:34 01/22/25 07:34 Temperature 97.5 F L Pulse Rate 81 80 80 Respiratory Rate 20 18 Blood Pressure 104/77 Pulse Oximetry 100 92 Oxygen Delivery Nasal Cannula Oxygen Flow Rate 4 01/22/25 07:45 01/22/25 08:00 01/22/25 08:00 Temperature Pulse Rate 87 88 Respiratory Rate 18 Blood Pressure Pulse Oximetry 95 Oxygen Delivery Nasal Cannula Oxygen Flow Rate 4 Intake/Output Intake/Output: Intake & Output 01/19/25 01/20/25 01/21/25 01/22/25 22:59 23:59 23:59 23:59 Intake Total 2470 1820 1535 300 Output Total 1000 750 Balance 1470 1070 1535 300 Meds/Results Medications: Active Medications Generic Name Dose Route Start Last Admin Trade Name Freq PRN Reason Stop Dose Admin Alprazolam 0.25 mg 01/17/25 23:35 01/21/25 18:52 Alprazolam (*Crx) 0.25 Mg Tablet PO 0.25 mg BID PRN Administration Anxiety Amiodarone HCl 200 mg 01/18/25 08:00 01/21/25 10:46 Amiodarone Hcl 200 Mg Tablet PO 200 mg DAILY@0800 BRANT Administration Apixaban 5 mg 01/17/25 23:35 01/20/25 08:42 Apixaban 5 Mg Tablet PO Not Given On Hold: 01/20/25 12:21 Q12HR BRANT Diphenhydramine HCl 25 mg 01/17/25 23:35 Diphenhydramine Hcl Cap 25 Mg Capsule PO HS PRN allergy symptoms Fluticasone Propionate 1 spray 01/17/25 23:35 Fluticasone Propionate 0.05% Na Spr 16 Gm Btl (*Bkc) NASAL DAILY PRN allergy symptoms Fluticasone/Umeclidinium/Vilanterol 1 puff 01/18/25 08:00 Fluticasone/Umeclidin/Vilanter 100-62.5-25 Mcg Ellipta INHALATION On Hold: 01/18/25 08:00 DAILYRT BRANT Comment: HOLD WHILE ON SCHEDULED DUONEB Gabapentin 300 mg 01/17/25 23:50 01/21/25 20:28 Gabapentin 300 Mg Capsule PO 300 mg HS BRANT Administration Heparin Sodium (Beef Lung) 50 units 01/20/25 09:00 01/22/25 09:30 Heparin Flush 50 Units/5 Ml Syringe IV PUSH Not Given QAM BRANT Heparin Sodium (Beef Lung) 50 units 01/19/25 15:32 Heparin Flush 50 Units/5 Ml Syringe IV PUSH PRN PRN after intermittent infusion Heparin Sodium (Beef Lung) 50 units 01/19/25 15:32 Heparin Flush 50 Units/5 Ml Syringe IV PUSH PRN PRN after blood draws Heparin Sodium (Porcine) 500 units 01/19/25 15:32 Heparin Sodium Lock Flush 500 Units/5 Ml Syringe IV PUSH PRN PRN see comments below Doxycycline Hyclate 100 mg/ 100 mls @ 100 mls/hr 01/18/25 08:00 01/22/25 10:10 Sodium Chloride IVPB 01/22/25 20:59 Infused Q12H BRANT Infusion Piperacillin Sod/Tazobactam 100 mls @ 200 mls/hr 01/19/25 12:00 01/22/25 06:56 Sod 4.5 gm/ Sodium Chloride IVPB Infused Q6H BRANT Infusion Ibuprofen 400 mg 01/17/25 23:35 01/20/25 12:21 Ibuprofen 400 Mg Tablet PO 400 mg Q6H PRN Administration fever or pain (1-3) Levalbuterol HCl 1.25 mg 01/21/25 20:00 01/22/25 07:34 Levalbuterol Neb 1.25 Mg/3 Ml INHALATION 1.25 mg Q4HRT BRANT Administration Lidocaine 2 patch 01/18/25 09:00 01/22/25 09:14 Lidocaine 5% Patch TOPICAL 2 patch DAILY BRANT Administration Metoprolol Succinate 25 mg 01/18/25 09:00 01/22/25 13:20 Metoprolol Succinate Ext Rel 25 Mg Tabcr PO Not Given QAM BRANT Miscellaneous Information 0 each 01/18/25 02:15 01/20/25 12:32 Sotorasib [Lumakras] 320 Mg Tablet- Nonformulary. Please Obtain A Home Supply If Possible. XX 02/17/25 02:14 Not Given CLARIFY BRANT Nicotine 1 patch 01/18/25 09:00 01/22/25 09:14 Nicotine (*Pbkc) 21 Mg Patch TRANSDERM 1 patch DAILY BRANT Administration Non-Formulary Medication 960 mg 01/18/25 21:00 Sotorasib [Lumakras] PO 02/17/25 20:59 QHS BRANT Oxycodone HCl 10 mg 01/17/25 23:35 01/22/25 06:04 Oxycodone Hcl (*Crx) 5 Mg Tab Ir PO 10 mg Q6H PRN Administration Pain Sacubitril/Valsartan 1 tab 01/18/25 09:00 01/21/25 20:28 Sacubitril/Valsartan 24-26 Mg Tablet PO 1 tab Q12HR BRANT Administration Sodium Chloride 1 spray 01/18/25 09:53 Saline 0.65% Lalo Soln 44 Ml Btl NASAL Q6HR PRN Congestion Sodium Chloride 10 ml 01/19/25 22:00 01/22/25 06:04 Central Line Flush IV PUSH 10 ml Q8HR BRANT Administration Vitamin A/Vitamin D 1 applic 01/18/25 02:13 Vitamin A & D Ointment 60 Gm Tube TOPICAL Q4-6H PRN skin irritation Radiology Results: ITS Impressions Chest CT 01/17/25 17:21 IMPRESSION: 1. Increase in size of now small to moderate right and very small left pleural effusions with progression of associated compressive atelectasis in the dependent lower lobes, right greater than left. 2. No significant interval change in a 4.0 x 2.3 cm lenticular mass in the posterior lingula consistent with biopsy-proven lung cancer or cervical scattered pulmonary nodules with increased FDG uptake on prior PET/CT suspicious for metastatic disease. 3. Interval increase in size of a 1.8 x 1.6 cm spiculated nodule with surrounding reticulonodular opacities in the posterior basilar segment of the right lower lobe which could represent progression of metastatic disease with lymphangitic carcinomatosis and/or focal pneumonia with surrounding endobronchial spread of disease. Chest X-Ray 01/22/25 11:30 Impression: Bilateral pneumonia. The findings are progressed compared to the previous study Labs Labs: Laboratory Results - last 24 hr 01/21/25 01/21/25 01/22/25 11:51 18:24 05:53 WBC 30.7 H RBC 4.28 Hgb 13.0 Hct 44.1 MCV 103.0 H MCH 30.4 MCHC 29.5 L RDW 14.2 Plt Count 70 L D MPV 10.3 Immature Gran % (Auto) 1.1 H Neut % (Auto) 86.6 H Lymph % (Auto) 2.5 L [place] % (Auto) 9.6 H Eos % (Auto) 0.0 Baso % (Auto) 0.2 Lymph # (Auto) 0.78 L [place] # (Auto) 3.0 H Eos # (Auto) 0.0 Baso # (Auto) 0.1 Abs Immat Gran (auto) 0.33 H Absolute Neuts (auto) 26.6 H Absolute Nucleated RBC 0.040 H Band Neutrophils % Not Reportable Nucleated RBC % 0.1 Platelet Estimate Decreased % Immature Plt Fraction 3.8 Hypochromasia Occasional Schistocytes None seen PT 17.2 H INR 1.4 APTT 31.1 Sodium 131 L Potassium 4.5 Chloride 99 Carbon Dioxide 30 Anion Gap 2 L BUN 18 H Creatinine 0.79 Estim Creat Clear Calc 58 Estimated GFR > 60 Glucose 93 Lactic Acid 1.2 Calcium 8.3 L Magnesium 1.7 1.8 Total Bilirubin 0.8 AST 241 H ALT 28 Alkaline Phosphatase 168 H Lactate Dehydrogenase Cancelled Total Protein Albumin Pleural pH Blood Type A Positive 01/22/25 01/22/25 05:53 09:37 WBC RBC Hgb Hct MCV MCH MCHC RDW Plt Count MPV Immature Gran % (Auto) Neut % (Auto) Lymph % (Auto) [place] % (Auto) Eos % (Auto) Baso % (Auto) Lymph # (Auto) [place] # (Auto) Eos # (Auto) Baso # (Auto) Abs Immat Gran (auto) Absolute Neuts (auto) Absolute Nucleated RBC Band Neutrophils % Nucleated RBC % Platelet Estimate % Immature Plt Fraction Hypochromasia Schistocytes PT INR APTT Sodium Potassium Chloride Carbon Dioxide Anion Gap BUN Creatinine Estim Creat Clear Calc Estimated GFR Glucose Lactic Acid Calcium Magnesium Total Bilirubin AST ALT Alkaline Phosphatase Lactate Dehydrogenase 679 H Total Protein 5.4 L Albumin 2.9 L Pleural pH 7.425 Blood Type Quality VTE Prophylaxis VTE prophylaxis: mechanical ordered Hospitalist MIPS Advance Care Plan I have confirmed that the patient's Advanced Care Plan is present, code status is documented, or surrogate decision maker is listed in patient medical record.: Yes
[2025-01-22 14:53] LABS: Appearance Pleural Fluid Cloudy (Clear); Color Pleural Fluid Other (Colorless)
[2025-01-22 14:57] LABS: Lymphocytes Pleural Fluid 29 %; Macrophages Pleural Fluid 14 %; Monocytes Pleural Fluid 22 %; Neutrophils Pleural Fluid 35 % (0-25)
[2025-01-22 14:58] LABS: Nucleated Cell Pleural Fluid 1138 /uL (0-1000)
--- NOTE | 2025-01-22 15:33 | PM.CNCAR ---
Assessment and Plan Assessment and plan (1) Paroxysmal atrial fibrillation with rapid ventricular response: Code(s): I48.0 - Paroxysmal atrial fibrillation Status: Acute (2) Acute hypoxic on chronic hypercapnic respiratory failure: Code(s): J96.01 - Acute respiratory failure with hypoxia; J96.12 - Chronic respiratory failure with hypercapnia Status: Acute (3) Pleural effusion: Code(s): J90 - Pleural effusion, not elsewhere classified Status: Acute (4) Lung cancer: Qualifiers: Laterality: left Lung location: unspecified part of lung Qualified Code(s): C34.92 - Malignant neoplasm of unspecified part of left bronchus or lung Code(s): C34.90 - Malignant neoplasm of unspecified part of unspecified bronchus or lung Status: Acute (5) Acute exacerbation of CHF (congestive heart failure): Qualifiers: Heart failure type: unspecified Qualified Code(s): I50.9 - Heart failure, unspecified Code(s): I50.9 - Heart failure, unspecified Status: Acute (6) Chronic anticoagulation: 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 Paroxysmal atrial flutter/fibrillation with rapid ventricular response. Patient was admitted in normal sinus rhythm. Patient was given IV Cardizem with improvement of the heart rate. Currently blood pressure is 86/54 and heart rate is 135 per minute. 2. Known history of metastatic non-small CA of the lung with metastasis to liver. Status post liver biopsy. 3. Increasing shortness of breath the with a right pleural effusion. Status post pleurocentesis. 4. Dilated cardiomyopathy with severely reduced systolic function in range of 20-25%. Left ventricle is mildly enlarged. Severe global hypokinesis noted. Patient has [id number] mitral regurgitation and right ventricular systolic dysfunction. 5. Acute on chronic systolic heart failure. 6. Hypertension likely secondary to underlying conditions. WBC count is markedly elevated. Rule out sepsis. Patient may also have poor cardiac output and forward flow causing hypotension. Baseline blood pressure is 100 to 110 systolic. Patient is also on medication that will cause hypertension like Entresto. 7. DNR status. 8. Markedly elevated WBC count with thrombocytopenia. Rule out sepsis. Recommendations: 1. Continue medical management is pertinent for this patient. Advanced lung cancer with Mets to liver on chemotherapy. Status post liver biopsy and right pleurocentesis. 2. Blood pressure remains low and therefore medications we can use amiodarone and digoxin for atrial fibrillation and flutter. Will start digitalizing this patient and also start amiodarone IV. 3. Avoid excess fluid since LV systolic function is very low and would cause acute pulmonary edema. 4. Will review medication and hold any medications I will cause hypotension. Patient received 1 L of normal saline. If blood pressure still remains below 80 patient will need to transfer to intensive care unit for Levophed. Overall prognosis is very poor for this patient and therefore comfort measures should only be done for this DNR patient. 5. Will discuss with family. History of Present Illness History of Present Illness Consult date/time: 01/22/25 15:33 Requesting physician: Venus Sheehan MD Consult reason: atrial fibrillation and congestive heart failure Reason For Visit: CHF exacerbation, PNA Narrative: Patient is a 69-year-old the female admitted on 01/17/2025 with shortness of breath. Patient has known history of lung cancer status post chemotherapy now with Mets to liver presented to the emergency room with shortness of breath. Patient has increasing and progressive shortness of breath with leg edema. No complaints of chest pain, abdominal pain, nausea vomiting or diarrhea. No complaints of fever or chills. Past medical history significant for paroxysmal atrial fibrillation. Patient is on chronic anticoagulation. Patient also has history of dilated cardiomyopathy related to drug chemotherapy, and diagnosis of non-small CA of the lung back in February of 2020 on the left side with multiple pulmonary lesions. History of hypertension. Patient was noted to have a heart rate 130 per minute after IV platelet infusion and subsequent EKG revealed atrial flutter with rapid ventricular response on 01/17/2025. Admitting EKG showed normal sinus rhythm prior to this EKG Admitting blood pressure was 81/60 and heart rate was 96 per minute. O2 saturation was 92% and patient was afebrile. Subsequently blood pressure improved with hydration. Admitting laboratory data WBC count 34.5 1000, hemoglobin 13.5 and platelets are 62,000. Sodium 129, potassium 4.4, BUN is 17 and creatinine is 1.035. Liver enzymes are elevated with AST of 241, alkaline phos 168 and LDH is 679. Admitting proBNP was 4630 and cardiac troponin was negative for CT chest on 01/17/2025 revealed small to moderate right pleural effusion and small left pleural effusion. Patient has 4 x 2.3 cm lenticular mass in the posterior lingula suspicious for metastatic disease. Patient is 1.8 x 1.6 cm peak related nodule in the right lower lobe also represented metastatic disease. Patient underwent ultrasound-guided biopsy of the hepatic mass today as well as right thoracic pleural centesis. Patient is DNR. Postprocedure patient was noted to have low blood pressure in was given up to 1 L of IV fluids with improvement of blood pressure to 80 6 mm of mercury at the present time. Patient was examined at bedside. Patient appears to be comfortable without shortness of breath or chest pain. Discussed with the family at the bedside. Review of Systems Review of Systems: Twelve point review of system was completed. Pertinent positive and negative findings per HPI. Constitutional positive for weakness, negative for fever and chills. Positive for weight loss. Head and neck is negative. Pulmonary system positive for shortness of breath Cardiovascular positive for tachycardia, shortness of breath. Negative for chest pain. Gastrointestinal system is negative for abdominal pain, nausea vomiting or diarrhea. Neurovascular is negative Skin is positive for ecchymosis Musculoskeletal positive for osteoarthritis. [facility] Past Medical History Medical History (Updated 01/21/25 @ 10:09 by Venus Sheehan MD) CHF (congestive heart failure) 08/14/2024 Summary 1. Left ventricular chamber dimension is normal. 2. Left ventricular systolic function is normal, estimated at 50-55. 3. The left ventricular diastolic function is grade I diastolic dysfunction. 4. Right ventricular systolic function is normal. 5. There is mild to moderate mitral valve regurgitation. 6. There is mild tricuspid valve regurgitation. 7. There is trivial pericardial effusion. Port-A-Cath in place Chronic anticoagulation Due to atrial fibrillation Paroxysmal atrial fibrillation 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 Hypertension Surgical History Surgical History History of insertion of tunneled central venous catheter (CVC) with port (04/2020) History of laparoscopy History of hysterectomy (1997) History of tonsillectomy (1965) History of cholecystectomy (1998) Family History Family History Grandparent Lung cancer Mother Skin cancer FH: kidney cancer Breast cancer Small bowel cancer Heart problem Congestive heart failure Pacemaker Mother No problems noted. Father Skin cancer Myocardial infarct Heart problem Pacemaker Cardiac defibrillator in place Sibling Pulmonary embolism Heart problem Coronary artery disease Sibling Arthritis Social History Social History Social History: Patient lives at home with her of 50 years. She has 1 son. 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 She used to smoke a some much as 2 packs of cigarettes per day and started smoking around age 19. She cut back significantly on her smoking after cancer diagnosis in 2020. She still smokes 1 or 2 cigarettes a day. She denies any history of alcohol use or illicit substance use. Surrogate medical decision maker: Elliott Wallis, spouse Code status: DNR/DNI Smoking packs per day: 2 Smoking cigarettes per day: 40.0 Years smoked: 50 Smoking pack-years: 100.00 Smoking status: Current every day smoker Tobacco type: cigarettes Second hand tobacco smoke exposure: No Additional smoking assessment comments: Pt has cut back on smoking, but states she still smokes 2-3 cigarettes/day. Alcohol intake: never Substance use: never Substance use type: does not use Do You Feel Safe in your Home?: Yes Lack of Transportation: No Lack of Food: Never True Current Housing: I Have Housing Concerned About Future Housing: No Difficulty Paying Gas/Electric Bills: No Difficulty Paying for Meds: No Currently Unemployed: No Education: High School Diploma/GED Difficulty w/ Childcare or Family Care: No Living arrangements: with family Spiritual care concerns: No Meds Home Medications and Allergies Home Medications ?Medication ?Instructions ?Recorded ?Confirmed ?Type alprazolam 0.25 mg tablet (Xanax) 0.25 mg PO BID PRN Anxiety 04/30/20 01/17/25 History diphenhydramine HCl 25 mg capsule 25 mg PO HS PRN allergy symptoms 10/14/23 01/17/25 History (Benadryl) gabapentin 300 mg capsule 300 mg PO HS 10/14/23 01/17/25 History apixaban 5 mg tablet (Eliquis) 5 mg PO Q12HR #60 tabs 10/18/23 01/17/25 Rx metoprolol succinate 25 mg 25 mg PO QAM #30 tabs 10/18/23 01/17/25 Rx tablet,extended release 24 hr (Toprol XL) fluticasone propionate 50 1 spray intranasal DAILY PRN 06/28/24 01/17/25 History mcg/actuation nasal allergy symptoms spray,suspension ibuprofen 200 mg tablet (Advil) 400 mg PO Q6H PRN fever or pain 06/28/24 01/17/25 History sacubitril 24 mg-valsartan 26 mg 1 tablet PO BID 06/28/24 01/17/25 History tablet (Entresto) sotorasib 320 mg tablet (Lumakras) 960 mg PO QHS 06/28/24 01/17/25 History lidocaine 5 % topical patch 2 patch topical DAILY 08/12/24 01/17/25 History amiodarone 200 mg tablet (Pacerone) 200 mg PO DAILY@0800 #30 tabs 08/16/24 01/17/25 Rx fluticasone fur. 100 mcg-umeclid 1 inh inhalation Q24H #60 ea 11/29/24 01/17/25 Rx 62.5 mcg-vilant 25 mcg inhalat.powder (Trelegy Ellipta) oxycodone 10 mg tablet 10 mg PO Q6H PRN pain #120 tabs 01/02/25 01/17/25 Rx dimethicone 1 %-zinc oxide 10 1 applic topical 4-6XD PRN skin 01/17/25 01/17/25 History %-vit A and D-aloe vera topical irritation cream (A and D Diaper Rash Cream) nicotine 21 mg/24 hr daily 1 patch transdermal DAILY 01/17/25 01/17/25 History transdermal patch Allergies Allergy/AdvReac Type Severity Reaction Status Date / Time pentazocine (From Anjali) Allergy Irritable Verified 01/18/25 06:07 [id number] Reductase AdvReac Severe Muscle Pain Verified 01/18/25 06:07 Inhibitor Vital Signs Vital Signs - 24 hr 01/21/25 16:00 01/21/25 16:00 01/21/25 16:25 Temperature 36.5 C 36.3 C L Pulse Rate 81 86 130 H Respiratory Rate 16 20 Blood Pressure 122/63 112/77 Pulse Oximetry 98 97 Oxygen Delivery Oxygen Flow Rate 01/21/25 18:30 01/21/25 19:18 01/21/25 20:00 Temperature Pulse Rate 134 H 131 H Respiratory Rate Blood Pressure Pulse Oximetry 93 Oxygen Delivery Nasal Cannula Oxygen Flow Rate 3 01/21/25 20:00 01/21/25 20:16 01/21/25 20:21 Temperature Pulse Rate 81 81 81 Respiratory Rate 20 Blood Pressure Pulse Oximetry 98 Oxygen Delivery Nasal Cannula Oxygen Flow Rate 4 01/21/25 20:25 01/21/25 21:57 01/22/25 00:00 Temperature 36.6 C Pulse Rate 83 84 78 Respiratory Rate 20 20 Blood Pressure 100/70 Pulse Oximetry 97 Oxygen Delivery Oxygen Flow Rate 01/22/25 01:57 01/22/25 01:57 01/22/25 02:10 Temperature Pulse Rate 79 79 81 Respiratory Rate 22 H 22 H Blood Pressure Pulse Oximetry 93 Oxygen Delivery Nasal Cannula Oxygen Flow Rate 3 01/22/25 04:00 01/22/25 05:51 01/22/25 07:34 Temperature 36.4 C L Pulse Rate 73 81 80 Respiratory Rate 20 Blood Pressure 104/77 Pulse Oximetry 100 92 Oxygen Delivery Nasal Cannula Oxygen Flow Rate 4 01/22/25 07:34 01/22/25 07:45 01/22/25 08:00 Temperature Pulse Rate 80 87 Respiratory Rate 18 18 Blood Pressure Pulse Oximetry 95 Oxygen Delivery Nasal Cannula Oxygen Flow Rate 4 01/22/25 08:00 01/22/25 14:08 Temperature Pulse Rate 88 135 H Respiratory Rate 20 Blood Pressure 86/54 L Pulse Oximetry 96 Oxygen Delivery Oxygen Flow Rate Exam Narrative: Patient examined at the bedside. Patient is awake alert but appears to be tired and fatigued. No shortness of breath orthopnea noted. Patient has hypertension. Patient is getting IV fluids. Head and neck examination is unremarkable. Neck is supple. There is no JVD or carotid bruit bread Thyroid is not enlarged. There is no cervical lymphadenopathy. Abdomen is soft nontender. There is no hepatosplenomegaly per Lungs reveal decreased air entry bilaterally more on right than left. Mild rhonchi no Heart sounds reveal normal S1-S2. Soft systolic murmur is noted. Extremities revealed no pedal edema at the present time. Significant ecchymosis noted bilaterally in extremities. Neurological examination is intact Results Labs and Meds 01/22/25 05:53 01/22/25 05:53 Lab results: Cardiac Enzymes 01/22/25 01/22/25 Range/Units 05:53 05:53 AST 241 H (14-36) U/L Lactate Dehydrogenase Cancelled 679 H Coagulation 01/22/25 Range/Units 05:53 PT 17.2 H (11.1-14.7) Seconds APTT 31.1 (22.3-36.8) Seconds CBC 01/22/25 Range/Units 05:53 WBC 30.7 H (4.5-10.0) K/mm3 RBC 4.28 (4.2-5.4) M/mm3 Hgb 13.0 (12.0-15.0) g/dL Hct 44.1 (37.0-47.0) % Plt Count 70 L D (150-375) k/mm3 Lymph # (Auto) 0.78 L (0.9-3.2) K/mm3 Mason # (Auto) 3.0 H (0.1-0.6) K/mm3 Eos # (Auto) 0.0 (0-0.3) K/mm3 Baso # (Auto) 0.1 (0.0-0.1) K/mm3 Comprehensive Metabolic Panel 01/22/25 Range/Units 05:53 Sodium 131 L (137-145) mmol/L Potassium 4.5 (3.4-5.0) mmol/L Chloride 99 (98-107) mmol/L Carbon Dioxide 30 (22-30) mmol/L BUN 18 H (7-17) mg/dL Creatinine 0.79 (0.7-1.0) mg/dL Glucose 93 (65-110) mg/dL Calcium 8.3 L (8.4-10.2) mg/dL AST 241 H (14-36) U/L ALT 28 (6-35) U/L Alkaline Phosphatase 168 H (38-126) U/L Total Protein 5.4 L (6.3-8.2) g/dL Albumin 2.9 L (3.5-5.1) g/dL Intake and Output 01/21/25 01/22/25 01/22/25 23:59 07:59 15:59 Intake Total 595 200 340 Output Total 1100 Balance 595 200 -760 Intake: IV 200 200 100 Doxycycline IV 100 mg In Sodium 100 100 Chloride 0.9% IV 100 ml @ 100 mls/hr IVPB Q12H [facility] Rx#: [id number] Piperacillin/Tazobactam Sod 4.5 100 200 gm In Sodium Chloride 0.9% IV 100 ml @ 200 mls/hr IVPB Q6H [facility] Rx#:[id number] Intake (Blood Product) Amt 275 Pheresis Platelets 7d (Bag2) 275 Unit [id number] Oral 120 0 240 Output: Pleural Fluid 1100 Other: # Unmeasured Voids 1 2 Patient Weight 01/22/25 23:59 Weight 72.5 kg
[2025-01-22] MEDS: KETOROLAC 30 MG/ML VIAL (*BKC) IV PUSH (18:38)
--- NOTE | 2025-01-22 18:43 | PM.CNPUL ---
Assessment and Plan Assessment and plan (1) Metastatic non-small cell lung cancer: Code(s): C34.90 - Malignant neoplasm of unspecified part of unspecified bronchus or lung Status: Acute Assessment and Plan: Her initial diagnosis was made from a pulmonary nodule on the left side 2019, PET scan on 11/26/2024 shows improvement in the lingula and left upper lobe nodules. There is increased uptake in the right hilar and infrahilar lymph nodes which could be reactive or metastatic and she had a new left hepatic lobe mass light up which was consistent with metastatic disease, this was biopsied today. She also has compression fractures in T9 and T10. (2) COPD (chronic obstructive pulmonary disease): Qualifiers: COPD type: emphysema Emphysema type: unspecified Qualified Code(s): J43.9 - Emphysema, unspecified Code(s): J44.9 - Chronic obstructive pulmonary disease, unspecified Status: Acute Assessment and Plan: Long standing COPD, has been on Rx for COPD this admission, also on Trelegy at home. (3) Pleural effusion: Code(s): J90 - Pleural effusion, not elsewhere classified Status: Acute Assessment and Plan: Fluid results from right thoracentesis today : reddish fluid, pH 7.45; 20,000 rbc - high. nucleated cells 1138- high. Gram stain- pleural fluid Gram stain showed MANY wbc, No organisms. I interpret this fluid to have a normal pH, high RBCs, elevated white blood cells without lymphocyte predominance. The Gram stain shows many white blood cells no organisms. This suggests that the fluid may be infected due to the white cells but without organisms probably not empyema. The normal pH suggests no empyema. This may be a overlap of infected pleural fluid from a pneumonia and malignant pleural effusion represented with the elevated RBCs. The RBCs may also reflect overall low platelet count and she has evidence of bruising over lower legs and her arms. (4) Shortness of Breath: Code(s): R06.02 - Shortness of breath Status: Acute Assessment and Plan: Worse with exertion, multifactorial, COPD, smoking, progressive bilateral lung cancer, pleural effusion. (5) Acute hypoxic respiratory failure: Code(s): J96.01 - Acute respiratory failure with hypoxia Status: Acute Assessment and Plan: She is now on 3 L/minute, not a high amount of O2. She had 1100 mL bloody effusion tapped from right lung today, did not help with oxygenation. Did not help to improve BP which is still low. Plan I discussed with her daughter in law Shanna; she has progressive lung cancer, 2020 on Left, now on both sides, bloody pleural fluid 20,000 rbc with moderate wbc on Gram stain, consistent with malignant effusion on the right. She may have many rbc from low platelets, and she has bruising all over her legs and arms. Reviewed images, CXR today, labs, low plts up to 70K after 2 units plts, high WBC, She is on Zosyn which will cover wbc in the pleural fluid; she has no micro-organisms, however has extremely high wbc, may have mix of malignant effusion and infected pleural fluid. She does not have an empyema. 1. Add PEP valve to assist with secretions clearance. She has IS, and a Cornet valve can add benefit to clear mucus from the airways. 2. I sent an order for the pleural fluid from today to be sent for cytology. 3. Tobacco cessation is essential, she smoked up until admission, complicating every aspect of her care. Her daughter in law told me that she has a documented Do Not Resuscitate plan in place, does not want to be on a ventilator. With response to management, she may improve, and we should plan to re-emphasize the importance of not smoking, at all. History of Present Illness History of Present Illness Consult date: 01/23/25 Chief complaint: CHF exacerbation, PNA Narrative: pt is seen Jan 22, 2025 at 18:45 Room 316 NEW: Yessenia Wallis is a 69-year-old woman who is my clinic patient, was seen 12/17/24 as a new patient after have pneumonia with hospital admission August 2024. Adenocarcinoma of the left lung diagnosed in 2019 continues to smoke, has shortness of breath. Treatment included alpha 1 swab, PFT; 6MW; LION on room air; she has poor sleep, sleeps in 2-3 hour increments, drinks coffee when waking at night, takes 2 naps in the day. She received Trelegy samples and tobacco cessation information. I sent albuterol to her pharmacy, sleep hygiene instructions, encouraged vaccination including COVID booster encouraged her to get an oximeter. I calld her with her 12/27/2024 overnight oximetry on room air = which showed 2 hours 59 minutes of recording time, highest saturation 96%, lowest saturation 74%, basal saturation 84.6%. She spent 1 hour 25 minutes consecutively below 88%. Awake saturation 90%. Oxygen desaturation index is 12. She qualifies for oxygen per Medicare guidelines, coverage guidelines for Group 1. I called her to ask if she wanted to pursue [id number] due to her VIDAL of 12, or nocturnal O2 as she qualified for that. She wants to wait a few days, she is going to get test results back tomorrow, and wants to think this over, not commit to more testing or oxygen right now. She called the office Jan 20 saying that she had been admitted to the hospital. Today Jan 22, she had a liver biopsy and thoracentesis with 1100 ml removed from the Right side, reddish fluid. Last night she developed paroxysmal atrial fibrillation, hypotension, cardiology saw our, determined he had exacerbation of congestive heart failure. pleural fluid: 7.45, Gram stain moderate wbc, no organisms, elevated RBCs 20,000, elevated nuclear cells 1138, 35% neutrophils, 29% lymphocytes, 22% myelocytes, 14% pleural macrophages. White blood cell count today is 30.7, on admission was 35,000, his decreased and then started to increase again. She is not having a fever. She has had atrial flutter today with rates in the 130, blood pressure too low to give metoprolol. Blood pressure 82/60, heart rate 131, no fever. She has had a L of crystalloid *01/17/[address]; Mild emphysema. Increase in size of small to moderate-sized posterior layering right pleural effusion and very small posterior layering left pleural effusion. There is associated dependent atelectasis in the bilateral lower lobes, right greater than left. Again seen is an approximately 4.0 x 2.3 cm lenticular mass in the lingula along the major fissure corresponding to biopsy-proven lung cancer. This appears without significant interval change since CT dated 11/16/2024. Also unchanged is a 1.7 x 1.4 cm spiculated paramediastinal nodule in the left upper lobe. No significant change in a 7 mm nodule at the lingula. Is also demonstrated increased FDG uptake on intervening PET/CT dated 11/19/2024 consistent with metastatic disease. There has been interval increase in size of a previously 12 x 9 mm, currently 1.8 x 1.6 mm spiculated mass with some progression in the surrounding reticulonodular opacities at the posterior basilar left lower lobe which could represent progression of metastatic disease with some lymphangitic carcinomatosis versus pneumonia with endobronchial spread. There are a few additional unchanged subcentimeter nodules in the lateral basilar left lower lobe the largest measuring 8 mm which without increased FDG uptake on PET/CT and more likely to represent sequela of old granulomatous disease. Also consistent with old granulomatous disease. Calcite nodules in the right middle lobe and calcified right hilar lymph nodes. Heart size is normal. Moderate-sized pericardial effusion. Thoracic aorta is normal in caliber. No evident pathologically enlarged thoracic lymph nodes although assessment is more limited on noncontrast imaging. Right internal jugular central venous port catheter with distal tip at the caudal superior vena cava. Visualized upper abdomen is unremarkable on noncontrast imaging. Chronic T9 and T12 compression fracture with change of prior vertebroplasty. IMPRESSION: 1. Increase in size of now small to moderate right and very small left pleural effusions with progression of associated compressive atelectasis in the dependent lower lobes, right greater than left. 2. No significant interval change in a 4.0 x 2.3 cm lenticular mass in the posterior lingula consistent with biopsy-proven lung cancer or cervical scattered pulmonary nodules with increased FDG uptake on prior PET/CT suspicious for metastatic disease. 3. Interval increase in size of a 1.8 x 1.6 cm spiculated nodule with surrounding reticulonodular opacities in the posterior basilar segment of the right lower lobe which could represent progression of metastatic disease with lymphangitic carcinomatosis and/or focal pneumonia with surrounding endobronchial spread of disease. * 01/17/2025 CXR Bilateral pneumonia. Left lung nodule. CT suggested to assess. The lung nodule appears increased in size compared to previous CT. History 12/17/2024, new pulmonary office consult; She has non-small cell lung cancer diagnosed Jan 2020, status post chemoradiation and immunotherapy. She had asymptomatic COVID which delayed starting treatment for cancer. Has not had surgery. Her oncologist is Dr Lewis. She had a PET Scan 11/26/24, has 3.7 x 2.6 cm mass in lingula and 1.7 x 1.2 cm LILLIE nodule, both have mild uptake, smaller than prior scan in September 2023, however had new 2.5 cm liver nodule, biopsied, gets results Oct 2. Treatment; no longer on Keytruda, stopped 09/05/2020 because her AST increased, concerned that Keytruda was increasing AST (Lab anomaly), however the test measuring AST was faulty, caused the AST to appear falsely elevated. She had radiation to RLL mass 04/01/2022 COPD : CAT 15/40, moderate symptoms; coughs most days, has some sputum, not a huge amount, no chest tightness. Does not sleep well, but not due to poorly controlled COPD. She takes care of 4 tomato plants and german, sits outside and drinks lemonade. She does chores including laundry, cooking; does the other stuff including groceries, dishes. Work: not worked for years. Retired for years. 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 She has no rescue medication. She was sick in August, started Trelegy which seems to help. Right now, she can afford it, has met her catastrophic tier on insurance, gets medications for free until the end of the year. Her Entresto and Eliquis are > $2 k/minth. Tobacco: started age [age] years old, max 2 ppd, Last smoked this am. She smokes daily, a handful, 5-6 cigarettes a day. PMH: hypertension; peripheral neuropathy; COPD; anxiety. Low EF, improved on the latest echo, now 50-55%. Sees Dr Peraza. On amiodarone and staying in [place] Was on it last year, off then restarted, Social: gave once. Lives with her . Sleep: Bed time is 10:30-11 pm, fast falling asleep, 5 min, only sleeps 2-3 hours, wakes up, cannot return to sleep, makes coffee, may go to sleep a few hours later, takes a nap or two in the day. Urinates after waking up, but does not feel that this wakes her. May nap before getting ready for bed. She wakes up and then goes to bed. This is not ideal, taking from her sleep drive, and may contribute to short amount of sleep at night. normally, she does not have dreams that she can recall. . Legs: takes gabapentin for legs for neuropathy. This keeps her from kicking at night. DATA * 2019 ; Biopsy LILLIE mass, KRAS G12C mutation. * 11/26/24 PET; IMPRESSION: 1. Mild increased uptake associated with a 3.7 x 2.6 m mass at the lingula and 1.7 x 1.2 cm left upper lobe nodule the former corresponds to the biopsied mass demonstrating primary bronchogenic carcinoma. Both lesions have decreased in size since the prior PET/CT 10/12/2023 consistent with response to treatment. 2. Increase in size of a previously 4 mm, currently 7 mm lingular nodule with minimal increased FDG uptake which could be either metastatic or infectious/inflammatory in etiology. 3. Increased FDG uptake such with mild right hilar and infrahilar lymphadenopathy which similarly could be reactive or metastatic. 4. New 2.5 cm FDG avid mass in the left hepatic lobe consistent with metastatic disease. 5. Increased uptake at the T9 and T10 vertebral bodies likely related to compression fractures with recent vertebral plasties at both levels. Additional asymmetric increased uptake at the right transverse process of T9 is without radiologic correlate and could be either metastatic or response to the prior vertebroplasty. * 08/14/2024 echo: Left ventricular chamber dimension is normal. 2. Left ventricular systolic function is normal, estimated at 50-55. 3. The left ventricular diastolic function is grade I diastolic dysfunction. 4. Right ventricular systolic function is normal. 5. There is mild to moderate mitral valve regurgitation. 6. There is mild tricuspid valve regurgitation. 7. There is trivial pericardial effusion. * 11/16/2024; LE Dopplers; Impression: Negative for DVT. Review of Systems Review of Systems: All systems reviewed & are unremarkable except as noted in HPI and below PMFSH Past Medical History Medical History CHF (congestive heart failure) 08/14/2024 Summary 1. Left ventricular chamber dimension is normal. 2. Left ventricular systolic function is normal, estimated at 50-55. 3. The left ventricular diastolic function is grade I diastolic dysfunction. 4. Right ventricular systolic function is normal. 5. There is mild to moderate mitral valve regurgitation. 6. There is mild tricuspid valve regurgitation. 7. There is trivial pericardial effusion. Port-A-Cath in place Chronic anticoagulation Due to atrial fibrillation Paroxysmal atrial fibrillation 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 Hypertension Surgical History Surgical History History of insertion of tunneled central venous catheter (CVC) with port (04/2020) History of laparoscopy History of hysterectomy (1997) History of tonsillectomy (1965) History of cholecystectomy (1998) Family History Family History Grandparent Lung cancer Mother Skin cancer FH: kidney cancer Breast cancer Small bowel cancer Heart problem Congestive heart failure Pacemaker Mother No problems noted. Father Skin cancer Myocardial infarct Heart problem Pacemaker Cardiac defibrillator in place Sibling Pulmonary embolism Heart problem Coronary artery disease Sibling Arthritis Social History Social History Social History: Patient lives at home with her of 50 years. She has 1 son. 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 She used to smoke a some much as 2 packs of cigarettes per day and started smoking around age 19. She cut back significantly on her smoking after cancer diagnosis in 2020. She still smokes 1 or 2 cigarettes a day. She denies any history of alcohol use or illicit substance use. Surrogate medical decision maker: Elliott Wallis, spouse Code status: DNR/DNI Smoking packs per day: 2 Smoking cigarettes per day: 40.0 Years smoked: 50 Smoking pack-years: 100.00 Smoking status: Current every day smoker Tobacco type: cigarettes Second hand tobacco smoke exposure: No Additional smoking assessment comments: Pt has cut back on smoking, but states she still smokes 2-3 cigarettes/day. Alcohol intake: never Substance use: never Substance use type: does not use Do You Feel Safe in your Home?: Yes Lack of Transportation: No Lack of Food: Never True Current Housing: I Have Housing Concerned About Future Housing: No Difficulty Paying Gas/Electric Bills: No Difficulty Paying for Meds: No Currently Unemployed: No Education: High School Diploma/GED Difficulty w/ Childcare or Family Care: No Living arrangements: with family Spiritual care concerns: No Meds Home Medications and Allergies Home Medications ?Medication ?Instructions ?Recorded ?Confirmed ?Type alprazolam 0.25 mg tablet (Xanax) 0.25 mg PO BID PRN Anxiety 04/30/20 01/17/25 History diphenhydramine HCl 25 mg capsule 25 mg PO HS PRN allergy symptoms 10/14/23 01/17/25 History (Benadryl) gabapentin 300 mg capsule 300 mg PO HS 10/14/23 01/17/25 History apixaban 5 mg tablet (Eliquis) 5 mg PO Q12HR #60 tabs 10/18/23 01/17/25 Rx metoprolol succinate 25 mg 25 mg PO QAM #30 tabs 10/18/23 01/17/25 Rx tablet,extended release 24 hr (Toprol XL) fluticasone propionate 50 1 spray intranasal DAILY PRN 06/28/24 01/17/25 History mcg/actuation nasal allergy symptoms spray,suspension ibuprofen 200 mg tablet (Advil) 400 mg PO Q6H PRN fever or pain 06/28/24 01/17/25 History sacubitril 24 mg-valsartan 26 mg 1 tablet PO BID 06/28/24 01/17/25 History tablet (Entresto) sotorasib 320 mg tablet (Lumakras) 960 mg PO QHS 06/28/24 01/17/25 History lidocaine 5 % topical patch 2 patch topical DAILY 08/12/24 01/17/25 History amiodarone 200 mg tablet (Pacerone) 200 mg PO DAILY@0800 #30 tabs 08/16/24 01/17/25 Rx fluticasone fur. 100 mcg-umeclid 1 inh inhalation Q24H #60 ea 11/29/24 01/17/25 Rx 62.5 mcg-vilant 25 mcg inhalat.powder (Trelegy Ellipta) oxycodone 10 mg tablet 10 mg PO Q6H PRN pain #120 tabs 01/02/25 01/17/25 Rx dimethicone 1 %-zinc oxide 10 1 applic topical 4-6XD PRN skin 01/17/25 01/17/25 History %-vit A and D-aloe vera topical irritation cream (A and D Diaper Rash Cream) nicotine 21 mg/24 hr daily 1 patch transdermal DAILY 01/17/25 01/17/25 History transdermal patch Allergies Allergy/AdvReac Type Severity Reaction Status Date / Time pentazocine (From Anjali) Allergy Irritable Verified 01/18/25 06:07 [id number] Reductase AdvReac Severe Muscle Pain Verified 01/18/25 06:07 Inhibitor Vital Signs Vital Signs - 24 hr 01/21/25 19:18 01/21/25 20:00 01/21/25 20:00 Temperature Pulse Rate 131 H 81 Respiratory Rate Blood Pressure Pulse Oximetry 93 Oxygen Delivery Nasal Cannula Oxygen Flow Rate 3 01/21/25 20:16 01/21/25 20:21 01/21/25 20:25 Temperature Pulse Rate 81 81 83 Respiratory Rate 20 20 Blood Pressure Pulse Oximetry 98 Oxygen Delivery Nasal Cannula Oxygen Flow Rate 4 01/21/25 21:57 01/22/25 00:00 01/22/25 01:57 Temperature 36.6 C Pulse Rate 84 78 79 Respiratory Rate 20 22 H Blood Pressure 100/70 Pulse Oximetry 97 Oxygen Delivery Oxygen Flow Rate 01/22/25 01:57 01/22/25 02:10 01/22/25 04:00 Temperature Pulse Rate 79 81 73 Respiratory Rate 22 H Blood Pressure Pulse Oximetry 93 Oxygen Delivery Nasal Cannula Oxygen Flow Rate 3 01/22/25 05:51 01/22/25 07:34 01/22/25 07:34 Temperature 36.4 C L Pulse Rate 81 80 80 Respiratory Rate 20 18 Blood Pressure 104/77 Pulse Oximetry 100 92 Oxygen Delivery Nasal Cannula Oxygen Flow Rate 4 01/22/25 07:45 01/22/25 08:00 01/22/25 08:00 Temperature Pulse Rate 87 88 Respiratory Rate 18 Blood Pressure Pulse Oximetry 95 Oxygen Delivery Nasal Cannula Oxygen Flow Rate 4 01/22/25 11:55 01/22/25 12:00 01/22/25 12:10 Temperature Pulse Rate 127 H 137 H 136 H Respiratory Rate 18 18 Blood Pressure Pulse Oximetry Oxygen Delivery Oxygen Flow Rate 01/22/25 14:08 01/22/25 15:35 01/22/25 15:35 Temperature Pulse Rate 135 H 132 H 132 H Respiratory Rate 20 18 18 Blood Pressure 86/54 L Pulse Oximetry 96 88 L Oxygen Delivery Nasal Cannula Oxygen Flow Rate 1 01/22/25 15:45 01/22/25 16:00 01/22/25 17:50 Temperature Pulse Rate 127 H 134 H Respiratory Rate 18 20 Blood Pressure 70/52 L 82/60 L Pulse Oximetry 98 Oxygen Delivery Oxygen Flow Rate Exam Narrative: GEN: Alert, oriented, not in distress. HEENT: pupils are equal, EOMI, symmetrical face; oral membranes moist, Mallampati II airway NECK: Trachea is midline CHEST: Equal air entry, symmetric excursion, clear breath sounds CV: Regular S1S2 no m/g/r ABD : (+) bowel sounds Extremities : no clubbing, cyanosis, or edema. No calf tenderness. PSYCH: normal thought and speech, gait is normal. Results Laboratory Findings 01/23/25 07:03 01/23/25 07:03 ABG, PT/INR, D-dimer: PT/INR, D-dimer PT 17.2 Seconds (11.1-14.7) H 01/22/25 05:53 INR 1.4 01/22/25 05:53 Abnormal lab findings: Abnormal Labs 01/17/25 01/18/25 01/19/25 16:11 04:24 03:57 WBC 34.5 H 23.6 H 27.1 H RBC 3.64 L 3.96 L Hgb 11.1 L MCV 101.6 H 102.2 H MCHC 30.7 L 29.8 L 31.3 L Plt Count 62 L D 44 L 43 L MPV 10.5 H Immature Gran % (Auto) 0.6 H Neut % (Auto) 81.2 H Lymph % (Auto) 5.9 L [place] % (Auto) 12.2 H Baso % (Auto) 0.1 L Lymph # (Auto) [place] # (Auto) 2.9 H Abs Immat Gran (auto) 0.14 H Absolute Neuts (auto) 19.2 H Absolute Nucleated RBC 0.060 H Neutrophils % (Manual) 84 H 83 H Band Neutrophils % 8 H 7 H Lymphocytes % (Manual) 4.0 L 5.0 L Monocytes % (Manual) Nucleated RBC % 0.3 H Abs Neuts (Manual) 31.74 H 24.39 H Abs Monocytes (Manual) 1.38 H 1.35 H PT Sodium 129 L 130 L 130 L Chloride 97 L Anion Gap 3 L 1 L 3 L BUN Creatinine 1.03 H Estimated GFR 53 L Glucose 111 H Calcium 8.1 L 7.8 L 7.9 L AST 251 H 221 H Alkaline Phosphatase 162 H 136 H Lactate Dehydrogenase NT-Pro-B Natriuret Pep 4630 H Total Protein 5.6 L 5.2 L Albumin 3.1 L 2.8 L Pleural RBC Pleural Nuc Cells Pleural Neutrophils 01/20/25 01/21/25 01/22/25 06:18 05:53 05:53 WBC 25.3 H 25.6 H 30.7 H RBC 3.99 L 4.08 L Hgb MCV 101.5 H 102.5 H 103.0 H MCHC 30.4 L 29.9 L 29.5 L Plt Count 36 L 36 L 70 L D MPV 10.5 H Immature Gran % (Auto) 1.1 H Neut % (Auto) 86.6 H Lymph % (Auto) 2.5 L [place] % (Auto) 9.6 H Baso % (Auto) Lymph # (Auto) 0.78 L [place] # (Auto) 3.0 H Abs Immat Gran (auto) 0.33 H Absolute Neuts (auto) 26.6 H Absolute Nucleated RBC 0.040 H Neutrophils % (Manual) Band Neutrophils % 13 H Lymphocytes % (Manual) 5 L Monocytes % (Manual) 10 H Nucleated RBC % Abs Neuts (Manual) 21.76 H Abs Monocytes (Manual) 2.56 H PT 17.2 H Sodium 130 L 131 L 131 L Chloride Anion Gap 1 L 2 L 2 L BUN 18 H Creatinine Estimated GFR Glucose Calcium 7.9 L 8.0 L 8.3 L AST 223 H 241 H Alkaline Phosphatase 148 H 168 H Lactate Dehydrogenase 679 H NT-Pro-B Natriuret Pep Total Protein 5.3 L 5.4 L Albumin 2.8 L 2.9 L Pleural RBC Pleural Nuc Cells Pleural Neutrophils 01/22/25 11:10 WBC RBC Hgb MCV MCHC Plt Count MPV Immature Gran % (Auto) Neut % (Auto) Lymph % (Auto) [place] % (Auto) Baso % (Auto) Lymph # (Auto) [place] # (Auto) Abs Immat Gran (auto) Absolute Neuts (auto) Absolute Nucleated RBC Neutrophils % (Manual) Band Neutrophils % Lymphocytes % (Manual) Monocytes % (Manual) Nucleated RBC % Abs Neuts (Manual) Abs Monocytes (Manual) PT Sodium Chloride Anion Gap BUN Creatinine Estimated GFR Glucose Calcium AST Alkaline Phosphatase Lactate Dehydrogenase NT-Pro-B Natriuret Pep Total Protein Albumin Pleural RBC 26941 H Pleural Nuc Cells 1138 H Pleural Neutrophils 35 H
[2025-01-22] MEDS: DIGOXIN INJ 250 MCG/ML 2 ML AMP (*BKC) IV PUSH (18:50)
[2025-01-22] MEDS: PIPERACILLIN/TAZOBACTAM SOD 4.5 GM in SODIUM CHLORIDE 0.9% IV 100 ML 200 ML IVPB (19:08)
[2025-01-22] MEDS: ALBUMIN HUMAN 5% 250 ML IV CONT (19:36)
[2025-01-22 20:20] LABS: Procalcitonin 0.1 ng/mL
--- NOTE | 2025-01-22 20:35 | PC.NURSE ---
pt transfweresdf rom rm [id number] in be placed on monitor o2 NC 3lpm
[2025-01-22] MEDS: ALPRAZolam (*CRX) 0.25 MG TABLET PO (22:18)
[2025-01-22] MEDS: IBUPROFEN 400 MG TABLET PO (22:20)
[2025-01-22] MEDS: GABAPENTIN 300 MG CAPSULE PO (22:39)
[2025-01-23] VITALS (33 sets, daily range): BP systolic 62–111; BP diastolic 27–80; PULSE 75–135; RESP 16–33; TEMP 36.4–37.6; O2SAT 89–100
[2025-01-23] MEDS: KETOROLAC 30 MG/ML VIAL (*BKC) IV PUSH ×2 (00:28→10:20)
[2025-01-23] MEDS: DIGOXIN INJ 250 MCG/ML 2 ML AMP (*BKC) IV PUSH ×2 (00:29→07:35)
[2025-01-23] MEDS: PIPERACILLIN/TAZOBACTAM SOD 4.5 GM in SODIUM CHLORIDE 0.9% IV 100 ML IVPB ×3 (00:29→11:32)
[2025-01-23] MEDS: PHENYLEPHRINE HCL INJ 50 MG in SODIUM CHLORIDE 0.9% IV 245 ML 12 ML IV CONT (02:32)
[2025-01-23 07:12] LABS: Hematocrit 45.0 % (37.0-47.0); Hemoglobin 13.2 g/dL (12.0-15.0); Immature Platelet Fraction Pct 4.9 % (0.9-11.2); Mean Corpuscular HGB Conc 29.3 g/dl (32-36); Mean Corpuscular Hemoglobin 30.6 pg (26-34); Mean Corpuscular Volume 104.4 fl (80-100); Platelet Count Result 61 k/mm3 (150-375); Red Blood Count 4.31 M/mm3 (4.2-5.4)
[2025-01-23 07:17] LABS: White Blood Count 60.0 K/mm3 (4.5-10.0)
--- NOTE | 2025-01-23 07:27 | P.PNCROSS_ITS ---
Event Note Event Note Event Note: This is a 69-year-old female patient who has a history of metastatic non small cell lung cancer and COPD. The patient became tachypneic this a.m.. The patient was placed on a high-flow oxygen due to shortness of breath. Chest x- ray and ABGs were ordered. Lasix and Solu-Medrol were ordered as well as Valium. Patient appears to be feeling better after receiving the Valium.
[2025-01-23 07:33] LABS: Alanine Aminotransferase 30 U/L (6-35); Albumin Level 3.0 g/dL (3.5-5.1); Alkaline Phosphatase 180 U/L (38-126); Anion Gap 5 mmol/L (4-12); Aspartate Amino Transferase 196 U/L (14-36); Bilirubin,Total 1.0 mg/dL (0.2-1.3); Blood Urea Nitrogen 25 mg/dL (7-17); Calcium 7.9 mg/dL (8.4-10.2); Carbon Dioxide 24 mmol/L (22-30); Chloride 102 mmol/L (98-107); Estimated CRCL calculation 50 ml/min; Estimated Glomerular Filt Rate 60; Glucose 124 mg/dL (65-110); Magnesium 1.8 mg/dL (1.6-2.3); Potassium 4.3 mmol/L (3.4-5.0); Sodium 131 mmol/L (137-145); Total Protein 5.2 g/dL (6.3-8.2)
[2025-01-23] MEDS: FUROSEMIDE INJ 40 MG/4 ML VIAL 20 MG IV PUSH (07:37)
[2025-01-23] MEDS: NICOTINE (*PBKC) 21 MG PATCH 1 PATCH TRANSDERM (09:09)
[2025-01-23] MEDS: AMIODARONE HCL 200 MG TABLET PO (09:09)
[2025-01-23] MEDS: METOPROLOL SUCCINATE EXT REL 25 MG TABCR PO (09:09)
[2025-01-23] MEDS: LIDOCAINE 5% PATCH 2 PATCH TOPICAL (09:10)
[2025-01-23 09:30] LABS: Alveolar/Arterial O2 Gradient 556.2 mmHg; Fractional Inspired Oxygen 100 %; HCO3 ABG 22.6 mEq/l (22.0-26.0); Oxygen Content ABG 20.1 %vol (16.0-22.0); Oxygen Saturation ABG 96.8 % (95.0-100.0); PCO2 ABG 53.3 mmHg (35.0-45.0); PO2 ABG 103.5 mmHg (80.0-100.0); PO2 FiO2 Ratio Arterial Blood 1.03 %
[2025-01-23] MEDS: PHENYLEPHRINE HCL INJ 50 MG in SODIUM CHLORIDE 0.9% IV 245 ML 37.5 ML IV CONT (09:30)
[2025-01-23 09:31] LABS: Liters per Minute 15.0 LPM; Site Drawn LEFT BRACHIAL
[2025-01-23] MEDS: PHENYLEPHRINE HCL INJ 50 MG in SODIUM CHLORIDE 0.9% IV 245 ML 45 ML IV CONT (11:31)
--- NOTE | 2025-01-23 11:34 | WPDCNINT ---
Assessment and Plan Assessment and plan (1) Acute hypoxic on chronic hypercapnic respiratory failure: Code(s): J96.01 - Acute respiratory failure with hypoxia; J96.12 - Chronic respiratory failure with hypercapnia Status: Acute Assessment and Plan: Patient presented with shortness of breath and was diagnosed with pneumonia, atelectasis and large pleural effusion 11 status post thoracentesis on the right and drainage of 1100 mL pleural fluid. Some of the studies are pending but overall it does not appear empyema but may be accidentally the parapneumonic effusion or malignancy Procalcitonin and lactic acid level are low patient is afebrile but she has elevated WBC count Overnight patient's hypoxia worsened likely secondary to combination of pulmonary edema from the fluid she received an AFib with RVR Currently on Venti mask. She does not want to wear Airvo or BiPAP. She is alert oriented x3. She is DNR DNI Patient given Lasix 1 dose of early this morning. I will repeat another does this afternoon Family at this time is having conversation regarding palliative care and hospice Currently on Zosyn for antibiotic coverage for pneumonia (2) Paroxysmal atrial fibrillation with rapid ventricular response: Code(s): I48.0 - Paroxysmal atrial fibrillation Status: Acute Assessment and Plan: AFib with RVR. Patient not tolerating beta-jessica calcium jessica due to hypotension. Currently on amiodarone p.o. and digoxin IV as per Cardiology Not on anticoagulation due to thrombocytopenia On Osiel-Synephrine infusion for blood pressure support (3) Chronic anticoagulation: Code(s): Z79.01 - intermediate (current) use of anticoagulants Status: Acute Assessment and Plan: Anticoagulation on hold due to significant thrombocytopenia (4) Metastatic non-small cell lung cancer: Code(s): C34.90 - Malignant neoplasm of unspecified part of unspecified bronchus or lung Status: Acute Assessment and Plan: Metastatic non-small cell lung cancer Status post thoracentesis for pleural effusion Patient being followed by Oncology Overall prognosis poor (5) COPD (chronic obstructive pulmonary disease): Qualifiers: COPD type: emphysema Emphysema type: unspecified Qualified Code(s): J43.9 - Emphysema, unspecified Code(s): J44.9 - Chronic obstructive pulmonary disease, unspecified Status: Acute (6) CAP (community acquired pneumonia): Qualifiers: Laterality: left Lung location: unspecified part of lung Qualified Code(s): J18.9 - Pneumonia, unspecified organism Code(s): J18.9 - Pneumonia, unspecified organism Status: Acute (7) Pleural effusion: Code(s): J90 - Pleural effusion, not elsewhere classified Status: Acute (8) Pulmonary edema: Code(s): J81.1 - Chronic pulmonary edema Status: Acute (9) Shock: Code(s): R57.9 - Shock, unspecified Status: Acute Assessment and Plan: Patient hypotensive likely cardiogenic and secondary to medications. Questionable component of sepsis although her lactic acid and procalcitonin level was low She is volume overloaded and is getting diuretics Continue Osiel-Synephrine for blood pressure support Hold further volume Hold Entresto Plan DVT prophylaxis -SCD Stress ulcer prophylaxis - Nutrition -NPO at this time Code Status -DNR DNI. I met with patient patient, patient's and patient's daughter we went over patient's current status and current treatment plan. We also briefly discussed goals of care. They have also spoken to the husbandry technician and oncologist. They are currently discussing options of hospice. I am going to meet with them again later today. Total Critical Care Time - 35 minutes Due to a high probability of clinically significant, life threatening deterioration, the patient required my highest level of preparedness to intervene emergently and I personally spent this critical care time directly and personally managing the patient. This critical care time included obtaining a history; examining the patient; pulse oximetry; ordering and review of studies; arranging urgent treatment with development of a management plan; evaluation of patient's response to treatment; frequent reassessment; and discussions with other providers. It was exclusive of separately billable procedures and treating other patients and teaching time. Please see Assessment and Plan section and the rest of the note for further information on patient assessment and treatment [employer] Consult Note Consult date: 01/23/25 Reason for consult: Hypotension HPI: Yessenia Wallis is a 69 year old female with past medical history of metastatic [id number] lung cancer, cardiomyopathy and congestive heart failure, proximal AFib on and off anticoagulation, COPD, hypertension was admitted on 01 18 with chief complaint of shortness of breath. Imaging at that time showed bilateral pleural effusion right bigger than left and she also had consolidation suspected compressive atelectasis versus pneumonia. She was started on antibiotics. She had a right sided thoracentesis on 01/22 and 1100 mL fluid was removed. Fluid at this time although has some studies pending does not appear to be empyema. She also had a liver biopsy. During this hospitalization she was also evaluated by Oncology and Cardiology for AFib. She was started on digoxin IV. She is also on p.o. amiodarone. Patient was also evaluated by Pulmonary. Yesterday patient was transferred to ICU due to high pressure tension. She was given some IV fluids in the form of both crystalloid and albumin. Blood pressure remained low hence she was moved to ICU and was started on Osiel-Synephrine. She also was in AFib. Patient's hypoxia and respiratory status worsened requiring increased oxygen and through the night. This morning she was given Lasix and some Valium for anxiety. This morning when I evaluated the patient she states she was feeling better breathing was better. She did complain of back pain which was chronic for which she takes oxycodone at home. She has some cough which is dry. She does not feel short of breath at this time. She denies any chest pain abdominal pain. All other review of systems were reviewed and were negative Review of Systems Review of Systems: All systems reviewed & are unremarkable except as noted in HPI and below (HPI) [facility] Past Medical History Medical History CHF (congestive heart failure) 08/14/2024 Summary 1. Left ventricular chamber dimension is normal. 2. Left ventricular systolic function is normal, estimated at 50-55. 3. The left ventricular diastolic function is grade I diastolic dysfunction. 4. Right ventricular systolic function is normal. 5. There is mild to moderate mitral valve regurgitation. 6. There is mild tricuspid valve regurgitation. 7. There is trivial pericardial effusion. Port-A-Cath in place Chronic anticoagulation Due to atrial fibrillation Paroxysmal atrial fibrillation 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 Hypertension Surgical History Surgical History History of insertion of tunneled central venous catheter (CVC) with port (04/2020) History of laparoscopy History of hysterectomy (1997) History of tonsillectomy (1965) History of cholecystectomy (1998) Family History Family History Grandparent Lung cancer Mother Skin cancer FH: kidney cancer Breast cancer Small bowel cancer Heart problem Congestive heart failure Pacemaker Mother No problems noted. Father Skin cancer Myocardial infarct Heart problem Pacemaker Cardiac defibrillator in place Sibling Pulmonary embolism Heart problem Coronary artery disease Sibling Arthritis Social History Social History Social History: Patient lives at home with her of 50 years. She has 1 son. 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 She used to smoke a some much as 2 packs of cigarettes per day and started smoking around age 19. She cut back significantly on her smoking after cancer diagnosis in 2020. She still smokes 1 or 2 cigarettes a day. She denies any history of alcohol use or illicit substance use. Surrogate medical decision maker: Elliott Wallis, spouse Code status: DNR/DNI Smoking packs per day: 2 Smoking cigarettes per day: 40.0 Years smoked: 50 Smoking pack-years: 100.00 Smoking status: Current every day smoker Tobacco type: cigarettes Second hand tobacco smoke exposure: No Additional smoking assessment comments: Pt has cut back on smoking, but states she still smokes 2-3 cigarettes/day. Alcohol intake: never Substance use: never Substance use type: does not use Do You Feel Safe in your Home?: Yes Lack of Transportation: No Lack of Food: Never True Current Housing: I Have Housing Concerned About Future Housing: No Difficulty Paying Gas/Electric Bills: No Difficulty Paying for Meds: No Currently Unemployed: No Education: High School Diploma/GED Difficulty w/ Childcare or Family Care: No Living arrangements: with family Spiritual care concerns: No Meds Home Medications and Allergies Home Medications ?Medication ?Instructions ?Recorded ?Confirmed ?Type alprazolam 0.25 mg tablet (Xanax) 0.25 mg PO BID PRN Anxiety 04/30/20 01/17/25 History diphenhydramine HCl 25 mg capsule 25 mg PO HS PRN allergy symptoms 10/14/23 01/17/25 History (Benadryl) gabapentin 300 mg capsule 300 mg PO HS 10/14/23 01/17/25 History apixaban 5 mg tablet (Eliquis) 5 mg PO Q12HR #60 tabs 10/18/23 01/17/25 Rx metoprolol succinate 25 mg 25 mg PO QAM #30 tabs 10/18/23 01/17/25 Rx tablet,extended release 24 hr (Toprol XL) fluticasone propionate 50 1 spray intranasal DAILY PRN 06/28/24 01/17/25 History mcg/actuation nasal allergy symptoms spray,suspension ibuprofen 200 mg tablet (Advil) 400 mg PO Q6H PRN fever or pain 06/28/24 01/17/25 History sacubitril 24 mg-valsartan 26 mg 1 tablet PO BID 06/28/24 01/17/25 History tablet (Entresto) sotorasib 320 mg tablet (Lumakras) 960 mg PO QHS 06/28/24 01/17/25 History lidocaine 5 % topical patch 2 patch topical DAILY 08/12/24 01/17/25 History amiodarone 200 mg tablet (Pacerone) 200 mg PO DAILY@0800 #30 tabs 08/16/24 01/17/25 Rx fluticasone fur. 100 mcg-umeclid 1 inh inhalation Q24H #60 ea 11/29/24 01/17/25 Rx 62.5 mcg-vilant 25 mcg inhalat.powder (Trelegy Ellipta) oxycodone 10 mg tablet 10 mg PO Q6H PRN pain #120 tabs 01/02/25 01/17/25 Rx dimethicone 1 %-zinc oxide 10 1 applic topical 4-6XD PRN skin 01/17/25 01/17/25 History %-vit A and D-aloe vera topical irritation cream (A and D Diaper Rash Cream) nicotine 21 mg/24 hr daily 1 patch transdermal DAILY 01/17/25 01/17/25 History transdermal patch Allergies Allergy/AdvReac Type Severity Reaction Status Date / Time pentazocine (From Anajli) Allergy Irritable Verified 01/18/25 06:07 [id number]-TbL Reductase AdvReac Severe Muscle Pain Verified 01/18/25 06:07 Inhibitor Vital Signs Vital Signs - 24 hr 01/22/25 11:55 01/22/25 12:00 01/22/25 12:10 Temperature Pulse Rate 127 H 137 H 136 H Respiratory Rate 18 18 Blood Pressure Pulse Oximetry Oxygen Delivery Oxygen Flow Rate Fraction of Inspired Oxygen 01/22/25 14:08 01/22/25 15:35 01/22/25 15:35 Temperature Pulse Rate 135 H 132 H 132 H Respiratory Rate 20 18 18 Blood Pressure 86/54 L Pulse Oximetry 96 88 L Oxygen Delivery Nasal Cannula Oxygen Flow Rate 1 Fraction of Inspired Oxygen 01/22/25 15:45 01/22/25 16:00 01/22/25 16:00 Temperature Pulse Rate 127 H 134 H 131 H Respiratory Rate 18 20 Blood Pressure 70/52 L Pulse Oximetry 98 Oxygen Delivery Oxygen Flow Rate Fraction of Inspired Oxygen 01/22/25 17:50 01/22/25 18:50 01/22/25 19:39 Temperature 36.5 C Pulse Rate 131 H 130 H Respiratory Rate 20 Blood Pressure 82/60 L 94/71 L Pulse Oximetry 94 Oxygen Delivery Oxygen Flow Rate Fraction of Inspired Oxygen 01/22/25 20:00 01/22/25 20:35 01/22/25 20:40 Temperature 36.8 C Pulse Rate 126 H 126 H 119 H Respiratory Rate 20 18 Blood Pressure 89/67 L Pulse Oximetry 94 97 Oxygen Delivery Nasal Cannula Oxygen Flow Rate 3 Fraction of Inspired Oxygen 28 01/22/25 21:33 01/22/25 21:33 01/22/25 22:00 Temperature Pulse Rate 127 H 127 H 132 H Respiratory Rate 20 20 18 Blood Pressure 88/78 L Pulse Oximetry 95 97 Oxygen Delivery Nasal Cannula Oxygen Flow Rate 2.5 Fraction of Inspired Oxygen 01/23/25 00:00 01/23/25 00:00 01/23/25 00:00 Temperature Pulse Rate 125 H 132 H 125 H Respiratory Rate 18 16 Blood Pressure 77/63 L Pulse Oximetry 97 92 Oxygen Delivery Nasal Cannula Oxygen Flow Rate 3 Fraction of Inspired Oxygen 28 01/23/25 00:19 01/23/25 00:28 01/23/25 01:00 Temperature Pulse Rate 125 H 127 H 128 H Respiratory Rate 18 16 18 Blood Pressure 71/53 L Pulse Oximetry 96 Oxygen Delivery Oxygen Flow Rate Fraction of Inspired Oxygen 01/23/25 02:00 01/23/25 02:32 01/23/25 03:00 Temperature Pulse Rate 75 107 H 107 H Respiratory Rate 16 16 Blood Pressure 62/39 L 62/39 L Pulse Oximetry 92 92 Oxygen Delivery Nasal Cannula Oxygen Flow Rate 3 Fraction of Inspired Oxygen 28 01/23/25 03:00 01/23/25 03:00 01/23/25 03:03 Temperature Pulse Rate 117 H 108 H 117 H Respiratory Rate 16 Blood Pressure 65/44 L 65/44 L Pulse Oximetry 89 L Oxygen Delivery Oxygen Flow Rate Fraction of Inspired Oxygen 01/23/25 03:30 01/23/25 04:00 01/23/25 04:00 Temperature Pulse Rate 117 H 109 H 118 H Respiratory Rate 16 18 Blood Pressure 90/62 L 91/59 L Pulse Oximetry 94 93 Oxygen Delivery Oxygen Flow Rate Fraction of Inspired Oxygen 01/23/25 04:00 01/23/25 04:26 01/23/25 06:00 Temperature 37.1 C Pulse Rate 118 H 119 H 131 H Respiratory Rate 16 28 H Blood Pressure 91/59 L 90/65 L Pulse Oximetry 100 Oxygen Delivery Oxygen Flow Rate Fraction of Inspired Oxygen 01/23/25 06:00 01/23/25 06:25 01/23/25 06:30 Temperature Pulse Rate 131 H 130 H 135 H Respiratory Rate 26 H Blood Pressure 90/65 L 81/56 L Pulse Oximetry 97 Oxygen Delivery Non-Rebreather Mask Oxygen Flow Rate 10 Fraction of Inspired Oxygen 01/23/25 06:35 01/23/25 06:42 01/23/25 06:50 Temperature Pulse Rate 130 H 130 H 135 H Respiratory Rate 22 H 24 H 22 H Blood Pressure Pulse Oximetry 98 97 Oxygen Delivery Simple Face Mask High Flow Therapy with Na Oxygen Flow Rate 7 50 Fraction of Inspired Oxygen 60 01/23/25 07:00 01/23/25 07:00 01/23/25 07:35 Temperature Pulse Rate 135 H 135 H 135 H Respiratory Rate 33 H Blood Pressure 82/70 L 82/70 L Pulse Oximetry 98 Oxygen Delivery Oxygen Flow Rate Fraction of Inspired Oxygen 01/23/25 08:00 01/23/25 08:00 01/23/25 08:00 Temperature 37.5 C Pulse Rate 107 H 107 H Respiratory Rate 25 H Blood Pressure 88/27 L Pulse Oximetry 93 97 Oxygen Delivery Non-Rebreather Mask Oxygen Flow Rate 15 Fraction of Inspired Oxygen 3 01/23/25 08:00 01/23/25 09:00 01/23/25 09:09 Temperature Pulse Rate 103 H 108 H 106 H Respiratory Rate Blood Pressure 81/63 L 95/80 L Pulse Oximetry Oxygen Delivery Oxygen Flow Rate Fraction of Inspired Oxygen 01/23/25 09:09 01/23/25 09:30 01/23/25 09:30 Temperature Pulse Rate 106 H 98 98 Respiratory Rate Blood Pressure 76/50 L 76/40 L Pulse Oximetry Oxygen Delivery Oxygen Flow Rate Fraction of Inspired Oxygen 01/23/25 09:35 01/23/25 09:44 01/23/25 10:00 Temperature Pulse Rate 92 96 101 H Respiratory Rate 22 H 20 Blood Pressure 82/55 L Pulse Oximetry 98 94 Oxygen Delivery Non-Rebreather Mask Venturi Mask Oxygen Flow Rate 15 15 Fraction of Inspired Oxygen 100 50 01/23/25 10:00 01/23/25 11:00 01/23/25 11:00 Temperature 37.1 C 37.6 C Pulse Rate 95 90 90 Respiratory Rate 22 H 19 Blood Pressure 82/55 L 94/66 L 94/56 L Pulse Oximetry 93 94 Oxygen Delivery Oxygen Flow Rate Fraction of Inspired Oxygen 01/23/25 11:22 01/23/25 11:22 01/23/25 11:31 Temperature Pulse Rate 88 88 90 Respiratory Rate 21 H 21 H Blood Pressure 103/67 Pulse Oximetry 94 Oxygen Delivery Venturi Mask Oxygen Flow Rate 15 Fraction of Inspired Oxygen 50 01/23/25 11:31 Temperature Pulse Rate 90 Respiratory Rate Blood Pressure 103/67 Pulse Oximetry Oxygen Delivery Oxygen Flow Rate Fraction of Inspired Oxygen Exam Narrative: General: Old frail cachectic female who is alert awake and in mild tachypnea Lungs/Chest: Trachea central breath sounds are decreased at bases, mild tachypnea Cardiac: Tachycardia, irregular rate and rhythm. Normal S1 S2. No murmurs Circulation: Pedal pulses are intact and symmetrical. Abdomen: Normal bowel sounds.. Soft. NT. ND. Extremities: Bilateral pitting edema present : Clayton in place Neurologic: Follows commands. Moves all 4 extremities PERRL AO x3 Skin: Bruising all over body Results Labs 01/23/25 07:03 01/23/25 07:03 Labs: Impressions Liver Biopsy Ultrasound 01/22/25 14:31 IMPRESSION: 1. Successful Ultrasound-guided biopsy of a 4.0 cm mass in the left hepatic lobe. Thoracentesis Ultrasound 01/22/25 15:44 IMPRESSION: 1. Successful ultrasound-guided thoracentesis yielding 1100 mL of vhjwhxk-kezud-xdrffng fluid. Chest X-Ray 01/23/25 08:47 IMPRESSION: Bilateral effusions with increased vascular congestion and possible worsening pulmonary edema compared to yesterday's exam. Short CBC 01/23/25 Range/Units 07:03 WBC 60.0 H* (4.5-10.0) K/mm3 Hgb 13.2 (12.0-15.0) g/dL Hct 45.0 (37.0-47.0) % Plt Count 61 L (150-375) k/mm3 BMP 01/23/25 07:03 Sodium 131 L Potassium 4.3 Chloride 102 Carbon Dioxide 24 BUN 25 H Creatinine 0.93 Glucose 124 H Calcium 7.9 L Liver Function 01/23/25 Range/Units 07:03 Total Bilirubin 1.0 (0.2-1.3) mg/dL AST 196 H (14-36) U/L ALT 30 (6-35) U/L Alkaline Phosphatase 180 H (38-126) U/L Albumin 3.0 L (3.5-5.1) g/dL Quality VTE Prophylaxis VTE prophylaxis: mechanical ordered Hospitalist MIPS Advance Care Plan I have confirmed that the patient's Advanced Care Plan is present, code status is documented, or surrogate decision maker is listed in patient medical record.: Yes Medication Reconciliation I have utilized all available resources to obtain, update and review the patients current medications (includes all prescriptions, OTC, herbals, cannabis, and nutritional supplements).: Yes
--- NOTE | 2025-01-23 11:57 | P.PNCA_ITS ---
Progress Note: A&P Assessment and Plan (1) Acute hypoxic respiratory failure: Code(s): J96.01 - Acute respiratory failure with hypoxia Status: Acute (2) Shock: Code(s): R57.9 - Shock, unspecified Status: Acute (3) Metastatic non-small cell lung cancer: Code(s): C34.90 - Malignant neoplasm of unspecified part of unspecified bronchus or lung Status: Acute (4) Atrial fib/flutter, transient: Code(s): I48.91 - Unspecified atrial fibrillation; I48.92 - Unspecified atrial flutter Status: Acute (5) Acute heart failure with reduced ejection fraction (HFrEF, <= 40%): Code(s): I50.21 - Acute systolic (congestive) heart failure Status: Acute Plan Impression: 1. Paroxysmal atrial flutter/fibrillation with rapid ventricular response. Patient was admitted in normal sinus rhythm. Patient was given IV Cardizem with improvement of the heart rate. Currently blood pressure is 86/54 and heart rate is 135 per minute. Patient was started on IV digoxin and amiodarone. Heart rate now improved. 2. Known history of metastatic non-small CA of the lung with metastasis to liver. Status post liver biopsy. 3. Increasing shortness of breath the with a right pleural effusion. Status post pleurocentesis. Patient now higher dose component of systolic heart failure and congestive heart failure. Patient is tachypneic min using BiPAP mask. 4. Dilated cardiomyopathy with severely reduced systolic function in range of 20-25%. Left ventricle is mildly enlarged. Severe global hypokinesis noted. Patient has vnso-mh-[id number] mitral regurgitation and right ventricular systolic dysfunction. 5. Acute on chronic systolic heart failure. This is complicated by hypertensions in reduced the cardiac output. Findings are suspicious for progressive cardiogenic shock. 6. Hypertension likely secondary to underlying conditions. WBC count is markedly elevated. Rule out sepsis. Patient may also have poor cardiac output and forward flow causing hypotension. Baseline blood pressure is 100 to 110 systolic. Patient is also on medication that will cause hypertension like Ent sy. 7. DNR status. 8. Markedly elevated WBC count with thrombocytopenia. Rule out sepsis. Recommendations: 1. Continue medical management is pertinent for this patient. Advanced lung cancer with Mets to liver on chemotherapy. Status post liver biopsy and right pleurocentesis. 2. Currently on moderate dose of IV Levophed with improved blood pressure. 3. Heart rate is 90 with atrial fibrillation and stable on current medications. 4. Maintain blood pressure with the vasopressors. 5. Will discuss with family. Very poor prognosis for this patient. Patient is already DNR. Discussed with the at the bedside. Continue with comfort measures and symptomatic treatment. Subjective Date/time seen: 01/23/25 11:57 Interval history: Review of HPI: Patient is a 69-year-old the female admitted on 01/17/2025 with shortness of breath. Patient has known history of lung cancer status post chemotherapy now with Mets to liver presented to the emergency room with shortness of breath. Patient has increasing and progressive shortness of breath with leg edema. No complaints of chest pain, abdominal pain, nausea vomiting or diarrhea. No complaints of fever or chills. Past medical history significant for paroxysmal atrial fibrillation. Patient is on chronic anticoagulation. Patient also has history of dilated cardiomyopathy related to drug chemotherapy, and diagnosis of non-small CA of the lung back in February of 2020 on the left side with multiple pulmonary lesions. History of hypertension. Patient was noted to have a heart rate 130 per minute after IV platelet infusion and subsequent EKG revealed atrial flutter with rapid ventricular response on 01/17/2025. Admitting EKG showed normal sinus rhythm prior to this EKG Admitting blood pressure was 81/60 and heart rate was 96 per minute. O2 saturation was 92% and patient was afebrile. Subsequently blood pressure improved with hydration. Admitting laboratory data WBC count 34.5 1000, hemoglobin 13.5 and platelets are 62,000. Sodium 129, potassium 4.4, BUN is 17 and creatinine is 1.035. Liver enzymes are elevated with AST of 241, alkaline phos 168 and LDH is 679. Admitting proBNP was 4630 and cardiac troponin was negative for CT chest on 01/17/2025 revealed small to moderate right pleural effusion and small left pleural effusion. Patient has 4 x 2.3 cm lenticular mass in the posterior lingula suspicious for metastatic disease. Patient is 1.8 x 1.6 cm peak related nodule in the right lower lobe also represented metastatic disease. Patient underwent ultrasound-guided biopsy of the hepatic mass today as well as right thoracic pleural centesis. Patient is DNR. Subjective: Patient was transferred to ICU this morning for persistent hypotension Patient was examined at the bedside. Patient is started on Levophed and currently blood pressure remains low at Patient is on BiPAP mask and appears to be terminal. Discussed with the at the bedside Review of Systems Review of Systems: Cannot be assessed. Patient the appears very ill in ICU. Exam Narrative: Patient was examined in ICU. Patient is awake and responds to verbal stimuli. Using BiPAP mask up Blood pressure is 103/67 and heart rate is 90 per minute. Respiratory rate is 23 per minute. Head and neck exam is unremarkable Neck is supple. JVD is noted. Lungs reveal decreased air entry bilaterally with rhonchi per Heart sounds reveal normal S1-S2. Rhythm is irregular. Systolic murmur is noted. Abdomen is soft nontender. There is no distention or ascites. Status post liver biopsy on 07/2024 Extremities reveal the no pedal edema. Neurological examination cannot be assessed. Objective Data Vital Signs Vital Signs: Vital Signs - 24 hr 01/22/25 12:00 01/22/25 12:10 01/22/25 14:08 Temperature Pulse Rate 137 H 136 H 135 H Respiratory Rate 18 20 Blood Pressure 86/54 L Pulse Oximetry 96 Oxygen Delivery Oxygen Flow Rate Fraction of Inspired Oxygen 01/22/25 15:35 01/22/25 15:35 01/22/25 15:45 Temperature Pulse Rate 132 H 132 H 127 H Respiratory Rate 18 18 18 Blood Pressure Pulse Oximetry 88 L Oxygen Delivery Nasal Cannula Oxygen Flow Rate 1 Fraction of Inspired Oxygen 01/22/25 16:00 01/22/25 16:00 01/22/25 17:50 Temperature Pulse Rate 134 H 131 H Respiratory Rate 20 Blood Pressure 70/52 L 82/60 L Pulse Oximetry 98 Oxygen Delivery Oxygen Flow Rate Fraction of Inspired Oxygen 01/22/25 18:50 01/22/25 19:39 01/22/25 20:00 Temperature 36.5 C Pulse Rate 131 H 130 H 126 H Respiratory Rate 20 Blood Pressure 94/71 L Pulse Oximetry 94 Oxygen Delivery Oxygen Flow Rate Fraction of Inspired Oxygen 01/22/25 20:35 01/22/25 20:40 01/22/25 21:33 Temperature 36.8 C Pulse Rate 126 H 119 H 127 H Respiratory Rate 20 18 20 Blood Pressure 89/67 L Pulse Oximetry 94 97 95 Oxygen Delivery Nasal Cannula Nasal Cannula Oxygen Flow Rate 3 2.5 Fraction of Inspired Oxygen 28 01/22/25 21:33 01/22/25 22:00 01/23/25 00:00 Temperature Pulse Rate 127 H 132 H 125 H Respiratory Rate 20 18 18 Blood Pressure 88/78 L Pulse Oximetry 97 97 Oxygen Delivery Nasal Cannula Oxygen Flow Rate 3 Fraction of Inspired Oxygen 28 01/23/25 00:00 01/23/25 00:00 01/23/25 00:19 Temperature Pulse Rate 132 H 125 H 125 H Respiratory Rate 16 18 Blood Pressure 77/63 L Pulse Oximetry 92 Oxygen Delivery Oxygen Flow Rate Fraction of Inspired Oxygen 01/23/25 00:28 01/23/25 01:00 01/23/25 02:00 Temperature Pulse Rate 127 H 128 H 75 Respiratory Rate 16 18 16 Blood Pressure 71/53 L 62/39 L Pulse Oximetry 96 92 Oxygen Delivery Oxygen Flow Rate Fraction of Inspired Oxygen 01/23/25 02:32 01/23/25 03:00 01/23/25 03:00 Temperature Pulse Rate 107 H 107 H 117 H Respiratory Rate 16 Blood Pressure 62/39 L Pulse Oximetry 92 Oxygen Delivery Nasal Cannula Oxygen Flow Rate 3 Fraction of Inspired Oxygen 28 01/23/25 03:00 01/23/25 03:03 01/23/25 03:30 Temperature Pulse Rate 108 H 117 H 117 H Respiratory Rate 16 16 Blood Pressure 65/44 L 65/44 L 90/62 L Pulse Oximetry 89 L 94 Oxygen Delivery Oxygen Flow Rate Fraction of Inspired Oxygen 01/23/25 04:00 01/23/25 04:00 01/23/25 04:00 Temperature Pulse Rate 109 H 118 H 118 H Respiratory Rate 18 Blood Pressure 91/59 L 91/59 L Pulse Oximetry 93 Oxygen Delivery Oxygen Flow Rate Fraction of Inspired Oxygen 01/23/25 04:26 01/23/25 06:00 01/23/25 06:00 Temperature 37.1 C Pulse Rate 119 H 131 H 131 H Respiratory Rate 16 28 H Blood Pressure 90/65 L 90/65 L Pulse Oximetry 100 Oxygen Delivery Oxygen Flow Rate Fraction of Inspired Oxygen 01/23/25 06:25 01/23/25 06:30 01/23/25 06:35 Temperature Pulse Rate 130 H 135 H 130 H Respiratory Rate 26 H 22 H Blood Pressure 81/56 L Pulse Oximetry 97 98 Oxygen Delivery Non-Rebreather Mask Simple Face Mask Oxygen Flow Rate 10 7 Fraction of Inspired Oxygen 01/23/25 06:42 01/23/25 06:50 01/23/25 07:00 Temperature Pulse Rate 130 H 135 H 135 H Respiratory Rate 24 H 22 H 33 H Blood Pressure 82/70 L Pulse Oximetry 97 98 Oxygen Delivery High Flow Therapy with Na Oxygen Flow Rate 50 Fraction of Inspired Oxygen 60 01/23/25 07:00 01/23/25 07:35 01/23/25 08:00 Temperature Pulse Rate 135 H 135 H Respiratory Rate Blood Pressure 82/70 L Pulse Oximetry 93 Oxygen Delivery Non-Rebreather Mask Oxygen Flow Rate 15 Fraction of Inspired Oxygen 3 01/23/25 08:00 01/23/25 08:00 01/23/25 08:00 Temperature 37.5 C Pulse Rate 107 H 107 H 103 H Respiratory Rate 25 H Blood Pressure 88/27 L 81/63 L Pulse Oximetry 97 Oxygen Delivery Oxygen Flow Rate Fraction of Inspired Oxygen 01/23/25 09:00 01/23/25 09:09 01/23/25 09:09 Temperature Pulse Rate 108 H 106 H 106 H Respiratory Rate Blood Pressure 95/80 L Pulse Oximetry Oxygen Delivery Oxygen Flow Rate Fraction of Inspired Oxygen 01/23/25 09:30 01/23/25 09:30 01/23/25 09:35 Temperature Pulse Rate 98 98 92 Respiratory Rate 22 H Blood Pressure 76/50 L 76/40 L Pulse Oximetry 98 Oxygen Delivery Non-Rebreather Mask Oxygen Flow Rate 15 Fraction of Inspired Oxygen 100 01/23/25 09:44 01/23/25 10:00 01/23/25 10:00 Temperature 37.1 C Pulse Rate 96 101 H 95 Respiratory Rate 20 22 H Blood Pressure 82/55 L 82/55 L Pulse Oximetry 94 93 Oxygen Delivery Venturi Mask Oxygen Flow Rate 15 Fraction of Inspired Oxygen 50 01/23/25 11:00 01/23/25 11:00 01/23/25 11:22 Temperature 37.6 C Pulse Rate 90 90 88 Respiratory Rate 19 21 H Blood Pressure 94/66 L 94/56 L Pulse Oximetry 94 94 Oxygen Delivery Venturi Mask Oxygen Flow Rate 15 Fraction of Inspired Oxygen 50 01/23/25 11:22 01/23/25 11:31 01/23/25 11:31 Temperature Pulse Rate 88 90 90 Respiratory Rate 21 H Blood Pressure 103/67 103/67 Pulse Oximetry Oxygen Delivery Oxygen Flow Rate Fraction of Inspired Oxygen 01/23/25 11:34 Temperature Pulse Rate 90 Respiratory Rate 23 H Blood Pressure Pulse Oximetry Oxygen Delivery Oxygen Flow Rate Fraction of Inspired Oxygen Intake/Output Intake/Output: Intake & Output 01/20/25 01/21/25 01/22/25 01/23/25 23:59 23:59 23:59 23:59 Intake Total 1820 1535 2659.0 700.4 Output Total 750 1103 703 Balance 1070 1535 1556.0 -2.6 Meds/Results Medications: Active Medications Generic Name Dose Route Start Last Admin Trade Name Freq PRN Reason Stop Dose Admin Alprazolam 0.25 mg 01/17/25 23:35 01/22/25 22:18 Alprazolam (*Crx) 0.25 Mg Tablet PO 0.25 mg BID PRN Administration Anxiety Amiodarone HCl 200 mg 01/18/25 08:00 01/23/25 09:09 Amiodarone Hcl 200 Mg Tablet PO 200 mg DAILY@0800 BRANT Administration Diphenhydramine HCl 25 mg 01/17/25 23:35 Diphenhydramine Hcl Cap 25 Mg Capsule PO HS PRN allergy symptoms Fluticasone Propionate 1 spray 01/17/25 23:35 Fluticasone Propionate 0.05% Na Spr 16 Gm Btl (*Bkc) NASAL DAILY PRN allergy symptoms Furosemide 40 mg 01/23/25 13:00 Furosemide Inj 40 Mg/4 Ml Vial IV PUSH 01/23/25 13:01 ONCE ONE Gabapentin 300 mg 01/17/25 23:50 01/22/25 22:39 Gabapentin 300 Mg Capsule PO 300 mg On Hold: 01/23/25 08:15 HS BRANT Administration Heparin Sodium (Beef Lung) 50 units 01/20/25 09:00 01/23/25 09:03 Heparin Flush 50 Units/5 Ml Syringe IV PUSH Not Given QAM BRANT Heparin Sodium (Beef Lung) 50 units 01/19/25 15:32 Heparin Flush 50 Units/5 Ml Syringe IV PUSH PRN PRN after intermittent infusion Heparin Sodium (Beef Lung) 50 units 01/19/25 15:32 Heparin Flush 50 Units/5 Ml Syringe IV PUSH PRN PRN after blood draws Heparin Sodium (Porcine) 500 units 01/19/25 15:32 Heparin Sodium Lock Flush 500 Units/5 Ml Syringe IV PUSH PRN PRN see comments below Piperacillin Sod/Tazobactam 100 mls @ 200 mls/hr 01/19/25 12:00 01/23/25 11:32 Sod 4.5 gm/ Sodium Chloride IVPB 100 mls/hr Q6H BRANT Administration Phenylephrine HCl 50 mg/ 250 mls @ 45 mls/hr 01/23/25 02:15 01/23/25 11:31 Sodium Chloride IV CONT 150 mcg/min .Q5H34M BRANT 45 mls/hr Protocol Administration 150 MCG/MIN Ibuprofen 400 mg 01/17/25 23:35 01/22/25 22:20 Ibuprofen 400 Mg Tablet PO 400 mg Q6H PRN Administration fever or pain (1-3) Ketorolac Tromethamine 30 mg 01/22/25 18:28 01/23/25 10:20 Ketorolac 30 Mg/Ml Vial (*Bkc) IV PUSH 30 mg Q6H PRN Administration Pain Rated 4-6 Levalbuterol HCl 1.25 mg 01/21/25 20:00 01/23/25 11:22 Levalbuterol Neb 1.25 Mg/3 Ml INHALATION 1.25 mg Q4HRT BRANT Administration Lidocaine 2 patch 01/18/25 09:00 01/23/25 09:10 Lidocaine 5% Patch TOPICAL 2 patch DAILY BRANT Administration Metoprolol Succinate 25 mg 01/18/25 09:00 01/23/25 09:09 Metoprolol Succinate Ext Rel 25 Mg Tabcr PO 25 mg QAM BRANT Administration Miscellaneous Information 0 each 01/18/25 02:15 01/20/25 12:32 Sotorasib [Lumakras] 320 Mg Tablet- Nonformulary. Please Obtain A Home Supply If Possible. XX 02/17/25 02:14 Not Given CLARIFY BRANT Nicotine 1 patch 01/18/25 09:00 01/23/25 09:09 Nicotine (*Pbkc) 21 Mg Patch TRANSDERM 1 patch DAILY BRANT Administration Non-Formulary Medication 960 mg 01/18/25 21:00 Sotorasib [Lumakras] PO 02/17/25 20:59 QHS BRANT Oxycodone HCl 10 mg 01/17/25 23:35 01/22/25 06:04 Oxycodone Hcl (*Crx) 5 Mg Tab Ir PO 10 mg Q6H PRN Administration Pain 7-10 Sacubitril/Valsartan 1 tab 01/18/25 09:00 01/22/25 22:39 Sacubitril/Valsartan 24-26 Mg Tablet PO Not Given On Hold: 01/23/25 08:16 Q12HR BRANT Sodium Chloride 1 spray 01/18/25 09:53 Saline 0.65% Lalo Soln 44 Ml Btl NASAL Q6HR PRN Congestion Sodium Chloride 10 ml 01/19/25 22:00 01/22/25 14:50 Central Line Flush IV PUSH 10 ml Q8HR BRANT Administration Vitamin A/Vitamin D 1 applic 01/18/25 02:13 Vitamin A & D Ointment 60 Gm Tube TOPICAL Q4-6H PRN skin irritation Radiology Results: ITS Impressions Chest CT 01/17/25 17:21 IMPRESSION: 1. Increase in size of now small to moderate right and very small left pleural effusions with progression of associated compressive atelectasis in the dependent lower lobes, right greater than left. 2. No significant interval change in a 4.0 x 2.3 cm lenticular mass in the posterior lingula consistent with biopsy-proven lung cancer or cervical scattered pulmonary nodules with increased FDG uptake on prior PET/CT suspicious for metastatic disease. 3. Interval increase in size of a 1.8 x 1.6 cm spiculated nodule with luevano rrounding reticulonodular opacities in the posterior basilar segment of the right lower lobe which could represent progression of metastatic disease with lymphangitic carcinomatosis and/or focal pneumonia with surrounding endobronchial spread of disease. Liver Biopsy Ultrasound 01/22/25 14:31 IMPRESSION: 1. Successful Ultrasound-guided biopsy of a 4.0 cm mass in the left hepatic lobe. Thoracentesis Ultrasound 01/22/25 15:44 IMPRESSION: 1. Successful ultrasound-guided thoracentesis yielding 1100 mL of vlswcid-lxeuz-hmfctmt fluid. Chest X-Ray 01/23/25 08:47 IMPRESSION: Bilateral effusions with increased vascular congestion and possible worsening pulmonary edema compared to yesterday's exam. Labs Labs: Laboratory Results - last 24 hr 01/22/25 01/22/25 01/23/25 11:10 19:35 07:03 WBC 60.0 H* RBC 4.31 Hgb 13.2 Hct 45.0 MCV 104.4 H MCH 30.6 MCHC 29.3 L RDW 14.4 Plt Count 61 L MPV 10.3 % Immature Plt Fraction 4.9 Puncture Site ABG pH ABG pCO2 ABG pO2 ABG PO2/FiO2 Ratio ABG HCO3 ABG O2 Saturation ABG O2 Content ABG Base Excess A-a Gradient Oxyhemoglobin Total Hemoglobin O2 Delivery Device O2 Liters/Min FiO2 Sodium 131 L Potassium 4.3 Chloride 102 Carbon Dioxide 24 Anion Gap 5 BUN 25 H Creatinine 0.93 Estim Creat Clear Calc 50 Estimated GFR 60 Glucose 124 H Lactic Acid 1.6 Calcium 7.9 L Magnesium 1.8 Total Bilirubin 1.0 AST 196 H ALT 30 Alkaline Phosphatase 180 H Total Protein 5.2 L Albumin 3.0 L Procalcitonin 0.1 Pleural Fluid Source Pleural fluid Pleural Color Other Pleural Appearance Cloudy Pleural RBC 95827 H Pleural Nuc Cells 1138 H Pleural Neutrophils 35 H Pleural Lymphocytes 29 Pleural Monocytes 22 Pleural Macrophages 14 01/23/25 09:26 WBC RBC Hgb Hct MCV MCH MCHC RDW Plt Count MPV % Immature Plt Fraction Puncture Site Left brachial ABG pH 7.246 L* ABG pCO2 53.3 H ABG pO2 103.5 H ABG PO2/FiO2 Ratio 1.03 ABG HCO3 22.6 ABG O2 Saturation 96.8 ABG O2 Content 20.1 ABG Base Excess -5.2 A-a Gradient 556.2 Oxyhemoglobin 96.2 Total Hemoglobin 14.8 O2 Delivery Device Non-rebreather mask O2 Liters/Min 15.0 FiO2 100 Sodium Potassium Chloride Carbon Dioxide Anion Gap BUN Creatinine Estim Creat Clear Calc Estimated GFR Glucose Lactic Acid Calcium Magnesium Total Bilirubin AST ALT Alkaline Phosphatase Total Protein Albumin Procalcitonin Pleural Fluid Source Pleural Color Pleural Appearance Pleural RBC Pleural Nuc Cells Pleural Neutrophils Pleural Lymphocytes Pleural Monocytes Pleural Macrophages
--- NOTE | 2025-01-23 12:15 | PM.EVENT ---
Event Note Event Note Event Note: Family Meeting I met with patient in presence of her , daughter and other family members. We discussed her current medical situation including metastatic lung cancer, congestive heart failure, AFib with RVR, hypotension, respiratory failure secondary to pulmonary edema, CHF, COPD, pneumonia. We also discussed that her prognosis was poor overall. She after did discussing with the family has decided to proceed with hospice care. She told me that she does not 1 a go home and wants inpatient hospice and be transferred to a Room where she can not see her grandkids. I have discussed this with internal medicine hospitalist who is in agreement with the plan. We will start patient on inpatient palliative care and transferred to floor. I have discussed with child daycare worker and she will request hospice services to visit patient.
[2025-01-23] MEDS: diazePAM INJ (*CRX) 10 MG/2 ML SYRINGE 5 MG IV PUSH ×3 (13:26→18:35)
[2025-01-23] MEDS: MORPHINE SULFATE (*CRX) 4 MG/ML INJ IV PUSH ×3 (13:26→18:33)
--- NOTE | 2025-01-23 14:30 | PC.NURSE ---
Received from via bed. Family at bedside. Forrest present.
--- NOTE | 2025-01-23 14:37 | PC.NURSE ---
This patient, Yessenia Wallis, was transferred to [[id number]] on 01/23/25 at 1428. Personal belongings sent with patient. Report given to [Cristina OCASIO]. Appropriate documentation sent with patient.
[2025-01-23 16:08] LABS: Triglycerides, Body Fluid 33 mg/dL (Not Estab.)
[2025-01-23 16:08] LABS: Glucose, Body Fluid 98 mg/dL (.)
[2025-01-23 16:08] LABS: LD, Body Fluid 521 IU/L (.)
[2025-01-23 16:08] LABS: Albumin, Body Fluid 1.9 g/dL (Not Estab.)
--- NOTE | 2025-01-23 21:43 | PC.NURSE ---
At approx. 2016, pt's spouse got a hold of me and stated pt looked like she had stopped breathing. Went in to pt's room to check on pt and no visible respirations noted, pt on a nonrebreather mask. Used my stethoscope to listen for lung sounds and heart sounds. Both lung sounds and heart sounds noted to be absent. Assessed peripheral pulses (radial and pedal) and pulses were absent. Lower extremities noted to be cool but dry. Checked pt's pupillary reflex and it was absent as well. Contacted charge nurse, Eusebia Mcneil to assess pt as well. Charge nurse agreed with findings. Pt declared @2019.
[2025-01-24 10:08] LABS: Osmolality, Urine 268 mOsmol/kg (.)
[2025-01-25 02:07] LABS: Osmolality, Serum 273 mOsmol/kg (280-301)
--- NOTE | 2025-01-28 17:01 | PM.DDS ---
Discharge Summary Date and Time Date of : 01/23/25 Time of : 20:20 Provider Pronounced By: 2 RNs Name of First RN That Pronounced: Eusebia Cruz RN Name of Second RN That Pronounced: Sowmya Brower RN Probable Cause of Probable Cause of : Acute hypoxic on chronic hypercapnic respiratory failure Summary Hospital Course: 69-year-old female with PMH metastatic non-small cell lung cancer, cardiomyopathy, CHF, paroxysmal AFib, COPD, hypertension admitted on 01/17/2025 with complaint of shortness of breath. Imaging on admission show bilateral pleural effusion right greater than left. Combined with consolidation suspected to be compressive atelectasis versus pneumonia. She was started on antibiotics and had right-sided thoracentesis on 01 22 and had 1100 mL removed. She also had a liver biopsy. Started on digoxin IV by Cardiology for uncontrolled AFib. Was on amiodarone as well. Evaluated by Oncology and pulmonology. Patient was moved to ICU on 01/23/2025 due to hypotension, started on Osiel-Synephrine and patient was also in AFib. She had worsening hypoxia and was placed on Venti mask. She did not want Airvo or BiPAP. Later in the day on 01/23/2025 she decided to be comfort care. Family was present during conversations. She was transferred out of the ICU for comfort care and the same day. Additional Data Confirmation of as documented by pronouncing clinician: Pupillary Reflex, Palpable Pulses, Response to Stimuli, Heart Tones and Breath Sounds Name of Provider Notified: Ramon Torres/Neo Time Provider Notified: 20:25 Provider Requests Autopsy: No ([email or web address] to sign certificate) Family Requests Autopsy: No Billing Coordinator Notified: Yes Date [facility] Notified of : 01/23/25 Time [facility] Notified of : 21:00
== END 2025-01-23 21:32 | disposition expired | DRG 193 ==
LOC: ANHED 19:56 → ANHIMU 20:43 → ANH3MEDSUR 01-20 16:05 → ANHICU 01-22 20:04 → ANH2MED 01-23 18:38 → ANHICU 01-24 15:05
PROVIDERS: Internal Medicine; Nurse Practitioner; Nurse Practitioner Adult Health; Student in an Organized Health Care Education/Training Program; Admitting Provider Internal Medicine; Emergency Provider Student in an Organized Health Care Education/Training Program; PCP Clinical Nurse Specialist; Visit Provider General Practice
DX: J18.9 Pneumonia, unspecified organism (principal); I50.23 Acute on chronic systolic (congestive) heart failure; J96.22 Acute and chronic respiratory failure with hypercapnia; J96.01 Acute respiratory failure with hypoxia; C34.92 Malignant neoplasm of unspecified part of left bronchus or lung; I48.92 Unspecified atrial flutter; E87.1 Hypo-osmolality and hyponatremia; C78.7 Secondary malignant neoplasm of liver and intrahepatic bile duct; I42.0 Dilated cardiomyopathy; J98.11 Atelectasis; J91.0 Malignant pleural effusion; T45.1X5A Adverse effect of antineoplastic and immunosuppressive drugs, initial encounter; I95.89 Other hypotension; R57.0 Cardiogenic shock; D69.59 Other secondary thrombocytopenia; J44.9 Chronic obstructive pulmonary disease, unspecified; F41.9 Anxiety disorder, unspecified; I11.0 Hypertensive heart disease with heart failure; I48.0 Paroxysmal atrial fibrillation; Z66 Do not resuscitate; Z79.01 Long term (current) use of anticoagulants; Z90.49 Acquired absence of other specified parts of digestive tract; Z90.710 Acquired absence of both cervix and uterus; Z51.5 Encounter for palliative care
CPT/HCPCS: 32555; 36415; 36430; 36600; 47000; 71045; 71046; 71250; 76942; 80048; 80053; 82042; 82150; 82805; 82945; 83605; 83615; 83735; 83880; 83930; 83935; 83986; 84145; 84157; 84300; 84311; 84478; 85018; 85025; 85027; 85049; 85055; 85610; 85730; 86900; 86901; 87040; 87070; 87205; 87206; 87449; 87641; 88108; 88305; 88307; 88342; 89051; 93005; 94640; 94667; 97110; 97116; 97161; 97165; 97530; 97535; 99285; A9270; J0283; J0616; J0696; J1160; J1885; J1938; J2270; J2371; J2543; J2919; J3360; J3373; J7030; J7040; J7050; P9034; P9041; P9045